=== PATIENT | female | born 1965 | race Caucasian/White ===

== ENCOUNTER 2018-10-27 19:11 | Observation (INO) ==
[2018-10-27] MEDS ORDERED: MoRPHine SULFATE 4 MG/ML 1 ML CARP\\VIAL IV STA (19:39)
[2018-10-27 19:54] LABS: Basophils # (auto) 0.02 K/uL (0-0.2); Basophils % (auto) 0.2 %; Eosinophils # (auto) 0.03 K/uL (0-0.5); Eosinophils % (auto) 0.3 %; Hemoglobin 13.9 g/dL (12.0-16.0); Immature Granulocytes # (auto) 0.02 K/uL (0.00-0.02); Immature Granulocytes % (auto) 0.2 %; Lymphocytes # (auto) 2.23 K/uL (1.2-3.4); Lymphocytes % (auto) 19.8 %; Mean Corpuscular Hgb Conc 34.8 g/dL (32-36); Mean Corpuscular Volume 94.8 fL (80-100); Mean Platelet Volume 10.5 fL (7.4-10.4); Monocytes # (auto) 0.64 K/uL (0.11-0.59); Monocytes % (auto) 5.7 %; Neutrophils # (auto) 8.31 K/uL (1.4-6.5); Neutrophils % (auto) 73.8 %; Platelet Count 314 K/uL (130-400); RDW Coefficient of Variation 12.3 % (11.5-14.5); RDW Standard Deviation 42.3 fL (36.4-46.3); Red Blood Count 4.22 M/uL (4.2-5.4); White Blood Count 11.25 K/uL (4.8-10.8)
[2018-10-27 20:19] LABS: Alanine Aminotransferase 27 U/L (12-78); Albumin Level 4.4 gm/dl (3.4-5.0); Aspartate Aminotransferase 25 U/L (15-37); BUN Creatinine Ratio 21.8 (10-20); Blood Urea Nitrogen 38 mg/dl (7-18); C Reactive Protein 1.25 mg/dl (0-0.29); Calcium 10.6 mg/dl (8.5-10.1); Carbon Dioxide 20 mmol/L (21-32); Chloride 102 mmol/L (98-107); Creatinine Clr Calc Pharmacy 35.3 ml/min; Est GFR (African American) 38.4; Est GFR (Non-African American) 33.1; Glucose 205 mg/dl (70-99); Magnesium 2.3 mg/dl (1.8-2.4); Potassium 5.1 mmol/L (3.5-5.1); Sodium 134 mmol/L (136-145)
[2018-10-27 20:22] LABS: Albumin Globulin Ratio 1.2 (0.9-2); Alkaline Phosphatase 92 U/L (45-117); Bilirubin,Total 0.6 mg/dl (0.2-1); Globulin 3.7 gm/dl (2.5-4.0); Total Protein 8.1 gm/dl (6.4-8.2)
[2018-10-27] MEDS ORDERED: SODIUM CHLORIDE 0.9% 1000ML 1,000 ML IV SCH (20:30)
[2018-10-27] MEDS ORDERED: MoRPHine SULFATE 2 MG/ML CARP IV STA ×2 (20:34→23:56)
[2018-10-27] MEDS ORDERED: OPTIRAY 320 125ml IV PRN (20:57)
--- NOTE | 2018-10-27 21:06 | CT Scan Report ---
CT angio neck with con HISTORY: Pain bilateral neck pain, recent neck adjustment TECHNIQUE: Multiaxial CT angiography of the neck was performed IV contrast: 30 cc All measurem ents were calculated based on NASCET criteria. Maximum intensity projection images were also obtaine d. A dose lowering technique was utilized adhering to the principles of ALARA. COMPARISON STUDY: None. FINDINGS: The aortic arch and proximal great vessels are widely patent. Minimal plaque dimension of the carotid bifurcations. No significant stenotic process of the carotid systems. Small caliber left vertebral vessel on anatomic basis. Vertebral basilar system otherwise is unremark able. No evidence for aneurysm or dissection. His note is made of significant degenerative change of the thoracic spine. Muscular spasm is present. No evidence for compression deformity. IMPRESSION: 1. No significant stenosis or dissection of the carotid or vertebral basilar system. 2. Minimal plaque formation of the carotid bifurcations. 3. Significant degenerative disc change throughout the entire cervical region. 4. Muscle spasm. The above report was generated using voice recognition software. It may contain grammatical, syntax or spelling errors. Electronically signed by: Flakito Frey M.D. 10/27/2018 9:05 PM
--- NOTE | 2018-10-27 22:27 | Magnetic Resonance Report ---
MR cervical spine wo con HISTORY: Pain Neck pain, cannot move neck, recent chiropractor TECHNIQUE: Multiplanar multisequence MRI of the cervical spine was performed without the use of contr ast. COMPARISON STUDY: None. FINDINGS: Considerable degenerative disc change throughout the entire cervical region. Posterior bulg ing discs at virtually all levels. Signal characteristics of the cervical cord are unremarkable. C2-C3: No significant central canal or neural foraminal narrowing. C3-C4: Broad-based bulging disc creating mild impact upon the anterior right cervical cord. C4-C5: . Mild disc herniation. Mild impact right anterior cervical cord. No foramina patent bilateral ly. C5-C6: Broad-based disc herniation creating moderate impact upon the anterior cervical cord. Minimal narrowing of the right neuroforamina at osteophytic bases. C6-C7: Mild broad-based disc herniation. Mild impact anterior cervical cord with mild narrowing neuro foramina bilaterally. C7-T1: No significant central canal or neural foraminal narrowing. IMPRESSION: 1. Considerable degenerative disc change throughout the entire cervical region. 2. Multilevel bulging discs as discussed. 3. Moderate broad-based bulging disc versus mild disc herniation C4-C5. 4. Broad-based disc herniation C5-C6 grade moderate impact upon the anterior cervical cord. 5. Mild broad-based disc herniation C6-C7. The above report was generated using voice recognition software. It may contain grammatical, syntax or spelling errors. Electronically signed by: Flakito Frey M.D. 10/27/2018 10:25 PM
[2018-10-27] MEDS ORDERED: CYCLOBENZAPRINE HCL 10 MG TAB PO STA (22:40)
[2018-10-28] MEDS ORDERED: HYDROmorphone INJ 0.5 MG/0.5 ML SYR IV PRN (00:04)
--- NOTE | 2018-10-28 00:29 | Emergency Department Note ---
History of Present Illness General Chief complaint: Neck Injury/Pain Stated complaint: BACK/NECK/SHOULDER PAIN/PINCHING Time Seen by Provider: 10/27/18 19:17 History of Present Illness Maximum Pain Intensity: 10 This is a 52-year-old female that presents to the emergency department via pr ivate vehicle with complaints of "back/neck/shoulder pain/pinching". The patient states that yesterday all of a sudden she began with tremendous neck and shoulder pain. She notes that there is no recent trauma or injury. She notes that she did have [facility] facilities earlier in the week but she notes they did not cracked the neck violently. She states that she is never had anything quite as severe as this. She denies any chest pain or shortness of breath but notes that she cannot take a deep breath secondary to the amount of pain in the neck region. She denies any recent URI or flulike symptoms. She does note some minimal numbness/tingling down both arms. She notes it hurts to turn the head side to side. She denies any headache or blurred vision. Pain is a 10/10. She notes that she has diabetes. Home Medications Home Medications Medication Instructions Recorded Confirmed Type dextroamphetamine-amphetamine 20 mg PO DAILY PRN 10/27/18 10/27/18 History [Adderall] fluoxetine [Prozac] 20 mg PO DAILY 10/27/18 10/27/18 History insulin aspart U-100 [Novolog 1 pump SUBCUT CONTINOUS 10/27/18 10/27/18 History U-100 Insulin aspart] losartan 50 mg PO DAILY 10/27/18 10/27/18 History lovastatin 40 mg PO DAILY 10/27/18 10/27/18 History Allergies Allergy/AdvReac Type Severity Reaction Status Date / Time CHAPARRO Inhibitors Allergy Intermediate cough Verified 10/27/18 19:35 Penicillins Allergy Intermediate rash Verified 10/27/18 19:35 Past Med/Surg History Medical History DM (diabetes mellitus), type 1 (Chronic) Surgical History History of carpal tunnel surgery History of female sterilization Hx of eye surgery Social History Feels Safe at Home: Yes Smoking Status: Never smoker Review of Systems A total of 10 systems reviewed and were otherwise negative Physical Exam Vital Signs Vital Signs - 24 hr 10/27/18 19:14 10/27/18 22:29 10/27/18 23:46 Temperature 36.8 C Temperature Source Oral Sepsis Recent Fever Within 48 Hours No Sepsis Action Taken by Nursing No Action Required Pulse Rate 97 H Pulse Rate [Finger] 94 H 96 H Respiratory Rate 18 17 16 Respiratory Effort / Characteristics Non-Labored Respiratory Depth Normal Blood Pressure 148/84 H Blood Pressure [Right Arm] 136/79 120/68 Blood Pressure Mean 105 Blood Pressure Mean [Right Arm] 98 85 Pulse Oximetry 100 98 97 Oxygen Delivery Method Room Air Room Air Room Air VITAL SIGNS - Vital signs and nursing notes were reviewed. Stable. Afebrile. GENERAL -52-year-old female appearing her stated age who is in no acute distress but appears uncomfortable, is tearful and is holding the head in a slightly flexed position at the neck with the shoulders raised up as if the muscles in the neck are very tense. Communicates well with provider and answers questions appropriately. SKIN - Without rashes. No meningeal or petechial rash. The skin overlying the neck is unremarkable. HEAD - NC/AT. EYES - PERRL with EOMI bilaterally. Sclera anicteric. EARS - No deformities of external structures noted on gross examination bilaterally. No pain elicited with palpation of the tragus bilaterally. External auditory canals without discharge or otorrhea. Tympanic membranes pearly wilkins without retraction or bulging. No fluid or purulent material visualized behind the TM. Handle of malleus, umbo, cone of light, pars tensa/flaccid all easily visualized. NOSE - Midline and without cyanosis. No epistaxis or purulent drainage noted. Septum midline without deviation or septal hematoma noted. MOUTH/OROPHARYNX - Without perioral cyanosis. Buccal mucosa pink and moist and without leukoplakia. Tongue midline with equal elevation of palate bilaterally. No tonsillar hypertrophy, erythema, or exudates noted. Good dentition noted. NECK -very minimal range of motion of the neck appreciated secondary to patient's level of pain. There are bilateral paraspinous muscular spasms in the cervical spine as well as in the superior trapezius between the shoulder and the neck. These are tender to palpation. No lymphadenopathy noted. No nuchal rigidity. LUNGS - Chest wall symmetric without accessory muscle use, intercostals retractions, or central cyanosis. Normal vesicular breath sounds CTA B/L. No wheezes, rales, or rhonchi appreciated. CARDIAC - RRR with S1/S2. No murmur, rubs, or gallops appreciated. EXTREMITIES - No clubbing or peripheral cyanosis. No pretibial edema present. Within normal limit fur operator strength in the upper extremities as well as bicipital reflex. +5/5 strength noted in UE/LE bilaterally. NEUROLOGIC - Cranial nerves II through XII grossly intact. PSYCH - A&Ox3 and cooperates fully with examiner. Pt is very pleasant and inte racts well with examiner. Course Administered Medications Ioversol (Optiray 320 125ml) 115 ml IV ONCE PRN PRN Reason: Interaction Checking Stop: 10/31/18 20:56 Last Admin: 10/27/18 20:57 Dose: 115 ml Documented by: [id number] Discontinued Medications Cyclobenzaprine HCl (Flexeril) 10 mg PO NOW STA Stop: 10/27/18 22:41 Last Admin: 10/27/18 22:45 Dose: 10 mg Documented by: [id number] Sodium Chloride (Nss 1000ml) 1,000 mls @ 999 mls/hr IV .Q1H1M KANDI Stop: 10/27/18 21:30 Last Infusion: 10/27/18 21:53 Dose: 0 mls/hr Documented by: [id number] Admin: 10/27/18 20:42 Dose: 999 mls/hr Documented by: [id number] Morphine Sulfate (Morphine Sulfate) 4 mg IV NOW STA Stop: 10/27/18 19:40 Last Admin: 10/27/18 19:51 Dose: 4 mg Documented by: [id number] Morphine Sulfate (Morphine Sulfate) 2 mg IV NOW STA Stop: 10/27/18 20:35 Last Admin: 10/27/18 20:42 Dose: 2 mg Documented by: [id number] Morphine Sulfate (Morphine Sulfate) 2 mg IV NOW STA Stop: 10/27/18 23:57 Last Admin: 10/28/18 00:26 Dose: 2 mg Documented by: [id number] Medical Decision Making Laboratory Data Result diagrams: 10/27/18 19:45 10/27/18 19:45 Lab Results 10/27/18 10/27/18 10/27/18 Range/Units 19:45 19:45 19:45 WBC 11.25 H (4.8-10.8) K/uL RBC 4.22 (4.2-5.4) M/uL Hgb 13.9 (12.0-16.0) g/dL Hct 40.0 (37-47) % MCV 94.8 (80-100) fL MCH 32.9 (25-34) pg MCHC 34.8 (32-36) g/dL RDW Std Deviation 42.3 (36.4-46.3) fL RDW Coeff of Emma 12.3 (11.5-14.5) % Plt Count 314 (130-400) K/uL MPV 10.5 H (7.4-10.4) fL Immature Gran % (Auto) 0.2 % Neut % (Auto) 73.8 % Lymph % (Auto) 19.8 % [place] % (Auto) 5.7 % Eos % (Auto) 0.3 % Baso % (Auto) 0.2 % Immature Gran # (Auto) 0.02 (0.00-0.02) K/uL Neut # (Auto) 8.31 H (1.4-6.5) K/uL Lymph # (Auto) 2.23 (1.2-3.4) K/uL [place] # (Auto) 0.64 H (0.11-0.59) K/uL Eos # (Auto) 0.03 (0-0.5) K/uL Baso # (Auto) 0.02 (0-0.2) K/uL ESR 51 H (0-21) mm/hr Sodium 134 L (136-145) mmol/L Potassium 5.1 (3.5-5.1) mmol/L Chloride 102 (98-107) mmol/L Carbon Dioxide 20 L (21-32) mmol/L Anion Gap 12.0 H (3-11) BUN 38 H (7-18) mg/dl Creatinine 1.75 H (0.6-1.2) mg/dl Est Cr Clr Drug Dosing 35.3 ml/min Est GFR ( Amer) 38.4 Est GFR (Non-Af Amer) 33.1 BUN/Creatinine Ratio 21.8 H (10-20) Glucose 205 H (70-99) mg/dl Calcium 10.6 H (8.5-10.1) mg/dl Magnesium 2.3 (1.8-2.4) mg/dl Total Bilirubin 0.6 (0.2-1) mg/dl AST 25 (15-37) U/L ALT 27 (12-78) U/L Alkaline Phosphatase 92 (45-117) U/L Troponin I < 0.015 (0-0.045) ng/ml C-Reactive Protein 1.25 H (0-0.29) mg/dl Total Protein 8.1 (6.4-8.2) gm/dl Albumin 4.4 (3.4-5.0) gm/dl Globulin 3.7 (2.5-4.0) gm/dl Albumin/Globulin Ratio 1.2 (0.9-2) POC Ur Test (NEG) 10/27/18 Range/Units 20:07 WBC (4.8-10.8) K/uL RBC (4.2-5.4) M/uL Hgb (12.0-16.0) g/dL Hct (37-47) % MCV (80-100) fL MCH (25-34) pg MCHC (32-36) g/dL RDW Std Deviation (36.4-46.3) fL RDW Coeff of Emma (11.5-14.5) % Plt Count (130-400) K/uL MPV (7.4-10.4) fL Immature Gran % (Auto) % Neut % (Auto) % Lymph % (Auto) % [place] % (Auto) % Eos % (Auto) % Baso % (Auto) % Immature Gran # (Auto) (0.00-0.02) K/uL Neut # (Auto) (1.4-6.5) K/uL Lymph # (Auto) (1.2-3.4) K/uL [place] # (Auto) (0.11-0.59) K/uL Eos # (Auto) (0-0.5) K/uL Baso # (Auto) (0-0.2) K/uL ESR (0-21) mm/hr Sodium (136-145) mmol/L Potassium (3.5-5.1) mmol/L Chloride (98-107) mmol/L Carbon Dioxide (21-32) mmol/L Anion Gap (3-11) BUN (7-18) mg/dl Creatinine (0.6-1.2) mg/dl Est Cr Clr Drug Dosing ml/min Est GFR ( Amer) Est GFR (Non-Af Amer) BUN/Creatinine Ratio (10-20) Glucose (70-99) mg/dl Calcium (8.5-10.1) mg/dl Magnesium (1.8-2.4) mg/dl Total Bilirubin (0.2-1) mg/dl AST (15-37) U/L ALT (12-78) U/L Alkaline Phosphatase (45-117) U/L Troponin I (0-0.045) ng/ml C-Reactive Protein (0-0.29) mg/dl Total Protein (6.4-8.2) gm/dl Albumin (3.4-5.0) gm/dl Globulin (2.5-4.0) gm/dl Albumin/Globulin Ratio (0.9-2) POC Ur Test NEG (NEG) Imaging Data Radiologist's Impression: CT angio neck with con HISTORY: Pain bilateral neck pain, recent neck adjustment TECHNIQUE: Multiaxial CT angiography of the neck was performed IV contrast: 30 cc All measurements were calculated based on NASCET criteria. Maximum intensity projection images were also obtained. A dose lowering technique was utilized adhering to the principles of ALARA. COMPARISON STUDY: None. FINDINGS: The aortic arch and proximal great vessels are widely patent. Minimal plaque dimension of the carotid bifurcations. No significant stenotic process of the carotid systems. Small caliber left vertebral vessel on anatomic basis. Vertebral basilar system otherwise is unremarkable. No evidence for aneurysm or dissection. His note is made of significant degenerative change of the thoracic spine. Muscular spasm is present. No evidence for compression deformity. IMPRESSION: 1. No significant stenosis or dissection of the carotid or vertebral basilar system. 2. Minimal plaque formation of the carotid bifurcations. 3. Significant degenerative disc change throughout the entire cervical region. 4. Muscle spasm. The above report was generated using voice recognition software. It may contain grammatical, syntax or spelling errors. Electronically signed by: Flakito Frey M.D. 10/27/2018 9:05 PM MR cervical spine wo con HISTORY: Pain Neck pain, cannot move neck, recent chiropractor TECHNIQUE: Multiplanar multisequence MRI of the cervical spine was performed without the use of contrast. COMPARISON STUDY: None. FINDINGS: Considerable degenerative disc change throughout the entire cervical region. Posterior bulging discs at virtually all levels. Signal characteristics of the cervical cord are unremarkable. C2-C3: No significant central canal or neural foraminal narrowing. C3-C4: Broad-based bulging disc creating mild impact upon the anterior right cervical cord. C4-C5: . Mild disc herniation. Mild impact right anterior cervical cord. No foramina patent bilaterally. C5-C6: Broad-based disc herniation creating moderate impact upon the anterior cervical cord. Minimal narrowing of the right neuroforamina at osteophytic bases. C6-C7: Mild broad-based disc herniation. Mild impact anterior cervical cord with mild narrowing neuroforamina bilaterally. C7-T1: No significant central canal or neural foraminal narrowing. IMPRESSION: 1. Considerable degenerative disc change throughout the entire cervical region. 2. Multilevel bulging discs as discussed. 3. Moderate broad-based bulging disc versus mild disc herniation C4-C5. 4. Broad-based disc herniation C5-C6 grade moderate impact upon the anterior cervical cord. 5. Mild broad-based disc herniation C6-C7. The above report was generated using voice recognition software. It may contain grammatical, syntax or spelling errors. Electronically signed by: Flakito Frey M.D. 10/27/2018 10:25 PM MDM Narrative Patient was seen and evaluated as above in room D6. Review was performed of nursing notes and vital signs. After obtaining a thorough history and physical examination the above work up was performed. She presents to us today with what appears to be severe superior trapezius muscle spasms. She is crying she is in so much pain. Her examination to pain ratio appears to be out of proportion. She appears to be a very reasonable individual. I do believe that she is in a great deal of pain. IV access was established. She was given morphine, as I did elect to refrain from Toradol with her underlying history of diabetes as well as refrain from steroids also because of the diabetes. I did elect to obtain a CTA of the neck secondary to her recent chiropractic visit and now with a tremendous amount of neck pain and numbness/tingling down the arms. This was negative for dissection. There is minimal leukocytosis but no anemia. There is evidence of kidney failure with creatinine of 1.75 and BUN of 38. This appears to be similar to previous. Glucose 205. CRP 1.25. UPT negative. Although the patient's creatinine is not ideal benefit versus risk of obtaining a contrasted CTA was discussed and through shared decision making with the patient and attending physician it was felt that this should be obtained. Results as above. There is no dissection. The patient's pain persisted despite pain medication. It was felt that given her presentation, impressive level of pain that an MRI was warranted to further evaluate. Results as above. I believe that the broad-based disc herniation at C5-C6 with moderate impact upon the anterior cervical cord is likely contributing to the patient's presentation. I do not suspect infection. The patient's level of pain again has been impressive throughout her stay despite pain medication and therefore benefit versus risk of inpatient management was discussed. Attempts were made to contact the on-call client application support specialist to discuss management without success. At this time there is no finding to suggest emergent neurovascular process. I do believe at this point it is reasonable to admit the patient for further evaluation and management of the pain as well as pain control. I discussed these findings with hospitalist, Dr. Loaiza. Please refer to further documentation regarding her stay. Case was discussed with the attending physician. In the evaluation and treatment of this patient, the following differential diagnoses were considered: Musculoskeletal Strain, Discitis, Cervical Spine Fracture, Cervical Spine Dislocation, Cervical Spine Subluxation, Cervical Spondylosis, Fibromyalgia, Osteoarthritis, Polymyalgia Rheumatica, Psychogenic Pain Disorder, Tumor of Soft Tissue or Spine, among others. Impression & Plan Cervical radiculopathy, Neck muscle spasm, Intractable pain Discharge Plan Visit Data Chief Complaint: Neck Injury/Pain Stated Complaint: BACK/NECK/SHOULDER PAIN/PINCHING ED Provider: [facility] ED Midlevel Provider: Ti Jensen Discharge Problem: Cervical radiculopathy, Neck muscle spasm, Intractable pain Patient Disposition: Home - Self-Care Condition: Good Forms Stand Alone Forms: My [facility] Gerrard Kivra, Important Visit Information Prescriptions Prescriptions: No Action losartan 50 mg Tablet 50 mg PO DAILY RF: 0 lovastatin 40 mg Tablet 40 mg PO DAILY RF: 0 Novolog U-100 Insulin aspart 100 unit/mL Solution 1 pump SUBCUT CONTINOUS RF: 0 dextroamphetamine-amphetamine [Adderall] 20 mg Tablet 20 mg PO DAILY PRN (Reason: HIGH STRESS TIMES) RF: 0 fluoxetine [Prozac] 20 mg Capsule 20 mg PO DAILY RF: 0 Referrals Referrals: Antonio Cristobal MD [Primary Care Provider] -
[2018-10-28 00:36] LABS: Troponin I < 0.015 ng/ml (0-0.045)
--- NOTE | 2018-10-28 00:58 | XRay Report ---
SINGLE VIEW CHEST CLINICAL HISTORY: Renal failure. FINDINGS: An AP, portable, upright chest radiograph is obtained. No prior studies are available for c omparison at the time of dictation. The examination is degraded by portable technique and patient rot ation. The cardiomediastinal silhouette is unremarkable. The lungs and pleural spaces are clear. No pneumothorax is seen. The bony thorax is grossly intact. IMPRESSION: No active disease in the chest. Electronically signed by: Km Henry M.D. 10/28/2018 12:56 AM
--- NOTE | 2018-10-28 01:12 | History & Physical Report ---
Date of Service October 28, 2018 Assessment & Plan (1) Cervical radiculopathy: Intractable symptoms hypertension, stable DM 1 on insulin pump, reasonable control as of recent outpatient hemoglobin A1c of 7.4 last May 2018 ARF on CRI, possible clinical dehydration OBS GMF Analgesia Orthopedic spine consult RE cervical radiculopathy Baseline UA, monitor creatinine sounds to IV fluids, hold home losartan until creatinine at baseline Pharmacy glycemic consult given patient insulin pump, update hemoglobin A1c DVT prophylaxis. SCDs RE possible pain management procedure following Orthopedics eval Full code History of Present Illness Chief Complaint: Neck pain Primary Care Provider: Antonio Cristobal MD History obtained from patient, family, and records. Medical history significant for hypertension, DM 1 on insulin pump, CRI baseline creatinine 1.3. Patient woke up yesterday morning with pricking posterior neck pain radiating left arm and mid back. No extremity weakness although movement limited due to worsening of pain with motion. Worse with motion. No recent change in sleep position/habits. No fever, no chills, No chest pain, no S OB. No bowel, no bladder incontinence. Poor appetite. 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 Allergies Allergy/AdvReac Type Severity Reaction Status Date / Time CHAPARRO Inhibitors Allergy Intermediate cough Verified 10/27/18 19:35 Penicillins Allergy Intermediate rash Verified 10/27/18 19:35 Home Medications Home Medications Medication Instructions Recorded Confirmed Type dextroamphetamine-amphetamine 20 mg PO DAILY PRN 10/27/18 10/27/18 History [Adderall] fluoxetine [Prozac] 20 mg PO DAILY 10/27/18 10/27/18 History insulin aspart U-100 [Novolog 1 pump SUBCUT CONTINOUS 10/27/18 10/27/18 History U-100 Insulin aspart] losartan 50 mg PO DAILY 10/27/18 10/27/18 History lovastatin 40 mg PO DAILY 10/27/18 10/27/18 History Past Med/Surg History Social History Preferred Language: Welsh Communication Ability: Effective Beliefs That Will Affect Care: None Current Living Situation: Spouse Other Information That Helps Us Care for You: No Feels Safe at Home: Yes Safety Concerns: Feels Safe At This Time Smoking Status: Never smoker Hx Alcohol Use: Yes Hx Substance Use: No Review of Systems As per HPI, all 10 systems reviewed, all other ROS negative Physical Exam Vital Signs (Past 24 Hours): Last Vital Signs Temp 36.8 C 10/27/18 19:14 Pulse 96 H 10/27/18 23:46 Resp 16 10/27/18 23:46 BP 120/68 10/27/18 23:46 Pulse Ox 97 10/27/18 23:46 Physical Exam: GENERAL: uncomfortable, obese, no respiratory distress SKIN: Normal color, warm HEENT: [place] palpebral conjunctivae, no ptosis, dry buccal mucosa NECK : Tenderness left lateral neck, limited R OM CHEST : CTA, no tenderness HEART : RRR, no obvious murmurs ABDOMEN: Some distention, nontender EXTREMITIES : No LE swelling/tenderness, no other conspicuous deformities noted NEUROLOGIC : Coherent, no facial asymmetry, equal MMTs albeit weak grasp Results & Data Laboratory Results Laboratory Results WBC 11.25 K/uL (4.8-10.8) H 10/27/18 19:45 RBC 4.22 M/uL (4.2-5.4) 10/27/18 19:45 Hgb 13.9 g/dL (12.0-16.0) 10/27/18 19:45 Hct 40.0 % (37-47) 10/27/18 19:45 MCV 94.8 fL (80-100) 10/27/18 19:45 MCH 32.9 pg (25-34) 10/27/18 19:45 MCHC 34.8 g/dL (32-36) 10/27/18 19:45 RDW Std Deviation 42.3 fL (36.4-46.3) 10/27/18 19:45 RDW Coeff of Emma 12.3 % (11.5-14.5) 10/27/18 19:45 Plt Count 314 K/uL (130-400) 10/27/18 19:45 MPV 10.5 fL (7.4-10.4) H 10/27/18 19:45 Immature Gran % (Auto) 0.2 % 10/27/18 19:45 Neut % (Auto) 73.8 % 10/27/18 19:45 Lymph % (Auto) 19.8 % 10/27/18 19:45 Hart % (Auto) 5.7 % 10/27/18 19:45 Eos % (Auto) 0.3 % 10/27/18 19:45 Baso % (Auto) 0.2 % 10/27/18 19:45 Immature Gran # (Auto) 0.02 K/uL (0.00-0.02) 10/27/18 19:45 Neut # (Auto) 8.31 K/uL (1.4-6.5) H 10/27/18 19:45 Lymph # (Auto) 2.23 K/uL (1.2-3.4) 10/27/18 19:45 Hart # (Auto) 0.64 K/uL (0.11-0.59) H 10/27/18 19:45 Eos # (Auto) 0.03 K/uL (0-0.5) 10/27/18 19:45 Baso # (Auto) 0.02 K/uL (0-0.2) 10/27/18 19:45 ESR 51 mm/hr (0-21) H 10/27/18 19:45 Sodium 134 mmol/L (136-145) L 10/27/18 19:45 Potassium 5.1 mmol/L (3.5-5.1) 10/27/18 19:45 Chloride 102 mmol/L (98-107) 10/27/18 19:45 Carbon Dioxide 20 mmol/L (21-32) L 10/27/18 19:45 Anion Gap 12.0 (3-11) H 10/27/18 19:45 BUN 38 mg/dl (7-18) H 10/27/18 19:45 Creatinine 1.75 mg/dl (0.6-1.2) H 10/27/18 19:45 Est Cr Clr Drug Dosing 35.3 ml/min 10/27/18 19:45 Est GFR ( Amer) 38.4 10/27/18 19:45 Est GFR (Non-Af Amer) 33.1 10/27/18 19:45 BUN/Creatinine Ratio 21.8 (10-20) H 10/27/18 19:45 Glucose 205 mg/dl (70-99) H 10/27/18 19:45 Calcium 10.6 mg/dl (8.5-10.1) H 10/27/18 19:45 Magnesium 2.3 mg/dl (1.8-2.4) 10/27/18 19:45 Total Bilirubin 0.6 mg/dl (0.2-1) 10/27/18 19:45 AST 25 U/L (15-37) 10/27/18 19:45 ALT 27 U/L (12-78) 10/27/18 19:45 Alkaline Phosphatase 92 U/L (45-117) 10/27/18 19:45 Troponin I < 0.015 ng/ml (0-0.045) 10/27/18 19:45 C-Reactive Protein 1.25 mg/dl (0-0.29) H 10/27/18 19:45 Total Protein 8.1 gm/dl (6.4-8.2) 10/27/18 19:45 Albumin 4.4 gm/dl (3.4-5.0) 10/27/18 19:45 Globulin 3.7 gm/dl (2.5-4.0) 10/27/18 19:45 Albumin/Globulin Ratio 1.2 (0.9-2) 10/27/18 19:45 POC Ur Test NEG (NEG) 10/27/18 20:07 Diagnostic Findings Cervical MRI: 1. Considerable degenerative disc change throughout the entire cervical region. 2. Multilevel bulging discs as discussed. 3. Moderate broad-based bulging disc versus mild disc herniation C4-C5. 4. Broad-based disc herniation C5-C6 grade moderate impact upon the anterior cervical cord. 5. Mild broad-based disc herniation C6-C7.
[2018-10-28] MEDS ORDERED: OXYCODONE/ACETAMINOPHEN 5mg/325mg TAB PO PRN (01:15)
[2018-10-28] MEDS ORDERED: PROCHLORPERAZINE 5 MG in SYRINGE 4 ML IV PRN (01:15)
[2018-10-28] MEDS ORDERED: CYCLOBENZAPRINE HCL 5 MG TAB PO PRN (01:16)
[2018-10-28] MEDS ORDERED: LORazepam 0.25 MG/0.5 ML VIAL IV PRN (01:16)
[2018-10-28] MEDS ORDERED: ACETAMINOPHEN 325 MG TAB PO PRN (01:21)
[2018-10-28] MEDS ORDERED: HYDROmorphone INJ 1 MG/ML SYRINGE IV STA (01:22)
[2018-10-28] MEDS ORDERED: PHARMACY GLYCEMIC MGMT CONSULT PRN (01:39)
[2018-10-28] MEDS ORDERED: SODIUM CHLORIDE 0.9% 1000ML 1,000 ML IV ONE (02:30)
[2018-10-28] MEDS ORDERED: GLUCAGON FOR INJ 1 MG VIAL SQ PRN (03:30)
[2018-10-28] MEDS ORDERED: DEXTROSE 50% 50 ML SYRINGE IV PRN (03:30)
[2018-10-28] MEDS ORDERED: INSULIN ASPART 100 UNITS/ML VIAL SC PRN (03:30)
[2018-10-28] MEDS ORDERED: GLUCOSE 10 TABS/TUBE PO PRN (03:30)
[2018-10-28] MEDS ORDERED: GLUCOSE 40% GEL 15 GM TUBE PO PRN (03:30)
[2018-10-28 06:50] LABS: Estimated Average Glucose 151 mg/dl; Hemoglobin A1C 6.9 % (4.5-5.6)
[2018-10-28 06:52] LABS: Appearance Urine Clear (Clear); Bacteria Urine Automated Negative (Negative); Bilirubin Urine Negative (Negative); Blood Urine Negative (Negative); Cast Urine Automated 0 /lpf (0-5); Color Urine Yellow; Epithelial Cell Urine Auto >30 /lpf (0-5); Glucose Urine UA Negative (Negative); Ketones Urine Trace (Negative); Leukocyte Esterase Urine Negative (Negative); Nitrite Urine Negative (Negative); Protein Urine 1+ (Negative); RBC Urine Automated 0-4 /hpf (0-4); Specific Gravity Urine 1.041 (1.000-1.030); Urobilinogen Urine Negative (Negative)
[2018-10-28 07:06] LABS: Basophils # (auto) 0.01 K/uL (0-0.2); Basophils % (auto) 0.1 %; Eosinophils # (auto) 0.02 K/uL (0-0.5); Eosinophils % (auto) 0.2 %; Hematocrit (blood only) 33.9 % (37-47); Hemoglobin 11.5 g/dL (12.0-16.0); Immature Granulocytes # (auto) 0.02 K/uL (0.00-0.02); Immature Granulocytes % (auto) 0.2 %; Lymphocytes # (auto) 1.83 K/uL (1.2-3.4); Lymphocytes % (auto) 22.3 %; Mean Corpuscular Hgb Conc 33.9 g/dL (32-36); Mean Platelet Volume 10.5 fL (7.4-10.4); Monocytes # (auto) 0.49 K/uL (0.11-0.59); Neutrophils # (auto) 5.85 K/uL (1.4-6.5); Neutrophils % (auto) 71.2 %; Platelet Count 265 K/uL (130-400); RDW Coefficient of Variation 12.6 % (11.5-14.5); RDW Standard Deviation 44.1 fL (36.4-46.3); Red Blood Count 3.53 M/uL (4.2-5.4); White Blood Count 8.22 K/uL (4.8-10.8)
[2018-10-28 07:35] LABS: BUN Creatinine Ratio 20.3 (10-20); Calcium 8.8 mg/dl (8.5-10.1); Est GFR (African American) 48.6; Est GFR (Non-African American) 41.9; Potassium 4.3 mmol/L (3.5-5.1)
[2018-10-28] MEDS: NovoLOG INSULIN PUMP SCH ×2 (09:32→12:13)
[2018-10-28] MEDS: FLUOXETINE HCL 20 MG CAP PO SCH (09:34)
[2018-10-28] MEDS: LOVASTATIN 20 MG TAB PO SCH (09:34)
[2018-10-28] MEDS: LIDOCAINE 5% 1 PATCH TD SCH (09:34)
--- NOTE | 2018-10-28 09:38 | Orthopedic Consultation ---
Date of Consultation October 28, 2018 Assessment & Plan (1) Cervical radiculopathy: I did review with the patient her findings on the MRI. She has 2 level disc disease most impressive at C5-6 with compromise of the canal. There is some moderate neural foraminal disease as well. I discussed the treatment plan which may include a trial of IV steroids and a possible consultation with interventional pain management. If she fails to improve we may need to consider surgical intervention. She understands and agrees with this plan. Present on Admission?: Yes History of Present Illness Reason for Consultation: Neck and arm pain Attending Physician: Alexa Enamorado History of Present Illness This is a 52-year-old female that states she began experiencing significant neck and left arm symptoms beginning . She denies any precipitating trauma fall or event. The symptoms progressed to the point of severe discomfort and subsequently she was taken to the emergency room. She was admitted for pain control. This morning her symptoms are modestly improved though she is still is very uncomfortable. She has marked limitations to cervical range of motion. Describes her pain involving the left interscapular region rating down the left arm involving all of her fingers. She has some component of right upper extremity pain as well. She is right-hand dominant. She denies any loss of bowel or bladder control denies any balance difficulties. Allergies Allergy/AdvReac Type Severity Reaction Status Date / Time CHAPARRO Inhibitors Allergy Intermediate cough Verified 10/27/18 19:35 Penicillins Allergy Intermediate rash Verified 10/27/18 19:35 Home Medications Home Medications Medication Instructions Recorded Confirmed Type dextroamphetamine-amphetamine 20 mg PO DAILY PRN 10/27/18 10/27/18 History [Adderall] fluoxetine [Prozac] 20 mg PO DAILY 10/27/18 10/27/18 History insulin aspart U-100 [Novolog 1 pump SUBCUT CONTINOUS 10/27/18 10/27/18 History U-100 Insulin aspart] losartan 50 mg PO DAILY 10/27/18 10/27/18 History lovastatin 40 mg PO DAILY 10/27/18 10/27/18 History Patient History Social History Preferred Language: Korean Communication Ability: Effective Beliefs That Will Affect Care: None Current Living Situation: Spouse Other Information That Helps Us Care for You: No Feels Safe at Home: Yes Safety Concerns: Feels Safe At This Time Smoking Status: Never smoker Hx Alcohol Use: Yes Hx Substance Use: No Physical Exam Vital Signs (Past 24 Hours): Last Vital Signs Temp 37.0 C 10/28/18 07:03 Pulse 83 10/28/18 07:03 Resp 16 10/28/18 07:03 BP 110/69 10/28/18 07:03 Pulse Ox 93 10/28/18 07:03 Physical Exam: On exam she exhibits a positive Spurling sign to the left. She is marked limitations with cervical rotation flexion extension without reproduction of radicular pain. She exhibits weak grasp bilaterally as well as limitations with biceps triceps testing. This is most likely consistent with breakaway weakness secondary to pain. She has some decreased sensation to light touch and cold on the left compared to the right.
--- NOTE | 2018-10-28 12:22 | Pharmacy Report ---
Glycemic Control Consultation - Date of Service October 28, 2018 - Scope Scope: Glycemic Pharmacist consulted by Dr Oreilly on 10/28/18 for glycemic control and to write orders per [facility] inpatient glycemic control protocol - Objective Weight: 75.6 kg Accuchecks BSG (last 24hrs): 10/27/18 10/28/18 19:45 06:55 Glucose 205 H 100 H Laboratory Data (last 24hrs): 10/27/18 10/28/18 19:45 06:55 Potassium 5.1 4.3 D Carbon Dioxide 20 L 24 Anion Gap 12.0 H 4.0 Creatinine 1.75 H 1.44 H D Est Cr Clr Drug Dosing 35.3 43.0 HbA1c: Hemoglobin A1c 6.9 % (4.5-5.6) H 10/27/18 19:45 - Recent Pertinent Medications Outpatient Anti-diabetic Regimen: * Novolog pump: see settings detailed below * A1c = 6.9 % 10/27/18 - Assessment & Plan Assessment & Plan: ASSESSMENT: * Ms. Machuca is a type 1 diabetic female. She is unknown to the pharmacy glycemic service. Her outpt glycemic management is improving: her A1C in May was 7.4, today it is 6.9%. She is being worked up for cervical radiculopathy. * I did meet with her bedside and obtained her pump settings: * 0000 - 0600 0.5u/hr * 0600 - 1200 0.55u/hr * 1200 - 1800 0.625u/hr * 1800 - 0000 0.475u/hr * Daily basal insulin: ~13 units * CF: 18 with a goal range of 80-120mg/dL * Orthopaedics is starting DXM 8 IV Q8, I d/w the patient the risks/benefits associated with an insulin gtt and the decision was made to d/c her pump at 1200 and initiate an insulin infsn at 1300 today (we will start at her basal rate and further titrations to be delineated per the insulin infsn calculator. PLAN FOR INPATIENT GLYCEMIC CONTROL: * Starting IV insulin infusion per moderate stress protocol * Goal Range 120 - 180 mg/dl * Unsure of her insulin requirements while she is on steroids, she is not comfortable titrating the pump herself. * Please note that the plan above was derived based on current level of insulin resistance and hospital stress. These recommendations are appropriate for inpatient admission only. Plan of care upon discharge will need to be reassessed to avoid potential outpatient hypo/hyperglycemia. Thank you.
[2018-10-28] MEDS: CARBOHYDRATES FOR HYPOGLYCEMIA PO PRN ×2 (12:37→13:01)
[2018-10-28] MEDS: DEXAMETHASONE SOD PHOSPHATE 8 MG in SYRINGE 0 ML IV SCH ×2 (13:53→21:49)
[2018-10-28] MEDS: INSULIN REGULAR 250 UNITS in SODIUM CHLORIDE 0.9% 247.5 ML IV SCH (14:30)
[2018-10-28] MEDS: INSULIN ASPART 100 UNITS/ML 3 ML PEN SC SCH ×3 (14:32→21:42)
[2018-10-28] MEDS ORDERED: MoRPHine SULFATE 2 MG/ML CARP IV PRN (16:15)
--- NOTE | 2018-10-28 16:17 | Hospitalist Progress Note ---
Date of Service October 28, 2018 Assessment & Plan (1) Cervical radiculopathy: Presented with increased neck pain radiating down the left shoulder and left arm limiting range of motion. MRI cervical spine shows level 2 disc disease most impressive at C5-C6 with compromise of canal with small moderate neural foraminal disease. Also recommends trial of IV steroids and consider pain management consult if symptoms not controlled by pain regimen. If she fails, they may consider surgical intervention -Current regimen: IV Dexamethasone 8 mg q 8 hours, Percocet 5 mg q 4 hours PRN pain, hypertension, stable Flexeril 10 mg as needed for spasms. Will discontinue IV dilaudid and change to IV morphine 2 mg PRN DM 1 -On insulin pump -Hemoglobin A1c of 7.4 last May 2018 -ISS, Accuchecks -Pharmacologic consult RO ON CKD Creatinine trending down -Holding Losartan -IV Fluids -Creatinine down to 1.44 DVT prophylaxis. SCDs; Low risk. Encourage mobilization protocol Full code Disposition Medical mx in progress Subjective Patient continues to have pain in neck, radiating to around left shoulder and across upper back. Pain does radiate down to upper left arm. No trauma, fever, chills Physical Exam Vital Signs (Past 24 Hours): Last Vital Signs Temp 37.1 C 10/28/18 15:59 Pulse 79 10/28/18 15:59 Resp 15 10/28/18 15:59 BP 118/73 10/28/18 15:59 Pulse Ox 94 10/28/18 15:59 Constitutional: cooperative and + overweight; not in distress Neck: Significant limitation with cervical rotation, flexion, extension. Respiratory: normal respiratory effort, lungs clear to auscultation Cardiovascular: RRR, no murmur, no edema Neurologic: Powerdecreased weakness bilaterally with the grasp likely secondary to pain Rest of the power- 5/5 all extremities
[2018-10-28] MEDS: INSULIN HUMAN NPH SC SCH (21:58)
[2018-10-29] MEDS: DEXAMETHASONE SOD PHOSPHATE 8 MG in SYRINGE 0 ML IV SCH (05:35)
[2018-10-29 06:55] LABS: BUN Creatinine Ratio 21.7 (10-20); Calcium 9.4 mg/dl (8.5-10.1); Creatinine Clr Calc Pharmacy 56.3 ml/min; Est GFR (African American) 67.3; Est GFR (Non-African American) 58.1; Hematocrit (blood only) 35.7 % (37-47); Hemoglobin 12.4 g/dL (12.0-16.0); Mean Corpuscular Hgb Conc 34.7 g/dL (32-36); Mean Corpuscular Volume 94.9 fL (80-100); Mean Platelet Volume 10.8 fL (7.4-10.4); Platelet Count 290 K/uL (130-400); RDW Coefficient of Variation 12.1 % (11.5-14.5); RDW Standard Deviation 41.6 fL (36.4-46.3); Red Blood Count 3.76 M/uL (4.2-5.4); White Blood Count 7.49 K/uL (4.8-10.8)
[2018-10-29] MEDS: LOVASTATIN 20 MG TAB PO SCH (08:43)
[2018-10-29] MEDS: FLUOXETINE HCL 20 MG CAP PO SCH (08:43)
[2018-10-29] MEDS: LIDOCAINE 5% 1 PATCH TD SCH (08:43)
[2018-10-29] MEDS: INSULIN ASPART 100 UNITS/ML 3 ML PEN SC SCH ×4 (08:44→21:46)
[2018-10-29] MEDS: INSULIN HUMAN NPH SC SCH (08:46)
--- NOTE | 2018-10-29 09:37 | Pharmacy Report ---
Pharmacy Glycemic Short Note 2 - Date of Service October 29, 2018 - Glycemic Short BSG Results (Last 24 hours): 10/28/18 10/28/18 10/28/18 12:28 12:32 12:52 Glucose POC Glucose 60 L* 55 L* 59 L* 10/28/18 10/28/18 10/28/18 13:11 13:57 14:29 Glucose POC Glucose 77 133 H 218 H 10/28/18 10/28/18 10/28/18 15:22 16:24 17:25 Glucose POC Glucose 293 H 278 H 270 H 10/28/18 10/28/18 10/28/18 18:31 18:34 19:32 Glucose POC Glucose 337 H 325 H 391 H* 10/28/18 10/28/18 10/28/18 19:33 20:34 20:35 Glucose POC Glucose 378 H* 362 H* 367 H* 10/28/18 10/28/18 10/28/18 21:35 22:35 23:28 Glucose POC Glucose 350 H 289 H 261 H 10/29/18 10/29/18 10/29/18 00:34 01:26 02:29 Glucose POC Glucose 188 H 169 H 138 H 10/29/18 10/29/18 10/29/18 03:29 04:31 05:28 Glucose POC Glucose 125 H 107 H 105 H 10/29/18 10/29/18 10/29/18 06:05 06:29 06:44 Glucose 82 POC Glucose 89 82 10/29/18 10/29/18 07:00 08:01 Glucose POC Glucose 89 156 H OUTPATIENT ANTIDIABETIC REGIMEN: * NovoLog insulin pump * 0000 - 0600 0.5u/hr * 0600 - 1200 0.55u/hr * 1200 - 1800 0.625u/hr * 1800 - 0000 0.475u/hr * Daily basal insulin: ~13 units * CF: 18 with a goal range of 80-120mg/dL ASSESSMENT: * Pt with excellent outpatient control per recent A1c. Pt is managed on NovoLog insulin pump. * Pt initiated on dexamethasone 8mg IV Q8hrs leading to severe, sustained, hyperglycemia. * Outpatient insulin pump stopped and pt started on IV insulin infusion with SQ insulin coverage. Pump stopped bc Patients can require up to +3x outpatient dosing of insulin while on steroids. Pumps are typically not able to accommodate this dosing. * Will start with 2x outpatient dosing and adjust based on BSG trends and steroid dosing * IV insulin infusion transitioned itself off this morning with 13 units of NPH on board. Will continue just SQ basal bolus insulin for patient comfort/convenience and re-initiated IV insulin infusion if sustained hyperglycemia reoccurs (BSG >180 mg/dl x 2) PLAN FOR INPATIENT GLYCEMIC CONTROL: * Hold outpatient insulin pump diabetes * Basal insulin * NPH 13 units SQ BID * Bolus insulin * NovoLog per scale ACHS or Q6hrs while NPO. Q4hr checks overnight if IV insulin infusion not resumed. * Goal Range: Low 110 mg/dL - High 140 mg/dL * Correction Factor: 30 mg/dL/unit * Nutritional / Prandial insulin per carb ratio of 1 unit per 10 grams CHO consumed PLAN FOR DISCHARGE: * Pt with excellent outpatient control. Pt to resume NovoLog insulin pump per outpatient settings.
[2018-10-29] MEDS ORDERED: INSULIN HUMAN NPH SC SCH ×4 (12:00→22:00)
[2018-10-29] MEDS ORDERED: PHARMACY GLYCEMIC MGMT CONSULT STA (12:33)
[2018-10-29] MEDS ORDERED: methylPREDNISolone 4 MG TAB, 6 DAY TAPER PO SCH (13:45)
--- NOTE | 2018-10-29 13:45 | Hospitalist Progress Note ---
Date of Service October 29, 2018 Assessment & Plan (1) Cervical radiculopathy: Presented with increased neck pain radiating down the left shoulder and left arm limiting range of motion. MRI cervical spine shows level 2 disc disease most impressive at C5-C6 with compromise of canal with small moderate neural foraminal disease. -Ortho recommends trial of IV steroids and consider pain management consult if symptoms not controlled by pain regimen. If she fails, they may consider surgical intervention. -Current regimen: IV Dexamethasone 8 mg q 8 hours, Percocet 5 mg q 4 hours PRN pain, hypertension, stable Flexeril 10 mg as needed for spasms. -Clinically much improved- Not using IV morphine PLAN -Will discontinue IV morphine and continue with lidoderm patch, Oxycodone PRN. -Will discontinue IV Dexamethasone and start on medrol dose pack (blood sugar- 400s) DM 1 Blood sugar is very uncontrolled - in 400s due to IV steroids. -On insulin pump -Hemoglobin A1c of 7.4 last May 2018 -ISS, Accuchecks -Pharmacologic consult for glycemic control RO ON CKD- resolved Creatinine peaked at 1.44, now down to 1.10 -Holding Losartan--> restart as creatinine normalized and BP elevated -IV Fluids DVT prophylaxis. SCDs; Low risk. Encourage mobilization protocol Full code Disposition Changed IV meds to PO. Will see how she does on Po regiment. If better, okay to discharge home tomorrow Subjective Patient is feeling much better today. Neck pain, movement has significantly improved. No trauma, fever, chills Blood sugars are very high running in 400s with IV dexamethasone Physical Exam Vital Signs (Past 24 Hours): Last Vital Signs Temp 36.5 C 10/29/18 08:00 Pulse 71 10/29/18 08:00 Resp 15 10/29/18 08:00 BP 156/81 H 10/29/18 08:00 Pulse Ox 95 10/29/18 08:00 Constitutional: cooperative and + overweight; not in distress Neck: No point tenderness. Restriction in range of motion, much improved since admission. Respiratory: normal respiratory effort, lungs clear to auscultation Cardiovascular: RRR, no murmur, no edema Neurologic: Power5/5 all extremities
[2018-10-29] MEDS ORDERED: LOSARTAN POTASSIUM 50 MG TAB PO SCH ×2 (14:30→21:00)
[2018-10-29] MEDS: methylPREDNISolone 4 MG TAB PO SCH ×2 (14:41→17:58)
[2018-10-29] MEDS ORDERED: Nursing to Pharmacy Communication ONE (14:43)
[2018-10-29] MEDS: DC IV INSULIN INFUSION 1 EA DEVI SCH ×5 (16:16→20:00)
[2018-10-29] MEDS ORDERED: methylPREDNISolone 4 MG TAB PO SCH (21:00)
[2018-10-29 23:37] VITALS: O2SAT 97
[2018-10-30] MEDS ORDERED: INSULIN HUMAN NPH SC ONE
[2018-10-30] MEDS ORDERED: INSULIN ASPART 100 UNITS/ML 3 ML PEN SC ONE (04:00)
[2018-10-30] MEDS: methylPREDNISolone 4 MG TAB PO SCH ×2 (06:28→12:45)
[2018-10-30 08:28] VITALS: BP 138/76; TEMP 97.9
[2018-10-30] MEDS: INSULIN REGULAR 250 UNITS in SODIUM CHLORIDE 0.9% 247.5 ML IV SCH (08:33)
[2018-10-30] MEDS: INSULIN ASPART 100 UNITS/ML 3 ML PEN SC SCH (08:36)
[2018-10-30] MEDS: LIDOCAINE 5% 1 PATCH TD SCH (08:37)
[2018-10-30] MEDS: LOVASTATIN 20 MG TAB PO SCH (08:37)
[2018-10-30] MEDS: FLUOXETINE HCL 20 MG CAP PO SCH (08:37)
[2018-10-30] MEDS ORDERED: INSULIN ASPART 100 UNITS/ML 3 ML PEN SC SCH (13:00)
--- NOTE | 2018-10-30 13:41 | Hospitalist Progress Note ---
Date of Service October 30, 2018 Assessment & Plan (1) Cervical radiculopathy: Presented with increased neck pain radiating down the left shoulder and left arm limiting range of motion. MRI cervical spine shows level 2 disc disease most impressive at C5-C6 with compromise of canal with small moderate neural foraminal disease. -Ortho recommends trial of IV steroids and consider pain management consult if symptoms not controlled by pain regimen. If she fails, they may consider surgical intervention. -Initial regimen: IV Dexamethasone 8 mg q 8 hours, Percocet 5 mg q 4 hours PRN pain, Lidoderm patch, Flexiril 10 mg PRN. Yesterday changed to PO regimen: Medrol Dose pack, Oxycodone PRN. Has not required any PO pain medications today. -Ok to discharge home today DM 1 Blood sugar is very uncontrolled - in 400s due to IV steroids. -On insulin pump as at home. Now sugars are better. IV steroids were discontinued yesterday and started on PO steroids -Hemoglobin A1c of 7.4 last May 2018 -ISS, Accuchecks -Pharmacologic consulted for glycemic control RO ON CKD- Resolved Creatinine peaked at 1.44, now down to 1.10 -Held losartan initially---> Restarted as creatinine stabilized -S/P IV Fluids DVT prophylaxis. SCDs; Low risk. Encourage mobilization protocol Full code Disposition Eager to be discharged home Subjective Patient is feeling much better today. Neck pain, movement has significantly improved. No trauma, fever, chills Not used pain medications since today AM Blood sugars are much better controlled Physical Exam Vital Signs (Past 24 Hours): Last Vital Signs Temp 36.6 C 10/30/18 08:23 Pulse 71 10/30/18 08:23 Resp 16 10/30/18 08:23 BP 138/76 10/30/18 08:23 Pulse Ox 97 10/30/18 08:23 Constitutional: cooperative and + overweight; not in distress Neck: Improvement in neck movement, no point tenderness Respiratory: normal respiratory effort, lungs clear to auscultation Cardiovascular: RRR, no murmur, no edema Neurologic: No deficits
[2018-10-30 14:10] VITALS: PULSE 83
--- NOTE | 2018-10-30 14:13 | Discharge Summary ---
Date of Service October 30, 2018 Admission HPI Per Admitting Provider History obtained from patient, family, and records. Medical history significant for hypertension, DM 1 on insulin pump, CRI baseline creatinine 1.3. Patient woke up yesterday morning with pricking posterior neck pain radiating left arm and mid back. No extremity weakness although movement limited due to worsening of pain with motion. Worse with motion. No recent change in sleep position/habits. No fever, no chills, No chest pain, no S OB. No bowel, no bladder incontinence. Poor appetite. 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 Cervical radiculopathy secondary to cervical disc disease level 2 with foraminal narrowing 2. Uncontrolled DM- Type 1 secondary to steroids 3. RO on CKD SECONDARY DIAGNOSIS ON DISCHARGE 1. Hypertension Discharge Exam Constitutional cooperative and + overweight; not in distress Neck Improved cervical neck range of motion No point tenderness Respiratory normal respiratory effort, lungs clear to auscultation Cardiovascular RRR, no murmur, no edema Discharge Data Allergies Allergy/AdvReac Type Severity Reaction Status Date / Time CHAPARRO Inhibitors Allergy Intermediate cough Verified 10/27/18 19:35 Penicillins Allergy Intermediate rash Verified 10/27/18 19:35 Consultations 10/28/18 00:00 ED Decision to Admit Stat 10/28/18 01:16 Consult Orthopedic Surgery Routine Ordered Studies 10/27/18 19:31 CT angio neck with con Stat 10/27/18 21:31 MR cervical spine wo con Stat Hospital Course (1) Cervical radiculopathy: Presented with increased neck pain radiating down the left shoulder and left arm limiting range of motion. MRI cervical spine shows level 2 disc disease most impressive at C5-C6 with compromise of canal with small moderate neural foraminal disease. -Ortho recommends trial of IV steroids and consider pain management consult if symptoms not controlled by pain regimen. If she fails, they may consider surgical intervention. -Initial regimen: IV Dexamethasone 8 mg q 8 hours, Percocet 5 mg q 4 hours PRN pain, Lidoderm patch, Flexiril 10 mg PRN. Yesterday changed to PO regimen: Medrol Dose pack, Oxycodone PRN. Has not required any PO pain medications today. -Ok to discharge home today on Tylenol PRN , Medrol Dose pack DM 1 Blood sugar is very uncontrolled - in 400s due to IV steroids. -On insulin pump as at home. Now sugars are better. IV steroids were discon tinued yesterday and started on PO steroids -Hemoglobin A1c of 7.4 last May 2018 -ISS, Accuchecks -Pharmacologic consulted for glycemic control RO ON CKD- Resolved Creatinine peaked at 1.44, now down to 1.10 -Held losartan initially---> Restarted as creatinine stabilized -S/P IV Fluids DVT prophylaxis. SCDs; Low risk. Encourage mobilization protocol Full code Disposition Eager to be discharged home Total Time Total Time Spent Total Time Spent (In Minutes): 35 minutes Discharge Plan Discharge Items Patient Disposition: Home - Self-Care Reason For Visit: CERVICALGIA Discharge Diagnosis: CERVICAL RADICULOPATHY Condition: Good Discharge Goals: Decrease discomfort Activity: Resume your previous activity Non-emergency contact: Primary Care Provider Call non-emergency contact if: your symptoms worsen Follow-up/Referrals: Antonio Cristobal MD [Primary Care Provider] - 11/01/18 1:05 pm Diet: Carb Count or DM1, Low Fat and Low Sodium (2gm) Addtl Provider Instructions: You were admitted for cervical neck pain. MRI cervical spine shows level 2 disc disease most impressive at C5-6, with compromise of canal with small moderate neural foraminal disease. MEDICATION CHANGES 1. Medrol dose pack: Start from 10/30/18- Next 4 mg tablet at 1800, 2100 10/31/18-1 tablet four times a day 11/01/18- 1 tablet three times a day 11/02/18- 1 tablet two times a day 11/03/18- 1 tablet one time a day Prescriptions: New methylprednisolone [Medrol] 4 mg tablet 4 mg PO UD Qty: 14 RF: 0 Continued losartan 50 mg Tablet 50 mg PO DAILY RF: 0 lovastatin 40 mg Tablet 40 mg PO DAILY RF: 0 Novolog U-100 Insulin aspart 100 unit/mL Solution 1 pump SUBCUT CONTINOUS RF: 0 dextroamphetamine-amphetamine [Adderall] 20 mg Tablet 20 mg PO DAILY PRN (Reason: HIGH STRESS TIMES) RF: 0 fluoxetine [Prozac] 20 mg Capsule 20 mg PO DAILY RF: 0 Stand-Alone Forms: [facility] Discharge Orders: Discharge Order (Routine); Ordered 10/30/18 Ordered By: Alexa Enamorado Admission Data Admit Date/Time: 10/28/18 01:14 Attending Provider: Alexa Enamorado Admit Provider: Shan Oreilly Primary Care Provider: Antonio Cristobal Other Providers: Shan Oreilly ; Asa Arciniega Service: Surgical Services Other Pending Studies at Discharge: No
[2018-10-30] MEDS ORDERED: methylPREDNISolone 4 MG TAB PO SCH (21:00)
[2018-10-31] MEDS ORDERED: methylPREDNISolone 4 MG TAB PO SCH (07:00)
[2018-11-01] MEDS ORDERED: methylPREDNISolone 4 MG TAB PO SCH (07:00)
[2018-11-02] MEDS ORDERED: methylPREDNISolone 4 MG TAB PO SCH (07:00)
[2018-11-03] MEDS ORDERED: methylPREDNISolone 4 MG TAB PO SCH (07:00)
== END 2018-10-30 15:40 | disposition home or self-care (01) ==
LOC: 3W 19:11 → ED 19:11 → 3W 10-28 01:37

== ENCOUNTER 2024-03-01 19:42 | Observation (INO) ==
[2024-03-01] MEDS: SODIUM CHLORIDE 0.9% 1,000 ML IV STA (20:10)
[2024-03-01] MEDS: MoRPHine SULFATE 4 MG/ML 1 ML CARP\\VIAL IV STA (20:11)
[2024-03-01] MEDS: ONDANSETRON INJ 2 MG/ML 2 ML VIAL IV STA (20:11)
[2024-03-01 20:29] LABS: Basophils # (auto) 0.04 K/uL (0.00-0.20); Basophils % (auto) 0.3 %; Eosinophils # (auto) 0.07 K/uL (0.00-0.50); Eosinophils % (auto) 0.6 %; Hematocrit (blood only) 36.4 % (37.0-47.0); Hemoglobin 12.4 g/dl (12.0-16.0); Immature Granulocytes # (auto) 0.03 K/uL (0.01-0.20); Immature Granulocytes % (auto) 0.3 %; Lymphocytes # (auto) 2.16 K/uL (1.20-3.40); Lymphocytes % (auto) 18.1 %; Mean Corpuscular Hemoglobin 31.8 pg (25.0-34.0); Mean Corpuscular Hgb Conc 34.1 g/dL (32.0-36.0); Mean Corpuscular Volume 93.3 fL (80.0-100.0); Mean Platelet Volume 10.3 fL (9.4-12.4); Monocytes # (auto) 0.72 K/uL (0.11-0.59); Neutrophils % (auto) 74.7 %; Platelet Count 307 K/uL (130-400); RDW Coefficient of Variation 11.7 % (11.5-14.5); RDW Standard Deviation 39.6 fL (36.4-46.3); White Blood Count 11.92 K/ul (4.8-10.8)
[2024-03-01 20:35] LABS: Appearance Urine Cloudy (Clear); Bacteria Urine Automated 1+ (None Seen); Bilirubin Urine Negative (Negative); Blood Urine Negative (Negative); Cast Urine Automated 0-2 /lpf (0-2); Color Urine Yellow; Epithelial Cell Urine Auto 0-2 /hpf (0-2); Glucose Urine UA Negative (Negative); Ketones Urine 1+ (Negative); Leukocyte Esterase Urine 2+ (Negative); Nitrite Urine Negative (Negative); Protein Urine 2+ (Negative); RBC Urine Automated 0-2 /hpf (0-2); Specific Gravity Urine 1.018 (1.000-1.030); Urobilinogen Urine Negative (Negative); WBC Urine Automated 21-50 /hpf (0-5); pH Urine 8.5 (4.5-7.5)
[2024-03-01 20:51] LABS: Alanine Aminotransferase 15 U/L (7-52); Albumin Globulin Ratio 1.8 (0.9-2); Albumin Level 4.4 gm/dl (3.4-5.0); Alkaline Phosphatase 63 U/L (34-104); Anion Gap 11 (3-11); Aspartate Aminotransferase 21 U/L (13-39); BUN Creatinine Ratio 15.7 (10-20); Bilirubin,Total 0.4 mg/dl (0.2-1.0); Blood Urea Nitrogen 24 mg/dl (6-23); Calcium 10.1 mg/dl (8.6-10.3); Carbon Dioxide 23 mmol/L (21-32); Chloride 104 mmol/L (98-107); Est GFR (African American) 43.3 ml/min; Est GFR (Non-African American) 37.4 ml/min; Globulin 2.5 gm/dl (2.5-4.0); Glucose 173 mg/dl (70-99(Fasting)); Lipase 36 U/L (11-82); Potassium 4.2 mmol/L (3.5-5.1); Sodium 138 mmol/L (136-145); Total Protein 6.9 gm/dl (6.0-8.3)
[2024-03-01] MEDS: OPTIRAY 320 100ml IV ONE (21:14)
[2024-03-01] MEDS: HYDROmorphone INJ 0.5 MG/0.5 ML SYR IV STA (22:04)
--- NOTE | 2024-03-01 23:17 | CT Scan Report ---
Exam(s): CT ABDOMEN + PELVIS With Contrast IV Amt: 92 cc opit 320 EXAM: CT Abdomen and Pelvis With Intravenous Contrast CLINICAL HISTORY: Reason for exam: LLQ/lower abd pain. TECHNIQUE: Axial computed tomography images of the abdomen and pelvis with intravenous contrast. CTDI is 23.48 mGy and DLP is 1117.97 mGy-cm. Automated exposure control was utilized for the study. A dose lowering technique was utilized adhering to the principles of ALARA. CONTRAST: Patient received 92 cc opit 320 of IV contrast COMPARISON: No relevant prior studies available. FINDINGS: Lung bases: Unremarkable. No mass. No consolidation. ABDOMEN: Liver: Unremarkable. No mass. Gallbladder and bile ducts: Unremarkable. No calcified stones. No ductal dilation. Pancreas: Unremarkable. No mass. No ductal dilation. Spleen: Calcified splenic granulomata. Adrenals: Unremarkable. No mass. Kidneys and ureters: Unremarkable. No solid mass. No hydronephrosis. Stomach and bowel: Unremarkable. No mucosal thickening. No bowel obstruction. PELVIS: Appendix: Dilated, fluid-filled, inflamed appendix measuring 1.3 cm, consistent with uncomplicated acute appendicitis. Bladder: Unremarkable. No mass. Reproductive: Unremarkable as visualized. ABDOMEN and PELVIS: Intraperitoneal space: Unremarkable. No free air, significant free fluid, or abscess. Bones/joints: Disc degeneration L5-S1. No acute fracture. No dislocation. Soft tissues: Unremarkable. Vasculature: Atherosclerosis without aortic aneurysm. Lymph nodes: Unremarkable. No enlarged lymph nodes. IMPRESSION: Dilated, fluid-filled, inflamed appendix measuring 1.3 cm, consistent with uncomplicated acute appendicitis. No free air or abscess. Communications: Verify Receipt Electronically signed by: Iliana Mcclelland M.D. 03/01/24 23:16 PM
[2024-03-02] MEDS: HYDROmorphone INJ 0.5 MG/0.5 ML SYR IV STA (00:12)
--- NOTE | 2024-03-02 00:12 | Emergency Department Note ---
ED Provider Note History of Present Illness Chief Complaint: Abdominal Pain Stated Complaint: APPENDIX/ABD PAIN, NAUSEA Time Seen by Provider: 03/01/24 19:50 58-year-old female who presents to the emergency department with complaint of lower abdominal pain that is progressively worsening. The patient reports feeling ill for the past week. The patient started to noticed significant pain this afternoon around 3 PM. She reports that the pain is worsened with movement. She initially noticed the pain in the left lower quadrant, but the pain is now throughout the lower abdomen and right lower quadrant region. The patient reports nausea without vomiting. The patient thought that she was constipated, and took a laxative without relief. The patient has not noticed any recent bloody or mucus stools. She denies any prior history of GI disease. The patient has not had a prior colonoscopy. The patient rates her discomfort an 8 out of 10. Home Medications Medication Instructions Recorded Confirmed Type albuterol sulfate 90 mcg/actuation 2 puff inhalation Q4 PRN .COUGH, 03/01/24 03/01/24 History aerosol inhaler WHEEZING aspirin 81 mg tablet,delayed 81 mg PO QPM 03/01/24 03/01/24 History release dextroamphetamine-amphetamine ER 20 mg PO DAILY PRN .. 03/01/24 03/01/24 History 20 mg 24hr capsule,extend release fluoxetine 40 mg capsule 40 mg PO QPM 03/01/24 03/01/24 History insulin aspart U-100 100 unit/mL 0 unit subcut DIRECTED 03/01/24 03/01/24 History subcutaneous solution (Novolog U-100 Insulin aspart) losartan 50 mg tablet 50 mg PO QPM 03/01/24 03/01/24 History lovastatin 40 mg tablet 40 mg PO QPM 03/01/24 03/01/24 History multivitamin-ferrous 1 tab PO DAILY 03/01/24 03/01/24 History fumarate-folic acid 18 mg-400 mcg tablet (Centrum Complete) ondansetron HCl 4 mg tablet 4 mg PO Q8 PRN Nausea 03/01/24 03/01/24 History semaglutide 1 mg/dose (4 mg/3 mL) 1 mg subcut .QFRIDAY 03/01/24 03/01/24 History subcutaneous pen injector (Ozempic) Allergies Allergy/AdvReac Type Severity Reaction Status Date / Time CHAPARRO Inhibitors Allergy Intermediate cough Verified 03/01/24 23:34 Penicillins Allergy Intermediate rash Verified 03/01/24 23:34 Past Med/Surg History Problem List Acute appendicitis (Acute) COVID-19 (Acute) Neck muscle spasm (Acute) Intractable pain (Acute) Alcoholic intoxication (Acute) Encounter for medication refill (Acute) Encounter for medication refill (Acute) Medical History Cervical radiculopathy DM (diabetes mellitus), type 1 Surgical History Hx of eye surgery History of female sterilization History of carpal tunnel surgery Social History Smoking Status: Never smoker Second Hand Exposure: No; Do You Dip or Chew Tobacco: No; Hx Alcohol Use: Yes Hx Substance Use: No Preferred Language: Palauan Communication Ability: Effective Beliefs That Will Affect Care: None Current Living Situation: Spouse Feels Safe at Home: Yes Assistive Devices: None Physical Exam Vital Signs Vital Signs - 24 hr 03/01/24 19:44 Temperature 36.7 C Temperature Source Temporal Artery Scan Pulse Rate 89 Respiratory Rate 18 Respiratory Depth Normal Blood Pressure 130/79 Blood Pressure Mean 96 Pulse Oximetry 100 Oxygen Delivery Method Room Air Sepsis Recent Fever Within 48 Hours No Sepsis New/Unexplained Change in Mental Status No Sepsis Action Taken by Nursing No Action Required CONSTITUTIONAL: Healthy and well nourished. Patient appears in moderately severe discomfort. HEENT: No scleral icterus or conjunctival injection. Mucous membranes are dry. RESPIRATORY: Clear to auscultation bilaterally with no wheezing, crackles, rhonchi or stridor. CARDIOVASCULAR: Regular rate and rhythm with no murmurs, rubs or gallops. GASTROINTESTINAL: Bowel sounds present in all quadrants. Patient has notable lower abdominal tenderness to palpation with guarding. No upper abdominal tenderness to palpation. Positive McBurney's point tenderness. MUSCULOSKELETAL: Full range of motion of all joints without discomfort. INTEGUMENTARY: No rash or other significant dermatologic conditions noted. HEMATOLOGIC: No ecchymosis or petechiae. PSYCHIATRIC: Flat affect. NEUROLOGIC: No focal neurologic deficits noted. Course Course Patient history and physical exam were performed. Nurses notes are reviewed. Vital signs are reviewed. IV access was established, and labs are drawn. The patient was initially administered IV morphine and Zofran. Review of labs shows a mild leukocytosis with neutrophilic shift and no bandemia. CMP shows an elevated creatinine, however the patient does appear to have an elevated baseline when compared to prior labs. Glucose is elevated at 173. Urinalysis shows 2+ leukocyte esterase with 1+ urine bacteria, and negative hematuria or nitrites. Urine culture is pending. After returning from CT, there was a wait until radiologist reports were completed. The patient was administered additional IV Dilaudid for good pain control. CT with IV contrast of the abdomen and pelvis showed an an acute uncomplicated appendicitis. The case was further discussed with Dr. Fernandez, general surgeon on-call, who came to the emergency department for further evaluation. I ordered, and the patient was administered IV Zosyn. The patient did require an additional dose of IV Dilaudid and Zofran for persistent pain and nausea. Please see Dr. Fernandez's dictation for further surgical treatment and final disposition. Administered Medications Discontinued Medications Hydromorphone HCl (Hydromorphone Inj 0.5 Mg/0.5 Ml Syr) 0.5 mg IV NOW STA Stop: 03/01/24 22:01 Last Admin: 03/01/24 22:04 Dose: 0.5 mg Documented By: RADHA Hydromorphone HCl (Hydromorphone Inj 0.5 Mg/0.5 Ml Syr) 0.25 mg IV NOW STA Stop: 03/02/24 00:08 Last Admin: 03/02/24 00:12 Dose: 0.25 mg Documented By: RADHA Sodium Chloride (Nss) 1,000 mls @ 999 mls/hr IV .Q1H1M STA Stop: 03/01/24 21:01 Last Admin: 03/01/24 20:10 Dose: 999 mls/hr Documented By: RADHA Piperacillin Sod/Tazobactam Sod (Zosyn) 4.5 gm in 100 mls @ 200 mls/hr IV NOW ONE Stop: 03/02/24 00:07 Last Admin: 03/02/24 00:20 Dose: 200 mls/hr Documented By: RADHA Ioversol (Optiray 320 100ml) 92 ml IV ONCE ONE Stop: 03/01/24 21:15 Last Admin: 03/01/24 21:14 Dose: 92 ml Documented By: SUSY Morphine Sulfate (Morphine Sulfate 4 Mg/Ml 1 Ml Carp\Vial) 4 mg IV NOW STA Stop: 03/01/24 20:02 Last Admin: 03/01/24 20:11 Dose: 4 mg Documented By: RADHA Ondansetron HCl (Ondansetron Inj 2 Mg/Ml 2 Ml Vial) 4 mg IV NOW STA Stop: 03/01/24 20:02 Last Admin: 03/01/24 20:11 Dose: 4 mg Documented By: RADHA Ondansetron HCl (Ondansetron Inj 2 Mg/Ml 2 Ml Vial) 4 mg IV NOW STA Stop: 03/02/24 00:13 Last Admin: 03/02/24 00:19 Dose: 4 mg Documented By: RADHA Medical Decision Making Medical Records Attestation: I reviewed the patient's medical records. Home Medications was personally reviewed by me Laboratory Data Attestation: I reviewed the patient's lab results. 03/01/24 20:07 03/01/24 20:07 Lab Results 03/01/24 Range/Units 20:07 WBC 11.92 H (4.8-10.8) K/ul RBC 3.90 L (4.20-5.40) M/uL Hgb 12.4 (12.0-16.0) g/dl Hct 36.4 L (37.0-47.0) % MCV 93.3 (80.0-100.0) fL MCH 31.8 (25.0-34.0) pg MCHC 34.1 (32.0-36.0) g/dL RDW Std Deviation 39.6 (36.4-46.3) fL RDW Coeff of Emma 11.7 (11.5-14.5) % Plt Count 307 (130-400) K/uL MPV 10.3 (9.4-12.4) fL Immature Gran % (Auto) 0.3 % Neut % (Auto) 74.7 % Lymph % (Auto) 18.1 % [place] % (Auto) 6.0 % Eos % (Auto) 0.6 % Baso % (Auto) 0.3 % Neut # (Auto) 8.90 H (1.40-6.50) K/uL Lymph # (Auto) 2.16 (1.20-3.40) K/uL [place] # (Auto) 0.72 H (0.11-0.59) K/uL Eos # (Auto) 0.07 (0.00-0.50) K/uL Baso # (Auto) 0.04 (0.00-0.20) K/uL Immature Gran # (Auto) 0.03 (0.01-0.20) K/uL Sodium 138 (136-145) mmol/L Potassium 4.2 (3.5-5.1) mmol/L Chloride 104 (98-107) mmol/L Carbon Dioxide 23 (21-32) mmol/L Anion Gap 11 (3-11) BUN 24 H (6-23) mg/dl Creatinine 1.53 H (0.6-1.2) mg/dl Est Cr Clr Drug Dosing Not Reportable Est GFR ( Amer) 43.3 ml/min Est GFR (Non-Af Amer) 37.4 ml/min BUN/Creatinine Ratio 15.7 (10-20) Glucose 173 H (70-99(Fasting)) mg/dl Calcium 10.1 (8.6-10.3) mg/dl Total Bilirubin 0.4 (0.2-1.0) mg/dl AST 21 (13-39) U/L ALT 15 (7-52) U/L Alkaline Phosphatase 63 (34-104) U/L Total Protein 6.9 (6.0-8.3) gm/dl Albumin 4.4 (3.4-5.0) gm/dl Globulin 2.5 (2.5-4.0) gm/dl Albumin/Globulin Ratio 1.8 (0.9-2) Lipase 36 (11-82) U/L Urine Color Yellow Urine Appearance Cloudy A (Clear) Urine pH 8.5 H (4.5-7.5) Ur Specific [place] 1.018 (1.000-1.030) Urine Protein 2+ H (Negative) Urine Glucose (UA) Negative (Negative) Urine Ketones 1+ H (Negative) Urine Blood Negative (Negative) Urine Nitrite Negative (Negative) Urine Bilirubin Negative (Negative) Urine Urobilinogen Negative (Negative) Ur Leukocyte Esterase 2+ H (Negative) Urine WBC (Auto) 21-50 H (0-5) /hpf Urine RBC (Auto) 0-2 (0-2) /hpf U Hyaline Cast (Auto) 0-2 (0-2) /lpf U Epithel Cells (Auto) 0-2 (0-2) /hpf Urine Bacteria (Auto) 1+ H (None Seen) Imaging Data Attestation: I personally reviewed and interpreted this imaging study as follows: My Impression: My interpretation of his CT with IV contrast of the abdomen and pelvis shows an uncomplicated acute appendicitis without abscess formation or perforation. No diverticulitis or bowel obstruction noted. Radiologist report was also reviewed with concurrence. Radiologist's Impression: Abdomen/Pelvis CT 03/01/24 20:02 CR Exam(s): CT ABDOMEN + PELVIS With Contrast IV Amt: 92 cc opit 320 EXAM: CT Abdomen and Pelvis With Intravenous Contrast CLINICAL HISTORY: Reason for exam: LLQ/lower abd pain. TECHNIQUE: Axial computed tomography images of the abdomen and pelvis with intravenous contrast. CTDI is 23.48 mGy and DLP is 1117.97 mGy-cm. Automated exposure control was utilized for the study. A dose lowering technique was utilized adhering to the principles of ALARA. CONTRAST: Patient received 92 cc opit 320 of IV contrast COMPARISON: No relevant prior studies available. FINDINGS: Lung bases: Unremarkable. No mass. No consolidation. ABDOMEN: Liver: Unremarkable. No mass. Gallbladder and bile ducts: Unremarkable. No calcified stones. No ductal dilation. Pancreas: Unremarkable. No mass. No ductal dilation. Spleen: Calcified splenic granulomata. Adrenals: Unremarkable. No mass. Kidneys and ureters: Unremarkable. No solid mass. No hydronephrosis. Stomach and bowel: Unremarkable. No mucosal thickening. No bowel obstruction. PELVIS: Appendix: Dilated, fluid-filled, inflamed appendix measuring 1.3 cm, consistent with uncomplicated acute appendicitis. Bladder: Unremarkable. No mass. Reproductive: Unremarkable as visualized. ABDOMEN and PELVIS: Intraperitoneal space: Unremarkable. No free air, significant free fluid, or abscess. Bones/joints: Disc degeneration L5-S1. No acute fracture. No dislocation. Soft tissues: Unremarkable. Vasculature: Atherosclerosis without aortic aneurysm. Lymph nodes: Unremarkable. No enlarged lymph nodes. IMPRESSION: Dilated, fluid-filled, inflamed appendix measuring 1.3 cm, consistent with uncomplicated acute appendicitis. No free air or abscess. Communications: Verify Receipt Electronically signed by: Iliana Mcclelland M.D. 03/01/24 23:16 PM MDM Narrative See ED Course section for further details of today's visit. The patient presents for evaluation of lower abdominal pain since this afternoon. The patient did require several rounds of analgesics and antiemetics for symptomatic relief. CT imaging does show evidence for an acute uncomplicated appendicitis. No diverticulitis, bowel obstruction or abdominal free air is noted. Laboratory studies were reviewed, showing a mild leukocytosis. Urinalysis is not convincing for UTI, however urine culture was ordered. Laboratory studies are also not suggestive of pancreatitis, cholecystitis or hepatitis. The patient was examined by Dr. Fernandez, general surgeon on-call, for a laparoscopic appendectomy. Impression Acute appendicitis Discharge Plan Visit Data Chief Complaint: Abdominal Pain Stated Complaint: APPENDIX/ABD PAIN, NAUSEA ED Provider: Charmaine Enamorado ED Midlevel Provider: Jere Holden Discharge Problem: Acute appendicitis Forms Stand Alone Forms: My [facility] Prescriptions Prescriptions: No Action losartan 50 mg tablet 50 mg PO QPM fluoxetine 40 mg capsule 40 mg PO QPM ondansetron HCl 4 mg tablet 4 mg PO Q8 PRN (Reason: Nausea) lovastatin 40 mg tablet 40 mg PO QPM aspirin [Aspir-Low] 81 mg Tablet,Delayed Release (Dr/Ec) 81 mg PO QPM dextroamphetamine-amphetamine 20 mg capsule,extended release 24hr 20 mg PO DAILY PRN (Reason: ..) insulin aspart U-100 [Novolog U-100 Insulin aspart] 100 unit/mL solution 0 unit subcut DIRECTED Rx Instructions: VIA PUMP albuterol sulfate 90 mcg/actuation HFA aerosol inhaler 2 puff INHALATION Q4 PRN (Reason: .COUGH, WHEEZING) Centrum Complete 18-400 mg-mcg Tablet 1 tab PO DAILY Ozempic 1 mg/dose (4 mg/3 mL) pen injector 1 mg SUBCUT .QFRIDAY Referrals Referrals: Antonio Cristobal MD [Primary Care Provider] - Discharge Problem: Acute appendicitis Qualifiers: Acute appendicitis type: with localized peritonitis Appendicitis gangrene presence: unspecified whether gangrene present Appendicitis perforation presence: without perforation Appendicitis abscess presence: without abscess Q ualified Code(s): K35.30 - Acute appendicitis with localized peritonitis, without perforation or gangrene
[2024-03-02] MEDS: ONDANSETRON INJ 2 MG/ML 2 ML VIAL IV STA (00:19)
[2024-03-02] MEDS: PIPERACILLIN/TAZOBACTAM 4.5 GM/100 ML BAG IV ONE (00:20)
--- NOTE | 2024-03-02 00:40 | History & Physical Report ---
Date of Service March 02, 2024 Assessment & Plan (1) Acute appendicitis: Plan 58-year-old woman with acute appendicitis. I discussed the risk benefits of a laparoscopic appendectomy with her. All her questions were answered and she is agreeable to proceed. Consent has been obtained. Will take her to the operating room at the earliest convenience. History of Present Illness Primary Care Provider: Antonio Cristobal MD 58-year-old woman presents with a 1 week history of feeling ill and a 1 day history of severe right-sided abdominal pain associated with nausea and vomiting. This started at 3 PM today. She denies fevers or chills. She denies changes in bowel habits. CT scan demonstrates acute appendicitis. Allergies Allergy/AdvReac Type Severity Reaction Status Date / Time CHAPARRO Inhibitors Allergy Intermediate cough Verified 03/01/24 23:34 Penicillins Allergy Intermediate rash Verified 03/01/24 23:34 Home Medications Medication Instructions Recorded Confirmed Type albuterol sulfate 90 mcg/actuation 2 puff inhalation Q4 PRN .COUGH, 03/01/24 03/01/24 History aerosol inhaler WHEEZING aspirin 81 mg tablet,delayed 81 mg PO QPM 03/01/24 03/01/24 History release dextroamphetamine-amphetamine ER 20 mg PO DAILY PRN .. 03/01/24 03/01/24 History 20 mg 24hr capsule,extend release fluoxetine 40 mg capsule 40 mg PO QPM 03/01/24 03/01/24 History insulin aspart U-100 100 unit/mL 0 unit subcut DIRECTED 03/01/24 03/01/24 History subcutaneous solution (Novolog U-100 Insulin aspart) losartan 50 mg tablet 50 mg PO QPM 03/01/24 03/01/24 History lovastatin 40 mg tablet 40 mg PO QPM 03/01/24 03/01/24 History multivitamin-ferrous 1 tab PO DAILY 03/01/24 03/01/24 History fumarate-folic acid 18 mg-400 mcg tablet (Centrum Complete) ondansetron HCl 4 mg tablet 4 mg PO Q8 PRN Nausea 03/01/24 03/01/24 History semaglutide 1 mg/dose (4 mg/3 mL) 1 mg subcut .QFRIDAY 03/01/24 03/01/24 History subcutaneous pen injector (Ozempic) Past Med/Surg History Problem List Acute appendicitis (Acute) COVID-19 (Acute) Neck muscle spasm (Acute) Intractable pain (Acute) Alcoholic intoxication (Acute) Encounter for medication refill (Acute) Encounter for medication refill (Acute) Medical History Cervical radiculopathy DM (diabetes mellitus), type 1 Surgical History Hx of eye surgery History of female sterilization History of carpal tunnel surgery Social History Smoking Status: Never smoker Second Hand Exposure: No; Do You Dip or Chew Tobacco: No; Hx Alcohol Use: Yes Hx Substance Use: No Preferred Language: Italian Communication Ability: Effective Beliefs That Will Affect Care: None Current Living Situation: Spouse Feels Safe at Home: Yes Assistive Devices: None Review of Systems Review of Systems: All systems reviewed & are unremarkable except as noted in HPI & below Physical Exam Constitutional: WD/WN, vitals as above Eyes: PERRL, conjunctivae normal, anicteric sclerae Neck: trachea midline, no thyromegaly Respiratory: normal respiratory effort; no respiratory distress and no labored breathing Cardiovascular: Rate/Rhythm: regular rate and regular rhythm Gastrointestinal (Abdomen): Inspection/Auscultation: abdomen normal to inspection; abdomen not distended Percussion/Palpation: + abdomen tender and abdomen soft; no guarding and abdomen not rigid Skin: no rashes, warm and dry Psychiatric: A+Ox3, euthymic affect Results & Data Results & Data Vital Signs (Past 12 Hours) Vital Signs Temp Pulse Resp BP Pulse Ox O2 Del Method 03/01/24 19:44 36.7 C 89 18 130/79 100 Room Air Laboratory Results 03/01/24 Range/Units 20:07 WBC 11.92 H (4.8-10.8) K/ul RBC 3.90 L (4.20-5.40) M/uL Hgb 12.4 (12.0-16.0) g/dl Hct 36.4 L (37.0-47.0) % MCV 93.3 (80.0-100.0) fL MCH 31.8 (25.0-34.0) pg MCHC 34.1 (32.0-36.0) g/dL RDW Std Deviation 39.6 (36.4-46.3) fL RDW Coeff of Emma 11.7 (11.5-14.5) % Plt Count 307 (130-400) K/uL MPV 10.3 (9.4-12.4) fL Immature Gran % (Auto) 0.3 % Neut % (Auto) 74.7 % Lymph % (Auto) 18.1 % [place]ball % (Auto) 6.0 % Eos % (Auto) 0.6 % Baso % (Auto) 0.3 % Neut # (Auto) 8.90 H (1.40-6.50) K/uL Lymph # (Auto) 2.16 (1.20-3.40) K/uL Kimball # (Auto) 0.72 H (0.11-0.59) K/uL Eos # (Auto) 0.07 (0.00-0.50) K/uL Baso # (Auto) 0.04 (0.00-0.20) K/uL Immature Gran # (Auto) 0.03 (0.01-0.20) K/uL Sodium 138 (136-145) mmol/L Potassium 4.2 (3.5-5.1) mmol/L Chloride 104 (98-107) mmol/L Carbon Dioxide 23 (21-32) mmol/L Anion Gap 11 (3-11) BUN 24 H (6-23) mg/dl Creatinine 1.53 H (0.6-1.2) mg/dl Est Cr Clr Drug Dosing Not Reportable Est GFR ( Amer) 43.3 ml/min Est GFR (Non-Af Amer) 37.4 ml/min BUN/Creatinine Ratio 15.7 (10-20) Glucose 173 H (70-99(Fasting)) mg/dl Calcium 10.1 (8.6-10.3) mg/dl Total Bilirubin 0.4 (0.2-1.0) mg/dl AST 21 (13-39) U/L ALT 15 (7-52) U/L Alkaline Phosphatase 63 (34-104) U/L Total Protein 6.9 (6.0-8.3) gm/dl Albumin 4.4 (3.4-5.0) gm/dl Globulin 2.5 (2.5-4.0) gm/dl Albumin/Globulin Ratio 1.8 (0.9-2) Lipase 36 (11-82) U/L Urine Color Yellow Urine Appearance Cloudy A (Clear) Urine pH 8.5 H (4.5-7.5) Ur Specific [place] 1.018 (1.000-1.030) Urine Protein 2+ H (Negative) Urine Glucose (UA) Negative (Negative) Urine Ketones 1+ H (Negative) Urine Blood Negative (Negative) Urine Nitrite Negative (Negative) Urine Bilirubin Negative (Negative) Urine Urobilinogen Negative (Negative) Ur Leukocyte Esterase 2+ H (Negative) Urine WBC (Auto) 21-50 H (0-5) /hpf Urine RBC (Auto) 0-2 (0-2) /hpf U Hyaline Cast (Auto) 0-2 (0-2) /lpf U Epithel Cells (Auto) 0-2 (0-2) /hpf Urine Bacteria (Auto) 1+ H (None Seen) Diagnostic Findings ADDENDUM ADDENDUM: 03/01/24 23:21 Verify Receipt Verified receipt with [facility] Hansen in ER for Dr. Enamorado on 03/01 23:21 (-04:00) Electronically signed by: Iliana Mcclelland M.D. Electronically signed by: Iliana Mcclelland M.D. 03/01/24 23:16 PM ADDENDUM END Exam(s): CT ABDOMEN + PELVIS With Contrast IV Amt: 92 cc opit 320 EXAM: CT Abdomen and Pelvis With Intravenous Contrast CLINICAL HISTORY: Reason for exam: LLQ/lower abd pain. TECHNIQUE: Axial computed tomography images of the abdomen and pelvis with intravenous contrast. CTDI is 23.48 mGy and DLP is 1117.97 mGy-cm. Automated exposure control was utilized for the study. A dose lowering technique was utilized adhering to the principles of ALARA. CONTRAST: Patient received 92 cc opit 320 of IV contrast COMPARISON: No relevant prior studies available. FINDINGS: Lung bases: Unremarkable. No mass. No consolidation. ABDOMEN: Liver: Unremarkable. No mass. Gallbladder and bile ducts: Unremarkable. No calcified stones. No ductal dilation. Pancreas: Unremarkable. No mass. No ductal dilation. Spleen: Calcified splenic granulomata. Adrenals: Unremarkable. No mass. Kidneys and ureters: Unremarkable. No solid mass. No hydronephrosis. Stomach and bowel: Unremarkable. No mucosal thickening. No bowel obstruction. PELVIS: Appendix: Dilated, fluid-filled, inflamed appendix measuring 1.3 cm, consistent with uncomplicated acute appendicitis. Bladder: Unremarkable. No mass. Reproductive: Unremarkable as visualized. ABDOMEN and PELVIS: Intraperitoneal space: Unremarkable. No free air, significant free fluid, or abscess. Bones/joints: Disc degeneration L5-S1. No acute fracture. No dislocation. Soft tissues: Unremarkable. Vasculature: Atherosclerosis without aortic aneurysm. Lymph nodes: Unremarkable. No enlarged lymph nodes. IMPRESSION: Dilated, fluid-filled, inflamed appendix measuring 1.3 cm, consistent with uncomplicated acute appendicitis. No free air or abscess. Communications: Verify Receipt Electronically signed by: Iliana Mcclelland M.D. 03/01/24 23:16 PM (1) Acute appendicitis Acute appendicitis type: with localized peritonitis Appendicitis abscess presence: without abscess Appendicitis gangrene presence: unspecified whether gangrene present Appendicitis perforation presence: without perforation Qualified Code(s): K35.30 - Acute appendicitis with localized peritonitis, without perforation or gangrene
[2024-03-02] MEDS ORDERED: LIDOCAINE 2% 2 ML VIAL/AMP(20MG/ML) INFIL ONE (01:18)
[2024-03-02] MEDS ORDERED: PROPOFOL IV EMULSION 10 MG/ML 20 ML VIAL IV ONE (01:18)
[2024-03-02] MEDS ORDERED: ROCURONIUM BROMIDE 10 MG/ML 5 ML VIAL IV ONE (01:18)
[2024-03-02] MEDS ORDERED: MIDAZOLAM HCL 1 MG/ML 2ML VIAL ONE (01:19)
[2024-03-02] MEDS ORDERED: fentaNYL citrate PF 100 MCG/2 ML VIAL ONE (01:19)
[2024-03-02] MEDS ORDERED: PROMETHAZINE HCL 6.25 MG in SODIUM CHLORIDE 0.9% 50 ML IV PRN (01:47)
[2024-03-02] MEDS ORDERED: ePHEDrine sulfate 50 MG/ML AMP IV PRN (01:47)
[2024-03-02] MEDS ORDERED: ONDANSETRON INJ 2 MG/ML 2 ML VIAL IV PRN (01:47)
[2024-03-02] MEDS ORDERED: ATROPINE SULFATE 0.1 MG/ML 10ML SYR IV PRN (01:47)
[2024-03-02] MEDS ORDERED: fentaNYL citrate PF 100 MCG/2 ML VIAL IV PRN (01:47)
--- NOTE | 2024-03-02 01:47 | Anesthesiology Consultation ---
Date of Service March 02, 2024 Assessment & Plan Chart Review Chart Review: Acceptable Risk for Surgery and Patient NOT seen in Pre Admission Testing Consults Requested none ASA [id number] Proposed Anesthesia Anesthesia Type: General History Surgery Operation Date: 03/02/24 01:30 Proposed Procedures p Laparoscopic Appendectomy - Slick Fernandez MD Height/Weight Height: 5 ft Allergies Allergy/AdvReac Type Severity Reaction Status Date / Time CHAPARRO Inhibitors Allergy Intermediate cough Verified 03/01/24 23:34 Penicillins Allergy Intermediate rash Verified 03/01/24 23:34 Medications Home Medications Medication Instructions Recorded Confirmed Last Taken albuterol sulfate 90 mcg/actuation 2 puff inhalation Q4 PRN .COUGH, 03/01/24 03/01/24 Unknown aerosol inhaler WHEEZING aspirin 81 mg tablet,delayed 81 mg PO QPM 03/01/24 03/01/24 Unknown release dextroamphetamine-amphetamine ER 20 mg PO DAILY PRN .. 03/01/24 03/01/24 Unknown 20 mg 24hr capsule,extend release fluoxetine 40 mg capsule 40 mg PO QPM 03/01/24 03/01/24 Unknown insulin aspart U-100 100 unit/mL 0 unit subcut DIRECTED 03/01/24 03/01/24 Unknown subcutaneous solution (Novolog U-100 Insulin aspart) losartan 50 mg tablet 50 mg PO QPM 03/01/24 03/01/24 Unknown lovastatin 40 mg tablet 40 mg PO QPM 03/01/24 03/01/24 Unknown multivitamin-ferrous 1 tab PO DAILY 03/01/24 03/01/24 Unknown fumarate-folic acid 18 mg-400 mcg tablet (Centrum Complete) ondansetron HCl 4 mg tablet 4 mg PO Q8 PRN Nausea 03/01/24 03/01/24 Unknown semaglutide 1 mg/dose (4 mg/3 mL) 1 mg subcut .QFRIDAY 03/01/24 03/01/24 02/24/24 subcutaneous pen injector (Ozempic) Past Medical History Medical History Cervical radiculopathy DM (diabetes mellitus), type 1 Past Surgical History Surgical History Hx of eye surgery History of female sterilization History of carpal tunnel surgery Social History Smoking Status: Never smoker Do You Dip or Chew Tobacco: No Hx Alcohol Use: Yes alcohol intake frequency: holidays/special occasions only Hx Substance Use: No Physical Exam Vital Signs Last Vital Signs Temp 36.7 C 03/01/24 19:44 Pulse 89 03/01/24 19:44 Resp 18 03/01/24 19:44 BP 130/79 03/01/24 19:44 Pulse Ox 100 03/01/24 19:44 O2 Del Method Nasal Cannula 03/02/24 01:18 O2 Flow Rate 3 03/02/24 01:18 Testing Laboratory Results 03/01/24 20:07 03/01/24 20:07 Urine Color Yellow 03/01/24 20:07 Urine Appearance Cloudy (Clear) A 03/01/24 20:07 Urine pH 8.5 (4.5-7.5) H 03/01/24 20:07 Ur Specific [place] 1.018 (1.000-1.030) 03/01/24 20:07 Urine Protein 2+ (Negative) H 03/01/24 20:07 Urine Glucose (UA) Negative (Negative) 03/01/24 20:07 Urine Ketones 1+ (Negative) H 03/01/24 20:07 Urine Nitrite Negative (Negative) 03/01/24 20:07 Ur Leukocyte Esterase 2+ (Negative) H 03/01/24 20:07 Urine WBC (Auto) 21-50 /hpf (0-5) H 03/01/24 20:07 Urine RBC (Auto) 0-2 /hpf (0-2) 03/01/24 20:07 U Hyaline Cast (Auto) 0-2 /lpf (0-2) 03/01/24 20:07 U Epithel Cells (Auto) 0-2 /hpf (0-2) 03/01/24 20:07 Urine Bacteria (Auto) 1+ (None Seen) H 03/01/24 20:07
[2024-03-02] MEDS ORDERED: KETOROLAC 30 MG/ML VIAL ONE (02:31)
[2024-03-02] MEDS ORDERED: ONDANSETRON INJ 2 MG/ML 2 ML VIAL ONE (02:31)
[2024-03-02] MEDS ORDERED: SUGAMMADEX SODIUM 200 MG/2 ML VIAL IV ONE (02:35)
[2024-03-02] MEDS: BUPIVACAINE/EPINEPHRINE 0.5% MPF 1:200,000 30 ML VIAL ONE (02:43)
--- NOTE | 2024-03-02 02:49 | Operative Report ---
Post Operative Report Pre & Post Diagnosis Operation Date: 03/02/24 01:30 Pre-Op Diagnosis: Acute appendicitis Post-Op Diagnosis: Acute appendicitis I identified the patient and participated in the time-out.: Yes Procedure Operation Date: 03/02/24 01:30 Actual Procedures p Laparoscopic Appendectomy(Not Applicable) - Slick Fernandez MD Surgeon Slick Fernandez MD Fermentation Scientist None Estimated Blood Loss 5 Findings Consistent with Post-Op Diagnosis Specimens appendix Drains none Anesthesia Type General Complications no immediate complications Description of Procedure the patient was taken to the operating room, and placed supine on the operating table. A timeout was performed, perioperative antibiotics were administered, SCD boots were placed. After adequate anesthesia and analgesia was obtained, the abdomen was prepped and draped in the normal sterile fashion. A 1 cm incision was made in the supraumbilical region and carried down to the level of the fascia. A trach hook was used to grasp the fascia and elevated and a varies needle was used to enter the abdominal cavity. The abdomen was insufflated to a pressure of 15 mmHg, and a 5 mm trocar was placed in this location. A 5 mm 30 degree laparoscope was placed into the abdominal cavity, and the abdomen was surveyed. The patient was placed in Trendelenburg and slightly to the left. One 5 mm trocar was placed in the right upper quadrant, and one 12 mm trocar was placed in the left lower quadrant under direct visualization. The right colon was identified and traced down to the cecum. The appendix was identified and elevated anteriorly and medially. A window was created at the base of the appendix with a [place] dissector. The Endo PATRICIA stapler was used to transect the mesoappendix. We were then able to elevate the appendix and transect the appendix at its base with the Endo PATRICIA stapler. The appendix was placed in an Endo Catch bag, and removed via the left lower quadrant port site. Attention was turned to hemostasis, which was excellent. The abdomen was copiously irrigated and suctioned free, and again hemostasis was found to be excellent. All trochars removed under direct visualization. The abdomen was de sufflated. The fascia in the 12 mm port site was closed with a 0 Vicryl suture. The skin was closed with a running 4-0 Monocryl subcuticular stitch. Dermabond was applied. The patient tolerated the procedure without complication, and was transferred in stable condition to the PACU. All instrument, needle, and sponge counts were correct at the end of the case. I attest to the content of the Intraoperative Record and any orders documented therein. Any exceptions are noted below.
--- NOTE | 2024-03-02 03:25 | Anesthesiology Progress Note ---
Date of Service March 02, 2024 Anesthesia Post Procedure Vital Signs Vital Signs: Temp Pulse Pulse Resp BP BP Pulse Ox 03/02/24 03:20 36.2 C L 91 H 12 89/46 L 94 03/02/24 03:10 36.1 C L 92 H 10 L 89/54 L 95 03/02/24 03:00 36.1 C L 88 10 L 116/58 L 93 03/02/24 01:18 03/01/24 19:44 36.7 C 89 18 130/79 100 O2 Del Method O2 Flow Rate 03/02/24 03:20 Oxymask 4 03/02/24 03:10 Oxymask 4 03/02/24 03:00 Room Air 03/02/24 01:18 Nasal Cannula 3 03/01/24 19:44 Room Air Transfer of Care Handoff Completed per policy Notes Mental Status: alert / awake / arousable Patient Amnestic to Procedure: Yes Nausea / Vomiting: adequately controlled Pain: adequately controlled Airway Patency, RR, SpO2: stable & adequate BP & HR: stable & adequate Hydration State: stable & adequate Anesthetic Complications: no major complications apparent
[2024-03-02] MEDS: SODIUM CHLORIDE 0.9% 500 ML IV ONE (04:40)
[2024-03-02] MEDS ORDERED: PROMETHAZINE 12.5 MG/50.5 ML BAG IV PRN (04:42)
[2024-03-02] MEDS: SODIUM CHLORIDE 0.9% 1,000 ML IV SCH ×2 (04:46→06:28)
[2024-03-02] MEDS: SODIUM CHLORIDE 0.9% 1,000 ML IV ONE (05:25)
[2024-03-02] MEDS ORDERED: PHARMACY GLYCEMIC MGMT CONSULT PRN (05:31)
[2024-03-02 05:53] LABS: Basophils # (auto) 0.02 K/uL (0.00-0.20); Basophils % (auto) 0.1 %; Hematocrit (blood only) 29.8 % (37.0-47.0); Hemoglobin 9.5 g/dl (12.0-16.0); Immature Granulocytes # (auto) 0.06 K/uL (0.01-0.20); Immature Granulocytes % (auto) 0.4 %; Lymphocytes # (auto) 0.37 K/uL (1.20-3.40); Lymphocytes % (auto) 2.6 %; Mean Corpuscular Hemoglobin 31.1 pg (25.0-34.0); Mean Corpuscular Hgb Conc 31.9 g/dL (32.0-36.0); Mean Corpuscular Volume 97.7 fL (80.0-100.0); Mean Platelet Volume 10.4 fL (9.4-12.4); Monocytes # (auto) 0.58 K/uL (0.11-0.59); Monocytes % (auto) 4.1 %; Neutrophils # (auto) 13.21 K/uL (1.40-6.50); Neutrophils % (auto) 92.8 %; Platelet Count 222 K/uL (130-400); RDW Coefficient of Variation 11.9 % (11.5-14.5); RDW Standard Deviation 42.8 fL (36.4-46.3); Red Blood Count 3.05 M/uL (4.20-5.40); White Blood Count 14.24 K/ul (4.8-10.8)
[2024-03-02] MEDS ORDERED: Patient's HEIGHT &/or WEIGHT Needed SCH (06:00)
[2024-03-02 06:01] LABS: Anion Gap 8 (3-11); BUN Creatinine Ratio 12.6 (10-20); Blood Urea Nitrogen 20 mg/dl (6-23); Carbon Dioxide 22 mmol/L (21-32); Chloride 105 mmol/L (98-107); Est GFR (African American) 41.3 ml/min; Est GFR (Non-African American) 35.7 ml/min; Glucose 397 mg/dl (70-99(Fasting)); Magnesium 1.3 mg/dl (1.7-2.4); Potassium 5.1 mmol/L (3.5-5.1); Sodium 135 mmol/L (136-145)
[2024-03-02] MEDS: INSULIN HUMAN REGULAR PER UNIT 5 UNITS in SYRINGE 4.95 ML IV STA (06:12)
[2024-03-02] MEDS: Patient's HEIGHT &/or WEIGHT Needed STA (06:30)
--- NOTE | 2024-03-02 06:36 | Hospitalist Consultation ---
Date of Consultation March 02, 2024 Assessment & Plan (1) Acute appendicitis: Final Assessment and Recommendations as follows : Postop hypotension Recent appendectomy for acute appendicitis hyperlipidemia, on statin Rx DM 1 on insulin pump, patient currently hyperglycemic after insulin pump discontinued during surgery, well-controlled as of recent hemoglobin A1c 6.2 last December 2023 ARF on CRI secondary to illness Medical telemetry transfer for closer monitoring (Dr. Fernandez agreeable to transfer.) IVF Appropriate to hold antihypertensives for now given hypotension Pharmacy glycemic control consultation, update hemoglobin A1c (Patient and adamantly refusing pharmacy involvement with sugar control due to "bad" experience from past admission as per account. Patient insists on managing her sugars with insulin pump despite being advised that her decision not being ideal given postop state. Patient and were educated about consequences of suboptimal inpatient DM control such as prolonged hospital stay, infection, etc.) DVT prophylaxis. Lovenox as per postop orders Thank you very much for this consultation. Dr. Lantigua will follow patient's progress. Text document was generated using [employer] voice recognition software. It may contain grammatical or spelling errors. Kindly contact undersigned for clarification of any documentation item in question. History of Present Illness Reason for Consultation: Medical management Requesting Physician: Dr. Fernandez Attending Physician: Slick Fernandez MD History of Present Illness PCP : Dr. Cristobal History obtained from patient, family, and records. Medical history significant for hypertension, hyperlipidemia, DM 1 on insulin pump, VAHE, CRI (baseline creatinine 1.3), ADHD, anxiety/mood disorder. Last confinement 2018 for cervical radiculopathy and hypertension. 1 week history of not feeling well. Yesterday, patient noted achy right-sided abdominal pain associated with nausea, vomiting. No fever, no chills, no chest pain, no SOB. Patient consulted ER for evaluation. CT abdomen pelvis at the ER showed Dilated, fluid-filled, inflamed appendix measuring 1.3 cm, consistent with uncomplicated acute appendicitis. No free air or abscess. Patient underwent emergent laparoscopic appendectomy. Low with SBP of 70s noted postop on the floor. Patient denies headache, chest pain, SOB, dizziness, abdominal pain. BSG noted to be 300s. 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 03/01/24 03/01/24 History 20 mg 24hr capsule,extend release fluoxetine 40 mg capsule 40 mg PO QPM 03/01/24 03/01/24 History insulin aspart U-100 100 unit/mL 0 unit subcut DIRECTED 03/01/24 03/01/24 History subcutaneous solution (Novolog U-100 Insulin aspart) losartan 50 mg tablet 50 mg PO QPM 03/01/24 03/01/24 History lovastatin 40 mg tablet 40 mg PO QPM 03/01/24 03/01/24 History multivitamin-ferrous 1 tab PO DAILY 03/01/24 03/01/24 History fumarate-folic acid 18 mg-400 mcg tablet (Centrum Complete) ondansetron HCl 4 mg tablet 4 mg PO Q8 PRN Nausea 03/01/24 03/01/24 History semaglutide 1 mg/dose (4 mg/3 mL) 1 mg subcut .QFRIDAY 03/01/24 03/01/24 History subcutaneous pen injector (Ozempic) oxycodone-acetaminophen 5 mg-325 1 tab PO Q6H PRN pain #10 tabs 03/02/24 Rx mg tablet Patient History Medical History Cervical radiculopathy DM (diabetes mellitus), type 1 Surgical History Hx of eye surgery History of female sterilization History of carpal tunnel surgery Social History Smoking Status: Never smoker Second Hand Exposure: No; Do You Dip or Chew Tobacco: No; Hx Alcohol Use: Yes Alcohol type: wine Hx Substance Use: No Preferred Language: Syriac Communication Ability: Effective 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 Beliefs That Will Affect Care: None Current Living Situation: Spouse Other Information That Helps Us Care for You: No Feels Safe at Home: Yes Safety Concerns: Feels Safe At This Time Assistive Devices: None Review of Systems Review of Systems: As per HPI, all other systems reviewed and negative Physical Exam Physical Exam: GENERAL: comfortable, obese, no respiratory distress SKIN: Pallor, warm HEENT: Pale palpebral conjunctivae, no ptosis, dry buccal mucosa NECK : Supple, no tenderness CHEST : CTA, no tenderness HEART : Tachycardic, no obvious murmurs ABDOMEN: Some distention, minimal RLQ tenderness EXTREMITIES : Minimal LE swelling, without tenderness, no other conspicuous deformities noted NEUROLOGIC : Coherent, no facial asymmetry, no other gross focality Results & Data Results & Data Vital Signs (Past 12 Hours) Vital Signs Temp Pulse Pulse Resp BP BP Pulse Ox 03/02/24 06:29 94/58 L 03/02/24 06:06 101 H 81/47 L 03/02/24 05:44 81/51 L 03/02/24 05:30 77/47 L 03/02/24 05:15 74/41 L 03/02/24 04:35 03/02/24 04:35 36.6 C 91 H 13 80/50 L 95 03/02/24 04:20 36.3 C L 95 H 16 93/51 L 95 03/02/24 04:10 94 H 16 103/63 95 03/02/24 04:00 36.3 C L 95 H 17 115/57 L 97 03/02/24 03:50 36.2 C L 95 H 18 97/52 L 98 03/02/24 03:40 36.2 C L 92 H 16 93/47 L 98 03/02/24 03:30 36.2 C L 93 H 12 87/49 L 96 03/02/24 03:20 36.2 C L 91 H 12 89/46 L 94 03/02/24 03:10 36.1 C L 92 H 10 L 89/54 L 95 03/02/24 03:00 36.1 C L 88 10 L 116/58 L 93 03/02/24 01:18 03/01/24 19:44 36.7 C 89 18 130/79 100 O2 Del Method O2 Flow Rate 03/02/24 06:29 03/02/24 06:06 03/02/24 05:44 03/02/24 05:30 03/02/24 05:15 03/02/24 04:35 Nasal Cannula 2 03/02/24 04:35 Nasal Cannula 03/02/24 04:20 Nasal Cannula 2 03/02/24 04:10 Nasal Cannula 2 03/02/24 04:00 Nasal Cannula 2 03/02/24 03:50 Nasal Cannula 2 03/02/24 03:40 Nasal Cannula 2 03/02/24 03:30 Nasal Cannula 2 03/02/24 03:20 Oxymask 4 03/02/24 03:10 Oxymask 4 03/02/24 03:00 Room Air 03/02/24 01:18 Nasal Cannula 3 03/01/24 19:44 Room Air Laboratory Results Laboratory Results WBC 14.24 K/ul (4.8-10.8) H 03/02/24 05:23 RBC 3.05 M/uL (4.20-5.40) L 03/02/24 05:23 Hgb 9.5 g/dl (12.0-16.0) L D 03/02/24 05:23 Hct 29.8 % (37.0-47.0) L 03/02/24 05:23 MCV 97.7 fL (80.0-100.0) 03/02/24 05:23 MCH 31.1 pg (25.0-34.0) 03/02/24 05:23 MCHC 31.9 g/dL (32.0-36.0) L 03/02/24 05:23 RDW Std Deviation 42.8 fL (36.4-46.3) 03/02/24 05:23 RDW Coeff of Emma 11.9 % (11.5-14.5) 03/02/24 05:23 Plt Count 222 K/uL (130-400) 03/02/24 05:23 MPV 10.4 fL (9.4-12.4) 03/02/24 05:23 Immature Gran % (Auto) 0.4 % 03/02/24 05:23 Neut % (Auto) 92.8 % 03/02/24 05:23 Lymph % (Auto) 2.6 % 03/02/24 05:23 [place] % (Auto) 4.1 % 03/02/24 05:23 Eos % (Auto) 0.0 % 03/02/24 05:23 Baso % (Auto) 0.1 % 03/02/24 05:23 Neut # (Auto) 13.21 K/uL (1.40-6.50) H 03/02/24 05:23 Lymph # (Auto) 0.37 K/uL (1.20-3.40) L 03/02/24 05:23 [place] # (Auto) 0.58 K/uL (0.11-0.59) 03/02/24 05:23 Eos # (Auto) 0.00 K/uL (0.00-0.50) 03/02/24 05:23 Baso # (Auto) 0.02 K/uL (0.00-0.20) 03/02/24 05:23 Immature Gran # (Auto) 0.06 K/uL (0.01-0.20) 03/02/24 05:23 Sodium 135 mmol/L (136-145) L 03/02/24 05:23 Potassium 5.1 mmol/L (3.5-5.1) D 03/02/24 05:23 Chloride 105 mmol/L (98-107) 03/02/24 05:23 Carbon Dioxide 22 mmol/L (21-32) 03/02/24 05:23 Anion Gap 8 (3-11) 03/02/24 05:23 BUN 20 mg/dl (6-23) 03/02/24 05:23 Creatinine 1.59 mg/dl (0.6-1.2) H 03/02/24 05:23 Est Cr Clr Drug Dosing Not Reportable 03/02/24 05:23 Est GFR ( Amer) 41.3 ml/min 03/02/24 05:23 Est GFR (Non-Af Amer) 35.7 ml/min 03/02/24 05:23 BUN/Creatinine Ratio 12.6 (10-20) 03/02/24 05:23 Glucose 397 mg/dl (70-99(Fasting)) H* 03/02/24 05:23 POC Glucose 398 mg/dl (70-99) H* 03/02/24 05:35 Lactate 0.7 mmol/L (0.4-2.0) 03/02/24 05:26 Calcium 8.0 mg/dl (8.6-10.3) L D 03/02/24 05:23 Magnesium 1.3 mg/dl (1.7-2.4) L 03/02/24 05:23 Total Bilirubin 0.4 mg/dl (0.2-1.0) 03/01/24 20:07 AST 21 U/L (13-39) 03/01/24 20:07 ALT 15 U/L (7-52) 03/01/24 20:07 Alkaline Phosphatase 63 U/L (34-104) 03/01/24 20:07 Total Protein 6.9 gm/dl (6.0-8.3) 03/01/24 20:07 Albumin 4.4 gm/dl (3.4-5.0) 03/01/24 20:07 Globulin 2.5 gm/dl (2.5-4.0) 03/01/24 20:07 Albumin/Globulin Ratio 1.8 (0.9-2) 03/01/24 20:07 Lipase 36 U/L (11-82) 03/01/24 20:07 Urine Color Yellow 03/01/24 20:07 Urine Appearance Cloudy (Clear) A 03/01/24 20:07 Urine pH 8.5 (4.5-7.5) H 03/01/24 20:07 Ur Specific [place] 1.018 (1.000-1.030) 03/01/24 20:07 Urine Protein 2+ (Negative) H 03/01/24 20:07 Urine Glucose (UA) Negative (Negative) 03/01/24 20:07 Urine Ketones 1+ (Negative) H 03/01/24 20:07 Urine Blood Negative (Negative) 03/01/24 20:07 Urine Nitrite Negative (Negative) 03/01/24 20:07 Urine Bilirubin Negative (Negative) 03/01/24 20:07 Urine Urobilinogen Negative (Negative) 03/01/24 20:07 Ur Leukocyte Esterase 2+ (Negative) H 03/01/24 20:07 Urine WBC (Auto) 21-50 /hpf (0-5) H 03/01/24 20:07 Urine RBC (Auto) 0-2 /hpf (0-2) 03/01/24 20:07 U Hyaline Cast (Auto) 0-2 /lpf (0-2) 03/01/24 20:07 U Epithel Cells (Auto) 0-2 /hpf (0-2) 03/01/24 20:07 Urine Bacteria (Auto) 1+ (None Seen) H 03/01/24 20:07 Impressions Abdomen/Pelvis CT 03/01/24 20:02 CR Exam(s): CT ABDOMEN + PELVIS With Contrast IV Amt: 92 cc opit 320 EXAM: CT Abdomen and Pelvis With Intravenous Contrast CLINICAL HISTORY: Reason for exam: LLQ/lower abd pain. TECHNIQUE: Axial computed tomography images of the abdomen and pelvis with intravenous contrast. CTDI is 23.48 mGy and DLP is 1117.97 mGy-cm. Automated exposure control was utilized for the study. A dose lowering technique was utilized adhering to the principles of ALARA. CONTRAST: Patient received 92 cc opit 320 of IV contrast COMPARISON: No relevant prior studies available. FINDINGS: Lung bases: Unremarkable. No mass. No consolidation. ABDOMEN: Liver: Unremarkable. No mass. Gallbladder and bile ducts: Unremarkable. No calcified stones. No ductal dilation. Pancreas: Unremarkable. No mass. No ductal dilation. Spleen: Calcified splenic granulomata. Adrenals: Unremarkable. No mass. Kidneys and ureters: Unremarkable. No solid mass. No hydronephrosis. Stomach and bowel: Unremarkable. No mucosal thickening. No bowel obstruction. PELVIS: Appendix: Dilated, fluid-filled, inflamed appendix measuring 1.3 cm, consistent with uncomplicated acute appendicitis. Bladder: Unremarkable. No mass. Reproductive: Unremarkable as visualized. ABDOMEN and PELVIS: Intraperitoneal space: Unremarkable. No free air, significant free fluid, or abscess. Bones/joints: Disc degeneration L5-S1. No acute fracture. No dislocation. Soft tissues: Unremarkable. Vasculature: Atherosclerosis without aortic aneurysm. Lymph nodes: Unremarkable. No enlarged lymph nodes. IMPRESSION: Dilated, fluid-filled, inflamed appendix measuring 1.3 cm, consistent with uncomplicated acute appendicitis. No free air or abscess. Communications: Verify Receipt Electronically signed by: Iliana Mcclelland M.D. 03/01/24 23:16 PM (1) Acute appendicitis Acute appendicitis type: with localized peritonitis Appendicitis abscess presence: without abscess Appendicitis gangrene presence: unspecified whether gangrene present Appendicitis perforation presence: without perforation Qualified Code(s): K35.30 - Acute appendicitis with localized peritonitis, without perforation or gangrene
[2024-03-02 06:43] LABS: Thyroid Stimulating Hormone 2.358 uIu/ml (0.300-4.500)
[2024-03-02] MEDS ORDERED: GLUCAGON FOR INJ 1 MG VIAL SQ PRN (06:44)
[2024-03-02] MEDS ORDERED: DEXTROSE 50% 50 ML SYRINGE IV PRN ×2 (06:44→07:15)
[2024-03-02] MEDS ORDERED: CARBOHYDRATES FOR HYPOGLYCEMIA PO PRN ×2 (06:44→07:15)
[2024-03-02] MEDS ORDERED: GLUCOSE 40% GEL 15 GM TUBE PO PRN ×2 (06:44→07:15)
[2024-03-02] MEDS ORDERED: GLUCOSE 10 TAB/TUBE PO PRN ×2 (06:44→07:15)
[2024-03-02] MEDS ORDERED: INSULIN ASPART PER UNIT CHARGE SQ SCH (06:45)
[2024-03-02 07:05] LABS: Estimated Average Glucose 151 mg/dl; Hemoglobin A1C 6.9 % (4.5-5.6)
[2024-03-02] MEDS ORDERED: GLUCAGON FOR INJ 1 MG VIAL IM PRN (07:15)
[2024-03-02] MEDS ORDERED: INSULIN ASPART 100 UNITS/ML VIAL SC PRN (07:15)
[2024-03-02] MEDS: MAGNESIUM SULFATE / D5W 1 GM/100 ML BAG IV SCH (08:04)
[2024-03-02] MEDS: MULTIVITAMIN TAB PO SCH (08:08)
--- OUTSIDE RECORDS SUMMARY | 2024-03-02 08:46 | External Medical Summary | Summary of Care ---
Author Name Unknown Organization [facility] Address [address] [place] [address] Phone [phone] Care Team Providers Care Therapeutic Recreation Leader Name Role Phone Antonio Cristobal MD Primary Care Provider + Reason for Visit * Reason Onset Date Comments Medication Refill 01/04/2024 Encounter Details Date Type Department Care Team (Late st Contact Info) Description 01/04/2024 Refill Family Practice [facility] [address] [place] [address] Antonio Cristobal MD [address] [place] [address] Diabetes mellitus with background retinopathy (HCC); Dyslipidemia, goal LDL below 100 Allergies Active Allergy Reactions Criticality Noted Date Comments Dominick Inhibitors Cough High 08/25/2009 Penicillins Rash High 08/25/2009 documented as of this encounter (statuses as of 01/04/2024) Medications Medication Sig Dispensed Refills Start Date End Date Status CENTRUM CARB ASSIST PO TABS Take by mouth at bedtime. Active aspirin enteric coated 81 MG TBEC Take 1 Tab by mouth daily. 100 Tab 3 05/27/2017 Active Insulin Infusion Pump (MINIMCCM Benchmark 670G INSULIN PUMP) LEE Use as directed. 11/16/2018 Active OneTouch Delica Lancets 33G Use to check blood sugar up to 6 times a day. DX E10.22 600 Each 1 02/24/2022 Active OneTouch Ultra 2 w/Device Kit Use to test blood sugar up to 6 times a day. DX E10.22 1 Each 02/24/2022 Active Contour Next Test In Vitro Strip (Glucose Blood) Testing 6 times a day Dx 10.9 600 Strip 3 03/23/2022 Active Triamcinolone Acetonide 0.1 % External Cream (Aristocort) Apply topically to affected area 2 times a day. Apply to right wrist 2x per day 45 g 02/21/2023 Active Additional Information Patient not taking.Reported on 04/12/2023 Amphetamine-Dextroam phet ER 20 MG Oral Capsule Extended Release 24 Hour (Adderall XR)Indications:Atten tion deficit hyperactivity disorder (ADHD), unspecified ADHD type One pill by mouth once a day. Do not cut, crush or chew 30 Capsule 05/17/2023 Active Proventil HFA 108 (90 Base) MCG/ACT Inhalation Aerosol SolutionIndications: Flu-like symptoms Inhale 2 Puffs by mouth every 4 hours as needed for Congestion, Cough or Wheezing. 18 g 08/17/2023 Active Benzonatate 100 MG Oral CapsuleIndications:F nikita-like symptoms Take 2 Capsules by mouth 3 times a day as needed for Cough. 30 Capsule 08/17/2023 Active Insulin Aspart 100 UNIT/ML Injection Solution (NovoLOG ReliOn)Indications:D iabetes mellitus with background retinopathy (HCC) INJECT UP TO 50 UNITS ONCE DAILY VIA PUMP DIRECTED 40 mL 1 10/22/2023 Active Lovastatin 40 MG Oral TabletIndications:Di abetes mellitus with background retinopathy (HCC),Dyslipidemia, goal LDL below 100 Take 1 tablet by mouth once daily 90 Tablet 3 01/04/2024 Active Losartan Potassium 50 MG Oral Tablet (Cozaar) TAKE 1 TABLET BY MOUTH IN THE MORNING 90 Tablet 1 01/04/2024 Active FLUoxetine HCl 40 MG Oral Capsule (PROzac)Indications: Major depression, chronic Take 1 capsule by mouth in the morning 90 Capsule 1 01/04/2024 Active Dulaglutide 0.75 MG/0.5ML Subcutaneous Solution Pen-injector (Trulicity)Indicatio ns:Type 1 diabetes mellitus with hemoglobin A1c goal of 7.0%-8.0% (HCC),Class 1 obesity with serious comorbidity and body mass index (BMI) of 32.0 to 32.9 in adult, unspecified obesity type Inject 0.75 mg under the skin once a week. 2 mL 1 01/03/2024 Active documented as of this encounter (statuses as of 01/04/2024) Active Problems Problem Noted Date Diagnosed Date Hyperkalemia 08/31/2022 Stage 3b chronic kidney disease 05/11/2022 Recurrent major depressive disorder 03/23/2022 History of 2019 novel coronavirus disease (COVID -19) 07/15/2021 Overview: 07/07 Type 1 DM with CKD stage 3 and hypertension 11/15 Overview: Per CKD protocol Diabetic nephropathy, type I 11/21/2016 Essential hypertension with goal blood pressure less than 140/90 09/22/2015 Overview: Per HTN Protocol #27. 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 Colon screen-declines scope, cologuard. Will do FOB last 04/07 12/03 has new insulin monitor/pump 07/31-inc prozac to 40 Major depression, chronic 06/08/2013 Graves disease 06/08/2013 Overview: 10/28 TSH 1 Chronic rhinitis 08/25/2009 Sciatica 08/25/2009 Encounter for routine gynecological examination 08/25/2009 Overview: ICD-10 update of inactive term Dyslipidemia, goal LDL below 100 Overview: followed by Dr Barragan Anxiety state Overview: followed by Dr Barragan Type 1 diabetes mellitus wit h hemoglobin A1c goal of 7.0%-8.0% Overview: 2015-worsening proteinuria, referred renal, hasn't seen , NEED FOLLOW UP 11/29 a1c 7.6, scan, Microalb +. Lipids At goal Cr 1.49. 04/30 [facility] a1c 7.0. Micoralb + 119. 07/31 Labs scan-Cr 1.3 GFR 50s Javid Endo On insulin pump 10/28 a1c 7.5, + microalb 35 ICD-10 update of inactive term documented as of this encounter (statuses as of 01/04/2024) Resolved Problems Problem Noted Date Diagnosed Date Resolved Date Major depressive disorder, s bhanu episode, severe without psychotic features 10/06/20202020 Type 1 diabetes mellitus wit h stage 3 chronic kidney disease and hypertension 05/31/2019 11/28/19 Overview: Per CKD protocol CKD (chronic kidney disease) 11/21/2016 10/28/2017 Kidney disease, chronic, sta ge III (GFR 30-59 ml/min) 06/08/2013 06/28/2019 HTN, goal below 140/80 03/06/201210/22 Overview: Per HTN Protocol #27. followed by Dr Barragan Acute bronchitis, complicated 09/07/2010 07/16/2013 Type 1 diabetes mellitus wit h hemoglobin A1c goal of less than 7.0% 09/16/2011 Overview: Diabetes Type I, Controlled- ON PUMP -- Aida Barragan ICD-10 update of inactive term HTN, goal below 130/80 03/09 Overview: followed by Dr Barragan documented as of this encounter (statuses as of 01/04/2024) Immunizations Name Administration Dates Next Due Covid-19 Ad26, Single Dose (Anatoly/J&J) 12/27/2020 Hepatitis B, 20+ yrs 02/25/2014,09/28/2013,08/16 Pneumococcal Polysaccharide PPV23 (Pneumovax) 08/16/2013 Seasonal Influenza, PF, 6 M & above, IM , (FluLaval or Fluzone) 07/02/2022,03/26/2021,03/14/2020,05/31,05/30/2018 Seasonal Influenza, Quadriva lent, No Preserve, IM 03/31/2016,04/22/2015 Seasonal Influenza, Split, I IV3, With Preserve, Inj 05/17/2011,04/20/2010 TDAP (age 10 and older)(Boostrix) 10/06/2020 TDAP, Age 7 and older, IM (Adacel) 04/20/2010 Zoster Vaccine Recombinant (Shingrix) 05/31/2019 ,12/01/2018 documented as of this encounter Social History Tobacco Use Types Packs/Day Years Used Date Smoking Tobacco: Never Smokeless Tobacco: Never Alcohol Use Standard Drinks/Week Comments Yes 0 (1 standard drink = 0.6 oz pur e alcohol) rare social PHQ-2 Answer Date Recorded PHQ Adult Total Score 0 02/23/2022 Utilities Answer Date Recorded Do you have trouble paying y our heating, water, or electric bill? (Adult - for ages 18 years and over) Not on file 01/03/2024 Is your family able to pay t he heat, water, or electric bill? (Household - for ages 0-17 years) Not on file 01/03/2024 Does your family have access to good internet? (Household - for ages 0-17 years) Not on file 01/03/2024 Social Connections Answer Date Recorded How often do you feel lonely or isolated from those around you? (Adult - for ages 18 years and over) Not on file 01/03/2024 Sex and Gender Information Value Date Recorded Sex Assigned at Not on file Gender Identity Not on file Sexual Orientation Not on file Job Start Date Occupation Industry Not on file Not on file Not on file documented as of this encounter Miscellaneous Notes * Telephone Encounter - Roc Jovel RN - 01/04/2024 9:30 AM EDTRefused Prescriptions: Disp Refills Lovastatin 40 MG Oral Tablet 90 Tab*3 Sig: Take 1 tablet by mouth once dailyRefused By: ROC JOVEL for Refusal: Duplicate Request * Telephone Encounter - Jane Martinez OSA - 01/04/2024 9:01 AM EDT Did you pend patient's preferred pharmacy and medication before forwarding?yes Pharmacy: [facility] [address] [address] [facility] Pending Prescriptions: Disp Refills Lovastatin 40 MG Oral Tablet 90 Tab*3 Sig: Take 1 tablet by mouth once daily Last Visit: 04/12/2023 (in office), Visit date not found (telemedicine) Next Visit: 03/27/2024 If no future appointments scheduled, and last appointment is greater than a year ago, please schedule patient for a follow-up appointment Last date the medication was ordered: 01/04/24 Is this request for a controlled substance?No Urine Drug Screen:No results found for this or any previous visit. Patient Phone Numbers Labs: Lab Results Component Value Date/Time CREAT 1.3 (H) 09/27/2023 08:58 AM CREAT 1.5 (H) 01/28/2020 03:14 PM POTASSIUM 5.0 09/27/2023 08:58 AM POTASSIUM 5.2 (H) 01/28/2020 03:14 PM TSH 1.94 06/21/2016 04:14 PM LDLCALC 94 03/23/2022 05:16 PM LDLCALC 78 05/31/2019 12:10 PM LDLDIRECT NOT APPLICABLE 05/31/2019 12:10 PM LDLDIRECT 101 06/21/2016 04:14 PM ALT 13 11/19/2016 10:09 AM HGBA1C 6.2 (H) 01/03/2024 03:16 PM HGBA1C 7.3 (H) 01/28/2020 03:14 PM documented in this encounter Plan of Treatment Upcoming Encounters Date Type Department Care Team (Late st Contact Info) Description 03/27/2024 1:00 PM EDT Office Visit Family [facility] [address] [facility] [place] [address] Berenice Valle CRNP 132 [facility] [place] [address] 03/27/2024 1:30 PM EDT Laboratory Laboratory, [facility] [address] [facility] [place] [phone] [facility] [address] 04/04/2024 9:00 AM EDT Office Visit Pharmacy, [facility] [address] [place] [address] Pharmacist1, [facility] [address] [facility] [place] [address] 04/24/2024 1:00 PM EDT [facility] [address] [facility] [place] [address] 08/21/2024 1:40 PM EST Office Visit Family Practice [facility] [address] [facility] [place] [address] Antonio Cristobal MD 132 [facility] [place] [address] Health Maintenance Due Date Last Done Comments HIV Screening 1981 Hepatitis C Screening 1984 Cologuard 10/31/2011 Colonoscopy 10/31/2011 Sigmoidoscopy 10/31/2011 Pneumococcal Vaccine: Pediatrics (0 to 5 Years) and At-Risk Patients (6 to 64 Years) (2 of 2 - PCV) 08/16/2014 08/16/2013 CKD PHOS USE SMARTSET 25667 10/23/2016 10/24/2015 Colorectal Cancer Screening 12/18/2021 Fecal Occult Blood Test 12/18/2021 12/18/2020, 06/15 Diabetic Foot Exam 04/08/2022 04/08/2021, 1 07/30/2017, 05/27/2017, Additional history exists Depression Monitoring 02/23/2023 02/23/2022 COVID-19 Vaccine ( season) 2023 12/27/2020 CKD HGB USE SMARTSET 24582 06/29/202306/29, 05/31/2019, 10/27/2018, Additional history exists Influenza Vaccine (FLU shot) (Season Ended) 2024 07/02/2022, 03/26/2021, 03/14/2020, Additional history exists GFR 03/29/2024 09/27/2023, 09/16, 09/07/2022, Additional history exists Mammogram 05/10/2024 05/10/2023, 08/2022, 07/31/2019, Additional history exists HbA1c 07/04/2024 01/03/2024, 09/15, 06/21/2023, Additional history exists Diabetic Eye Exam 07/25/2024 07/25/2023, , 02/27/2020, Additional history exists Albumin/Creatinine Ratio 09/26/2024 024, 03/23/2022, 04/08/2021, Additional history exists Pap Smear 04/16/2026 04/16/2023, 05/18, 03/25/2015, Additional history exists Lipid Panel 03/23/2027 03/23/2022, 09/15, 05/31/2019, Additional history exists Cervical Cancer Screening 04/16/2028 HPV/Co-Test 04/16/2028 04/16/2023 DTaP,Tdap,and Td Vaccines (3 - Td or Tdap) 10/06/2030 10/06/2020, 04/20/2010 Hepatitis B Completed 02/25/2014, 09/15, 08/16/2013 Zoster Vaccines Completed 05/31/2019, 12/01/2018 GARDASIL-HPV IMMUNIZATION SERIES Aged Out No longer eligible based on patient's age to complete this topic MENINGOCOCCAL (MENACTRA/MENVEO) Aged Out No longer eligible based on patient's age to complete this topic documented as of this encounter Medical Devices Implanted Type Area Foot Orthopedist Device Identifier Shelf Expiration Date Model / Serial / Lot Lens Li61ao 13.00mm 20.50 - [id number] - [id number] Implanted:Qty: 1 on 04/21/2023 by Mukul Avitia MD at [facility] Right: Eye [employer] 11/15/2027 [id number] / [id number] / [id number] documented as of this encounter Visit Diagnoses Diagnosis Diabetes mellitus with background retinopathy (HCC) Dyslipidemia, goal LDL below 100 Other and unspecified hyperlipidemia documented in this encounter Advance Directives * Full Code (Latest Code Status on File) Date Activated Date Inactivated Comments 04/21/2023 6:44 AM 04/21/2023 12:45 PM This order reflects the patients wishes and were consensually agreed upon. Question Answer Comments Discussion of Advance Directives occurred with: Patient Does the patient have a Living Will? No Does the patient have Health Care Power of Attor brittany? No Care Teams Therapeutic Recreation Leader Relationship Specialty Start Date End Date Antonio Cristobal MD 132 [facility] [place] [address] PCP - General Family Medicine 10/03/14 documented as of this encounter
--- OUTSIDE RECORDS SUMMARY | 2024-03-02 08:46 | External Medical Summary ---
Author Name Unknown Address Unknown Organization K01:LABORATORY [facility] - [facility] [address] [facility] [address] Laboratory Report Ordering Provider Test Date Status MILAN LEIGH 02/25/2024 14:51:45 Final For PreSurgery, Procedure, O B Admit, or Surveillance testing - Nasal Turbinate source preferred.

For Symptomatic testing - Nasopharyngeal source preferred.
null Observation Date Value Abnormality Reference (Units ) Status SARS Coronavirus 2 02/25/2024 14:51:45 Negative N egative Final 2018 Novel Coronavirus not d etected.

This express test was developed and its performance characteristics determined by [employer]. It has not been cleared or approved by the U.S. Food and Drug Administration (FDA). FDA does not require this test to go thru premarket FDA review. This test is used for clinical purposes. It should not be regarded as investigational or for research. This laboratory is certified under the Clinical Laboratory Improvement Amendments (CLIA) as qualified to perform high complexity clinical laboratory testing.

This test is a nucleic acid amplification test (NAAT), a reverse transcriptase polymerase chain reaction (RT-PCR) test, or a Centers for Disease Control-acceptable equivalent. The test is performed in a high complexity Clinical Laboratory Improvement Amendments-(CLIA) certified laboratory. The test is acceptable for SARS-CoV-2 diagnosis, surveillance, and travel within the [place] and to most countries. Please check with local testing authorities about requirements before travel.

The validation of bronchial specimens, tracheal aspirates, and sputum for this assay was developed and performance characteristics determined by [facility] [facility]. The validation of alternate specimen types has not been cleared or approved by the U.S. Food and Drug Administration (FDA). It has been determined that such clearance is not necessary. Performing Location LABORATORY [facility] [place] - [address] [facility] [address]
--- OUTSIDE RECORDS SUMMARY | 2024-03-02 08:46 | External Medical Summary | Summary of Care ---
Author Name Unknown Organization [facility] Address [address] [place] [address] Phone [phone] Care Team Providers Care Regional Facilities Specialist Name Role Phone Antonio Cristobal MD Primary Care Provider + Reason for Visit * Reason Onset Date Comments Medication Refill 01/04/2024 Encounter Details Date Type Department Care Team (Late st Contact Info) Description 01/04/[address] [facility] [address] [place] [address] Antonio Cristobal MD 132 [facility] [place] [id number] Major depression, chronic Allergies Active Allergy Reactions Criticality Noted Date [...] Tab 3 05/27/2017 Active Insulin Infusion Pump (MINIM[employer] Pharm[employer] 670G INSULIN PUMP) LEE Use as directed. [...] (NovoLOG ReliOn)Indications:D iabetes mellitus with background retinopathy ([facility]) INJECT UP TO 50 UNITS ONCE DAILY [...] Active Dulaglutide 0.75 MG/0.5ML Subcutaneous Solution Pen-injector ([facility])Indicatio ns:Type 1 diabetes mellitus with hemoglobin A1c goal of 7.0%-8.0% ([facility]),Class 1 obesity with serious comorbidity and body [...] h hemoglobin A1c goal of 7.0%-8.0% Overview: 2016-worsening proteinuria, referred renal, hasn't seen , NEED FOLLOW UP 11/29 a1c 7.6, scan, Microalb +. Lipids At goal Cr 1.49. 04/30 [facility] a1c 7.0. Micoralb + 119. 07/31 [...] Encounter - Roc Jovel RN - 01/04/2024 9:29 AM EDTRefused Prescriptions: Disp Refills FLUoxetine HCl 40 MG Oral Capsule (PROzac) 90 Cap*1 Sig: Take 1 Capsule by mouth in the morning.Refused By: ROC JOVEL for Refusal: Duplicate Request-- * Telephone Encounter - Jane Martinez OSA - 01/04/2024 9:00 AM EDT Did you pend patient's preferred pharmacy and medication before forwarding?yes [facility] [address] Pending Prescriptions: Disp Refills FLUoxetine HCl 40 MG Oral Capsule (PROzac)90 Cap*1 Sig: Take 1 Capsule by mouth in the morning. Last Visit: 04/12/2023 (in office), Visit date [...] Description 03/27/2024 1:00 PM EDT Office Visit [facility] [address] [facility] [place] [address] Berenice Valle CRNP 132 [facility] [place] [address] 03/27/2024 1:30 PM EDT Laboratory Laboratory, [facility] [address] [facility] [place] [phone] [facility] [address] [facility] [place] [address] 04/04/2024 9:00 AM EDT Office Visit Pharmacy, [facility] [address] [facility] [place] [address] Pharmacist1, [facility] [address] [facility] [place] [address] 04/24/2024 1:00 PM EDT Imaging Radiology [facility] [facility] [address] [facility] [place] [address] 08/21/2024 1:40 PM EST Office Visit Family Practice [facility] [address] [facility] [place] [address] Antonio Cristobal MD 132 [facility] [place] [address] Health Maintenance Due Date Last Done Comments HIV Screening 1981 Hepatitis C Screening 1984 Cologuard 10/31/2011 Colonoscopy 10/31/2011 Sigmoidoscopy 10/31/2011 Pneumococcal Vaccine: Pediatrics (0 to 5 Years) and At-Risk Patients (6 to 64 Years) (2 of 2 - PCV) 08/16/2014 08/16/2013 CKD PHOS USE SMARTSET 94437 10/23/2016 10/24/2015 Colorectal Cancer Screening 12/18/2021 Fecal Occult Blood Test 12/18/2021 12/18/2020, 06/15 Diabetic Foot Exam 04/08/2022 04/08/2021, 1 07/30/2017, 05/27/2017, Additional history exists Depression Monitoring 02/23/2023 02/23/2022 COVID-19 Vaccine ( season) 2023 12/27/2020 CKD HGB USE SMARTSET 44230 06/29/202306/29, 05/31/2019, 10/27/2018, Additional history exists Influenza [...] this encounter Medical Devices Implanted Type Area Patient Resource Specialist Device Identifier Shelf Expiration Date Model / Serial / Lot Lens Li61ao 13.00mm 20.50 - [id number] - [id number] Implanted:Qty: 1 on 04/21/2023 by Mukul Avitia MD at [facility] Right: Eye [employer] 11/15/2027 [id number] / [id number] / [id number] documented as of this encounter Visit Diagnoses Diagnosis Major depression, chronic Major depressive disorder, single episode, unspecified documented in this encounter Advance Directives * [...] Power of Attor brittany? No Care Teams Regional Facilities Specialist Relationship Specialty Start Date End Date Antonio Cristobal MD 132 [facility] [place] [address] PCP - General Family Medicine 10/03/14 documented as of this encounter
--- OUTSIDE RECORDS SUMMARY | 2024-03-02 08:46 | External Medical Summary | Summary of Care ---
Author Name Unknown Organization [facility] Address [address] [place] [address] Phone [phone] Care Team Providers Care Sawmill Manager Name Role Phone Antonio Cristobal MD Primary Care Provider + Encounter Details Date Type Department Care Team (Late st Contact Info) Description 01/09/2024 Orders Only Outcomes Research Department [address] [place], [place] [id number] Clare Jnoes CHRA MyCode Research Other*[id number] Allergies Active Allergy Reactions Criticality Noted Date Comments Dominick Inhibitors Cough High 08/25/2009 Penicillins Rash High 08/25/2009 documented as of this encounter (statuses as of 01/09/2024) Medications Medication Sig Dispensed Refills Start Date End Date Status CENTRUM CARB ASSIST PO TABS Take by mouth at bedtime. Active aspirin enteric coated 81 MG TBEC Take 1 Tab by mouth daily. 100 Tab 3 05/27/2017 Active Insulin Infusion Pump (MINIMED 670G INSULIN PUMP) LEE Use as directed. [...] the morning 90 Capsule 1 01/04/2024 Active Ozempic (0.25 or 0.5 MG/DOSE) 2 MG/3ML Solution Pen-injector (Semaglutide(0.25 or 0.5MG/DOS))Indicatio ns:Type 1 diabetes mellitus with hemoglobin A1c goal of 7.0%-8.0% (HCC),Class 1 obesity due to excess calories with serious comorbidity and body mass index (BMI) of 33.0 to 33.9 in adult Inject 0.25 mg under the skin once a week. For 4 weeks then increase to 0.5mg weekly. 3 mL 11 01/04/2024 Active documented as of this encounter (statuses as of 01/09/2024) Active Problems Problem Noted Date Diagnosed Date [...] +. Lipids At goal Cr 1.49. 04/30 [facility] a1c 7.0. Micoralb + 119. 07/31 Labs scan-Cr 1.3 GFR 50s Javid Endo On insulin pump 10/28 a1c 7.5, + microalb 35 ICD-10 update of inactive term documented as of this encounter (statuses as of 01/09/2024) Resolved Problems Problem Noted Date Diagnosed Date Resolved Date Major depressive disorder, s bhanu episode, severe without psychotic features 10/06/20202020 Type 1 diabetes mellitus wit h stage 3 chronic kidney disease and hypertension 05/31/2019 11/28/19 21 Overview: Per CKD protocol CKD (chronic kidney disease) 11/21/2016 10/28/2017 Kidney disease, chronic, sta ge III (GFR 30-59 ml/min) 06/08/2013 06/28/2019 HTN, goal below 140/80 03/06/201210/22 Overview: Per HTN Protocol #27. followed by Dr Barragan Acute bronchitis, complicated 09/07/2010 07/16/2013 Type 1 diabetes mellitus wit h hemoglobin A1c goal of less than 7.0% 09/16/2011 Overview: Diabetes Type I, Controlled- ON PUMP -- [place] Dr Barragan ICD-10 update of inactive term HTN, goal below 130/80 03/09 Overview: followed by Dr Barragan documented as of this encounter (statuses as of 01/09/2024) Immunizations Name Administration Dates Next Due Covid-19 [...] on file documented as of this encounter Plan of Treatment Upcoming Encounters Date Type Department Care Team (Late st Contact Info) Description 03/27/2024 1:00 PM EDT Office Visit Family Practice [facility] [address] [address] Berenice Valle CRNP [address] [place] [address] 03/27/2024 1:30 PM EDT Laboratory Laboratory, [facility] [address] [phone] Vinicius Morgan Garrett [address] [place] [address] 04/04/2024 9:00 AM EDT [facility] [place] [address] Pharmacist1, [facility] [address] [facility] [place] [address] 04/24/2024 1:00 PM EDT Imaging Radiology [facility] 1st [facility] [address] [facility] [place] [address] 08/21/2024 1:40 PM EST Office Visit Family Practice [facility] [address] [facility] [place] [address] Antonio Cristobal MD [address] [place] [address] Scheduled Orders Name Type Priority Associated Diagnoses Orde r Schedule MYCODE SUBSEQUENT ADULT Lab Routine MyCode Research Other*[id number] Every 6 Months for 2 Occurrences starting 01/09/2024 until 01/28/2025 Health Maintenance Due Date Last Done Comments HIV Screening 1981 Hepatitis C Screening 1984 Cologuard 10/31/2011 Colonoscopy 10/31/2011 Sigmoidoscopy 10/31/2011 Pneumococcal Vaccine: Pediatrics (0 to 5 Years) and At-Risk Patients (6 to 64 Years) (2 of 2 - PCV) 08/16/2014 08/16/2013 CKD PHOS USE SMARTSET 57995 10/23/2016 10/24/2015 Colorectal Cancer Screening 12/18/2021 Fecal Occult Blood Test 12/18/2021 12/18/2020, 06/15 Diabetic Foot Exam 04/08/2022 04/08/2021, 1 07/30/2017, 05/27/2017, Additional history exists Depression Monitoring 02/23/2023 02/23/2022 COVID-19 Vaccine ( season) 2023 12/27/2020 CKD HGB USE SMARTSET 63876 06/29/202306/29, 05/31/2019, 10/27/2018, Additional history exists Influenza [...] this encounter Medical Devices Implanted Type Area Cutting Supervisor Device Identifier Shelf Expiration Date Model / Serial / Lot Lens Li61ao 13.00mm 20.50 - [id number] - [id number] Implanted:Qty: 1 on 04/21/2023 by Mukul Avitia MD at OR [facility] Right: Eye [employer] 11/15/2027 [id number] / [id number] / [id number] documented as of this encounter Visit Diagnoses Diagnosis MyCode Research Other*[id number] documented in this encounter Advance Directives * [...] Power of Attor brittany? No Care Teams Sawmill Manager Relationship Specialty Start Date End Date Antonio Cristobal MD [address] [place] [address] PCP - General Family Medicine 10/03/14 documented as of this encounter
--- OUTSIDE RECORDS SUMMARY | 2024-03-02 08:46 | External Medical Summary | Summary of Care ---
Author Name Unknown Organization [facility] Address [address] [place] [address] Phone [phone] Care Team Providers Care Document Examiner Name Role Phone Antonio Cristobal MD Primary Care Provider + Reason for Visit * Reason Comments Acute Pt c/o "sulphur burp s since Tuesday, a lot of gas coming out both ends", states she's tried antacids, nothing is helping. Encounter Details Date Type Department Care Team (Late st Contact Info) Description 02/25/2024 2:20 PM EDT Office Visit Family Practice [facility] [address] [facility] [place] [address] [address] [place] [address] Suspected COVID-19 virus infection*; Gastroenteritis Allergies Active Allergy Reactions Criticality Noted Date Comments Dominick Inhibitors Cough High 08/25/2009 Penicillins Rash High 08/25/2009 documented as of this encounter (statuses as of 02/25/2024) Medications Medication Sig Dispensed Refills Start Date [...] DX E10.22 600 Each 1 02/24/2022 Active [employer] Ultra 2 w/Device Kit Use to test [...] morning 90 Capsule 1 01/04/2024 Active Ozempic (1 MG/DOSE) 4 MG/3ML Subcutaneous Solution Pen-injector (Semaglutide (1 MG/DOSE))Indications :Class 1 obesity without serious comorbidity with body mass index (BMI) of 32.0 to 32.9 in adult, unspecified obesity type Inject 1 mg under the skin once a week. 3 mL 11 01/25/2024 Active Ondansetron HCl 4 MG Oral Tablet Take 1 Tablet by mouth every 8 hours as needed for Nausea. 15 Tablet 02/25/2024 Active documented as of this encounter (statuses as of 02/25/2024) Active Problems Problem Noted Date Diagnosed Date [...] +. Lipids At goal Cr 1.49. 04/30 [facility] a1c 7.0. Micoralb + 119. 07/31 Labs scan-Cr 1.3 GFR 50s Javid Endo On insulin pump 10/28 a1c 7.5, + microalb 35 ICD-10 update of inactive term documented as of this encounter (statuses as of 02/25/2024) Resolved Problems Problem Noted Date Diagnosed Date [...] as of this encounter (statuses as of 02/25/2024) Immunizations Name Administration Dates Next Due Covid-19 [...] on file documented as of this encounter Last Filed Vital Signs Vital Sign Reading Time Taken Comments Blood Pressure 110/62 02/25/2024 2:28 PM EDT Pulse 76 02/25/2024 2:28 PM EDT Temperature - - Respiratory Rate 16 02/25/2024 2:28 PM EDT Oxygen Saturation - - Inhaled Oxygen Concentration - - Weight 72.1 kg (159 lb) 02/25/2024 2:28 PM EDT Height - - Body Mass Index 30.04 04/21/2023 6:58 AM EDT documented in this encounter Progress Notes * Kerrie Dixon, - 02/25/2024 2:29 PM EDT Subjective: Amanda Machuca is a 58 year old female. Chief Complaint Patient presents with Acute Pt c/o "sulphur burps since Tuesday, a lot of gas coming out both ends", states she's tried antacids, nothing is helping. HPI: Amanda Machuca presents today for evaluation of foul smelling flatus and belching. Started 5 days ago. She also feels nauseous. One episode of vomiting. Some diarrhea. No fevers, chills. Body does ache. She also had a little headache. (+) fatigue. Poor appetite. She is a type 1 diabetic. No heartburn. No change in her diet. She finds that she is filling up quickly. No increase in blood sugars. No recent antibiotic use. 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 aspirin enteric coated 81 MG TBEC Take 1 Tab by mouth daily. 100 Tab 3 Insulin Infusion Pump (APProtect 670G INSULIN PUMP) LEE Use as directed. FullStoryTouch Delica Lancets 33G Use to check blood sugar up to 6 times a day. DX E10.22 600 Each 1 OneTouch Ultra 2 w/Device Kit Use to test blood sugar up to 6 times a day. DX E10.22 1 Each 0 Contour Next Test In Vitro Strip (Glucose Blood) Testing 6 times a day Dx 10.9 600 Strip 3 Triamcinolone Acetonide 0.1 % External Cream (Aristocort) Apply topically to affected area 2 times a day. Apply to right wrist 2x per day (Patient not taking: Reported on 04/12/2023) 45 g 0 Amphetamine-Dextroamphet ER 20 MG Oral Capsule Extended Release 24 Hour (Adderall XR) One pill by mouth once a day. Do not cut, crush or chew 30 Capsule 0 Proventil HFA 108 (90 Base) MCG/ACT Inhalation Aerosol Solution Inhale 2 Puffs by mouth every 4 hours as needed for Congestion, Cough or Wheezing. 18 g 0 Benzonatate 100 MG Oral Capsule Take 2 Capsules by mouth 3 times a day as needed for Cough. 30 Capsule 0 Insulin Aspart 100 UNIT/ML Injection Solution (NovoLOG ReliOn) INJECT UP TO 50 UNITS ONCE DAILY VIAPUMP DIRECTED 40 mL 1 Lovastatin 40 MG Oral Tablet Take 1 tablet by mouth once daily 90 Tablet 3 Losartan Potassium 50 MG Oral Tablet (Cozaar) TAKE 1 TABLET BY MOUTH IN THE MORNING 90 Tablet 1 FLUoxetine HCl 40 MG Oral Capsule (PROzac) Take 1 capsule by mouth in the morning 90 Capsule 1 Ozempic (1 MG/DOSE) 4 MG/3ML Subcutaneous Solution Pen-injector (Semaglutide (1 MG/DOSE)) Inject 1 mg under the skin once a week. 3 mL 11 No current facility-administered medications for this visit. Review of patient's allergies indicates: Allergen Reactions Dominick Inhibitors Cough Penicillins Rash Objective: BP 110/62 | Pulse 76 | Resp 16 | Wt 72.1 kg (159 lb) | LMP 04/17/2015 (Exact Date) | BMI 30.04 kg/m | BSA 1.76 m General: alert, healthy, no distress, well nourished, and well developed Neck: supple, no adenopathy, thyroid normal size, non-tender, without nodularity Heart: regular rate & rhythm and no murmur Lungs: chest symmetric with normal AP diameter, no chest deformities noted, normal respiratory rateand rhythm, lungs clear to auscultation Abdomen: abdomen soft and non-tender Extremities: no joint deformities, effusion, or inflammation, no edema Neuro Exam: alert & oriented x 3 with fluent speech, no focal motor/sensory deficits, gait normal Skin: skin color, texture, turgor are normal, no rashes or significant lesions ASSESSMENT/PLAN: Suspected COVID-19 virus infection (Primary) - I question if her symptoms may be due to COVID. She is agreeable to testing. - SARS-COV-2 (COVID-19), NAAT Gastroenteritis - if COVID test is negative, consider PPI. Zofran given for symptomatic management for now. Other orders - Ondansetron HCl 4 MG Oral Tablet; Take 1 Tablet by mouth every 8 hours as needed for Nausea. Follow Up: Return if symptoms worsen or fail to improve. Kerrie Dixon DO documented in this encounter Plan of Treatment Upcoming Encounters Date Type Department Care Team (Late st Contact Info) Description 03/27/2024 1:00 PM EDT Office Visit [facility] [address] [facility] [place] [address] Berenice Valle CRNP [address] [facility] [place] [address] 03/27/2024 1:30 PM EDT Laboratory Laboratory, [facility] [address] [facility] [place] [id number] [facility] 132 [facility] [place] [address] 04/04/2024 9:00 AM EDT Office Visit Pharmacy, [facility] [place] [address] Pharmacist1, [facility] [address] [place] [address] 04/24/2024 1:00 PM EDT Imaging Radiology [facility] 1st [facility] [address] [place] [address] 08/21/2024 1:40 PM EST Office Visit [facility] [address] [facility] [place] [address] Antonio Cristobal MD [address] [place] [address] Pending Results Name Type Priority Associated Diagnoses Date /Time SARS-COV-2 (COVID-19), NAAT Lab Routine Suspected COVID-19 virus infection 02/25/2024 2:51 PM EDT Health Maintenance Due Date Last Done Comments HIV Screening 1981 Hepatitis C Screening 1984 Cologuard 10/31/2011 Colonoscopy 10/31/2011 Sigmoidoscopy 10/31/2011 Pneumococcal Vaccine: Pediatrics (0 to 5 Years) and At-Risk Patients (6 to 64 Years) (2 of 2 - PCV) 08/16/2014 08/16/2013 CKD PHOS USE SMARTSET 16796 10/23/2016 10/24/2015 Colorectal Cancer Screening 12/18/2021 Fecal Occult Blood Test 12/18/2021 12/18/2020, 06/15 Diabetic Foot Exam 04/08/2022 04/08/2021, 1 07/30/2017, 05/27/2017, Additional history exists Depression Monitoring 02/23/2023 02/23/2022 COVID-19 Vaccine ( season) 2023 12/27/2020 CKD HGB USE SMARTSET 28184 06/29/202306/29, 05/31/2019, 10/27/2018, Additional history exists Influenza Vaccine (FLU shot) (#1) 2024 07/02/2022, 03/26/2021, 03/14/2020, Additional history exists [...] or Tdap) 10/06/2030 10/06/2020, 04/20/2010 Hepatitis B Vaccine Completed 02/25/2014, 09/28/2013, 08/16/2013 Zoster Vaccines Completed 05/31/2019, 12/01/2018 HPV (Gardasil) Vaccine Aged Out No lo nger eligible based on patient's age to complete this topic MENINGOCOCCAL (MENACTRA/MENVEO) Aged Out No longer eligible based on patient's age to complete this topic documented as of this encounter Medical Devices Implanted Type Area [employer] Weapons Sergeant Device Identifier Shelf Expiration Date Model / Serial / Lot Lens Li61ao 13.00mm 20.50 - [id number] - [id number] Implanted:Qty: 1 on 04/21/2023 by Mukul Avitia MD at [facility] Right: Eye [employer] 11/15/2027 [id number] / [id number] / [id number] documented as of this encounter Visit Diagnoses Diagnosis Suspected COVID-19 virus infection- Primary Gastroenteritis Other and unspecified noninfectious gastroenteritis and colitis documented in this encounter Advance Directives * [...] Power of Attor brittany? No Care Teams Document Examiner Relationship Specialty Start Date End Date Antonio Cristobal MD [address] [facility] [place] [address] PCP - General Family Medicine 10/03/14 documented as of this encounter
--- OUTSIDE RECORDS SUMMARY | 2024-03-02 08:47 | External Medical Summary | Summary of Care ---
Author Name Unknown Organization [facility] Address [address] [place] [address] Phone [phone] Care Team Providers Care Detention Attendant Name Role Phone Antonio Cristobal MD Primary Care Provider + Reason for Visit * Reason Comments Outpatient Testing Encounter Details Date Type Department Care Team (Late st Contact Info) Description 09/27/2023 8:50 AM EDT Laboratory Laboratory [facility] [address] [place] [phone] [facility] Lab Scen[address] [place] [address] Hyperkalemia; Type 1 diabetes mellitus with hemoglobin A1c goal of 7.0%-8.0% ([facility]); Type 1 DM with CKD stage 3 and hypertension ([facility]) Allergies Active Allergy Reactions Criticality Noted Date Comments Dominick Inhibitors Cough High 08/25/2009 Penicillins Rash High 08/25/2009 documented as of this encounter (statuses as of 09/27/2023) Medications Medication Sig Dispensed Refills Start Date End Date Status CENTRUM CARB ASSIST PO TABS Take by mouth at bedtime. 0 Active aspirin enteric coated 81 MG TBEC Take 1 Tab by mouth daily. 100 Tab 3 05/27/2017 Active Insulin Infusion Pump (MINIMNWIX 670G INSULIN PUMP) LEE Use as directed. 0 11/16/2018 Active OneTouch Delica Lancets 33G Use to check blood sugar up to 6 times a day. DX E10.22 600 Each 1 02/24/2022 Active OneTouch Ultra 2 w/Device Kit Use to test blood sugar up to 6 times a day. DX E10.22 1 Each 0 02/24/2022 Active Contour Next Test In Vitro Strip (Glucose Blood) Testing 6 times a day Dx 10.9 600 Strip 3 03/23/2022 Active Triamcinolone Acetonide 0.1 % External Cream (Aristocort) Apply topically to affected area 2 times a day. Apply to right wrist 2x per day 45 g 0 02/21/2023 Active Additional Information Patient not taking.Reported on 04/12/2023 Insulin Aspart 100 UNIT/ML Injection Solution (NovoLOG)Indications :Diabetes mellitus with background retinopathy (HCC) Use with pump as directed up to 50 units daily 40 mL 1 05/17/2023 Active Amphetamine-Dextroam phet ER 20 MG Oral Capsule Extended Release 24 Hour (Adderall XR)Indications:Atten tion deficit hyperactivity disorder (ADHD), unspecified ADHD type One pill by mouth once a day. Do not cut, crush or chew 30 Capsule 0 05/17/2023 Active Proventil HFA 108 (90 Base) MCG/ACT Inhalation Aerosol SolutionIndications: Flu-like symptoms Inhale 2 Puffs by mouth every 4 hours as needed for Congestion, Cough or Wheezing. 18 g 0 08/17/2023 Active Benzonatate 100 MG Oral CapsuleIndications:F nikita-like symptoms Take 2 Capsules by mouth 3 times a day as needed for Cough. 30 Capsule 0 08/17/2023 Active Losartan Potassium 50 MG Oral Tablet (Cozaar) TAKE 1 TABLET BY MOUTH IN THE MORNING 90 Tablet 0 09/20/2023 Active Lovastatin 40 MG Oral TabletIndications:Di abetes mellitus with background retinopathy (HCC),Dyslipidemia, goal LDL below 100 Take 1 tablet by mouth once daily 90 Tablet 0 09/20/2023 Active FLUoxetine HCl 40 MG Oral Capsule (PROzac)Indications: Major depression, chronic Take 1 capsule by mouth in the morning 90 Capsule 0 09/20/2023 Active documented as of this encounter (statuses as of 09/27/2023) Active Problems Problem Noted Date Diagnosed Date [...] +. Lipids At goal Cr 1.49. 04/30 [facility] a1c 7.0. Micoralb + 119. 07/31 Labs scan-Cr 1.3 GFR 50s Javid Endo On insulin pump 4/13 a1c 7.5, + microalb 35 ICD-10 update of inactive term documented as of this encounter (statuses as of 09/27/2023) Resolved Problems Problem Noted Date Diagnosed Date [...] Diabetes Type I, Controlled- ON PUMP -- [place] Dr Barragan ICD-10 update of inactive term HTN, goal below 130/80 03/09 Overview: followed by Dr Barragan documented as of this encounter (statuses as of 09/27/2023) Immunizations Name Administration Dates Next Due Covid-19 Ad26, Single Dose (Anatoly/J&J) 12/27/2020 Hepatitis B, 20+ yrs 02/25/2014,09/28/2013,08/16 Pneumococcal Polysaccharide PPV23 (Pneumovax) 08/16/2013 Seasonal Influenza, PF, 6 M & above, IM , (FluLaval or Fluzone) 07/02/2022,03/26/2021,03/14/2020,05/31,05/30/2018 Seasonal Influenza, Quadriva lent, No Preserve, IM 03/31/2016,04/22/2015 Seasonal Influenza, Split, I IV3, With Preserve, Inj 05/17/2011,04/20/2010 TDAP (age 10 and older)(Boostrix) 10/06/2020 TDAP (age 11 and older)(Adacel) 04/20/2010 Zoster Vaccine Recombinant (Shingrix) 05/31/2019 ,12/01/2018 documented as of this encounter Social History Tobacco Use Types Packs/Day Years Used Date Smoking Tobacco: Never Smokeless Tobacco: Never Alcohol Use Standard Drinks/Week Comments Yes 0 (1 standard drink = 0.6 oz pur e alcohol) rare social PHQ-2 Answer Date Recorded PHQ Adult Total Score 0 02/23/2022 Sex and Gender Information Value Date Recorded Sex Assigned at Not on file Gender Identity Not on file Sexual Orientation Not on file Job Start Date Occupation Industry Not on file Not on file Not on file documented as of this encounter Plan of Treatment Upcoming Encounters Date Type Department Care Team (Late st Contact Info) Description 01/03/2024 3:50 PM EDT Office Visit Pharmacy, [facility] [address] [place] [address] Pharmacist1, [facility] [address] [place] [address] 04/24/2024 1:00 PM EDT Imaging Radiology [facility] [address] [facility] [address] [facility] [place] [address] Pending Results Name Type Priority Associated Diagnoses Date /Time BASIC METABOLIC PANEL Lab Routine Hyperkalemia 09/27/2023 8:58 AM EDT ALBUMIN / CREATININE RATIO, URINE Lab Routine Type 1 diabetes mellitus with hemoglobin A1c goal of 7.0%-8.0% (HCC) Type 1 DM with CKD stage 3 and hypertension (HCC) 09/27/2023 8:58 AM EDT Health Maintenance Due Date Last Done Comments HIV Screening 1981 Hepatitis C Screening 1984 Cologuard 10/31/2011 Colonoscopy 10/31/2011 Sigmoidoscopy 10/31/2011 Pneumococcal Vaccine: Pediatrics (0 to 5 Years) and At-Risk Patients (6 to 64 Years) (2 of 2 - PCV) 08/16/2014 08/16/2013 CKD PHOS USE SMARTSET 89067 10/23/2016 10/24/2015 Colorectal Cancer Screening 12/18/2021 Fecal Occult Blood Test 12/18/2021 12/18/2020, 06/15 Diabetic Foot Exam 04/08/2022 04/08/2021, 1 07/30/2017, 05/27/2017, Additional history exists Depression Screening 02/23/2023 02/23/2022 COVID-19 Vaccine ( season) 2023 12/27/2020 Influenza Vaccine (FLU shot) (#1) 2023 07/02/2022, 03/26/2021, 03/14/2020, Additional history exists Albumin/Creatinine Ratio 03/23/2023 022, 04/08/2021, 05/31/2019, Additional history exists GFR 04/14/2023 10/12/2022, /07/2022, 06/29/2022, Additional history exists CKD HGB USE SMARTSET 63078 06/29/202306/29, 05/31/2019, 10/27/2018, Additional history exists HbA1c 03/29/2024 09/27/2023, 12/0 11/2022, 03/18/2023, Additional history exists Mammogram 05/10/2024 05/10/2023, 1008/2022, 07/31/2019, Additional history exists Diabetic Eye Exam 07/25/2024 07/25/2023, , 02/27/2020, Additional history exists Pap Smear 04/16/2026 04/16/2023, [...] this encounter Medical Devices Implanted Type Area Nursing Informatics Clinical Analyst Device Identifier Shelf Expiration Date Model / Serial / Lot Lens Li61ao 13.00mm 20.50 - [id number] - [id number] Implanted:Qty: 1 on 04/21/2023 by Mukul Avitia MD at [facility] Right: Eye [employer] 11/15/2027 [id number] / [id number] / [id number] documented as of this encounter Visit Diagnoses Diagnosis Hyperkalemia Hyperpotassemia Type 1 diabetes mellitus with hemoglobin A1c goal of 7.0%-8.0% (HCC) Type 1 DM with CKD stage 3 and hypertension (HCC) documented in this encounter Advance Directives Latest Code Status on File Code Status Date Activated Date Inactivated Comments Full Code 04/21/2023 6:44 AM 04/21/2023 12:45 PM This order reflects the patients wishes and were consensually agreed upon. Question Answer Comments Discussion of Advance Directives occurred with: Patient Does the patient have a Living Will? No Does the patient have Health Care Power of Feeder Operator? No Care Teams Detention Attendant Relationship Specialty Start Date End Date Antonio Cristobal MD [address] [place] [id number] PCP - General Family Medicine 10/03/14 documented as of this encounter
--- OUTSIDE RECORDS SUMMARY | 2024-03-02 08:47 | External Medical Summary | Summary of Care ---
Author Name Unknown Organization [facility] Address [address] [place] [address] Phone [phone] Care Team Providers Care Framer Name Role Phone Antonio Cristobal MD Primary Care Provider + Reason for Visit * Reason Onset Date Comments Health Maintenance 11/18/2023 Encounter Details Date Type Department Care Team (Late st Contact Info) Description 11/18/2023 Telephone Family Practice [facility] [address] [facility] [place] [address] Antonio Cristobal MD [address] [facility] [place] [phone] Health Maintenance Allergies Active Allergy Reactions Criticality Noted Date Comments Dominick Inhibitors Cough High 08/25/2009 Penicillins Rash High 08/25/2009 documented as of this encounter (statuses as of 11/18/2023) Medications Medication Sig Dispensed Refills Start Date End Date Status CENTRUM CARB ASSIST PO TABS Take by mouth at bedtime. 0 Active aspirin enteric coated 81 MG TBEC Take 1 Tab by mouth daily. 100 Tab 3 05/27/2017 Active Insulin Infusion Pump (MINIMNanoSteel 670G INSULIN PUMP) LEE Use as directed. 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 Lipids At goal Cr 1.49. 04/30 [facility] a1c 7.0. Micoralb + 119. 07/31 Labs scan-Cr 1.3 GFR 50s Javid Endo On insulin pump 10/28 a1c 7.5, + microalb 35 ICD-10 update of inactive term documented as of this encounter (statuses as of 11/18/2023) Resolved Problems Problem Noted Date Diagnosed Date [...] as of this encounter (statuses as of 11/18/2023) Immunizations Name Administration Dates Next Due Covid-19 [...] encounter Miscellaneous Notes * Telephone Encounter - Naz Estes ROBY - 11/18/2023 9:11 AM EDT Care Gaps Comprehensive Care Outreach Last Office/Telemedicine Visit: 04/12/2023 (in office), Visit date not found (telemedicine) Next Office Visit: Visit date not found Hemoglobin AIC Results: Lab Results Component Value Date/Time HEMOGLOBIN A1C - [facility] 7.6 (H) 03/23/2022 05:16 PM HEMOGLOBIN A1C - [facility] 7.5 (H) 10/03/2020 08:56 AM HEMOGLOBIN A1C - [facility] 7.3 (H) 01/28/2020 03:14 PM HEMOGLOBIN A1C - [facility] 7.4 (H) 05/30/2018 02:28 PM HEMOGLOBIN A1C - [facility] 7.2 (H) 09/22/2017 01:54 PM HEMOGLOBIN A1C POCT - [facility] 6.4 (H) 09/27/2023 07:49 AM HEMOGLOBIN A1C POCT - [facility] 6.5 (H) 06/21/2023 07:54 AM HEMOGLOBIN A1C POCT - [facility] 6.7 (H) 03/18/2023 03:03 PM BP Readings from Last 1 Encounters: 08/17/23 110/60 Reviewed Health Maintenance below: Health Maintenance Topic Date Due HIV Screening Never done Hepatitis C Screening Never done Pneumococcal Vaccine: Pediatrics (0 to 5 Years) and At-Risk Patients (6 to 64 Years) (2 of 2 - PCV)08/16/2014 CKD PHOS USE SMARTSET 28788 10/23/2016 Colorectal Cancer Screening 12/18/2021 Diabetic Foot Exam 04/08/2022 COVID-19 Vaccine ( season) 2023 CKD HGB USE SMARTSET 19377 06/29/2023 Influenza Vaccine (FLU shot) (Season Ended) 2024 HbA1c 03/29/2024 GFR 03/29/2024 Mammogram 05/10/2024 Ov scheduled Colon fobt Lab ordered and scheduled same day Mamm already scheduled Care Gap Outreach Action Taken: Spoke to patient documented in this encounter Plan of Treatment Upcoming Encounters Date Type Department Care Team (Late st Contact Info) Description 01/03/2024 3:50 PM EDT Office Visit Pharmacy, [facility] [address] [facility] [place] [address] Pharmacist1, [facility] [address] [facility] [place] [address] 03/27/2024 1:00 PM EDT Office Visit [facility] [address] [facility] [place] [address] Berenice Valle CRNP [address] [facility] [place] [address] 03/27/2024 1:30 PM EDT Laboratory Laboratory, [facility] [address] [facility] [place] [phone] [facility] [address] [facility] [place] [address] 04/24/2024 1:00 PM EDT Imaging Radiology [facility] 1st [facility] [address] [facility] [place] [address] 08/21/2024 1:40 PM EST Office Visit [facility] [address] [facility] [place] [address] Antonio Cristobal MD [address] [facility] [place] [address] Scheduled Orders Name Type Priority Associated Diagnoses Orde r Schedule PHOSPHORUS Lab Routine Chronic kidney disease, unspecified CKD stage Expected: 03/19/2024, Expires: 11/17/2024 CBC Lab Routine Chronic kidney disease, unspecified CKD stage Expected: 03/19/2024, Expires: 11/17/2024 COMPREHENSIVE METABOLIC PANEL Lab Routine Chronic kidney disease, unspecified CKD stage Expected: 03/19/2024, Expires: 11/17/2024 HEMOGLOBIN A1C Lab Routine Diabetes mellitus (HCC) Expected: 03/18/2024, Expires: 11/17/2024 Health Maintenance Due Date Last Done Comments HIV Screening 1981 Hepatitis C Screening 1984 Cologuard 10/31/2011 Colonoscopy 10/31/2011 Sigmoidoscopy 10/31/2011 Pneumococcal Vaccine: Pediatrics (0 to 5 Years) and At-Risk Patients (6 to 64 Years) (2 of 2 - PCV) 08/16/2014 08/16/2013 CKD PHOS USE SMARTSET 31695 10/23/2016 10/24/2015 Colorectal Cancer Screening 12/18/2021 Fecal Occult Blood Test 12/18/2021 12/18/2020, 06/15 Diabetic Foot Exam 04/08/2022 04/08/2021, 1 07/30/2017, 05/27/2017, Additional history exists COVID-19 Vaccine ( season) 2023 12/27/2020 CKD HGB USE SMARTSET 75399 06/29/202306/29, 05/31/2019, 10/27/2018, Additional history exists Influenza Vaccine (FLU shot) (Season Ended) 2024 07/02/2022, 03/26/2021, 03/14/2020, Additional history exists GFR 03/29/2024 09/27/2023, 09/16, 09/07/2022, Additional history exists HbA1c 03/29/2024 09/27/2023, 11/2022, 03/18/2023, Additional history exists Mammogram 05/10/2024 05/10/2023, 08/2022, 07/31/2019, Additional history exists Diabetic Eye Exam [...] this encounter Medical Devices Implanted Type Area Caramel Coloring Operator Device Identifier Shelf Expiration Date Model / Serial / Lot Lens Li61ao 13.00mm 20.50 - [id number] - [id number] Implanted:Qty: 1 on 04/21/2023 by Mukul Avitia MD at [facility] Right: Eye [employer] 11/15/2027 [id number] / [id number] / [id number] documented as of this encounter Visit Diagnoses Diagnosis Diabetes mellitus (HCC)- Primary Type II or unspecified type diabetes mellitus without mention of complication, not stated as uncontrolled Chronic kidney disease, unspecified CKD stage documented in this encounter Advance Directives Latest Code Status on File Code Status Date Activated Date Inactivated Comments Full Code 04/21/2023 6:44 AM 04/21/2023 12:45 PM This order reflects the patients wishes and were consensually agreed upon. Question Answer Comments Discussion of Advance Directives occurred with: Patient Does the patient have a Living Will? No Does the patient have Health Care Power of Mechanism Inspector? No Care Teams Framer Relationship Specialty Start Date End Date Antonio Cristobal MD [address] [place] [address] PCP - General Family Medicine 10/03/14 documented as of this encounter
--- OUTSIDE RECORDS SUMMARY | 2024-03-02 08:47 | External Medical Summary | Summary of Care ---
Author Name Unknown Organization [facility] Address [address] [place] [address] Phone [phone] Care Team Providers Care Reading Efficiency Course Director Name Role Phone Antonio Cristobal MD Primary Care Provider + Reason for Visit * Reason Comments Diabetes Follow-Up Dosage Adjustment In Person (Anticoag Cl inic) Encounter Details Date Type Department Care Team (Late st Contact Info) Description 09/27/2023 8:30 AM EDT Office Visit Pharmacy, [facility] [address] [place] [address] Pharmacist1, [facility] [address] [facility] [place] [address] Type 1 diabetes mellitus with hemoglobin A1c goal of 7.0%-8.0% ([facility])*; Essential hypertension with goal blood pressure less than 140/90 Allergies Active Allergy Reactions Criticality Noted Date [...] Tab 3 05/27/2017 Active Insulin Infusion Pump ([employer] 670G INSULIN PUMP) LEE Use as directed. [...] +. Lipids At goal Cr 1.49. 04/30 [facility] a1c 7.0. Micoralb + 119. [...] Diabetes Type I, Controlled- ON PUMP -- [place] [address] Barragan ICD-10 update of inactive term [...] on file documented as of this encounter Progress Notes * Shorty Vega, [facility] - 09/27/2023 8:35 AM EDT Images from the original note were not included. Medication Therapy Disease Management Clinic - Diabetes Management Progress Note Amanda Machuca, identified by name and date of , is a 57 year old female being seen for diabetes management/education. Patient presents for return diabetic visit. DIABETES: Current diabetic medications: Medtronic 780G Insulin Pump (Serial Number: [id number] , Sensor [id number]) Infusion Set: 7 day [place] set Insulin: Novolog Basal Rate: (irrelevant in automode) 12:00 a.m. - 0.500 units/hr 12 noon - 0.400 units/hr Bolus wizard: on and using ICR: 12:00 a.m - 10 4:00 p.m - 13 ISF: 80 (irrelevant in automode) Active insulin time : 2 hour BG targets 110 Medication Injection Site: Abdomen Lifestyle: Diet: unchanged History of Treatment Barriers: Lifestyle: None Therapy considerations: Type 1 Diabetic Diagnosis Medication: None Glucose Review/SMBG: Readings obtained from patient device Hypoglycemia: Does your blood sugar go below 70 mg/dL? Yes, due to activity or overestimating intake. Hyperglycemia symptoms present: none Recent Labs Units 06/21/23 0754 03/18/23 1503 11/26/22 1517 HEMOGLOBIN A1C POCT - [facility] % 6.5* 6.7* 7.1* Recent Labs Units 10/12/22 1345 09/07/22 1411 06/29/22 0943 ESTIMATED GLOMERULAR FILTRATION RATE - [facility] mL/min 46* 30* 48* CREATININE - [facility] mg/dL 1.4* 1.9* 1.3* Lab Results Component Value Date/Time CREATININE - [facility] 1.4 (H) 10/12/2022 01:45 PM CREATININE - [facility] 1.9 (H) 09/07/2022 02:11 PM CREATININE - [facility] 1.3 (H) 06/29/2022 09:43 AM CREATININE - [facility] 1.5 (H) 01/28/2020 03:14 PM CREATININE - [facility] 1.3 (H) 05/31/2019 12:10 PM CREATININE - [facility] 1.3 (H) 05/30/2018 02:28 PM CREATININE CLEARANCE - [facility] 52 (L) 12/12/1998 02:52 PM CREATININE CLEARANCE - [facility] NOT CORRECTED FOR HEIGHT AND WEIGHT 12/12/1998 02:52 PM CREATININE, 24 HOUR URINE - [facility] 1.201 12/12/1998 02:52 PM CREATININE, RANDOM URINE - [facility] 189 03/23/2022 05:20 PM CREATININE, RANDOM URINE - [facility] 62 04/08/2021 04:04 PM CREATININE, RANDOM URINE - [facility] 71 05/31/2019 12:26 PM CREATININE, RANDOM URINE - [facility] 127 11/19/2016 10:09 AM CREATININE, RANDOM URINE - [facility] 59 06/21/2016 04:19 PM CREATININE-[facility] 1.75 (A) 10/27/2018 12:00 AM CREATININE-OUTSIDE LAB 1.49 (A) 11/17/2014 12:00 AM HYPERTENSION: Patient on ACEi/ARB: yes, Losartan 50mg daily BP Readings from Last 3 Encounters: 08/17/23 110/60 04/21/23 105/83 04/16/23 118/66 Blood pressure at goal: yes HYPERLIPIDEMIA: Patient is taking moderate or high intensity statin: yes, Lovastatin 40mg daily HEALTH MAINTENANCE REVIEW: Health Maintenance Due Topic Date Due HIV Screening Never done Hepatitis C Screening Never done Pneumococcal Vaccine: Pediatrics (0 to 5 Years) and At-Risk Patients (6 to 64 Years) (2 of 2 - PCV)08/16/2014 CKD PHOS USE SMARTSET 41980 10/23/2016 Colorectal Cancer Screening 12/18/2021 Diabetic Foot Exam 04/08/2022 Depression Screening 02/23/2023 Influenza Vaccine (FLU shot) (1) 03/18/2023 COVID-19 Vaccine (2 - 2022- season) 2023 Albumin/Creatinine Ratio 03/23/2023 GFR 04/14/2023 CKD HGB USE SMARTSET 62735 06/29/2023 ASSESSMENT & PLAN: ICD-10-CM 1. Type 1 diabetes mellitus with hemoglobin A1c goal of 7.0%-8.0% (HCC) E10.9 2. Essential hypertension with goal blood pressure less than 140/90 I10 BG Readings - Blood sugars controlled. A1C 6.4 today!! Medications - Reviewed current regimen, patient is adherent to regimen. Diet, Exercise, Lifestyle - No significant lifestyle changes since last visit. Discussed with patient today. Patient is agreeable to wear GL4 Sensor. Patient aware to contact clinic if any hypoglycemia before next visit. MEDICATION CHANGES: no change Diabetic Medications: Medtronic 780G Insulin Pump (Serial Number: [id number] , Sensor [id number]) Infusion Set: 7 day [place] set Insulin: Novolog Basal Rate: (irrelevant in automode) 12:00 a.m. - 0.500 units/hr 12 noon - 0.400 units/hr Bolus wizard: on and using ICR: 12:00 a.m - 10 4:00 p.m - 13 ISF: 80 (irrelevant in automode) Active insulin time : 2 hour BG targets 110 HEALTH MAINTENANCE INTERVENTIONS: Labs: Ordered & Scheduled: BMP/CMP and Urine Microalbumin Immunizations: had flu, needs pneumococcal Foot Exam: needs completed Eye Exam: Up to Date Annual Wellness Visit: N/A FOLLOW UP: Return to clinic in 3 months 01/03/2024 Shorty Linder RPh, DIAE Clinical Pharmacist - Chief Design Drafter Medication Therapy Management Clinic 09/27/2023, 8:35 AM documented in this encounter Plan of Treatment Upcoming Encounters Date Type Department Care Team (Late st Contact Info) Description 01/03/2024 3:50 PM EDT Office Visit Pharmacy, [facility] [address] [place] [address] Pharmacist1, [facility] [address] [place] [address] 04/24/2024 1:00 PM EDT Imaging Radiology [facility] 1st Floor, [place] [address] Health Maintenance Due Date Last Done Comments HIV Screening 1981 Hepatitis C Screening 1984 Cologuard 10/31/2011 Colonoscopy 10/31/2011 Sigmoidoscopy 10/31/2011 Pneumococcal Vaccine: Pediatrics (0 to 5 Years) and At-Risk Patients (6 to 64 Years) (2 of 2 - PCV) 08/16/2014 08/16/2013 CKD PHOS USE SMARTSET 57505 10/23/2016 10/24/2015 Colorectal Cancer Screening 12/18/2021 Fecal Occult Blood Test 12/18/2021 12/18/2020, 06/15 Diabetic Foot Exam 04/08/2022 04/08/2021, 1 07/30/2017, 05/27/2017, Additional history exists Depression Screening 02/23/2023 02/23/2022 COVID-19 Vaccine ( season) 2023 12/27/2020 Influenza Vaccine (FLU shot) (#1) 2023 07/02/2022, 03/26/2021, 03/14/2020, Additional history exists Albumin/Creatinine Ratio 03/23/2023 022, 04/08/2021, 05/31/2019, Additional history exists GFR 04/14/2023 10/12/2022, 02/07/2022, 06/29/2022, Additional history exists CKD HGB USE SMARTSET 89206 06/29/202306/29, 05/31/2019, 10/27/2018, Additional history exists HbA1c 03/29/2024 09/27/2023, 11/2022, [...] this encounter Medical Devices Implanted Type Area Weir Fisher Device Identifier Shelf Expiration Date Model / Serial / Lot Lens Li61ao 13.00mm 20.50 - [id number] - [id number] Implanted:Qty: 1 on 04/21/2023 by Mukul Avitia MD at [facility] Right: Eye [employer]OM[employer] 11/15/2027 [id number] / [id number] / [id number] documented as of this encounter Procedures Procedure Name Priority Date/Time Associated Diagnosis Comments HEMOGLOBIN A1C, POINT OF CARE [place] 09/27/2023 7:49 AM EDT documented in this encounter Results * (ABNORMAL) HEMOGLOBIN A1C, POINT OF CARE (09/27/2023 7:49 AM EDT) Hemoglobin A1c 6.4(H) 4.0 - 5.6 % 09/27/2023 8:45 AM EDT [facility] Blood 09/27/2023 7:49 AM EDT 09/27/2023 8:45 AM EDT [facility] Pharmacist1 LAB POINT OF C ARE TEST DOCKED DEVICE UNSOLICITED RESULTS [facility] [place] [address] documented in this encounter Visit Diagnoses Diagnosis Type 1 diabetes mellitus with hemoglobin A1c goal of 7.0%-8.0% (HCC)- Primary Essential hypertension with goal blood pressure less than 140/90 documented in this encounter Advance Directives Latest Code Status on File Code Status Date Activated Date Inactivated Comments Full Code 04/21/2023 6:44 AM 04/21/2023 12:45 PM This order reflects the patients wishes and were consensually agreed upon. Question Answer Comments Discussion of Advance Directives occurred with: Patient Does the patient have a Living Will? No Does the patient have Health Care Power of Service Porter? No Care Teams Reading Efficiency Course Director Relationship Specialty Start Date End Date Antonio Cristobal MD [address] [place] [address] PCP - General Family Medicine 10/03/14 documented as of this encounter
--- OUTSIDE RECORDS SUMMARY | 2024-03-02 08:47 | External Medical Summary | Summary of Care ---
Author Name Unknown Organization [facility] Address [address] [place] [address] Phone [phone] Care Team Providers Care Technology Advisor Name Role Phone Antonio Cristobal MD Primary Care Provider + Reason for Visit * Reason Comments Diabetes Follow-Up Dosage Adjustment In Person (Anticoag Cl inic) Encounter Details Date Type Department Care Team (Late st Contact Info) Description 01/03/2024 3:50 PM EDT Office Visit Pharmacy, [facility] [address] [facility] [place] [place] [address] Pharmacist1, [facility] [address] [facility] [place] [address] Type 1 diabetes mellitus with hemoglobin A1c goal of 7.0%-8.0% ([facility])*; Essential hypertension with goal blood pressure less than 140/90; Class 1 obesity with serious comorbidity and body mass index (BMI) of 32.0 to 32.9 in adult, unspecified obesity type Allergies Active Allergy Reactions Criticality Noted Date [...] needed for Cough. 30 Capsule 08/17/2023 Active Losartan Potassium 50 MG Oral Tablet (Cozaar) TAKE 1 TABLET BY MOUTH IN THE MORNING 90 Tablet 09/20/2023 Active Lovastatin 40 MG Oral TabletIndications:Di abetes mellitus with background retinopathy (HCC),Dyslipidemia, goal LDL below 100 Take 1 tablet by mouth once daily 90 Tablet 09/20/2023 Active FLUoxetine HCl 40 MG Oral Capsule (PROzac)Indications: Major depression, chronic Take 1 capsule by mouth in the morning 90 Capsule 09/20/2023 Active Insulin Aspart 100 UNIT/ML Injection Solution (NovoLOG ReliOn)Indications:D iabetes mellitus with background retinopathy (HCC) INJECT UP TO 50 UNITS ONCE DAILY VIA PUMP DIRECTED 40 mL 1 10/22/2023 Active Dulaglutide 0.75 MG/0.5ML Subcutaneous Solution Pen-injector [...] +. Lipids At goal Cr 1.49. 04/30 [facility] a1c 7.0. Micoralb + 119. 07/31 [...] of this encounter Progress Notes * Shorty Vega RPh - 01/03/2024 3:55 PM EDT Images from the original note were not included. Medication Therapy Disease Management Clinic - Diabetes Management Progress Note Amanda Machuca, identified by name and date of , is a 58 year old female being seen for diabetes management/education. Patient presents for return diabetic visit. DIABETES: Current diabetic medications: Medtronic 780G Insulin Pump (Serial Number: [id number] , Sensor [id number]) Infusion Set: 7 day [place] set Insulin: Novolog Basal Rate: (irrelevant in [...] go below 70 mg/dL? Yes, due to decreased intake after dosing insulin or miscalculating carbs Hyperglycemia symptoms present: none Goal <8 Recent Labs Units 01/03/24 1516 09/27/23 0749 06/21/23 0754 HEMOGLOBIN A1C POCT - [facility] % 6.2* 6.4* 6.5* Recent Labs Units 09/27/23 0858 10/12/22 1345 09/07/22 1411 ESTIMATED GLOMERULAR FILTRATION RATE - [facility] mL/min 47* 46* 30* CREATININE - [facility] mg/dL 1.3* 1.4* 1.9* Lab Results Component Value Date/Time CREATININE - [facility] 1.3 (H) 09/27/2023 08:58 AM CREATININE - [facility] 1.4 (H) 10/12/2022 01:45 PM CREATININE - [facility] 1.9 (H) 09/07/2022 02:11 PM CREATININE - [facility] 1.5 (H) 01/28/2020 03:14 PM CREATININE - [facility] 1.3 (H) 05/31/2019 12:10 PM CREATININE - [facility] 1.3 (H) 05/30/2018 02:28 PM CREATININE CLEARANCE - [facility] 52 (L) 12/12/1998 02:52 PM CREATININE CLEARANCE - [facility] NOT CORRECTED FOR HEIGHT AND WEIGHT 12/12/1998 02:52 PM CREATININE, 24 HOUR URINE - [facility] 1.201 12/12/1998 02:52 PM CREATININE, RANDOM URINE - [facility] 99 09/27/2023 08:58 AM CREATININE, RANDOM URINE - [facility] 189 03/23/2022 [...] 2 - PCV)08/16/2014 CKD PHOS USE SMARTSET 41308 10/23/2016 Colorectal Cancer Screening 12/18/2021 Diabetic Foot Exam 04/08/2022 Depression Monitoring 02/23/2023 COVID-19 Vaccine ( season) 2023 CKD HGB USE SMARTSET 26595 06/29/2023 ASSESSMENT & PLAN: ICD-10-CM 1. Type 1 diabetes mellitus with hemoglobin A1c goal of 7.0%-8.0% (HCC) E10.9 2. Essential hypertension with goal blood pressure less than 140/90 I10 BG Readings - Blood sugars controlled. A1C 6.2 today Medications - Reviewed current regimen, patient is adherent to regimen. Patient wants to start a GLP-1 for weight loss. Based on her BMI of 33 she would benefit from it. Her insulin doses may need gertrude decreased after starting, if approved by insurance. Diet, Exercise, Lifestyle - No significant lifestyle changes since last visit. Discussed with patient today. Patient is agreeable to wear GL4 sensor. Patient aware to contact clinic if any hypoglycemia before next visit. MEDICATION CHANGES: yes, see below; preferred pharmacy: [facility] START: Trulicity 0.75mg weekly for weight loss if approved by PCP/insurance Diabetic Medications: Medtronic 780G Insulin Pump (Serial Number: [id number] , Sensor [id number]) Infusion Set: 7 day [place] set Insulin: Novolog Basal Rate: (irrelevant in automode) 12:00 a.m. - 0.500 units/hr 12 noon - 0.400 units/hr Bolus wizard: on and using ICR: 12:00 a.m - 10 4:00 p.m - 13 ISF: 80 (irrelevant in automode) Active insulin time : 2 hour BG targets 110 HEALTH MAINTENANCE INTERVENTIONS: Labs: Up to Date Immunizations: needs pneumococcal Foot Exam: needs completed Eye Exam: Up to Date Annual Wellness Visit: N/A FOLLOW UP: Return to clinic in 3 months 04/04/2024 Shorty Linder RPh, TIMOTHY Clinical Pharmacist - Gear Coding Machine Operator Medication Therapy Management Clinic 01/03/2024, 3:55 PM documented in this encounter Plan of Treatment Upcoming Encounters Date Type Department Care Team (Late st Contact Info) Description 03/27/2024 1:00 PM EDT Office Visit Family Practice [facility] [address] [place] [address] Berenice Valle CRNP [address] [place] [address] 03/27/2024 1:30 PM EDT Laboratory Laboratory, [facility] [address] [place] [phone] Vinicius Morgan [address] [place] [address] 04/04/2024 9:00 AM EDT Office Visit Pharmacy, [facility] [place] [address] [place] [address] Pharmacist1, [facility] [address] [facility] [place] [address] 04/24/2024 1:00 PM EDT Imaging Radiology [facility] [address] [place] [address] 08/21/2024 1:40 PM EST Office Visit Family Practice [facility] [address] [place] [address] Antonio Cristobal MD [address] [place] [address] Health Maintenance Due Date Last Done Comments HIV Screening 1981 Hepatitis C Screening 1984 Cologuard 10/31/2011 Colonoscopy 10/31/2011 Sigmoidoscopy 10/31/2011 Pneumococcal Vaccine: Pediatrics (0 to 5 Years) and At-Risk Patients (6 to 64 Years) (2 of 2 - PCV) 08/16/2014 08/16/2013 CKD PHOS USE SMARTSET 36555 10/23/2016 10/24/2015 Colorectal Cancer Screening 12/18/2021 Fecal Occult Blood Test 12/18/2021 12/18/2020, 06/15 Diabetic Foot Exam 04/08/2022 04/08/2021, 1 07/30/2017, 05/27/2017, Additional history exists Depression Monitoring 02/23/2023 02/23/2022 COVID-19 Vaccine ( season) 2023 12/27/2020 CKD HGB USE SMARTSET 55879 06/29/202306/29, 05/31/2019, 10/27/2018, Additional history exists Influenza Vaccine (FLU shot) (Season Ended) 2024 07/02/2022, 03/26/2021, 03/14/2020, Additional history exists GFR 03/29/2024 09/27/2023, 09/16, 09/07/2022, Additional history exists Mammogram 05/10/2024 05/10/2023, 1008/2022, 07/31/2019, Additional history exists HbA1c 07/04/2024 01/03/2024, [...] this encounter Medical Devices Implanted Type Area Radiator Mechanic Device Identifier Shelf Expiration Date Model / Serial / Lot Lens Li61ao 13.00mm 20.50 - [id number] - [id number] Implanted:Qty: 1 on 04/21/2023 by Mukul Avitia MD at [facility] Right: Eye [employer] 11/15/2027 [id number] / [id number] / [id number] documented as of this encounter Procedures Procedure Name Priority Date/Time Associated Diagnosis Comments HEMOGLOBIN A1C, POINT OF CARE Routine 01/03/2024 3:16 PM EDT Type 1 diabetes mellitus with hemoglobin A1c goal of 7.0%-8.0% (HCC) Essential hypertension with goal blood pressure less than 140/90 documented in this encounter Results * (ABNORMAL) HEMOGLOBIN A1C, POINT OF CARE (01/03/2024 3:16 PM EDT) Hemoglobin A1c 6.2(H) 4.0 - 5.6 % 01/03/2024 4:06 PM EDT [facility] 56- Blood 01/03/2024 3:16 PM EDT 01/03/2024 4:06 PM EDT Shorty Niyah V, RPh LAB POINT OF CARE TE ST DOCKED DEVICE UNSOLICITED RESULTS [facility] [address] [facility] [address] documented in this encounter Visit Diagnoses Diagnosis Type 1 diabetes mellitus with hemoglobin A1c goal of 7.0%-8.0% (HCC)- Primary Essential hypertension with goal blood pressure less than 140/90 Class 1 obesity with serious comorbidity and body mass index (BMI) of 32.0 to 32.9 in adult, unspecified obesity type documented in this encounter Advance Directives * [...] Power of Attor brittany? No Care Teams Technology Advisor Relationship Specialty Start Date End Date Antonio Cristobal MD [address] [place] [address] PCP - General Family Medicine 10/03/14 documented as of this encounter
--- OUTSIDE RECORDS SUMMARY | 2024-03-02 08:47 | External Medical Summary ---
Author Name Unknown Address Unknown Organization K09[facility] [place] [address] Laboratory Report Ordering Provider Test Date Status LISA MASSEY V 01/03/2024 15:16:50 Final Observation Date Value Abnormality Reference (Units ) Status HbA1C 01/03/2024 15:16:50 6.2 Above high normal 4. 0-5.6 (%) Final Performing Location [facility] [place] [address]
--- OUTSIDE RECORDS SUMMARY | 2024-03-02 08:47 | External Medical Summary ---
Author Name Unknown Address Unknown Organization K[facility] [address] [place] [address] Laboratory Report Ordering Provider Test Date Status MTCristiana,PHARMACIST1 09/27/2023 07:49:52 Final Observation Date Value Abnormality Reference (Units ) Status HbA1C 09/27/2023 07:49:52 6.4 Above high normal 4. 0-5.6 (%) Final Performing Location [facility] [place] [address]
--- OUTSIDE RECORDS SUMMARY | 2024-03-02 08:47 | External Medical Summary | Summary of Care ---
Author Name Unknown Organization [facility] Address [address] [place] [address] Phone [phone] Care Team Providers Care Tray Checker Name Role Phone Antonio Roberts MD Primary Care Provider + Reason for Visit * Reason Comments eRx-Medication Refill Encounter Details Date Type Department Care Team (Late st Contact Info) Description 01/03/2024 Refill Family Practice [facility] [address] [facility] [place] [address] Radha Shah MD [address] [place] [address] Diabetes mellitus with background retinopathy (HCC); Dyslipidemia, goal LDL below 100; Major depression, chronic Allergies Active Allergy Reactions [...] Tab by mouth daily. 100 Tab 3 7 Active Insulin Infusion Pump (MINIMED 670G INSULIN PUMP) LEE Use as directed. 9 Active OneTouch Delica Lancets 33G Use to check blood sugar up to 6 times a day. DX E10.22 600 Each 1 2 Active OneTouch Ultra 2 w/Device Kit Use to test blood sugar up to 6 times a day. DX E10.22 1 Each 2 Active Contour Next Test In Vitro Strip (Glucose Blood) Testing 6 times a day Dx 10.9 600 Strip 3 2 Active Triamcinolone Acetonide 0.1 % External Cream (Aristocort) Apply topically to affected area 2 times a day. Apply to right wrist 2x per day 45 g 3 Active Additional Information Patient not taking.Reported on 04/12/2023 Amphetamine-Dextro amphet ER 20 MG Oral Capsule Extended Release 24 Hour (Adderall XR)Indications:Att ention deficit hyperactivity disorder (ADHD), unspecified ADHD type One pill by mouth once a day. Do not cut, crush or chew 30 Capsule 3 Active Proventil HFA 108 (90 Base) MCG/ACT Inhalation Aerosol SolutionIndication s:Flu-like symptoms Inhale 2 Puffs by mouth every 4 hours as needed for Congestion, Cough or Wheezing. 18 g 4 Active Benzonatate 100 MG Oral CapsuleIndications :Flu-like symptoms Take 2 Capsules by mouth 3 times a day as needed for Cough. 30 Capsule 4 Active Insulin Aspart 100 UNIT/ML Injection Solution (NovoLOG ReliOn)Indications :Diabetes mellitus with background retinopathy (HCC) INJECT UP TO 50 UNITS ONCE DAILY VIA PUMP DIRECTED 40 mL 1 4 Active Lovastatin 40 MG Oral TabletIndications: Diabetes mellitus with background retinopathy (HCC),Dyslipidemia , goal LDL below 100 Take 1 tablet by mouth once daily 90 Tablet 3 4 Active Losartan Potassium 50 MG Oral Tablet (Cozaar) TAKE 1 TABLET BY MOUTH IN THE MORNING 90 Tablet 1 4 Active FLUoxetine HCl 40 MG Oral Capsule (PROzac)Indication s:Major depression, chronic Take 1 capsule by mouth in the morning 90 Capsule 1 4 Active Dulaglutide 0.75 MG/0.5ML Subcutaneous Solution Pen-injector ([facility])Indicat ions:Type 1 diabetes mellitus with hemoglobin A1c goal of 7.0%-8.0% (HCC),Class 1 obesity with serious comorbidity and body mass index (BMI) of 32.0 to 32.9 in adult, unspecified obesity type Inject 0.75 mg under the skin once a week. 2 mL 1 4 Active Losartan Potassium 50 MG Oral Tablet (Cozaar) TAKE 1 TABLET BY MOUTH IN THE MORNING 90 Tablet 4 01/04/20 24 Discontinued Lovastatin 40 MG Oral TabletIndications: Diabetes mellitus with background retinopathy (HCC),Dyslipidemia , goal LDL below 100 Take 1 tablet by mouth once daily 90 Tablet 4 01/04/20 24 Discontinued FLUoxetine HCl 40 MG Oral Capsule (PROzac)Indication s:Major depression, chronic Take 1 capsule by mouth in the morning 90 Capsule 4 01/04/20 24 Discontinued documented as of this encounter (statuses as [...] Cr 1.49. 04/30 [facility] a1c 7.0. Micoralb + 119. 07/31 Labs [...] encounter Miscellaneous Notes * Telephone Encounter - Antonio Roberts MD - 01/04/2024 8:35 AM EDTSigned Prescriptions: Disp Refills Lovastatin 40 MG Oral Tablet 90 Tab*3 Sig: Take 1 tablet by mouth once daily Authorizing Provider: ANTONIO ROBERTS Losartan Potassium 50 MG Oral Tablet (Coza*90 Tab*1 Sig: TAKE 1 TABLET BY MOUTH IN THE MORNING Authorizing Provider: RADHA SHAH Ordering User: DARRELL AZAR FLUoxetine HCl 40 MG Oral Capsule (PROzac) 90 Cap*1 Sig: Take 1 capsule by mouth in the morning Authorizing Provider: RADHA SHAH Ordering User: DARRELL AZAR * Telephone Encounter - Darrell Azar [facility] - 01/04/2024 8:33 AM EDTPending Prescriptions: Disp Refills Lovastatin 40 MG Oral Tablet 90 Tab*0 Sig: Take 1 tablet by mouth once daily Signed Prescriptions: Disp Refills Losartan Potassium 50 MG Oral Tablet (Coza*90 Tab*1 Sig: TAKE 1 TABLET BY MOUTH IN THE MORNING Authorizing Provider: RADHA SHAH Ordering User: DARRELL AZAR FLUoxetine HC l 40 MG Oral Capsule (PROzac) 90 Cap*1 Sig: Take 1 capsule by mouth in the morning Authorizing Provider: RADHA SHAH Ordering User: DARRELL AZAR * Telephone Encounter - Darrell Azar [facility] - 01/04/2024 8:32 AM EDT Overdue for lipid panel. Lab appointment not scheduled until March. Please advise/approve if appropriate. Did you pend patient's preferred pharmacy and medication before forwarding?yes Pharmacy: [facility] [id number] Pending Prescriptions: Disp Refills Lovastatin 40 MG Oral Tablet 90 Tab*0 Sig: Take 1 tablet by mouth once daily Signed Prescriptions: Disp Refills Losartan Potassium 50 MG Oral Tablet (Coza*90 Tab*1 Sig: TAKE 1 TABLET BY MOUTH IN THE MORNING Authorizing Provider: RADHA SHAH Ordering User: DARRELL AZAR FLUoxetine HCl 40 MG Oral Capsule (PROzac) 90 Cap*1 Sig: Take 1 capsule by mouth in the morning Authorizing Provider: RADHA SHAH Ordering User: DARRELL AZAR Last Visit: 04/12/2023 (in office), Visit date not found (telemedicine) Next Visit: 03/27/2024 If no future appointments scheduled, and last appointment is greater than a year ago, please schedule patient for a follow-up appointment Last date the medication was ordered: 09/20/23 Is this request for a controlled substance?No [...] Description 03/27/2024 1:00 PM EDT Office Visit [facility] [address] [place] [address] Berenice Valle CRNP [address] [place] [address] 03/27/2024 1:30 PM EDT Laboratory Laboratory, [facility] [address] [place] [phone] [facility] [address] [place] [place] [address] 04/04/2024 9:00 AM EDT Office Visit Pharmacy, [facility] [address] [facility] [address] Pharmacist1, [facility] [address] [facility] [address] 04/24/2024 1:00 PM EDT [facility] [address] [place] [address] 08/21/2024 1:40 PM EST Office Visit [facility] [address] [place] [address] Antonio Roberts MD [address] [place] [address] Health Maintenance Due Date Last Done Comments HIV Screening 1981 Hepatitis C Screening 1984 Cologuard 10/31/2011 Colonoscopy 10/31/2011 Sigmoidoscopy 10/31/2011 Pneumococcal Vaccine: Pediatrics (0 to 5 Years) and At-Risk Patients (6 to 64 Years) (2 of 2 - PCV) 08/16/2014 08/16/2013 CKD PHOS USE SMARTSET 44927 10/23/2016 10/24/2015 Colorectal Cancer Screening 12/18/2021 Fecal Occult Blood Test 12/18/2021 12/18/2020, 06/15 Diabetic Foot Exam 04/08/2022 04/08/2021, 1 07/30/2017, 05/27/2017, Additional history exists Depression Monitoring 02/23/2023 02/23/2022 COVID-19 Vaccine ( season) 2023 12/27/2020 CKD HGB USE SMARTSET 07170 06/29/202306/29, 05/31/2019, 10/27/2018, Additional history exists Influenza [...] this encounter Medical Devices Implanted Type Area Hedge Trimmer Device Identifier Shelf Expiration Date Model / Serial / Lot Lens Li61ao 13.00mm 20.50 - [id number] - [id number] Implanted:Qty: 1 on 04/21/2023 by Mukul Avitia MD at OR [facility] Right: Eye [employer] 11/15/2027 [id number] / [id number] / [id number] documented as of this encounter Visit Diagnoses Diagnosis Diabetes mellitus with background retinopathy (HCC) Dyslipidemia, goal LDL below 100 Other and unspecified hyperlipidemia Major depression, chronic Major depressive disorder, single [...] Power of Attor brittany? No Care Teams Tray Checker Relationship Specialty Start Date End Date Antonio Roberts MD [address] [place] [address] PCP - General Family Medicine 10/03/14 documented as of this encounter
--- OUTSIDE RECORDS SUMMARY | 2024-03-02 08:47 | External Medical Summary | Summary of Care ---
Author Name Unknown Organization [facility] Address [address] [place] [address] Phone [phone] Care Team Providers Care Check And Transfer Beader Name Role Phone Antonio Cristobal MD Primary Care Provider + Reason for Visit * Reason Comments eRx-Medication Refill Encounter Details Date Type Department Care Team (Late st Contact Info) Description 09/19/2023 Refill Family Practice [facility] [address] [place] [address] Antonio Cristobal MD 132 [place] [address] Diabetes mellitus with background retinopathy (HCC); Dyslipidemia, goal LDL below 100; Major depression, chronic Allergies Active Allergy Reactions Criticality Noted Date Comments Doimnick Inhibitors Cough High 08/25/2009 Penicillins Rash High 08/25/2009 documented as of this encounter (statuses as of 09/20/2023) Medications Medication Sig Dispensed Refills Start Date End Date Status CENTRUM CARB ASSIST PO TABS Take by mouth at bedtime. 0 Active aspirin enteric coated 81 MG TBEC Take 1 Tab by mouth daily. 100 Tab 3 7 Active Insulin Infusion Pump (MINIMED 670G INSULIN PUMP) LEE Use as directed. 0 9 Active OneTouch Delica Lancets 33G Use to check blood sugar up to 6 times a day. DX E10.22 600 Each 1 2 Active OneTouch Ultra 2 w/Device Kit Use to test blood sugar up to 6 times a day. DX E10.22 1 Each 0 2 Active Contour Next Test In Vitro Strip (Glucose Blood) Testing 6 times a day Dx 10.9 600 Strip 3 2 Active Triamcinolone Acetonide 0.1 % External Cream (Aristocort) Apply topically to affected area 2 times a day. Apply to right wrist 2x per day 45 g 0 3 Active Additional Information Patient not taking.Reported on 04/12/2023 Insulin Aspart 100 UNIT/ML Injection Solution (NovoLOG)Indicatio ns:Diabetes mellitus with background retinopathy (HCC) Use with pump as directed up to 50 units daily 40 mL 1 3 Active Amphetamine-Dextro amphet ER 20 MG Oral Capsule Extended Release 24 Hour (Adderall XR)Indications:Att ention deficit hyperactivity disorder (ADHD), unspecified ADHD type One pill by mouth once a day. Do not cut, crush or chew 30 Capsule 0 3 Active Proventil HFA 108 (90 Base) MCG/ACT Inhalation Aerosol SolutionIndication s:Flu-like symptoms Inhale 2 Puffs by mouth every 4 hours as needed for Congestion, Cough or Wheezing. 18 g 0 4 Active Benzonatate 100 MG Oral CapsuleIndications :Flu-like symptoms Take 2 Capsules by mouth 3 times a day as needed for Cough. 30 Capsule 0 4 Active Losartan Potassium 50 MG Oral Tablet (Cozaar) TAKE 1 TABLET BY MOUTH IN THE MORNING 90 Tablet 0 4 Active Lovastatin 40 MG Oral TabletIndications: Diabetes mellitus with background retinopathy (HCC),Dyslipidemia , goal LDL below 100 Take 1 tablet by mouth once daily 90 Tablet 0 4 Active FLUoxetine HCl 40 MG Oral Capsule (PROzac)Indication s:Major depression, chronic Take 1 capsule by mouth in the morning 90 Capsule 0 4 Active Losartan Potassium 50 MG Oral Tablet (Cozaar) Take 1 Tablet by mouth in the morning. 90 Tablet 1 3 09/20/19 24 Discontinued FLUoxetine HCl 40 MG Oral Capsule (PROzac)Indication s:Major depression, chronic Take 1 Capsule by mouth in the morning. 90 Capsule 1 3 09/20/19 24 Discontinued Lovastatin 40 MG Oral TabletIndications: Diabetes mellitus with background retinopathy (HCC),Dyslipidemia , goal LDL below 100 Take 1 tablet by mouth once daily 90 Tablet 0 3 09/20/19 24 Discontinued documented as of this encounter (statuses as of 09/20/2023) Active Problems Problem Noted Date Diagnosed Date [...] +. Lipids At goal Cr 1.49. 04/30 [facility] a1c 7.0. Micoralb + 119. 07/31 Labs scan-Cr 1.3 GFR 50s Javid Endo On insulin pump 10/28 a1c 7.5, + microalb 35 ICD-10 update of inactive term documented as of this encounter (statuses as of 09/20/2023) Resolved Problems Problem Noted Date Diagnosed Date [...] as of this encounter (statuses as of 09/20/2023) Immunizations Name Administration Dates Next Due Covid-19 [...] encounter Miscellaneous Notes * Telephone Encounter - Radha Shah MD - 09/20/2023 6:21 PM ESTSigned Prescriptions: Disp Refills Losartan Potassium 50 MG Oral Tablet (Coza*90 Tab*0 Sig: TAKE 1 TABLET BY MOUTH IN THE MORNING Authorizing Provider: RADHA SHAH Lovastatin 40 MG Oral Tablet 90 Tab*0 Sig: Take 1 tablet by mouth once daily Authorizing Provider: RADHA SHAH FLUoxetine HCl 40 MG Oral Capsule (PROzac) 90 Cap*0 Sig: Sourav e 1 capsule by mouth in the morning Authorizing Provider: RADHA SHAH * Telephone Encounter - Red Nunez [facility] - 09/20/2023 4:36 PM ESTPending Prescriptions: Disp Refills Losartan Potassium 50 MG Oral Tablet 90 Tab*0 Sig: Take 1 Tablet by mouth in the morning. Lovastatin 40 MG Oral Tablet 90 Tab*0 Sig: Take 1 tablet by mouth once daily FLUoxetine HCl 40 MG Oral Capsule 90 Cap*0 Sig: Take 1 Capsule by mouth in the morning. * Telephone Encounter - Paola Fontaine, pharmacy assistant - 09/20/2023 1:53 PM EST Pending Prescriptions: Disp Refills Losartan Potassium 50 MG Oral Tablet 90 Tab*0 Sig: Take 1 Tablet by mouth in the morning. Lovastatin 40 MG Oral Tablet 90 Tab*0 Sig: Take 1 tablet by mouth once daily FLUoxetine HCl 40 MG Oral Capsule 90 Cap*0 Sig: Take 1 Capsule by mouth in the morning. * Telephone Encounter - Paola Fontaine pharmacy assistant - 09/20/2023 1:52 PM EST Did you pend patient's preferred pharmacy and medication before forwarding?yes Pharmacy: [facility] [address] [place] [address] [address] [place] Pending Prescriptions: Disp Refills Losartan Potassium 50 MG Oral Tablet (Coz*90 Tab*0 Sig: TAKE 1 TABLET BY MOUTH IN THE MORNING Lovastatin 40 MG Oral Tablet 90 Tab*0 Sig: Take 1 tablet by mouth once daily FLUoxetine HCl 40 MG Oral Capsule (PROzac*90 Cap*0 Sig: Take 1 capsule by mouth in the morning Last Visit: 04/12/2023 (in office), Visit date not found (telemedicine) Next Visit: Visit date not found If no future appointments scheduled, and last appointment is greater than a year ago, please schedule patient for a follow-up appointment Last date the medication was ordered: 05/17/23, 01/31/23, 05/17/23 Is this request for a controlled substance?No Urine Drug Screen:No results found for this or any previous visit. Patient Phone Numbers Labs: Lab Results Component Value Date/Time CREAT 1.4 (H) 10/12/2022 01:45 PM CREAT 1.5 (H) 01/28/2020 03:14 PM POTASSIUM 5.3 (H) 10/12/2022 01:45 PM POTASSIUM 5.2 (H) 01/28/2020 03:14 PM TSH 1.94 06/21/2016 04:14 PM LDLCALC 94 03/23/2022 05:16 PM LDLCALC 78 05/31/2019 12:10 PM LDLDIRECT NOT APPLICABLE 05/31/2019 12:10 PM LDLDIRECT 101 06/21/2016 04:14 PM ALT 13 11/19/2016 10:09 AM HGBA1C 6.5 (H) 06/21/2023 07:54 AM HGBA1C 7.3 (H) 01/28/2020 03:14 PM documented in this encounter Plan of Treatment Upcoming Encounters Date Type Department Care Team (Late st Contact Info) Description 09/27/2023 8:30 AM EDT Office Visit Pharmacy, [facility] [place] [address] [place] [address] Pharmacist1, [facility] [address] [facility] [place] [address] 04/24/2024 1:00 PM EDT Imaging Radiology [address] [facility] [address] [place] [address] Health Maintenance Due Date Last Done Comments HIV Screening 1980 Hepatitis C Screening 1984 Cologuard 10/31/2011 Colonoscopy 10/31/2011 Sigmoidoscopy 10/31/2011 Pneumococcal Vaccine: Pediatrics (0 to 5 Years) and At-Risk Patients (6 to 64 Years) (2 of 2 - PCV) 08/16/2014 08/16/2013 CKD PHOS USE SMARTSET 02616 10/23/2016 10/24/2015 Colorectal Cancer Screening 12/18/2021 Fecal Occult Blood Test 12/18/2021 12/18/2020, 06/15 Diabetic Foot Exam 04/08/2022 04/08/2021, 1 07/30/2017, 05/27/2017, Additional history exists Depression Screening 02/23/2023 02/23/2022 COVID-19 Vaccine ( season) 2023 12/27/2020 Influenza Vaccine (FLU shot) (#1) 2023 07/02/2022, 03/26/2021, 03/14/2020, Additional history exists Albumin/Creatinine Ratio 03/23/2023 022, 04/08/2021, 05/31/2019, Additional history exists GFR 04/14/2023 10/12/2022, 02/2 07/2022, 06/29/2022, Additional history exists CKD HGB USE SMARTSET 69606 06/29/202306/29, 05/31/2019, 10/27/2018, Additional history exists HbA1c 12/21/2023 06/21/2023, 09/0 07/2022, 11/26/2022, Additional history exists Mammogram 05/10/2024 05/10/2023, 10/0 08/2022, 07/31/2019, Additional history exists Diabetic Eye [...] this encounter Medical Devices Implanted Type Area Solar Sales Associate Device Identifier Shelf Expiration Date Model / Serial / Lot Lens Li61ao 13.00mm 20.50 - [id number] - [id number] Implanted:Qty: 1 on 04/21/2023 by Mukul Avitia MD at OR [facility] Right: Eye [employer] 11/15/2027 [id number] / [id number] / [id number] documented as of this encounter Visit Diagnoses Diagnosis Diabetes mellitus with background retinopathy (HCC) Dyslipidemia, goal LDL below 100 Other and unspecified hyperlipidemia Major depression, chronic Major depressive disorder, single episode, unspecified documented in this encounter Advance Directives Latest Code Status on File Code Status Date Activated Date Inactivated Comments Full Code 04/21/2023 6:44 AM 04/21/2023 12:45 PM This order reflects the patients wishes and were consensually agreed upon. Question Answer Comments Discussion of Advance Directives occurred with: Patient Does the patient have a Living Will? No Does the patient have Health Care Power of Cinnamon Grinder? No Care Teams Check And Transfer Beader Relationship Specialty Start Date End Date Antonio Cristobal MD [address] [place] [address] PCP - General Family Medicine 10/03/14 documented as of this encounter
--- OUTSIDE RECORDS SUMMARY | 2024-03-02 08:47 | External Medical Summary | Summary of Care ---
Author Name Unknown Organization [facility] Address [address] [place] [address] Phone [phone] Care Team Providers Care Coal Drier Operator Name Role Phone Antonio Roberts MD Primary Care Provider + Reason for Visit * Reason Comments eRx-Medication Refill Encounter Details Date Type Department Care Team (Late st Contact Info) Description 10/21/2023 Refill Family Practice [facility] 132 [facility] [address] [place] [address] Antonio Roberts MD 132 [place] [address] Diabetes mellitus with background retinopathy (HCC) Allergies Active Allergy Reactions Criticality Noted Date Comments Dominick Inhibitors Cough High 08/25/2009 Penicillins Rash High 08/25/2009 documented as of this encounter (statuses as of 10/22/2023) Medications Medication Sig Dispensed Refills Start Date [...] the morning 90 Capsule 0 4 Active Insulin Aspart 100 UNIT/ML Injection Solution (NovoLOG ReliOn)Indications :Diabetes mellitus with background retinopathy (HCC) INJECT UP TO 50 UNITS ONCE DAILY VIA PUMP DIRECTED 40 mL 1 4 Active Insulin Aspart 100 UNIT/ML Injection Solution (NovoLOG)Indicatio ns:Diabetes mellitus with background retinopathy (HCC) Use with pump as directed up to 50 units daily 40 mL 1 3 10/22/19 24 Discontinued documented as of this encounter (statuses as of 10/22/2023) Active Problems Problem Noted Date Diagnosed Date [...] +. Lipids At goal Cr 1.49. 04/30 [facility] a1c 7.0. Micoralb + 119. 1 Labs scan-Cr 1.3 GFR 50s Javid Endo On insulin pump 10/28 a1c 7.5, + microalb 35 ICD-10 update of inactive term documented as of this encounter (statuses as of 10/22/2023) Resolved Problems Problem Noted Date Diagnosed Date [...] as of this encounter (statuses as of 10/22/2023) Immunizations Name Administration Dates Next Due Covid-19 [...] Miscellaneous Notes * Telephone Encounter - Antonio Conklin RPh - 10/22/2023 10:34 AM EDT Signed Prescriptions: Disp Refills Insulin Aspart 100 UNIT/ML Injection Solut*40 mL 1 Sig: INJECT UP TO 50 UNITS ONCE DAILY VIA PUMP DIRECTEDAuthorizing Provider: ANTONIO ROBERTS User: ANTONIO CONKLIN documented in this encounter Plan of Treatment Upcoming Encounters Date Type Department Care Team (Late st Contact Info) Description 01/03/2024 3:50 PM EDT Office Visit Pharmacy, [facility] [place] [address] [place] [address] Pharmacist1, [facility] [address] [facility] [place] [address] 04/24/2024 1:00 PM EDT Imaging Radiology [facility] 132 [facility] [address] [place] [id number] Health Maintenance Due Date Last Done Comments HIV Screening 1980 Hepatitis C Screening 1984 Cologuard 10/31/2011 Colonoscopy 10/31/2011 Sigmoidoscopy 10/31/2011 Pneumococcal Vaccine: Pediatrics (0 to 5 Years) and At-Risk Patients (6 to 64 Years) (2 of 2 - PCV) 08/16/2014 08/16/2013 CKD PHOS USE SMARTSET 02744 10/23/2016 10/24/2015 Colorectal Cancer Screening 12/18/2021 Fecal Occult Blood Test 12/18/2021 12/18/2020, 06/15 Diabetic Foot Exam 04/08/2022 04/08/2021, 1 07/30/2017, 05/27/2017, Additional history exists Depression Screening 02/23/2023 02/23/2022 COVID-19 Vaccine ( season) 2023 12/27/2020 CKD HGB USE SMARTSET 15403 06/29/202306/29, 05/31/2019, 10/27/2018, Additional history exists Influenza Vaccine (FLU shot) (Season Ended) 2024 07/02/2022, 03/26/2021, 03/14/2020, Additional history exists GFR 03/29/2024 09/27/2023, 09/16, 09/07/2022, Additional history exists HbA1c 03/29/2024 09/27/2023, 1211/2022, 03/18/2023, Additional history exists Mammogram 05/10/2024 05/10/2023, [...] this encounter Medical Devices Implanted Type Area Instrument Assembly Supervisor Device Identifier Shelf Expiration Date Model / Serial / Lot Lens Li61ao 13.00mm 20.50 - [id number] - [id number] Implanted:Qty: 1 on 04/21/2023 by Mukul Avitia MD at OR [facility] Right: Eye [employer] 11/15/2027 [id number] / [id number] / [id number] documented as of this encounter Visit Diagnoses Diagnosis Diabetes mellitus with background retinopathy (HCC) documented in this encounter Advance Directives [...] the patient have Health Care Power of Reimbursement Analyst? No Care Teams Coal Drier Operator Relationship Specialty Start Date End Date Antonio Roberts MD 132 [facility] [place] [address] PCP - General Family Medicine 10/03/14 documented as of this encounter
--- OUTSIDE RECORDS SUMMARY | 2024-03-02 08:47 | External Medical Summary ---
Author Name Unknown Address Unknown Organization K09:[facility] [place] [address] Laboratory Report Ordering Provider Test Date Status JEROME HARMON 09/27/2023 08:58:24 Final Observation Date Value Abnormality Reference (Units ) Status BUN 09/27/2023 08:58:24 26 Above high normal 6-20 (mg/dL) Final Creatinine 09/27/2023 08:58:24 1.3 Above high normal 0.5-1.0 (mg/dL) Final Glomerular filtration rate/1.73 sq M.predicted [Volume Rate/Area] in Serum, Plasma or Blood by Creatinine-based formula (CKD-EPI) 09/27/2023 08:58:24 47 Below low normal >=60 (mL/min) Final eGFR is calculated based on the CKD-EPI 2020 equation SODIUM 09/27/2023 08:58:24 140 135-146 (m mol/L) Final Potassium 09/27/2023 08:58:24 5.0 3.5-5.1 (m mol/L) Final Cl 09/27/2023 08:58:24 102 98-107 (mm ol/L) Final CO2 09/27/2023 08:58:24 27 22-32 (mmo l/L) Final Anion gap 09/27/2023 08:58:24 11 7-15 (mmol /L) Final Glucose 09/27/2023 08:58:24 107 70-120 (mg /dL) Final Calcium 09/27/2023 08:58:24 10.0 8.4-10.2 ( mg/dL) Final Performing Location [facility] [address]
[2024-03-02] MEDS: INSULIN, Rapid-Acting PUMP SCH (08:56)
[2024-03-02] MEDS: oxyCODONE/ACETAMINOPHEN 5mg/325mg TAB PO PRN ×2 (09:05→21:06)
--- NOTE | 2024-03-02 10:35 | Surgery Progress Note ---
Date of Service March 02, 2024 Assessment & Plan (1) Acute appendicitis: Plan: lap appy late last night advance diet and activity possible home later today Admission and Anticipated Discharge Date Admission Date: March 02, 2024 Subjective took a little po pain controlled OK OOB once Review of Systems Constitutional: no fever and no chills Respiratory: no cough and no dyspnea Cardiovascular: no chest pain Gastrointestinal: + abdominal pain; no nausea, no vomiting and no change in bowel habits Genitourinary: no dysuria Neurologic: no localized weakness and no generalized weakness Psychiatric: no behavioral changes Physical Exam Constitutional: WD/WN, vitals as above Neck: trachea midline Respiratory: normal respiratory effort, lungs clear to auscultation Cardiovascular: RRR, no murmur, no edema Gastrointestinal (Abdomen): Inspection/Auscultation: abdomen normal to inspection, normal bowel sounds and + abdominal surgical incision; abdomen not distended Percussion/Palpation: + abdomen tender and abdomen soft; no gu arding and abdomen not rigid Musculoskeletal: Head/Neck/Chest: normocephalic and head atraumatic Results & Data Vital Signs (Past 12 Hours) Vital Signs Temp Pulse Pulse Resp BP Pulse Ox O2 Del Method 03/02/24 07:52 101 H 16 103/66 95 Room Air 03/02/24 07:43 102 H 16 105/65 95 Room Air 03/02/24 07:30 37.4 C 100 H 16 107/65 98 Nasal Cannula 03/02/24 07:12 105 H 100/63 03/02/24 07:00 104 H 96/57 L 03/02/24 06:59 99 H 96/58 L 03/02/24 06:49 99 H 88/50 L 03/02/24 06:42 94/55 L 03/02/24 06:41 102 H 89/52 L 03/02/24 06:29 94/58 L 03/02/24 06:06 101 H 81/47 L 03/02/24 05:44 81/51 L 03/02/24 05:30 77/47 L 03/02/24 05:15 74/41 L 03/02/24 04:35 Nasal Cannula 03/02/24 04:35 36.6 C 91 H 13 80/50 L 95 Nasal Cannula 03/02/24 04:20 36.3 C L 95 H 16 93/51 L 95 Nasal Cannula 03/02/24 04:10 94 H 16 103/63 95 Nasal Cannula 03/02/24 04:00 36.3 C L 95 H 17 115/57 L 97 Nasal Cannula 03/02/24 03:50 36.2 C L 95 H 18 97/52 L 98 Nasal Cannula 03/02/24 03:40 36.2 C L 92 H 16 93/47 L 98 Nasal Cannula 03/02/24 03:30 36.2 C L 93 H 12 87/49 L 96 Nasal Cannula 03/02/24 03:20 36.2 C L 91 H 12 89/46 L 94 Oxymask 03/02/24 03:10 36.1 C L 92 H 10 L 89/54 L 95 Oxymask 03/02/24 03:00 36.1 C L 88 10 L 116/58 L 93 Room Air 03/02/24 01:18 Nasal Cannula O2 Flow Rate 03/02/24 07:52 03/02/24 07:43 03/02/24 07:30 2 03/02/24 07:12 03/02/24 07:00 03/02/24 06:59 03/02/24 06:49 03/02/24 06:42 03/02/24 06:41 03/02/24 06:29 03/02/24 06:06 03/02/24 05:44 03/02/24 05:30 03/02/24 05:15 03/02/24 04:35 2 03/02/24 04:35 03/02/24 04:20 2 03/02/24 04:10 2 03/02/24 04:00 2 03/02/24 03:50 2 03/02/24 03:40 2 03/02/24 03:30 2 03/02/24 03:20 4 03/02/24 03:10 4 03/02/24 03:00 03/02/24 01:18 3 (1) Acute appendicitis Acute appendicitis type: with localized peritonitis Appendicitis abscess presence: without abscess Appendicitis gangrene presence: unspecified whether gangrene present Appendicitis perforation presence: without perforation Qualified Code(s): K35.30 - Acute appendicitis with localized peritonitis, without perforation or gangrene
[2024-03-02] MEDS ORDERED: ACETAMINOPHEN 325 MG TAB PO PRN (12:39)
[2024-03-02] MEDS: ENOXAPARIN INJ 40 MG/0.4 ML SYR SQ SCH (13:24)
[2024-03-02] MEDS: KETOROLAC 30 MG/ML VIAL IV PRN (19:36)
[2024-03-02] MEDS: FLUoxetine HCL 20 MG CAP PO SCH (21:05)
[2024-03-02] MEDS: LOVASTATIN 20 MG TAB PO SCH (21:06)
[2024-03-03] MEDS: ONDANSETRON INJ 2 MG/ML 2 ML VIAL IV PRN (00:42)
[2024-03-03] MEDS: MoRPHine SULFATE 2 MG/ML CARP IV PRN (00:42)
[2024-03-03] MEDS: diphenhydrAMINE Capsule 25 MG CAP PO PRN (01:59)
[2024-03-03] MEDS: ALBUT/IPRATROP 3MG/0.5MG NEB 3 ML VIAL NEB STA (04:24)
--- NOTE | 2024-03-03 05:52 | Surgery Progress Note ---
Date of Service March 03, 2024 Assessment & Plan (1) Acute appendicitis: Plan: Status post laparoscopic appendectomy on 03/02/2024 (postop day #1) Patient was initially noted to be hypotensive following surgery which responded to intravenous fluids. She is currently normotensive and is not tachycardic. (IV fluids have since been discontinued) Continue diet as tolerated Continue analgesics Continue antiemetics Check a.m. labs when available Patient is currently on oxygen which was provided secondary to shortness of breath. Checks x-ray earlier this morning showed bilateral basilar atelectasis -Wean oxygen as able Encourage use of incentive spirometry as well as coughing and deep breathing -Will increase mobilization this morning Discharge home today will be dependent on the ability to wean patient off oxygen Admission and Anticipated Discharge Date Admission Date: March 02, 2024 Supervising Physician Co-Signing Physician Notes Discharge later today as long as she does not require any oxygen Encourage her incentive spirometry and ambulation Her labs are improved this morning as is her hypotension Subjective Patient is currently resting comfortably in bed and notes she feels better than she initially did after her surgery. She does note abdominal pain near her surgical incisions. She notes that she tolerated solid food last evening without nausea or vomiting or worsening abdominal pain. She said that she is passing flatus but has not had a bowel movement since surgery. The patient did report an episode of shortness of breath last night. The medical service provided with a breathing treatment and she noted improvement with this modality. Physical Exam Respiratory: Lungs are overall clear to auscultation without rales, rhonchi, or wheezing. Breath sounds are slightly decreased at the bases. There is no use of accessory muscles to aid in respiration. Gastrointestinal (Abdomen): Abdomen is soft and has minimal distention. There is bruising around patient's surgical incisions but they are clean, dry, and intact. Patient has pain with palpation near her surgical incisions. Results & Data Vital Signs (Past 12 Hours) Vital Signs Temp Pulse Resp BP Pulse Ox O2 Del Method O2 Flow Rate 03/03/24 04:27 83 18 93 Nasal Cannula 2 03/03/24 03:57 18 112/68 94 Nasal Cannula 2 03/03/24 01:54 37 C 93 Nasal Cannula 2 03/03/24 01:51 79 16 107/68 83 L Room Air 03/03/24 00:40 96/59 L 08/16/24 23:04 37.1 C 80 18 93/55 L 94 Room Air 03/02/24 19:29 37.3 C 79 18 123/78 96 Room Air PG Care Time/CCT Total # of Minutes Spent Total Time Spent with Patient: Total time spent is greater than 50% in coordination of care (as documented) at patient's floor/unit and/or counseling patient: Coding Level of Care Code 57237 Post Operative Follow-Up Diagnoses Acute appendicitis K35.30 Acute appendicitis type: with localized peritonitis Appendicitis abscess presence: without abscess Appendicitis gangrene presence: unspecified whether gangrene present Appendicitis perforation presence: without perforation (1) Acute appendicitis Acute appendicitis type: with localized peritonitis Appendicitis abscess presence: without abscess Appendicitis gangrene presence: unspecified whether gangrene present Appendicitis perforation presence: without perforation Qualified Code(s): K35.30 - Acute appendicitis with localized peritonitis, without perforation or gangrene
[2024-03-03 06:13] LABS: Basophils # (auto) 0.03 K/uL (0.00-0.20); Basophils % (auto) 0.3 %; Hematocrit (blood only) 28.2 % (37.0-47.0); Immature Granulocytes # (auto) 0.04 K/uL (0.01-0.20); Immature Granulocytes % (auto) 0.4 %; Lymphocytes # (auto) 1.99 K/uL (1.20-3.40); Lymphocytes % (auto) 19.4 %; Mean Corpuscular Hemoglobin 31.4 pg (25.0-34.0); Mean Corpuscular Hgb Conc 31.9 g/dL (32.0-36.0); Mean Corpuscular Volume 98.3 fL (80.0-100.0); Mean Platelet Volume 10.4 fL (9.4-12.4); Monocytes # (auto) 0.53 K/uL (0.11-0.59); Monocytes % (auto) 5.2 %; Neutrophils # (auto) 7.57 K/uL (1.40-6.50); Neutrophils % (auto) 73.7 %; Platelet Count 230 K/uL (130-400); RDW Coefficient of Variation 12.3 % (11.5-14.5); RDW Standard Deviation 44.2 fL (36.4-46.3); Red Blood Count 2.87 M/uL (4.20-5.40); White Blood Count 10.26 K/ul (4.8-10.8)
[2024-03-03 06:26] LABS: BUN Creatinine Ratio 11.5 (10-20); Calcium 7.4 mg/dl (8.6-10.3); Creatinine Clr Calc Pharmacy 30.8 ml/min; Est GFR (African American) 35.1 ml/min; Est GFR (Non-African American) 30.3 ml/min; Magnesium 2.2 mg/dl (1.7-2.4); Potassium 4.5 mmol/L (3.5-5.1)
[2024-03-03 07:17] VITALS: BP 110/70; TEMP 99.5
--- NOTE | 2024-03-03 08:28 | XRay Report ---
SINGLE VIEW CHEST CLINICAL HISTORY: Dyspnea FINDINGS: An AP, portable, upright chest radiograph is compared to study dated 07/08/2021 and correla chuyita with abdominal CT dated 03/01/2024. The examination is degraded by portable technique and patient rotation. The cardiomediastinal silhouette is unremarkable. There is mild bibasilar atelectasis. The lungs and pleural spaces are otherwise clear. No pneumothorax is seen. The bony thorax is grossly in tact. IMPRESSION: No active disease in the chest. ACT 112: Negative or not required by law. Electronically signed by: Km Henry M.D. 03/03/2024 8:27 AM
[2024-03-03 10:13] VITALS: RESP 20; O2SAT 93
--- NOTE | 2024-03-03 10:43 | Hospitalist Progress Note ---
Date of Service March 03, 2024 Assessment & Plan (1) Acute appendicitis: (2) Acute kidney injury: (3) UTI due to Klebsiella species: Plan Acute appendicitis s/p lap appendectomy 03/02- further management including pain, diet, activities, DVT ppx and disposition per primary surgical team. Recommend avoiding NSAIDs given her elevated Cr/CKD. H and H overall stable similar to yesterday. UTI- symptomatic. Urine clx with Klebsiella pansensitive. She did fine with zosyn couple days ago. Started on ceftriaxone today. Will discharge on cefdinir to complete antibiotic course. RO on CKD3- likely related to hemodynamic instability in perioperative period along with use of NSAIDs. Cr trend noted. Baseline Cr around 1.3-1.4, now at 1.53->1.59->1.82. I have discontinued toradol this morning. Recommend adequate hydration and avoiding NSAIDs completely. Will recheck BMP in am if still here, otherwise recommend repeat BMP in the next 3-4 days. Also recommended to hold losartan until BP rebounds and RO resolves. She will continue to measure her BP at home. Postop hypotension- resolved. BP stable now. Losartan on hold as above. DM 1 on insulin pump- well-controlled, recent hemoglobin A1c 6.2 last December 2023. Continue insulin pump Hypoxia- resolved, now on room air. CXR with mild bibasilar atelectasia. Continue diligent use of IS. DVT ppx- per primary team Dispo- per primary team Time spent- approx 35 mins Admission and Anticipated Discharge Date Admission Date: March 02, 2024 Subjective Patient was seen and examined at bedside. Feels better today, still with pain but improved with percocet. States she still has strong smelly urine and concerned about UTI. Urine clx shows Klebsiella. Tolerating diet without issues. No N/V. Passing gas. Voiding without issues. No BM yet. No dizziness. She wants to go home today. Discussed in detail about her creatinine, need to avoid NSAIDs, adequate hydration and OP follow up with PCP with repeat BMP in the next 3-4 days. Also discussed about holding losartan until BP improves and RO resolves. She does have BP machine at home and will continue to check her BP. Review of Systems Review of Systems: All systems reviewed & are unremarkable except as noted in Subjective Physical Exam Physical Exam: General: Lying comfortably in bed, not in distress, on room air HEENT: EOMI, HARVEY, MMM Chest: Clear breath sounds bilaterally, no wheezes or crackles CVS: Regular rate and rhythm, normal heart sounds, no murmur Abdomen: Soft, expected incisional tenderness, not distended, normal bowel sounds. Incision site clean dry intact with some echhymoses Neuro: Awake, alert, oriented, conversing well, non focal Extremities: No cyanosis, clubbing or edema Results & Data Results & Data Vital Signs (Past 12 Hours) Vital Signs Temp Pulse Resp BP Pulse Ox O2 Del Method O2 Flow Rate 03/03/24 10:13 20 93 Room Air 03/03/24 07:30 Nasal Cannula 2 03/03/24 07:16 37.5 C 79 19 110/70 98 Nasal Cannula 3 03/03/24 04:27 83 18 93 Nasal Cannula 2 03/03/24 03:57 18 112/68 94 Nasal Cannula 2 03/03/24 01:54 37 C 93 Nasal Cannula 2 03/03/24 01:51 79 16 107/68 83 L Room Air 03/03/24 00:40 96/59 L 03/02/24 23:04 37.1 C 80 18 93/55 L 94 Room Air Laboratory Results Short CBC 03/03/24 Range/Units 05:20 WBC 10.26 (4.8-10.8) K/ul Hgb 9.0 L (12.0-16.0) g/dl Hct 28.2 L (37.0-47.0) % Plt Count 230 (130-400) K/uL BMP 03/03/24 05:20 Sodium 139 Potassium 4.5 Chloride 113 H Carbon Dioxide 22 BUN 21 Creatinine 1.82 H Glucose 108 H Calcium 7.4 L (1) Acute appendicitis Acute appendicitis type: with localized peritonitis Appendicitis abscess presence: without abscess Appendicitis gangrene presence: unspecified whether gangrene present Appendicitis perforation presence: without perforation Qualified Code(s): K35.30 - Acute appendicitis with localized peritonitis, without perforation or gangrene
[2024-03-03] MEDS: cefTRIAXone SODIUM 2,000 MG/50 ML BAG IV STA (11:44)
[2024-03-03 13:37] VITALS: PULSE 102
[2024-03-04] MEDS ORDERED: CEFDINIR 300 MG CAP PO SCH (09:00)
--- NOTE | 2024-03-05 09:06 | Discharge Summary ---
Date of Service March 05, 2024 Admission HPI Per Admitting Provider 58-year-old woman presents with a 1 week history of feeling ill and a 1 day history of severe right-sided abdominal pain associated with nausea and vomiting. This started at 3 PM today. She denies fevers or chills. She denies changes in bowel habits. CT scan demonstrates acute appendicitis. Principal Diagnosis acute appendicitis Discharge Data Allergies Allergy/AdvReac Type Severity Reaction Status Date / Time CHAPARRO Inhibitors Allergy Intermediate cough Verified 03/01/24 23:34 Penicillins Allergy Intermediate rash Verified 03/01/24 23:34 Consultations 03/02/24 04:42 Consult Hospitalist Routine Procedures Performed Operation Date: 03/02/24 01:30 Actual Procedures p Laparoscopic Appendectomy(Not Applicable) - Slick Fernandez MD Ordered Studies 03/01/24 20:02 CT abd pelvis IV con only Stat Hospital Course (1) Acute appendicitis: Patient taken to operating room for laparoscopic appendectomy by Dr. Slick Fernandez on 03/02/2024. Patient found to have acute appendicitis without perforation or abscess. Patient tolerated procedure without difficulty. Transferred to med/surg floor for postoperative care. Diet advanced as tolerated, activity as tolerated, pain management and antiemetics as needed. She was hypotensive postop with systolic bp in 80's in which IV fluids were administered and Losartan was held. BP responded to IV fluids with systolic in the low 100's. Her hemoglobin was 9.5 from 12 but asymptomatic from hypotensive standpoint. IV fluids were continued as well as IV antibiotics. She was kept for observation overnight due to hypotension. Diet was advanced and tolerated well. Pain was controlled. She developed some hypoxia in which O2 was given via nasal cannula and breathing treatment. CXR showed atelectasis . Incentive spirometry use and hypoxia resolved on POD # 1. Patients blood pressure and hemoglobin remained stable on POD # 1. She was discharged home in stable condition. (2) UTI due to Klebsiella species: given cefdinir to complete antibiotic course (3) Acute kidney injury: RO on CKD3- likely related to hemodynamic instability in perioperative period along with use of NSAIDs. Cr trend noted. Baseline Cr around 1.3-1.4, now at 1.53->1.59->1.82. Toradol was discontinued. repeat BMP in the next 3-4 days. Also recommended to hold losartan until BP rebounds and RO resolves. She will continue to measure her BP at home. Total Time Total Time Spent Total Time Spent (In Minutes): 30 Total Time Includes: Examination of the Patient, Discharge Planning, Medication Reconciliation and Communication With Other Providers Discharge Plan Discharge Items Patient Disposition: Home - Self-Care Reason For Visit: POSTOP APPENDECTOMY Discharge Diagnosis: Acute appendicitis Activity: Per Instructions section Non-emergency contact: Primary Care Provider and Surgeon Call non-emergency contact if: you have any medication questions, your pain is not controlled, your pain is worsening, you have a fever, your temperature is above 101, your wound has increased redness, your wound has increased drainage and your wound pain has increased Follow-up/Referrals: Slick Fernandez MD [Physician] - Antonio Cristobal MD [Primary Care Provider] - Diet: Regular Addtl Attending Provider Instructions: Post-Surgical ~Discharge Instructions Activity Recommendations: - lifting limitation: (20 pounds for 2-3 weeks), - exercise/sex/sports limit: (nonstrenuous for 2 weeks), - driving or machine use limit: (none for 1 week or until pain free and no longer taking narcotic pain medication), - Shower/bathe limit: (may shower beginning tomorrow, no submerging incisions underwater for 2 weeks) Diet: - Resume previous diet SPECIAL CARE INSTRUCTIONS: - May shower in 24 hours. Let water run over area and pat dry. - Leave surgical glue on incisions, this will fall off on its own. Do not pick at it at this can cause infection - Call the surgeon's office with any questions or concerns - - (ex. temperature higher than 101 degrees F, excessive bleeding or pain). MEDICATIONS: - Resume previous medications unless instructed otherwise by your surgeon. - May take extra strength Tylenol as needed for mild to moderate pain -650 mg Tylenol every 6 hours as needed - Percocet 1 every 6 hours, as needed for moderate to severe pain - Recommend daily stool softener (Colace) while taking narcotic pain medication to prevent constipation or straining. drink plenty of water daily. FOLLOW UP VISIT: - If not already scheduled, please call the office to schedule a two week follow-up appointment. Office number Pending Studies at Discharge: Yes (appendix pathology will be reviewed at postop visit) Stand-Alone Forms: [facility], Smoking Cessation Medications and DC Order Prescriptions: New oxycodone-acetaminophen 5-325 mg tablet 1 tab PO Q6H PRN (Reason: pain) Qty: 10 0RF cefdinir 300 mg Capsule 300 mg PO BID 5 Days Qty: 10 0RF Rx Instructions: Start from tomorrow morning 03/04 Continued fluoxetine 40 mg capsule 40 mg PO QPM ondansetron HCl 4 mg tablet 4 mg PO Q8 PRN (Reason: Nausea) lovastatin 40 mg tablet 40 mg PO QPM aspirin 81 mg Tablet,Delayed Release (Dr/Ec) 81 mg PO QPM dextroamphetamine-amphetamine 20 mg capsule,extended release 24hr 20 mg PO DAILY PRN (Reason: ..) insulin aspart U-100 [Novolog U-100 Insulin aspart] 100 unit/mL solution 0 unit subcut DIRECTED Rx Instructions: VIA PUMP albuterol sulfate 90 mcg/actuation HFA aerosol inhaler 2 puff INHALATION Q4 PRN (Reason: .COUGH, WHEEZING) Centrum Complete 18-400 mg-mcg Tablet 1 tab PO DAILY Ozempic 1 mg/dose (4 mg/3 mL) pen injector 1 mg SUBCUT .QFRIDAY Held losartan 50 mg tablet 50 mg PO QPM Hold Instructions: Resume on 03/07/24. Until BP rebounds and RO resolves or cleared by PCP Discharge Orders: Discharge Order (Routine); Ordered 03/03/24 Ordered By: [place]/Other Patient Handouts: Managing Type 1 Diabetes Admission Data Admit Date/Time: 03/02/24 02:54 Attending Provider: Slick Fernandez Admit Provider: Slick Fernandez Primary Care Provider: Antonio Cristobal Other Providers: Shan Oreilly Other Interventions: Discharge Summary Assessment (RN) Last Done: 03/03/24 13:36
== END 2024-03-03 13:49 | disposition home or self-care (01) ==
LOC: ED 19:42 → 3E 03-02 01:18 → OR 03-02 01:18

== ENCOUNTER 2024-03-05 12:35 | Inpatient (IN) ==
--- NOTE | 2024-03-05 13:37 | Emergency Department Note ---
Impression & Plan Acute respiratory failure with hypoxia, Sepsis, Acute renal failure, Non-ST elevation WI (NSTEMI), Right ventricular dysfunction, Type 1 diabetes mellitus ED Provider Note NAME: PASHA CARVER AGE: 58 SEX: F : 1965 ARRIVES VIA: Walk-In INFORMANT: Patient ED PROVIDER(S): Lawson Jimenez MD CHIEF COMPLAINT: nausea, vomiting, low blood pressure PLAN: Disposition: Admit MEDICAL DECISION MAKING: The patient is a pleasant 58-year-old woman with a past medical history of type 1 diabetes, CKD who presents to emergency department via walk-in clinic by her for evaluation of intractable nausea and vomiting and low blood pressure at home after being admitted to this facility for appendectomy last week. Per records the patient then have have transient low oxygen following her procedure but following incentive spirometry her oxygenation improved and was on room air. Her chest x-ray demonstrated atelectasis. However, since being home the patient reports increasing nausea and vomiting where she has had poor oral intake. She denies any chest pain or shortness of breath. She reports she was discharged on cefdinir, antibiotic for treatment of a UTI. She has had 2 doses of this subsequently. She reports her blood sugars have been stable on her insulin pump since her discharge. Patient reports diagnosis of sleep apnea for some time but were CPAP was recommended however she has never obtained this. On evaluation the patient is ill-appearing but no acute distress, afebrile with heart rate in the 130s and blood pressure in the 70s/50s on presentation to triage subsequently improving with IV fluid hydration. O2 saturation low 90s on room air but then did require 2L NC for O2 saturation of 88%. Patient exhibits dry mucous membranes but does have mild lower extremity edema and anasarca in the setting of her surgery. EKG demonstrates normal sinus rhythm with right bundle branch block without overt ST elevation though with T wave inversions inferiorly and anteriorly. Most recent EKG in the electronic record is from 2020 and has significantly changed. Chest x-ray demonstrates interval development of small bilateral pleural effusions and bibasilar densities which are better characterized on subsequent CT imaging. WBC 12K with neutrophilia but no left shift. H/H improved from prior postoperative value. Platelets within normal limits. Chemistry demonstrates acute renal failure with creatinine of 3.3 with BUN 34 worsening from discharge value 1.8. Bicarbonate is 20 with normal anion gap and also DKA not likely. Potassium is 5.2. Electrolytes otherwise unremarkable. AST is mildly elevated at 70, nonspecific LFTs otherwise normal. Reviewed with patient's lipase is not elevated. INR is normal at 1.1. Initial high-sensitivity troponin was elevated at 2400 with delta 2-hour high-sensitivity troponin increased to 3100. Patient was reassessed and was certain that she had not experienced any chest pain today nor did she following her surgery. She does describe having symptoms of indigestion in the week leading up to her presentation to the emergency department and diagnosis with appendicitis. Given the patient's tachycardia, hypotension and low O2 saturation in the setting of recent surgery as well as elevated troponin need to exclude acute PE is indicated despite patient's acute renal failure. This was reviewed with the patient. CTA of the chest and CT of abdomen pelvis were obtained. CT of the chest was negative for PE. Note is made of cardiomegaly with evidence of volume overload/congestive change. There is right greater than left pleural effusions with dependent consolidation. There is small volume upper abdominal ascites. Interval appendectomy is described without loculated fluid collections to suggest abscess. Further description of hypervolemia with periportal edema, body wall edema and small amount ascites is described. Similarly, pericholecystic fluid with periportal and peripancreatic edema is present in the setting of non-elevated lipase and unremarkable LFTs. Mild bladder wall thickening is also described. Subsequent, I did perform a limited bedside cardiac ultrasound which demonstrated RV dysfunction. Procalcitonin was elevated and so blood cultures obtained and empiric treatment with cefepime and Flagyl was initiated. Patient did receive a total of 2 L of normal saline, >30cc/kg of IBW. Additional volume with caution due to component of CHF/hypervolemia. Patient was also ordered for full dose aspirin given the patient's elevated troponin. Case was discussed with Dr. Crespo, [facility] hospitalist, who will evaluate the patient for admission. Case discussed with Dr. Hoff, [facility] cardiology on-call. Appreciate consultation recommendations. Agrees with continued management of sepsis and acute renal failure as well as aspirin and heparin at this time given the patient's elevated troponin, EKG and RV dysfunction. Given the patient has denied and currently denies any chest pain and no clear ST elevation no indication for emergent catheterization at this time. Admitting team updated. Further management per admitting team. Triage Nursing notes reviewed and agree them. Prior/external medical records reviewed Vital Signs: reviewed Differential diagnosis: Sepsis, UTI, pneumonia, metabolic, electrolyte abnormalities, cardiac sources, intracerebral event, toxicologic, neurologic, as well as other pathologies. ER treatment provided: See below. Diagnostics interpreted by me: ECG: Normal sinus rhythm with right bundle branch block, 62 bpm, no overt ST elevation though with T wave inversions inferiorly and anteriorly. QTc 464, QRS 132. Cardiac Monitoring: An order for continuous cardiac monitoring was placed and demonstrated normal sinus rhythm with right bundle branch block, 62 bpm. Laboratory studies: See below Imaging studies: See below Consultation(s): Dr. Hoff, [facility] cardiology on-call Dr. Crespo, [facility] hospitalist. HPI: The patient is a pleasant 58-year-old woman with a past medical history of type 1 diabetes, CKD who presents to emergency department via walk-in clinic by her for evaluation of intractable nausea and vomiting and low blood pressure at home after being admitted to this facility for appendectomy last week. Per records the patient then have have transient low oxygen following her procedure but following incentive spirometry her oxygenation improved and was on room air. Her chest x-ray demonstrated atelectasis. However, since being home the patient reports increasing nausea and vomiting where she has had poor oral intake. She denies any chest pain or shortness of breath. She reports she was discharged on cefdinir, antibiotic for treatment of a UTI. She has had 2 doses of this subsequently. She reports her blood sugars have been stable on her insulin pump since her discharge. Patient reports diagnosis of sleep apnea for some time but were CPAP was recommended however she has never obtained this. ROS: See above HPI for pertinent positives & negatives. A total of 10 systems reviewed and were otherwise negative. VITALS:See Below PHYSICAL EXAMINATION: GENERAL: Awake, alert, ill-appearing, in no distress, BMI 34.2. HENT: Normocephalic, atraumatic. Oropharynx with dry mucous membranes and otherwise unremarkable. EYES: Normal conjunctiva. Sclera non-icteric. NECK: Supple. No nuchal rigidity. FROM. No JVD. RESPIRATORY: Diminished breath sounds of bilateral mid to lower lung martin. CARDIAC: Tachycardic rate, normal rhythm. Extremities warm and well perfused. Pulses equal. ABDOMEN: Soft, non-distended. Mild anasarca. Generalized abdominal discomfort appropriate for postoperative status with postoperative port sites clean dry and intact. MUSCULOSKELETAL: Chest examination reveals no tenderness. The back is symmetrical on inspection without obvious abnormality. There is no CVA tenderness to palpation. No joint edema. LOWER EXTREMITIES: Calves are equal size bilaterally and non-tender. Mild BLE edema. No discoloration. NEURO: Normal sensorium. No sensory or motor deficits noted. SKIN: No rash or jaundice noted. ED COURSE: Critical Care: I have personally spent greater than 75 minutes of critical care time in the direct management of this patient. This includes bedside care, interpretation of diagnostic studies, and testing, discussion with consultants, patient, and family members, and other required patient management activities. This 75 minutes is in excess of all separately billable procedures. Lawson Jimenez MD Past Med/Surg History Problem List Type 1 diabetes mellitus (Acute) Right ventricular dysfunction (Acute) Non-ST elevation WI (NSTEMI) (Acute) Acute respiratory failure with hypoxia (Acute) Acute renal failure (Acute) Sepsis (Acute) UTI due to Klebsiella species Acute kidney injury Acute appendicitis (Acute) COVID-19 (Acute) Neck muscle spasm (Acute) Intractable pain (Acute) Alcoholic intoxication (Acute) Encounter for medication refill (Acute) Encounter for medication refill (Acute) Medical History Cervical radiculopathy DM (diabetes mellitus), type 1 Surgical History Hx of eye surgery History of female sterilization History of carpal tunnel surgery Social History Smoking Status: Never smoker Second Hand Exposure: No; Do You Dip or Chew Tobacco: No; Hx Alcohol Use: Yes Alcohol type: wine Hx Substance Use: No Preferred Language: Chinese Communication Ability: Effective Protective Services Social Worker Required: No Beliefs That Will Affect Care: None Current Living Situation: Spouse Feels Safe at Home: Yes Assistive Devices: None Allergies Allergies Allergy/AdvReac Type Severity Reaction Status Date / Time CHAPARRO Inhibitors Allergy Intermediate cough Verified 03/01/24 23:34 Penicillins Allergy Intermediate rash Verified 03/01/24 23:34 Home Meds Home Medications Medication Instructions Recorded Confirmed albuterol sulfate 90 mcg/actuation 2 puff inhalation Q4 PRN .COUGH, 03/01/24 03/05/24 aerosol inhaler WHEEZING aspirin 81 mg tablet,delayed 81 mg PO QPM 03/01/24 03/05/24 release dextroamphetamine-amphetamine ER 20 mg PO DAILY PRN .. 03/01/24 03/05/24 20 mg 24hr capsule,extend release fluoxetine 40 mg capsule 40 mg PO QPM 03/01/24 03/05/24 insulin aspart U-100 100 unit/mL 0 unit subcut DIRECTED 03/01/24 03/05/24 subcutaneous solution (Novolog U-100 Insulin aspart) losartan 50 mg tablet 50 mg PO QPM 03/01/24 03/05/24 lovastatin 40 mg tablet 40 mg PO QPM 03/01/24 03/05/24 multivitamin-ferrous 1 tab PO DAILY 03/01/24 03/05/24 fumarate-folic acid 18 mg-400 mcg tablet (Centrum Complete) ondansetron HCl 4 mg tablet 4 mg PO Q8 PRN Nausea 03/01/24 03/05/24 semaglutide 1 mg/dose (4 mg/3 mL) 1 mg subcut .QFRIDAY 03/01/24 03/05/24 subcutaneous pen injector (Ozempic) Previous Rx's Medication Instructions Recorded oxycodone-acetaminophen 5 mg-325 1 tab PO Q6H PRN pain #10 tabs 03/02/24 mg tablet cefdinir 300 mg capsule 300 mg PO BID 5 days #10 caps 03/03/24 Results & Data (ED) Vital Signs Vital Signs - 24 hr 03/05/24 12:37 03/05/24 12:56 03/05/24 13:11 Temperature 36.7 C Temperature Source Oral Pulse Rate 145 H 90 Pulse Rate [Apical] Pulse Rate from SpO2 Sensor Pulse Rhythm Regular Pulse Rhythm [Apical] Pulse Strength Normal Pulse Strength [Apical] Respiratory Rate 20 Respiratory Effort / Characteristics Non-Labored Spontaneous Respiratory Depth Normal Respiratory Pattern Blood Pressure 76/59 L Blood Pressure [Right Arm] Blood Pressure Mean 64 Blood Pressure Mean [Right Arm] Blood Pressure Position Sitting Blood Pressure Position [Right Arm] Pulse Oximetry 97 Oxygen Delivery Method Room Air Room Air Oxygen Flow Rate Sepsis Recent Fever Within 48 Hours No Sepsis New/Unexplained Change in Mental Status N/A Sepsis Action Taken by Nursing No Action Required 03/05/24 13:11 03/05/24 13:58 03/05/24 14:25 Temperature Temperature Source Pulse Rate 93 H Pulse Rate [Apical] 89 Pulse Rate from SpO2 Sensor Pulse Rhythm Pulse Rhythm [Apical] Pulse Strength Pulse Strength [Apical] Respiratory Rate 23 18 Respiratory Effort / Characteristics Respiratory Depth Respiratory Pattern Blood Pressure Blood Pressure [Right Arm] 92/61 L Blood Pressure Mean Blood Pressure Mean [Right Arm] 71 Blood Pressure Position Blood Pressure Position [Right Arm] Pulse Oximetry 91 94 Oxygen Delivery Method Room Air Room Air Nasal Cannula Oxygen Flow Rate 2 Sepsis Recent Fever Within 48 Hours Sepsis New/Unexplained Change in Mental Status Sepsis Action Taken by Nursing 03/05/24 14:30 03/05/24 15:23 03/05/24 15:27 Temperature Temperature Source Pulse Rate 90 87 Pulse Rate [Apical] 93 H Pulse Rate from SpO2 Sensor 90 87 Pulse Rhythm Pulse Rhythm [Apical] Regular Pulse Strength Pulse Strength [Apical] Normal Respiratory Rate 22 20 19 Respiratory Effort / Characteristics Non-Labored Respiratory Depth Normal Respiratory Pattern Regular Blood Pressure 79/47 L Blood Pressure [Right Arm] 79/47 L Blood Pressure Mean 57 Blood Pressure Mean [Right Arm] 57 Blood Pressure Position Blood Pressure Position [Right Arm] Lying Pulse Oximetry 89 L 88 L 92 Oxygen Delivery Method Nasal Cannula Room Air Oxygen Flow Rate 2 Sepsis Recent Fever Within 48 Hours Sepsis New/Unexplained Change in Mental Status Sepsis Action Taken by Nursing 03/05/24 15:30 03/05/24 15:30 03/05/24 15:31 Temperature Temperature Source Pulse Rate Pulse Rate [Apical] 85 Pulse Rate from SpO2 Sensor Pulse Rhythm Pulse Rhythm [Apical] Regular Pulse Strength Pulse Strength [Apical] Normal Respiratory Rate 20 Respiratory Effort / Characteristics Non-Labored Respiratory Depth Normal Respiratory Pattern Regular Blood Pressure Blood Pressure [Right Arm] 99/63 L Blood Pressure Mean Blood Pressure Mean [Right Arm] 75 Blood Pressure Position Blood Pressure Position [Right Arm] Sitting Pulse Oximetry 91 87 L 92 Oxygen Delivery Method Nasal Cannula Room Air Nasal Cannula Oxygen Flow Rate 2 2 Sepsis Recent Fever Within 48 Hours Sepsis New/Unexplained Change in Mental Status Sepsis Action Taken by Nursing 03/05/24 15:39 03/05/24 16:03 03/05/24 16:30 Temperature Temperature Source Pulse Rate 85 88 91 H Pulse Rate [Apical] Pulse Rate from SpO2 Sensor 84 88 86 Pulse Rhythm Pulse Rhythm [Apical] Pulse Strength Pulse Strength [Apical] Respiratory Rate 15 17 17 Respiratory Effort / Characteristics Respiratory Depth Respiratory Pattern Blood Pressure 99/63 L 82/70 L 95/63 L Blood Pressure [Right Arm] Blood Pressure Mean 75 74 73 Blood Pressure Mean [Right Arm] Blood Pressure Position Blood Pressure Position [Right Arm] Pulse Oximetry 93 95 68 L Oxygen Delivery Method Oxygen Flow Rate Sepsis Recent Fever Within 48 Hours Sepsis New/Unexplained Change in Mental Status Sepsis Action Taken by Nursing 03/05/24 17:15 03/05/24 17:31 Temperature Temperature Source Pulse Rate 87 Pulse Rate [Apical] Pulse Rate from SpO2 Sensor 87 Pulse Rhythm Pulse Rhythm [Apical] Pulse Strength Pulse Strength [Apical] Respiratory Rate 18 Respiratory Effort / Characteristics Respiratory Depth Respiratory Pattern Blood Pressure 88/69 L Blood Pressure [Right Arm] Blood Pressure Mean 75 Blood Pressure Mean [Right Arm] Blood Pressure Position Blood Pressure Position [Right Arm] Pulse Oximetry 80 L 89 L Oxygen Delivery Method Nasal Cannula Oxymask Oxygen Flow Rate 6 10 Sepsis Recent Fever Within 48 Hours Sepsis New/Unexplained Change in Mental Status Sepsis Action Taken by Nursing Laboratory Data Attestation: I reviewed the patient's lab results. 03/05/24 14:07 03/05/24 14:07 Lab Results 03/05/24 03/05/24 03/05/24 Range/Units 14:07 14:07 16:04 WBC 12.08 H (4.8-10.8) K/ul RBC 3.40 L (4.20-5.40) M/uL Hgb 10.8 L (12.0-16.0) g/dl Hct 32.9 L (37.0-47.0) % MCV 96.8 (80.0-100.0) fL MCH 31.8 (25.0-34.0) pg MCHC 32.8 (32.0-36.0) g/dL RDW Std Deviation 46.3 (36.4-46.3) fL RDW Coeff of Emma 13.0 (11.5-14.5) % Plt Count 322 (130-400) K/uL MPV 11.1 (9.4-12.4) fL Immature Gran % (Auto) 0.6 % Neut % (Auto) 78.0 % Lymph % (Auto) 16.6 % Roberts % (Auto) 4.7 % Eos % (Auto) 0.0 % Baso % (Auto) 0.1 % Neut # (Auto) 9.43 H (1.40-6.50) K/uL Lymph # (Auto) 2.00 (1.20-3.40) K/uL Roberts # (Auto) 0.57 (0.11-0.59) K/uL Eos # (Auto) 0.00 (0.00-0.50) K/uL Baso # (Auto) 0.01 (0.00-0.20) K/uL Immature Gran # (Auto) 0.07 (0.01-0.20) K/uL Absolute Nucleated RBC 0.02 (0.00-0.12) K/uL Nucleated RBC % (auto) 0.2 % APTT Cancelled PTT Ratio Cancelled Sodium 139 (136-145) mmol/L Potassium 5.2 H (3.5-5.1) mmol/L Chloride 109 H (98-107) mmol/L Carbon Dioxide 20 L (21-32) mmol/L Anion Gap 10 (3-11) BUN 34 H (6-23) mg/dl Creatinine 3.38 H (0.6-1.2) mg/dl Est Cr Clr Drug Dosing 17.1 ml/min Est GFR ( Amer) 16.6 ml/min Est GFR (Non-Af Amer) 14.3 ml/min BUN/Creatinine Ratio 10.1 (10-20) Glucose 115 H (70-99(Fasting)) mg/dl Calcium 9.2 (8.6-10.3) mg/dl Phosphorus 4.1 (2.5-4.9) mg/dl Magnesium 2.4 (1.7-2.4) mg/dl Total Bilirubin 0.5 (0.2-1.0) mg/dl AST 70 H (13-39) U/L ALT 42 (7-52) U/L Alkaline Phosphatase 95 (34-104) U/L Troponin I High Sens 2428.3 H* Cancelled 3150.9 H* D (0-14) pg/ml Total Protein 6.4 (6.0-8.3) gm/dl Albumin 3.6 (3.4-5.0) gm/dl Globulin 2.8 (2.5-4.0) gm/dl Albumin/Globulin Ratio 1.3 (0.9-2) Lipase 6 L (11-82) U/L Procalcitonin 2.66 H (0-0.5) ng/ml Administered Medications Heparin Sodium/Dextrose (Heparin Sodium/Dextrose) 25,000 units in 500 mls @ 14 mls/hr IV .Q24H KANDI; Protocol Stop: 03/06/24 04:00 Last Admin: 03/05/24 17:23 Dose: 700 units/hr, 14 mls/hr Documented By: [facility] Co-signed By: Discontinued Medications Aspirin (Aspirin Chew 324 Mg) 324 mg PO NOW STA Stop: 03/05/24 16:50 Last Admin: 03/05/24 17:21 Dose: 324 mg Documented By: [facility] Sodium Chloride (Nss) 1,000 mls @ 999 mls/hr IV .Q1H1M KANDI Stop: 03/05/24 15:45 Last Admin: 03/05/24 14:17 Dose: 999 mls/hr Documented By: Infusion: 03/05/24 14:17 Dose: Infused Documented By: Admin: 03/05/24 13:59 Dose: 999 mls/hr Documented By: AURELIO Famotidine (Pepcid 20mg Iv Push) 20 mg in 5 mls @ 2.5 mls/min IV NOW STA Stop: 03/05/24 14:37 Last Admin: 03/05/24 15:26 Dose: 2.5 mls/min Documented By: [facility] Cefepime HCl (Maxipime) 2,000 mg in 20 mls @ 5 mls/min IV NOW STA; Protocol Stop: 03/05/24 16:10 Last Admin: 03/05/24 17:30 Dose: 5 mls/min Documented By: [facility] Metronidazole (Flagyl) 500 mg in 100 mls @ 100 mls/hr IV NOW STA; Protocol Stop: 03/05/24 17:06 Last Admin: 03/05/24 17:35 Dose: 100 mls/hr Documented By: [facility] Ioversol (Optiray 320 125ml) 119 ml IV ONCE ONE Stop: 03/05/24 15:11 Last Admin: 03/05/24 15:10 Dose: 119 ml Documented By: NATALIO Morphine Sulfate (Morphine Sulfate 4 Mg/Ml 1 Ml Carp\Vial) 4 mg IV NOW STA Stop: 03/05/24 14:37 Last Admin: 03/05/24 15:26 Dose: 4 mg Documented By: [facility] Ondansetron HCl (Ondansetron Inj 2 Mg/Ml 2 Ml Vial) 4 mg IV NOW STA Stop: 03/05/24 14:37 Last Admin: 03/05/24 15:24 Dose: 4 mg Documented By: [facility] Imaging Data Radiologist's Impression: Chest X-Ray 03/05/24 13:36 XR chest 1V portable HISTORY: Chest pain, nonspecific COMPARISON: Chest 03/03/2024. FINDINGS: No pneumothorax. The heart is mildly enlarged. There are low lung volumes. Small bilateral pleural effusions and bibasilar densities have progressed. No evidence for pulmonary edema. No acute fractures. IMPRESSION: Interval development of small bilateral pleural effusions and bibasilar densities. This may represent atelectasis from the pleural effusions or a pneumonia. ACT 112: Negative or not required by law. Electronically signed by: Pierre Talley M.D. 03/05/2024 2:46 PM Abdomen/Pelvis CT 03/05/24 14:[address] WITH IV CONTRAST CT DOSE: HISTORY: hypotension, s/p appendectomy TECHNIQUE: Multiaxial CT images of the abdomen and pelvis were performed following the use of intravenous contrast. A dose lowering technique was utilized adhering to the principles of ALARA. COMPARISON STUDY: Abdomen and pelvis CT 03/01/2024. FINDINGS: The bilateral pleural effusions and bibasilar densities are better appreciated on the same day chest CTA. No pneumoperitoneum. No pneumatosis. No acute fractures identified. The heart is mildly enlarged. There is mild to moderate body wall edema noted. Heterogeneous opacification of the liver which may be due to the timing of contrast. There is associated periportal edema. No hepatic or splenic masses. There are few splenic calcifications, as. The adrenal glands unremarkable. Pancreas enhances normally. Moderate right and moderate left cortical renal atrophy. No hydronephrosis. Small amount of ascites seen within the abdomen primarily surrounding the liver and gallbladder. Edema within the malou hepatis and surrounding the pancreas is likely due to the patient's diffuse edematous state. Calcified plaque within the normal caliber abdominal aorta. No retroperitoneal or pelvic lymphadenopathy. Mild bladder wall thickening which could be due to underdistention. The uterus and ovaries are unremarkable. No bowel wall thickening or obstruction. Prior appendectomy. No loculated fluid collections to suggest an abscess. IMPRESSION: 1. The bilateral pleural effusions and bibasilar densities are better appreciated on the same day chest CTA. 2. Interval appendectomy. No loculated fluid collections to suggest an abscess. 3. Periportal edema, body wall edema, and a small amount of ascites consistent with a diffuse edematous state. 4. Pericholecystic fluid with periportal and peripancreatic edema is also noted. This is likely due to the patient's diffuse edematous state. Recommend correlation with LFTs/pancreatic enzymes for further evaluation. 5. Heterogeneous appearance to the liver which is likely due to the timing of contrast. 6. No bowel wall thickening or obstruction. 7. Mild bladder wall thickening which is likely due to underdistention. Recommend correlation with urinalysis to exclude a cystitis. 8. Additional findings as described above. ACT 112: Negative or not required by law. Electronically signed by: Pierre Talley M.D. 03/05/2024 3:47 PM Chest CTA 03/05/24 14:41 CT ANGIOGRAM OF THE CHEST CLINICAL HISTORY: Dyspnea. Hypotension. COMPARISON STUDY: Chest x-ray dated 03/05/2024. TECHNIQUE: Following the IV administration of 119 cc of Optiray 320, CT angiogram of the chest was performed from the upper abdomen to the thoracic inlet utilizing the pulmonary embolus protocol. Images are reviewed in the axial, sagittal, and coronal planes. 3-D MIPS images are created and assessed. IV contrast was administered without complication. A dose lowering technique was utilized adhering to the principles of ALARA. CT DOSE: 2262.85 mGy.cm FINDINGS: Thyroid: Imaged portions of the thyroid gland are normal in size and attenuation. Thoracic aorta: The thoracic aorta is normal in caliber and demonstrates 4- vessel there is arch anatomy. No dissection is seen. Pulmonary vasculature: The pulmonary trunk is normal in caliber. There are no filling defects identified in main, lobar, or segmental pulmonary branches to suggest pulmonary embolus. Heart: The heart is mildly enlarged noting a small pericardial effusion. The coronary arteries are densely calcified. Lungs and pleural spaces: There are moderate pleural effusions, right larger than left with dependent consolidation. The trachea and central airways are clear. Intralobular septal thickening suggests fluid overload/congestive change. Mediastinum: There is no mediastinal lymphadenopathy. Lisa: Clear. Axillae: There is no axillary lymphadenopathy. Upper abdomen: There is a small volume of perihepatic and perisplenic ascites. Skeletal structures: No lytic or blastic bony lesions are seen. Soft tissues: There is body wall edema. IMPRESSION: 1. There is no evidence of pulmonary embolus in the main, lobar, or segmental pulmonary arteries. 2. Mild cardiomegaly with evidence of fluid overload/congestive change. 3. Right larger than left pleural effusions with dependent consolidation. 4. Advanced coronary artery atherosclerosis. 5. Small volume upper abdominal ascites. 6. Additional findings as above. ACT 112: Negative or not required by law. Electronically signed by: Km Henry M.D. 03/05/2024 3:59 PM Discharge Plan Visit Data Chief Complaint: Hypotension Stated Complaint: LOW BP, HAD SURGERY ON TUESDAY, VOMITING ED Provider: Lawson Jimenez Discharge Problem: Acute respiratory failure with hypoxia, Sepsis, Acute renal failure, Non-ST elevation WI (NSTEMI), Right ventricular dysfunction, Type 1 diabetes mellitus Patient Disposition: Admitted As Inpatient Discharge Instructions Interventions: ED Discharge Assessment Last Done: 03/05/24 19:26 Discharge Problem: Sepsis Qualifiers: Sepsis type: sepsis due to unspecified organism Sepsis acute organ dysfunction status: with acute organ dysfunction Severe sepsis acute organ dysfunction type: acute renal failure Acute renal failure type: unspecified Severe sepsis shock status: with septic shock Qualified Code(s): A41.9 - Sepsis, unspecified organism Acute renal failure Qualifiers: Acute renal failure type: unspecified Qualified Code(s): N17.9 - Acute kidney failure, unspecified Type 1 diabetes mellitus Qualifiers: Diabetes mellitus complication status: with other specified complication Q ualified Code(s): E10.69 - Type 1 diabetes mellitus with other specified complication
[2024-03-05] MEDS: SODIUM CHLORIDE 0.9% 1,000 ML IV SCH (13:59)
[2024-03-05 14:34] LABS: Basophils # (auto) 0.01 K/uL (0.00-0.20); Basophils % (auto) 0.1 %; Hematocrit (blood only) 32.9 % (37.0-47.0); Hemoglobin 10.8 g/dl (12.0-16.0); Immature Granulocytes # (auto) 0.07 K/uL (0.01-0.20); Immature Granulocytes % (auto) 0.6 %; Lymphocytes % (auto) 16.6 %; Mean Corpuscular Hemoglobin 31.8 pg (25.0-34.0); Mean Corpuscular Hgb Conc 32.8 g/dL (32.0-36.0); Mean Corpuscular Volume 96.8 fL (80.0-100.0); Mean Platelet Volume 11.1 fL (9.4-12.4); Monocytes # (auto) 0.57 K/uL (0.11-0.59); Monocytes % (auto) 4.7 %; Neutrophils # (auto) 9.43 K/uL (1.40-6.50); Nucleated RBC # (auto) 0.02 K/uL (0.00-0.12); Nucleated RBC % (auto) 0.2 %; Platelet Count 322 K/uL (130-400); RDW Standard Deviation 46.3 fL (36.4-46.3); White Blood Count 12.08 K/ul (4.8-10.8)
--- NOTE | 2024-03-05 14:48 | XRay Report ---
XR chest 1V portable HISTORY: Chest pain, nonspecific COMPARISON: Chest 03/03/2024. FINDINGS: No pneumothorax. The heart is mildly enlarged. There are low lung volumes. Small bilateral pleural effusions and bibasilar densities have progressed. No evidence for pulmonary edema. No acute fractures. IMPRESSION: Interval development of small bilateral pleural effusions and bibasilar densities. This may represent atelectasis from the pleural effusions or a pneumonia. ACT 112: Negative or not required by law. Electronically signed by: Pierre Talley M.D. 03/05/2024 2:46 PM
[2024-03-05 14:53] LABS: Albumin Globulin Ratio 1.3 (0.9-2); Albumin Level 3.6 gm/dl (3.4-5.0); BUN Creatinine Ratio 10.1 (10-20); Bilirubin,Total 0.5 mg/dl (0.2-1.0); Calcium 9.2 mg/dl (8.6-10.3); Creatinine Clr Calc Pharmacy 17.1 ml/min; Est GFR (African American) 16.6 ml/min; Est GFR (Non-African American) 14.3 ml/min; Globulin 2.8 gm/dl (2.5-4.0); Magnesium 2.4 mg/dl (1.7-2.4); Phosphorus 4.1 mg/dl (2.5-4.9); Potassium 5.2 mmol/L (3.5-5.1); Total Protein 6.4 gm/dl (6.0-8.3)
[2024-03-05] MEDS: OPTIRAY 320 125ml IV ONE (15:10)
[2024-03-05 15:14] LABS: Troponin I High Sensitivity 2428.3 pg/ml (0-14)
[2024-03-05] MEDS: ONDANSETRON INJ 2 MG/ML 2 ML VIAL IV STA (15:24)
[2024-03-05] MEDS: MoRPHine SULFATE 4 MG/ML 1 ML CARP\\VIAL IV STA (15:26)
[2024-03-05] MEDS: FAMOTIDINE 20MG IV PUSH 20 MG/5 ML SYR IV STA (15:26)
--- NOTE | 2024-03-05 15:49 | CT Scan Report ---
ABDOMEN AND PELVIS CT WITH IV CONTRAST CT DOSE: HISTORY: hypotension, s/p appendectomy TECHNIQUE: Multiaxial CT images of the abdomen and pelvis were performed following the use of intrave nous contrast. A dose lowering technique was utilized adhering to the principles of ALARA. COMPARISON STUDY: Abdomen and pelvis CT 03/01/2024. FINDINGS: The bilateral pleural effusions and bibasilar densities are better appreciated on the same day chest CTA. No pneumoperitoneum. No pneumatosis. No acute fractures identified. The heart is mildl y enlarged. There is mild to moderate body wall edema noted. Heterogeneous opacification of the liver which may be due to the timing of contrast. There is associated periportal edema. No hepatic or sple adrienne masses. There are few splenic calcifications, as. The adrenal glands unremarkable. Pancreas enhan umang normally. Moderate right and moderate left cortical renal atrophy. No hydronephrosis. Small amoun t of ascites seen within the abdomen primarily surrounding the liver and gallbladder. Edema within th e malou hepatis and surrounding the pancreas is likely due to the patient's diffuse edematous state. Calcified plaque within the normal caliber abdominal aorta. No retroperitoneal or pelvic lymphadenopa thy. Mild bladder wall thickening which could be due to underdistention. The uterus and ovaries are u nremarkable. No bowel wall thickening or obstruction. Prior appendectomy. No loculated fluid collecti ons to suggest an abscess. IMPRESSION: 1. The bilateral pleural effusions and bibasilar densities are better appreciated on the same day marilyn st CTA. 2. Interval appendectomy. No loculated fluid collections to suggest an abscess. 3. Periportal edema, body wall edema, and a small amount of ascites consistent with a diffuse edemato us state. 4. Pericholecystic fluid with periportal and peripancreatic edema is also noted. This is likely due t o the patient's diffuse edematous state. Recommend correlation with LFTs/pancreatic enzymes for furth er evaluation. 5. Heterogeneous appearance to the liver which is likely due to the timing of contrast. 6. No bowel wall thickening or obstruction. 7. Mild bladder wall thickening which is likely due to underdistention. Recommend correlation with ur inalysis to exclude a cystitis. 8. Additional findings as described above. ACT 112: Negative or not required by law. Electronically signed by: Pierre Talley M.D. 03/05/2024 3:47 PM
--- NOTE | 2024-03-05 16:00 | CT Scan Report ---
CT ANGIOGRAM OF THE CHEST CLINICAL HISTORY: Dyspnea. Hypotension. COMPARISON STUDY: Chest x-ray dated 03/05/2024. TECHNIQUE: Following the IV administration of 119 cc of Optiray 320, CT angiogram of the chest was pe rformed from the upper abdomen to the thoracic inlet utilizing the pulmonary embolus protocol. Images are reviewed in the axial, sagittal, and coronal planes. 3-D MIPS images are created and assessed. I V contrast was administered without complication. A dose lowering technique was utilized adhering to the principles of ALARA. CT DOSE: 2262.85 mGy.cm FINDINGS: Thyroid: Imaged portions of the thyroid gland are normal in size and attenuation. Thoracic aorta: The thoracic aorta is normal in caliber and demonstrates 4-vessel there is arch anato my. No dissection is seen. Pulmonary vasculature: The pulmonary trunk is normal in caliber. There are no filling defects identif ied in main, lobar, or segmental pulmonary branches to suggest pulmonary embolus. Heart: The heart is mildly enlarged noting a small pericardial effusion. The coronary arteries are de nsely calcified. Lungs and pleural spaces: There are moderate pleural effusions, right larger than left with dependent consolidation. The trachea and central airways are clear. Intralobular septal thickening suggests fl uid overload/congestive change. Mediastinum: There is no mediastinal lymphadenopathy. Lisa: Clear. Axillae: There is no axillary lymphadenopathy. Upper abdomen: There is a small volume of perihepatic and perisplenic ascites. Skeletal structures: No lytic or blastic bony lesions are seen. Soft tissues: There is body wall edema. IMPRESSION: 1. There is no evidence of pulmonary embolus in the main, lobar, or segmental pulmonary arteries. 2. Mild cardiomegaly with evidence of fluid overload/congestive change. 3. Right larger than left pleural effusions with dependent consolidation. 4. Advanced coronary artery atherosclerosis. 5. Small volume upper abdominal ascites. 6. Additional findings as above. ACT 112: Negative or not required by law. Electronically signed by: Km Henry M.D. 03/05/2024 3:59 PM
[2024-03-05 16:07] LABS: Appearance Urine Cloudy (Clear); Bacteria Urine Automated None Seen (None Seen); Bilirubin Urine 1+ (Negative); Blood Urine Negative (Negative); Cast Urine Automated >20 /lpf (0-2); Color Urine Dark Yellow; Glucose Urine UA Negative (Negative); Hyaline Casts Urine Present /lpf (None Presnt); Ketones Urine 1+ (Negative); Leukocyte Esterase Urine 1+ (Negative); Nitrite Urine Negative (Negative); Protein Urine 1+ (Negative); RBC Urine Automated 0-2 /hpf (0-2); Specific Gravity Urine 1.029 (1.000-1.030); Urobilinogen Urine Negative (Negative)
--- NOTE | 2024-03-05 16:24 | History & Physical Report ---
Date of Service March 05, 2024 Assessment & Plan (1) Shock: (2) Type 1 diabetes mellitus: (3) Non-ST elevation HI (NSTEMI): (4) Acute respiratory failure with hypoxia: (5) Acute renal failure: (6) Sepsis: Plan Pt is a 58yoF with PMHx significant for hypertension, hyperlipidemia, DM 1 on insulin pump, VAHE, CKD (baseline creatinine 1.3), ADHD, anxiety/mood disorder, recent appendectomy 3 days ago with post-op hypotension presenting with N/V and continued weakness at home since discharge. Medically complex, currently admitted to the ICU. Septic, hypoxic, with an NSTEMI with fluid overload in the setting of acute on chronic kidney disease. Acute hypoxic respiratory Failure Pleural Effusions Increased oxygen requirement at 2L, now up to 10L via oxymask Chest xray noting pleural effusions, possible pneumonia. Procal elevated at 2.66 Chest CTA with no PE. Notes R>L pleural effusions Respiratory panel negative VBG pending Oxygen supplementation as needed, wean as tolerated Likely in setting of pleural effusions, possible pneumonia Pulmonology consulted, appreciate recs -anticipates thoracentesis tomorrow, advised to hold IV heparin at 4AM Continue to monitor, pt admitted to the ICU CHF Anasarca No prior diagnosis of CHF Chest CTA noting " Mild cardiomegaly with evidence of fluid overload/congestive change" Also R>L pleural effusions BNP pending Stat Echo per operations systems specialist, currently pending Cardiology consulted, appreciate recs NSTEMI Trop elevated at 2428 to 3150 EKG, Echo pending as above Trend trop to peak Received aspirin 324mg in the ED, continue with IV Heparin (to be held at 4AM per pulm for thoracentesis tomorrow) Cardiology consulted as above, appreciate recs Acute on Chronic Kidney Disease Cr baseline of 1.3, was elevated at 1.82 3 days ago Cr 3.38 this admission Pt fluid overloaded in setting of CHF/anasarca Received 1L of fluids in the ED, will defer on further fluids at this time Continue to hold home losartan Avoid nephrotoxic agents as able Nephrology consulted for further recs in this setting Severe sepsis/Septic Shock UTI Possible Pneumonia Pt with leukocytosis, tachypnea, hypotension Was being treated for a UTI at home with po cefdinir, urine cx grew pansensitive klebsiella Lactate wnl Procal elevated at 2.66 Chest imaging with possible pneumonia CT abd/pelvis with no abscess or acute infectious abnormality in post op setting UA with noted improvement from prior, repeat urine Cx pending Postop incisions do not appear infected Blood Cx x1 set pending Holding home cefdinir Continue with IV Cefepime and Flagyl empirically Continue to monitor BP, admitted to ICU, might require pressor support History of Appendicitis POD#3, s/p appendectomy on 03/02 with General surgery Post op hypotension that resolved with fluids CT abd/pelvis with no noted complications Consider General Surgery consult for followup while hospitalized DMI On Insulin pump, continue Continue other home meds as ordered. CODE STATUS: Full code DVT prophylaxis: On heparin drip Diet: clears, NPO after midnight Dispo: Admit to the ICU History of Present Illness Chief Complaint: Weakness, N/V Primary Care Provider: Antonio Cristobal MD Pt is a 58yoF with PMHx significant for hypertension, hyperlipidemia, DM 1 on insulin pump, VAHE, CKD (baseline creatinine 1.3), ADHD, anxiety/mood disorder, recent appendectomy 3 days ago with post-op hypotension presenting with N/V and continued weakness at home since discharge. History obtained from pt and partner in the room. States that she was tolerating a diet on discharge but soon developed N/V and generalized weakness upon return home. Per partner, tried encouraging her to sit up and take her medications but it got to the point where she just could not. Took her blood pressure at home and states that it was very low. They state they contacted their surgeon's office who advised going to the ED for further evaluation. Pt denies dyspnea or SOB. Denies chest pain. States she does note dizziness when she tries to get up to use the bathroom. 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 Partner notes coughing fits at home as well. Allergies Allergy/AdvReac Type Severity Reaction Status Date / Time CHAPARRO Inhibitors Allergy Intermediate cough Verified 03/01/24 23:34 Penicillins Allergy Intermediate rash Verified 03/01/24 23:34 Home Medications Medication Instructions Recorded Confirmed Type albuterol sulfate 90 mcg/actuation 2 puff inhalation Q4 PRN .COUGH, 03/01/24 03/05/24 History aerosol inhaler WHEEZING aspirin 81 mg tablet,delayed 81 mg PO QPM 03/01/24 03/05/24 History release dextroamphetamine-amphetamine ER 20 mg PO DAILY PRN .. 03/01/24 03/05/24 History 20 mg 24hr capsule,extend release fluoxetine 40 mg capsule 40 mg PO QPM 03/01/24 03/05/24 History insulin aspart U-100 100 unit/mL 0 unit subcut DIRECTED 03/01/24 03/05/24 History subcutaneous solution (Novolog U-100 Insulin aspart) losartan 50 mg tablet 50 mg PO QPM 03/01/24 03/05/24 History lovastatin 40 mg tablet 40 mg PO QPM 03/01/24 03/05/24 History multivitamin-ferrous 1 tab PO DAILY 03/01/24 03/05/24 History fumarate-folic acid 18 mg-400 mcg tablet (Centrum Complete) ondansetron HCl 4 mg tablet 4 mg PO Q8 PRN Nausea 03/01/24 03/05/24 History semaglutide 1 mg/dose (4 mg/3 mL) 1 mg subcut .QFRIDAY 03/01/24 03/05/24 History subcutaneous pen injector (Ozempic) oxycodone-acetaminophen 5 mg-325 1 tab PO Q6H PRN pain #10 tabs 03/02/24 03/05/24 Rx mg tablet cefdinir 300 mg capsule 300 mg PO BID 5 days #10 caps 03/03/24 03/05/24 Rx Past Med/Surg History Problem List (Updated 03/05/24 @ 20:04 by JONH Leary) Shock Type 1 diabetes mellitus (Acute) Right ventricular dysfunction (Acute) Non-ST elevation HI (NSTEMI) (Acute) Acute respiratory failure with hypoxia (Acute) Acute renal failure (Acute) Sepsis (Acute) UTI due to Klebsiella species Acute kidney injury Acute appendicitis (Acute) COVID-19 (Acute) Neck muscle spasm (Acute) Intractable pain (Acute) Alcoholic intoxication (Acute) Encounter for medication refill (Acute) Encounter for medication refill (Acute) Medical History Cervical radiculopathy DM (diabetes mellitus), type 1 Surgical History Hx of eye surgery History of female sterilization History of carpal tunnel surgery Social History Smoking Status: Never smoker Second Hand Exposure: No; Do You Dip or Chew Tobacco: No; Hx Alcohol Use: Yes Alcohol type: wine Hx Substance Use: No Preferred Language: Persian Communication Ability: Effective Pelts Skinner Required: No Beliefs That Will Affect Care: None Current Living Situation: Spouse Feels Safe at Home: Yes Assistive Devices: None Review of Systems Review of Systems: All systems reviewed & are unremarkable except as noted in Subjective Physical Exam Physical Exam: General: Alert, oriented. No acute distress, NC in nares Skin: No noted rashes or bruises Psych: Appropriate mood and affect HEENT: NC/AT, NC in nares CV: RRR Resp: Breath sounds clear bilaterally, no increased effort of breathing Abdomen: Soft, nontender Extremities: No edema in lower extremities bilaterally. Results & Data Results & Data Vital Signs (Past 12 Hours) Vital Signs Temp Pulse Pulse Resp BP BP Pulse Ox 03/05/24 15:30 85 20 99/63 L 91 03/05/24 15:23 93 H 20 79/47 L 88 L 03/05/24 14:25 94 03/05/24 13:58 93 H 18 91 03/05/24 13:11 89 23 92/61 L 03/05/24 13:11 03/05/24 12:56 90 03/05/24 12:37 36.7 C 145 H 20 76/59 L 97 O2 Del Method O2 Flow Rate 03/05/24 15:30 Nasal Cannula 2 03/05/24 15:23 Room Air 03/05/24 14:25 Nasal Cannula 2 03/05/24 13:58 Room Air 03/05/24 13:11 Room Air 03/05/24 13:11 Room Air 03/05/24 12:56 03/05/24 12:37 Room Air Diagnostic Findings Chest X-Ray 03/05/24 13:36 XR chest 1V portable HISTORY: Chest pain, nonspecific COMPARISON: Chest 03/03/2024. FINDINGS: No pneumothorax. The heart is mildly enlarged. There are low lung volumes. Small bilateral pleural effusions and bibasilar densities have progressed. No evidence for pulmonary edema. No acute fractures. IMPRESSION: Interval development of small bilateral pleural effusions and bibasilar densities. This may represent atelectasis from the pleural effusions or a pneumonia. ACT 112: Negative or not required by law. Electronically signed by: Pierre Talley M.D. 03/05/2024 2:46 PM Abdomen/Pelvis CT 03/05/24 14:[address] WITH IV CONTRAST CT DOSE: HISTORY: hypotension, s/p appendectomy TECHNIQUE: Multiaxial CT images of the abdomen and pelvis were performed following the use of intravenous contrast. A dose lowering technique was utilized adhering to the principles of ALARA. COMPARISON STUDY: Abdomen and pelvis CT 03/01/2024. FINDINGS: The bilateral pleural effusions and bibasilar densities are better appreciated on the same day chest CTA. No pneumoperitoneum. No pneumatosis. No acute fractures identified. The heart is mildly enlarged. There is mild to moderate body wall edema noted. Heterogeneous opacification of the liver which may be due to the timing of contrast. There is associated periportal edema. No hepatic or splenic masses. There are few splenic calcifications, as. The adrenal glands unremarkable. Pancreas enhances normally. Moderate right and moderate left cortical renal atrophy. No hydronephrosis. Small amount of ascites seen within the abdomen primarily surrounding the liver and gallbladder. Edema within the malou hepatis and surrounding the pancreas is likely due to the patient's diffuse edematous state. Calcified plaque within the normal caliber abdominal aorta. No retroperitoneal or pelvic lymphadenopathy. Mild bladder wall thickening which could be due to underdistention. The uterus and ovaries are unremarkable. No bowel wall thickening or obstruction. Prior appendectomy. No loculated fluid collections to suggest an abscess. IMPRESSION: 1. The bilateral pleural effusions and bibasilar densities are better appreciated on the same day chest CTA. 2. Interval appendectomy. No loculated fluid collections to suggest an abscess. 3. Periportal edema, body wall edema, and a small amount of ascites consistent with a diffuse edematous state. 4. Pericholecystic fluid with periportal and peripancreatic edema is also noted. This is likely due to the patient's diffuse edematous state. Recommend correlation with LFTs/pancreatic enzymes for further evaluation. 5. Heterogeneous appearance to the liver which is likely due to the timing of contrast. 6. No bowel wall thickening or obstruction. 7. Mild bladder wall thickening which is likely due to underdistention. Recommend correlation with urinalysis to exclude a cystitis. 8. Additional findings as described above. ACT 112: Negative or not required by law. Electronically signed by: Pierre Talley M.D. 03/05/2024 3:47 PM Chest CTA 03/05/24 14:41 CT ANGIOGRAM OF THE CHEST CLINICAL HISTORY: Dyspnea. Hypotension. COMPARISON STUDY: Chest x-ray dated 03/05/2024. TECHNIQUE: Following the IV administration of 119 cc of Optiray 320, CT angiogram of the chest was performed from the upper abdomen to the thoracic inlet utilizing the pulmonary embolus protocol. Images are reviewed in the axial, sagittal, and coronal planes. 3-D MIPS images are created and assessed. IV contrast was administered without complication. A dose lowering technique was utilized adhering to the principles of ALARA. CT DOSE: 2262.85 mGy.cm FINDINGS: Thyroid: Imaged portions of the thyroid gland are normal in size and attenuation. Thoracic aorta: The thoracic aorta is normal in caliber and demonstrates 4- vessel there is arch anatomy. No dissection is seen. Pulmonary vasculature: The pulmonary trunk is normal in caliber. There are no filling defects identified in main, lobar, or segmental pulmonary branches to suggest pulmonary embolus. Heart: The heart is mildly enlarged noting a small pericardial effusion. The coronary arteries are densely calcified. Lungs and pleural spaces: There are moderate pleural effusions, right larger than left with dependent consolidation. The trachea and central airways are clear. Intralobular septal thickening suggests fluid overload/congestive change. Mediastinum: There is no mediastinal lymphadenopathy. Lisa: Clear. Axillae: There is no axillary lymphadenopathy. Upper abdomen: There is a small volume of perihepatic and perisplenic ascites. Skeletal structures: No lytic or blastic bony lesions are seen. Soft tissues: There is body wall edema. IMPRESSION: 1. There is no evidence of pulmonary embolus in the main, lobar, or segmental pulmonary arteries. 2. Mild cardiomegaly with evidence of fluid overload/congestive change. 3. Right larger than left pleural effusions with dependent consolidation. 4. Advanced coronary artery atherosclerosis. 5. Small volume upper abdominal ascites. 6. Additional findings as above. ACT 112: Negative or not required by law. Electronically signed by: Km Henry M.D. 03/05/2024 3:59 PM (2) Type 1 diabetes mellitus Diabetes mellitus complication status: with other specified complication Qualified Code(s): E10.69 - Type 1 diabetes mellitus with other specified complication (5) Acute renal failure Acute renal failure type: unspecified Qualified Code(s): N17.9 - Acute kidney failure, unspecified (6) Sepsis Acute renal failure type: unspecified Sepsis acute organ dysfunction status: with acute organ dysfunction Sepsis type: sepsis due to unspecified organism Severe sepsis acute organ dysfunction type: acute renal failure Severe sepsis shock status: with septic shock Qualified Code(s): A41.9 - Sepsis, unspecified organism; R65.21 - Severe sepsis with septic shock; N17.9 - Acute kidney failure, unspecified
[2024-03-05 16:29] LABS: Adenovirus PCR Not Detected (NotDetected); Bordetella parapertussis PCR Not Detected (NotDetected); Bordetella pertussis PCR Not Detected (NotDetected); Chlamydia pneumoniae PCR Not Detected (NotDetected); Coronavirus 229E PCR Not Detected (NotDetected); Coronavirus CoV-2 (COVID19)PCR Not Detected (NotDetected); Coronavirus HKU1 PCR Not Detected (NotDetected); Coronavirus NL63 PCR Not Detected (NotDetected); Coronavirus OC43PCR Not Detected (NotDetected); Human Metapneumovirus PCR Not Detected (NotDetected); Influenza A PCR Not Detected (NotDetected); Influenza B PCR Not Detected (NotDetected); Mycoplasma pneumoniae PCR Not Detected (NotDetected); Parainfluenza Virus 1 PCR Not Detected (NotDetected); Parainfluenza Virus 2 PCR Not Detected (NotDetected); Parainfluenza Virus 3 PCR Not Detected (NotDetected); Parainfluenza Virus 4 PCR Not Detected (NotDetected); Respiratory Syncytial VirusPCR Not Detected (NotDetected); Rhinovirus/Enterovirus PCR Not Detected (NotDetected)
[2024-03-05] MEDS ORDERED: Heparin IV Adult Wt-Based Low-Dose *NO* INITIAL Bolus Protocol IV SCH (17:03)
[2024-03-05] MEDS: ASPIRIN CHEW 324 MG PO STA (17:21)
[2024-03-05] MEDS: HEPARIN SODIUM/DEXTROSE 25,000 UNITS/500 ML BAG IV SCH (17:23)
[2024-03-05] MEDS: CEFEPIME 2,000 MG/20 ML VIAL IV STA (17:30)
[2024-03-05] MEDS: metroNIDAZOLE 500 MG/100 ML BAG IV STA (17:35)
[2024-03-05] MEDS ORDERED: ALBUTEROL HFA 8 GM INHALER INH PRN (18:31)
[2024-03-05] MEDS ORDERED: oxyCODONE/ACETAMINOPHEN 5mg/325mg TAB PO PRN (18:31)
[2024-03-05 18:51] LABS: Partial Thromboplastin Ratio 1.1; Partial Thromboplastin Time 29 Seconds (21-31)
[2024-03-05] MEDS ORDERED: GLUCOSE 40% GEL 15 GM TUBE PO PRN (19:39)
[2024-03-05] MEDS ORDERED: GLUCAGON FOR INJ 1 MG VIAL SQ PRN (19:39)
[2024-03-05] MEDS ORDERED: INSULIN ASPART 100 UNITS/ML VIAL SC PRN (19:39)
[2024-03-05] MEDS ORDERED: GLUCOSE 10 TAB/TUBE PO PRN (19:39)
[2024-03-05] MEDS ORDERED: CARBOHYDRATES FOR HYPOGLYCEMIA PO PRN (19:39)
[2024-03-05] MEDS ORDERED: DEXTROSE 50% 50 ML SYRINGE IV PRN (19:39)
[2024-03-05] MEDS ORDERED: POLYETHYLENE (MIRALAX) 17 GM PACK PO PRN (20:21)
--- NOTE | 2024-03-05 20:22 | Critical Care Consultation ---
Date of Consultation March 05, 2024 Assessment & Plan (1) Shock: (2) Non-ST elevation MS (NSTEMI): (3) Acute respiratory failure with hypoxia: (4) Acute renal failure: (5) Sepsis: (6) UTI due to Klebsiella species: Plan Reason Critically Ill: 58 YOF presents to the ICU with shock- multifactorial to include sepsis, cardiogenic, and possibly intravascular volume dehydration- noted to have significantly elevated troponin and ECG changes but without STEMI. To ICU to obtain ECHO for RWMA follow hemodynamics and support as it clinically presents itself. Her BP is improved since arrival to ICU Neuro - NO acute needs CAM ICU: Negative - no acute needs at this time Cardiac - NSTEMI, HTN, Shock unspecified - Patient presents with SIRS criteria with presumed source continuing to be urine, however now with elevated HScTNI and ECG changes (RBB and twave changes- inferior) but without STEMI - SHe is also noted with pulmonary edema and peripheral edema notable in abdomen and liver congestion- consistent with a more right sided failure/volume overload picture - lactate is 1.5 which is re-assuring. As she received 2L crystalloid in EMD will hold on further volume at this time- likely intravascular dry but total body up-- may need some volume and diuretics at some point however will see how she does this evening pending ECHO - Obtain ECHO for any RWMA as well to differentiate type I vs. Type II- Heparin infusion at this time - IF her EF is preserved consider BB if hemodynamics tolerate - Continue heparin infusion until decision is made on labor conciliator need- Cardiology consult requested- Dr. Hoff to read ECHO per admitting hospitalist service- will follow up once complete - Provide small volume challenges for hypotension- as likely with some part of intravascular depletion with nausea and vomiting - Vasopressors/Inotrope for support of MAPS to keep >65 - BNP is 365 - Shock with organ dysfunction - lungs, heart, kidneys - supportive care as above- multifactorial Respiratory - Hypoxic respiratory failure, plueral effusions - Respiratory failure likely from pulmonary edema and pleural effusions - which may be related to her cardiac function - await ECHO - If no cardiac intervention or invasive diagnostics planned - will need heparin infusion held for 4 hours for likely Thoracentesis for RIGHT pleural effusion - Continue support with Oxygen- If worsens diurese as hemodynamics allow and transition to BiPAP - Her HCO3 chronically is in the mid 20s so doubtful obesity hypoventilation syndrome playing role - consider outpatient sleep study with new RBB RV dilation GI - small volume ascites, congestion with periportal/pericholecystic fluid, - LFT - AST elevated to 70 with normal ALT- INR no t performed and is now on heparin infusion- lipase is 6, as well as no epigastric tenderness - likely secondary to edematous state - however will continue cefepime and flagyl RENAL/LYTES - ARF on CKD, - non oliguric- multifactorial as above- await ECHO results for EF and defend maps - provide small volume if hypotension for likely intravascular depletion - she can drink clears if tolerated and would prefer oral route as primary - BP is now adequate on its own without intervention, hopeful this will incr ease perfusion to renals - Renal dose medications avoid further nephrotoxics as able- and if needed minimize exposure time - UTI - See below ENDO - DMI with NovoLog insulin pump - patient may continue pump with ACH/HS checks - clear diet for now - if BG increases with shock- will discontinue pump and place on infusion HEME - No acute needs ID - Sepesis (SIRS plus source) with evidence of end organ dysfunction - As above can't exclude sepsis however multifactorial- PCT elevated, leukocytosis, previous urine culture + with klebsiella - continue cefepime and flagyl - MRSA swab pending LINES/IV ACCESS - PIV Continue use of these lines - may need arterial line for hemodynamic monitoring and blood draws - may need central line if vasopressors/inotropic support required DVT PROPHYLAXIS - SCDs, Heparin infusion DISPO: ICU until hemodynamics proven stable I have personally spent 40 minutes of critical care time in the direct management of this patient. This is a life/limb threatening event. This includes time spent evaluating patient, direct bedside care, chart review, placing orders, interpretation of diagnostic studies, discussion with consultants, patient, and family members, as well as other required patient management activities. This time is exclusive of all separately billable procedures, and teaching time and separate from and in addition to any other critical care service time. Thank you for allowing us to participate in the care of this patient. Please refer to my attending physician's documentation for any further recommendations. History of Present Illness Reason for Consultation: elevated troponins and shock Requesting Physician: Marilin Crespo MD Attending Physician: Marilin Crespo MD History of Present Illness 58 YOF with medical history of: DMI with insulin pump, CKD, HTN. Patient presents to the EMD today for concerns of continued nausea and vomiting. She recently underwent appendectomy for acute appendicitis on 03/02/24 and was discharged on on 03/03/24. She was discharged on Cefdinir for possible UTI. She is accompanied by her and they report that since she has been home anything she eats or drinks causes her to have nausea and vomit. SHe reports no blood in her emesis. She also reports low blood pressures at home. She reported to the EMD tachycardic and hypotensive, as well as hypoxic. She had an ECG done, CXR, routine labs to include HsCTNI, and CTA of the chest. Her CXR was noted for new bilateral pleural effusions RT>LT, EKG was with T wave changes and now with Right Bundle Branch Block, last ECG is from 2020 that is reviewable, her HsCTNI was also elevated in the 2000 range and recheck was noted in the 3000 range. CTA of her chest was negative for PE but was with evidence of pulmonary congestive changes, and CT of abd/pelvis was noted for congestive changes as well with periportal edema and body wall edema. ICU was consulted for hypotension and shock appearance with end organ damage noted of cardiac and kidneys. STAT ECHO was requested as well as cardiology consultation for interpretation of ECHO. SHe was started on Heparin infusion. She remains with elevated PCT and leukocytosis as well and has been placed on Cefepime and Flagyl by admitting service. Patient evaluated in the EMD while awaiting ICU admission. She appears comfortable and denies any dyspnea even with activity, or actual chest pain/back pain or tightness. She reports most of her symptoms are noted around her incisional sites. Patient will be admitted to the ICU for following of hemodynamics, await ECHO to eval for any RWMA, continue heparin infusion and will discuss with cardiology regarding further plans after ECHO. She will also need Thoracentesis for her RIGHT pleural effusion. CODE: FULL Allergies Allergy/AdvReac Type Severity Reaction Status Date / Time CHAPARRO Inhibitors Allergy Intermediate cough Verified 03/01/24 23:34 Penicillins Allergy Intermediate rash Verified 03/01/24 23:34 Home Medications Medication Instructions Recorded Confirmed Type albuterol sulfate 90 mcg/actuation 2 puff inhalation Q4 PRN .COUGH, 03/01/24 03/05/24 History aerosol inhaler WHEEZING aspirin 81 mg tablet,delayed 81 mg PO QPM 03/01/24 03/05/24 History release dextroamphetamine-amphetamine ER 20 mg PO DAILY PRN .. 03/01/24 03/05/24 History 20 mg 24hr capsule,extend release fluoxetine 40 mg capsule 40 mg PO QPM 03/01/24 03/05/24 History insulin aspart U-100 100 unit/mL 0 unit subcut DIRECTED 03/01/24 03/05/24 History subcutaneous solution (Novolog U-100 Insulin aspart) losartan 50 mg tablet 50 mg PO QPM 03/01/24 03/05/24 History lovastatin 40 mg tablet 40 mg PO QPM 03/01/24 03/05/24 History multivitamin-ferrous 1 tab PO DAILY 03/01/24 03/05/24 History fumarate-folic acid 18 mg-400 mcg tablet (Centrum Complete) ondansetron HCl 4 mg tablet 4 mg PO Q8 PRN Nausea 03/01/24 03/05/24 History semaglutide 1 mg/dose (4 mg/3 mL) 1 mg subcut .QFRIDAY 03/01/24 03/05/24 History subcutaneous pen injector (Ozempic) oxycodone-acetaminophen 5 mg-325 1 tab PO Q6H PRN pain #10 tabs 03/02/24 03/05/24 Rx mg tablet cefdinir 300 mg capsule 300 mg PO BID 5 days #10 caps 03/03/24 03/05/24 Rx Patient History Medical History Cervical radiculopathy DM (diabetes mellitus), type 1 Surgical History Hx of eye surgery History of female sterilization History of carpal tunnel surgery Social History Smoking Status: Never smoker Second Hand Exposure: No; Do You Dip or Chew Tobacco: No; Hx Alcohol Use: Yes Alcohol type: wine Hx Substance Use: No Preferred Language: Chinese Communication Ability: Effective 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 Beliefs That Will Affect Care: None Current Living Situation: Spouse Feels Safe at Home: Yes Safety Concerns: Feels Safe At This Time Assistive Devices: None Review of Systems Review of Systems: REVIEW OF SYSTEMS: Constitutional: No fever, sweats or chills Eyes: No diplopia, no worsening or blurred vision ENT: normal hearing, no trouble swallowing Respiratory: No cough, sputum, dyspnea at rest or on exertion Cardiovascular: No chest pain, tightness or palpitations Abdomen: (+) pain, nausea, vomiting, NO diarrhea or constipation Musculoskeletal: No joint pain, calf pain, swelling Neurologic: No weakness, numbness/tingling, or balance problems Psychiatric: No anxiety or depression Skin: No rash or itch Physical Exam Physical Exam: PHYSICAL EXAM: General: awake, alert, no apparent distress Head: Normocephalic, atraumatic ENT: PERRL, EOMI, no pharyngeal exudate, mucous membranes dry Neuro: AAO x 3, speech clear and appropriate, strength intact bilaterally 5/5, sensation intact and equal all extremities and dermatomes, no pronator drift Chest: equal rise and fall of the chest, no accessory muscle use, no heaves or thrills, Clear to auscultation, on room air, Cardiac: Regular rate and rhythm, telemetry reviewed- NSR no ectopy, skin warm dry, cap refill ~3 seconds, peripheral pulses +2 no JVD, no murmur, trace peripheral edema, noted abdominal wall edema GI: NABS x 4 quadrants, soft, tender to palpation around incision sites, no rebound, incisional sites are with dermabond- no drainage and noted bruising around the sites. : Spontaneously voiding, no pain, no CVA tenderness, Psych: Normal mood and affect Skin: no rash or erythema Results & Data Results & Data Vital Signs (Past 12 Hours) Vital Signs Temp Pulse Pulse Resp BP BP Pulse Ox 03/05/24 18:30 83 18 109/74 99 03/05/24 18:01 36.8 C 03/05/24 17:52 86 03/05/24 17:45 86 14 84/65 L 94 03/05/24 17:44 92 03/05/24 17:31 89 L 03/05/24 17:15 87 18 88/69 L 80 L 03/05/24 16:30 91 H 17 95/63 L 68 L 03/05/24 16:03 88 17 82/70 L 95 03/05/24 15:39 85 15 99/63 L 93 03/05/24 15:31 92 03/05/24 15:30 87 L 03/05/24 15:30 85 20 99/63 L 91 03/05/24 15:27 87 19 79/47 L 92 03/05/24 15:23 93 H 20 79/47 L 88 L 03/05/24 14:30 90 22 89 L 03/05/24 14:25 94 03/05/24 13:58 93 H 18 91 03/05/24 13:11 89 23 92/61 L 03/05/24 13:11 03/05/24 12:56 90 03/05/24 12:37 36.7 C 145 H 20 76/59 L 97 O2 Del Method O2 Flow Rate 03/05/24 18:30 Oxymask 10 03/05/24 18:01 03/05/24 17:52 03/05/24 17:45 Oxymask 10 03/05/24 17:44 Oxymask 10 03/05/24 17:31 Oxymask 10 03/05/24 17:15 Nasal Cannula 6 03/05/24 16:30 03/05/24 16:03 03/05/24 15:39 03/05/24 15:31 Nasal Cannula 2 03/05/24 15:30 Room Air 03/05/24 15:30 Nasal Cannula 2 03/05/24 15:27 03/05/24 15:23 Room Air 03/05/24 14:30 Nasal Cannula 2 03/05/24 14:25 Nasal Cannula 2 03/05/24 13:58 Room Air 03/05/24 13:11 Room Air 03/05/24 13:11 Room Air 03/05/24 12:56 03/05/24 12:37 Room Air Laboratory Results Abnormal lab results 03/05/24 03/05/24 03/05/24 Range/Units 14:07 16:04 Unknown WBC 12.08 H (4.8-10.8) K/ul RBC 3.40 L (4.20-5.40) M/uL Hgb 10.8 L (12.0-16.0) g/dl Hct 32.9 L (37.0-47.0) % Neut # (Auto) 9.43 H (1.40-6.50) K/uL Potassium 5.2 H (3.5-5.1) mmol/L Chloride 109 H (98-107) mmol/L Carbon Dioxide 20 L (21-32) mmol/L BUN 34 H (6-23) mg/dl Creatinine 3.38 H (0.6-1.2) mg/dl Glucose 115 H (70-99(Fasting)) mg/dl AST 70 H (13-39) U/L Troponin I High Sens 2428.3 H* 3150.9 H* D (0-14) pg/ml Lipase 6 L (11-82) U/L Procalcitonin 2.66 H (0-0.5) ng/ml Urine Appearance Cloudy A (Clear) Urine Protein 1+ H (Negative) Urine Ketones 1+ H (Negative) Urine Bilirubin 1+ H (Negative) Ur Leukocyte Esterase 1+ H (Negative) Urine WBC (Auto) 11-20 H (0-5) /hpf U Hyaline Cast (Auto) >20 H (0-2) /lpf U Epithel Cells (Auto) 6-10 H (0-2) /hpf Hyaline Casts Present A (None Presnt) /lpf Diagnostic Findings Chest X-Ray 03/05/24 13:36 XR chest 1V portable HISTORY: Chest pain, nonspecific COMPARISON: Chest 03/03/2024. FINDINGS: No pneumothorax. The heart is mildly enlarged. There are low lung volumes. Small bilateral pleural effusions and bibasilar densities have progressed. No evidence for pulmonary edema. No acute fractures. IMPRESSION: Interval development of small bilateral pleural effusions and bibasilar densities. This may represent atelectasis from the pleural effusions or a pneumonia. ACT 112: Negative or not required by law. Electronically signed by: Pierre Talley M.D. 03/05/2024 2:46 PM Abdomen/Pelvis CT 03/05/24 14:[address] WITH IV CONTRAST CT DOSE: HISTORY: hypotension, s/p appendectomy TECHNIQUE: Multiaxial CT images of the abdomen and pelvis were performed following the use of intravenous contrast. A dose lowering technique was utilized adhering to the principles of ALARA. COMPARISON STUDY: Abdomen and pelvis CT 03/01/2024. FINDINGS: The bilateral pleural effusions and bibasilar densities are better appreciated on the same day chest CTA. No pneumoperitoneum. No pneumatosis. No acute fractures identified. The heart is mildly enlarged. There is mild to moderate body wall edema noted. Heterogeneous opacification of the liver which may be due to the timing of contrast. There is associated periportal edema. No hepatic or splenic masses. There are few splenic calcifications, as. The adrenal glands unremarkable. Pancreas enhances normally. Moderate right and moderate left cortical renal atrophy. No hydronephrosis. Small amount of ascites seen within the abdomen primarily surrounding the liver and gallbladder. Edema within the malou hepatis and surrounding the pancreas is likely due to the patient's diffuse edematous state. Calcified plaque within the normal caliber abdominal aorta. No retroperitoneal or pelvic lymphadenopathy. Mild bladder wall thickening which could be due to underdistention. The uterus and ovaries are unremarkable. No bowel wall thickening or obstruction. Prior appendectomy. No loculated fluid collections to suggest an abscess. IMPRESSION: 1. The bilateral pleural effusions and bibasilar densities are better appreciated on the same day chest CTA. 2. Interval appendectomy. No loculated fluid collections to suggest an abscess. 3. Periportal edema, body wall edema, and a small amount of ascites consistent with a diffuse edematous state. 4. Pericholecystic fluid with periportal and peripancreatic edema is also noted. This is likely due to the patient's diffuse edematous state. Recommend correlation with LFTs/pancreatic enzymes for further evaluation. 5. Heterogeneous appearance to the liver which is likely due to the timing of co ntrast. 6. No bowel wall thickening or obstruction. 7. Mild bladder wall thickening which is likely due to underdistention. Recommend correlation with urinalysis to exclude a cystitis. 8. Additional findings as described above. ACT 112: Negative or not required by law. Electronically signed by: Pierre Talley M.D. 03/05/2024 3:47 PM Chest CTA 03/05/24 14:41 CT ANGIOGRAM OF THE CHEST CLINICAL HISTORY: Dyspnea. Hypotension. COMPARISON STUDY: Chest x-ray dated 03/05/2024. TECHNIQUE: Following the IV administration of 119 cc of Optiray 320, CT angio gram of the chest was performed from the upper abdomen to the thoracic inlet utilizing the pulmonary embolus protocol. Images are reviewed in the axial, sagittal, and coronal planes. 3-D MIPS images are created and assessed. IV contrast was administered without complication. A dose lowering technique was utilized adhering to the principles of ALARA. CT DOSE: 2262.85 mGy.cm FINDINGS: Thyroid: Imaged portions of the thyroid gland are normal in size and attenuation. Thoracic aorta: The thoracic aorta is normal in caliber and demonstrates 4- vessel there is arch anatomy. No dissection is seen. Pulmonary vasculature: The pulmonary trunk is normal in caliber. There are no filling defects identified in main, lobar, or segmental pulmonary branches to suggest pulmonary embolus. Heart: The heart is mildly enlarged noting a small pericardial effusion. The coronary arteries are densely calcified. Lungs and pleural spaces: There are moderate pleural effusions, right larger than left with dependent consolidation. The trachea and central airways are clear. Intralobular septal thickening suggests fluid overload/congestive change. Mediastinum: There is no mediastinal lymphadenopathy. Lisa: Clear. Axillae: There is no axillary lymphadenopathy. Upper abdomen: There is a small volume of perihepatic and perisplenic ascites. Skeletal structures: No lytic or blastic bony lesions are seen. Soft tissues: There is body wall edema. IMPRESSION: 1. There is no evidence of pulmonary embolus in the main, lobar, or segmental pulmonary arteries. 2. Mild cardiomegaly with evidence of fluid overload/congestive change. 3. Right larger than left pleural effusions with dependent consolidation. 4. Advanced coronary artery atherosclerosis. 5. Small volume upper abdominal ascites. 6. Additional findings as above. ACT 112: Negative or not required by law. Electronically signed by: Km Henry M.D. 03/05/2024 3:59 PM Medications Administered Home Medications albuterol sulfate 90 mcg/actuation aerosol inhaler 2 puff inhalation Q4 PRN .COUGH, WHEEZING 03/01/24 [History Confirmed 03/05/24] aspirin 81 mg tablet,delayed release 81 mg PO QPM 03/01/24 [History Confirmed 03/05/24] dextroamphetamine-amphetamine ER 20 mg 24hr capsule,extend release 20 mg PO DAILY PRN .. 03/01/24 [History Confirmed 03/05/24] fluoxetine 40 mg capsule 40 mg PO QPM 03/01/24 [History Confirmed 03/05/24] insulin aspart U-100 100 unit/mL subcutaneous solution (Novolog U-100 Insulin aspart) 0 unit subcut DIRECTED 03/01/24 [History Confirmed 03/05/24] losartan 50 mg tablet 50 mg PO QPM 03/01/24 [History Confirmed 03/05/24] lovastatin 40 mg tablet 40 mg PO QPM 03/01/24 [History Confirmed 03/05/24] multivitamin-ferrous fumarate-folic acid 18 mg-400 mcg tablet (Centrum Complete) 1 tab PO DAILY 03/01/24 [History Confirmed 03/05/24] ondansetron HCl 4 mg tablet 4 mg PO Q8 PRN Nausea 03/01/24 [History Confirmed 03/05/24] semaglutide 1 mg/dose (4 mg/3 mL) subcutaneous pen injector (Ozempic) 1 mg subcut .QFRIDAY 03/01/24 [History Confirmed 03/05/24] oxycodone-acetaminophen 5 mg-325 mg tablet 1 tab PO Q6H PRN pain #10 tabs 03/02/24 [Rx Confirmed 03/05/24] cefdinir 300 mg capsule 300 mg PO BID 5 days #10 caps 03/03/24 [Rx Confirmed 03/05/24] Active Medications Albuterol (Albuterol Hfa 8 Gm Inhaler) 2 puffs INH Q4R PRN PRN Reason: .COUGH, WHEEZING Stop: 04/04/24 18:30 Aspirin (Aspirin 81 Mg Ectab) 81 mg PO QPM KANDI Stop: 04/04/24 20:59 Dextrose (Dextrose 50% 50 Ml Syringe) 25 - 50 ml IV UD PRN; Protocol PRN Reason: Hypoglycemia Protocol Stop: 04/04/24 19:38 Fluoxetine HCl (Fluoxetine Hcl 20 Mg Cap) 40 mg PO QPM KANDI Stop: 04/04/24 20:59 Glucagon (Glucagon For Inj 1 Mg Vial) 1 mg SQ UD PRN; Protocol PRN Reason: Hypoglycemia Protocol Stop: 04/04/24 19:38 Glucose (Glucose 40% Gel 15 Gm Tube) 15 - 30 gm PO UD PRN; Protocol PRN Reason: Hypoglycemia Protocol Stop: 04/04/24 19:38 Glucose (Glucose 10 Tab/Tube) 4 - 8 tab PO UD PRN; Protocol PRN Reason: Hypoglycemia Treatment Stop: 04/04/24 19:38 Heparin Sodium/Dextrose (Heparin Sodium/Dextrose) 25,000 units in 500 mls @ 14 mls/hr IV .Q24H KANDI; Protocol Stop: 03/06/24 04:00 Last Titration: 03/05/24 19:55 Dose: 700 units/hr, 14 mls/hr Cefepime HCl 2,000 mg/ Syringe 20 mls @ 5 mls/min IV Q12H [facility]; Protocol Stop: 03/07/24 19:59 Metronidazole (Flagyl) 500 mg in 100 mls @ 100 mls/hr IV Q8H [facility]; Protocol Stop: 03/07/24 19:59 Insulin Aspart (Insulin, Rapid-Acting Pump) 1 each SC ACHS [facility]; Protocol Stop: 04/04/24 20:59 Insulin Aspart (Insulin Aspart 100 Units/Ml Vial) 0 units SC PRN PRN PRN Reason: Insulin (Rapid-Acting) Pump Refill Stop: 04/04/24 19:38 Lovastatin (Lovastatin 20 Mg Tab) 40 mg PO QPM [facility] Stop: 04/04/24 20:59 Miscellaneous (Stop Order) 1 each N/A ONE ONE Stop: 03/06/24 04:01 Miscellaneous (Continuous Glucose Monitor) 0 each N/A ACHS [facility] Stop: 04/04/24 20:59 Miscellaneous (Carbohydrates For Hypoglycemia ) 15 - 30 gm PO UD PRN PRN Reason: Hypoglycemia Protocol Stop: 04/04/24 19:38 Ondansetron HCl (Ondansetron Inj 2 Mg/Ml 2 Ml Vial) 4 mg IV Q6H PRN PRN Reason: Nausea And Vomiting Stop: 04/04/24 19:58 Oxycodone/Acetaminophen (Oxycodone/Acetaminophen 5mg/325mg Tab) 1 tab PO Q6H PRN PRN Reason: pain Stop: 03/19/24 18:30 ECG Additional Comments: Normal sinus rhythm Right bundle branch block Abnormal ECG No previous ECGs available Coding Level of Care Code 62719 CRITICAL CARE 1ST 30-74M Diagnoses Shock R57.9 Non-ST elevation MS (NSTEMI) I21.4 Acute respiratory failure with hypoxia J96.01 Acute renal failure N17.9 Acute renal failure type: unspecified Sepsis A41.9; R65.21; N17.9 Acute renal failure type: unspecified Sepsis acute organ dysfunction status: with acute organ dysfunction Sepsis type: sepsis due to unspecified organism Severe sepsis acute organ dysfunction type: acute renal failure Severe sepsis shock status: with septic shock UTI due to Klebsiella species N39.0; B96.89 (4) Acute renal failure Acute renal failure type: unspecified Qualified Code(s): N17.9 - Acute kidney failure, unspecified (5) Sepsis Acute renal failure type: unspecified Sepsis acute organ dysfunction status: with acute organ dysfunction Sepsis type: sepsis due to unspecified organism Severe sepsis acute organ dysfunction type: acute renal failure Severe sepsis shock status: with septic shock Qualified Code(s): A41.9 - Sepsis, unspecified organism; R65.21 - Severe sepsis with septic shock; N17.9 - Acute kidney failure, unspecified
[2024-03-05] MEDS: metroNIDAZOLE 500 MG/100 ML BAG IV SCH (20:47)
[2024-03-05] MEDS: ASPIRIN 81 MG ECTAB PO SCH (20:47)
[2024-03-05] MEDS: FLUoxetine HCL 20 MG CAP PO SCH (20:48)
[2024-03-05] MEDS: DOCUSATE SODIUM 100 MG CAP PO SCH (20:48)
[2024-03-05] MEDS: LOVASTATIN 20 MG TAB PO SCH (20:48)
[2024-03-05 20:49] LABS: Base Excess VBG -10.2 mEq/L; HCO3 VBG 18 mmol/L; Oxygen Saturation VBG < 60.0 %; PCO2 VBG 45 mmHg (38-50); PO2 VBG 29 mmHg
[2024-03-05] MEDS: INSULIN, Rapid-Acting PUMP SC SCH (20:59)
[2024-03-05] MEDS: Continuous Glucose Monitor SCH (20:59)
[2024-03-05] MEDS: CEFDINIR 300 MG CAP PO SCH (21:00)
[2024-03-05] MEDS: oxyCODONE/ACETAMINOPHEN 5mg/325mg TAB PO PRN (21:33)
[2024-03-06 02:16] LABS: Basophils # (auto) 0.03 K/uL (0.00-0.20); Basophils % (auto) 0.2 %; Eosinophils # (auto) 0.05 K/uL (0.00-0.50); Eosinophils % (auto) 0.4 %; Hematocrit (blood only) 28.2 % (37.0-47.0); Hemoglobin 9.1 g/dl (12.0-16.0); Immature Granulocytes % (auto) 0.8 %; Lymphocytes # (auto) 1.93 K/uL (1.20-3.40); Lymphocytes % (auto) 16.1 %; Mean Corpuscular Hemoglobin 31.6 pg (25.0-34.0); Mean Corpuscular Hgb Conc 32.3 g/dL (32.0-36.0); Mean Corpuscular Volume 97.9 fL (80.0-100.0); Mean Platelet Volume 10.3 fL (9.4-12.4); Monocytes # (auto) 0.91 K/uL (0.11-0.59); Monocytes % (auto) 7.6 %; Neutrophils % (auto) 74.9 %; Nucleated RBC # (auto) 0.04 K/uL (0.00-0.12); Nucleated RBC % (auto) 0.3 %; Platelet Count 293 K/uL (130-400); RDW Coefficient of Variation 13.1 % (11.5-14.5); RDW Standard Deviation 47.3 fL (36.4-46.3); Red Blood Count 2.88 M/uL (4.20-5.40); White Blood Count 12.02 K/ul (4.8-10.8)
[2024-03-06] MEDS: HYDROmorphone INJ 0.5 MG/0.5 ML SYR IV PRN (02:21)
[2024-03-06 02:27] LABS: Albumin Globulin Ratio 1.6 (0.9-2); Albumin Level 3.2 gm/dl (3.4-5.0); BUN Creatinine Ratio 11.2 (10-20); Bilirubin,Total 0.4 mg/dl (0.2-1.0); Creatinine Clr Calc Pharmacy 19.2 ml/min; Est GFR (African American) 18.3 ml/min; Est GFR (Non-African American) 15.8 ml/min; Magnesium 2.3 mg/dl (1.7-2.4); Phosphorus 4.1 mg/dl (2.5-4.9); Potassium 4.7 mmol/L (3.5-5.1); Total Protein 5.2 gm/dl (6.0-8.3)
[2024-03-06 02:35] LABS: Troponin I High Sensitivity 5633.7 pg/ml (0-14)
[2024-03-06] MEDS: CEFEPIME 1,000 MG in SYRINGE 0 ML IV SCH (05:18)
--- NOTE | 2024-03-06 07:32 | Critical Care Progress Note ---
Date of Service March 06, 2024 Assessment & Plan (1) Type 1 diabetes mellitus: (2) Shock: (3) Right ventricular dysfunction: (4) Non-ST elevation CT (NSTEMI): (5) Acute respiratory failure with hypoxia: (6) Acute renal failure: (7) Sepsis: Plan Reason Critically Ill: 58 YOF presents to the ICU with shock- multifactorial to include sepsis, cardiogenic, and possibly intravascular volume dehydration- noted to have significantly elevated troponin and ECG changes but without STEMI. To ICU to obtain ECHO for RWMA follow hemodynamics and support as it clinically presents itself. Her BP is improved since arrival to ICU Neuro - NO acute needs CAM ICU: Negative - no acute needs at this time Cardiac - NSTEMI, HTN, s/p Shock - Patient presents with SIRS criteria with presumed source continuing to be urine, however now with elevated HScTNI and ECG changes (RBBB and twave changes- inferior) but without STEMI -Bilateral pleural effusion and peripheral edema notable in abdomen and liver congestion- consistent with a more right sided failure/volume overload picture - Received 2L crystalloid in ER - BNP is 365 - Shock with organ dysfunction - lungs, heart, kidneys - multifactorial -- Pulmonary hypertension PASP 40 mmHg with enlarged RA and RV Could be chronic, she will ultimately benefit from a right heart cath and possibly left heart cath given the elevated troponins Respiratory -acute hypoxic respiratory failure, pleural effusions - Continue support with Oxygen- If worsens diurese as hemodynamics allow and transition to BiPAP GI - small volume ascites, congestion with periportal/pericholecystic fluid - LFT - AST elevated to 70 with normal ALT- lipase is 6, as well as no epigastric tenderness - likely secondary to edematous state RENAL/LYTES - ARF on CKD, -- NAGMA Likely sec to RO on CKD, lactate within normal limit -- RO on CKD Monitor BUNs/creatinine Avoid nephrotoxic medication - UTI - See below ENDO - DMI with NovoLog insulin pump - patient may continue pump with ACH/HS checks - clear diet for now ICU hyperglycemia protocol HEME - -- Normocytic anemia Monitor H&H ID - Sepsis (SIRS plus source) with evidence of end organ dysfunction - As above can't exclude sepsis however multifactorial- PCT elevated, leukocytosis, previous urine culture + with klebsiella - continue cefepime and flagyl - MRSA swab pending --Prophylaxis VTE: Heparin drip GI: None Lines: Peripheral Diet: Renal Plan: In/out: +1.1 L, urine output 500 mL Patient's bicarb is 18, this could be from RO on CKD. Consideration of bicarb p.o. would be made. I will wait for the nephrology to see the patient and then decide We plan to do thoracentesis on the right side today. Heparin has been hold since 4:30 AM. Case was discussed with cardiology. No plan for any intervention regarding catheterization given elevated creatinine. Continue with empiric antibiotics for 48 hours. Please note the above document was generated using voice recognition software. It may contain grammatical, syntax or spelling errors.Any formal questions or concerns about the content, text or information contained within the body of this dictation should be directly addressed to the provider for clarification. Admission and Anticipated Discharge Date Admission Date: March 05, 2024 Subjective Patient seen and examined at bedside. No acute distress, no adverse events overnight She was saturating 99% on 4 L nasal cannula, I went down to 2 L Denied any headache, no chest pain, no nausea or vomiting Complain of mild abdominal tenderness at the site of the incision. No dysuria, or diarrhea Denies any dizziness or lightheadedness Review of Systems 2 Review of Systems: All systems reviewed & are unremarkable except as noted in Subjective Physical Exam 2 Physical Exam: Constitutional: No acute distress HEENT: EOMI, PERRLA Respiratory system: Decreased air entry bilaterally, no wheeze, no rhonchi, mild crackles bilateral lower lobes CVS: S1-S2 positive, no murmurs or gallops Abdomen: Soft, nontender, nondistended, positive bowel sounds x4 Extremities: +2 pulses bilaterally radialis/ dorsalis pedis, no cyanosis, +1 pitting edema bilateral lower extremity Neuro: Awake alert oriented x3 Psych: Normal mood and affect G/U: No Patterson Skin: no rashes, warm and dry Lymphatic: no cervical or axillary lymphadenopathy Results & Data Results & Data Vital Signs (Past 12 Hours) Vital Signs Temp Pulse Pulse Resp BP BP Pulse Ox 03/06/24 01:30 111/75 03/06/24 01:24 82 13 100 03/06/24 01:03 81 14 99 03/06/24 01:01 118/96 03/06/24 01:01 118/96 03/06/24 01:01 118/96 03/06/24 01:01 118/96 03/06/24 00:42 72 19 99 03/06/24 00:39 83 14 100 03/06/24 00:03 83 16 100 03/06/24 00:00 109/73 03/06/24 00:00 109/73 03/05/24 23:45 83 16 100 03/05/24 23:00 82 15 100 03/05/24 23:00 109/81 03/05/24 23:00 109/81 03/05/24 22:30 120/84 03/05/24 22:12 84 19 97 03/05/24 22:06 87 16 98 03/05/24 22:00 36.6 C 119/85 03/05/24 21:57 84 15 98 03/05/24 21:31 150/89 H 03/05/24 21:31 150/89 H 03/05/24 21:31 150/89 H 03/05/24 21:30 84 21 95 03/05/24 21:01 100/54 L 03/05/24 21:01 100/54 L 03/05/24 21:00 87 18 03/05/24 20:56 113/85 03/05/24 20:56 113/85 03/05/24 20:54 89 18 94 03/05/24 20:03 83 15 100 03/05/24 20:00 122/68 03/05/24 20:00 122/68 03/05/24 20:00 122/68 03/05/24 19:57 73 15 98 03/05/24 19:43 36.4 C 88 18 100/63 98 03/05/24 19:38 113/78 O2 Del Method O2 Flow Rate 03/06/24 01:30 03/06/24 01:24 03/06/24 01:03 03/06/24 01:01 03/06/24 01:01 03/06/24 01:01 03/06/24 01:01 03/06/24 00:42 03/06/24 00:39 03/06/24 00:03 03/06/24 00:00 03/06/24 00:00 03/05/24 23:45 03/05/24 23:00 03/05/24 23:00 03/05/24 23:00 03/05/24 22:30 03/05/24 22:12 03/05/24 22:06 03/05/24 22:00 03/05/24 21:57 03/05/24 21:31 03/05/24 21:31 03/05/24 21:31 03/05/24 21:30 03/05/24 21:01 03/05/24 21:01 03/05/24 21:00 03/05/24 20:56 03/05/24 20:56 03/05/24 20:54 03/05/24 20:03 03/05/24 20:00 03/05/24 20:00 03/05/24 20:00 03/05/24 19:57 03/05/24 19:43 Nasal Cannula 6 03/05/24 19:38 Laboratory Results 03/06/24 01:52 03/06/24 01:52 Coding Level of Care Code 94854 SUB INP/OBS CARE 3/50MIN Diagnoses Type 1 diabetes mellitus E10.69 Diabetes mellitus complication status: with other specified complication Shock R57.9 Right ventricular dysfunction I51.9 Non-ST elevation CT (NSTEMI) I21.4 Acute respiratory failure with hypoxia J96.01 Acute renal failure N17.9 Acute renal failure type: unspecified Sepsis A41.9; R65.21; N17.9 Acute renal failure type: unspecified Sepsis acute organ dysfunction status: with acute organ dysfunction Sepsis type: sepsis due to unspecified organism Severe sepsis acute organ dysfunction type: acute renal failure Severe sepsis shock status: with septic shock (1) Type 1 diabetes mellitus Diabetes mellitus complication status: with other specified complication Qualified Code(s): E10.69 - Type 1 diabetes mellitus with other specified complication (6) Acute renal failure Acute renal failure type: unspecified Qualified Code(s): N17.9 - Acute kidney failure, unspecified (7) Sepsis Acute renal failure type: unspecified Sepsis acute organ dysfunction status: with acute organ dysfunction Sepsis type: sepsis due to unspecified organism S evere sepsis acute organ dysfunction type: acute renal failure Severe sepsis shock status: with septic shock Qualified Code(s): A41.9 - Sepsis, unspecified organism; R65.21 - Severe sepsis with septic shock; N17.9 - Acute kidney failure, unspecified
--- NOTE | 2024-03-06 08:31 | Electrocardiogram Report ---
Test Reason : Blood Pressure : */* mmHG Vent. Rate : 87 BPM Atrial Rate : 87 BPM P-R Int : 126 ms QRS Dur : 128 ms QT Int : 424 ms P-R-T Axes : 46 64 -7 degrees QTcB Int : 510 ms Normal sinus rhythm Right bundle branch block T-wave inversion in Inferior leads , consider ischemia T-wave inversion in Anterior leads , consider ischemia Abnormal ECG When compared with ECG of 05-Mar-2024 16:53, No significant change Confirmed by Eduardo Limon ([id number]) on 03/06/2024 8:31:08 AM Referred By: REFERRED SELF Confirmed By: Eduardo Limon
--- NOTE | 2024-03-06 08:32 | Electrocardiogram Report ---
Test Reason : Blood Pressure : */* mmHG Vent. Rate : 91 BPM Atrial Rate : 91 BPM P-R Int : 132 ms QRS Dur : 124 ms QT Int : 386 ms P-R-T Axes : 50 72 -39 degrees QTcB Int : 474 ms Normal sinus rhythm Right bundle branch block T wave abnormality, consider inferior ischemia T wave abnormality, consider anterior ischemia Abnormal ECG When compared with ECG of 05-Mar-2024 12:45, No significant change Confirmed by Eduardo Limon ([id number]) on 03/06/2024 8:32:20 AM Referred By: REFERRED SELF Confirmed By: Eduardo Limon
--- NOTE | 2024-03-06 08:33 | Electrocardiogram Report ---
Test Reason : Blood Pressure : */* mmHG Vent. Rate : 62 BPM Atrial Rate : 62 BPM P-R Int : 120 ms QRS Dur : 132 ms QT Int : 458 ms P-R-T Axes : 28 58 -39 degrees QTcB Int : 464 ms Normal sinus rhythm Right bundle branch block T wave abnormality, consider inferior ischemia T wave abnormality, consider anterior ischemia Abnormal ECG When compared with ECG of 29-Jul-2020 12:28, No significant change Confirmed by Eduardo Limon ([id number]) on 03/06/2024 8:33:10 AM Referred By: REFERRED SELF Confirmed By: Eduardo Limon
--- NOTE | 2024-03-06 09:01 | Nephrology Consultation ---
Date of Consultation March 06, 2024 Assessment & Plan (1) Acute renal failure: improving nonoliguric stage 2 RO on CKD3 likely from ischemia/prerenal process > however likely w/ underlying ATN (renal function was already worsening prior to hospital d/c) and at risk for further worsening after IV contrast dye for obligate CTA chest -daily bmp -neither IVF nor diuresis indicated currently -continue strict I/O; agree w/ cautiously starting diet; no fluid limit indicated -continue to avoid nephrotoxins -no indication at this time for acute dialysis though cannot rule out need this admission just yet (2) CKD (chronic kidney disease) stage 3, GFR 30-59 ml/min: as above; needs to reest in CKD clinic (3) Shock: stabilized w/ abtx (cefepime, flagyl), supportive care (4) Right ventricular dysfunction: as per cardiology; ? role for VA[facility] untreated History of Present Illness Reason for Consultation: RO on CKD, fluid overload Requesting Physician: Dr Crespo Attending Physician: Artie Lantigua DO History of Present Illness 58 y/o F whom I'm asked to see for RO on CKD w/ fluid overload was admitted yesterday afternoon to the ICU w/ multifactorial shock w/ elements of sepsis, cardiogenic shock, and concern for intravascular volume depletion in the setting of total body overload. She is s/p 03/02 appendectomy for acute appendicitis and was d/c home 03/03 on cefdinir for bailey sensitive K pneumoniae UTI but returned to ER yesterday d/t vomiting with minimal po intake since hospital d/c. Her blood pressures in ER w/ 80/60 w/ presenting creatinine 3.8, up from 1.8 at hospital discharge. Past medical history includes CKD 3 w/ 200 mg albuminuria and baseline creatinine of about 1.4, DM1 dx'd age 8 y/o, HTN since her late 20s dx'd after daughter's , sleep apnea not on CPAP, hx of Graves dz but on no meds currently, ADHD and anxiety/depression. Endorses significant memory deficits in the wake of 2021 covid and has her give much of the history. Hx of intermittent but chronic issues w/ abnormal renal function since her late 20s in the wake of . No FH of CKD/ESRD. Despite her longstanding hx of DM, she denies problems such as gastroparesis or retinopathy. She had some postoperative hypotension after the appendectomy and received aggressive fluid resuscitation reportedly. After her discharge home on 03/03, she was extremely tired and was able to get out of bed briefly on 03/04 but was exhausted after bathing that day. she began having nonbloody emesis 03/04 in PM and was unable to keep any food or drink down. She took her medications on 03/04 including cefdinir but not 03/05. She did not take losartan since she'd been instructed not to resume until 03/07 or as directed. no NSAID use. Her blood pressure and sats were low at home on 03/05 in the AM per her . no dypsnea, no cough or tachycardia, no edema, no uncontrolled pain, no chest pain or palpitations, no dysuria or gross hematuria. In addition to elevated creatinine, CXR on presentation notable for BL pleural effusion; CTA chest showed no PE but some pulmonary vascular congestion. ECG showed new RBBB and her troponins were elevated; she had full dose ASA and was started on a heparin gtt. She had about 1.3 L IVF in the ER and was admitted to the ICU for monitoring treatment of shock, renal failure, concern about cardiac function and possible infection. R thoracentesis is planned; cardiology is following but no urgent cardiac cath planned considering renal function. Her BP stabilized overnight. Her oxygen was weaned from 6-10L down to RA. This am, creatinine is 3.1; she feels tired and weak but no further N/v, no dysuria; has been out of bed to toilet. Blood, urine, and now pleural fluid cultures are pending. Allergies Allergy/AdvReac Type Severity Reaction Status Date / Time CHAPARRO Inhibitors Allergy Intermediate cough Verified 03/01/24 23:34 Penicillins Allergy Intermediate rash Verified 03/01/24 23:34 Home Medications Medication Instructions Recorded Confirmed Type albuterol sulfate 90 mcg/actuation 2 puff inhalation Q4 PRN .COUGH, 03/01/24 03/05/24 History aerosol inhaler WHEEZING aspirin 81 mg tablet,delayed 81 mg PO QPM 03/01/24 03/05/24 History release dextroamphetamine-amphetamine ER 20 mg PO DAILY PRN .. 03/01/24 03/05/24 History 20 mg 24hr capsule,extend release fluoxetine 40 mg capsule 40 mg PO QPM 03/01/24 03/05/24 History insulin aspart U-100 100 unit/mL 0 unit subcut DIRECTED 03/01/24 03/05/24 History subcutaneous solution (Novolog U-100 Insulin aspart) losartan 50 mg tablet 50 mg PO QPM 03/01/24 03/05/24 History lovastatin 40 mg tablet 40 mg PO QPM 03/01/24 03/05/24 History multivitamin-ferrous 1 tab PO DAILY 03/01/24 03/05/24 History fumarate-folic acid 18 mg-400 mcg tablet (Centrum Complete) ondansetron HCl 4 mg tablet 4 mg PO Q8 PRN Nausea 03/01/24 03/05/24 History semaglutide 1 mg/dose (4 mg/3 mL) 1 mg subcut .QFRIDAY 03/01/24 03/05/24 History subcutaneous pen injector (Ozempic) oxycodone-acetaminophen 5 mg-325 1 tab PO Q6H PRN pain #10 tabs 03/02/24 03/05/24 Rx mg tablet cefdinir 300 mg capsule 300 mg PO BID 5 days #10 caps 03/03/24 03/05/24 Rx Patient History Medical History (Updated 03/06/24 @ 13:19 by Dayami Mendez MD, PhD) CKD (chronic kidney disease) stage 3, GFR 30-59 ml/min Cervical radiculopathy DM (diabetes mellitus), type 1 Surgical History Hx of eye surgery History of female sterilization History of carpal tunnel surgery Social History Smoking Status: Never smoker Second Hand Exposure: No; Do You Dip or Chew Tobacco: No; Hx Alcohol Use: Yes Alcohol type: wine Hx Substance Use: No Preferred Language: Greek Communication Ability: Effective Forensic Technician Required: No Beliefs That Will Affect Care: None Current Living Situation: Spouse Feels Safe at Home: Yes Safety Concerns: Feels Safe At This Time Assistive Devices: Other Review of Systems 2 Review of Systems: All systems reviewed & are unremarkable except as noted in HPI & below Physical Exam 2 Constitutional: well developed, well nourished, + obese and cooperative; no acute distress Eyes: EOM intact bilaterally ENMT: Ears: no external ear abnormality Nose: no external nose abnormality Mouth: + dry oral mucous membranes Neck: no nuchal rigidity Respiratory: normal respiratory effort Auscultation: + diminished lung sounds (shin BL bases) Cardiovascular: RRR, no murmur, no edema Gastrointestinal (Abdomen): Inspection/Auscultation: + abdominal wall ecchymosis and + hypoactive bowel sounds (slight); no abdominal edema P ercussion/Palpation: + abdomen tender (near surgical sites w/ moderate palpation) and abdomen soft; no ascites Musculoskeletal: Extremities: strength 5/5 throughout Skin: no rashes, warm and dry Neurologic: garza, fluent speech, no tremor Psychiatric: Orientation: alert and oriented x 3 Results & Data Vital Signs (Past 12 Hours) Vital Signs Temp Pulse Resp BP Pulse Ox 03/06/24 01:30 111/75 03/06/24 01:24 82 13 100 03/06/24 01:03 81 14 99 03/06/24 01:01 118/96 03/06/24 01:01 118/96 03/06/24 01:01 118/96 03/06/24 01:01 118/96 03/06/24 00:42 72 19 99 03/06/24 00:39 83 14 100 03/06/24 00:03 83 16 100 03/06/24 00:00 109/73 03/06/24 00:00 109/73 03/05/24 23:45 83 16 100 03/05/24 23:00 82 15 100 03/05/24 23:00 109/81 03/05/24 23:00 109/81 03/05/24 22:30 120/84 03/05/24 22:12 84 19 97 03/05/24 22:06 87 16 98 03/05/24 22:00 36.6 C 119/85 03/05/24 21:57 84 15 98 03/05/24 21:31 150/89 H 03/05/24 21:31 150/89 H 03/05/24 21:31 150/89 H 03/05/24 21:30 84 21 95 03/05/24 21:01 100/54 L 03/05/24 21:01 100/54 L 03/05/24 21:00 87 18 03/05/24 20:56 113/85 03/05/24 20:56 113/03/05/24 20:54 89 18 94 Laboratory Results 03/06/24 01:52 03/06/24 01:[address] chest/abd/pelvis w/ IV con 1. There is no evidence of pulmonary embolus in the main, lobar, or segmental pulmonary arteries. 2. Mild cardiomegaly with evidence of fluid overload/congestive change. 3. Right larger than left pleural effusions with dependent consolidation. 4. Advanced coronary artery atherosclerosis. 5. Small volume upper abdominal ascites. 1. The bilateral pleural effusions and bibasilar densities are better appreciated on the same day chest CTA. 2. Interval appendectomy. No loculated fluid collections to suggest an abscess. 3. Periportal edema, body wall edema, and a small amount of ascites consistent with a diffuse edematous state. 4. Pericholecystic fluid with periportal and peripancreatic edema is also noted. This is likely due to the patient's diffuse edematous state. Recommend correlation with LFTs/pancreatic enzymes for further evaluation. 5. Heterogeneous appearance to the liver which is likely due to the timing of contrast. 6. No bowel wall thickening or obstruction. 7. Mild bladder wall thickening which is likely due to underdistention. Recommend correlation with urinalysis to exclude a cystitis. 8. Additional findings as described above. TTE EF 56%; severely dilated RV w/ severely reduced RV fnxn and e/o RV pressure/OL; bubble study slows large R>L intratrial shunt (1) Acute renal failure Acute renal failure type: unspecified Qualified Code(s): N17.9 - Acute kidney failure, unspecified
[2024-03-06] MEDS: ACETAMINOPHEN 325 MG TAB PO PRN (09:16)
--- NOTE | 2024-03-06 09:36 | Cardiology Consultation ---
Date of Consultation March 06, 2024 Assessment & Plan (1) Non-ST elevation [place] (NSTEMI): (2) Right ventricular dysfunction: (3) Acute renal failure: (4) Acute respiratory failure with hypoxia: (5) Sepsis: (6) UTI due to Klebsiella species: Plan 58-year-old female present to the hospital with multifactorial shock including sepsis, severe RV dysfunction, intravascular volume depletion in the setting of intractable nausea and vomiting. Elevated high-sensitivity troponin more likely reflective of demand ischemia rather than plaque rupture event. No left ventricular regional wall motion abnormalities with borderline hyperdynamic LV function on echocardiogram. Indirect evidence (septal flattening) of right ventricular pressure and volume overload noted. Chronicity of RV dilation/dysfunction unclear at this time, however, normal RV size and function noted per echocardiogram in 2009. Total body volume overload present with evidence of intravascular volume depletion. Hold diuretic therapy at this time. Monitor I's and O's, daily weight, GFR, and electrolytes. Repeat limited echo with bubble study will be performed for assessment of possible intracardiac shunt. Untreated sleep apnea per review of records. Consider addition of CPAP. Cardiac catheterization deferred at this time due to acute renal insufficiency. Proceed with right-sided thoracentesis to optimize respiratory status today. Cardiac catheterization will be considered as hospital course progresses pending ongoing assessment of renal function and respiratory status. Continue IV heparin, aspirin, and statin therapy. Treatment of sepsis, Klebsiella UTI as per direction of internal med icine/critical care. I spent a total of 75 minutes on the date of service in preparation, delivery, and documentation of the care provided to this patient, excluding any time spent in the performance of separately billed services. History of Present Illness Reason for Consultation: NSTEMI Requesting Physician: Dr. Marilin Crespo Attending Physician: Artie Lantigua DO History of Present Illness 58-year-old female presented to the emergency department with intractable nausea and vomiting, hypotension, and acute renal failure. Patient underwent appendectomy 03/02/2024. Postoperative hypotension, hypoxia, and acute on chronic renal insufficiency noted. She was discharged to home 03/03/2024. Reports significant nausea and vomiting. Denies chest pain or shortness of b reath. Hypotensive upon arrival to the ER with blood pressure 79/47mmHg. treated with 2 L of normal saline with improvement of blood pressure. Serum creatinine 3.38 up from 1.82 03/03/2024. Blood pressure improved with IV hydration in ER. Nausea has resolved with addition of Pepcid and Zofran. Elevated high-sensitivity troponin on admission peaking at 5633. Bedside echo reveals severe right ventricular dilation and RV dysfunction with septal flattening suggesting right ventricular pressure and volume overload. Normal IVC size and collapse suggesting normal right atrial pressure of [address] of the chest negative for PE, however, significant bilateral pleural effusions (right greater than left) visualized. Patient improved clinically overnight. Systolic blood pressure within normal range. Weaning supplemental oxygen. Patient denies chest discomfort or shortness of breath at rest. Reports mild orthopnea when lying supine. Also notes mild discomfort near her surgical abdominal site. Denies a history of coronary disease, congestive heart failure, or rheumatic fever as a child. History significant for type 1 diabetes x 50 years well-controlled with insulin pump as well as CKD stage III. Allergies Allergy/AdvReac Type Severity Reaction Status Date / Time CHAPARRO Inhibitors Allergy Intermediate cough Verified 03/01/24 23:34 Penicillins Allergy Intermediate rash Verified 03/01/24 23:34 Home Medications Medication Instructions Recorded Confirmed Type albuterol sulfate 90 mcg/actuation 2 puff inhalation Q4 PRN .COUGH, 03/01/24 03/05/24 History aerosol inhaler WHEEZING aspirin 81 mg tablet,delayed 81 mg PO QPM 03/01/24 03/05/24 History release dextroamphetamine-amphetamine ER 20 mg PO DAILY PRN .. 03/01/24 03/05/24 History 20 mg 24hr capsule,extend release fluoxetine 40 mg capsule 40 mg PO QPM 03/01/24 03/05/24 History insulin aspart U-100 100 unit/mL 0 unit subcut DIRECTED 03/01/24 03/05/24 History subcutaneous solution (Novolog U-100 Insulin aspart) losartan 50 mg tablet 50 mg PO QPM 03/01/24 03/05/24 History lovastatin 40 mg tablet 40 mg PO QPM 03/01/24 03/05/24 History multivitamin-ferrous 1 tab PO DAILY 03/01/24 03/05/24 History fumarate-folic acid 18 mg-400 mcg tablet (Centrum Complete) ondansetron HCl 4 mg tablet 4 mg PO Q8 PRN Nausea 03/01/24 03/05/24 History semaglutide 1 mg/dose (4 mg/3 mL) 1 mg subcut .QFRIDAY 03/01/24 03/05/24 History subcutaneous pen injector (Ozempic) oxycodone-acetaminophen 5 mg-325 1 tab PO Q6H PRN pain #10 tabs 03/02/24 03/05/24 Rx mg tablet cefdinir 300 mg capsule 300 mg PO BID 5 days #10 caps 03/03/24 03/05/24 Rx Patient History Medical History Cervical radiculopathy DM (diabetes mellitus), type 1 Surgical History Hx of eye surgery History of female sterilization History of carpal tunnel surgery Social History Smoking Status: Never smoker Second Hand Exposure: No; Do You Dip or Chew Tobacco: No; Hx Alcohol Use: Yes Alcohol type: wine Hx Substance Use: No Preferred Language: Luxembourger Communication Ability: Effective Cut Filer Required: No Beliefs That Will Affect Care: None Current Living Situation: Spouse Feels Safe at Home: Yes Safety Concerns: Feels Safe At This Time Assistive Devices: None Review of Systems Review of Systems: All systems reviewed & are unremarkable except as noted in Subjective Physical Exam Constitutional: well nourished; no acute distress Respiratory: no respiratory distress, no labored breathing and no retractions Auscultation: + diminished lung sounds (Bases bilateral); no rales, no rhonchi and no wheezes Cardiovascular: Rate/Rhythm: regular rate and regular rhythm Heart Sounds: normal S1 and normal S2; no murmur Vessels: femoral pulses present and radial pulses present; no JVD and no carotid bruit Extremities: no edema Gastrointestinal (Abdomen): Inspection/Auscultation: normal bowel sounds; abdomen not distended Percussion/Palpation: + abdomen tender and abdomen soft; no guarding Neurologic: CN's II-XI intact bilaterally and moves all extremities; no focal motor deficits Results & Data Vital Signs (Past 12 Hours) Vital Signs Temp Pulse Resp BP Pulse Ox 03/06/24 01:30 111/75 03/06/24 01:24 82 13 100 03/06/24 01:03 81 14 99 03/06/24 01:01 118/96 03/06/24 01:01 118/96 03/06/24 01:01 118/96 03/06/24 01:01 118/96 03/06/24 00:42 72 19 99 03/06/24 00:39 83 14 100 03/06/24 00:03 83 16 100 03/06/24 00:00 109/73 03/06/24 00:00 109/73 03/05/24 23:45 83 16 100 03/05/24 23:00 82 15 100 03/05/24 23:00 109/81 03/05/24 23:00 109/81 03/05/24 22:30 120/84 03/05/24 22:12 84 19 97 03/05/24 22:06 87 16 98 03/05/24 22:00 36.6 C 119/85 03/05/24 21:57 84 15 98 03/05/24 21:31 150/89 H 03/05/24 21:31 150/89 H 03/05/24 21:31 150/89 H Laboratory Results Cardiac Enzymes 03/05/24 03/05/24 03/05/24 Range/Units 14:07 14:07 16:04 AST 70 H (13-39) U/L Troponin I High Sens 2428.3 H* Cancelled 3150.9 H* D (0-14) pg/ml B-Natriuretic Peptide (0-100) pg/ml 03/05/24 03/06/24 03/06/24 Range/Units 20:40 01:52 08:46 AST 59 H (13-39) U/L Troponin I High Sens 4529.3 H* D 5633.7 H* D 4124.7 H* D (0-14) pg/ml B-Natriuretic Peptide 398 H (0-100) pg/ml Coagulation 03/05/24 03/05/24 03/05/24 Range/Units 14:07 18:28 20:40 APTT Cancelled 29 B-Natriuretic Peptide 398 H (0-100) pg/ml CBC 03/05/24 03/06/24 Range/Units 14:07 01:52 WBC 12.08 H 12.02 H (4.8-10.8) K/ul RBC 3.40 L 2.88 L (4.20-5.40) M/uL Hgb 10.8 L 9.1 L (12.0-16.0) g/dl Hct 32.9 L 28.2 L (37.0-47.0) % Plt Count 322 293 (130-400) K/uL Neut # (Auto) 9.43 H 9.00 H (1.40-6.50) K/uL Lymph # (Auto) 2.00 1.93 (1.20-3.40) K/uL [place] # (Auto) 0.57 0.91 H (0.11-0.59) K/uL Eos # (Auto) 0.00 0.05 (0.00-0.50) K/uL Baso # (Auto) 0.01 0.03 (0.00-0.20) K/uL Comprehensive Metabolic Panel 03/05/24 03/06/24 Range/Units 14:07 01:52 Sodium 139 138 (136-145) mmol/L Potassium 5.2 H 4.7 (3.5-5.1) mmol/L Chloride 109 H 112 H (98-107) mmol/L Carbon Dioxide 20 L 18 L (21-32) mmol/L BUN 34 H 35 H (6-23) mg/dl Creatinine 3.38 H 3.12 H (0.6-1.2) mg/dl Glucose 115 H 67 L (70-99(Fasting)) mg/dl Calcium 9.2 8.0 L (8.6-10.3) mg/dl AST 70 H 59 H (13-39) U/L ALT 42 36 (7-52) U/L Alkaline Phosphatase 95 70 (34-104) U/L Total Protein 6.4 5.2 L (6.0-8.3) gm/dl Albumin 3.6 3.2 L (3.4-5.0) gm/dl Intake and Output 03/05/24 03/06/24 03/06/24 22:59 06:59 14:59 Intake Total 1255.467 / 1655.167 100 / 1655.167 Output Total 150 / 500 350 / 500 300 / 300 Balance 1105.467 / 1155.167 -250 / 1155.167 -300 / -300 Intake: IV 1135.467 / 1535.167 100 / 1535.167 Heparin Sodium/Dextrose 25,000 35.467 / 35.467 units In 500 ml @ 700 UNITS/HR 14 mls/hr IV .Q24H [facility] Rx#: [id number] Sodium Chloride 0.9% 1,000 ml @ 1000 / 1299.7 999 mls/hr IV .Q1H1M [facility] Rx#: [id number] metroNIDAZOLE 500 mg In 100 ml 100 / 200 100 / 200 @ 100 mls/hr IV Q8H [facility] Rx#: [id number] Oral 120 / 120 0 / 120 Output: Urine 150 / 500 350 / 500 300 / 300 Other: Weight 84.7 kg Weight Measurement Method Built in [facility] Diagnostic Findings Cardiac Enzymes 03/05/24 03/05/24 03/05/24 Range/Units 14:07 14:07 16:04 AST 70 H (13-39) U/L Troponin I High Sens 2428.3 H* Cancelled 3150.9 H* D (0-14) pg/ml B-Natriuretic Peptide (0-100) pg/ml 03/05/24 03/06/24 03/06/24 Range/Units 20:40 01:52 08:46 AST 59 H (13-39) U/L Troponin I High Sens 4529.3 H* D 5633.7 H* D 4124.7 H* D (0-14) pg/ml B-Natriuretic Peptide 398 H (0-100) pg/ml Coagulation 03/05/24 03/05/24 03/05/24 Range/Units 14:07 18:28 20:40 APTT Cancelled 29 B-Natriuretic Peptide 398 H (0-100) pg/ml CBC 03/05/24 03/06/24 Range/Units 14:07 01:52 WBC 12.08 H 12.02 H (4.8-10.8) K/ul RBC 3.40 L 2.88 L (4.20-5.40) M/uL Hgb 10.8 L 9.1 L (12.0-16.0) g/dl Hct 32.9 L 28.2 L (37.0-47.0) % Plt Count 322 293 (130-400) K/uL Neut # (Auto) 9.43 H 9.00 H (1.40-6.50) K/uL Lymph # (Auto) 2.00 1.93 (1.20-3.40) K/uL [place] # (Auto) 0.57 0.91 H (0.11-0.59) K/uL Eos # (Auto) 0.00 0.05 (0.00-0.50) K/uL Baso # (Auto) 0.01 0.03 (0.00-0.20) K/uL Comprehensive Metabolic Panel 03/05/24 03/06/24 Range/Units 14:07 01:52 Sodium 139 138 (136-145) mmol/L Potassium 5.2 H 4.7 (3.5-5.1) mmol/L Chloride 109 H 112 H (98-107) mmol/L Carbon Dioxide 20 L 18 L (21-32) mmol/L BUN 34 H 35 H (6-23) mg/dl Creatinine 3.38 H 3.12 H (0.6-1.2) mg/dl Glucose 115 H 67 L (70-99(Fasting)) mg/dl Calcium 9.2 8.0 L (8.6-10.3) mg/dl AST 70 H 59 H (13-39) U/L ALT 42 36 (7-52) U/L Alkaline Phosphatase 95 70 (34-104) U/L Total Protein 6.4 5.2 L (6.0-8.3) gm/dl Albumin 3.6 3.2 L (3.4-5.0) gm/dl Intake and Output 03/05/24 03/06/24 03/06/24 22:59 06:59 14:59 Intake Total 1255.467 / 1655.167 100 / 1655.167 Output Total 150 / 500 350 / 500 300 / 300 Balance 1105.467 / 1155.167 -250 / 1155.167 -300 / -300 Intake: IV 1135.467 / 1535.167 100 / 1535.167 Heparin Sodium/Dextrose 25,000 35.467 / 35.467 units In 500 ml @ 700 UNITS/HR 14 mls/hr IV .Q24H [facility] Rx#: [id number] Sodium Chloride 0.9% 1,000 ml @ 1000 / 1299.7 999 mls/hr IV .Q1H1M [facility] Rx#: [id number] metroNIDAZOLE 500 mg In 100 ml 100 / 200 100 / 200 @ 100 mls/hr IV Q8H [facility] Rx#: [id number] Oral 120 / 120 0 / 120 Output: Urine 150 / 500 350 / 500 300 / 300 Other: Weight 84.7 kg Weight Measurement Method Built in [facility] (3) Acute renal failure Acute renal failure type: unspecified Qualified Code(s): N17.9 - Acute kidney failure, unspecified (5) Sepsis Acute renal failure type: unspecified Sepsis acute organ dysfunction status: with acute organ dysfunction Sepsis type: sepsis due to unspecified organism Severe sepsis acute organ dysfunction type: acute renal failure Severe sepsis shock status: with septic shock Qualified Code(s): A41.9 - Sepsis, unspecified organism; R65.21 - Severe sepsis with septic shock; N17.9 - Acute kidney failure, unspecified
--- NOTE | 2024-03-06 10:25 | Hospitalist Progress Note ---
Date of Service March 06, 2024 Assessment & Plan (1) Shock: (2) Type 1 diabetes mellitus: (3) Non-ST elevation OR (NSTEMI): (4) Acute respiratory failure with hypoxia: (5) Acute renal failure: (6) Sepsis: Plan Pt is a 58yoF with PMHx significant for hypertension, hyperlipidemia, DM 1 on insulin pump, VAHE, CKD (baseline creatinine 1.3), ADHD, anxiety/mood disorder, recent appendectomy 3 days ago with post-op hypotension admitted with N/V and continued weakness at home since discharge, septic shock, acute hypoxic respiratory failure, fluid overload with pleural effusions, acute kidney injury and complicated UTI Acute hypoxic respiratory Failure Pleural Effusions Still with oxygen requirement at 6L Chest xray noting pleural effusions, possible pneumonia. Procal elevated at 2.66 Chest CTA with no PE. Notes R>L pleural effusions Respiratory panel negative VBG reviewed Oxygen supplementation as needed, wean as tolerated Likely in setting of pleural effusions, possible pneumonia Pulmonology consulted, appreciate recommendations -possible thoracentesis Continue ICU level of care CHF Anasarca No prior diagnosis of CHF Chest CTA noting " Mild cardiomegaly with evidence of fluid overload/congestive change" Also R>L pleural effusions BNP reviewed 328 Echo completed and reviewed -No left ventricular regional wall motion abnormalities with borderline hyperdynamic LV function on echocardiogram. Indirect evidence (septal flattening) of right ventricular pressure and volume overload noted. Chronicity of RV dilation/dysfunction unclear at this time, however, normal RV size and function noted per echocardiogram in 2009. Cardiology consult noted and appreciated NSTEMI vs demand ischemia Trop elevated at 2428--> 3150-->4529-->peak at 5633 EKG reviewed , no evidence of STEMI Received aspirin 324mg in the ED, continue with IV Heparin (to be held at 4AM per pulm for thoracentesis) Cardiology consulted as above, appreciate recommendations -Elevated high-sensitivity troponin more likely reflective of demand ischemia rather than plaque rupture event Acute on Chronic Kidney Disease Cr baseline of 1.3, was elevated at 1.82 3 days ago Cr 3.38-->3.12 Pt fluid overloaded in setting of CHF/anasarca Received 1L of fluids in the ED, will defer on further fluids at this time Continue to hold home losartan Avoid nephrotoxic agents Nephrology consulted, Case discussed with Dr. Matthews Severe sepsis/Septic Shock UTI Possible Pneumonia Pt with leukocytosis, tachypnea, hypotension WBC 12.08-->12.02 Was being treated for a UTI at home with po cefdinir, urine cx grew pansensitive klebsiella Lactate wnl Procal elevated at 2.66 Chest imaging with possible pneumonia CT abd/pelvis with no abscess or acute infectious abnormality in post op setting UA with noted improvement from prior, repeat urine Cx pending Postop incisions do not appear infected Blood Cx x1 set pending Holding home cefdinir Continue with IV Cefepime and Flagyl empirically Continue to monitor BP History of Appendicitis POD#4, s/p appendectomy on 03/02 with General surgery Post op hypotension that resolved with fluids CT abd/pelvis with no noted complications DMI On Insulin pump, continue Ensure good glucose control Continue other home meds as directed. Trend labs CODE STATUS: Full code DVT prophylaxis: On heparin drip Diet: clears, NPO after midnight Dispo: Continue care in ICU A total of 55 minutes spent in the care and care coordination for this patient Admission and Anticipated Discharge Date Admission Date: March 05, 2024 Subjective Chart, data and 24-hour vital signs reviewed. Patient seen and examined at bedside with nursing. No adverse events overnight reported She remains on O2 via nasal cannula Complain of only mild abdominal tenderness at the site of the incision. BP improved with sepsis level IVF Trop spiked over 5k. No evidence of STEMI on EKG Meds reviewed Current Inpatient Medications Acetaminophen (Acetaminophen 325 Mg Tab) 650 mg PO Q4H PRN PRN Reason: Pain or Fever Stop: 04/05/24 08:55 Last Admin: 03/06/24 09:16 Dose: 650 mg Albuterol (Albuterol Hfa 8 Gm Inhaler) 2 puffs INH Q4R PRN PRN Reason: .COUGH, WHEEZING Stop: 04/04/24 18:30 Aspirin (Aspirin 81 Mg Ectab) 81 mg PO QPM KANDI Stop: 04/04/24 20:59 Last Admin: 03/05/24 20:47 Dose: 81 mg Dextrose (Dextrose 50% 50 Ml Syringe) 25 - 50 ml IV UD PRN; Protocol PRN Reason: Hypoglycemia Protocol Stop: 04/04/24 19:38 Docusate Sodium (Docusate Sodium 100 Mg Cap) 100 mg PO BID KANDI Stop: 04/04/24 20:59 Last Admin: 03/06/24 09:17 Dose: Not Given Fluoxetine HCl (Fluoxetine Hcl 20 Mg Cap) 40 mg PO QPM KANDI Stop: 04/04/24 20:59 Last Admin: 03/05/24 20:48 Dose: 40 mg Glucagon (Glucagon For Inj 1 Mg Vial) 1 mg SQ UD PRN; Protocol PRN Reason: Hypoglycemia Protocol Stop: 04/04/24 19:38 Glucose (Glucose 40% Gel 15 Gm Tube) 15 - 30 gm PO UD PRN; Protocol PRN Reason: Hypoglycemia Protocol Stop: 04/04/24 19:38 Glucose (Glucose 10 Tab/Tube) 4 - 8 tab PO UD PRN; Protocol PRN Reason: Hypoglycemia Treatment Stop: 04/04/24 19:38 Hydromorphone HCl (Hydromorphone Inj 0.5 Mg/0.5 Ml Syr) 0.5 mg IV Q6H PRN PRN Reason: Severe Pain (Scale 7, 8, 9,10) Stop: 03/19/24 20:20 Last Admin: 03/06/24 02:21 Dose: 0.5 mg Cefepime HCl 1,000 mg/ Syringe 10 mls @ 5 mls/min IV Q12H KANDI; Protocol Stop: 03/08/24 04:59 Last Admin: 03/06/24 05:18 Dose: 5 mls/min Metronidazole (Flagyl) 500 mg in 100 mls @ 100 mls/hr IV Q8H KANDI; Protocol Stop: 03/07/24 19:59 Last Infusion: 03/06/24 05:22 Dose: Infused Insulin Aspart (Insulin, Rapid-Acting Pump) 1 each SC ACHS KANDI; Protocol Stop: 04/04/24 20:59 Last Admin: 03/05/24 20:59 Dose: 1 each Insulin Aspart (Insulin Aspart 100 Units/Ml Vial) 0 units SC PRN PRN PRN Reason: Insulin (Rapid-Acting) Pump Refill Stop: 04/04/24 19:38 Lovastatin (Lovastatin 20 Mg Tab) 40 mg PO QPM KANDI Stop: 04/04/24 20:59 Last Admin: 03/05/24 20:48 Dose: 40 mg Miscellaneous (Continuous Glucose Monitor) 0 each N/A ACHS KANDI Stop: 04/04/24 20:59 Last Admin: 03/05/24 20:59 Dose: 1 each Miscellaneous (Carbohydrates For Hypoglycemia ) 15 - 30 gm PO UD PRN PRN Reason: Hypoglycemia Protocol Stop: 04/04/24 19:38 Ondansetron HCl (Ondansetron Inj 2 Mg/Ml 2 Ml Vial) 4 mg IV Q6H PRN PRN Reason: Nausea And Vomiting Stop: 04/04/24 19:58 Oxycodone/Acetaminophen (Oxycodone/Acetaminophen 5mg/325mg Tab) 1 tab PO Q6H PRN PRN Reason: Mild-Mod Pain (Scale 1-6) Stop: 03/19/24 18:30 Last Admin: 03/05/24 21:33 Dose: 1 tab Polyethylene Glycol (Polyethylene (Miralax) 17 Gm Pack) 17 gm PO DAILY PRN PRN Reason: Constipation Stop: 04/04/24 20:20 Review of Systems Review of Systems: Constitutional- no fever; no chills Eyes- no acute visual changes ENT- no sinus drainage; no pharyngitis Pulmonary- no cough, no wheezing, no shortness of breath Cardiac- no chest pain, no palpitations, no orthopnea, + dependent edema GI- no further nausea, no further vomiting, no diarrhea, no melena, no hematochezia. Mild incisional pain form the appe - no dysuria, no hematuria Musculoskeletal- no arthralgias, no myalgias Derm- no rashes, no new skin lesions, no changing skin lesions Hematologic- no unusual bruising, no unusual bleeding Lymphatics- no adenopathy Endocrine- glucose with good control Neuro- no headaches, no focal neurologic symptoms Psych- + anxiety, no depression Physical Exam Physical Exam: General- adult female seen at bedside in the ICU setting Head- atraumatic Eyes- PERRL, EOMI, anicteric ENT- oropharynx clear Neck- supple, no JVD, no adenopathy, no thyromegaly; carotids +2/2, no bruits appreciated Lungs- clear to auscultation and percussion Heart- regular rhythm; no murmur, no gallop, no rub appreciated Abdomen- normal bowel sounds, soft, nontender, no masses or hepatosplenomegaly Extremities- no pretibial edema, no calf tenderness; peripheral pulses intact Neuro- alert, oriented x 3; PERRL, EOMI; no facial palsy; no dysarthria; motor 5/5 bilaterally; no cogwheel rigidity; patellar DTRs +2/2; toes downgoing bila terally; finger to nose intact bilaterally Skin- warm & dry Results & Data Results & Data Vital Signs (Past 12 Hours) Vital Signs Pulse Resp BP Pulse Ox 03/06/24 01:30 111/75 03/06/24 01:24 82 13 100 03/06/24 01:03 81 14 99 03/06/24 01:01 11896 03/06/24 01:01 11803/06/24 01:01 11803/06/24 01:01 11803/06/24 00:42 72 19 99 03/06/24 00:39 83 14 100 03/06/24 00:03 83 16 100 03/06/24 00:00 109/73 03/06/24 00:00 109/73 03/05/24 23:45 83 16 100 03/05/24 23:00 82 15 100 03/05/24 23:00 109/81 03/05/24 23:00 109/81 03/05/24 22:30 120/84 Diagnostic Findings Laboratory Results WBC 12.02 K/ul (4.8-10.8) H 03/06/24 01:52 RBC 2.88 M/uL (4.20-5.40) L 03/06/24 01:52 Hgb 9.1 g/dl (12.0-16.0) L 03/06/24 01:52 Hct 28.2 % (37.0-47.0) L 03/06/24 01:52 MCV 97.9 fL (80.0-100.0) 03/06/24 01:52 MCH 31.6 pg (25.0-34.0) 03/06/24 01:52 MCHC 32.3 g/dL (32.0-36.0) 03/06/24 01:52 RDW Std Deviation 47.3 fL (36.4-46.3) H 03/06/24 01:52 RDW Coeff of Emma 13.1 % (11.5-14.5) 03/06/24 01:52 Plt Count 293 K/uL (130-400) 03/06/24 01:52 MPV 10.3 fL (9.4-12.4) 03/06/24 01:52 Immature Gran % (Auto) 0.8 % 03/06/24 01:52 Neut % (Auto) 74.9 % 03/06/24 01:52 Lymph % (Auto) 16.1 % 03/06/24 01:52 Callahan % (Auto) 7.6 % 03/06/24 01:52 Eos % (Auto) 0.4 % 03/06/24 01:52 Baso % (Auto) 0.2 % 03/06/24 01:52 Neut # (Auto) 9.00 K/uL (1.40-6.50) H 03/06/24 01:52 Lymph # (Auto) 1.93 K/uL (1.20-3.40) 03/06/24 01:52 Callahan # (Auto) 0.91 K/uL (0.11-0.59) H 03/06/24 01:52 Eos # (Auto) 0.05 K/uL (0.00-0.50) 03/06/24 01:52 Baso # (Auto) 0.03 K/uL (0.00-0.20) 03/06/24 01:52 Immature Gran # (Auto) 0.10 K/uL (0.01-0.20) 03/06/24 01:52 Absolute Nucleated RBC 0.04 K/uL (0.00-0.12) 03/06/24 01:52 Nucleated RBC % (auto) 0.3 % 03/06/24 01:52 APTT 29 Seconds (21-31) 03/05/24 18:28 PTT Ratio 1.1 03/05/24 18:28 Heparin Anti-Xa, Unfract 0.30 IU/ml (0.3-0.7) 03/05/24 22:19 VBG pH 7.20 (7.36-7.41) L 03/05/24 20:40 VBG pCO2 45 mmHg (38-50) 03/05/24 20:40 VBG pO2 29 mmHg 03/05/24 20:40 VBG HCO3 18 mmol/L 03/05/24 20:40 VBG O2 Saturation < 60.0 % 03/05/24 20:40 VBG Base Excess -10.2 mEq/L 03/05/24 20:40 Sodium 138 mmol/L (136-145) 03/06/24 01:52 Potassium 4.7 mmol/L (3.5-5.1) 03/06/24 01:52 Chloride 112 mmol/L (98-107) H 03/06/24 01:52 Carbon Dioxide 18 mmol/L (21-32) L 03/06/24 01:52 Anion Gap 8 (3-11) 03/06/24 01:52 BUN 35 mg/dl (6-23) H 03/06/24 01:52 Creatinine 3.12 mg/dl (0.6-1.2) H 03/06/24 01:52 Est Cr Clr Drug Dosing 19.2 ml/min 03/06/24 01:52 Est GFR ( Amer) 18.3 ml/min 03/06/24 01:52 Est GFR (Non-Af Amer) 15.8 ml/min 03/06/24 01:52 BUN/Creatinine Ratio 11.2 (10-20) 03/06/24 01:52 Glucose 67 mg/dl (70-99(Fasting)) L 03/06/24 01:52 POC Glucose 102 mg/dl (70-99) H 03/05/24 20:54 Lactate 1.5 mmol/L (0.4-2.0) 03/05/24 20:40 Calcium 8.0 mg/dl (8.6-10.3) L 03/06/24 01:52 Phosphorus 4.1 mg/dl (2.5-4.9) 03/06/24 01:52 Magnesium 2.3 mg/dl (1.7-2.4) 03/06/24 01:52 Total Bilirubin 0.4 mg/dl (0.2-1.0) 03/06/24 01:52 AST 59 U/L (13-39) H 03/06/24 01:52 ALT 36 U/L (7-52) 03/06/24 01:52 Alkaline Phosphatase 70 U/L (34-104) 03/06/24 01:52 Troponin I High Sens 4124.7 pg/ml (0-14) H* D 03/06/24 08:46 B-Natriuretic Peptide 398 pg/ml (0-100) H 03/05/24 20:40 Total Protein 5.2 gm/dl (6.0-8.3) L 03/06/24 01:52 Albumin 3.2 gm/dl (3.4-5.0) L 03/06/24 01:52 Globulin 2.0 gm/dl (2.5-4.0) L 03/06/24 01:52 Albumin/Globulin Ratio 1.6 (0.9-2) 03/06/24 01:52 Lipase 6 U/L (11-82) L 03/05/24 14:07 Procalcitonin 2.66 ng/ml (0-0.5) H 03/05/24 14:07 Random Cortisol 23.13 mcg/dl 03/05/24 18:28 Urine Color Dark Yellow 03/05/24 Unknown Urine Appearance Cloudy (Clear) A 03/05/24 Unknown Urine pH 5.0 (4.5-7.5) 03/05/24 Unknown Ur Specific [place] 1.029 (1.000-1.030) 03/05/24 Unknown Urine Protein 1+ (Negative) H 03/05/24 Unknown Urine Glucose (UA) Negative (Negative) 03/05/24 Unknown Urine Ketones 1+ (Negative) H 03/05/24 Unknown Urine Blood Negative (Negative) 03/05/24 Unknown Urine Nitrite Negative (Negative) 03/05/24 Unknown Urine Bilirubin 1+ (Negative) H 03/05/24 Unknown Urine Urobilinogen Negative (Negative) 03/05/24 Unknown Ur Leukocyte Esterase 1+ (Negative) H 03/05/24 Unknown Urine WBC (Auto) 11-20 /hpf (0-5) H 03/05/24 Unknown Urine RBC (Auto) 0-2 /hpf (0-2) 03/05/24 Unknown U Hyaline Cast (Auto) >20 /lpf (0-2) H 03/05/24 Unknown U Epithel Cells (Auto) 6-10 /hpf (0-2) H 03/05/24 Unknown Urine Bacteria (Auto) None Seen (None Seen) 03/05/24 Unknown Hyaline Casts Present /lpf (None Presnt) A 03/05/24 Unknown Nasal Screen MRSA (PCR) Negative (Negative) 03/05/24 17:55 Adenovirus (PCR) Not Detected (NotDetected) 03/05/24 Unknown B. pertussis DNA (PCR) Not Detected (NotDetected) 03/05/24 Unknown B.parapertussis DNA PCR Not Detected (NotDetected) 03/05/24 Unknown C. pneumoniae DNA (PCR) Not Detected (NotDetected) 03/05/24 Unknown Coronavirus OC43 (PCR) Not Detected (NotDetected) 03/05/24 Unknown Coronavirus HKU1 (PCR) Not Detected (NotDetected) 03/05/24 Unknown Coronavirus 229E (PCR) Not Detected (NotDetected) 03/05/24 Unknown SARS-CoV-2 (PCR) Not Detected (NotDetected) 03/05/24 Unknown Coronavirus NL63 (PCR) Not Detected (NotDetected) 03/05/24 Unknown Human Metapneumovir PCR Not Detected (NotDetected) 03/05/24 Unknown Influenza Type A (PCR) Not Detected (NotDetected) 03/05/24 Unknown Influenza Type B (PCR) Not Detected (NotDetected) 03/05/24 Unknown M. pneumoniae (PCR) Not Detected (NotDetected) 03/05/24 Unknown Parainfluenza 1 (PCR) Not Detected (NotDetected) 03/05/24 Unknown Parainfluenza 2 (PCR) Not Detected (NotDetected) 03/05/24 Unknown Parainfluenza 3 (PCR) Not Detected (NotDetected) 03/05/24 Unknown Parainfluenza 4 (PCR) Not Detected (NotDetected) 03/05/24 Unknown RSV (PCR) Not Detected (NotDetected) 03/05/24 Unknown Entero/Rhino (PCR) Not Detected (NotDetected) 03/05/24 Unknown Impressions Chest X-Ray 03/05/24 13:36 XR chest 1V portable HISTORY: Chest pain, nonspecific COMPARISON: Chest 03/03/2024. FINDINGS: No pneumothorax. The heart is mildly enlarged. There are low lung volumes. Small bilateral pleural effusions and bibasilar densities have progre ssed. No evidence for pulmonary edema. No acute fractures. IMPRESSION: Interval development of small bilateral pleural effusions and bibasilar densities. This may represent atelectasis from the pleural effusions or a pneumonia. ACT 112: Negative or not required by law. Electronically signed by: Pierre Talley M.D. 03/05/2024 2:46 PM Abdomen/Pelvis CT 03/05/24 14:[address] WITH IV CONTRAST CT DOSE: HISTORY: hypotension, s/p appendectomy TECHNIQUE: Multiaxial CT images of the abdomen and pelvis were performed following the use of intravenous contrast. A dose lowering technique was utilized adhering to the principles of ALARA. COMPARISON STUDY: Abdomen and pelvis CT 03/01/2024. FINDINGS: The bilateral pleural effusions and bibasilar densities are better appreciated on the same day chest CTA. No pneumoperitoneum. No pneumatosis. No acute fractures identified. The heart is mildly enlarged. There is mild to moderate body wall edema noted. Heterogeneous opacification of the liver which may be due to the timing of contrast. There is associated periportal edema. No hepatic or splenic masses. There are few splenic calcifications, as. The adrenal glands unremarkable. Pancreas enhances normally. Moderate right and moderate left cortical renal atrophy. No hydronephrosis. Small amount of ascites seen within the abdomen primarily surrounding the liver and gallbladder. Edema within the malou hepatis and surrounding the pancreas is likely due to the patient's diffuse edematous state. Calcified plaque within the normal caliber abdominal aorta. No retroperitoneal or pelvic lymphadenopathy. Mild bladder wall thickening which could be due to underdistention. The uterus and ovaries are unremarkable. No bowel wall thickening or obstruction. Prior appendectomy. No loculated fluid collections to suggest an abscess. IMPRESSION: 1. The bilateral pleural effusions and bibasilar densities are better appreciated on the same day chest CTA. 2. Interval appendectomy. No loculated fluid collections to suggest an abscess. 3. Periportal edema, body wall edema, and a small amount of ascites consistent with a diffuse edematous state. 4. Pericholecystic fluid with periportal and peripancreatic edema is also noted. This is likely due to the patient's diffuse edematous state. Recommend correlation with LFTs/pancreatic enzymes for further evaluation. 5. Heterogeneous appearance to the liver which is likely due to the timing of contrast. 6. No bowel wall thickening or obstruction. 7. Mild bladder wall thickening which is likely due to underdistention. Recommend correlation with urinalysis to exclude a cystitis. 8. Additional findings as described above. ACT 112: Negative or not required by law. Electronically signed by: Pierre Talley M.D. 03/05/2024 3:47 PM Chest CTA 03/05/24 14:41 CT ANGIOGRAM OF THE CHEST CLINICAL HISTORY: Dyspnea. Hypotension. COMPARISON STUDY: Chest x-ray dated 03/05/2024. TECHNIQUE: Following the IV administration of 119 cc of Optiray 320, CT angiogram of the chest was performed from the upper abdomen to the thoracic inlet utilizing the pulmonary embolus protocol. Images are reviewed in the axial, sagittal, and coronal planes. 3-D MIPS images are created and assessed. IV contrast was administered without complication. A dose lowering technique was utilized adhering to the principles of ALARA. CT DOSE: 2262.85 mGy.cm FINDINGS: Thyroid: Imaged portions of the thyroid gland are normal in size and attenuation. Thoracic aorta: The thoracic aorta is normal in caliber and demonstrates 4- vessel there is arch anatomy. No dissection is seen. Pulmonary vasculature: The pulmonary trunk is normal in caliber. There are no filling defects identified in main, lobar, or segmental pulmonary branches to suggest pulmonary embolus. Heart: The heart is mildly enlarged noting a small pericardial effusion. The coronary arteries are densely calcified. Lungs and pleural spaces: There are moderate pleural effusions, right larger than left with dependent consolidation. The trachea and central airways are clear. Intralobular septal thickening suggests fluid overload/congestive change. Mediastinum: There is no mediastinal lymphadenopathy. Lisa: Clear. Axillae: There is no axillary lymphadenopathy. Upper abdomen: There is a small volume of perihepatic and perisplenic ascites. Skeletal structures: No lytic or blastic bony lesions are seen. Soft tissues: There is body wall edema. IMPRESSION: 1. There is no evidence of pulmonary embolus in the main, lobar, or segmental pulmonary arteries. 2. Mild cardiomegaly with evidence of fluid overload/congestive change. 3. Right larger than left pleural effusions with dependent consolidation. 4. Advanced coronary artery atherosclerosis. 5. Small volume upper abdominal ascites. 6. Additional findings as above. ACT 112: Negative or not required by law. Electronically signed by: Km Henry M.D. 03/05/2024 3:59 PM (2) Type 1 diabetes mellitus Diabetes mellitus complication status: with other specified complication Qualified Code(s): E10.69 - Type 1 diabetes mellitus with other specified complication (5) Acute renal failure Acute renal failure type: unspecified Qualified Code(s): N17.9 - Acute kidney failure, unspecified (6) Sepsis Acute renal failure type: unspecified Sepsis acute organ dysfunction status: with acute organ dysfunction Sepsis type: sepsis due to unspecified organism Severe sepsis acute organ dysfunction type: acute renal failure Severe sepsis shock status: with septic shock Qualified Code(s): A41.9 - Sepsis, unspecified organism; R65.21 - Severe sepsis with septic shock; N17.9 - Acute kidney failure, unspecified
--- NOTE | 2024-03-06 10:39 | Procedure Note ---
Procedure Note Date of Service March 06, 2024 Procedure: Diagnostic therapeutic ultrasound-guided catheter thoracentesis [employer] [place]: Dr. Margot Renee Indication: Right-sided pleural effusion Consent: Signed by patient and verified with timeout prior to procedure Anesthesia: 1% lidocaine without epinephrine local. Procedure: Consent was verified and timeout performed. Appropriate imaging studies were reviewed prior to the procedure. Patient was placed in a seated position and limited thoracic ultrasound was performed of the right chest. See separate imaging. Appropriate site above the diaphragm for thoracentesis was selected. The skin was prepped and draped in normal sterile fashion. Lidocaine was used for local analgesia. Fluid was aspirated via the finder needle. A small skin jimbo was made with the scalpel and the catheter over the needle apparatus was advanced over the rib into the pleural space. Using the syringe one-way valve system, a total of 1000 mL's of serous fluid was removed. The catheter was removed and observed to be intact. A sterile dressing was applied. Post procedure chest x-ray was ordered. Good lung sliding appreciated postprocedure on the right side Fluid was sent for labs, culture and cytology. Complications: None Blood loss: Less than 1 cc [facility] [place] Codes (Charges) Pulmonary/Thoracic Procedure 1: Pulmonary and Thoracic: 79645 Thoracentesis w imaging Coding CPT Codes Pulmonary/Thoracic - Pulmonary and Thoracic: 03145 Thoracentesis w imaging ([id number]) Additional Codes Date of Service ([email or web address])
--- NOTE | 2024-03-06 10:40 | Procedure Note ---
Procedure Note Date of Service March 06, 2024 Bedside Ultrasound: Lung: Right:-Moderate right-sided pleural effusion, atelectasis of the right lower lobe Left:-Small left-sided pleural effusion Heart: No pericardial effusion, good EF, RVOT enlarged Please note the above document was generated using voice recognition software. It may contain grammatical, syntax or spelling errors.Any formal questions or concerns about the content, text or information contained within the body of this dictation should be directly addressed to the provider for clarification. [facility] [place] (Charges) Pulmonary/Thoracic Procedure 1: Pulmonary and Thoracic: 10561 US, Chest, real time with imaging documentation Coding CPT Codes Pulmonary/Thoracic - Pulmonary and Thoracic: 71357 US, Chest, real time with imaging documentation ([id number]) Additional Codes Date of Service ([email or web address])
--- NOTE | 2024-03-06 11:37 | XRay Report ---
XR chest 1V portable CLINICAL HISTORY: S/P Thoracentesis TECHNIQUE: Single frontal radiograph of the chest was obtained. Comparison: Comparison is made to chest radiograph 03/05/2024 FINDINGS: Exam is limited by underpenetration. The cardiomediastinal silhouette is normal. The lungs are clear. No evidence of pleural effusion or pneumothorax. IMPRESSION: Interval decrease in size of right pleural effusion without evidence of pneumothorax in this patient status post thoracentesis. ACT 112: Negative or not required by law. Electronically signed by: Live Medel M.D. 03/06/2024 11:36 AM
[2024-03-06 11:56] LABS: Albumin Level 3.5 gm/dl (3.4-5.0); Bilirubin,Total 0.4 mg/dl (0.2-1.0)
[2024-03-06 12:02] LABS: Total Protein 5.8 gm/dl (6.0-8.3)
[2024-03-06 12:06] LABS: Amylase Pleural Fluid 16 U/L; Glucose Pleural Fluid 86 mg/dl; LDH Pleural Fluid 89 U/L; Total Protein Pleural Fluid < 3.0 gm/dl
[2024-03-06] MEDS ORDERED: HEPARIN SOD (PORCINE) 1000 UNIT/ML 10 ML VIAL IV SCH (12:15)
[2024-03-06 13:39] LABS: Appearance Pleural Fluid Slightly Hazy; Color Pleural Fluid Pale Yellow; Lymphocytes, Fluid 62 %; Mono,Macrophage,Mesothelial 19 %; Neutrophils, Fluid 19 %; RBC Pleural Fluid Auto < 2000 /uL; Source Pleural Fluid Right Lung; WBC Pleural Fluid Auto 436 /uL
[2024-03-06] MEDS: HEPARIN SODIUM/DEXTROSE 25,000 UNITS/500 ML BAG IV SCH (13:40)
--- NOTE | 2024-03-06 14:32 | Electrocardiogram Report ---
Test Reason : Blood Pressure : */* mmHG Vent. Rate : 82 BPM Atrial Rate : 82 BPM P-R Int : 138 ms QRS Dur : 122 ms QT Int : 420 ms P-R-T Axes : 57 63 -8 degrees QTcB Int : 490 ms Normal sinus rhythm Right bundle branch block T-wave inversion in multiple leads Abnormal ECG When compared with ECG of 05-Mar-2024 17:53, No significant change was found Confirmed by Eduardo Limon ([id number]) on 03/06/2024 2:32:20 PM Referred By: REFERRED SELF Confirmed By: Eduardo Limon
--- NOTE | 2024-03-06 14:33 | Electrocardiogram Report ---
Test Reason : Blood Pressure : */* mmHG Vent. Rate : 81 BPM Atrial Rate : 81 BPM P-R Int : 128 ms QRS Dur : 136 ms QT Int : 414 ms P-R-T Axes : 71 68 -21 degrees QTcB Int : 480 ms Normal sinus rhythm Right bundle branch block T-wave inversion in multiple leads Abnormal ECG When compared with ECG of 06-Mar-2024 02:04, No significant change was found Confirmed by Eduardo Limon ([id number]) on 03/06/2024 2:32:55 PM Referred By: REFERRED SELF Confirmed By: Eduardo Limon
[2024-03-06 21:13] LABS: ANTI-Xa, UFH(UnfractionatedHep 0.27 IU/ml (0.3-0.7)
[2024-03-07 04:33] LABS: Hematocrit (blood only) 30.7 % (37.0-47.0); Hemoglobin 10.2 g/dl (12.0-16.0); Mean Corpuscular Hemoglobin 32.1 pg (25.0-34.0); Mean Corpuscular Hgb Conc 33.2 g/dL (32.0-36.0); Mean Corpuscular Volume 96.5 fL (80.0-100.0); Mean Platelet Volume 10.2 fL (9.4-12.4); Nucleated RBC # (auto) 0.13 K/uL (0.00-0.12); Nucleated RBC % (auto) 1.4 %; Platelet Count 305 K/uL (130-400); RDW Standard Deviation 46.3 fL (36.4-46.3); Red Blood Count 3.18 M/uL (4.20-5.40); White Blood Count 9.31 K/ul (4.8-10.8)
[2024-03-07 04:49] LABS: ANTI-Xa, UFH(UnfractionatedHep < 0.10 IU/ml (0.3-0.7)
[2024-03-07 04:54] LABS: BUN Creatinine Ratio 15.1 (10-20); Calcium 8.6 mg/dl (8.6-10.3); Creatinine Clr Calc Pharmacy 29.2 ml/min; Est GFR (African American) 30.4 ml/min; Est GFR (Non-African American) 26.2 ml/min; Magnesium 2.3 mg/dl (1.7-2.4); Phosphorus 2.9 mg/dl (2.5-4.9); Potassium 4.1 mmol/L (3.5-5.1)
[2024-03-07] MEDS: HEPARIN SOD (PORCINE) 1000 UNIT/ML IV ONE (06:04)
--- NOTE | 2024-03-07 07:58 | Critical Care Progress Note ---
Date of Service March 07, 2024 Assessment & Plan (1) Right ventricular dysfunction: (2) Acute respiratory failure with hypoxia: (3) Pulmonary hypertension: (4) Pleural effusion: Plan 58 YOF presents to the ICU with shock- multifactorial to include sepsis, cardiogenic, and possibly intravascular volume dehydration- noted to have significantly elevated troponin and ECG changes but without STEMI. To ICU to obtain ECHO for RWMA follow hemodynamics and support as it clinically presents itself. --Acute hypoxic respiratory failure Multifactorial Bilateral pleural effusion along with HFpEF - Continue support with Oxygen- If worsens diurese as hemodynamics allow and transition to BiPAP -- Pleural effusion Bilateral S/p thoracentesis right-sided 03/06/2024, 1000 mL removed, transudative -- Pulmonary hypertension BNP is 365 PASP 40 mmHg with enlarged RA and RV Could be chronic, she will ultimately benefit from a right heart cath and possibly left heart cath given the elevated troponins Patient does seem to have large right to left shunt which might be the reason for patient's pulmonary hypertension. She is planned to have GENNARO tomorrow --History of VAHE Not tolerable to CPAP Plan: In/out: Positive 288 mL, urine output 1000 mL, +1.5 L since coming to the hospital Patient's creatinine is improving. I do think the [id number] shunt on the echo might be one of the reason for patient's elevated right-sided pressures. They might have improved especially after the thoracentesis Plan for GENNARO tomorrow. CPAP could be considered if the patient gets hypoxic postprocedure Case discussed with cardiology No further recommendation from pulmonary perspective, will sign off Please call directly with any questions Please note the above document was generated using voice recognition software. It may contain grammatical, syntax or spelling errors.Any formal questions or concerns about the content, text or information contained within the body of this dictation should be directly addressed to the provider for clarification. Admission and Anticipated Discharge Date Admission Date: March 05, 2024 Subjective Patient seen and examined at bedside. No acute distress, no AutoSense overnight She was saturating well on room air Shortness of breath is improved, denies any chest pain States that her breathing is improved since thoracentesis Mild abdominal tenderness, no nausea vomiting. Fair appetite Review of Systems 2 Review of Systems: All systems reviewed & are unremarkable except as noted in Subjective Physical Exam 2 Physical Exam: Constitutional: No acute distress HEENT: EOMI, PERRLA Respiratory system: Decreased air entry bilaterally, no wheeze, no rhonchi, positive crackles bilaterally more on the right side CVS: S1-S2 positive, no murmurs or gallops Abdomen: Soft, nontender, nondistended, positive bowel sounds x4 Extremities: +2 pulses bilaterally radialis/ dorsalis pedis, no cyanosis, +1 pitting edema bilateral lower extremity Neuro: Awake alert oriented x3 Psych: Normal mood and affect G/U: No Patterson Skin: no rashes, warm and dry Lymphatic: no cervical or axillary lymphadenopathy Results & Data Results & Data Vital Signs (Past 12 Hours) Vital Signs Pulse Resp BP 03/07/24 00:00 88 17 157/81 H 03/06/24 23:00 81 23 03/06/24 22:12 78 24 03/06/24 21:00 77 25 H 03/06/24 21:00 148/84 H 03/06/24 21:00 148/84 H 03/06/24 21:00 148/84 H 03/06/24 20:30 141/77 H 03/06/24 20:30 141/77 H 03/06/24 20:12 82 18 03/06/24 20:00 81 19 Laboratory Results 03/07/24 03:53 03/07/24 03:53 Coding Level of Care Code 48495 SUB INP/OBS CARE 3/50MIN Diagnoses Right ventricular dysfunction I51.9 Acute respiratory failure with hypoxia J96.01 Pulmonary hypertension I27.20 Pleural effusion J90
--- NOTE | 2024-03-07 08:35 | Hospitalist Progress Note ---
Date of Service March 07, 2024 Assessment & Plan (1) Shock: (2) Type 1 diabetes mellitus: (3) Non-ST elevation [place] (NSTEMI): (4) Acute respiratory failure with hypoxia: (5) Acute renal failure: (6) Sepsis: Plan Pt is a 58yoF with PMHx significant for hypertension, hyperlipidemia, DM 1 on insulin pump, VAHE, CKD (baseline creatinine 1.3), ADHD, anxiety/mood disorder, recent appendectomy 3 days [employer] with post-op hypotension admitted with N/V and continued weakness at home since discharge. Found to be in septic shock, acute hypoxic respiratory failure, fluid overload with pleural effusions, acute kidney injury and complicated UTI on admission. Acute hypoxic respiratory Failure Pleural Effusions Had oxygen requirement as high as 10L on admission, currently on RA Chest xray noting pleural effusions, possible pneumonia. Procal elevated at 2.66 Chest CTA with no PE. Notes R>L pleural effusions Respiratory panel negative VBG reviewed Oxygen supplementation as needed, wean as tolerated Likely in setting of pleural effusions, possible pneumonia Pulmonology consulted, appreciate recommendations -s/p R sided thoracentesis on 03/06 -removal of 1000ml of serous fluid -transudate -pleural fluid pathology noting no tumor, only benign mesothelial cells, inflammatory cells and RBCs Improving CHF Anasarca No prior diagnosis of CHF Chest CTA noting " Mild cardiomegaly with evidence of fluid overload/congestive change" Also R>L pleural effusions BNP reviewed 328 Echo on admission completed and reviewed -No left ventricular regional wall motion abnormalities with borderline h yperdynamic LV function on echocardiogram. -Indirect evidence (septal flattening) of right ventricular pressure and volume overload noted. Cardiology consulted, appreciate recs -TTE repeated (limited) and noted large intracardiac shunt with injection of agitated saline contrast. -Per cardiology, "In the setting of significant RV dilation and dysfunction as well as pulm hypertension this raises concern for atrial septal defect." -Recommending GENNARO for further evaluation -Advised holding diuretic therapy at this time, collaboration with nephrology. -Monitor I's and O's, daily weight, GFR, and electrolytes. -Untreated sleep apnea per pt's med hx -Consider addition of CPAP. CPAP ordered for qhs use GENNARO scheduled for 03/08 Continue to monitor NSTEMI vs demand ischemia Trop elevated at 2428--> 3150-->4529-->peak at 5633 EKG reviewed , no evidence of STEMI Received aspirin 324mg in the ED, continue with aspirin 81mg daily Continue IV Heparin Continue statin Cardiology consulted as above, appreciate recommendations -Elevated high-sensitivity troponin more likely reflective of demand ischemia rather than plaque rupture event -Advised cardiac catheterization deferred at this time due to acute renal insufficiency. -"Cardiac catheterization will be considered as hospital course progresses pending ongoing assessment of renal function and respiratory status." -Continue IV heparin, aspirin, and statin therapy. Continue to monitor on telemetry Acute on Chronic Kidney Disease Cr baseline of 1.3, was elevated at 1.82 3 days ago Cr 3.38-->3.12-->2.05 Pt fluid overloaded in setting of CHF/anasarca Received 2L of fluids in the ED, will defer on further fluids at this time Continue to hold home losartan Avoid nephrotoxic agents Nephrology consulted, appreciate recs. Recommended/Stated the following: -"-daily bmp -neither IVF nor diuresis indicated currently -continue strict I/O; agree w/ cautiously starting diet; no fluid limit indicated -continue to avoid nephrotoxins -no indication at this time for acute dialysis though cannot rule out need this admission just yet" Improving Severe sepsis/Septic Shock Complicated UTI Possible Pneumonia Pt with leukocytosis, tachypnea, hypotension WBC 12.08-->12.02-->9.31 Was being treated for a UTI at home with po cefdinir, urine cx grew pansensitive klebsiella Lactate wnl Procal elevated at 2.66 Chest imaging with possible pneumonia CT abd/pelvis with no abscess or acute infectious abnormality in post op setting UA with noted improvement from prior, repeat urine Cx with no significant growth. Postop incisions do not appear infected Blood Cx x1 set NGTD Holding home cefdinir Continue with IV Cefepime and Flagyl Continue to monitor BP Improving History of Appendicitis POD#5, s/p appendectomy on 03/02 with General surgery Post op hypotension that resolved with fluids, postop hypoxia and RO as above. CT abd/pelvis with no noted complications Stable DMI On Insulin pump, continue Ensure good glucose control Continue other home meds as directed. Trend labs CODE STATUS: Full code DVT prophylaxis: On heparin drip Diet: DMI, HH, dialysis renal, NPO after midnight Dispo: Continue care in PCU (still physically located in the ICU), PT/OT ordered for further recs Admission and Anticipated Discharge Date Admission Date: March 05, 2024 Subjective pt was seen laying in bed in the ICU. states feeling much better from admission. Denied N/V, states she has been able to eat and keep food down. Review of Systems Review of Systems: All systems reviewed & are unremarkable except as noted in Subjective Physical Exam Physical Exam: General: Alert, oriented. No acute distress Skin: No noted rashes or bruises Psych: Appropriate mood and affect HEENT: NC/AT CV: RRR Resp: Breath sounds clear bilaterally, no increased effort of breathing Abdomen: Soft, nontender Results & Data Results & Data Vital Signs (Past 12 Hours) Vital Signs Pulse Resp BP 03/07/24 00:00 88 17 157/81 H 03/06/24 23:00 81 23 03/06/24 22:12 78 24 03/06/24 21:00 77 25 H 03/06/24 21:00 148/84 H 03/06/24 21:00 148/84 H 03/06/24 21:00 148/84 H (2) Type 1 diabetes mellitus Diabetes mellitus complication status: with other specified complication Qualified Code(s): E10.69 - Type 1 diabetes mellitus with other specified compli cation (5) Acute renal failure Acute renal failure type: unspecified Qualified Code(s): N17.9 - Acute kidney failure, unspecified (6) Sepsis Acute renal failure type: unspecified Sepsis acute organ dysfunction status: with acute organ dysfunction Sepsis type: sepsis due to unspecified organism Severe sepsis acute organ dysfunction type: acute renal failure Severe sepsis shock status: with septic shock Qualified Code(s): A41.9 - Sepsis, unspecified organism; R65.21 - Severe sepsis with septic shock; N17.9 - Acute kidney failure, unspecified
--- NOTE | 2024-03-07 09:19 | Nephrology Progress Note ---
Date of Service March 07, 2024 Assessment & Plan (1) Acute renal failure: Plan: further and satisfactorialy improving nonoliguric stage 2 RO on CKD3 likely from ischemia/prerenal process > however likely w/ underlying ATN (renal function was already worsening prior to hospital d/c) and remains at risk for further worsening after IV contrast dye for obligate CTA chest > if she continues to improve by tomorrow we can say that she has avoided contrast induced nephropathy. presented 03/05 w/ creatinine 3.4 (peak). baseline 1.4 w/ 50 mg daily albuminuria >> CKD 3 neither A nor B mild stable NAGMA noted; would not intervene at this time -daily bmp -neither IVF nor diuresis indicated currently > though will d/w cardiology -continue strict I/O; agree w/ cautiously starting diet; no fluid limit indicated -continue to avoid nephrotoxins -no indication at this time for acute dialysis though cannot rule out need this admission just yet (2) Right ventricular dysfunction: Plan: as per cardiology >> for GENNARO tomorrow and RHC under consideration; ? role for VAHE untreated as presume chronic RV dysfunction cause > poor tolerance of post op fluids and subsequent hypoxic respiratory failure (3) CKD (chronic kidney disease) stage 3, GFR 30-59 ml/min: Plan: as above; needs to reest in CKD clinic (4) Shock: Plan: stabilized w/ abtx (cefepime, flagyl), supportive care Admission and Anticipated Discharge Date Admission Date: March 05, 2024 Subjective no interval events clinically; remains on RA; 1.5L + on admission; 1.3 L UOP yesterday; feels further improved > no emesis since arrival; some dyspnea w/ cough; tolerating po though early satiety; no edema, no dysuria Review of Systems 2 Review of Systems: All systems reviewed & are unremarkable except as noted in Subjective Physical Exam 2 Constitutional: well developed (ambulating slowly in room; very tired still), well nourished, + obese and cooperative; no acute distress Eyes: EOM intact bilaterally ENMT: Ears: no external ear abnormality Nose: no external nose abnormality Mouth: + dry oral mucous membranes Neck: no nuchal rigidity Respiratory: normal respiratory effort Auscultation: + diminished lung sounds (shin L base) Cardiovascular: RRR, no murmur, no edema Gastrointestinal (Abdomen): Inspection/Auscultation: + abdominal wall ecchymosis and + hypoactive bowel sounds (slight); no abdominal edema P ercussion/Palpation: + abdomen tender (near surgical sites w/ moderate palpation) and abdomen soft; no ascites Musculoskeletal: Extremities: strength 5/5 throughout Skin: no rashes, warm and dry Psychiatric: Orientation: alert and oriented x 3 Results & Data Vital Signs (Past 12 Hours) Vital Signs Pulse Resp BP 03/07/24 00:00 88 17 157/81 H 03/06/24 23:00 81 23 03/06/24 22:12 78 24 Laboratory Results 03/07/24 03:53 03/07/24 03:53 admission cxs ngtd pleural fluid results reveiwed (1) Acute renal failure Acute renal failure type: unspecified Qualified Code(s): N17.9 - Acute kidney failure, unspecified
[2024-03-07 10:13] LABS: ANTI-Xa, UFH(UnfractionatedHep 0.51 IU/ml (0.3-0.7)
--- NOTE | 2024-03-07 10:29 | Cardiology Progress Note ---
Date of Service March 07, 2024 Assessment & Plan (1) Non-ST elevation [place] (NSTEMI): (2) Right ventricular dysfunction: (3) Acute right-sided heart failure: (4) Acute renal failure: (5) Acute respiratory failure with hypoxia: (6) Sepsis: Plan 58-year-old female present to the hospital with multifactorial shock including sepsis, severe RV dysfunction, intravascular volume depletion in the setting of intractable nausea and vomiting. Elevated high-sensitivity troponin more likely reflective of demand ischemia rather than plaque rupture event. No left ventricular regional wall motion abnormalities with borderline hyperdynamic LV function. Indirect evidence (septal flattening) of right ventricular pressure and volume overload noted. Chronicity of RV dilation/dysfunction unclear at this time, however, normal RV size and function noted per echocardiogram in 2009. Respiratory status significantly improved status post thoracentesis. Limited transthoracic echocardiogram demonstrating large intracardiac shunt with injection of agitated saline contrast. In the setting of significant RV dilation and dysfunction as well as pulm hypertension this raises concern for atrial septal defect. Recommend transesophageal echocardiogram for further evaluation. Risks, benefits, alternatives to procedure reviewed. Patient agreeable to proceed. Tentatively scheduled for 1 PM 03/08/2024. N.p.o. except medications after midnight. Hold diuretic therapy at this time. Will discuss further with nephrology. Monitor I's and O's, daily weight, GFR, and electrolytes. Untreated sleep apnea per review of records. Consider addition of CPAP. Cardiac catheterization deferred at this time due to acute renal insufficiency. Cardiac catheterization will be considered as hospital course progresses pending ongoing assessment of renal function and respiratory status. Continue IV heparin, aspirin, and statin therapy. Treatment of sepsis, Klebsiella UTI as per direction of internal medicine/critical care. I spent a total of 50 minutes on the date of service in preparation, delivery, and documentation of the care provided to this patient, excluding any time spent in the performance of separately billed services. Admission and Anticipated Discharge Date Admission Date: March 05, 2024 Subjective 58-year-old female seen and examined at the bedside. Feeling much better today. Supplemental oxygen discontinued. Serum creatinine trending downward. Denies orthopnea or PND. No chest discomfort or shortness of breath at rest. Bedside limited echocardiogram demonstrating right to left intracardiac shunt with injection of agitated saline contrast. Review of Systems Review of Systems: All systems reviewed & are unremarkable except as noted in Subjective Physical Exam Constitutional: well nourished; no acute distress Respiratory: no respiratory distress, no labored breathing and no retractions Auscultation: + diminished lung sounds (Bases bilateral); no rales, no rhonchi and no wheezes Cardiovascular: Rate/Rhythm: regular rate and regular rhythm Heart Sounds: normal S1 and normal S2; no murmur Vessels: femoral pulses present and radial pulses present; no JVD and no carotid bruit Extremities: no edema Gastrointestinal (Abdomen): Inspection/Auscultation: normal bowel sounds; abdomen not distended Percussion/Palpation: + abdomen tender and abdomen soft; no guarding Neurologic: CN's II-XI intact bilaterally and moves all extremities; no focal motor deficits Results & Data Vital Signs (Past 12 Hours) Vital Signs Pulse Resp BP 03/07/24 00:00 88 17 157/81 H 03/06/24 23:00 81 23 Laboratory Results Cardiac Enzymes 03/06/24 03/06/24 Range/Units 08:46 14:16 Lactate Dehydrogenase 283 H (86-244) U/L Troponin I High Sens 3091.7 H* D (0-14) pg/ml CBC 03/07/24 Range/Units 03:53 WBC 9.31 (4.8-10.8) K/ul RBC 3.18 L (4.20-5.40) M/uL Hgb 10.2 L (12.0-16.0) g/dl Hct 30.7 L (37.0-47.0) % Plt Count 305 (130-400) K/uL Comprehensive Metabolic Panel 03/06/24 03/07/24 Range/Units 08:46 03:53 Sodium 138 (136-145) mmol/L Potassium 4.1 (3.5-5.1) mmol/L Chloride 110 H (98-107) mmol/L Carbon Dioxide 20 L (21-32) mmol/L BUN 31 H (6-23) mg/dl Creatinine 2.05 H D (0.6-1.2) mg/dl Glucose 78 (70-99(Fasting)) mg/dl Calcium 8.6 (8.6-10.3) mg/dl Total Protein 5.8 L (6.0-8.3) gm/dl Albumin 3.5 (3.4-5.0) gm/dl Intake and Output 08/20/24 08/21/24 08/21/24 22:59 06:59 14:59 Intake Total 449.434 / 1662.434 463 / 1662.434 26.35 / 26.35 Output Total 500 / 1300 500 / 1300 Balance -50.566 / 362.434 -37 / 362.434 26.35 / 26.35 Intake: IV 209.434 / 532.434 223 / 532.434 26.35 / 26.35 Heparin Sodium/Dextrose 25,000 109.434 / 232.434 123 / 232.434 26.35 / 26.35 units In 500 ml @ 850 UNITS/HR 17 mls/hr IV .Q24H KANDI Rx#: [id number] metroNIDAZOLE 500 mg In 100 ml 100 / 300 100 / 300 @ 100 mls/hr IV Q8H KANDI Rx#: [id number] Oral 240 / 1130 240 / 1130 Output: Urine 500 / 1300 500 / 1300 Other: Weight 87.7 kg Weight Measurement Method Built in [facility] (4) Acute renal failure Acute renal failure type: unspecified Qualified Code(s): N17.9 - Acute kidney failure, unspecified (6) Sepsis Acute renal failure type: unspecified Sepsis acute organ dysfunction status: with acute organ dysfunction Sepsis type: sepsis due to unspecified organism Severe sepsis acute organ dysfunction type: acute renal failure Severe sepsis shock status: with septic shock Qualified Code(s): A41.9 - Sepsis, unspecified organism; R65.21 - Severe sepsis with septic shock; N17.9 - Acute kidney failure, unspecified
[2024-03-07] MEDS: SODIUM CHLORIDE 0.65% NA SOLN 45 ML (OCEAN) ONE ×2 (11:23→12:56)
[2024-03-07 12:50] LABS: ANTI-Xa, UFH(UnfractionatedHep 0.46 IU/ml (0.3-0.7)
[2024-03-07] MEDS: PANTOprazole 40 MG TAB PO SCH (12:56)
[2024-03-08 06:43] LABS: Basophils # (auto) 0.03 K/uL (0.00-0.20); Basophils % (auto) 0.4 %; Eosinophils # (auto) 0.41 K/uL (0.00-0.50); Eosinophils % (auto) 4.8 %; Hematocrit (blood only) 29.7 % (37.0-47.0); Hemoglobin 9.9 g/dl (12.0-16.0); Immature Granulocytes # (auto) 0.07 K/uL (0.01-0.20); Immature Granulocytes % (auto) 0.8 %; Lymphocytes # (auto) 2.07 K/uL (1.20-3.40); Lymphocytes % (auto) 24.4 %; Mean Corpuscular Hemoglobin 31.6 pg (25.0-34.0); Mean Corpuscular Hgb Conc 33.3 g/dL (32.0-36.0); Mean Corpuscular Volume 94.9 fL (80.0-100.0); Mean Platelet Volume 10.9 fL (9.4-12.4); Monocytes # (auto) 0.53 K/uL (0.11-0.59); Monocytes % (auto) 6.2 %; Neutrophils # (auto) 5.39 K/uL (1.40-6.50); Neutrophils % (auto) 63.4 %; Nucleated RBC % (auto) 1.2 %; Platelet Count 334 K/uL (130-400); RDW Coefficient of Variation 12.6 % (11.5-14.5); RDW Standard Deviation 43.4 fL (36.4-46.3); Red Blood Count 3.13 M/uL (4.20-5.40)
[2024-03-08 06:57] LABS: Albumin Globulin Ratio 1.3 (0.9-2); Albumin Level 3.3 gm/dl (3.4-5.0); BUN Creatinine Ratio 15.1 (10-20); Bilirubin,Total 0.4 mg/dl (0.2-1.0); Calcium 8.4 mg/dl (8.6-10.3); Est GFR (African American) 48.6 ml/min; Globulin 2.5 gm/dl (2.5-4.0); Magnesium 1.9 mg/dl (1.7-2.4); Phosphorus 2.3 mg/dl (2.5-4.9); Potassium 4.1 mmol/L (3.5-5.1); Total Protein 5.8 gm/dl (6.0-8.3)
[2024-03-08 07:05] LABS: ANTI-Xa, UFH(UnfractionatedHep 0.37 IU/ml (0.3-0.7)
--- NOTE | 2024-03-08 11:17 | Anesthesiology Consultation ---
Date of Service March 08, 2024 Assessment & Plan Chart Review Chart Review: Acceptable Risk for Surgery, Patient NOT seen in Pre Admission Testing and entry level staff accountant initiated Consults Requested none Proposed Anesthesia Anesthesia Type: MAC History Surgery Operation Date: 03/08/24 13:00 Proposed Procedures p Transesophageal Echo w/Anesthesia possible R/L luzma Hoff DO Height/Weight Height: 5 ft Weight: 87.9 kg Allergies Allergy/AdvReac Type Severity Reaction Status Date / Time CHAPARRO Inhibitors Allergy Intermediate cough Verified 03/01/24 23:34 Penicillins Allergy Intermediate rash Verified 03/01/24 23:34 Medications Home Medications Medication Instructions Recorded Confirmed Last Taken albuterol sulfate 90 mcg/actuation 2 puff inhalation Q4 PRN .COUGH, 03/01/24 03/05/24 Unknown aerosol inhaler WHEEZING aspirin 81 mg tablet,delayed 81 mg PO QPM 03/01/24 03/05/24 Unknown release dextroamphetamine-amphetamine ER 20 mg PO DAILY PRN .. 03/01/24 03/05/24 Unknown 20 mg 24hr capsule,extend release fluoxetine 40 mg capsule 40 mg PO QPM 03/01/24 03/05/24 Unknown insulin aspart U-100 100 unit/mL 0 unit subcut DIRECTED 03/01/24 03/05/24 Unknown subcutaneous solution (Novolog U-100 Insulin aspart) losartan 50 mg tablet 50 mg PO QPM 03/01/24 03/05/24 Unknown lovastatin 40 mg tablet 40 mg PO QPM 03/01/24 03/05/24 Unknown multivitamin-ferrous 1 tab PO DAILY 03/01/24 03/05/24 Unknown fumarate-folic acid 18 mg-400 mcg tablet (Centrum Complete) ondansetron HCl 4 mg tablet 4 mg PO Q8 PRN Nausea 03/01/24 03/05/24 Unknown semaglutide 1 mg/dose (4 mg/3 mL) 1 mg subcut .QFRIDAY 03/01/24 03/05/24 02/24/24 subcutaneous pen injector (Ozempic) oxycodone-acetaminophen 5 mg-325 1 tab PO Q6H PRN pain #10 tabs 03/02/24 03/05/24 Unknown mg tablet cefdinir 300 mg capsule 300 mg PO BID 5 days #10 caps 03/03/24 03/05/24 Unknown Active Medications Generic Name Dose Route Start Last Admin Trade Name Freq PRN Reason Stop Dose Admin Acetaminophen 650 mg 03/06/24 08:56 03/07/24 13:52 Acetaminophen 325 Mg Tab PO 04/05/24 08:55 650 mg Q4H PRN Administration Pain or Fever Aspirin 81 mg 03/05/24 21:00 03/07/24 21:24 Aspirin 81 Mg Ectab PO 04/04/24 20:59 81 mg QPM KANDI Administration Docusate Sodium 100 mg 03/05/24 21:00 03/08/24 08:39 Docusate Sodium 100 Mg Cap PO 04/04/24 20:59 Not Given BID KANDI Fluoxetine HCl 40 mg 03/05/24 21:00 03/07/24 21:23 Fluoxetine Hcl 20 Mg Cap PO 04/04/24 20:59 40 mg QPM KANDI Administration Hydromorphone HCl 0.5 mg 03/05/24 20:21 03/08/24 04:27 Hydromorphone Inj 0.5 Mg/0.5 Ml Syr IV 03/19/24 20:20 0.5 mg Q6H PRN Administration Severe Pain (Scale 7, 8, 9,10) Metronidazole 500 mg in 100 mls @ 100 mls/hr 03/05/24 20:00 03/08/24 05:22 Flagyl IV 03/12/24 12:59 Infused Q8H KANDI Infusion Protocol Heparin Sodium/Dextrose 25,000 units in 500 mls @ 17 mls/hr 03/06/24 12:30 03/08/24 07:08 Heparin Sodium/Dextrose IV 04/05/24 12:29 850 units/hr .Q24H KANDI 17 mls/hr Titration Protocol 850 UNITS/HR Insulin Aspart 1 each 03/05/24 21:00 03/08/24 09:19 Insulin, Rapid-Acting Pump SC 04/04/24 20:59 Not Given ACHS KANDI Protocol Lovastatin 40 mg 03/05/24 21:00 03/07/24 21:25 Lovastatin 20 Mg Tab PO 04/04/24 20:59 40 mg QPM KANDI Administration Miscellaneous 0 each 03/05/24 21:00 03/08/24 09:19 Continuous Glucose Monitor N/A 04/04/24 20:59 1 each ACHS KANDI Administration Oxycodone/Acetaminophen 1 tab 03/05/24 20:23 03/07/24 21:29 Oxycodone/Acetaminophen 5mg/325mg Tab PO 03/19/24 18:30 1 tab Q6H PRN Administration Mild-Mod Pain (Scale 1-6) Pantoprazole Sodium 40 mg 03/07/24 12:30 03/07/24 12:56 Pantoprazole 40 Mg Tab PO 04/06/24 12:29 40 mg QAM KANDI Administration Past Medical History Medical History CKD (chronic kidney disease) stage 3, GFR 30-59 ml/min Cervical radiculopathy DM (diabetes mellitus), type 1 Past Surgical History Surgical History Hx of eye surgery History of female sterilization History of carpal tunnel surgery Social History Smoking Status: Never smoker Do You Dip or Chew Tobacco: No Hx Alcohol Use: Yes Alcohol type: wine alcohol intake frequency: a few times a week Hx Substance Use: No substance use type: does not use Physical Exam Vital Signs Last Vital Signs Temp 36.6 C 03/08/24 07:35 Pulse 88 03/08/24 07:35 Resp 18 03/08/24 07:35 BP 121/73 03/08/24 07:35 Pulse Ox 94 03/08/24 07:35 O2 Del Method Room Air 03/08/24 07:35 O2 Flow Rate 1 03/06/24 09:00 Testing Laboratory Results 03/08/24 05:19 03/08/24 05:19 APTT 29 Seconds (21-31) 03/05/24 18:28 Urine Color Dark Yellow 03/05/24 Unknown Urine Appearance Cloudy (Clear) A 03/05/24 Unknown Urine pH 5.0 (4.5-7.5) 03/05/24 Unknown Ur Specific [place] 1.029 (1.000-1.030) 03/05/24 Unknown Urine Protein 1+ (Negative) H 03/05/24 Unknown Urine Glucose (UA) Negative (Negative) 03/05/24 Unknown Urine Ketones 1+ (Negative) H 03/05/24 Unknown Urine Nitrite Negative (Negative) 03/05/24 Unknown Ur Leukocyte Esterase 1+ (Negative) H 03/05/24 Unknown Urine WBC (Auto) 11-20 /hpf (0-5) H 03/05/24 Unknown Urine RBC (Auto) 0-2 /hpf (0-2) 03/05/24 Unknown U Hyaline Cast (Auto) >20 /lpf (0-2) H 03/05/24 Unknown U Epithel Cells (Auto) 6-10 /hpf (0-2) H 03/05/24 Unknown Urine Bacteria (Auto) None Seen (None Seen) 03/05/24 Unknown 03/05/24 17:29 Aerobic Blood Culture - Preliminary Blood No growth in Aerobic bottle after 48 hours. Anaerobic Blood Culture - Final 03/06/24 10:25 Gram Stain - Final Pleural Fluid Aerobic and Anaerobic Culture - Preliminary No growth to date. 03/05/24 Unknown Urine Culture - Final Urine,Clean Catch No growth - less than 1,000 colonies/mL. 03/08/24 07:38 POC Glucose 111 H Electrocardiogram Date: 03/06/24 Test Reason : Blood Pressure : */* mmHG Vent. Rate : 81 BPM Atrial Rate : 81 BPM P-R Int : 128 ms QRS Dur : 136 ms QT Int : 414 ms P-R-T Axes : 71 68 -21 degrees QTcB Int : 480 ms Normal sinus rhythm Right bundle branch block T-wave inversion in multiple leads Abnormal ECG When compared with ECG of 06-Mar-2024 02:04, No significant change was found Confirmed by Eduardo Limon ([id number]) on 03/06/2024 2:32:55 PM Chest X-Ray Date: 03/06/24 CLINICAL HISTORY: S/P Thoracentesis TECHNIQUE: Single frontal radiograph of the chest was obtained. Comparison: Comparison is made to chest radiograph 03/05/2024 FINDINGS: Exam is limited by underpenetration. The cardiomediastinal silhouette is normal. The lungs are clear. No evidence of pleural effusion or pneumothorax. IMPRESSION: Interval decrease in size of right pleural effusion without evidence of pneumothorax in this patient status post thoracentesis. Echocardiogram Date: 03/06/24 Other Findings: + RVH (Right ventricle severely dilated. Mod decreased R ventricular function.) Large right to left interatrial shunt.
--- NOTE | 2024-03-08 11:55 | Hospitalist Progress Note ---
Date of Service March 08, 2024 Assessment & Plan (1) Shock: (2) Type 1 diabetes mellitus: (3) Non-ST elevation IN (NSTEMI): (4) Acute respiratory failure with hypoxia: (5) Acute renal failure: (6) Sepsis: Plan Pt is a 58yoF with PMHx significant for hypertension, hyperlipidemia, DM 1 on insulin pump, VAHE, CKD (baseline creatinine 1.3), ADHD, anxiety/mood disorder, recent appendectomy 3 days [employer] with post-op hypotension admitted with N/V and continued weakness at home since discharge. Found to be in septic shock, acute hypoxic respiratory failure, fluid overload with pleural effusions, acute kidney injury and complicated UTI on admission. Acute hypoxic respiratory Failure Pleural Effusions Had oxygen requirement as high as 10L on admission, currently on RA Chest xray noting pleural effusions, possible pneumonia. Procal elevated at 2.66 Chest CTA with no PE. Notes R>L pleural effusions Respiratory panel negative VBG reviewed Oxygen supplementation as needed, wean as tolerated Likely in setting of pleural effusions, possible pneumonia Pulmonology consulted, appreciate recommendations -s/p R sided thoracentesis on 03/06 -removal of 1000ml of serous fluid -transudate -pleural fluid pathology noting no tumor, only benign mesothelial cells, inflammatory cells and RBCs Improving CHF, acute Anasarca No prior diagnosis of CHF Chest CTA noting " Mild cardiomegaly with evidence of fluid overload/congestive change" Also R>L pleural effusions BNP reviewed 328 Echo on admission completed and reviewed -No left ventricular regional wall motion abnormalities with borderline hyperdynamic LV function on echocardiogram. -Indirect evidence (septal flattening) of right ventricular pressure and volume overload noted. Cardiology consulted, appreciate recs -TTE repeated (limited) and noted large intracardiac shunt with injection of agitated saline contrast. -Per cardiology, "In the setting of significant RV dilation and dysfunction as well as pulm hypertension this raises concern for atrial septal defect." -Recommending GENNARO for further evaluation -Advised holding diuretic therapy at this time, collaboration with nephrology. -Monitor I's and O's, daily weight, GFR, and electrolytes. -Untreated sleep apnea per pt's med hx -Consider addition of CPAP. CPAP ordered for qhs use GENNARO completed on 03/08, appreciate further cardiology recs Continue to monitor NSTEMI vs demand ischemia Trop elevated at 2428--> 3150-->4529-->peak at 5633 EKG reviewed , no evidence of STEMI Received aspirin 324mg in the ED, continue with aspirin 81mg daily Continue IV Heparin Continue statin Cardiology consulted as above, appreciate recommendations -Elevated high-sensitivity troponin more likely reflective of demand ischemia rather than plaque rupture event -Advised cardiac catheterization deferred at this time due to acute renal insufficiency. -"Cardiac catheterization will be considered as hospital course progresses pending ongoing assessment of renal function and respiratory status." -Continue IV heparin, aspirin, and statin therapy. Continue to monitor on telemetry Acute on Chronic Kidney Disease Cr baseline of 1.3, was elevated at 1.82 3 days ago Cr 3.38-->3.12-->2.05-->1.39 Pt fluid overloaded in setting of CHF/anasarca Received 2L of fluids in the ED, will defer on further fluids at this time Continue to hold home losartan Avoid nephrotoxic agents Nephrology consulted, appreciate recs. Recommended/Stated the following: -"-daily bmp -neither IVF nor diuresis indicated currently -continue strict I/O; agree w/ cautiously starting diet; no fluid limit indicated -continue to avoid nephrotoxins -no indication at this time for acute dialysis though cannot rule out need this admission just yet" Improving Severe sepsis/Septic Shock Complicated UTI Possible Pneumonia Pt with leukocytosis, tachypnea, hypotension WBC 12.08-->12.02-->9.31 Was being treated for a UTI at home with po cefdinir, urine cx grew pansensitive klebsiella Lactate wnl Procal elevated at 2.66 Chest imaging with possible pneumonia CT abd/pelvis with no abscess or acute infectious abnormality in post op setting UA with noted improvement from prior, repeat urine Cx with no significant growth. Postop incisions do not appear infected Blood Cx x1 set NGTD Holding home cefdinir Continue with IV Cefepime and Flagyl Continue to monitor BP Improving History of Appendicitis POD#6, s/p appendectomy on 03/02 with General surgery Post op hypotension that resolved with fluids, postop hypoxia and RO as above. CT abd/pelvis with no noted complications Stable DMI On Insulin pump, continue Ensure good glucose control Continue other home meds as directed. Trend labs CODE STATUS: Full code DVT prophylaxis: On heparin drip Diet: DMI, HH, dialysis renal, NPO after midnight Dispo: Continue care in PCU PT/OT ordered for further recs Admission and Anticipated Discharge Date Admission Date: March 05, 2024 Subjective pt seen in the AM before her GENNARO States she continues to get better, able to move now without significant pain, Denies chest pain or SOB Review of Systems Review of Systems: All systems reviewed & are unremarkable except as noted in Subjective Physical Exam Physical Exam: General: Alert, oriented. No acute distress Skin: No noted rashes or bruises Psych: Appropriate mood and affect HEENT: NC/AT CV: RRR Resp: Breath sounds clear bilaterally, no increased effort of breathing Abdomen: Soft, nontender Results & Data Results & Data Vital Signs (Past 12 Hours) Vital Signs Temp Pulse Resp BP BP Pulse Ox O2 Del Method 03/08/24 07:35 36.6 C 88 18 121/73 94 Room Air 03/08/24 03:34 36.6 C 84 17 125/74 94 Room Air 03/08/24 00:00 Room Air (2) Type 1 diabetes mellitus Diabetes mellitus complication status: with other specified complication Qualified Code(s): E10.69 - Type 1 diabetes mellitus with other specified complication (5) Acute renal failure Acute renal failure type: unspecified Qualified Code(s): N17.9 - Acute kidney failure, unspecified (6) Sepsis Acute renal failure type: unspecified Sepsis acute organ dysfunction status: with acute organ dysfunction Sepsis type: sepsis due to unspecified organism Severe sepsis acute organ dysfunction type: acute renal failure Severe sepsis shock status: with septic shock Qualified Code(s): A41.9 - Sepsis, unspecified organism; R65.21 - Severe sepsis with septic shock; N17.9 - Acute kidney failure, unspecified
[2024-03-08] MEDS: BENZOCAINE/TETRACAIN/BUTAM 50 APPLN/5 GM CAN EXT ONE (14:27)
--- NOTE | 2024-03-08 15:02 | Anesthesiology Progress Note ---
Date of Service March 08, 2024 Anesthesia Post Procedure Vital Signs Vital Signs: Temp Pulse Pulse Pulse Resp BP BP 03/08/24 14:51 79 16 152/94 H 03/08/24 14:03 78 18 174/100 H 03/08/24 12:47 03/08/24 11:44 99.0 F 78 16 153/83 H 03/08/24 08:00 62 03/08/24 07:35 97.9 F 88 18 121/73 03/08/24 03:34 97.9 F 84 17 125/74 03/08/24 00:00 03/07/24 22:09 98.1 F 80 17 153/78 H 03/07/24 20:00 03/07/24 19:30 98.4 F 80 21 138/80 Pulse Ox O2 Del Method O2 Flow Rate 03/08/24 14:51 100 Oxymask 4 03/08/24 14:03 98 Room Air 03/08/24 12:47 Room Air 03/08/24 11:44 99 Room Air 03/08/24 08:00 03/08/24 07:35 94 Room Air 03/08/24 03:34 94 Room Air 03/08/24 00:00 Room Air 03/07/24 22:09 97 Room Air 03/07/24 20:00 Room Air 03/07/24 19:30 96 Room Air Transfer of Care Handoff Completed per policy Notes Mental Status: alert / awake / arousable and participated in evaluation Patient Amnestic to Procedure: Yes Nausea / Vomiting: adequately controlled Pain: adequately controlled Airway Patency, RR, SpO2: stable & adequate BP & HR: stable & adequate Hydration State: stable & adequate Anesthetic Complications: no major complications apparent and Pt Satisfied with anesthetic care
[2024-03-08] MEDS: LIDOCAINE 2% 2 ML VIAL/AMP(20MG/ML) INFIL ONE (15:49)
[2024-03-08] MEDS: PROPOFOL IV EMULSION 10 MG/ML 20 ML VIAL IV ONE ×2 (15:49→15:59)
[2024-03-08] MEDS: KETAMINE HCL 10MG/ML SYR ONE (15:49)
[2024-03-08] MEDS: POT PHOSPHATE MONOBASIC W/ SOD TAB PO SCH (16:07)
[2024-03-08] MEDS: CEFEPIME 2,000 MG in SYRINGE 0 ML IV SCH (17:43)
--- NOTE | 2024-03-08 18:19 | Cardiology Progress Note ---
Date of Service March 08, 2024 Assessment & Plan (1) Non-ST elevation MA (NSTEMI): (2) Right ventricular dysfunction: (3) Acute right-sided heart failure: (4) Acute renal failure: (5) Acute respiratory failure with hypoxia: (6) Sepsis: Plan Transesophageal echocardiogram performed today demonstrating preserved LV systolic function, moderate right ventricular enlargement with mildly reduced right ventricular function. There was no evidence of intracardiac shunt with in jection of agitated saline contrast. I suspect patient's transient RV dysfunction with acute decompensated heart failure secondary to untreated sleep apnea in the setting of volume overload. With improving renal function, plan right and left heart catheterization tomorrow for further assessment of NSTEMI and pulmonary hypertension. Risk versus benefit discussed with both patient and her . They are agreeable to proceed. N.p.o. except medications after midnight. Outpatient sleep medicine referral. I spent a total of 40 minutes on the date of service in preparation, delivery, and documentation of the care provided to this patient, excluding any time spent in the performance of separately billed services. Admission and Anticipated Discharge Date Admission Date: March 05, 2024 Subjective 58-year-old female seen and examined at the bedside. Feeling better today. Denies chest pain or shortness of breath. Blood pressure trending upward. Serum creatinine trending downward. Offers no new concerns/complaints. Review of Systems Review of Systems: All systems reviewed & are unremarkable except as noted in Subjective Physical Exam Constitutional: well nourished; no acute distress Respiratory: no respiratory distress, no labored breathing and no retractions Auscultation: + diminished lung sounds (Bases bilateral); no rales, no rhonchi and no wheezes Cardiovascular: Rate/Rhythm: regular rate and regular rhythm Heart Sounds: normal S1 and normal S2; no murmur Vessels: femoral pulses present and radial pulses present; no JVD and no carotid bruit Extremities: no edema Gastrointestinal (Abdomen): Inspection/Auscultation: normal bowel sounds; ab domen not distended Percussion/Palpation: + abdomen tender and abdomen soft; no guarding Neurologic: CN's II-XI intact bilaterally and moves all extremities; no focal motor deficits Results & Data Vital Signs (Past 12 Hours) Vital Signs Temp Pulse Pulse Pulse Resp BP Pulse Ox 03/08/24 16:00 74 03/08/24 15:06 79 16 171/89 H 100 03/08/24 14:51 79 16 152/94 H 100 03/08/24 14:03 78 18 174/100 H 98 03/08/24 12:47 03/08/24 11:44 37.2 C 78 16 153/83 H 99 03/08/24 08:00 62 03/08/24 07:35 36.6 C 88 18 121/73 94 O2 Del Method O2 Flow Rate 03/08/24 16:00 03/08/24 15:06 Oxymask 4 03/08/24 14:51 Oxymask 4 03/08/24 14:03 Room Air 03/08/24 12:47 Room Air 03/08/24 11:44 Room Air 03/08/24 08:00 03/08/24 07:35 Room Air (4) Acute renal failure Acute renal failure type: unspecified Qualified Code(s): N17.9 - Acute kidney failure, unspecified (6) Sepsis Acute renal failure type: unspecified Sepsis acute organ dysfunction status: with acute organ dysfunction Sepsis type: sepsis due to unspecified organism Severe sepsis acute organ dysfunction type: acute renal failure Severe sepsis shock status: with septic shock Qualified Code(s): A41.9 - Sepsis, unspecified organism; R65.21 - Severe sepsis with septic shock; N17.9 - Acute kidney failure, unspecified
[2024-03-09 08:10] LABS: Basophils # (auto) 0.03 K/uL (0.00-0.20); Basophils % (auto) 0.4 %; Eosinophils # (auto) 0.48 K/uL (0.00-0.50); Eosinophils % (auto) 5.7 %; Hematocrit (blood only) 27.6 % (37.0-47.0); Hemoglobin 9.1 g/dl (12.0-16.0); Immature Granulocytes # (auto) 0.07 K/uL (0.01-0.20); Immature Granulocytes % (auto) 0.8 %; Lymphocytes # (auto) 1.55 K/uL (1.20-3.40); Lymphocytes % (auto) 18.5 %; Mean Corpuscular Hemoglobin 31.6 pg (25.0-34.0); Mean Corpuscular Volume 95.8 fL (80.0-100.0); Mean Platelet Volume 10.1 fL (9.4-12.4); Monocytes # (auto) 0.84 K/uL (0.11-0.59); Neutrophils # (auto) 5.41 K/uL (1.40-6.50); Neutrophils % (auto) 64.6 %; Nucleated RBC # (auto) 0.04 K/uL (0.00-0.12); Nucleated RBC % (auto) 0.5 %; Platelet Count 333 K/uL (130-400); RDW Coefficient of Variation 12.5 % (11.5-14.5); RDW Standard Deviation 43.2 fL (36.4-46.3); Red Blood Count 2.88 M/uL (4.20-5.40); White Blood Count 8.38 K/ul (4.8-10.8)
[2024-03-09 08:30] LABS: Bilirubin,Total 0.4 mg/dl (0.2-1.0); Magnesium 1.6 mg/dl (1.7-2.4); Potassium 3.5 mmol/L (3.5-5.1)
[2024-03-09 08:37] LABS: Albumin Globulin Ratio 1.3 (0.9-2); BUN Creatinine Ratio 11.5 (10-20); Creatinine Clr Calc Pharmacy 54.1 ml/min; Est GFR (African American) 62.5 ml/min; Est GFR (Non-African American) 53.9 ml/min; Globulin 2.3 gm/dl (2.5-4.0); Phosphorus 3.6 mg/dl (2.5-4.9); Total Protein 5.3 gm/dl (6.0-8.3)
[2024-03-09 08:40] LABS: Basophils # (auto) 0.04 K/uL (0.00-0.20); Basophils % (auto) 0.5 %; Eosinophils # (auto) 0.46 K/uL (0.00-0.50); Eosinophils % (auto) 5.7 %; Hemoglobin 9.2 g/dl (12.0-16.0); Immature Granulocytes # (auto) 0.07 K/uL (0.01-0.20); Immature Granulocytes % (auto) 0.9 %; Lymphocytes # (auto) 1.39 K/uL (1.20-3.40); Lymphocytes % (auto) 17.2 %; Mean Corpuscular Hemoglobin 31.5 pg (25.0-34.0); Mean Corpuscular Hgb Conc 32.9 g/dL (32.0-36.0); Mean Corpuscular Volume 95.9 fL (80.0-100.0); Mean Platelet Volume 9.6 fL (9.4-12.4); Monocytes # (auto) 0.81 K/uL (0.11-0.59); Neutrophils # (auto) 5.31 K/uL (1.40-6.50); Neutrophils % (auto) 65.7 %; Nucleated RBC # (auto) 0.03 K/uL (0.00-0.12); Nucleated RBC % (auto) 0.4 %; Platelet Count 322 K/uL (130-400); RDW Coefficient of Variation 12.5 % (11.5-14.5); RDW Standard Deviation 43.7 fL (36.4-46.3); Red Blood Count 2.92 M/uL (4.20-5.40); White Blood Count 8.08 K/ul (4.8-10.8)
--- NOTE | 2024-03-09 09:47 | Pre Anesthesia Assessment ---
Date of Service March 09, 2024 Pre Sedation Assessment Vital Signs Temp Pulse Pulse Pulse Resp BP BP 03/09/24 04:07 36.9 C 63 17 150/77 H 03/09/24 00:00 03/08/24 22:13 37.1 C 75 19 130/76 03/08/24 19:50 36.9 C 68 20 164/88 H 03/08/24 16:00 74 03/08/24 15:06 79 16 171/89 H 03/08/24 14:51 79 16 152/94 H 03/08/24 14:03 78 18 174/100 H 03/08/24 12:47 03/08/24 11:44 37.2 C 78 16 153/83 H Pulse Ox O2 Del Method O2 Flow Rate 03/09/24 04:07 96 Room Air 03/09/24 00:00 Room Air 03/08/24 22:13 93 Room Air 03/08/24 19:50 99 Room Air 03/08/24 16:00 03/08/24 15:06 100 Oxymask 4 03/08/24 14:51 100 Oxymask 4 03/08/24 14:03 98 Room Air 03/08/24 12:47 Room Air 03/08/24 11:44 99 Room Air Cardiovascular + regular rate and + regular rhythm + S1 normal, + S2 normal and + murmur (1/6 mid systolic murmur heard at LSB) + femoral pulses present and + radial pulses present; no JVD no edema Respiratory + respiratory effort normal; no respiratory distress no crackles, no rales, no rhonchi and no wheezes Pre-Sedation Airway Assessment Smoking Status: Never smoker Thyromental Distance: > or= 3.5 Finger Breadths Mallampati Class: III ASA: ASA3 NPO Status Date of Last Intake of Fluids: 03/08/24 Date of Last Intake of Solid Food: 03/08/24 Procedure Planning Contraindications for Sedation: none Current Medications Reviewed: Yes Notes The planned sedation has been discussed with the patient. Informed Consent was obtained. I have identified the patient, determined the appropriateness of sedation and have assessed the patient immediately prior to the procedure. All medicine(s) and interventions are by my order.
[2024-03-09] MEDS: MIDAZOLAM HCL 1 MG/ML 2ML VIAL ONE ×3 (10:20→12:35)
--- NOTE | 2024-03-09 10:25 | Nephrology Progress Note ---
Date of Service March 09, 2024 Assessment & Plan (1) Acute renal failure: Plan: resolved nonoliguric stage 2 RO on CKD3 likely from ischemia/prerenal process; no e/o contrast induced nephropathy from admission studies though for IV con today for [facility]. presented 03/05 w/ creatinine 3.4 (peak). baseline 1.4 w/ 50 mg daily albuminuria >> CKD 3 neither A nor B mild stable NAGMA noted; would not intervene at this time -daily bmp >>now for emergent transfer to [facility] for RP bleed >> high risk for recurrent RO in this setting particularly after IV con exposure with [facility] and now w/ hypotension (SBP 90) starting pressors Do not believe neph f/u in [facility] indicated from the getgo though high risk for recurrent RO; will arrange for appropriate f/u as OP pending clinical course. (2) Non-ST elevation NV (NSTEMI): Plan: 03/06 > s/p LAD stent x 2 today on dual AP therapy (3) Right ventricular dysfunction: Plan: as per cardiology >> GENNARO reassuring > w/ only mildly reduced RV function and no R>L shunt; f/u R/[facility] results and cardiology recs; ? 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 and while there developed 10/10 abd pain > CT scan notable for RP bleed; seen in ICU immediately after return from CT scan; plan is for [facility] transfer; pt participation in ROS limited, bedside Review of Systems 2 Review of Systems: Other (limited by pt abd pain; no sob.) Physical Exam 2 Constitutional: well developed (lying flat on RA), well nourished, + obese and + lethargic; no acute distress Eyes: EOM intact bilaterally ENMT: Ears: no external ear abnormality Nose: no external nose abnormality Mouth: + dry oral mucous membranes Neck: no nuchal rigidity Respiratory: normal respiratory effort Auscultation: + diminished lung sounds (anterior exam) Cardiovascular: RRR, no murmur, no edema Gastrointestinal (Abdomen): Inspection/Auscultation: + abdominal wall ecchymosis and + hypoactive bowel sounds; no abdominal edema P ercussion/Palpation: + abdomen tender; no ascites Musculoskeletal: Extremities: strength 5/5 throughout Skin: no rashes, warm and dry Results & Data Vital Signs (Past 12 Hours) Vital Signs Temp Pulse Resp BP BP Pulse Ox O2 Del Method 03/09/24 09:30 77 16 183/91 H 97 Room Air 03/09/24 04:07 36.9 C 63 17 150/77 H 96 Room Air 03/09/24 00:00 Room Air Laboratory Results 03/09/24 08:19 03/09/24 07:43 (1) Acute renal failure Acute renal failure type: unspecified Qualified Code(s): N17.9 - Acute kidney failure, unspecified
[2024-03-09 10:50] LABS: iSTAT Arterial Blood Gas HCO3 22 meg/L (19-24); iSTAT Arterial Blood Gas pCO2 40 mmHg (35-46); iSTAT Arterial Blood Gas pH 7.34 (7.35-7.45); iSTAT Arterial Blood Gas pO2 < 32 mmHg (80-95); iSTAT Carbon Dioxide 23 mmol/L (24-31); iSTAT Hematocrit 25 % (37-47); iSTAT Hemoglobin 8.5 g/dl (12.0-16.0); iSTAT Potassium 3.4 mmol/L (3.3-5.0); iSTAT Sodium 142 mmol/L (135-144)
[2024-03-09] MEDS: LIDOCAINE 1% LOCAL 20 ML VIAL ONE (11:09)
--- NOTE | 2024-03-09 11:19 | Post Anesthesia Assessment ---
Date of Service March 09, 2024 Post Sedation Assessment Vital Signs Temp Pulse Pulse Resp BP BP BP 03/09/24 16:59 37 C 90 18 99/68 L 03/09/24 16:17 36.7 C 85 18 118/83 03/09/24 16:09 36.6 C 89 18 124/70 03/09/24 16:00 84 03/09/24 15:33 84 15 03/09/24 15:31 102/69 03/09/24 15:17 37 C 85 16 85/46 L 03/09/24 14:48 37 C 86 93/53 L 03/09/24 14:45 85 12 03/09/24 14:33 84 12 03/09/24 14:33 37 C 85 12 97/50 L 03/09/24 14:31 97/50 L 03/09/24 14:21 81 03/09/24 14:17 37.1 C 82 16 113/50 L 03/09/24 14:15 80 18 03/09/24 14:15 113/50 L 03/09/24 14:01 37.1 C 82 12 121/69 03/09/24 14:00 82 12 03/09/24 14:00 121/69 03/09/24 14:00 121/69 03/09/24 14:00 121/69 03/09/24 13:57 82 03/09/24 13:42 80 14 03/09/24 13:39 80 9 L 03/09/24 13:30 93/48 L 03/09/24 13:30 93/48 L 03/09/24 13:24 81 24 03/09/24 13:18 81 22 03/09/24 13:15 90/58 L 03/09/24 13:10 78 03/09/24 13:06 78 13 03/09/24 13:00 100/52 L 03/09/24 12:54 81 13 03/09/24 12:45 112/61 03/09/24 12:36 86 27 H 03/09/24 12:30 88 30 H 03/09/24 09:30 77 16 183/91 H 03/09/24 08:00 75 03/09/24 04:07 36.9 C 63 17 150/77 H 03/09/24 00:00 03/08/24 22:13 37.1 C 75 19 130/76 03/08/24 19:50 36.9 C 68 20 164/88 H Pulse Ox O2 Del Method 03/09/24 16:59 100 03/09/24 16:17 98 03/09/24 16:09 100 03/09/24 16:00 03/09/24 15:33 97 03/09/24 15:31 03/09/24 15:17 99 03/09/24 14:48 96 03/09/24 14:45 98 03/09/24 14:33 96 03/09/24 14:33 97 03/09/24 14:31 03/09/24 14:21 97 Room Air 03/09/24 14:17 96 03/09/24 14:15 96 03/09/24 14:15 03/09/24 14:01 95 03/09/24 14:00 96 03/09/24 14:00 03/09/24 14:00 03/09/24 14:00 03/09/24 13:57 94 03/09/24 13:42 98 03/09/24 13:39 96 03/09/24 13:30 03/09/24 13:30 03/09/24 13:24 92 Room Air 03/09/24 13:18 03/09/24 13:15 93 Room Air 03/09/24 13:10 03/09/24 13:06 03/09/24 13:00 03/09/24 12:54 03/09/24 12:45 03/09/24 12:36 03/09/24 12:30 03/09/24 09:30 97 Room Air 03/09/24 08:00 03/09/24 04:07 96 Room Air 03/09/24 00:00 Room Air 03/08/24 22:13 93 Room Air 03/08/24 19:50 99 Room Air Recovery Score Activity: Moves 4 extremities Respiration: Deep Breath/Cough Circulation: +/-20% PreAnes Value Consciousness: Fully Awake Oxygen Saturation: > 92% On Room Air Post Anesthesia Score: 10 Discharge Sedation Level of Care: Phase I Post Sedation Plan On clinical assessment, the patient appears to have tolerated the sedation without complications. Patient is recovering as anticipated. Patient will continue to be monitored by nursing and may be discharged when sedation discharge criteria are met per below protocol. Upon Completions of procedure up to 15 minutes continue every 5 minute vital signs and the P.A.R. score; then discharge to a Phase I or Fast Track to Phase II per the following guidelines: * Discharge Patient to appropriate Phase II area if PAR is 8 or greater or return to pre- procedure baseline. The post - procedure orders will be as directed. * If PAR score is less than 8 or not return to pre-procedure baseline then patient will follow Phase I monitoring till PAR is reached for Phase II. The Phase I may be done in procedure room or may call to secure a Phase I area. * If naloxone or flumazenil are used for reversal, hold in Phase I for continued monitoring from when last reversal dose was given for a minimum of 60 minutes or longer pending the nurse and/or physician discretion of patient condition before discharge to Phase II. Please call the Sedation Physician to re-evaluate and complete post-note for discharge to Phase II area. Do NOT discharge from procedure sedation or Phase 1 until post- sedation evaluation note is complete by procedure /sedation MD Sedation Discharge Instructions to be given to the patient at discharge to home.
--- NOTE | 2024-03-09 11:32 | Cardiac Catheterization ---
Cardiac Cath Procedure Full Procedure Date March 09, 2024 Pre-Procedure Diagnosis Pre-Procedure Diagnosis: Non STEMI AUC Score AUC Score: 8 Post-Procedure Diagnosis Post-Procedure Diagnosis: Severe CAD and Normal Intracardiac Pressures Procedure(s) Performed Procedure(s) Performed: Coronary Angiography, Left Heart Cath and Right Heart Cath Banking Specialist Sukhwinder Hoff DO [employer] Instructor(s) Silvia RT Estimated Blood Loss Estimated Blood Loss: 7cc Medication(s) Medication(s): Fentanyl, Lidocaine 1% and Versed Summary of Findings 90% mid LAD 40% distal LAD PA O2 sat: 56% FA O2 sat: 96% Qp/Qs 1.0 Hemodynamics Rest Ao:: 115/59/82 Final Ao: 127/60/84 LV: 124/0/1 RA: 2mmHg RV: 25/6/7 PA: 24//13 PW: 3mmHg Recommendations Recommendations: PCI without planned CABG (Interventional cardiology, Dr. Mehta, consulted for PCI of LAD) Specimens Specimens: None Radiation Exposure (mGy) 871 Contrast (mls) 50 Fluids (cc crystalloids) Fluids (cc crystalloids): 60 Nss Drains Drains: N/A Anesthesia Moderate sedation. Start 1009. End 1053. Sedation monitor: Natalie MCDANIEL Procedural Complication(s) None (No apparent complications at the conclusion of the diagnostic portion of the procedure.) Disposition Patient remained in Floor Cashier for PCI of the LAD. I attest to the content of the Intraoperative Record and any orders documented therein. Any exceptions are noted below. ACC Data: Floor Cashier Cardiac Status Clinical evaluation leading to the procedure 58-year-old female presents with non-STEMI and acute heart failure. CAD Presenation: Non STEMI Heart Failure: NYHA Class: CCS II Cardiogenic Shock within 24 Hours: No Cardiac Arrest within 24 Hours: No Imaging Studies Past 6 Months: No Stress Studies Past 6 Months: No STEMI OR Non-STEMI Symptom Onset Date: 03/06/24 Thrombolytics: No Coronary Anatomy Dominant: Right Left Main (% Stenosis): Normal LAD (% Stenosis): Proximal (30%), Mid (90%) and Distal (40%) D1 (% Stenosis): Proximal (30% small vessel) D2 (% Stenosis): Mid (diffuse luminal irregularities, small vessel) Circumflex (% Stenosis): Normal OM1 (% Stenosis): Normal RCA (% Stenosis): Mid (20% diffuse) R PDA (% Stenosis): Normal R PL1 (% Stenosis): Normal (small vessel) R PL2 (% Stenosis): Normal (small vessel) Diagnostic Physicians Name: Sukhwinder Hoff DO Closure Device Percutaneous Entry Location: Femoral (Femoral arterial and venous sheath in place at conclusion of diagnostic study.) Recommendations: PCI without planned CABG (Interventional cardiology, Dr. Mehta, consulted for PCI of LAD) Intraprocedure Events Significant Disection: No Perforation: No
[2024-03-09 11:41] LABS: iSTAT Arterial Blood Gas HCO3 20 meg/L (19-24); iSTAT Arterial Blood Gas pCO2 36 mmHg (35-46); iSTAT Arterial Blood Gas pH 7.36 (7.35-7.45); iSTAT Arterial Blood Gas pO2 85 mmHg (80-95); iSTAT Carbon Dioxide 21 mmol/L (24-31); iSTAT Hematocrit 23 % (37-47); iSTAT Hemoglobin 7.8 g/dl (12.0-16.0); iSTAT Potassium 3.3 mmol/L (3.3-5.0); iSTAT Sodium 143 mmol/L (135-144)
[2024-03-09] MEDS: fentaNYL citrate PF 100 MCG/2 ML VIAL ONE (11:48)
[2024-03-09] MEDS: HEPARIN (PORCINE) 1000 UNIT/ML 10 ML (CATH LAB USE ONLY) ONE (11:55)
[2024-03-09] MEDS: IODIXANOL (VISIPAQUE) 320 MG/ML 100ML IV ONE (11:56)
[2024-03-09 12:08] LABS: iSTAT Arterial Blood Gas HCO3 19 meg/L (19-24); iSTAT Arterial Blood Gas pCO2 35 mmHg (35-46); iSTAT Arterial Blood Gas pH 7.35 (7.35-7.45); iSTAT Arterial Blood Gas pO2 82 mmHg (80-95); iSTAT Carbon Dioxide 20 mmol/L (24-31); iSTAT Hematocrit 21 % (37-47); iSTAT Hemoglobin 7.1 g/dl (12.0-16.0); iSTAT Potassium 3.3 mmol/L (3.3-5.0); iSTAT Sodium 143 mmol/L (135-144)
[2024-03-09] MEDS: MoRPHine SULFATE 2 MG/ML CARP ONE (12:30)
[2024-03-09] MEDS: PHENYLEPHRINE 100MCG/ML 5ML SYR ONE (12:33)
[2024-03-09] MEDS: PHENYLEPHRINE HCL 25 MG/250 ML NSS IV ONE (12:33)
[2024-03-09] MEDS: TICAGRELOR 90 MG TAB ONE (12:34)
--- NOTE | 2024-03-09 12:38 | CT Scan Report ---
CT SCAN OF THE ABDOMEN AND PELVIS WITHOUT IV CONTRAST CLINICAL HISTORY: Generalized abdominal pain. Reported history of recent surgery. COMPARISON STUDY: Abdominal CT dated 03/05/2024. TECHNIQUE: CT scan of the abdomen and pelvis is performed from the lung bases to the proximal femora. Images are reviewed in the axial, sagittal, and coronal planes. IV contrast was not administered for this examination as per the referring clinician. Note that the examination is significantly suboptim al without oral or IV contrast. A dose lowering technique was utilized adhering to the principles of ALARA. CT DOSE: 1366.67 mGy.cm FINDINGS: Lung bases: The heart is normal in size and without pericardial effusion. The coronary arteries are d ensely calcified. There are small to moderate pleural effusions with dependent consolidation. A small hiatal hernia is noted. Liver: The unenhanced liver is normal in size, contour, and attenuation. There is no intrahepatic eusebio iary ductal dilatation. Gallbladder: Unremarkable. Spleen: Normal in size and attenuation. There are calcified splenic granulomas. Pancreas: The unenhanced pancreas is mildly atrophic and grossly unremarkable. Adrenal glands: Unremarkable. Kidneys: There is slight asymmetrical cortical atrophy of the left kidney as compared to the right. R etained cortical contrast is seen in both kidneys suggesting acute renal injury there is juyp-it-hovj rate right hydroureteronephrosis. The right ureter is dilated to the level of a hematoma in the pelvi s. No hydronephrosis is seen on the left. There is residual excreted contrast within the renal collec ting systems, right greater than left which degrades assessment for renal calculi. There is no eviden ce of contour deforming renal mass lesion. Abdominal vasculature: The abdominal aorta is normal in course and caliber noting advanced atheroscle rotic calcification. A right femoral approach central venous catheter is in place. Bowel: There is no bowel obstruction. The appendix is surgically absent. Peritoneum: There is a large complex/hyperdense fluid collection in the right pelvis seen on axial im age #276. This measures approximately 9 x 10 x 8 cm. This is new from 03/05/2024 and given the density likely represents a hematoma. This causes mass effect on the adjacent bladder. No intraperitoneal fr ee air is seen. There is a small volume of perihepatic and perisplenic ascites. Some of this is mildl y complex and may represent blood products There is also a small volume of pelvic ascites. There is a fat-containing umbilical hernia. Lymphadenopathy: None. Pelvic viscera: The the bladder is mildly distended and contains excreted IV contrast. This is deviat ed to the left secondary to a presumed pelvic hematoma. The uterus and adnexa are normal as visualize d. Skeletal structures: There is mild lumbar sacral spondylosis. No lytic or blastic lesions are seen. Soft tissues: The right rectus musculature appears asymmetrically thickened as compared to the left. This likely represents intramuscular hemorrhage, and there is intrapelvic extra peritoneal hemorrhage in the pelvis. There is body wall edema. IMPRESSION: 1. There is evidence of intramuscular hemorrhage within the right rectus abdominis, with intrapelvic extraperitoneal blood products seen in the pelvis. 2. There is an approximately 10 cm complex/hyperdense fluid collection in the right pelvis as detaile d above. This is new from 03/05/2024 and this is also consistent with hematoma. It is unclear if this is intra or extraperitoneal. 3. The right pelvic hematoma causes mass effect on the bladder and the distal right ureter, resulting in mild to moderate right hydroureteronephrosis. 4. There is a small volume of abdominopelvic ascites. Some of this appears hyperdense and also likely represents blood products. 5. Retained cortical contrast is seen within both kidneys, right greater than left. This can be seen with acute renal injury. 6. Small to moderate pleural effusions with dependent consolidation. This is similar to previous. 7. Additional findings as detailed above. ACT 112: Negative or not required by law. Electronically signed by: Km Henry M.D. 03/09/2024 12:37 PM
--- NOTE | 2024-03-09 12:39 | Critical Care Progress Note ---
Date of Service March 09, 2024 Assessment & Plan (1) CAD (coronary artery disease): (2) Pleural effusion: (3) Pulmonary hypertension: (4) Shock: (5) Type 1 diabetes mellitus: Plan Reason Critically Ill: 58 YOF presents to the ICU with shock- multifactorial to include sepsis, cardiogenic, and possibly intravascular volume dehydration- noted to have significantly elevated troponin and ECG changes but without STEMI. To ICU to obtain ECHO for RWMA follow hemodynamics and support as it clinically presents itself. Her BP is improved since arrival to ICU Neuro - NO acute needs CAM ICU: Negative - no acute needs at this time Cardiac - NSTEMI, HTN -- Coronary artery disease S/p 2 stents in the LAD on 03/09/2024 With dual antiplatelet therapy --Shock On phenylephrine Could be secondary to procedure and sedation Continue with vasopressor support to keep MAP greater than 65 -- Pulmonary hypertension PASP 40 mmHg with enlarged RA and RV Could be chronic, she will ultimately benefit from a right heart cath and possibly left heart cath given the elevated troponins Respiratory -- Pleural effusion Bilateral S/p thoracentesis right-sided 03/06/2024, 1000 mL removed, transudative --History of VAHE Not tolerable to CPAP GI - -- Severe abdominal pain Suprapubic epigastric as well as bilateral flanks more on the right side New from before, no rebound Follow-up CT abdomen pelvis Pain management RENAL/LYTES - -- CKD Monitor BUNs/creatinine Avoid nephrotoxic medication - UTI - See below ENDO - DMI with NovoLog insulin pump - patient may continue pump with ACH/HS checks - clear diet for now ICU hyperglycemia protocol HEME - -- Acute blood loss anemia Monitor H&H Will give 2 units of PRBC stat ID - -- No clear source of infection right now - MRSA swab pending --Prophylaxis VTE: Heparin drip GI: None Lines: Peripheral Diet: Renal Plan: Pain management with morphine. Patient has severe abdominal pain/acute abdomen. Based on the CT abdomen pelvis we will decide what will be the next day. Given the drop in hemoglobin, possibility of retroperitoneal bleed is high I have personally spent 64 minutes of critical care time in the direct management of this patient. This is a life/limb threatening event. This includes time spent evaluating patient, direct bedside care, chart review, placing orders, interpretation of diagnostic studies, discussion with consultants, patient, and family members, as well as other required patient management activities. This time is exclusive of all separately billable procedures, and teaching time and separate from and in addition to any other critical care service time. Please note the above document was generated using voice recognition software. It may contain grammatical, syntax or spelling errors. Admission and Anticipated Discharge Date Admission Date: March 05, 2024 Subjective 58-year-old female known to critical care service that she was admitted to the hospital with RO and pleural effusion She was successfully downgraded after thoracentesis. Patient went for cardiac catheterization today, during which she complained of severe abdominal pain. CT abdomen pelvis was done which showed 10 cm retroperitoneal/intraperitoneal bleed with right sided mild to moderate hydronephrosis She was sent to the ICU for further management At the time of examination patient was on 0.1 off nor epi. She was in severe abdominal pain and discomfort. Denies any nausea or vomiting Her SBP was in 110s. Heart rate in the 80s. Denies any nausea vomiting No shortness of breath Review of Systems Review of Systems: All systems reviewed & are unremarkable except as noted in Subjective Physical Exam Physical Exam: Constitutional: Grimacing secondary to pain HEENT: EOMI, PERRLA Respiratory system: Decreased air entry bilaterally, no wheeze, no rhonchi, positive crackles bilaterally more on the right side CVS: S1-S2 positive, no murmurs or gallops Abdomen: Soft, severe epigastric, suprapubic, right flank tenderness, no rebound, decreased bowel sounds Extremities: +2 pulses bilaterally radialis/ dorsalis pedis, no cyanosis, +1 pitting edema bilateral lower extremity Neuro: Awake alert oriented x3 Psych: Anxious mood and affect G/U: No [place] Skin: no rashes, warm and dry Lymphatic: no cervical or axillary lymphadenopathy Results & Data Results & Data Vital Signs (Past 12 Hours) Vital Signs Temp Pulse Pulse Resp BP BP Pulse Ox 03/09/24 09:30 77 16 183/91 H 97 03/09/24 08:00 75 03/09/24 04:07 36.9 C 63 17 150/77 H 96 O2 Del Method 03/09/24 09:30 Room Air 03/09/24 08:00 03/09/24 04:07 Room Air Coding Level of Care Code 69565 CRITICAL CARE 1ST 30-74M Diagnoses CAD (coronary artery disease) I25.10 Pleural effusion J90 Pulmonary hypertension I27.20 Shock R57.9 Type 1 diabetes mellitus E10.69 Diabetes mellitus complication status: with other specified complication (5) Type 1 diabetes mellitus Diabetes mellitus complication status: with other specified complication Qualified Code(s): E10.69 - Type 1 diabetes mellitus with other specified complication
[2024-03-09] MEDS ORDERED: SODIUM CHLORIDE 0.9% 250 ML IV PRN ×2 (12:50→12:54)
[2024-03-09] MEDS: HYDROmorphone INJ 0.5 MG/0.5 ML SYR IV PRN (12:58)
[2024-03-09] MEDS: MoRPHine SULFATE 2 MG/ML CARP IV STA (13:02)
[2024-03-09] MEDS ORDERED: PHARMACY GLYCEMIC MGMT CONSULT PRN ×2 (13:13→19:35)
[2024-03-09] MEDS: OPTIRAY 350 ONE (14:12)
[2024-03-09] MEDS: niCARdipine HCL INJ 2.5 MG/ML 10 ML AMP ONE (14:12)
[2024-03-09] MEDS: NITROGLYCERIN/D5W 100MCG/ML 20ML SYR ONE (14:12)
[2024-03-09] MEDS: TICAGRELOR 90 MG TAB PO SCH (14:13)
--- NOTE | 2024-03-09 14:21 | Communication Note ---
Date of Service: March 09, 2024 Critical care addendum: Patient CT abdomen pelvis does show complex right-sided hematoma approximately 10 cm in size It has pressure effect on the right ureter leading to right-sided hydronephrosis. I called the transfer center and was able to get in touch with Dr. Cifuentes, ICU doctor who stated that he would be okay to accept the patient if IR is planning to do a procedure I then discussed the case with IR regarding the same and they stated that usually for intraperitoneal/retroperitoneal hematoma drainage is not Indicated especially that it can get rid of the tamponade physiology and cause more bleeding. There was no active extravasation on the CT chest with no embolization. I questioned regarding the hydronephrosis and they recommended to get urology involved and see if they are able to place a stent. Urology will be consulted. I spoke with patient's and informed him regarding the above discussion. They understand 2 units of PRBC will be given to the patient. I will change phenylephrine to Levophed. Continue with right femoral sheath as it would be used as central line access I have personally spent additional 45 minutes of critical care time in the direct management of this patient. This is a life/limb threatening event. This includes time spent evaluating patient, direct bedside care, chart review, placing orders, interpretation of diagnostic studies, discussion with consultants, patient, and family members, as well as other required patient management activities. This time is exclusive of all separately billable procedures, and teaching time and separate from and in addition to any other critical care service time. Please note the above document was generated using voice recognition software. It may contain grammatical, syntax or spelling errors. Coding Level of Care Code 76980 CRITICAL CARE EA ADD 30M
--- NOTE | 2024-03-09 14:38 | Urology Consultation ---
Date of Consultation March 09, 2024 Assessment & Plan (1) Hydronephrosis: (2) Hematoma: Plan 58-year-old critically ill female admitted to the ICU with shock- multifactorial to include sepsis, cardiogenic, and possibly intravascular volume dehydration. Patient went for cardiac catheterization today to better assess NSTEMI and is s/p LAD stent x 2 today. She complained of severe abdominal pain and a CT abdomen pelvis was done which showed 10 cm retroperitoneal/intraperitoneal bleed with right sided mild to moderate hydronephrosis. - Patient afebrile, in ICU on vasopressor support. - LabsWBC 8.08, hemoglobin 9.2, creatinine 1.13 - Currently receiving PRBC transfusion. - Urine culture 03/01 grew Klebsiella, repeat culture 03/05 negative. On cefepime. - We reviewed her CT findings, specifically the mild to moderate right-sided hydronephrosis secondary to the pelvic hematoma. - Discussed with patient/ ureteral stent placement. Risks/benefits discussed. They are agreeable. - Keep NPO. - Will continue to monitor closely and will determine timeframe for stent placement once patient is stable for procedure/anesthesia. - Urology to follow. Plan of care reviewed with Dr. Burch, on-call urologist. See attending note for further details and plan of care. Attending note: Patient independently assessed, examined, interviewed, and evaluated. Agree with note as above. Patient's vitals and labs were all reviewed. Pertinent values in the HPI and plan section. Imaging was reviewed interpreted by myself. Agree with read. Vitals were reviewed. Discussed findings extensively with patient and family. Reviewed with nurse practitioner as well as consulting physicians/team. Patient's complicated medical and surgical history was reviewed and summarized above. Patient's surgical, medical, social, and family history were all reviewed with pertinent values as above. Discussed patient's current diagnosis as well as concerns and issues. Reviewed different options moving forward. Discussed potential risks and benefits as well as possible options and concerns. Reviewed potential surgical options and interventions. Discussed potential issues and concerns related to intervention. Risk and benefits were discussed extensively with patient and any available family. Discussed potential risks related to anesthesia. Discussed risks of bleeding infection and injury. Patient with large pelvic hematoma. Had undergone a heart cath this morning. Had to undergo blood transfusion. Was on pressors for period of time due to hypotension. Has resolved with volume and blood transfusion. Imaging during acute bleed had shown significant displacement of the bladder with significant right-sided hydronephrosis and obstruction likely due to external compression from the large pelvic hematoma. Extensively reviewed with patient. Patient's imaging from the was also reviewed and evaluated. Patient's vitals have stabilized most recent blood pressure 132/69. Pulse 78. Temp was 37. Oxygen saturation 99% on room air. Patient's most recent labs were also reviewed please see above. Hemoglobin had dropped to 7 after heart catheterization. Has undergone 2 units of packed red blood cells. Patient is imaging have been reviewed interpreted by myself. Extensive conversation with patient and family. Still having considerable abdominal pain. Degree of pain from obstruction versus from compression from the hematoma is difficult to determine however with patient's recent RO concern related to the obstructive issues going on on the right ureter from external compression did discuss moving forward with evaluation. Discussed risk and benefits of procedure. Would plan to be done under sedation. Will plan for bilateral retrograde pyelograms and assessment possible bilateral stent placement. Risks and benefits discussed at length for procedure. These include bleeding, infection, injury to surrounding tissues or organs, and risks associated with anesthesia. Patient states understanding and agrees to proceed. Will sign consent and proceed. Plan for cystoscopy with bilateral retrograde pyelogram and possible stent. Reviewed extensively with patient and . All questions were answered. Patient was independently evaluated and assessed. Risk benefits were extensively reviewed. Patient's imaging was reviewed interpreted by myself all labs and vitals were reviewed with pertinent values in the HPI and plan section. Patient complicated medical and surgical history including the events leading up to the acute episode were extensively reviewed and summarized above. History of Present Illness Attending Physician: Marilin Crespo MD History of Present Illness 58 year old female with PMHx significant for hypertension, hyperlipidemia, DM 1 on insulin pump, VAHE, CKD (baseline creatinine 1.3), ADHD, anxiety/mood disorder, recent appendectomy 3 days with post-op hypotension admitted with N/V and continued weakness at home since discharge. Found to be in septic shock, acute hypoxic respiratory failure, fluid overload with pleural effusions, acute kidney injury and complicated UTI on admission. Patient went for cardiac catheterization today to better assess NSTEMI during which she complained of severe abdominal pain. CT abdomen pelvis was done which showed 10 cm retroperitoneal/intraperitoneal bleed with right sided mild to moderate hydronephrosis. She is now admitted to the ICU for further management. Urology is consulted for hydronephrosis. CT abdomen pelvis 03/09/24- 1. There is evidence of intramuscular hemorrhage within the right rectus abdominis, with intrapelvic extraperitoneal blood products seen in the pelvis. 2. There is an approximately 10 cm complex/hyperdense fluid collection in the right pelvis as detailed above. This is new from 03/05/2024 and this is also consistent with hematoma. It is unclear if this is intra or extraperitoneal. 3. The right pelvic hematoma causes mass effect on the bladder and the distal right ureter, resulting in mild to moderate right hydroureteronephrosis. 4. There is a small volume of abdominopelvic ascites. Some of this appears hyperdense and also likely represents blood products. 5. Retained cortical contrast is seen within both kidneys, right greater than left. This can be seen with acute renal injury. 6. Small to moderate pleural effusions with dependent consolidation. This is similar to previous. Patient seen at bedside in the ICU. Awake, resting in bed on arrival. at bedside. Receiving PRBC transfusion. On vasopressor support. Patterson draining clear yellow urine. She is having severe abdominal/flank pain. Has been NPO. Allergies Allergy/AdvReac Type Severity Reaction Status Date / Time CHAPARRO Inhibitors Allergy Intermediate cough Verified 03/01/24 23:34 Penicillins Allergy Intermediate rash Verified 03/01/24 23:34 Home Medications Medication Instructions Recorded Confirmed Type albuterol sulfate 90 mcg/actuation 2 puff inhalation Q4 PRN .COUGH, 03/01/24 03/05/24 History aerosol inhaler WHEEZING aspirin 81 mg tablet,delayed 81 mg PO QPM 03/01/24 03/05/24 History release dextroamphetamine-amphetamine ER 20 mg PO DAILY PRN .. 03/01/24 03/05/24 History 20 mg 24hr capsule,extend release fluoxetine 40 mg capsule 40 mg PO QPM 03/01/24 03/05/24 History insulin aspart U-100 100 unit/mL 0 unit subcut DIRECTED 03/01/24 03/05/24 History subcutaneous solution (Novolog U-100 Insulin aspart) losartan 50 mg tablet 50 mg PO QPM 03/01/24 03/05/24 History lovastatin 40 mg tablet 40 mg PO QPM 03/01/24 03/05/24 History multivitamin-ferrous 1 tab PO DAILY 03/01/24 03/05/24 History fumarate-folic acid 18 mg-400 mcg tablet (Centrum Complete) ondansetron HCl 4 mg tablet 4 mg PO Q8 PRN Nausea 03/01/24 03/05/24 History semaglutide 1 mg/dose (4 mg/3 mL) 1 mg subcut .QFRIDAY 03/01/24 03/05/24 History subcutaneous pen injector (Ozempic) oxycodone-acetaminophen 5 mg-325 1 tab PO Q6H PRN pain #10 tabs 03/02/24 03/05/24 Rx mg tablet cefdinir 300 mg capsule 300 mg PO BID 5 days #10 caps 03/03/24 03/05/24 Rx Patient History Medical History CKD (chronic kidney disease) stage 3, GFR 30-59 ml/min Cervical radiculopathy DM (diabetes mellitus), type 1 Surgical History Hx of eye surgery History of female sterilization History of carpal tunnel surgery Social History Smoking Status: Never smoker Second Hand Exposure: No; Do You Dip or Chew Tobacco: No; Hx Alcohol Use: Yes Alcohol type: wine Hx Substance Use: No Preferred Language: Slovenian Communication Ability: Effective Test Fixture Designer Required: No Beliefs That Will Affect Care: None Current Living Situation: Spouse Feels Safe at Home: Yes Assistive Devices: Other Review of Systems Review of Systems: All systems reviewed & are unremarkable except as noted in HPI & below Physical Exam Constitutional: Patient appears extremely uncomfortable and grimacing with pain Neck: normal visual inspection Respiratory: no respiratory distress Musculoskeletal: Head/Neck/Chest: normocephalic Neurologic: awake Psychiatric: Orientation: alert Genitourinary: Patterson intact Results & Data Vital Signs (Past 12 Hours) Vital Signs Temp Pulse Pulse Resp BP BP BP 03/09/24 14:17 37.1 C 82 16 113/50 L 03/09/24 14:01 37.1 C 82 12 121/69 03/09/24 13:15 90/58 L 03/09/24 13:10 78 03/09/24 13:06 78 13 03/09/24 13:00 100/52 L 03/09/24 12:54 81 13 03/09/24 12:45 112/61 03/09/24 12:36 86 27 H 03/09/24 12:30 88 30 H 03/09/24 09:30 77 16 183/91 H 03/09/24 08:00 75 03/09/24 04:07 36.9 C 63 17 150/77 H Pulse Ox O2 Del Method 03/09/24 14:17 96 03/09/24 14:01 95 03/09/24 13:15 93 Room Air 03/09/24 13:10 03/09/24 13:06 03/09/24 13:00 03/09/24 12:54 03/09/24 12:45 03/09/24 12:36 03/09/24 12:30 03/09/24 09:30 97 Room Air 03/09/24 08:00 03/09/24 04:07 96 Room Air PG Care Time/CCT Total # of Minutes Spent Total Time Spent with Patient: Total time spent is greater than 50% in coordination of care (as documented) at patient's floor/unit and/or counseling patient: Coding Level of Care Code 12810 IN/OBS CONSULT LVL 4,60M Diagnoses Hydronephrosis N13.30 Hematoma T14.8XXA
[2024-03-09] MEDS ORDERED: STAT IV Infusion **Titration per Protocol STA (14:42)
--- NOTE | 2024-03-09 14:54 | Cardiac Catheterization ---
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 Hoff note for diagnostic results) Diagnostic Physicians Name: Rafael Mehta MD, PhD Closure Device Recommendations: PCI without planned CABG Lesion Segment Name: LAD Culprit Artery: Yes Stenosis Prior to Rx (%): Up to 90% Chronic Total Occlusion: No Pre-Procedure AIDEE Flow: 1 Previously Treated Lesion: No Lesion Complexity: Non-High/Non-C Lesion Length (mm): 12 Thrombus Present: No Bifurcation Lesion: No Guidewire Across Lesion: Yes Intraprocedure Events Significant Disection: No Perforation: No Cardiac Cath Procedure Full Procedure Date March 09, 2024 Pre-Procedure Diagnosis Pre-Procedure Diagnosis: Non STEMI AUC Score AUC Score: 07 Post-Procedure Diagnosis Post-Procedure Diagnosis: Successful PCI Procedure(s) Performed Procedure(s) Performed: Drug Eluting Stent and Femoral Artery Angiography Ribbon Blocker Rafael Mehta MD, PhD Mobile Equipment Mechanic(s) Silvia RT Estimated Blood Loss Estimated Blood Loss: 10 cc Medication(s) Medication(s): Fentanyl, Heparin, Lidocaine 1%, Erik-Synephrine and Versed Summary of Findings Brief description: Patient had just completed diagnostic coronary angiography and right heart cath performed by Dr. Hoff via the right femoral artery and right femoral venous approach. I reviewed the coronary angiography with Dr. Hoff. Decision was made to attempt PCI of the LAD. Patient initially requested to urinate as she felt the need. She was placed on the bedpan. However she was unable to urinate. Beginning blood pressure was 147/70 mmHg. She received IV sedation and blood pressure was 116/65 mmHg. A 5 Slovak femoral artery sheath was exchanged over a long J-tip wire for a 6 Slovak femoral artery sheath. An EBU 3.5 guide catheter was advanced and used to engage the left main c oronary. Patient was provided 6000 units IV heparin in anticipation of PCI. BMW reversal guidewire was advanced under fluoroscopic guidance and positioned distally in the LAD. The lesion was predilated using a 2.0 x 12 mm trek balloon up to 12 jeniffer. Patient's blood pressure was checked and noted to be 73/41 mmHg. After checking the hemodynamic monitoring equipment decision was made to provide the patient with normal saline IV fluid bolus. Patient denied any chest pain but continued to complain of the need to urinate. Her blood pressure dropped further and she developed nausea requiring Zofran IV. She was given Erik-Synephrine 100 mcg IV twice with good response in her blood pressure. We removed the guidewire and the guide catheter in anticipation that she may not tolerate further interv ention. Fortunately, her blood pressure improved and after we checked for bleeding at the right femoral artery access site with limited femoral artery angiography she was placed on Erik-Synephrine drip. Her blood pressure improved and her nausea abated although she still had the need for urination. The EBU 3.5 guide catheter was reinserted and used to engage the left main coronary. BMW reversal guidewire was then advanced and again positioned distally in the LAD. A guide liner extension catheter was then advanced over the guidewire. The lesion was again predilated using a 2.0 x 15 mm trek balloon up to 12 jeniffer followed by a second inflation to 14 jeniffer. The balloon catheter was removed. An Henderson 2.0 x 15 mm drug-eluting stent was then advanced and positioned to cover the entire distal portion of the lesion. It was deployed at 12 jeniffer. Stent balloon was then removed. A 2.0 x 12 mm on drug-eluting stent was then advanced and positioned across the more proximal portion of the lesion with its distal edge overlapped with the proximal portion of the initial stent. This was then deployed at 13 jeniffer. Stent balloon was removed and angiography was performed. The guidewire was removed and final angiographic evaluation was performed. The patient's blood pressure was 94/46 mmHg. She continued to complain of pain in her right groin and pressure in her bladder. The femoral arterial sheath was exchanged over a wire for a 6 Slovak Angio-Seal closure device. This was deployed in the recommended fashion. We obtained immediate hemostasis and the patient remained adequately stable. She was provided Brilinta 180 mg p.o. After she was moved to the bed she also complained of lower back pain. Decision was made to order stat CT scan to evaluate for retroperitoneal hemorrhage. The patient had no chest pain throughout. She was subsequently transported to the CT scanner. This ended the case. PCI of LAD: Initial 90% stenosis is reduced to 0% stenosis post PCI. There is a significant stepdown at the distal edge with the final diameter there being 2.0 mm. AIDEE-3 flow post PCI No evidence of dissection or perforation post PCI Limited right iliofemoral angiography: 1. No angiographic evidence of acute bleeding. 2. Diffuse mild atherosclerosis 3. Sheath access just distal to the hypogastric artery 4. No significant IVP contrast noted in the urinary bladder Summary: 1. Successful ad hoc PCI for non-ST elevation IL and severe LAD disease as described in diagnostic cath report. Utilizing 2 overlapped drug-eluting stents to cover the mid and early distal LAD. 2. Stat CT scan of the abdomen and pelvis to evaluate for retroperitoneal bleed, hematoma, etc. 3. Patient will remain on dual antiplatelet therapy using aspirin 81 mg daily and Brilinta 90 mg p.o. twice daily. Minimum 6 months therapy. Patient will also be initiated on guideline directed medical therapy for secondary prevention of coronary artery disease per primary emergency department coordinator. 4. Await results of CT scan for further recommendations. Hemodynamics Rest Ao:: 115/59 mmHg Final Ao: 94/46 mmHg LV: Not performed Recommendations Recommendations: PCI without planned CABG Specimens Specimens: None Radiation Exposure (mGy) 2631 mGy, fluoroscopy time 16.5 minutes (total) Contrast (mls) Total 130 mL Drains Drains: N/A Anesthesia 2 mg Versed, 50 mcg fentanyl IV. Start time 1054, end time 1152 Procedural Complication(s) Hypotension suspicion for bleeding Disposition ICU (After completion of CT scan) I attest to the content of the Intraoperative Record and any orders documented therein. Any exceptions are noted below. [facility] Card Cath Procedure Codes Moderate Sedation Procedure 1: Sedation/Anesthesia: 81116 Mod Sedation by a different physician ;Init15 Min Child Age 5&Up (Initial 15 minutes, start time 1054) Procedure 2: Sedation/Anesthesia: 40551 Mod Sedation by a different physician;Ea Additional 15 Minutes (Additional 43 minutes, and 1152) Stenting Procedure 1: Cardiovascular Stent Procedures: 84793 Perc transcatheter placement of intracoronary stent(s), with ang (LAD) Vascular Charges Angiography/Venography Procedure 1: Angiography/Venography charges: [id number] Angiography, extremity, unilateral, radiological S&I PG Care Time/CCT Total # of Minutes Spent Total Time Spent with Patient: Total time spent is greater than 50% in coordination of care (as documented) at patient's floor/unit and/or counseling patient:
[2024-03-09] MEDS: NOREPINEPHRINE/D5W 4 MG/250 ML PLCT IV SCH (14:58)
[2024-03-09] MEDS: MAGNESIUM SULFATE / D5W 1 GM/100 ML BAG IV SCH ×2 (14:58→16:08)
--- NOTE | 2024-03-09 15:12 | Hospitalist Progress Note ---
Date of Service March 09, 2024 Assessment & Plan (1) Shock: (2) Type 1 diabetes mellitus: (3) Non-ST elevation [place] (NSTEMI): (4) Acute respiratory failure with hypoxia: (5) Acute renal failure: (6) Sepsis: Plan Pt is a 58yoF with PMHx significant for hypertension, hyperlipidemia, DM 1 on insulin pump, VAHE, CKD (baseline creatinine 1.3), ADHD, anxiety/mood disorder, recent appendectomy 3 days [employer] with post-op hypotension admitted with N/V and continued weakness at home since discharge. Found to be in septic shock, acute hypoxic respiratory failure, fluid overload with pleural effusions, acute kidney injury and complicated UTI on admission. Retroperitoneal Bleed Hematoma Mild to moderate right hydroureteronephrosis Hematoma and retroperitoneal bleed noted on CT abd/pelvis on 03/09 Pt's hgb dropped to 7.1 s/p transfusion 2U pRBCs Urology consult for possible stent placement in setting of hydro Continue aspirin and Brilinta in setting of cardiac stent placement on 03/09 Continue to monitor H/H If pt's status worsening, consider CTA abd/pelvis and transfer to tertiary care -attempts made for transfer on 03/09 to [facility] and [facility], advised conservative management at this time. Continue to monitor in ICU Hypotension Likely in setting of bleeding above Requiring pressor support in the ICU Transfuse and wean pressors as tolerated Continue to monitor Acute hypoxic respiratory Failure Pleural Effusions Had oxygen requirement as high as 10L on admission, currently on RA Chest xray noting pleural effusions, possible pneumonia. Procal elevated at 2.66 Chest CTA with no PE. Notes R>L pleural effusions Respiratory panel negative VBG reviewed Oxygen supplementation as needed, wean as tolerated Likely in setting of pleural effusions, possible pneumonia Pulmonology consulted, appreciate recommendations -s/p R sided thoracentesis on 03/06 -removal of 1000ml of serous fluid -transudate -pleural fluid pathology noting no tumor, only benign mesothelial cells, inflammatory cells and RBCs Improving CHF, acute Anasarca No prior diagnosis of CHF Chest CTA noting " Mild cardiomegaly with evidence of fluid overload/congestive change" Also R>L pleural effusions BNP reviewed 328 Echo on admission completed and reviewed -No left ventricular regional wall motion abnormalities with borderline hyperdynamic LV function on echocardiogram. -Indirect evidence (septal flattening) of right ventricular pressure and volume overload noted. Cardiology consulted, appreciate recs -TTE repeated (limited) and noted large intracardiac shunt with injection of agitated saline contrast. -Per cardiology, "In the setting of significant RV dilation and dysfunction as well as pulm hypertension this raises concern for atrial septal defect." -Recommending GENNARO for further evaluation -Advised holding diuretic therapy at this time, collaboration with nephrology. -Monitor I's and O's, daily weight, GFR, and electrolytes. -Untreated sleep apnea per pt's med hx -Consider addition of CPAP. CPAP ordered for qhs use GENNARO completed on 03/08, appreciate further cardiology recs -"Transesophageal echocardiogram performed today demonstrating preserved LV systolic function, moderate right ventricular enlargement with mildly reduced right ventricular function. There was no evidence of intracardiac shunt with injection of agitated saline contrast. I suspect patient's transient RV dysfunction with acute decompensated heart failure secondary to untreated sleep apnea in the setting of volume overload. With improving renal function, plan right and left heart catheterization... for further assessment of NSTEMI and pulmonary hypertension. Outpatient sleep medicine referral." s/p cardiac cath on 03/09, with placement of 2 stents in LAD -continue with aspirin and Brillinta Continue to monitor NSTEMI vs demand ischemia Trop elevated at 2428--> 3150-->4529-->peak at 5633 EKG reviewed , no evidence of STEMI Received aspirin 324mg in the ED, continue with aspirin 81mg daily Continue IV Heparin Continue statin Cardiology consulted as above, appreciate recommendations -Elevated high-sensitivity troponin more likely reflective of demand ischemia rather than plaque rupture event -Advised cardiac catheterization deferred at this time due to acute renal insufficiency. -"Cardiac catheterization will be considered as hospital course progresses pending ongoing assessment of renal function and respiratory status." -Continue IV heparin, aspirin, and statin therapy. s/p cardiac cath on 03/09, with placement of 2 stents in LAD -continue with aspirin and Brillinta Continue to monitor on telemetry Acute on Chronic Kidney Disease Cr baseline of 1.3, was elevated at 1.82 3 days ago Cr 3.38-->3.12-->2.05-->1.39 Pt fluid overloaded in setting of CHF/anasarca Received 2L of fluids in the ED, will defer on further fluids at this time Continue to hold home losartan Avoid nephrotoxic agents Nephrology consulted, appreciate recs. Recommended/Stated the following: -"-daily bmp -neither IVF nor diuresis indicated currently -continue strict I/O; agree w/ cautiously starting diet; no fluid limit indicated -continue to avoid nephrotoxins -no indication at this time for acute dialysis though cannot rule out need this admission just yet" Improving Severe sepsis/Septic Shock Complicated UTI Possible Pneumonia Pt with leukocytosis, tachypnea, hypotension WBC 12.08-->12.02-->9.31 Was being treated for a UTI at home with po cefdinir, urine cx grew pansensitive klebsiella Lactate wnl Procal elevated at 2.66 Chest imaging with possible pneumonia CT abd/pelvis with no abscess or acute infectious abnormality in post op setting UA with noted improvement from prior, repeat urine Cx with no significant growth. Postop incisions do not appear infected Blood Cx x1 set NGTD Holding home cefdinir Continue with IV Cefepime and Flagyl Continue to monitor BP Improving History of Appendicitis POD#6, s/p appendectomy on 03/02 with General surgery Post op hypotension that resolved with fluids, postop hypoxia and RO as above. CT abd/pelvis with no noted complications Stable DMI On Insulin pump, continue Ensure good glucose control Continue other home meds as directed. Trend labs CODE STATUS: Full code DVT prophylaxis: On heparin drip Diet: DMI, HH, dialysis renal, NPO after midnight Dispo: Continue care in PCU PT/OT ordered for further recs Admission and Anticipated Discharge Date Admission Date: March 05, 2024 Subjective pt was seen multiple times during the day. Seen after cardiac cath. in lots of pain in right groin and abdomen. CT abd noting retroperitoneal bleed/ Contacted both [facility] and [facility] for potential transfers- both advised further monitoring and conservative management. Review of Systems Review of Systems: All systems reviewed & are unremarkable except as noted in Subjective Physical Exam Physical Exam: General: Alert, oriented. Psych: Appropriate mood and affect Neuro: writhing in pain HEENT: NC/AT CV: RRR Resp: Breath sounds clear bilaterally, no increased effort of breathing Abdomen:tender Extremities: edema in lower extremities bilaterally. Results & Data Results & Data Vital Signs (Past 12 Hours) Vital Signs Temp Pulse Pulse Resp BP BP BP 03/09/24 14:33 37 C 85 12 97/50 L 03/09/24 14:21 81 03/09/24 14:17 37.1 C 82 16 113/50 L 03/09/24 14:15 80 18 03/09/24 14:15 113/50 L 03/09/24 14:01 37.1 C 82 12 121/69 03/09/24 14:00 82 12 03/09/24 14:00 121/69 03/09/24 14:00 121/69 03/09/24 14:00 121/69 03/09/24 13:57 82 03/09/24 13:42 80 14 03/09/24 13:39 80 9 L 03/09/24 13:30 93/48 L 03/09/24 13:30 93/48 L 03/09/24 13:24 81 24 03/09/24 13:18 81 22 03/09/24 13:15 90/58 L 03/09/24 13:10 78 03/09/24 13:06 78 13 03/09/24 13:00 100/52 L 03/09/24 12:54 81 13 03/09/24 12:45 112/61 03/09/24 12:36 86 27 H 03/09/24 12:30 88 30 H 03/09/24 09:30 77 16 183/91 H 03/09/24 08:00 75 03/09/24 04:07 36.9 C 63 17 150/77 H Pulse Ox O2 Del Method 03/09/24 14:33 97 03/09/24 14:21 97 Room Air 03/09/24 14:17 96 03/09/24 14:15 96 03/09/24 14:15 03/09/24 14:01 95 03/09/24 14:00 96 03/09/24 14:00 03/09/24 14:00 03/09/24 14:00 03/09/24 13:57 94 03/09/24 13:42 98 03/09/24 13:39 96 03/09/24 13:30 03/09/24 13:30 03/09/24 13:24 92 Room Air 03/09/24 13:18 03/09/24 13:15 93 Room Air 03/09/24 13:10 03/09/24 13:06 03/09/24 13:00 03/09/24 12:54 03/09/24 12:45 03/09/24 12:36 03/09/24 12:30 03/09/24 09:30 97 Room Air 03/09/24 08:00 03/09/24 04:07 96 Room Air Diagnostic Findings Chest X-Ray 03/05/24 13:36 XR chest 1V portable HISTORY: Chest pain, nonspecific COMPARISON: Chest 03/03/2024. FINDINGS: No pneumothorax. The heart is mildly enlarged. There are low lung volumes. Small bilateral pleural effusions and bibasilar densities have progressed. No evidence for pulmonary edema. No acute fractures. IMPRESSION: Interval development of small bilateral pleural effusions and bibasilar densities. This may represent atelectasis from the pleural effusions or a pneumonia. ACT 112: Negative or not required by law. Electronically signed by: Pierre Talley M.D. 03/05/2024 2:46 PM Abdomen/Pelvis CT 03/05/24 14:[address] WITH IV CONTRAST CT DOSE: HISTORY: hypotension, s/p appendectomy TECHNIQUE: Multiaxial CT images of the abdomen and pelvis were performed following the use of intravenous contrast. A dose lowering technique was utilized adhering to the principles of ALARA. COMPARISON STUDY: Abdomen and pelvis CT 03/01/2024. FINDINGS: The bilateral pleural effusions and bibasilar densities are better appreciated on the same day chest CTA. No pneumoperitoneum. No pneumatosis. No acute fractures identified. The heart is mildly enlarged. There is mild to moderate body wall edema noted. Heterogeneous opacification of the liver which may be due to the timing of contrast. There is associated periportal edema. No hepatic or splenic masses. There are few splenic calcifications, as. The adrenal glands unremarkable. Pancreas enhances normally. Moderate right and moderate left cortical renal atrophy. No hydronephrosis. Small amount of ascites seen within the abdomen primarily surrounding the liver and gallbladder. Edema within the malou hepatis and surrounding the pancreas is likely due to the patient's diffuse edematous state. Calcified plaque within the normal caliber abdominal aorta. No retroperitoneal or pelvic lymphadenopathy. Mild bladder wall thickening which could be due to underdistention. The uterus and ovaries are unremarkable. No bowel wall thickening or obstruction. Prior appendectomy. No loculated fluid collections to suggest an abscess. IMPRESSION: 1. The bilateral pleural effusions and bibasilar densities are better appreciated on the same day chest CTA. 2. Interval appendectomy. No loculated fluid collections to suggest an abscess. 3. Periportal edema, body wall edema, and a small amount of ascites consistent with a diffuse edematous state. 4. Pericholecystic fluid with periportal and peripancreatic edema is also noted. This is likely due to the patient's diffuse edematous state. Recommend correlation with LFTs/pancreatic enzymes for further evaluation. 5. Heterogeneous appearance to the liver which is likely due to the timing of contrast. 6. No bowel wall thickening or obstruction. 7. Mild bladder wall thickening which is likely due to underdistention. Recommend correlation with urinalysis to exclude a cystitis. 8. Additional findings as described above. ACT 112: Negative or not required by law. Electronically signed by: Pierre Talley M.D. 03/05/2024 3:47 PM Chest CTA 03/05/24 14:41 CT ANGIOGRAM OF THE CHEST CLINICAL HISTORY: Dyspnea. Hypotension. COMPARISON STUDY: Chest x-ray dated 03/05/2024. TECHNIQUE: Following the IV administration of 119 cc of Optiray 320, CT angiogram of the chest was performed from the upper abdomen to the thoracic inlet utilizing the pulmonary embolus protocol. Images are reviewed in the axial, sagittal, and coronal planes. 3-D MIPS images are created and assessed. IV contrast was administered without complication. A dose lowering technique was utilized adhering to the principles of ALARA. CT DOSE: 2262.85 mGy.cm FINDINGS: Thyroid: Imaged portions of the thyroid gland are normal in size and attenuation. Thoracic aorta: The thoracic aorta is normal in caliber and demonstrates 4- vessel there is arch anatomy. No dissection is seen. Pulmonary vasculature: The pulmonary trunk is normal in caliber. There are no filling defects identified in main, lobar, or segmental pulmonary branches to suggest pulmonary embolus. Heart: The heart is mildly enlarged noting a small pericardial effusion. The coronary arteries are densely calcified. Lungs and pleural spaces: There are moderate pleural effusions, right larger than left with dependent consolidation. The trachea and central airways are clear. Intralobular septal thickening suggests fluid overload/congestive change. Mediastinum: There is no mediastinal lymphadenopathy. Lisa: Clear. Axillae: There is no axillary lymphadenopathy. Upper abdomen: There is a small volume of perihepatic and perisplenic ascites. Skeletal structures: No lytic or blastic bony lesions are seen. Soft tissues: There is body wall edema. IMPRESSION: 1. There is no evidence of pulmonary embolus in the main, lobar, or segmental pulmonary arteries. 2. Mild cardiomegaly with evidence of fluid overload/congestive change. 3. Right larger than left pleural effusions with dependent consolidation. 4. Advanced coronary artery atherosclerosis. 5. Small volume upper abdominal ascites. 6. Additional findings as above. ACT 112: Negative or not required by law. Electronically signed by: Km Henry M.D. 03/05/2024 3:59 PM Chest X-Ray 03/06/24 10:53 XR chest 1V portable CLINICAL HISTORY: S/P Thoracentesis TECHNIQUE: Single frontal radiograph of the chest was obtained. Comparison: Comparison is made to chest radiograph 03/05/2024 FINDINGS: Exam is limited by underpenetration. The cardiomediastinal silhouette is normal. The lungs are clear. No evidence of pleural effusion or pneumothorax. IMPRESSION: Interval decrease in size of right pleural effusion without evidence of pneumothorax in this patient status post thoracentesis. ACT 112: Negative or not required by law. Electronically signed by: Live Medel M.D. 03/06/2024 11:36 AM Abdomen/Pelvis CT 03/09/24 11:53 CT SCAN OF THE ABDOMEN AND PELVIS WITHOUT IV CONTRAST CLINICAL HISTORY: Generalized abdominal pain. Reported history of recent surgery. COMPARISON STUDY: Abdominal CT dated 03/05/2024. TECHNIQUE: CT scan of the abdomen and pelvis is performed from the lung bases to the proximal femora. Images are reviewed in the axial, sagittal, and coronal planes. IV contrast was not administered for this examination as per the referring clinician. Note that the examination is significantly suboptimal without oral or IV contrast. A dose lowering technique was utilized adhering to the principles of ALARA. CT DOSE: 1366.67 mGy.cm FINDINGS: Lung bases: The heart is normal in size and without pericardial effusion. The coronary arteries are densely calcified. There are small to moderate pleural effusions with dependent consolidation. A small hiatal hernia is noted. Liver: The unenhanced liver is normal in size, contour, and attenuation. There is no intrahepatic biliary ductal dilatation. Gallbladder: Unremarkable. Spleen: Normal in size and attenuation. There are calcified splenic granulomas. Pancreas: The unenhanced pancreas is mildly atrophic and grossly unremarkable. Adrenal glands: Unremarkable. Kidneys: There is slight asymmetrical cortical atrophy of the left kidney as compared to the right. Retained cortical contrast is seen in both kidneys suggesting acute renal injury there is [id number] right hydroureteronephrosis. The right ureter is dilated to the level of a hematoma in the pelvis. No hydronephrosis is seen on the left. There is residual excreted contrast within the renal collecting systems, right greater than left which degrades assessment for renal calculi. There is no evidence of contour deforming renal mass lesion. Abdominal vasculature: The abdominal aorta is normal in course and caliber noting advanced atherosclerotic calcification. A right femoral approach central venous catheter is in place. Bowel: There is no bowel obstruction. The appendix is surgically absent. Peritoneum: There is a large complex/hyperdense fluid collection in the right pelvis seen on axial image #276. This measures approximately 9 x 10 x 8 cm. This is new from 03/05/2024 and given the density likely represents a hematoma. This causes mass effect on the adjacent bladder. No intraperitoneal free air is seen. There is a small volume of perihepatic and perisplenic ascites. Some of this is mildly complex and may represent blood products There is also a small volume of pelvic ascites. There is a fat-containing umbilical hernia. Lymphadenopathy: None. Pelvic viscera: The the bladder is mildly distended and contains excreted IV contrast. This is deviated to the left secondary to a presumed pelvic hematoma. The uterus and adnexa are normal as visualized. Skeletal structures: There is mild lumbar sacral spondylosis. No lytic or blastic lesions are seen. Soft tissues: The right rectus musculature appears asymmetrically thickened as compared to the left. This likely represents intramuscular hemorrhage, and there is intrapelvic extra peritoneal hemorrhage in the pelvis. There is body wall edema. IMPRESSION: 1. There is evidence of intramuscular hemorrhage within the right rectus abdominis, with intrapelvic extraperitoneal blood products seen in the pelvis. 2. There is an approximately 10 cm complex/hyperdense fluid collection in the right pelvis as detailed above. This is new from 03/05/2024 and this is also consistent with hematoma. It is unclear if this is intra or extraperitoneal. 3. The right pelvic hematoma causes mass effect on the bladder and the distal right ureter, resulting in mild to moderate right hydroureteronephrosis. 4. There is a small volume of abdominopelvic ascites. Some of this appears hyperdense and also likely represents blood products. 5. Retained cortical contrast is seen within both kidneys, right greater than left. This can be seen with acute renal injury. 6. Small to moderate pleural effusions with dependent consolidation. This is similar to previous. 7. Additional findings as detailed above. ACT 112: Negative or not required by law. Electronically signed by: Km Henry M.D. 03/09/2024 12:37 PM (2) Type 1 diabetes mellitus Diabetes mellitus complication status: with other specified complication Qualified Code(s): E10.69 - Type 1 diabetes mellitus with other specified complication (5) Acute renal failure Acute renal failure type: unspecified Qualified Code(s): N17.9 - Acute kidney failure, unspecified (6) Sepsis Acute renal failure type: unspecified Sepsis acute organ dysfunction status: with acute organ dysfunction Sepsis type: sepsis due to unspecified organism Severe sepsis acute organ dysfunction type: acute renal failure Severe sepsis shock status: with septic shock Qualified Code(s): A41.9 - Sepsis, unspecified organism; R65.21 - Severe sepsis with septic shock; N17.9 - Acute kidney failure, unspecified
--- NOTE | 2024-03-09 16:11 | Post Anesthesia Assessment ---
Date of Service March 09, 2024 Post Sedation Assessment Vital Signs Temp Pulse Pulse Resp BP BP BP 03/09/24 15:33 84 15 03/09/24 15:31 102/69 03/09/24 15:17 37 C 85 16 85/46 L 03/09/24 14:48 37 C 86 93/53 L 03/09/24 14:45 85 12 03/09/24 14:33 84 12 03/09/24 14:33 37 C 85 12 97/50 L 03/09/24 14:31 97/50 L 03/09/24 14:21 81 03/09/24 14:17 37.1 C 82 16 113/50 L 03/09/24 14:15 80 18 03/09/24 14:15 113/50 L 03/09/24 14:01 37.1 C 82 12 121/69 03/09/24 14:00 82 12 03/09/24 14:00 121/69 03/09/24 14:00 121/69 03/09/24 14:00 121/69 03/09/24 13:57 82 03/09/24 13:42 80 14 03/09/24 13:39 80 9 L 03/09/24 13:30 93/48 L 03/09/24 13:30 93/48 L 03/09/24 13:24 81 24 03/09/24 13:18 81 22 03/09/24 13:15 90/58 L 03/09/24 13:10 78 03/09/24 13:06 78 13 03/09/24 13:00 100/52 L 03/09/24 12:54 81 13 03/09/24 12:45 112/61 03/09/24 12:36 86 27 H 03/09/24 12:30 88 30 H 03/09/24 09:30 77 16 183/91 H 03/09/24 08:00 75 03/09/24 04:07 36.9 C 63 17 150/77 H 03/09/24 00:00 03/08/24 22:13 37.1 C 75 19 130/76 03/08/24 19:50 36.9 C 68 20 164/88 H Pulse Ox O2 Del Method 03/09/24 15:33 97 03/09/24 15:31 03/09/24 15:17 99 03/09/24 14:48 96 03/09/24 14:45 98 03/09/24 14:33 96 03/09/24 14:33 97 03/09/24 14:31 03/09/24 14:21 97 Room Air 03/09/24 14:17 96 03/09/24 14:15 96 03/09/24 14:15 03/09/24 14:01 95 03/09/24 14:00 96 03/09/24 14:00 03/09/24 14:00 03/09/24 14:00 03/09/24 13:57 94 03/09/24 13:42 98 03/09/24 13:39 96 03/09/24 13:30 03/09/24 13:30 03/09/24 13:24 92 Room Air 03/09/24 13:18 03/09/24 13:15 93 Room Air 03/09/24 13:10 03/09/24 13:06 03/09/24 13:00 03/09/24 12:54 03/09/24 12:45 03/09/24 12:36 03/09/24 12:30 03/09/24 09:30 97 Room Air 03/09/24 08:00 03/09/24 04:07 96 Room Air 03/09/24 00:00 Room Air 03/08/24 22:13 93 Room Air 03/08/24 19:50 99 Room Air Recovery Score Activity: Moves 4 extremities Respiration: Deep Breath/Cough Circulation: +/-20% PreAnes Value Consciousness: Arouseable (by name) Oxygen Saturation: > 92% On Room Air Post Anesthesia Score: 10 Discharge Sedation Level of Care: Fast Track Phase II Post Sedation Plan On clinical assessment, the patient appears to have tolerated the sedation without complications. Patient is recovering as anticipated. Patient will continue to be monitored by nursing and may be discharged when sedation discharge criteria are met per below protocol. Upon Completions of procedure up to 15 minutes continue every 5 minute vital signs and the P.A.R. score; then discharge to a Phase I or Fast Track to Phase II per the following guidelines: * Discharge Patient to appropriate Phase II area if PAR is 8 or greater or return to pre- procedure baseline. The post - procedure orders will be as directed. * If PAR score is less than 8 or not return to pre-procedure baseline then patient will follow Phase I monitoring till PAR is reached for Phase II. The Phase I may be done in procedure room or may call to secure a Phase I area. * If naloxone or flumazenil are used for reversal, hold in Phase I for continued monitoring from when last reversal dose was given for a minimum of 60 minutes or longer pending the nurse and/or physician discretion of patient condition before discharge to Phase II. Please call the Sedation Physician to re-evaluate and complete post-note for discharge to Phase II area. Do NOT discharge from procedure sedation or Phase 1 until post- sedation evaluation note is complete by procedure /sedation MD Sedation Discharge Instructions to be given to the patient at discharge to home. [facility] [place] Procedure Codes (Charges) Indication for Procedure Indication for procedure: NSTEMI Severe CAD Sedation/Anesthesia Procedure 1: Sedation/Anesthesia: 16468 Mod Sedation by a different physician ;Init15 Min Child Age 5&Up (Initial 15 minutes, start time 1054) Total Sedation Time (minutes): 58 Procedure 2: Sedation/Anesthesia: 27503 Mod Sedation by a different physician;Ea Additional 15 Minutes (Additional 43 minutes, end time 1152) Total Sedation Time (minutes): 58
[2024-03-09] MEDS ORDERED: GLUCAGON FOR INJ 1 MG VIAL SQ PRN (19:35)
[2024-03-09] MEDS ORDERED: DEXTROSE 50% 50 ML SYRINGE IV PRN (19:35)
[2024-03-09] MEDS ORDERED: GLUCOSE 40% GEL 15 GM TUBE PO PRN (19:35)
[2024-03-09] MEDS ORDERED: CARBOHYDRATES FOR HYPOGLYCEMIA PO PRN (19:35)
[2024-03-09] MEDS ORDERED: GLUCOSE 10 TAB/TUBE PO PRN (19:35)
--- NOTE | 2024-03-09 19:38 | Anesthesiology Consultation ---
Date of Service March 09, 2024 Assessment & Plan Chart Review Chart Review: Acceptable Risk for Surgery and Patient NOT seen in Pre Admission Testing Consults Requested none ASA ASA3E Proposed Anesthesia Anesthesia Type: MAC Risk / Benefits Reviewed With: PT / POA / Parent / Guardian, Accepts Plan and Informed Consent Obtained Additional Comments: 58 y/o F with hx of T1DM, HTN, HLD who presented 03/05 for appendectomy c/b hypotension, RO, NSTEMI now s/p stent to LAD (03/09), fluid overload and pulmonary edema, and pelvic bleed presenting for procedure as above. She is HDS on RA at this time. Was requring pressor support earlier today but weaned off after 2 pRBC. Plan MAC. ASA 3E History Surgery Operation Date: 03/08/24 13:00 Proposed Procedures p Transesophageal Echo w/Anesthesia possible R/L cath - Sukhwinder Hoff DO Operation Date: 03/09/24 09:30 Proposed Procedures p Cardiac Cath Procedure - Sukhwinder Hoff DO Operation Date: 03/09/24 19:30 Proposed Procedures p Cystoscopy, Bilateral Ureteral Stent Insertion - Slick Burch, Height/Weight Height: 5 ft Weight: 87.7 kg Allergies Allergy/AdvReac Type Severity Reaction Status Date / Time CHAPARRO Inhibitors Allergy Intermediate cough Verified 03/01/24 23:34 Penicillins Allergy Intermediate rash Verified 03/01/24 23:34 Medications Home Medications Medication Instructions Recorded Confirmed Last Taken albuterol sulfate 90 mcg/actuation 2 puff inhalation Q4 PRN .COUGH, 03/01/24 03/05/24 Unknown aerosol inhaler WHEEZING aspirin 81 mg tablet,delayed 81 mg PO QPM 03/01/24 03/05/24 Unknown release dextroamphetamine-amphetamine ER 20 mg PO DAILY PRN .. 03/01/24 03/05/24 Unknown 20 mg 24hr capsule,extend release fluoxetine 40 mg capsule 40 mg PO QPM 03/01/24 03/05/24 Unknown insulin aspart U-100 100 unit/mL 0 unit subcut DIRECTED 03/01/24 03/05/24 Unknown subcutaneous solution (Novolog U-100 Insulin aspart) losartan 50 mg tablet 50 mg PO QPM 03/01/24 03/05/24 Unknown lovastatin 40 mg tablet 40 mg PO QPM 03/01/24 03/05/24 Unknown multivitamin-ferrous 1 tab PO DAILY 03/01/24 03/05/24 Unknown fumarate-folic acid 18 mg-400 mcg tablet (Centrum Complete) ondansetron HCl 4 mg tablet 4 mg PO Q8 PRN Nausea 03/01/24 03/05/24 Unknown semaglutide 1 mg/dose (4 mg/3 mL) 1 mg subcut .QFRIDAY 03/01/24 03/05/24 02/24/24 subcutaneous pen injector (Ozempic) oxycodone-acetaminophen 5 mg-325 1 tab PO Q6H PRN pain #10 tabs 03/02/24 03/05/24 Unknown mg tablet cefdinir 300 mg capsule 300 mg PO BID 5 days #10 caps 03/03/24 03/05/24 Unknown Active Medications Generic Name Dose Route Start Last Admin Trade Name Freq PRN Reason Stop Dose Admin Acetaminophen 650 mg 03/06/24 08:56 03/07/24 13:52 Acetaminophen 325 Mg Tab PO 04/05/24 08:55 650 mg Q4H PRN Administration Pain or Fever Aspirin 81 mg 03/05/24 21:00 03/08/24 20:15 Aspirin 81 Mg Ectab PO 04/04/24 20:59 81 mg QPM KANDI Administration Docusate Sodium 100 mg 03/05/24 21:00 03/09/24 14:13 Docusate Sodium 100 Mg Cap PO 04/04/24 20:59 Not Given BID KANDI Fluoxetine HCl 40 mg 03/05/24 21:00 03/08/24 20:14 Fluoxetine Hcl 20 Mg Cap PO 04/04/24 20:59 40 mg QPM KANDI Administration Hydromorphone HCl 0.5 mg 03/05/24 20:21 03/09/24 17:10 Hydromorphone Inj 0.5 Mg/0.5 Ml Syr IV 03/19/24 20:20 0.5 mg Q6H PRN Administration Severe Pain (Scale 7, 8, 9,10) Hydromorphone HCl 0.5 mg 03/09/24 12:47 03/09/24 14:59 Hydromorphone Inj 0.5 Mg/0.5 Ml Syr IV 03/23/24 12:46 0.5 mg Q2HWA PRN Administration Pain Metronidazole 500 mg in 100 mls @ 100 mls/hr 03/05/24 20:00 03/09/24 17:12 Flagyl IV 03/12/24 15:59 Infused Q8H KANDI Infusion Protocol Cefepime HCl 2,000 mg/ Syringe 20 mls @ 5 mls/min 03/08/24 16:00 03/09/24 17:11 IV 03/12/24 16:03 5 mls/min Q12H KANDI Administration Protocol Norepinephrine Bitartrate 4 mg in 250 mls @ 0 mls/hr 03/09/24 14:45 03/09/24 19:00 Levophed/D5w IV 04/08/24 14:44 0 mcg/kg/min .Q0M KANDI 0 mls/hr Titration Protocol 0 MCG/KG/MIN Lovastatin 40 mg 03/05/24 21:00 03/08/24 20:14 Lovastatin 20 Mg Tab PO 04/04/24 20:59 40 mg QPM KANDI Administration Miscellaneous 0 each 03/05/24 21:00 03/09/24 17:12 Continuous Glucose Monitor N/A 04/04/24 20:59 Not Given ACHS KANDI Oxycodone/Acetaminophen 1 tab 03/05/24 20:23 03/08/24 20:14 Oxycodone/Acetaminophen 5mg/325mg Tab PO 03/19/24 18:30 1 tab Q6H PRN Administration Mild-Mod Pain (Scale 1-6) Pantoprazole Sodium 40 mg 03/07/24 12:30 03/09/24 14:12 Pantoprazole 40 Mg Tab PO 04/06/24 12:29 Not Given QAM KANDI Potassium Phosphate 2 tab 03/08/24 13:00 03/09/24 17:12 Pot Phosphate Monobasic W/ Sod Tab PO 04/07/24 12:59 Not Given QID KANDI Ticagrelor 90 mg 03/09/24 00:00 03/09/24 17:45 Ticagrelor 90 Mg Tab PO 04/08/24 00:00 Not Given BID KANDI NPO Date Last Intake of Fluids: 03/07/24 Time Last Intake of Fluids: 17:00 Date Last Intake of Solids: 03/07/24 Time Last Intake of Solids: 17:00 Past Medical History Medical History CKD (chronic kidney disease) stage 3, GFR 30-59 ml/min Cervical radiculopathy DM (diabetes mellitus), type 1 Exercise / Class Metabolic Activity II 4-5 Yardwork/Stairs/Walk up hill Past Surgical History Surgical History Hx of eye surgery History of female sterilization History of carpal tunnel surgery Past Anesthesia History No Hx of Anesthesia Complications and No Family Hx of Anesthesia Complications History of PONV No Hx of PONV and No Hx of Motion Sickness Social History Smoking Status: Never smoker Do You Dip or Chew Tobacco: No Hx Alcohol Use: Yes Alcohol type: wine alcohol intake frequency: a few times a week Hx Substance Use: No substance use type: does not use Review of Systems ROS Unobtainable: All systems reviewed & are unremarkable except as noted in HPI & below Physical Exam Vital Signs Last Vital Signs Temp 37 C 03/09/24 19:24 Pulse 77 03/09/24 19:24 Resp 20 03/09/24 19:24 BP 132/69 03/09/24 18:04 Pulse Ox 99 03/09/24 19:24 O2 Del Method Room Air 03/09/24 19:24 O2 Flow Rate 4 03/08/24 15:06 ENMT Mouth: no TMJ abnormality Thyromental Distance: > or= 3.5 Finger Breadths Mallampati Class: II Neck normal visual inspection and trachea midline; neck extension not limited Respiratory normal respiratory effort Auscultation: lungs clear to auscultation bilaterally Cardiovascular Rate/Rhythm: regular rate and regular rhythm Heart Sounds: no murmur Musculoskeletal Spine: normal cervical ROM Extremities: full ROM of extremities Neurologic moves all extremities Psychiatric Orientation: alert and oriented x 3 Testing Laboratory Results APTT 29 Seconds (21-31) 03/05/24 18:28 Urine Color Dark Yellow 03/05/24 Unknown Urine Appearance Cloudy (Clear) A 03/05/24 Unknown Urine pH 5.0 (4.5-7.5) 03/05/24 Unknown Ur Specific [place] 1.029 (1.000-1.030) 03/05/24 Unknown Urine Protein 1+ (Negative) H 03/05/24 Unknown Urine Glucose (UA) Negative (Negative) 03/05/24 Unknown Urine Ketones 1+ (Negative) H 03/05/24 Unknown Urine Nitrite Negative (Negative) 03/05/24 Unknown Ur Leukocyte Esterase 1+ (Negative) H 03/05/24 Unknown Urine WBC (Auto) 11-20 /hpf (0-5) H 03/05/24 Unknown Urine RBC (Auto) 0-2 /hpf (0-2) 03/05/24 Unknown U Hyaline Cast (Auto) >20 /lpf (0-2) H 03/05/24 Unknown U Epithel Cells (Auto) 6-10 /hpf (0-2) H 03/05/24 Unknown Urine Bacteria (Auto) None Seen (None Seen) 03/05/24 Unknown Blood Type O Positive 03/09/24 12:56 Antibody Screen NEGATIVE 03/09/24 12:56 03/05/24 17:29 Aerobic Blood Culture - Preliminary Blood No growth in Aerobic bottle after 48 hours. Anaerobic Blood Culture - Final 03/06/24 10:25 Gram Stain - Final Pleural Fluid Aerobic and Anaerobic Culture - Preliminary No growth to date. 03/05/24 Unknown Urine Culture - Final Urine,Clean Catch No growth - less than 1,000 colonies/mL. 03/09/24 03/09/24 17:41 12:42 POC Glucose 206 H 166 H Electrocardiogram Date: 03/06/24 Normal sinus rhythm Right bundle branch block T-wave inversion in multiple leads Abnormal ECG When compared with ECG of 06-Mar-2024 02:04, No significant change was found Confirmed by Eduardo Limon ([id number]) on 03/06/2024 2:32:55 PM Echocardiogram Date: 03/08/24 EF: 60-65 LV Function: normal Cardiac Catheterization Date: 03/09/24 Location: 2 stents to LAD
[2024-03-09] MEDS ORDERED: fentaNYL citrate PF 100 MCG/2 ML VIAL IV PRN (19:49)
[2024-03-09] MEDS ORDERED: ATROPINE SULFATE 0.1 MG/ML 10ML SYR IV PRN (19:49)
[2024-03-09] MEDS ORDERED: ONDANSETRON INJ 2 MG/ML 2 ML VIAL IV PRN (19:49)
[2024-03-09] MEDS ORDERED: ePHEDrine sulfate 50 MG/ML AMP IV PRN (19:49)
[2024-03-09] MEDS ORDERED: ONDANSETRON INJ 2 MG/ML 2 ML VIAL ONE (19:56)
[2024-03-09] MEDS ORDERED: MIDAZOLAM HCL 1 MG/ML 2ML VIAL ONE (19:56)
[2024-03-09] MEDS ORDERED: PROPOFOL IV EMULSION 10 MG/ML 20 ML VIAL IV ONE (19:56)
[2024-03-09] MEDS ORDERED: KETAMINE HCL 10MG/ML SYR ONE (19:56)
[2024-03-09] MEDS ORDERED: LIDOCAINE 2% 2 ML VIAL/AMP(20MG/ML) INFIL ONE (19:56)
[2024-03-09 19:58] LABS: Hematocrit (blood only) 29.7 % (37.0-47.0)
[2024-03-09 20:11] LABS: Albumin Globulin Ratio 1.5 (0.9-2); Albumin Level 3.1 gm/dl (3.4-5.0); Bilirubin,Total 0.5 mg/dl (0.2-1.0); Calcium 7.8 mg/dl (8.6-10.3); Creatinine Clr Calc Pharmacy 42.2 ml/min; Est GFR (African American) 46.2 ml/min; Est GFR (Non-African American) 39.9 ml/min; Globulin 2.1 gm/dl (2.5-4.0); Potassium 4.4 mmol/L (3.5-5.1); Total Protein 5.2 gm/dl (6.0-8.3)
[2024-03-09] MEDS: INSULIN ASPART PER UNIT CHARGE SC SCH ×2 (20:17→23:55)
[2024-03-09] MEDS ORDERED: fentaNYL citrate PF 100 MCG/2 ML VIAL ONE (20:22)
[2024-03-09] MEDS: DIATRIZOATE MEGLUMINE 30% 100ML VIAL INSTIL ONE (20:47)
[2024-03-09] MEDS ORDERED: PHENYLEPHRINE 100MCG/ML 10ML SYR IV ONE (20:49)
--- NOTE | 2024-03-09 21:26 | Operative Report ---
PG Post Operative Report Pre & Post Diagnosis Operation Date: 03/09/24 19:30 Pre-Op Diagnosis: Hydronephrosis Post-Op Diagnosis: Hydronephrosis I identified the patient and participated in the time-out.: Yes Procedure Operation Date: 03/09/24 19:30 Actual Procedures p Cystoscopy, Retrograde Pyelogram, Bilateral Ureteral Stent Insertion, and catheter insertion over wire. (Bilateral) - Slick Burch DO Surgeon Slick Burch, II, DO [employer] None Estimated Blood Loss 1 Findings Consistent with Post-Op Diagnosis Severe lateral compression of bladder with severe external compression of the right lateral wall and right anterior bladder. Shift of the bladder to the left with significant distension of the posterior wall. Multiple fissure along the right anterior bladder possibly due to external compression on the mucous. Stents placed in good position. Moderate obstruction of bladder neck secondary to large pelvic hematoma. Specimens None Drains 6 Fr x 24 cm stents bilateral 18 Fr saxman tip Anesthesia Type MAC Complications none Disposition Disposition: Recovery Room Indications Patient with large pelvic hematoma causing severe obstruction with likely external compression of the right ureter. Recent significant RO with ABLA today secondary to hematoma formation. Risks and benefits discussed at length. Description of Procedure Patient was consented and brought back to the operating room. Patient was placed under anesthesia in the supine position and moved to the left leg in stirrups in the lithotomy position. Due to the right leg having recent cardiac catheter and currently with sheath in place the right leg remained in the straight position with nursing assisting to keep the leg straight and on the bed for the entire procedure. Patient was prepped and draped in the regular sterile fashion. A time out was completed. A 30degree Cystoscope was placed into the bladder and the entire bladder was examined. Severe external compression with shifting of the bladder. Ecchymosis along the right lateral wall and right anterior bladder with significant mass effect. The bladder neck appeared obstructed secondary to the compression. Along the anterior bladder there were areas of fissure along the mucosa likely secondary to distension/pressure from the hematoma in the pelvis. The UO's were identified. The right UO appeared to have been shifted again likely secondary to the large external hematoma. The UO on the right was cannulated with a catheter. A retrograde pyelogram was completed. Hydroureter was noted starting approx at the mid ureter. Likely external compression of the right distal ureter. The renal pelvis had mild hydronephrosis. A wire was then placed and the catheter fully removed. The stent had to be positioned distally to sit within the bladder lumen. Attention was then taken to the left. The UO was cannulized with a dual lumen catheter and a retrograde pyelogram was completed. Mild hydronephrosis was noted. No obvious significant obstruction howevere due to the shift in the bladder and the hydronephrosis it was decided to place a stent on the left as well. The wire was placed and the catheter removed. With the wire in place, a 6 Fr Double J stent was placed. It was confirmed with fluoroscopy. With the stents in place, the bladder was emptied. The scope was used to assess positioning. Due to the hematoma it appeared urine may have issues draining secondary to obstruction at the bladder neck. A wire was placed in the bladder lumen. The scope was removed. A 18 Fr rader was then placed over the wire. It was confirmed in the bladder. Mild hematuria was noted. The patient was cleaned, aroused from anesthesia, and transferred to the pacu in stable condition having tolerated the procedure well with no complications. I was present and participated in all aspects of the procedure. The patient will be monitored in the ICU. Will likely require tight monitoring of H&H and may need further transfusion if issues. Will likely need repeat imaging at somepoint if remains stable. If unstable will need urgent imaging. Likely will need significant pain management. Catheter and stents can remain as needed to maintain urine drainage until stabilized. I attest to the content of the Intraoperative Record and any orders documented therein. Any exceptions are noted below.
[2024-03-09] MEDS: LANTUS PER UNIT CHARGE SQ ONE (21:34)
--- NOTE | 2024-03-09 22:34 | CT Scan Report ---
Exam(s): CT ABDOMEN + PELVIS Without Contrast EXAM: CT Abdomen and Pelvis Without Intravenous Contrast CLINICAL HISTORY: Reason for exam: intra-abdomianl hematoma eval, r/o expansion. TECHNIQUE: Axial computed tomography images of the abdomen and pelvis without intravenous contrast. CTDI is 28 mGy and DLP is 1429 mGy-cm. Automated exposure control was utilized for the study. A dose lowering technique was utilized adhering to the principles of ALARA. COMPARISON: CT of the abdomen and pelvis earlier FINDINGS: Lung bases: Bibasilar atelectasis with small effusions, right greater than left. ABDOMEN: Liver: Unremarkable. Gallbladder and bile ducts: Unremarkable. No calcified stones. No ductal dilation. Pancreas: Unremarkable. No ductal dilation. Spleen: Unremarkable. No splenomegaly. Adrenals: Unremarkable. No mass. Kidneys and ureters: Right double-J ureteral stent is stable. No obstructing stones. No hydronephrosis. Stomach and bowel: Unremarkable. No obstruction. No mucosal thickening. PELVIS: Appendix: No findings to suggest acute appendicitis. Bladder: The bladder is decompressed with a Patterson catheter. No stones. Reproductive: Unremarkable as visualized. ABDOMEN and PELVIS: Intraperitoneal space: Again seen is a complex hyperdense fluid collection in the right pelvis measuring approximately 9.7 x 13.7 cm, this is increased in size since prior exam with moderate pelvic mesenteric stranding. Trace abdominal fluid. No free air. Bones/joints: No acute fracture. No dislocation. Soft tissues: Reidentification of intramuscular hemorrhage within the right rectus abdominis muscle, relatively stable in size. Vasculature: Use atherosclerotic disease. No abdominal aortic aneurysm. Lymph nodes: Unremarkable. No enlarged lymph nodes. IMPRESSION: 1. Reidentification of intramuscular hemorrhage within the right rectus abdominis muscle, relatively stable in size. 2. Again seen is a complex hyperdense fluid collection in the right pelvis measuring approximately 9.7 x 13.7 cm, this is increased in size since prior exam with moderate pelvic mesenteric stranding. 3. Stable other findings as described above Electronically signed by: Genevieve Fontaine MD 03/09/24 22:33 PM
--- NOTE | 2024-03-09 22:58 | CT Scan Report ---
Exam(s): CT CHEST Without Contrast EXAM: CT Chest Without Intravenous Contrast CLINICAL HISTORY: Reason for exam: hypoxia. TECHNIQUE: Axial computed tomography images of the chest without intravenous contrast. CTDI is 24 mGy and DLP is 732 mGy-cm. Automated exposure control was utilized for the study. A dose lowering technique was utilized adhering to the principles of ALARA. COMPARISON: No relevant prior studies available. FINDINGS: Lungs: Perihilar and bibasilar atelectasis with moderate sized pleural effusions, right greater than left. No mass. Pleural space: See above. Heart: Unremarkable. No cardiomegaly. No significant pericardial effusion. No significant coronary artery calcifications. Bones/joints: Unremarkable. No acute fracture. No dislocation. Soft tissues: Unremarkable. Vasculature: Mild atherosclerotic disease of the coronary arteries. No thoracic aortic aneurysm. Lymph nodes: Unremarkable. No enlarged lymph nodes. IMPRESSION: Perihilar and bibasilar atelectasis with moderate sized pleural effusions, right greater than left. Electronically signed by: Genevieve Fontaine MD 03/09/24 22:57 PM
--- NOTE | 2024-03-09 23:58 | Anesthesiology Progress Note ---
Date of Service March 09, 2024 Anesthesia Post Procedure Vital Signs Vital Signs: Temp Pulse Pulse Pulse Resp BP BP 03/09/24 23:22 80 14 03/09/24 22:15 80 13 03/09/24 22:12 80 15 03/09/24 22:12 130/76 03/09/24 22:12 130/76 03/09/24 21:40 131/85 03/09/24 21:40 131/85 03/09/24 21:33 79 17 03/09/24 21:31 120/100 03/09/24 21:31 120/100 03/09/24 21:31 120/100 03/09/24 21:31 120/100 03/09/24 21:30 77 11 L 03/09/24 21:21 81 16 03/09/24 21:20 109/71 03/09/24 21:20 109/71 03/09/24 21:20 109/71 03/09/24 21:20 36.4 C L 82 18 03/09/24 21:10 139/84 03/09/24 21:10 36.5 C 75 18 03/09/24 21:03 03/09/24 21:00 93/72 L 03/09/24 20:58 107/76 03/09/24 20:58 36.4 C L 80 18 03/09/24 20:15 125/89 03/09/24 20:15 125/89 03/09/24 20:15 75 18 03/09/24 20:00 130/72 03/09/24 19:45 131/71 03/09/24 19:45 131/71 03/09/24 19:42 78 19 03/09/24 19:30 77 12 03/09/24 19:30 119/71 03/09/24 19:30 119/71 03/09/24 19:30 119/71 03/09/24 19:27 117/67 03/09/24 19:24 37 C 77 20 03/09/24 19:09 78 16 03/09/24 18:12 78 16 03/09/24 18:04 37 C 79 14 132/69 03/09/24 18:00 78 12 03/09/24 17:54 79 15 03/09/24 17:42 80 14 03/09/24 17:30 82 13 03/09/24 17:30 129/87 03/09/24 17:30 129/87 03/09/24 17:21 82 18 03/09/24 17:20 36.7 C 83 20 141/80 H 03/09/24 16:59 37 C 90 18 99/68 L 03/09/24 16:17 36.7 C 85 18 118/83 03/09/24 16:09 36.6 C 89 18 124/70 03/09/24 16:00 84 03/09/24 15:33 84 15 03/09/24 15:31 102/69 03/09/24 15:17 37 C 85 16 85/46 L 03/09/24 14:48 37 C 86 93/53 L 03/09/24 14:45 85 12 03/09/24 14:33 84 12 03/09/24 14:33 37 C 85 12 97/50 L 03/09/24 14:31 97/50 L 03/09/24 14:21 81 03/09/24 14:17 37.1 C 82 16 113/50 L 03/09/24 14:15 80 18 03/09/24 14:15 113/50 L 03/09/24 14:01 37.1 C 82 12 121/69 03/09/24 14:00 82 12 03/09/24 14:00 121/69 03/09/24 14:00 121/69 03/09/24 14:00 121/69 03/09/24 13:57 82 03/09/24 13:42 80 14 03/09/24 13:39 80 9 L 03/09/24 13:30 93/48 L 03/09/24 13:30 93/48 L 03/09/24 13:24 81 24 03/09/24 13:18 81 22 03/09/24 13:15 90/58 L 03/09/24 13:10 78 03/09/24 13:06 78 13 03/09/24 13:00 100/52 L 03/09/24 12:54 81 13 03/09/24 12:45 112/61 03/09/24 12:36 86 27 H 03/09/24 12:30 88 30 H 03/09/24 09:30 77 16 183/91 H 03/09/24 08:00 75 08/23/24 04:07 36.9 C 63 17 03/09/24 00:00 BP Pulse Ox O2 Del Method O2 Flow Rate 03/09/24 23:22 98 03/09/24 22:15 100 03/09/24 22:12 100 03/09/24 22:12 03/09/24 22:12 03/09/24 21:40 03/09/24 21:40 03/09/24 21:33 99 03/09/24 21:31 03/09/24 21:31 03/09/24 21:31 03/09/24 21:31 03/09/24 21:30 100 03/09/24 21:21 100 03/09/24 21:20 03/09/24 21:20 03/09/24 21:20 03/09/24 21:20 100 Oxymask 2 03/09/24 21:10 03/09/24 21:10 139/84 100 Oxymask 2 03/09/24 21:03 100 03/09/24 21:00 03/09/24 20:58 03/09/24 20:58 107/76 100 Oxymask 8 03/09/24 20:15 03/09/24 20:15 03/09/24 20:15 98 03/09/24 20:00 03/09/24 19:45 03/09/24 19:45 03/09/24 19:42 99 03/09/24 19:30 97 03/09/24 19:30 03/09/24 19:30 03/09/24 19:30 03/09/24 19:27 03/09/24 19:24 99 Room Air 03/09/24 19:09 99 03/09/24 18:12 99 03/09/24 18:04 100 03/09/24 18:00 97 03/09/24 17:54 99 03/09/24 17:42 99 03/09/24 17:30 99 03/09/24 17:30 03/09/24 17:30 03/09/24 17:21 99 Room Air 03/09/24 17:20 99 03/09/24 16:59 100 03/09/24 16:17 98 03/09/24 16:09 100 03/09/24 16:00 03/09/24 15:33 97 03/09/24 15:31 03/09/24 15:17 99 03/09/24 14:48 96 03/09/24 14:45 98 03/09/24 14:33 96 03/09/24 14:33 97 03/09/24 14:31 03/09/24 14:21 97 Room Air 03/09/24 14:17 96 03/09/24 14:15 96 03/09/24 14:15 03/09/24 14:01 95 03/09/24 14:00 96 03/09/24 14:00 03/09/24 14:00 03/09/24 14:00 03/09/24 13:57 94 03/09/24 13:42 98 03/09/24 13:39 96 03/09/24 13:30 03/09/24 13:30 03/09/24 13:24 92 Room Air 03/09/24 13:18 03/09/24 13:15 93 Room Air 03/09/24 13:10 03/09/24 13:06 03/09/24 13:00 03/09/24 12:54 03/09/24 12:45 03/09/24 12:36 03/09/24 12:30 03/09/24 09:30 97 Room Air 03/09/24 08:00 03/09/24 04:07 150/77 H 96 Room Air 03/09/24 00:00 Room Air Pain Intensity Bilateral Lower Abdomen: Pain Intensity: 9 Transfer of Care Handoff Completed per policy Notes Mental Status: alert / awake / arousable Patient Amnestic to Procedure: Yes Nausea / Vomiting: adequately controlled Pain: adequately controlled Airway Patency, RR, SpO2: stable & adequate BP & HR: stable & adequate Hydration State: stable & adequate Anesthetic Complications: no major complications apparent and Pt Satisfied with anesthetic care
[2024-03-10 04:51] LABS: Basophils # (auto) 0.03 K/uL (0.00-0.20); Basophils % (auto) 0.2 %; Eosinophils # (auto) 0.01 K/uL (0.00-0.50); Eosinophils % (auto) 0.1 %; Hemoglobin 9.1 g/dl (12.0-16.0); Immature Granulocytes % (auto) 2.1 %; Lymphocytes # (auto) 0.74 K/uL (1.20-3.40); Lymphocytes % (auto) 5.3 %; Mean Corpuscular Hemoglobin 30.8 pg (25.0-34.0); Mean Corpuscular Hgb Conc 33.7 g/dL (32.0-36.0); Mean Corpuscular Volume 91.5 fL (80.0-100.0); Mean Platelet Volume 9.8 fL (9.4-12.4); Monocytes # (auto) 0.79 K/uL (0.11-0.59); Monocytes % (auto) 5.6 %; Neutrophils # (auto) 12.16 K/uL (1.40-6.50); Neutrophils % (auto) 86.7 %; Nucleated RBC % (auto) 0.7 %; Platelet Count 258 K/uL (130-400); RDW Standard Deviation 45.8 fL (36.4-46.3); Red Blood Count 2.95 M/uL (4.20-5.40); White Blood Count 14.03 K/ul (4.8-10.8)
[2024-03-10 05:20] LABS: Albumin Globulin Ratio 1.4 (0.9-2); Albumin Level 3.1 gm/dl (3.4-5.0); BUN Creatinine Ratio 12.3 (10-20); Bilirubin,Total 0.5 mg/dl (0.2-1.0); Calcium 8.1 mg/dl (8.6-10.3); Creatinine Clr Calc Pharmacy 34.1 ml/min; Est GFR (African American) 35.8 ml/min; Est GFR (Non-African American) 30.9 ml/min; Globulin 2.2 gm/dl (2.5-4.0); Magnesium 2.2 mg/dl (1.7-2.4); Phosphorus 5.4 mg/dl (2.5-4.9); Potassium 4.3 mmol/L (3.5-5.1); Total Protein 5.3 gm/dl (6.0-8.3)
[2024-03-10 05:37] LABS: Ferritin 281.5 ng/ml (8-388)
[2024-03-10 05:42] LABS: Folate (Folic Acid),Ser orPlas > 22.30 ng/ml (>5.38)
[2024-03-10 05:43] LABS: Vitamin B12 > 1500 pg/ml (180-914)
[2024-03-10] MEDS: PLASMA-LYTE A 1,000 ML IV SCH (06:37)
--- NOTE | 2024-03-10 08:13 | Nephrology Progress Note ---
Date of Service March 10, 2024 Assessment & Plan (1) Acute renal failure: Plan: recurrent and worsening nonoliguric stage 1 RO on CKD3 in the setting of critical illness > NSTEMI, LAD stent x 2, pressor dependent hypotension, enlarging R pelvic bleed, emergent stent placement. RO likely from ischemia related to hypotension; no e/o contrast induced nephropathy from admission studies though LHC may have a role in recurrence. presented 03/05 w/ creatinine 3.4 (peak). baseline 1.4 w/ 50 mg daily albuminuria >> CKD 3 neither A nor B. 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 mild stable NAGMA from previously now an AGMA w/ normal lactate, not explained by RO > ? starvation > check UA -twice daily bmp at least >> 1300 BMP holding steady from AM. -continue strict I/O -continue plasmalyte at 125 ML hourly; low threshold to lower rate to 80 mL hourly if any worsening 02 needs; pls continue isotonic fluids at at least 80 mL hourly for at least 10 hrs after scan -for now stable but may rapidly become tenuous respiratory status / cpap now and preexisting BL pleural effusions on brilinta so no likely thoracentesis role for now (though defer to pulm) >> 1.8L positive past 32 hrs >>try to avoid diuretics until at least 12-24 hrs after IV dye w/ CT scan if feasible -she did not at least at last admission (?d/t emerging NSTEMI?) tolerate aggressive fluid resuscitation for hypotension -no indication for dialysis currently but worry she may worsen quickly/ cannot r/o need to discuss this admission > for now though continue supportive care and efforts to lower risk of ARNAV Care coordinated w/ [facility] Edu[facility] Conde. (2) Acute blood loss anemia: Plan: post procedure intraabdominal hemorrhage/ hematoma; hgb slowly down trending; s/p 2 units pRBC. f/u repeat CT scan; tertiary centers aware; no vascular service in house currently; transfuse prn; q4hhgb; on obligate dual antiplatelet tx. (3) Non-ST elevation [place] (NSTEMI): Plan: 03/06 > s/p LAD stent x 2 03/09 on dual AP therapy (4) Right ventricular dysfunction: Plan: plm HTN w/ PASP 40, enlarged R chambers; s/p RHC 03/09. as per cardiology /pulm. ? role for VAHE untreated as transiently worsened RV dysfunction cause early in the admission> poor tolerance of post op fluids and subsequent hypoxic respiratory failure Admission and Anticipated Discharge Date Admission Date: March 05, 2024 Subjective multiple events overnight > emergent R ureteral stent, enlarging R pelvic 10 > 14 cm complex hematoma. s/p 2 units pRBC; on norepi transiently late afternoon yesterday and sbp 80-90s from about 1770-1799 after having been high (SBP earlier 150-170s); had been on NS at 80 mL hourly ON; now on plasmalyte at 80 mL hourly > 125 ML hourly. on CPAP > 02NC. tertiary care transfer reviewed in depth x 2 but for now deferred. repeat CT w/ IV con planned. UOP up from 25 mL hourly overnight to 40 mL hourly 0600-noon today. severe pain and challenges controlling it d/t drops in ETC02; worse w/ deep inspiration. R abd pain. no sob. no chest pain. daughter bedside Review of Systems 2 Review of Systems: All systems reviewed & are unremarkable except as noted in Subjective Physical Exam 2 Constitutional: well developed (sitting in bed on 02NC), well nourished, + obese and cooperative; no acute distress Eyes: EOM intact bilaterally ENMT: Ears: no external ear abnormality Nose: no external nose abnormality Mouth: + dry oral mucous membranes Neck: no nuchal rigidity Respiratory: normal respiratory effort Auscultation: lungs clear to auscultation bilaterally and + diminished lung sounds (BL posterior bases 1/[address] ) Cardiovascular: RRR, no murmur, no edema Gastrointestinal (Abdomen): Inspection/Auscultation: + abdominal wall ecchymosis and + hypoactive bowel sounds; no abdominal edema P ercussion/Palpation: + abdomen tender (RLQ, epigastric) and abdomen soft; no ascites +peritoneal signs Musculoskeletal: Extremities: strength 5/5 throughout Skin: no rashes, warm and dry Neurologic: garza, fluent speech, no tremor Psychiatric: Orientation: alert and oriented x 3 Results & Data Vital Signs (Past 12 Hours) Vital Signs Temp Pulse Pulse Resp BP BP Pulse Ox 03/10/24 07:00 137/78 03/10/24 07:00 81 14 94 03/10/24 06:00 83 21 118/70 96 03/10/24 05:00 81 15 129/66 95 03/10/24 04:30 127/73 03/10/24 04:00 37.4 C 83 19 117/83 98 03/10/24 04:00 79 19 96 03/10/24 04:00 117/83 03/10/24 04:00 117/83 03/10/24 03:30 85 12 97 03/10/24 03:30 132/77 03/10/24 03:30 132/77 03/10/24 03:30 132/77 03/10/24 03:30 132/77 03/10/24 03:08 74 19 99 03/10/24 03:00 134/73 03/10/24 02:30 116/77 03/10/24 02:00 121/76 03/10/24 02:00 121/76 03/10/24 02:00 121/76 03/10/24 02:00 121/76 03/10/24 01:45 81 24 96 03/10/24 01:30 81 17 96 03/10/24 01:30 133/74 03/10/24 01:30 133/74 03/10/24 01:00 80 20 130/73 96 03/10/24 00:30 114/77 03/10/24 00:00 80 03/10/24 00:00 37.3 C 03/10/24 00:00 79 12 111/71 97 03/09/24 23:45 81 14 122/79 98 03/09/24 23:30 78 14 143/85 H 97 03/09/24 23:22 80 14 98 03/09/24 23:15 78 130/88 03/09/24 23:00 80 14 139/96 100 03/09/24 22:50 138/79 03/09/24 22:40 130/76 03/09/24 22:30 77 136/85 100 03/09/24 22:15 80 13 100 03/09/24 22:12 80 15 100 03/09/24 22:12 130/76 03/09/24 22:12 130/76 03/09/24 21:40 131/85 03/09/24 21:40 131/85 03/09/24 21:33 79 17 99 03/09/24 21:31 120/100 03/09/24 21:31 120/100 03/09/24 21:31 120/100 03/09/24 21:31 120/100 03/09/24 21:30 77 11 L 100 03/09/24 21:21 81 16 100 03/09/24 21:20 109/71 03/09/24 21:20 109/71 03/09/24 21:20 109/71 03/09/24 21:20 36.4 C L 82 18 100 03/09/24 21:15 78 16 120/100 100 03/09/24 21:10 139/84 03/09/24 21:10 36.5 C 75 18 139/84 100 03/09/24 21:03 100 03/09/24 21:00 80 16 93/72 L 100 03/09/24 21:00 93/72 L 03/09/24 20:58 80 16 107/76 100 03/09/24 20:58 107/76 03/09/24 20:58 36.4 C L 80 18 107/76 100 03/09/24 20:15 75 18 125/89 98 03/09/24 20:15 125/89 03/09/24 20:15 125/89 03/09/24 20:15 75 18 98 O2 Del Method O2 Flow Rate 03/10/24 07:00 03/10/24 07:00 03/10/24 06:00 Room Air 03/10/24 05:00 CPAP 03/10/24 04:30 03/10/24 04:00 CPAP 03/10/24 04:00 03/10/24 04:00 03/10/24 04:00 03/10/24 03:30 03/10/24 03:30 03/10/24 03:30 03/10/24 03:30 03/10/24 03:30 03/10/24 03:08 03/10/24 03:00 03/10/24 02:30 03/10/24 02:00 03/10/24 02:00 03/10/24 02:00 03/10/24 02:00 03/10/24 01:45 03/10/24 01:30 03/10/24 01:30 03/10/24 01:30 03/10/24 01:00 CPAP 03/10/24 00:30 03/10/24 00:00 03/10/24 00:00 03/10/24 00:00 CPAP 03/09/24 23:45 CPAP 03/09/24 23:30 CPAP 03/09/24 23:22 03/09/24 23:15 03/09/24 23:00 Oxymask 2 03/09/24 22:50 03/09/24 22:40 03/09/24 22:30 Oxymask 2 03/09/24 22:15 03/09/24 22:12 03/09/24 22:12 03/09/24 22:12 03/09/24 21:40 03/09/24 21:40 03/09/24 21:33 03/09/24 21:31 03/09/24 21:31 03/09/24 21:31 03/09/24 21:31 03/09/24 21:30 03/09/24 21:21 03/09/24 21:20 03/09/24 21:20 03/09/24 21:20 03/09/24 21:20 Oxymask 2 03/09/24 21:15 Oxymask 4 03/09/24 21:10 03/09/24 21:10 Oxymask 2 03/09/24 21:03 03/09/24 21:00 Oxymask 8 03/09/24 21:00 03/09/24 20:58 Oxymask 8 03/09/24 20:58 03/09/24 20:58 Oxymask 8 03/09/24 20:15 Room Air 03/09/24 20:15 03/09/24 20:15 03/09/24 20:15 Laboratory Results 03/10/24 04:37 03/10/24 04:[address] non con Perihilar and bibasilar atelectasis with moderate sized pleural effusions, right greater than left. CT a/p non con Liver: Unremarkable. Gallbladder and bile ducts: Unremarkable. No calcified stones. No ductal dilation. Pancreas: Unremarkable. No ductal dilation. Spleen: Unremarkable. No splenomegaly. Adrenals: Unremarkable. No mass. Kidneys and ureters: Right double-J ureteral stent is stable. No obstructing stones. No hydronephrosis. Stomach and bowel: Unremarkable. No obstruction. No mucosal thickening. PELVIS: Appendix: No findings to suggest acute appendicitis. Bladder: The bladder is decompressed with a Patterson catheter. No stones. Reproductive: Unremarkable as visualized. ABDOMEN and PELVIS: Intraperitoneal space: Again seen is a complex hyperdense fluid collection in the right pelvis measuring approximately 9.7 x 13.7 cm, this is increased in size since prior exam with moderate pelvic mesenteric stranding. Trace abdominal fluid. No free air. Bones/joints: No acute fracture. No dislocation. Soft tissues: Reidentification of intramuscular hemorrhage within the right rectus abdominis muscle, relatively stable in size. Vasculature: Use atherosclerotic disease. No abdominal aortic aneurysm. Lymph nodes: Unremarkable. No enlarged lymph nodes. IMPRESSION: 1. Reidentification of intramuscular hemorrhage within the right rectus abdominis muscle, relatively stable in size. 2. Again seen is a complex hyperdense fluid collection in the right pelvis measuring approximately 9.7 x 13.7 cm, this is increased in size since prior exam with moderate pelvic mesenteric stranding. 3. Stable other findings as described above (1) Acute renal failure Acute renal failure type: unspecified Qualified Code(s): N17.9 - Acute kidney failure, unspecified
[2024-03-10 08:59] LABS: Basophils # (auto) 0.03 K/uL (0.00-0.20); Basophils % (auto) 0.2 %; Eosinophils # (auto) 0.01 K/uL (0.00-0.50); Eosinophils % (auto) 0.1 %; Hematocrit (blood only) 24.3 % (37.0-47.0); Hemoglobin 8.4 g/dl (12.0-16.0); Immature Granulocytes # (auto) 0.26 K/uL (0.01-0.20); Immature Granulocytes % (auto) 1.7 %; Lymphocytes # (auto) 0.95 K/uL (1.20-3.40); Lymphocytes % (auto) 6.3 %; Mean Corpuscular Hemoglobin 31.6 pg (25.0-34.0); Mean Corpuscular Hgb Conc 34.6 g/dL (32.0-36.0); Mean Corpuscular Volume 91.4 fL (80.0-100.0); Mean Platelet Volume 10.1 fL (9.4-12.4); Monocytes # (auto) 1.16 K/uL (0.11-0.59); Monocytes % (auto) 7.6 %; Neutrophils # (auto) 12.79 K/uL (1.40-6.50); Neutrophils % (auto) 84.1 %; Nucleated RBC # (auto) 0.12 K/uL (0.00-0.12); Nucleated RBC % (auto) 0.8 %; Platelet Count 261 K/uL (130-400); RDW Coefficient of Variation 14.3 % (11.5-14.5); RDW Standard Deviation 46.2 fL (36.4-46.3); Red Blood Count 2.66 M/uL (4.20-5.40)
--- NOTE | 2024-03-10 09:06 | Cardiology Progress Note ---
Date of Service March 10, 2024 Assessment & Plan (1) Hematoma: (2) Acute blood loss anemia: (3) Hydronephrosis: (4) Non-ST elevation [place] (NSTEMI): (5) Status post insertion of drug-eluting stent into left anterior descending (LAD) artery: (6) Right ventricular dysfunction: (7) Acute renal failure: Plan 58-year-old female status post right and left heart catheterization with drug- eluting stent implantation to the mid left anterior descending artery 03/09/2024. Postprocedure patient suffered acute blood loss anemia, with CT evidence of intra muscular right rectus abdominis muscle and complex hyperdense fluid collection in the right pelvis. Hemoglobin stable overnight status post transfusion of 2 units packed red blood cells. Repeat H&H pending. Status post bilateral ureteral stent implantation due to hydronephrosis. Continue supportive care/observation in ICU. Monitor serial H&H. Repeat imaging with any change in clinical status or continued drop in hemoglobin. Transfuse to maintain serum hemoglobin greater than 8.0 given recent NSTEMI and stent implantation. Continue dual antiplatelet therapy secondary to drug- eluting stent implantation 03/09/2024. Discussed with critical care team. I spent a total of 50 minutes on the date of service in preparation, delivery, and documentation of the care provided to this patient, excluding any time spent in the performance of separately billed services. Admission and Anticipated Discharge Date Admission Date: March 05, 2024 Subjective 58-year-old female seen and examined at the bedside. Hemoglobin remained stable overnight. Norepinephrine discontinued last evening. Serum creatinine trending upward this morning. Continues to note significant lower abdominal discomfort. Denies chest pain or shortness of breath. Sinus rhythm on telemetry. Review of Systems Review of Systems: All systems reviewed & are unremarkable except as noted in Subjective Physical Exam Constitutional: well nourished; no acute distress ENMT: Mallampati Class: III Respiratory: normal respiratory effort; no respiratory distress, no labored breathing and no retractions Auscultation: + diminished lung sounds (Bases bilateral); no crackles, no rales, no rhonchi and no wheezes Cardiovascular: Rate/Rhythm: regular rate and regular rhythm Heart Sounds: normal S1, normal S2 and + murmur (1/6 mid systolic murmur heard at LSB) Vessels: femoral pulses present and radial pulses present; no JVD and no carotid bruit Extremities: + edema (Mild bilateral pedal ankle edema) Gastrointestinal (Abdomen): Inspection/Auscultation: + abdomen distended and normal bowel sounds Percussion/Palpation: + abdomen tender; no guarding and abdomen not rigid Neurologic: CN's II-XI intact bilaterally and moves all extremities; no focal motor deficits Results & Data Vital Signs (Past 12 Hours) Vital Signs Temp Pulse Pulse Resp BP BP Pulse Ox 03/10/24 08:23 03/10/24 08:09 83 14 95 03/10/24 08:00 79 14 95 03/10/24 08:00 133/75 03/10/24 08:00 81 03/10/24 08:00 36.8 C 03/10/24 07:00 137/78 03/10/24 07:00 81 14 94 03/10/24 06:00 83 21 118/70 96 03/10/24 05:00 81 15 129/66 95 03/10/24 04:30 127/73 03/10/24 04:00 37.4 C 83 19 117/83 98 03/10/24 04:00 79 19 96 03/10/24 04:00 117/83 03/10/24 04:00 117/83 03/10/24 03:30 85 12 97 03/10/24 03:30 132/77 03/10/24 03:30 132/77 03/10/24 03:30 132/77 03/10/24 03:30 132/77 03/10/24 03:08 74 19 99 03/10/24 03:00 134/73 03/10/24 02:30 116/77 03/10/24 02:00 121/76 03/10/24 02:00 121/76 03/10/24 02:00 121/76 03/10/24 02:00 121/76 03/10/24 01:45 81 24 96 03/10/24 01:30 81 17 96 03/10/24 01:30 133/74 03/10/24 01:30 133/74 03/10/24 01:00 80 20 130/73 96 03/10/24 00:30 114/77 03/10/24 00:00 80 03/10/24 00:00 37.3 C 03/10/24 00:00 79 12 111/71 97 03/09/24 23:45 81 14 122/79 98 03/09/24 23:30 78 14 143/85 H 97 03/09/24 23:22 80 14 98 03/09/24 23:15 78 130/88 03/09/24 23:00 80 14 139/96 100 03/09/24 22:50 138/79 03/09/24 22:40 130/76 03/09/24 22:30 77 136/85 100 03/09/24 22:15 80 13 100 03/09/24 22:12 80 15 100 03/09/24 22:12 130/76 03/09/24 22:12 130/76 03/09/24 21:40 131/85 03/09/24 21:40 131/85 03/09/24 21:33 79 17 99 03/09/24 21:31 120/100 03/09/24 21:31 120/100 03/09/24 21:31 120/100 03/09/24 21:31 120/100 03/09/24 21:30 77 11 L 100 03/09/24 21:21 81 16 100 03/09/24 21:20 109/71 03/09/24 21:20 109/71 03/09/24 21:20 109/71 03/09/24 21:20 36.4 C L 82 18 100 03/09/24 21:15 78 16 120/100 100 03/09/24 21:10 139/84 03/09/24 21:10 36.5 C 75 18 139/84 100 O2 Del Method O2 Flow Rate FiO2 03/10/24 08:23 CPAP 03/10/24 08:09 CPAP 0 03/10/24 08:00 21 03/10/24 08:00 03/10/24 08:00 03/10/24 08:00 03/10/24 07:00 03/10/24 07:00 03/10/24 06:00 Room Air 03/10/24 05:00 CPAP 03/10/24 04:30 03/10/24 04:00 CPAP 03/10/24 04:00 03/10/24 04:00 03/10/24 04:00 03/10/24 03:30 03/10/24 03:30 03/10/24 03:30 03/10/24 03:30 03/10/24 03:30 03/10/24 03:08 03/10/24 03:00 03/10/24 02:30 03/10/24 02:00 03/10/24 02:00 03/10/24 02:00 03/10/24 02:00 03/10/24 01:45 03/10/24 01:30 03/10/24 01:30 03/10/24 01:30 03/10/24 01:00 CPAP 03/10/24 00:30 03/10/24 00:00 03/10/24 00:00 03/10/24 00:00 CPAP 03/09/24 23:45 CPAP 03/09/24 23:30 CPAP 03/09/24 23:22 03/09/24 23:15 03/09/24 23:00 Oxymask 2 03/09/24 22:50 03/09/24 22:40 03/09/24 22:30 Oxymask 2 03/09/24 22:15 03/09/24 22:12 03/09/24 22:12 03/09/24 22:12 03/09/24 21:40 03/09/24 21:40 03/09/24 21:33 03/09/24 21:31 03/09/24 21:31 03/09/24 21:31 03/09/24 21:31 03/09/24 21:30 03/09/24 21:21 03/09/24 21:20 03/09/24 21:20 03/09/24 21:20 03/09/24 21:20 Oxymask 2 03/09/24 21:15 Oxymask 4 03/09/24 21:10 03/09/24 21:10 Oxymask 2 Laboratory Results Cardiac Enzymes 03/09/24 03/10/24 Range/Units 19:11 04:37 AST 44 H 65 H (13-39) U/L CBC 03/09/24 03/10/24 03/10/24 Range/Units 19:11 04:37 08:36 WBC 14.03 H 15.20 H (4.8-10.8) K/ul RBC 2.95 L 2.66 L (4.20-5.40) M/uL Hgb 10.0 L 9.1 L 8.4 L (12.0-16.0) g/dl Hct 29.7 L 27.0 L 24.3 L (37.0-47.0) % Plt Count 258 261 (130-400) K/uL Neut # (Auto) 12.16 H 12.79 H (1.40-6.50) K/uL Lymph # (Auto) 0.74 L 0.95 L (1.20-3.40) K/uL [place] # (Auto) 0.79 H 1.16 H (0.11-0.59) K/uL Eos # (Auto) 0.01 0.01 (0.00-0.50) K/uL Baso # (Auto) 0.03 0.03 (0.00-0.20) K/uL Comprehensive Metabolic Panel 03/09/24 03/10/24 Range/Units 19:11 04:37 Sodium 139 140 (136-145) mmol/L Potassium 4.4 D 4.3 (3.5-5.1) mmol/L Chloride 109 H 110 H (98-107) mmol/L Carbon Dioxide 16 L 17 L (21-32) mmol/L BUN 17 22 (6-23) mg/dl Creatinine 1.45 H D 1.79 H D (0.6-1.2) mg/dl Glucose 206 H (70-99(Fasting)) mg/dl Calcium 7.8 L 8.1 L (8.6-10.3) mg/dl AST 44 H 65 H (13-39) U/L ALT 30 32 (7-52) U/L Alkaline Phosphatase 57 57 (34-104) U/L Total Protein 5.2 L 5.3 L (6.0-8.3) gm/dl Albumin 3.1 L 3.1 L (3.4-5.0) gm/dl Intake and Output 03/09/24 03/10/24 03/10/24 22:59 06:59 14:59 Intake Total 982.982 / 1082.982 100 / 1082.982 0 / 0 Output Total 200 / 655 255 / 655 50 / 50 Balance 782.982 / 427.982 -155 / 427.982 -50 / -50 Intake: IV 362.982 / 462.982 100 / 462.982 Magnesium Sulfate / D5w 1 gm In 200 / 200 100 ml @ 50 mls/hr IV Q2H KANDI Rx#:[id number] Norepinephrine/D5w 4 mg In 250 62.982 / 62.982 ml @ 0 MCG/KG/MIN IV .Q0M KANDI Rx#:[id number] metroNIDAZOLE 500 mg In 100 ml 100 / 200 100 / 200 @ 100 mls/hr IV Q8H KANDI Rx#: [id number] Oral 0 / 0 0 / 0 Intake (Blood Product) Amt 620 / 620 Packed Cells, Leukoreduced 310 / 310 Unit [id number] Packed Cells, Leukoreduced 310 / 310 Unit [id number] Output: Urine Amount (Catheter) 200 / 655 255 / 655 50 / 50 Patterson/Indwelling 200 / 655 255 / 655 50 / 50 # Bowel Movements 0 / 0 Other: Other Intake Source NPO Weight 87.7 kg 81.3 kg Weight Measurement Method Built in [facility] (7) Acute renal failure Acute renal failure type: unspecified Qualified Code(s): N17.9 - Acute kidney failure, unspecified
[2024-03-10] MEDS ORDERED: NALOXONE HCL 0.4 MG/1 ML VIAL/CARP IV PRN (09:35)
[2024-03-10 10:12] LABS: Fibrinogen 316 mg/dl (184-400); INR 1.1 (0.9-1.1); Prothrombin Time 11.9 Seconds (9.0-12.0)
--- NOTE | 2024-03-10 10:14 | Critical Care Progress Note ---
Date of Service March 10, 2024 Assessment & Plan (1) CAD (coronary artery disease): (2) Pleural effusion: (3) Pulmonary hypertension: (4) Shock: (5) Type 1 diabetes mellitus: (6) Acute blood loss anemia: (7) Intra abdominal hemorrhage: Plan Reason Critically Ill: 58 YOF presents to the ICU with shock- multifactorial to include sepsis, cardiogenic, and possibly intravascular volume dehydration- noted to have significantly elevated troponin and ECG changes but without STEMI. To ICU to obtain ECHO for RWMA follow hemodynamics and support as it clinically presents itself. Her BP is improved since arrival to ICU Neuro - Patient with severe pain and mild encephalopathy due to pain and opiates. Will start the patient on a basal dose of Dilaudid and as needed boluses with a lockout. Discussed with pharmacy. Pain is from abdominal hematoma and ureteral stents. Cardiac - NSTEMI, HTN -- Coronary artery disease S/p 2 stents in the LAD on 03/09/2024 With dual antiplatelet therapy. Discussed with cardiology. --Shock Resolved at this time. -- Pulmonary hypertension Right heart cath without evidence of pulmonary hypertension. Respiratory -- Pleural effusion Bilateral S/p thoracentesis right-sided 03/06/2024, 1000 mL removed, transudative. Benign cells on pathology. --History of VAHE Currently remains on CPAP. GI - -- Severe abdominal pain Patient with large intra-abdominal hematoma. Will discussed with nephrology regarding obtaining a CT abdomen pelvis with contrast to evaluate for active extravasation. RENAL/LYTES - -- CKD Monitor BUNs/creatinine Avoid nephrotoxic medication. Monitor urine output. - UTI - See below ENDO - DMI with NovoLog insulin pump ICU hyperglycemia protocol HEME - -- Acute blood loss anemia Secondary to massive intra-abdominal hematoma. Will discuss with nephrology about CTA of the abdomen pelvis as noted above. If active bleeding is seen, will need transfer to tertiary center. Currently requiring dual antiplatelet therapy due to 2 drug-eluting stents placed in the LAD this admission. Check DIC labs including INR, fibrinogen and PTT. Trend hemoglobin every 4 hours. ID - -- UA was positive. No culture sent. Will send urine culture and Pro-Mitchel. If negative, will discontinue antibiotics. - MRSA swab negative --Prophylaxis VTE: SCDs. GI: Protonix Lines: Peripheral. Need to establish large-bore IVs. Diet: N.p.o. Discussed on multiple disciplinary rounds. 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 updated at bedside. CRITICAL CARE TIME I have personally spent 48 minutes of critical care time in the direct management of this patient. This is a life/limb threatening event. This includes time spent evaluating patient, direct bedside care, chart review, placing orders, interpretation of diagnostic studies, discussion with consultants, patient, and family members, as well as other required patient management act ivities. This time is exclusive of all separately billable procedures, and teaching time and separate from and in addition to any other critical care service time. Admission and Anticipated Discharge Date Admission Date: March 05, 2024 Subjective Patient seen and examined. She is alert, but complaining of significant abdominal pain. Remains moderately encephalopathic. Review of Systems Review of Systems: Unobtainable due to cognitive status Physical Exam Physical Exam: Constitutional: Grimacing secondary to pain HEENT: EOMI, PERRLA Respiratory system: Decreased air entry bilaterally, no wheeze, no rhonchi, positive crackles bilaterally more on the right side CVS: S1-S2 positive, no murmurs or gallops Abdomen: Soft, severe epigastric, suprapubic, right flank tenderness, no rebound, decreased bowel sounds Extremities: +2 pulses bilaterally radialis/ dorsalis pedis, no cyanosis, +1 pitting edema bilateral lower extremity Neuro: Awake alert oriented x3 Psych: Anxious mood and affect G/U: No Patterson Skin: no rashes, warm and dry Lymphatic: no cervical or axillary lymphadenopathy Results & Data Results & Data Vital Signs (Past 12 Hours) Vital Signs Temp Pulse Resp BP Pulse Ox O2 Del Method O2 Flow Rate 03/10/24 08:23 CPAP 03/10/24 08:09 83 14 95 CPAP 03/10/24 08:00 79 14 95 03/10/24 08:00 133/75 03/10/24 08:00 81 03/10/24 08:00 36.8 C 03/10/24 07:00 137/78 03/10/24 07:00 81 14 94 03/10/24 06:00 83 21 118/70 96 Room Air 03/10/24 05:00 81 15 129/66 95 CPAP 03/10/24 04:30 127/73 03/10/24 04:00 37.4 C 83 19 117/83 98 CPAP 03/10/24 04:00 79 19 96 03/10/24 04:00 117/83 03/10/24 04:00 117/83 03/10/24 03:30 85 12 97 03/10/24 03:30 132/77 03/10/24 03:30 132/77 03/10/24 03:30 132/77 03/10/24 03:30 132/77 03/10/24 03:08 74 19 99 03/10/24 03:00 134/73 03/10/24 02:30 116/77 03/10/24 02:00 121/76 03/10/24 02:00 121/76 03/10/24 02:00 121/76 03/10/24 02:00 121/76 03/10/24 01:45 81 24 96 03/10/24 01:30 81 17 96 03/10/24 01:30 133/74 03/10/24 01:30 133/74 03/10/24 01:00 80 20 130/73 96 CPAP 03/10/24 00:30 114/77 03/10/24 00:00 80 03/10/24 00:00 37.3 C 03/10/24 00:00 79 12 111/71 97 CPAP 03/09/24 23:45 81 14 122/79 98 CPAP 03/09/24 23:30 78 14 143/85 H 97 CPAP 03/09/24 23:22 80 14 98 03/09/24 23:15 78 130/88 03/09/24 23:00 80 14 139/96 100 Oxymask 2 03/09/24 22:50 138/79 03/09/24 22:40 130/76 03/09/24 22:30 77 136/85 100 Oxymask 2 03/09/24 22:15 80 13 100 03/09/24 22:12 80 15 100 03/09/24 22:12 130/76 03/09/24 22:12 130/76 FiO2 03/10/24 08:23 03/10/24 08:09 0 03/10/24 08:00 21 03/10/24 08:00 03/10/24 08:00 03/10/24 08:00 03/10/24 07:00 03/10/24 07:00 03/10/24 06:00 03/10/24 05:00 03/10/24 04:30 03/10/24 04:00 03/10/24 04:00 03/10/24 04:00 03/10/24 04:00 03/10/24 03:30 03/10/24 03:30 03/10/24 03:30 03/10/24 03:30 03/10/24 03:30 03/10/24 03:08 03/10/24 03:00 03/10/24 02:30 03/10/24 02:00 03/10/24 02:00 03/10/24 02:00 03/10/24 02:00 03/10/24 01:45 03/10/24 01:30 03/10/24 01:30 03/10/24 01:30 03/10/24 01:00 03/10/24 00:30 03/10/24 00:00 03/10/24 00:00 03/10/24 00:00 03/09/24 23:45 03/09/24 23:30 03/09/24 23:22 03/09/24 23:15 03/09/24 23:00 03/09/24 22:50 03/09/24 22:40 03/09/24 22:30 03/09/24 22:15 03/09/24 22:12 03/09/24 22:12 03/09/24 22:12 Coding Level of Care Code 12834 CRITICAL CARE 1ST 30-74M Diagnoses CAD (coronary artery disease) I25.10 Pleural effusion J90 Pulmonary hypertension I27.20 Shock R57.9 Type 1 diabetes mellitus E10.69 Diabetes mellitus complication status: with other specified complication Acute blood loss anemia D62 Intra abdominal hemorrhage R58 (5) Type 1 diabetes mellitus Diabetes mellitus complication status: with other specified complication Qualified Code(s): E10.69 - Type 1 diabetes mellitus with other specified complication
[2024-03-10 10:35] LABS: Partial Thromboplastin Time 27 Seconds (21-31)
[2024-03-10] MEDS: HYDROmorphone PCA 30 MG/30 ML IV PRN (10:36)
[2024-03-10] MEDS: PANTOprazole 40 MG in SYRINGE 0 ML IV SCH (10:48)
[2024-03-10] MEDS: SODIUM CHLORIDE 0.9% 1,000 ML IV SCH (10:48)
--- NOTE | 2024-03-10 10:48 | Fluoroscopy Report ---
INTRAOPERATIVE RADIOGRAPHS CLINICAL HISTORY: Bilateral ureteral stent placement. Fluoro time: 66 seconds Ka,r: 17.59 mGy FINDINGS: 4 spot fluoroscopic views of the abdomen are correlated with abdominal CT dated 03/09/2024. A bladder catheter is in place. The provided images show bilateral ureteral stents in appropriate pos ition. Contrast within the renal collecting systems shows right-sided hydronephrosis. IMPRESSION: Intraoperative images from bilateral ureteral stent placement. Electronically signed by: Km Henry M.D. 03/10/2024 10:47 AM
--- NOTE | 2024-03-10 11:14 | Urology Progress Note ---
Date of Service March 10, 2024 Assessment & Plan (1) Hydronephrosis: (2) Hematoma: (3) Acute blood loss anemia: (4) Shock: (5) Non-ST elevation UT (NSTEMI): (6) Intractable pain: (7) Status post insertion of drug-eluting stent into left anterior descending (LAD) artery: Plan 58-year-old critically ill female admitted to the ICU with shock- multifactorial to include sepsis, cardiogenic, and possibly intravascular volume dehydration. Patient s/p Appenedctomy with significant post op issues with readmission. Underwent cardiac catheterization yesterday for NSTEMI and is s/p LAD stent x 2. Became hypotensive with severe abdominal pain and a CT abdomen pelvis was done which showed 10 cm pelvic hematoma vs rectus sheath hematoma with significant shift to the left of bladder and right sided hydronephrosis. Underwent transfusion due to ABLA. Initially required pressors. Improved with volume and transfusion. Stabilized last evening and underwent bilateral stent placement and catheter placement due to obstruction from mass effect from large hematoma. POD1 s/p cystoscopy bilateral stent and catheter placement Cr increased likely multifactorial. Hemoglobin decrease also likely multifactorial with dilution from volume overload. No severe drop. Had discussed with patient family and the critical care team monitoring and management. Will likely benefit from [employer]ED [employer] with on demand medication to manage pain. With location of hematoma will likely have significant pain issues with movements and position change. Would likely benefit from control as opposed to management with PRN IV. Vitals stable this AM. Had resp issues overnight. Following closely with cards, nephro, critical care, and hospitalist. Monitor urine output. Can maintain catheter and stents as needed until improving. Did have significant degree of obstruction from mass effect on both the right ureter and bladder neck. Left ureter also appeared to have drainage issues likely also due to mass effect. Will monitor moving forward. Continue supportive care and monitoring. Continue with serial lab monitoring. Continue strict I&O monitoring. Patient still requiring critical management. Labs, vitals, and imaging were all reviewed and interpreted by myself. See above or in medical records for full report. Will monitor. Admission and Anticipated Discharge Date Admission Date: March 05, 2024 Subjective Postop from bilateral stent placement and catheter placement for obstruction issues secondary to obstruction from large pelvic hematoma. Patient has been tolerating stents. Significant pain in pelvis from hematoma. Has had some issues over night with resp. Likely volume and mobility. Had increase in Cr as well. Nephrology assessed. Has not had severe pain in the back and flank. Pain has largely localized in pelvis mainly on right likely due to hematoma. Has tolerated catheter. No new nausea or vomiting. Had tolerated anesthesia without major problems Review of Systems Review of Systems: All systems reviewed & are unremarkable except as noted in HPI & below Physical Exam Physical Exam: General: Alert in no acute distress. In critical care unit undergoing critical monitoring for significant events. HEENT: Normocephalic Atraumatic. Inspection normal. Cranial Nerves 2-12 Grossly intact. Normal inspection of face. Normal inspection of neck. Psychologic: Normal affect. Tired Respiratory: Nonlabored. No use of accessory muscles. No tachypnea or dyspnea. Cardiovascular: No tachycardia Skin: [place] and Dry. No rashes or visible lesions. Extremities/Lymphatics: Mod edema Abdomen: Soft upper abd, significant distension and tenderness along lower abd and suprapubic. Guarding on palpation of lower abd/pelvic region : Catheter in place with approx 80cc in bag since last measured. Light pink in color Results & Data Vital Signs (Past 12 Hours) Vital Signs Temp Pulse Resp BP Pulse Ox O2 Del Method FiO2 03/10/24 09:45 81 17 93 03/10/24 09:36 81 12 91 03/10/24 09:30 125/65 03/10/24 09:30 125/65 03/10/24 09:24 82 22 94 03/10/24 09:18 82 15 89 L 03/10/24 09:06 81 15 94 Room Air 03/10/24 09:00 140/65 03/10/24 08:23 CPAP 03/10/24 08:09 83 14 95 CPAP 0 03/10/24 08:00 79 14 95 21 03/10/24 08:00 133/75 03/10/24 08:00 81 03/10/24 08:00 36.8 C 03/10/24 07:00 137/78 03/10/24 07:00 81 14 94 03/10/24 06:00 83 21 118/70 96 Room Air 03/10/24 05:00 81 15 129/66 95 CPAP 03/10/24 04:30 127/73 03/10/24 04:00 37.4 C 83 19 117/83 98 CPAP 03/10/24 04:00 79 19 96 03/10/24 04:00 117/83 03/10/24 04:00 117/83 03/10/24 03:30 85 12 97 03/10/24 03:30 132/77 03/10/24 03:30 132/77 03/10/24 03:30 132/77 03/10/24 03:30 132/77 03/10/24 03:08 74 19 99 03/10/24 03:00 134/73 03/10/24 02:30 116/77 03/10/24 02:00 121/76 03/10/24 02:00 121/76 03/10/24 02:00 121/76 03/10/24 02:00 121/76 03/10/24 01:45 81 24 96 03/10/24 01:30 81 17 96 03/10/24 01:30 133/74 03/10/24 01:30 133/74 03/10/24 01:00 80 20 130/73 96 CPAP 03/10/24 00:30 114/77 03/10/24 00:00 80 03/10/24 00:00 37.3 C 03/10/24 00:00 79 12 111/71 97 CPAP 03/09/24 23:45 81 14 122/79 98 CPAP 03/09/24 23:30 78 14 143/85 H 97 CPAP 03/09/24 23:22 80 14 98 03/09/24 23:15 78 130/88 PG Care Time/CCT Total # of Minutes Spent Total Time Spent with Patient: Total time spent is greater than 50% in coordination of care (as documented) at patient's floor/unit and/or counseling patient: Coding Level of Care Code 42254 SUB INP/OBS CARE 3/50MIN Diagnoses Hydronephrosis N13.30 Hematoma T14.8XXA Acute blood loss anemia D62 Shock R57.9 Non-ST elevation UT (NSTEMI) I21.4 Intractable pain R52 Status post insertion of drug-eluting stent into left anterior descending (LAD) artery Z95.5
--- NOTE | 2024-03-10 12:00 | Hospitalist Progress Note ---
Date of Service March 10, 2024 Assessment & Plan (1) Shock: (2) Type 1 diabetes mellitus: (3) Non-ST elevation CA (NSTEMI): (4) Acute respiratory failure with hypoxia: (5) Acute renal failure: (6) Sepsis: Plan Pt is a 58yoF with PMHx significant for hypertension, hyperlipidemia, DM 1 on insulin pump, VAHE, CKD (baseline creatinine 1.3), ADHD, anxiety/mood disorder, recent appendectomy 3 days [employer] with post-op hypotension admitted with N/V and continued weakness at home since discharge. Found to be in septic shock, acute hypoxic respiratory failure, fluid overload with pleural effusions, acute kidney injury and complicated UTI on admission. Retroperitoneal Bleed Hematoma Acute Blood Loss anemia Mild to moderate right hydroureteronephrosis Hematoma and retroperitoneal bleed noted on CT abd/pelvis on 03/09 Pt's hgb dropped to 7.1 s/p transfusion 2U pRBCs, per Cardiology transfuse to keep hgb >8 in setting of recent NSTEMI s/p stent placement Urology consulted for possible stent placement in setting of hydro -s/p bilateral stent placement and catheter placement for obstruction issues secondary to obstruction from large pelvic hematoma Continue aspirin and Brilinta in setting of cardiac stent placement on 03/09 Continue to monitor H/H If pt's status worsening, consider CTA abd/pelvis and transfer to tertiary care -attempts made for transfer on 03/09 to [facility] [place], advised conservative management at this time. Continue to monitor in ICU Hypotension Likely in setting of bleeding/acute blood loss anemia above Requiring pressor support in the ICU Transfuse and wean pressors as tolerated, currently off pressors Improved Acute hypoxic respiratory Failure Pleural Effusions Had oxygen requirement as high as 10L on admission, currently on RA Chest xray noting pleural effusions, possible pneumonia. Procal elevated at 2.66 Chest CTA with no PE. Notes R>L pleural effusions Respiratory panel negative VBG reviewed Oxygen supplementation as needed, wean as tolerated Likely in setting of pleural effusions, possible pneumonia Pulmonology consulted, appreciate recommendations -s/p R sided thoracentesis on 03/06 -removal of 1000ml of serous fluid -transudate -pleural fluid pathology noting no tumor, only benign mesothelial cells, inflammatory cells and RBCs 03/10- overnight respiratory issues requiring oxymask and CPAP overnight, CT chest noting "moderate sized pleural effusions, right greater than left.". Appreciate further pulmonology recs CHF, acute Anasarca No prior diagnosis of CHF Chest CTA noting " Mild cardiomegaly with evidence of fluid overload/congestive change" Also R>L pleural effusions BNP reviewed 328 Echo on admission completed and reviewed -No left ventricular regional wall motion abnormalities with borderline hyperdynamic LV function on echocardiogram. -Indirect evidence (septal flattening) of right ventricular pressure and volume overload noted. Cardiology consulted, appreciate recs -TTE repeated (limited) and noted large intracardiac shunt with injection of agitated saline contrast. -Per cardiology, "In the setting of significant RV dilation and dysfunction as well as pulm hypertension this raises concern for atrial septal defect." -Recommending GENNARO for further evaluation -Advised holding diuretic therapy at this time, collaboration with nephrology. -Monitor I's and O's, daily weight, GFR, and electrolytes. -Untreated sleep apnea per pt's med hx -Consider addition of CPAP. CPAP ordered for qhs use GENNARO completed on 03/08, appreciate further cardiology recs -"Transesophageal echocardiogram performed today demonstrating preserved LV systolic function, moderate right ventricular enlargement with mildly reduced right ventricular function. There was no evidence of intracardiac shunt with injection of agitated saline contrast. I suspect patient's transient RV dysfun ction with acute decompensated heart failure secondary to untreated sleep apnea in the setting of volume overload. With improving renal function, plan right and left heart catheterization... for further assessment of NSTEMI and pulmonary hypertension. Outpatient sleep medicine referral." s/p cardiac cath on 03/09, with placement of 2 stents in LAD -continue with aspirin and Brillinta Continue to monitor NSTEMI Trop elevated at 2428--> 3150-->4529-->peak at 5633 EKG reviewed , no evidence of STEMI Received aspirin 324mg in the ED, continue with aspirin 81mg daily Continue IV Heparin Continue statin Cardiology consulted as above, appreciate recommendations -Elevated high-sensitivity troponin more likely reflective of demand ischemia rather than plaque rupture event -Advised cardiac catheterization deferred at this time due to acute renal insufficiency. -"Cardiac catheterization will be considered as hospital course progresses pending ongoing assessment of renal function and respiratory status." -Continue IV heparin, aspirin, and statin therapy. s/p cardiac cath on 03/09, with placement of 2 stents in LAD -continue with aspirin and Brillinta Continue to monitor on telemetry Acute on Chronic Kidney Disease Cr baseline of 1.3, was elevated at 1.82 3 days ago Cr 3.38-->3.12-->2.05-->1.39 Pt fluid overloaded in setting of CHF/anasarca Received 2L of fluids in the ED, will defer on further fluids at this time Continue to hold home losartan Avoid nephrotoxic agents Nephrology consulted, appreciate recs. Recommended/Stated the following: -"-daily bmp -neither IVF nor diuresis indicated currently -continue strict I/O; agree w/ cautiously starting diet; no fluid limit indicated -continue to avoid nephrotoxins -no indication at this time for acute dialysis though cannot rule out need this admission just yet" 03/10- worsening kidney status once more Severe sepsis/Septic Shock Complicated UTI Possible Pneumonia Pt with leukocytosis, tachypnea, hypotension WBC 12.08-->12.02-->9.31 Was being treated for a UTI at home with po cefdinir, urine cx grew pansensitive klebsiella Lactate wnl Procal elevated at 2.66 Chest imaging with possible pneumonia CT abd/pelvis with no abscess or acute infectious abnormality in post op setting UA with noted improvement from prior, repeat urine Cx with no significant growth. Postop incisions do not appear infected Blood Cx x1 set NGTD Holding home cefdinir Continue with IV Cefepime and Flagyl Continue to monitor BP Improving History of Appendicitis POD#6, s/p appendectomy on 03/02 with General surgery Post op hypotension that resolved with fluids, postop hypoxia and RO as above. CT abd/pelvis with no noted complications Stable DMI On Insulin pump, continue Ensure good glucose control Continue other home meds as directed. Trend labs CODE STATUS: Full code DVT prophylaxis: SCDs Diet: currently NPO Dispo: currently in ICU Admission and Anticipated Discharge Date Admission Date: March 05, 2024 Subjective Pt was seen in the ICU with and daughter at bedside. States pain still there. Had just requested pain meds. Respiratory issues overnight. Review of Systems Review of Systems: All systems reviewed & are unremarkable except as noted in Subjective Physical Exam Physical Exam: General: Alert, oriented. Psych: Appropriate mood and affect Neuro: writhing in pain HEENT: NC/AT CV: RRR Resp: Breath sounds clear bilaterally, no increased effort of breathing Abdomen:tender diffusely even with light touch Extremities: edema in lower extremities bilaterally. Results & Data Results & Data Vital Signs (Past 12 Hours) Vital Signs Temp Pulse Resp BP Pulse Ox O2 Del Method FiO2 03/10/24 11:03 77 16 94 03/10/24 11:01 120/64 03/10/24 09:45 81 17 93 03/10/24 09:36 81 12 91 03/10/24 09:30 125/65 03/10/24 09:30 125/65 03/10/24 09:24 82 22 94 03/10/24 09:18 82 15 89 L 03/10/24 09:06 81 15 94 Room Air 03/10/24 09:00 140/65 03/10/24 08:23 CPAP 03/10/24 08:09 83 14 95 CPAP 0 03/10/24 08:00 79 14 95 21 03/10/24 08:00 133/75 03/10/24 08:00 81 03/10/24 08:00 36.8 C 03/10/24 07:00 137/78 03/10/24 07:00 81 14 94 03/10/24 06:00 83 21 118/70 96 Room Air 03/10/24 05:00 81 15 129/66 95 CPAP 03/10/24 04:30 127/73 03/10/24 04:00 37.4 C 83 19 117/83 98 CPAP 03/10/24 04:00 79 19 96 03/10/24 04:00 117/83 03/10/24 04:00 117/83 03/10/24 03:30 85 12 97 03/10/24 03:30 132/77 03/10/24 03:30 132/77 03/10/24 03:30 132/77 03/10/24 03:30 132/77 03/10/24 03:08 74 19 99 03/10/24 03:00 134/73 03/10/24 02:30 116/77 03/10/24 02:00 121/76 03/10/24 02:00 121/76 03/10/24 02:00 121/76 03/10/24 02:00 121/76 03/10/24 01:45 81 24 96 03/10/24 01:30 81 17 96 08/24/24 01:30 133/74 03/10/24 01:30 133/74 03/10/24 01:00 80 20 130/73 96 CPAP 03/10/24 00:30 114/77 (2) Type 1 diabetes mellitus Diabetes mellitus complication status: with other specified complication Qualified Code(s): E10.69 - Type 1 diabetes mellitus with other specified complication (5) Acute renal failure Acute renal failure type: unspecified Qualified Code(s): N17.9 - Acute kidney failure, unspecified (6) Sepsis Acute renal failure type: unspecified Sepsis acute organ dysfunction status: with acute organ dysfunction Sepsis type: sepsis due to unspecified organism Severe sepsis acute organ dysfunction type: acute renal failure Severe sepsis shock status: with septic shock Qualified Code(s): A41.9 - Sepsis, unspecified organism; R65.21 - Severe sepsis with septic shock; N17.9 - Acute kidney failure, unspecified
[2024-03-10 13:19] LABS: Base Excess VBG -5.2 mEq/L; HCO3 VBG 20 mmol/L; Oxygen Saturation VBG 61.1 %; PCO2 VBG 37 mmHg (38-50); PO2 VBG 35 mmHg; pH VBG 7.34 (7.36-7.41)
--- NOTE | 2024-03-10 13:30 | Surgery Consultation ---
Date of Consultation March 10, 2024 Assessment & Plan (1) Type 1 diabetes mellitus: (2) Non-ST elevation IL (NSTEMI): (3) Acute respiratory failure with hypoxia: (4) Acute renal failure: (5) Sepsis: (6) Shock: (7) Pleural effusion: (8) Acute blood loss anemia: (9) Intra abdominal hemorrhage: Medical conditions are being managed by the medical team There is no indication for surgical interventions Recommend continuing to trend H/H. Currently on Q4, recommend continuing until H/H shows more stability Continue to hold anticoagulation until H/H is stable. 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 as long as patient hemodynamics tolerate If H/H consistently trend down requiring repeat blood transfusions, the patient will need transfer to a tertiary care center with vascular IR capability for consideration of embolization outbound call center representative general surgery will follow up in the am History of Present Illness Reason for Consultation: Retroperitoneal hematoma Attending Physician: Marilin Crespo MD History of Present Illness Amanda is a 58F with a PMHx of hypertension, hyperlipidemia, DM 1 on insulin pump, VAHE, CKD (baseline creatinine 1.3), ADHD, anxiety/mood disorder, recent appendectomy by Dr. Fernandez of [facility] on 03/02/24 with post-op hypotension was discharged on 03/03/24 and presented to the ED on 03/05/24 with N/V and continued weakness at home since discharge. She was re-admitted with hypoxic respiratory failure requiring 10L supplemental O2, acute on chronic kidney injury, UTI and shock. During admission she was found to have an NSTEMI after which she was started on a Heparin drip and underwent femoral artery angiography for cardiac catheterization on 03/09/24 during which PCI with placement of a drug eluting stent was placed in the LAD. Patient reportedly received 2 stents. She develope d abdominal pain that initiated ordering a CT A/P by her primary medical team last night identifying a large complex/hyperdense 10cm fluid collection in the right pelvis. She was started on pressors at one point to maintain HD while awaiting blood transfusion. She was transfused 2U PRBCs yesterday and pressors have been weaned off. She now suffers from fluid overload, pleural effusions also noted on CT. Her most recent H/H was 8.1/24.3 late morning from Hgb 8.4 earlier this am, from 10.8 at admission on 03/05/24. She also developed leukocytosis yesterday to 14,000 increased to 15,000 today with persistently (+) UA. Coagulation studies performed this am are WNL. The pelvic hematoma noted on CT was large enough that the bladder was mildly distended and deviated to the left secondary to the presumed pelvic hematoma. Dr. Burch with urology was consulted and performed cystoscopy, retrograde pyelogram, b/l ureteral stent insertion and catheter insertion over wire. Dr. Burch also recommended a POLISHING WHEEL REPAIRER to help improve pain control which is touchy considering her sensitive respiratory status. Of note, she is now saturating in the mid 90's on RAReshma Patel remains in the ICU afebrile, HD stable and the weekend it architecture consultant general surgery team has been consulted for further recommendations. Upon seeing Amanda this am, she is more comfortable and not writhing in pain as previously reported, stating the POLISHING WHEEL REPAIRER has been helpful. In fact, she states she has little to no pain when she is sitting more in the upright position and not moving around as she is in the bed during my interview. Right now she denies SOB but admits it is painful in her abdomen when she takes a deep breath in. She is HD stable without any other major complaints at this time. Allergies Allergy/AdvReac Type Severity Reaction Status Date / Time CHAPARRO Inhibitors Allergy Intermediate cough Verified 03/01/24 23:34 Penicillins Allergy Intermediate rash Verified 03/01/24 23:34 Home Medications Medication Instructions Recorded Confirmed Type albuterol sulfate 90 mcg/actuation 2 puff inhalation Q4 PRN .COUGH, 03/01/24 03/05/24 History aerosol inhaler WHEEZING aspirin 81 mg tablet,delayed 81 mg PO QPM 03/01/24 03/05/24 History release dextroamphetamine-amphetamine ER 20 mg PO DAILY PRN .. 03/01/24 03/05/24 History 20 mg 24hr capsule,extend release fluoxetine 40 mg capsule 40 mg PO QPM 03/01/24 03/05/24 History insulin aspart U-100 100 unit/mL 0 unit subcut DIRECTED 03/01/24 03/05/24 History subcutaneous solution (Novolog U-100 Insulin aspart) losartan 50 mg tablet 50 mg PO QPM 03/01/24 03/05/24 History lovastatin 40 mg tablet 40 mg PO QPM 03/01/24 03/05/24 History multivitamin-ferrous 1 tab PO DAILY 03/01/24 03/05/24 History fumarate-folic acid 18 mg-400 mcg tablet (Centrum Complete) ondansetron HCl 4 mg tablet 4 mg PO Q8 PRN Nausea 03/01/24 03/05/24 History semaglutide 1 mg/dose (4 mg/3 mL) 1 mg subcut .QFRIDAY 03/01/24 03/05/24 History subcutaneous pen injector (Ozempic) oxycodone-acetaminophen 5 mg-325 1 tab PO Q6H PRN pain #10 tabs 03/02/24 03/05/24 Rx mg tablet cefdinir 300 mg capsule 300 mg PO BID 5 days #10 caps 03/03/24 03/05/24 Rx Patient History Medical History (Updated 03/10/24 @ 10:12 by Kofi Desai MD) Interstitial lung disease CKD (chronic kidney disease) stage 3, GFR 30-59 ml/min Cervical radiculopathy DM (diabetes mellitus), type 1 Surgical History Hx of eye surgery History of female sterilization History of carpal tunnel surgery Social History Smoking Status: Never smoker Second Hand Exposure: No; Do You Dip or Chew Tobacco: No; Hx Alcohol Use: Yes Alcohol type: wine Hx Substance Use: No Preferred Language: Zambian Communication Ability: Effective Weld Technician Required: No Beliefs That Will Affect Care: None Current Living Situation: Spouse Feels Safe at Home: Yes Assistive Devices: Other Review of Systems Constitutional: no fever, no chills, no sweats and no body aches Respiratory: + dyspnea and + pain on inspiration; no sputum production Cardiovascular: no chest pain, no palpitations, no lightheadedness and no syncope Gastrointestinal: + abdominal pain (feels less painful in the upright position); no belching, no nausea and no vomiting Physical Exam Constitutional: + ill appearing and + obese; not in dist ress and not diaphoretic Respiratory: no respiratory distress, no labored breathing, does not use accessory muscles and no cough Cardiovascular: Rate/Rhythm: regular rate; not tachycardic Extremities: + edema Gastrointestinal (Abdomen): Inspection/Auscultation: abdomen not distended and no abdominal wall ecchymosis Percussion/Palpation: + abdomen tender (significantly tender greatest in the lower quadrants) and + guarding (voluntary ); abdomen not rigid Laparoscopic incisions are sealed without evidence for infection or hematoma formation at the surgical sites Skin: tissue edema noted at the right groin Results & Data Vital Signs (Past 12 Hours) Vital Signs Temp Pulse Resp BP Pulse Ox O2 Del Method FiO2 03/10/24 13:00 114/67 03/10/24 13:00 84 18 98 03/10/24 12:00 80 16 94 03/10/24 12:00 121/55 L 03/10/24 11:03 77 16 94 03/10/24 11:01 120/64 03/10/24 09:45 81 17 93 03/10/24 09:36 81 12 91 03/10/24 09:30 125/65 03/10/24 09:30 125/65 03/10/24 09:24 82 22 94 03/10/24 09:18 82 15 89 L 03/10/24 09:06 81 15 94 Room Air 03/10/24 09:00 140/65 03/10/24 08:23 CPAP 03/10/24 08:09 83 14 95 CPAP 0 03/10/24 08:00 79 14 95 21 03/10/24 08:00 133/75 03/10/24 08:00 81 03/10/24 08:00 36.8 C 03/10/24 07:00 137/78 03/10/24 07:00 81 14 94 03/10/24 06:00 83 21 118/70 96 Room Air 03/10/24 05:00 81 15 129/66 95 CPAP 03/10/24 04:30 127/73 03/10/24 04:00 37.4 C 83 19 117/83 98 CPAP 03/10/24 04:00 79 19 96 03/10/24 04:00 117/83 03/10/24 04:00 117/83 03/10/24 03:30 85 12 97 03/10/24 03:30 132/77 03/10/24 03:30 132/77 03/10/24 03:30 132/77 03/10/24 03:30 132/77 03/10/24 03:08 74 19 99 03/10/24 03:00 134/73 03/10/24 02:30 116/77 03/10/24 02:00 121/76 03/10/24 02:00 121/76 03/10/24 02:00 121/76 03/10/24 02:00 121/76 03/10/24 01:45 81 24 96 03/10/24 01:30 81 17 96 03/10/24 01:30 133/74 03/10/24 01:30 133/74 PG Care Time/CCT Total # of Minutes Spent Total Time Spent with Patient: Total time spent is greater than 50% in coordination of care (as documented) at patient's floor/unit and/or counseling patient: [place] [address] IN/OBS CONSULT LVL 4,60M Patient Type New History Comprehensive Exam Detailed Medical Decision Making High Complexity Diagnoses Type 1 diabetes mellitus E10.69 Diabetes mellitus complication status: with other specified complication Non-ST elevation IL (NSTEMI) I21.4 Acute respiratory failure with hypoxia J96.01 Acute renal failure N17.9 Acute renal failure type: unspecified Sepsis A41.9; R65.21; N17.9 Acute renal failure type: unspecified Sepsis acute organ dysfunction status: with acute organ dysfunction Sepsis type: sepsis due to unspecified organism Severe sepsis acute organ dysfunction type: acute renal failure Severe sepsis shock status: with septic shock Shock R57.9 Pleural effusion J90 Acute blood loss anemia D62 Intra abdominal hemorrhage R58 (1) Type 1 diabetes mellitus Diabetes mellitus complication status: with other specified complication Qualified Code(s): E10.69 - Type 1 diabetes mellitus with other specified complication (4) Acute renal failure Acute renal failure type: unspecified Qualified Code(s): N17.9 - Acute kidney failure, unspecified (5) Sepsis Acute renal failure type: unspecified Sepsis acute organ dysfunction status: with acute organ dysfunction Sepsis type: sepsis due to unspecified organism Severe sepsis acute organ dysfunction type: acute renal failure Severe sepsis shock status: with septic shock Qualified Code(s): A41.9 - Sepsis, unspecified organism; R65.21 - Severe sepsis with septic shock; N17.9 - Acute kidney failure, unspecified
[2024-03-10 13:46] LABS: BUN Creatinine Ratio 12.4 (10-20); Calcium 7.4 mg/dl (8.6-10.3); Creatinine Clr Calc Pharmacy 33.1 ml/min; Est GFR (African American) 36.3 ml/min; Est GFR (Non-African American) 31.3 ml/min; Magnesium 2.3 mg/dl (1.7-2.4); Potassium 4.2 mmol/L (3.5-5.1)
--- NOTE | 2024-03-10 13:59 | Pharmacy Report ---
Pharmacy Glycemic Short Note 2 - Date of Service March 10, 2024 - Glycemic Short BSG Results (Last 24 hours): 03/09/24 03/09/24 03/09/24 17:41 19:11 20:11 Glucose POC Glucose 206 H 209 H Fasting Glucose 235 H 03/09/24 03/09/24 03/10/24 21:23 23:36 03:53 Glucose POC Glucose 208 H 202 H 198 H Fasting Glucose 03/10/24 03/10/24 03/10/24 04:37 07:51 12:04 Glucose 206 H POC Glucose 195 H 148 H Fasting Glucose 03/10/24 13:08 Glucose 152 H POC Glucose Fasting Glucose OUTPATIENT ANTIDIABETIC REGIMEN: * Novolog insulin Pump * HbA1c = 6.9% on 03/02/24 ASSESSMENT: * 58 y/o F admitted for shock, bilateral pleural effusions, peripheral edema. She has history of Type 1 diabetes, chronic kidney disease and interstitial lung disease. She also has an intra-abdominal hematoma and RO. Currently NPO. She was recently admitted for appendicitis and underwent surgery for this. * Patient's diabetes is managed with Novolog insulin pump at home. This is currently off due to high blood sugars last night. * Pharmacy consulted for glycemic management. Patient was given basal insulin based on stress of 1 last night. She is not on any steroids and NPO. BSGs trending downwards. Therefore, will continue with basal insulin stress of 1 dose again for tonight. * Novolog parameters ordered yesterday between and stress of 1 and 2 parameters and q4h checks. She received total of 3 units of bolus insulin yesterday. Goal range and correction factor tightened this morning. Pre-lunch BSG trended down to 148 mg/dl today. PLAN FOR INPATIENT GLYCEMIC CONTROL: * Basal insulin * Lantus 8 units SQ HS * Bolus insulin * NovoLog per scale q4h while NPO * Goal Range: Low 120 mg/dL - High 160 mg/dL * Correction Factor: 35 mg/dL/unit * Nutritional / Prandial insulin per carb ratio of 1 unit per 15 grams CHO consumed
[2024-03-10 15:26] LABS: Appearance Urine Cloudy (Clear); Bacteria Urine Automated None Seen (None Seen); Bilirubin Urine Negative (Negative); Blood Urine 3+ (Negative); Cast Urine Automated 0-2 /lpf (0-2); Color Urine Orange; Epithelial Cell Urine Auto 0-2 /hpf (0-2); Glucose Urine UA Trace (Negative); Ketones Urine 1+ (Negative); Leukocyte Esterase Urine 2+ (Negative); Nitrite Urine Negative (Negative); Protein Urine 3+ (Negative); RBC Urine Automated >20 /hpf (0-2); Specific Gravity Urine 1.031 (1.000-1.030); Urobilinogen Urine Negative (Negative); WBC Urine Automated >50 /hpf (0-5); pH Urine 5.5 (4.5-7.5)
[2024-03-10] MEDS: HYDROmorphone INJ 0.5 MG/0.5 ML SYR IV STA (18:48)
[2024-03-10] MEDS: LANTUS PER UNIT CHARGE SQ SCH (20:54)
[2024-03-10] MEDS: ONDANSETRON INJ 2 MG/ML 2 ML VIAL IV PRN (21:13)
[2024-03-11 01:45] LABS: Hematocrit (blood only) 22.7 % (37.0-47.0); Hemoglobin 7.5 g/dl (12.0-16.0)
[2024-03-11 07:14] LABS: Basophils # (auto) 0.02 K/uL (0.00-0.20); Basophils % (auto) 0.2 %; Eosinophils # (auto) 0.32 K/uL (0.00-0.50); Eosinophils % (auto) 2.5 %; Hematocrit (blood only) 22.2 % (37.0-47.0); Hemoglobin 7.6 g/dl (12.0-16.0); Immature Granulocytes % (auto) 1.5 %; Lymphocytes # (auto) 1.36 K/uL (1.20-3.40); Lymphocytes % (auto) 10.4 %; Mean Corpuscular Hemoglobin 31.5 pg (25.0-34.0); Mean Corpuscular Hgb Conc 34.2 g/dL (32.0-36.0); Mean Corpuscular Volume 92.1 fL (80.0-100.0); Monocytes # (auto) 1.22 K/uL (0.11-0.59); Monocytes % (auto) 9.4 %; Neutrophils # (auto) 9.91 K/uL (1.40-6.50); Nucleated RBC # (auto) 0.08 K/uL (0.00-0.12); Nucleated RBC % (auto) 0.6 %; Platelet Count 224 K/uL (130-400); RDW Coefficient of Variation 14.7 % (11.5-14.5); RDW Standard Deviation 45.8 fL (36.4-46.3); Red Blood Count 2.41 M/uL (4.20-5.40); White Blood Count 13.03 K/ul (4.8-10.8)
[2024-03-11 07:42] LABS: Calcium 7.9 mg/dl (8.6-10.3); Magnesium 2.2 mg/dl (1.7-2.4); Potassium 4.1 mmol/L (3.5-5.1)
[2024-03-11 07:48] LABS: BUN Creatinine Ratio 14.2 (10-20); Est GFR (African American) 40.4 ml/min; Est GFR (Non-African American) 34.9 ml/min; Phosphorus 3.4 mg/dl (2.5-4.9)
[2024-03-11 08:23] LABS: Acanthocytes 1+; Basophilic Stippling 1+; Macrocytosis Present; Polychromasia 1+
[2024-03-11] MEDS: HYDROmorphone INJ 0.5 MG/0.5 ML SYR IV STA (09:38)
--- NOTE | 2024-03-11 11:12 | Surgery Progress Note ---
Date of Service March 11, 2024 Assessment & Plan (1) Non-ST elevation GA (NSTEMI): (2) Acute blood loss anemia: (3) Intra abdominal hemorrhage: Plan: She has remained HD stable o/n on Brilinta and ASA for drug eluting stents. H/H relatively stable, afebrile and leukocytosis resolving. She has been downgraded from the ICU, awaiting a bed on the floor. There is no indication for surgical interventions Recommend continuing to trend H/H. 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 OOB and in the chair this am. She states her pain is becoming less. She denies N/V, is passing flatus. Physical Exam Constitutional: not in distress and not diaphoretic Respiratory: normal respiratory effort; no respiratory distress, no labored breathing and does not use accessory muscles on NC Results & Data Vital Signs (Past 12 Hours) Vital Signs Temp Pulse Resp BP Pulse Ox O2 Del Method O2 Flow Rate 03/11/24 10:03 78 15 121/64 91 03/11/24 09:00 71 21 132/66 96 03/11/24 08:00 78 13 119/63 93 03/11/24 08:00 Nasal Cannula 2 03/11/24 08:00 36.8 C 03/11/24 07:00 77 13 121/66 95 Nasal Cannula 2 03/11/24 06:00 81 20 120/61 97 Room Air 03/11/24 05:00 78 12 118/65 95 CPAP 03/11/24 04:00 116/69 03/11/24 04:00 37.2 C 79 17 116/69 95 CPAP 03/11/24 03:10 81 18 97 03/11/24 03:00 78 14 113/64 96 CPAP 03/11/24 03:00 77 14 113/64 93 CPAP 08/25/24 02:00 78 14 108/61 91 CPAP 03/11/24 01:00 79 18 119/66 94 CPAP 03/11/24 00:00 37.1 C 03/11/24 00:00 80 15 128/65 90 CPAP 03/11/24 00:00 79 FiO2 03/11/24 10:03 03/11/24 09:00 03/11/24 08:00 03/11/24 08:00 03/11/24 08:00 03/11/24 07:00 03/11/24 06:00 03/11/24 05:00 03/11/24 04:00 03/11/24 04:00 03/11/24 03:10 21 03/11/24 03:00 03/11/24 03:00 03/11/24 02:00 03/11/24 01:00 03/11/24 00:00 03/11/24 00:00 03/11/24 00:00 Results Complete Blood Count Results: RBC 2.41 M/uL (4.20-5.40) L 03/11/24 WBC 13.03 K/ul (4.8-10.8) H 03/11/24 Hgb 7.6 g/dl (12.0-16.0) L 03/11/24 Hct 22.2 % (37.0-47.0) L 03/11/24 Plt Count 224 K/uL (130-400) 03/11/24 PG Care Time/CCT Total # of Minutes Spent Total Time Spent with Patient: Total time spent is greater than 50% in coordination of care (as documented) at patient's floor/unit and/or counseling patient: Coding Level of Care Code 10418 SUB INP/OBS CARE 2/35MIN Diagnoses Non-ST elevation GA (NSTEMI) I21.4 Acute blood loss anemia D62 Intra abdominal hemorrhage R58
--- NOTE | 2024-03-11 11:55 | Urology Progress Note ---
Date of Service March 11, 2024 Assessment & Plan (1) Hydronephrosis: (2) Hematoma: (3) Acute blood loss anemia: (4) Shock: (5) Non-ST elevation MD (NSTEMI): (6) Intractable pain: (7) Status post insertion of drug-eluting stent into left anterior descending (LAD) artery: Plan 58-year-old female admitted to the ICU s/p Appenedctomy with significant post op issues with readmission. Underwent cardiac catheterization for NSTEMI and is s/p LAD stent x 2. Became hypotensive with severe abdominal pain and a CT abdomen pelvis was done which showed 10 cm pelvic hematoma vs rectus sheath hematoma with significant shift to the left of bladder and right sided hydronephrosis. Underwent transfusion due to ABLA. Initially required pressors. Improved with volume and transfusion. Stabilized and underwent bilateral stent placement and catheter placement due to obstruction from mass effect from large hematoma. POD2 s/p cystoscopy bilateral stent and catheter placement Cr increase monitored, likely multifactorial. Hemoglobin decrease also likely multifactorial with dilution from volume overload. Labwork monitoring. General Surgery was consulted. Had discussed with patient family and the critical care team monitoring and management. Utilizing [employer] with on demand medication to manage pain. With location of hematoma will likely have significant pain issues with movements and position change. Vitals stable. Following closely with cards, nephro, critical care, and hospitalist. Monitor urine output. Can maintain catheter and stents as needed until improving. Did have significant degree of obstruction from mass effect on both the right ureter and bladder neck. Left ureter also appeared to have drainage issues likely also due to mass effect. Will monitor moving forward. Continue supportive care and monitoring. Continue with serial lab monitoring. Continue strict I&O monitoring. Patient still requiring critical management. Labs, vitals, and imaging were all reviewed and interpreted by myself. See above or in medical records for full report. Will monitor. Admission and Anticipated Discharge Date Admission Date: March 05, 2024 Subjective Postop day 2 from bilateral stent placement and catheter placement for obstruction issues secondary to obstruction from large pelvic hematoma. Patient has been tolerating stents. Significant pain in pelvis from hematoma. Pain with mobility. Up in chair this am. Have been monitoring Cr. Nephrology following. Has not had severe pain in the back and flank. Pain has largely localized in pelvis mainly on right likely due to hematoma. Has tolerated catheter. No new nausea or vomiting. Had tolerated anesthesia without major problems Review of Systems Review of Systems: All systems reviewed & are unremarkable except as noted in HPI & below Physical Exam Physical Exam: General: Alert in no acute distress. In critical care unit undergoing critical monitoring for significant events. HEENT: Normocephalic Atraumatic. Inspection normal. Cranial Nerves 2-12 Grossly intact. Normal inspection of face. Normal inspection of neck. Psychologic: Normal affect. Tired Respiratory: Nonlabored. No use of accessory muscles. No tachypnea or dyspnea. Cardiovascular: No tachycardia Skin: Artesian and Dry. No rashes or visible lesions. Extremities/Lymphatics: Mod edema Abdomen: Soft upper abd, significant distension and tenderness along lower abd and suprapubic. Guarding on palpation of lower abd/pelvic region : Catheter Light pink in color Results & Data Vital Signs (Past 12 Hours) Vital Signs Temp Pulse Resp BP Pulse Ox O2 Del Method O2 Flow Rate 03/11/24 10:03 78 15 121/64 91 03/11/24 09:00 71 21 132/66 96 03/11/24 08:00 78 13 119/63 93 03/11/24 08:00 Nasal Cannula 2 03/11/24 08:00 36.8 C 03/11/24 07:00 77 13 121/66 95 Nasal Cannula 2 03/11/24 06:00 81 20 120/61 97 Room Air 03/11/24 05:00 78 12 118/65 95 CPAP 03/11/24 04:00 116/69 03/11/24 04:00 37.2 C 79 17 116/69 95 CPAP 03/11/24 03:10 81 18 97 03/11/24 03:00 78 14 113/64 96 CPAP 03/11/24 03:00 77 14 113/64 93 CPAP 03/11/24 02:00 78 14 108/61 91 CPAP 03/11/24 01:00 79 18 119/66 94 CPAP 03/11/24 00:00 37.1 C 03/11/24 00:00 80 15 128/65 90 CPAP 03/11/24 00:00 79 FiO2 03/11/24 10:03 03/11/24 09:00 03/11/24 08:00 03/11/24 08:00 03/11/24 08:00 03/11/24 07:00 03/11/24 06:00 03/11/24 05:00 03/11/24 04:00 03/11/24 04:00 03/11/24 03:10 21 03/11/24 03:00 03/11/24 03:00 03/11/24 02:00 03/11/24 01:00 03/11/24 00:00 03/11/24 00:00 03/11/24 00:00 PG Care Time/CCT Total # of Minutes Spent Total Time Spent with Patient: Total time spent is greater than 50% in coordination of care (as documented) at patient's floor/unit and/or counseling patient: Coding Level of Care Code 28693 SUB INP/OBS CARE 3/50MIN Diagnoses Hydronephrosis N13.30 Hematoma T14.8XXA Acute blood loss anemia D62 Shock R57.9 Non-ST elevation MD (NSTEMI) I21.4 Intractable pain R52 Status post insertion of drug-eluting stent into left anterior descending (LAD) artery Z95.5
[2024-03-11] MEDS ORDERED: Nursing to Pharmacy Communication SCH (12:30)
[2024-03-11] MEDS: INSULIN ASPART PER UNIT CHARGE SC SCH ×2 (12:42→17:22)
--- NOTE | 2024-03-11 13:08 | Hospitalist Progress Note ---
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 Found to be in septic shock, acute hypoxic respiratory failure, fluid overload with pleural effusions, acute kidney injury and complicated UTI on admission. Retroperitoneal Bleed Hematoma Acute Blood Loss anemia Mild to moderate right hydroureteronephrosis Hematoma and retroperitoneal bleed noted on CT abd/pelvis on 03/09 Pt's hgb dropped to 7.1 from 9.2 hours earlier s/p transfusion 2U pRBCs, per Cardiology transfuse to keep hgb >8 in setting of recent NSTEMI s/p stent placement Urology consulted for possible stent placement in setting of hydro -s/p bilateral stent placement and catheter placement for obstruction issues secondary to obstruction from large pelvic hematoma on 03/09 Continue aspirin and Brilinta in setting of cardiac stent placement on 03/09 Continue to monitor H/H q4h If pt's status worsening, consider CTA abd/pelvis and transfer to tertiary care -attempts [place] for [place] on 03/09 [place] [facility] [place] advised conservative management at this time. General surgery consulted, appreciate recs Continue to monitor in ICU HypotensionResolved Likely in setting of bleeding/acute blood loss anemia above Required pressor support in the ICU Transfused blood and weaned pressors as tolerated currently off pressors Hypotension currently resolved Acute hypoxic respiratory Failure Pleural Effusions Had oxygen requirement as high as 10L on admission, currently on RA Chest xray noting pleural effusions, possible pneumonia. Procal elevated at 2.66 Chest CTA with no PE. Notes R>L pleural effusions Respiratory panel negative VBG reviewed Oxygen supplementation as needed, wean as tolerated Likely in setting of pleural effusions, possible pneumonia Pulmonology consulted, appreciate recommendations -s/p R sided thoracentesis on 03/06 -removal of 1000ml of serous fluid -transudate -pleural fluid pathology noting no tumor, only benign mesothelial cells, inflammatory cells and RBCs 03/10- overnight respiratory issues requiring oxymask and CPAP overnight, CT chest noting "moderate sized pleural effusions, right greater than left.". Appreciate further pulmonology recs 03/11- stable, on RA CHF, acute Anasarca No prior diagnosis of CHF Chest CTA noting " Mild cardiomegaly with evidence of fluid overload/congestive change" Also R>L pleural effusions BNP reviewed 328 Echo on admission completed and reviewed -No left ventricular regional wall motion abnormalities with borderline hy perdynamic LV function on echocardiogram. -Indirect evidence (septal flattening) of right ventricular pressure and volume overload noted. Cardiology consulted, appreciate recs -TTE repeated (limited) and noted large intracardiac shunt with injection of agitated saline contrast. -Per cardiology, "In the setting of significant RV dilation and dysfunction as well as pulm hypertension this raises concern for atrial septal defect." -Recommending GENNARO for further evaluation -Advised holding diuretic therapy at this time, collaboration with nephrology. -Monitor I's and O's, daily weight, GFR, and electrolytes. -Untreated sleep apnea per pt's med hx -Consider addition of CPAP. CPAP ordered for qhs use GENNARO completed on 03/08, appreciate further cardiology recs -"Transesophageal echocardiogram performed today demonstrating preserved LV systolic function, moderate right ventricular enlargement with mildly reduced right ventricular function. There was no evidence of intracardiac shunt with injection of agitated saline contrast. I suspect patient's transient RV dysfunction with acute decompensated heart failure secondary to untreated sleep apnea in the setting of volume overload. With improving renal function, plan right and left heart catheterization... for further assessment of NSTEMI and pulmonary hypertension. Outpatient sleep medicine referral." s/p cardiac cath on 03/09, with placement of 2 stents in LAD -continue with aspirin and Brillinta Continue to monitor NSTEMI Trop elevated at 2428--> 3150-->4529-->peak at 5633 EKG reviewed , no evidence of STEMI Received aspirin 324mg in the ED, continue with aspirin 81mg daily Continue IV Heparin Continue statin Cardiology consulted as above, appreciate recommendations -Elevated high-sensitivity troponin more likely reflective of demand ischemia rather than plaque rupture event -Advised cardiac catheterization deferred at this time due to acute renal insufficiency. -"Cardiac catheterization will be considered as hospital course progresses pending ongoing assessment of renal function and respiratory status." -Continue IV heparin, aspirin, and statin therapy. s/p cardiac cath on 03/09, with placement of 2 stents in LAD -continue with aspirin and Brillinta Continue to monitor on telemetry Acute on Chronic Kidney Disease Cr baseline of 1.3, was elevated at 1.82 3 days ago Cr 3.38-->3.12-->2.05-->1.39 Pt fluid overloaded in setting of CHF/anasarca Received 2L of fluids in the ED, will defer on further fluids at this time Continue to hold home losartan Avoid nephrotoxic agents Nephrology consulted, appreciate recs. Recommended/Stated the following: -"-daily bmp -neither IVF nor diuresis indicated currently -continue strict I/O; agree w/ cautiously starting diet; no fluid limit indicated -continue to avoid nephrotoxins -no indication at this time for acute dialysis though cannot rule out need this admission just yet" 03/10- worsening kidney status once more, nephrology following 03/11-improving, appreciate nephrology recs Severe sepsis/Septic Shock Complicated UTI Possible Pneumonia Pt with leukocytosis, tachypnea, hypotension WBC 12.08 and downtrending Was being treated for a UTI at home with po cefdinir, urine cx grew pansensitive klebsiella Lactate wnl Procal elevated at 2.66 Chest imaging with possible pneumonia CT abd/pelvis with no abscess or acute infectious abnormality in post op setting UA with noted improvement from prior, repeat urine Cx with no significant growth. Postop incisions do not appear infected Blood Cx x1 set NGTD Holding home cefdinir Continue with IV Cefepime and Flagyl (day 01/24) Continue to monitor BP Improving History of Appendicitis s/p appendectomy on 03/02 with General surgery Post op hypotension that resolved with fluids, postop hypoxia and RO as above. CT abd/pelvis with no noted complications Stable DMI On Insulin pump, continue Ensure good glucose control Continue other home meds as directed. Trend labs CODE STATUS: Full code DVT prophylaxis: SCDs Diet: advancing diet as tolerated Dispo: downgraded to PCU Admission and Anticipated Discharge Date Admission Date: March 05, 2024 Subjective pt was seen while still down in the ICU. Was sitting in a chair at bedside. States pain is better controlled with APPLICATION DEVELOPMENT LIAISON pump. Asking about starting clears, some nausea Daughter at bedside Review of Systems Review of Systems: All systems reviewed & are unremarkable except as noted in Subjective Physical Exam Physical Exam: General: Alert, oriented. Psych: Appropriate mood and affect HEENT: NC/AT CV: RRR Resp: Breath sounds clear bilaterally, no increased effort of breathing Abdomen:tender diffusely Extremities: edema in lower extremities bilaterally. Results & Data Results & Data Vital Signs (Past 12 Hours) Vital Signs Temp Pulse Resp BP Pulse Ox O2 Del Method O2 Flow Rate 03/11/24 12:38 36.7 C 03/11/24 12:38 78 12 120/61 96 Room Air 03/11/24 10:03 78 15 121/64 91 03/11/24 09:00 71 21 132/66 96 03/11/24 08:00 78 03/11/24 08:00 78 13 119/63 93 03/11/24 08:00 Nasal Cannula 2 03/11/24 08:00 36.8 C 03/11/24 07:00 77 13 121/66 95 Nasal Cannula 2 03/11/24 06:00 81 20 120/61 97 Room Air 03/11/24 05:00 78 12 118/65 95 CPAP 03/11/24 04:00 116/69 03/11/24 04:00 37.2 C 79 17 116/69 95 CPAP 03/11/24 03:10 81 18 97 03/11/24 03:00 78 14 113/64 96 CPAP 03/11/24 03:00 77 14 113/64 93 CPAP 03/11/24 02:00 78 14 108/61 91 CPAP FiO2 03/11/24 12:38 03/11/24 12:38 03/11/24 10:03 03/11/24 09:00 03/11/24 08:00 03/11/24 08:00 03/11/24 08:00 03/11/24 08:00 03/11/24 07:00 03/11/24 06:00 03/11/24 05:00 03/11/24 04:00 03/11/24 04:00 03/11/24 03:10 21 03/11/24 03:00 03/11/24 03:00 03/11/24 02:00 (2) Type 1 diabetes mellitus Diabetes mellitus complication status: with other specified complication Qualified Code(s): E10.69 - Type 1 diabetes mellitus with other specified complication (5) Acute renal failure Acute renal failure type: unspecified Qualified Code(s): N17.9 - Acute kidney failure, unspecified (6) Sepsis Acute renal failure type: unspecified Sepsis acute organ dysfunction status: with acute organ dysfunction Sepsis type: sepsis due to unspecified organism Severe sepsis acute organ dysfunction type: acute renal failure Severe sepsis shock status: with septic shock Qualified Code(s): A41.9 - Sepsis, unspecified organism; R65.21 - Severe sepsis with septic shock; N17.9 - Acute kidney failure, unspecified
[2024-03-11 13:44] LABS: Albumin Level 2.9 gm/dl (3.4-5.0); Bilirubin Direct 0.1 mg/dl (0-0.2); Bilirubin,Total 0.5 mg/dl (0.2-1.0); Total Protein 4.9 gm/dl (6.0-8.3)
[2024-03-11] MEDS: ACETAMINOPHEN 1,000 MG/100 ML VIAL IV SCH (13:53)
--- NOTE | 2024-03-11 13:57 | Cardiology Progress Note ---
Date of Service March 11, 2024 Assessment & Plan (1) Hematoma: (2) Acute blood loss anemia: (3) Hydronephrosis: (4) Non-ST elevation [place] (NSTEMI): (5) Status post insertion of drug-eluting stent into left anterior descending (LAD) artery: (6) Right ventricular dysfunction: (7) Acute renal failure: Plan 58-year-old female status post right and left heart catheterization with drug- eluting stent implantation to the mid left anterior descending artery 03/09/2024. Postprocedure patient suffered acute blood loss anemia, with CT evidence of intramuscular right rectus abdominis muscle and complex hyperdense fluid collection in the right pelvis. Hemoglobin stable overnight. Abdominal discomfort improving today with aid of ROUTE DELIVERY SERVICE DRIVER pump. Recommend discontinuation of IV fluid due to third spacing/edema on exam. Consider addition of low-dose diuretic therapy 03/12/2024 pending review of a.m. labs. Continue dual antiplatelet therapy uninterrupted with recent drug-eluting stent implantation to the left anterior descending artery 03/09/2024. Continue supportive care/observation in ICU. Monitor serial H&H. Repeat imaging with any change in clinical status or continued drop in hemoglobin. Discussed with critical care team and nephrology. I spent a total of 50 minutes on the date of service in preparation, delivery, and documentation of the care provided to this patient, excluding any time spent in the performance of separately billed services. Admission and Anticipated Discharge Date Admission Date: March 05, 2024 Subjective 58-year-old female seen examined at the bedside. Feeling better today. Abdominal discomfort improved with Dilaudid ROUTE DELIVERY SERVICE DRIVER pump. Seated in bedside chair. Hemoglobin has stabilized. Creatinine trending down to 1.62. Edema noted. Review of Systems Review of Systems: All systems reviewed & are unremarkable except as noted in Subjective Physical Exam Constitutional: well nourished; no acute distress Respiratory: normal respiratory effort; no respiratory distress, no labored breathing and no retractions Auscultation: + diminished lung sounds (Bases bilateral); no crackles, no rales, no rhonchi and no wheezes Cardiovascular: Rate/Rhythm: regular rate and regular rhythm Heart Sounds: normal S1, normal S2 and + murmur (1/6 mid systolic murmur heard at LSB) Vessels: femoral pulses present and radial pulses present; no JVD and no carotid bruit Extremities: + edema (1+ upper and lower extremity edema.) Gastrointestinal (Abdomen): Inspection/Auscultation: + abdomen distended and normal bowel sounds Percussion/Palpation: + abdomen tender and abdomen soft; no guarding and abdomen not rigid Neurologic: CN's II-XI intact bilaterally and moves all extremities; no focal motor deficits Results & Data Vital Signs (Past 12 Hours) Vital Signs Temp Pulse Resp BP Pulse Ox O2 Del Method O2 Flow Rate 03/11/24 12:38 36.7 C 03/11/24 12:38 78 12 120/61 96 Room Air 03/11/24 10:03 78 15 121/64 91 03/11/24 09:00 71 21 132/66 96 03/11/24 08:00 78 03/11/24 08:00 78 13 119/63 93 03/11/24 08:00 Nasal Cannula 2 03/11/24 08:00 36.8 C 03/11/24 07:00 77 13 121/66 95 Nasal Cannula 2 03/11/24 06:00 81 20 120/61 97 Room Air 03/11/24 05:00 78 12 118/65 95 CPAP 03/11/24 04:00 116/69 03/11/24 04:00 37.2 C 79 17 116/69 95 CPAP 03/11/24 03:10 81 18 97 03/11/24 03:00 78 14 113/64 96 CPAP 03/11/24 03:00 77 14 113/64 93 CPAP 03/11/24 02:00 78 14 108/61 91 CPAP FiO2 03/11/24 12:38 03/11/24 12:38 03/11/24 10:03 03/11/24 09:00 03/11/24 08:00 03/11/24 08:00 03/11/24 08:00 03/11/24 08:00 03/11/24 07:00 03/11/24 06:00 03/11/24 05:00 03/11/24 04:00 03/11/24 04:00 03/11/24 03:10 21 03/11/24 03:00 03/11/24 03:00 03/11/24 02:00 Laboratory Results Cardiac Enzymes 03/11/24 Range/Units 13:04 AST 40 H (13-39) U/L CBC 03/10/24 03/10/24 03/11/24 Range/Units 16:25 19:50 00:22 WBC (4.8-10.8) K/ul RBC (4.20-5.40) M/uL Hgb 7.9 L 7.8 L 6.9 L* (12.0-16.0) g/dl Hct (37.0-47.0) % Plt Count (130-400) K/uL Neut # (Auto) (1.40-6.50) K/uL Lymph # (Auto) (1.20-3.40) K/uL [place] # (Auto) (0.11-0.59) K/uL Eos # (Auto) (0.00-0.50) K/uL Baso # (Auto) (0.00-0.20) K/uL 03/11/24 03/11/24 03/11/24 Range/Units 01:33 06:53 12:19 WBC 13.03 H (4.8-10.8) K/ul RBC 2.41 L (4.20-5.40) M/uL Hgb 7.5 L 7.6 L 7.7 L (12.0-16.0) g/dl Hct 22.7 L 22.2 L (37.0-47.0) % Plt Count 224 (130-400) K/uL Neut # (Auto) 9.91 H (1.40-6.50) K/uL Lymph # (Auto) 1.36 (1.20-3.40) K/uL [place] # (Auto) 1.22 H (0.11-0.59) K/uL Eos # (Auto) 0.32 (0.00-0.50) K/uL Baso # (Auto) 0.02 (0.00-0.20) K/uL Comprehensive Metabolic Panel 03/11/24 03/11/24 Range/Units 06:53 13:04 Sodium 142 (136-145) mmol/L Potassium 4.1 (3.5-5.1) mmol/L Chloride 113 H (98-107) mmol/L Carbon Dioxide 22 (21-32) mmol/L BUN 23 (6-23) mg/dl Creatinine 1.62 H (0.6-1.2) mg/dl Glucose 103 H (70-99(Fasting)) mg/dl Calcium 7.9 L (8.6-10.3) mg/dl Direct Bilirubin 0.1 (0-0.2) mg/dl AST 40 H (13-39) U/L ALT 27 (7-52) U/L Alkaline Phosphatase 51 (34-104) U/L Total Protein 4.9 L (6.0-8.3) gm/dl Albumin 2.9 L (3.4-5.0) gm/dl Intake and Output 03/10/24 03/11/24 03/11/24 22:59 06:59 14:59 Intake Total 100 / 5163.238 5730 / 8406.558 1975 / 1100 Output Total 415 / 1025 410 / 1025 125 / 125 Balance -315 / 941.667 690 / 941.667 975 / 975 Intake: IV 100 / 2410.327 8981 / 0299.641 7177 / 1100 Norepinephrine/D5w 4 mg In 250 0 / 0 ml @ 0 MCG/KG/MIN IV .Q0M KANDI Rx#:[id number] Plasma-Lyte A 1,000 ml @ 125 1000 / 3831.400 9573 / 1000 mls/hr IV .Q8H KANDI Rx#:[id number] metroNIDAZOLE 500 mg In 100 ml 100 / 300 100 / 300 100 / 100 @ 100 mls/hr IV Q8H KANDI Rx#: [id number] Oral 0 / 0 Output: Urine Amount (Catheter) 415 / 1025 410 / 1025 125 / 125 Patterson/Indwelling 415 / 1025 410 / 1025 125 / 125 # Bowel Movements 0 / 0 Other: Other Intake Source Sips Weight 84.6 kg Weight Measurement Method Built in [facility] (7) Acute renal failure Acute renal failure type: unspecified Qualified Code(s): N17.9 - Acute kidney failure, unspecified
[2024-03-11] MEDS: LIDOCAINE 5% 1 PATCH TD SCH (14:12)
--- NOTE | 2024-03-11 17:59 | Nephrology Progress Note ---
Date of Service March 11, 2024 Assessment & Plan (1) Acute renal failure: Plan: recurrent and worsening nonoliguric stage 1 RO on CKD3 in the setting of critical illness > NSTEMI, LAD stent x 2, pressor dependent hypotension, enlarging R pelvic bleed, emergent stent placement. RO likely from ischemia related to hypotension; no e/o contrast induced nephropathy from admission studies though LHC may have a role in recurrence. presented 03/05 w/ creatinine 3.4 (peak). baseline 1.4 w/ 50 mg daily albuminuria >> CKD 3 neither A nor B. 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 mild stable NAGMA from previously now an AGMA w/ normal lactate, not explained by RO > ? starvation > check UA -could probably go back to daily bmp instead of more frequent -continue strict I/O -agree w/ stopping IV fluid >> restart if she needs to have IV contrast study which has for now been tabled >>try to avoid diuretics until at least 12-24 hrs after IV dye w/ CT scan if feasible -she did not at least at last admission (?d/t emerging NSTEMI?) tolerate aggressive fluid resuscitation for hypotension -no indication for dialysis currently but worry she may worsen quickly/ cannot r/o need to discuss this admission > for now though continue supportive care and efforts to lower risk of ARNAV Care coordinated w/ Luis Eduardo Conde. (2) Acute blood loss anemia: Plan: post procedure intraabdominal hemorrhage/ hematoma; hgb slowly down trending; s/p 2 units pRBC. f/u repeat CT scan; tertiary centers aware; no vascular service in house currently; transfuse prn; q4hhgb; on obligate dual antiplatelet tx. (3) Non-ST elevation [place] (NSTEMI): Plan: 03/06 > s/p LAD stent x 2 03/09 on dual AP therapy (4) Right ventricular dysfunction: Plan: plm HTN w/ PASP 40, enlarged R chambers; s/p RHC 03/09. as per cardiology /pulm. ? role for VAHE untreated as transiently worsened RV dysfunction cause early in the admission> poor tolerance of post op fluids and subsequent hypoxic respiratory failure Admission and Anticipated Discharge Date Admission Date: March 05, 2024 Subjective seen on midafternoon rounds. up in chair w/ daughter at bedside; had 2 units pRBC ON. surgery aware of pt / following. taking small amounts of clears and passing gas. no sob Review of Systems 2 Review of Systems: All systems reviewed & are unremarkable except as noted in Subjective Physical Exam 2 Constitutional: well developed (sitting in recliner on 02NC), well nourished, + obese, cooperative and + lethargic; no acute distress Eyes: EOM intact bilaterally ENMT: Ears: no external ear abnormality Nose: no external nose abnormality Mouth: + dry oral mucous membranes Neck: no nuchal rigidity Respiratory: normal respiratory effort Auscultation: lungs clear to auscultation bilaterally and + diminished lung sounds Cardiovascular: Rate/Rhythm: regular rate and regular rhythm Extremities: + edema (trace-1+, shiny) Gastrointestinal (Abdomen): Inspection/Auscultation: + abdominal wall ecchymosis and + hypoactive bowel sounds; no abdominal edema P ercussion/Palpation: + abdomen tender and abdomen soft; no ascites Musculoskeletal: Extremities: strength 5/5 throughout Skin: no rashes, warm and dry Psychiatric: Orientation: alert and oriented x 3 Results & Data Vital Signs (Past 12 Hours) Vital Signs Temp Pulse Resp BP Pulse Ox O2 Del Method O2 Flow Rate 03/11/24 16:40 37.2 C 03/11/24 16:39 76 13 134/75 97 Room Air 03/11/24 16:00 78 03/11/24 12:38 36.7 C 03/11/24 12:38 78 12 120/61 96 Room Air 03/11/24 10:03 78 15 121/64 91 03/11/24 09:00 71 21 132/66 96 03/11/24 08:00 78 03/11/24 08:00 78 13 119/63 93 03/11/24 08:00 Nasal Cannula 2 03/11/24 08:00 36.8 C 03/11/24 07:00 77 13 121/66 95 Nasal Cannula 2 03/11/24 06:00 81 20 120/61 97 Room Air Laboratory Results 03/11/24 12:19 03/11/24 06:53 (1) Acute renal failure Acute renal failure type: unspecified Qualified Code(s): N17.9 - Acute kidney failure, unspecified
[2024-03-11 21:36] LABS: Hemoglobin 8.5 g/dl (12.0-16.0)
[2024-03-12 04:56] LABS: Basophils # (auto) 0.03 K/uL (0.00-0.20); Basophils % (auto) 0.3 %; Eosinophils # (auto) 0.45 K/uL (0.00-0.50); Eosinophils % (auto) 3.8 %; Hematocrit (blood only) 22.2 % (37.0-47.0); Hemoglobin 7.5 g/dl (12.0-16.0); Immature Granulocytes # (auto) 0.19 K/uL (0.01-0.20); Immature Granulocytes % (auto) 1.6 %; Lymphocytes # (auto) 1.16 K/uL (1.20-3.40); Lymphocytes % (auto) 9.7 %; Mean Corpuscular Hemoglobin 31.6 pg (25.0-34.0); Mean Corpuscular Hgb Conc 33.8 g/dL (32.0-36.0); Mean Corpuscular Volume 93.7 fL (80.0-100.0); Monocytes # (auto) 0.98 K/uL (0.11-0.59); Monocytes % (auto) 8.2 %; Neutrophils # (auto) 9.11 K/uL (1.40-6.50); Neutrophils % (auto) 76.4 %; Nucleated RBC # (auto) 0.05 K/uL (0.00-0.12); Nucleated RBC % (auto) 0.4 %; Platelet Count 257 K/uL (130-400); RDW Standard Deviation 46.2 fL (36.4-46.3); Red Blood Count 2.37 M/uL (4.20-5.40); White Blood Count 11.92 K/ul (4.8-10.8)
[2024-03-12 05:21] LABS: Polychromasia 1+
[2024-03-12 05:23] LABS: BUN Creatinine Ratio 14.3 (10-20); Calcium 7.8 mg/dl (8.6-10.3); Creatinine Clr Calc Pharmacy 40.8 ml/min; Est GFR (African American) 45.5 ml/min; Est GFR (Non-African American) 39.2 ml/min; Magnesium 2.1 mg/dl (1.7-2.4); Potassium 3.7 mmol/L (3.5-5.1)
[2024-03-12 08:35] LABS: Hematocrit (blood only) 24.8 % (37.0-47.0); Hemoglobin 8.2 g/dl (12.0-16.0)
--- NOTE | 2024-03-12 09:17 | Urology Progress Note ---
Date of Service March 12, 2024 Assessment & Plan (1) Hydronephrosis: (2) Hematoma: Plan 58-year-old female admitted to the ICU s/p Appendectomy with significant post op issues with readmission. Underwent cardiac catheterization for NSTEMI and is s/p LAD stent x 2. Became hypotensive with severe abdominal pain and a CT abdomen pelvis was done which showed 10 cm pelvic hematoma vs rectus sheath hematoma with significant shift to the left of bladder and right sided hydronep hrosis. Underwent transfusion due to ABLA. Initially required pressors. Improved with volume and transfusion. Stabilized and underwent bilateral stent placement and catheter placement due to obstruction from mass effect from large hematoma. POD#3 s/p cystoscopy bilateral stent and catheter placement Afebrile with stable vitals. Remains in ICU. Labs today show a wbc 11.92, hemoglobin 8.2, creatinine 1.47 (1.62 yesterday). Patterson intact and draining pink urine. Will plan to maintain ureteral stents and Patterson catheter for now until improving. Continue supportive care and monitoring. Continue to trend labs. Urology will follow along. Admission and Anticipated Discharge Date Admission Date: March 05, 2024 Subjective Pt seen at bedside in the ICU Awake, sitting up in chair on arrival No acute distress at bedside Tolerating stents Has pain with mobility, managing with CARROT BUNCHER pump Patterson draining pink urine No fevers Reports loose stools Review of Systems Constitutional: as per Subjective / HPI Genitourinary: as per Subjective / HPI Physical Exam Constitutional: no acute distress Respiratory: no respiratory distress and no labored breathing Neurologic: awake Psychiatric: Orientation: alert, oriented x 3 and cooperative Genitourinary: Patterson intact w/pink urine draining Results & Data Vital Signs (Past 12 Hours) Vital Signs Temp Pulse Resp BP Pulse Ox O2 Del Method FiO2 03/12/24 08:00 74 16 99 03/12/24 08:00 135/72 03/12/24 08:00 37.1 C 03/12/24 07:09 72 11 L 97 03/12/24 07:00 129/60 03/12/24 06:00 77 14 137/73 99 Room Air 03/12/24 05:00 74 16 122/66 96 Room Air 03/12/24 04:34 73 12 97 21 03/12/24 04:00 73 15 134/68 97 Room Air 03/12/24 03:00 73 18 134/71 98 CPAP 03/12/24 01:00 78 19 118/69 96 CPAP 03/12/24 00:15 79 20 98 21 03/12/24 00:00 83 20 133/64 99 Room Air 03/12/24 00:00 77 03/11/24 23:00 78 16 140/62 97 Room Air 03/11/24 22:00 79 18 124/58 L 100 Room Air PG Care Time/CCT Total # of Minutes Spent Total Time Spent with Patient: Total time spent is greater than 50% in coordination of care (as documented) at patient's floor/unit and/or counseling patient: Coding Level of Care Code 14303 SUB INP/OBS CARE 2/35MIN Diagnoses Hydronephrosis N13.30 Hematoma T14.8XXA
--- NOTE | 2024-03-12 10:25 | Pharmacy Report ---
Pharmacy Glycemic Short Note 2 - Date of Service March 12, 2024 - Glycemic Short BSG Results (Last 24 hours): 03/11/24 03/11/24 03/11/24 12:34 16:22 20:17 Glucose POC Glucose 147 H 194 H 158 H 03/12/24 03/12/24 04:27 07:29 Glucose 168 H POC Glucose 155 H OUTPATIENT ANTIDIABETIC REGIMEN: * Novolog Insulin Pump * Basal rate of 0.2 units/hr * HbA1c = 6.9% on 03/02/24 ASSESSMENT: 03/12: * Amanda received 10 units of insulin yesterday, 8 of which were basal. BSGs were: [id number] mg/dL. * Fasting was 155 mg/dL this AM. Patient ordered a clear liquid diet. She has not been having much PO intake thus far. Therefore, I am hesitant to resume patient's home insulin pump today. If PO intake improves tomorrow, may resume home pump. * BSGs have trended up throughout the day over the weekend. Therefore, will tighten correction factor slightly today. 03/10: * 58 y/o F admitted for shock, bilateral pleural effusions, peripheral edema. She has history of Type 1 diabetes, chronic kidney disease and interstitial lung disease. She also has an intra-abdominal hematoma and RO. Currently NPO. She was recently admitted for appendicitis and underwent surgery for this. * Patient's diabetes is managed with Novolog insulin pump at home. This is currently off due to high blood sugars last night. * Pharmacy consulted for glycemic management. Patient was given basal insulin based on stress of 1 last night. She is not on any steroids and NPO. BSGs trending downwards. Therefore, will continue with basal insulin stress of 1 dose again for tonight. * Novolog parameters ordered yesterday between and stress of 1 and 2 parameters and q4h checks. She received total of 3 units of bolus insulin yesterday. Goal range and correction factor tightened this morning. Pre-lunch BSG trended down to 148 mg/dl today. PLAN FOR INPATIENT GLYCEMIC CONTROL: * Basal insulin * Lantus 8 units SC HS * Bolus insulin * NovoLog per scale q4h while NPO * Goal Range: Low 120 mg/dL - High 160 mg/dL * Correction Factor: 30 mg/dL/unit * Nutritional / Prandial insulin per carb ratio of 1 unit per 15 grams CHO consumed
--- NOTE | 2024-03-12 10:44 | Cardiology Progress Note ---
Date of Service March 12, 2024 Assessment & Plan (1) Hematoma: (2) Acute blood loss anemia: (3) Hydronephrosis: (4) Non-ST elevation [place] (NSTEMI): (5) Status post insertion of drug-eluting stent into left anterior descending (LAD) artery: (6) Right ventricular dysfunction: (7) Acute renal failure: Plan 58-year-old female with history of DM-1 diagnosed at age 8, status post right and left heart catheterization with two drug-eluting stents placed in the mid left anterior descending artery 03/09/2024. Postprocedure patient suffered acute blood loss anemia, with CT evidence of intramuscular right rectus abdominis muscle and complex hyperdense fluid collection in the right pelvis. Hemoglobin stable overnight. Abdominal discomfort improving today with aid of INSULATION NOZZLEMAN pump. Patient on clear diet, s/p recent appendectomy, with noted watery diarrhea. * Continue ASA, Brilinta * Not on beta mitchell due to concerns of recent low BP and relatively low heart rates in the 60s 70s at baseline * Not on CHAPARRO inhibitor/ARB due to relatively low blood pressure during stay, is on losartan as an outpatient * Will cautiously start IV furosemide, 20 mg IV x 1 now, potassium chloride 20 mill colons p.o. x 1. Patient was receiving potassium phosphate. * Update fasting lipid panel. Continue prior to hospital treatment with lovastatin for now. * Holding pharmacologic DVT prophylaxis due to acute blood loss anemia. Admission and Anticipated Discharge Date Admission Date: March 05, 2024 Subjective Patient seen in cardiology follow-up. Sitting in the bedside chair during my assessment. She was able to use the bedside commode with assistance earlier today. Telemetry reveals sinus rhythm. Review of Systems Review of Systems: All systems reviewed & are unremarkable except as noted in HPI & below Physical Exam Constitutional: well nourished; no acute distress Respiratory: normal respiratory effort; no respiratory distress, no labored breathing and no retractions Auscultation: + diminished lung sounds (Bases bilateral); no crackles, no rales, no rhonchi and no wheezes Cardiovascular: Rate/Rhythm: regular rate and regular rhythm Heart Sounds: normal S1, normal S2 and + murmur (1/6 mid systolic murmur heard at LSB) Vessels: femoral pulses present and radial pulses present; no JVD and no carotid bruit Extremities: + edema (1+ upper and lower extremity edema.) Gastrointestinal (Abdomen): Inspection/Auscultation: + abdomen distended and normal bowel sounds Percussion/Palpation: + abdomen tender and abdomen soft; no guarding and abdomen not rigid Neurologic: CN's II-XI intact bilaterally and moves all extremities; no focal motor deficits Genitourinary: Patterson catheter in place draining blood-tinged urine. Results & Data Vital Signs (Past 12 Hours) Vital Signs Temp Pulse Resp BP Pulse Ox O2 Del Method FiO2 03/12/24 08:00 74 16 99 03/12/24 08:00 135/72 03/12/24 08:00 37.1 C 03/12/24 07:09 72 11 L 97 03/12/24 07:00 129/60 03/12/24 06:00 77 14 137/73 99 Room Air 03/12/24 05:00 74 16 122/66 96 Room Air 03/12/24 04:34 73 12 97 21 03/12/24 04:00 73 15 134/68 97 Room Air 03/12/24 03:00 73 18 134/71 98 CPAP 03/12/24 01:00 78 19 118/69 96 CPAP 03/12/24 00:15 79 20 98 21 03/12/24 00:00 83 20 133/64 99 Room Air 03/12/24 00:00 77 03/11/24 23:00 78 16 140/62 97 Room Air Laboratory Results Cardiac Enzymes 03/11/24 Range/Units 13:04 AST 40 H (13-39) U/L CBC 03/11/24 03/11/24 03/12/24 Range/Units 12:19 21:15 04:27 WBC 11.92 H (4.8-10.8) K/ul RBC 2.37 L (4.20-5.40) M/uL Hgb 7.7 L 8.5 L 7.5 L (12.0-16.0) g/dl Hct 25.0 L 22.2 L (37.0-47.0) % Plt Count 257 (130-400) K/uL Neut # (Auto) 9.11 H (1.40-6.50) K/uL Lymph # (Auto) 1.16 L (1.20-3.40) K/uL Mcdowell # (Auto) 0.98 H (0.11-0.59) K/uL Eos # (Auto) 0.45 (0.00-0.50) K/uL Baso # (Auto) 0.03 (0.00-0.20) K/uL 03/12/24 Range/Units 08:22 WBC (4.8-10.8) K/ul RBC (4.20-5.40) M/uL Hgb 8.2 L (12.0-16.0) g/dl Hct 24.8 L (37.0-47.0) % Plt Count (130-400) K/uL Neut # (Auto) (1.40-6.50) K/uL Lymph # (Auto) (1.20-3.40) K/uL Mcdowell # (Auto) (0.11-0.59) K/uL Eos # (Auto) (0.00-0.50) K/uL Baso # (Auto) (0.00-0.20) K/uL Comprehensive Metabolic Panel 03/11/24 03/12/24 Range/Units 13:04 04:27 Sodium 141 (136-145) mmol/L Potassium 3.7 (3.5-5.1) mmol/L Chloride 109 H (98-107) mmol/L Carbon Dioxide 22 (21-32) mmol/L BUN 21 (6-23) mg/dl Creatinine 1.47 H (0.6-1.2) mg/dl Glucose 168 H (70-99(Fasting)) mg/dl Calcium 7.8 L (8.6-10.3) mg/dl Direct Bilirubin 0.1 (0-0.2) mg/dl AST 40 H (13-39) U/L ALT 27 (7-52) U/L Alkaline Phosphatase 51 (34-104) U/L Total Protein 4.9 L (6.0-8.3) gm/dl Albumin 2.9 L (3.4-5.0) gm/dl Intake and Output 03/11/24 03/12/24 03/12/24 22:59 06:59 14:59 Intake Total 300 / 1800 200 / 1800 100 / 100 Output Total 625 / 1250 500 / 1250 Balance -325 / 550 -300 / 550 100 / 100 Intake: IV 100 / 1600 200 / 1600 100 / 100 Acetaminophen 1,000 mg In 100 100 / 300 100 / 300 ml @ 400 mls/hr IV Q8H [facility] Rx#: [id number] metroNIDAZOLE 500 mg In 100 ml 100 / 300 100 / 100 @ 100 mls/hr IV Q8H [facility] Rx#: [id number] Oral 200 / 200 Output: Urine Amount (Catheter) 625 / 1250 500 / 1250 Patterson/Indwelling 625 / 1250 500 / 1250 Other: Weight 87.4 kg 87.4 kg Weight Measurement Method Built in [facility] Patient Weight 03/13/24 06:59 Weight 87.4 kg (7) Acute renal failure Acute renal failure type: unspecified Qualified Code(s): N17.9 - Acute kidney failure, unspecified
[2024-03-12] MEDS: FUROSEMIDE INJ 20 MG/2 ML VIAL IV ONE (10:55)
[2024-03-12] MEDS: POTASSIUM CHLORIDE CRTAB 20 MEQ TABCR PO STA (10:56)
--- NOTE | 2024-03-12 11:26 | Surgery Progress Note ---
Date of Service March 12, 2024 Assessment & Plan (1) Non-ST elevation [place] (NSTEMI): (2) Acute blood loss anemia: (3) Intra abdominal hemorrhage: Plan: She has remained HD stable o/n on Brilinta and ASA for drug eluting stents. H/H relatively stable, afebrile and leukocytosis resolving. She has been downgraded from the ICU, awaiting a bed on the floor. There is no indication for surgical interventions Recommend continuing to trend H/H. Currently stable Continue limited activity until H/H has proved stable and [employer] as long as patient hemodynamics tolerate Patient may advance diet as tolerated If H/H consistently trend down requiring repeat blood transfusions, the patient will need transfer to a tertiary care center with vascular IR capability for consideration of embolization will continue to follow Admission and Anticipated Discharge Date Admission Date: March 05, 2024 Subjective doing well; resting comfortably in bed Physical Exam Constitutional: not in distress and not diaphoretic Gastrointestinal (Abdomen): Inspection/Auscultation: abdomen not distended and no abdominal wall ecchymosis Percussion/Palpation: + abdomen tender (mild in the lower quadrants); abdomen not rigid Results & Data Vital Signs (Past 12 Hours) Vital Signs Temp Pulse Resp BP Pulse Ox O2 Del Method FiO2 03/12/24 08:00 74 16 99 03/12/24 08:00 135/72 03/12/24 08:00 37.1 C 03/12/24 07:09 72 11 L 97 03/12/24 07:00 129/60 03/12/24 06:00 77 14 137/73 99 Room Air 03/12/24 05:00 74 16 122/66 96 Room Air 03/12/24 04:34 73 12 97 21 03/12/24 04:00 73 15 134/68 97 Room Air 03/12/24 03:00 73 18 134/71 98 CPAP 03/12/24 01:00 78 19 118/69 96 CPAP 03/12/24 00:15 79 20 98 21 03/12/24 00:00 83 20 133/64 99 Room Air 03/12/24 00:00 77
[2024-03-12 12:32] LABS: Hematocrit (blood only) 25.6 % (37.0-47.0); Hemoglobin 8.7 g/dl (12.0-16.0)
--- NOTE | 2024-03-12 16:20 | Hospitalist Progress Note ---
Date of Service March 12, 2024 Assessment & Plan (1) Shock: (2) Type 1 diabetes mellitus: (3) Non-ST elevation [place] (NSTEMI): (4) Acute respiratory failure with hypoxia: (5) Acute renal failure: (6) Sepsis: Plan Pt is a 58yoF with PMHx significant for hypertension, hyperlipidemia, DM 1 on insulin pump, VAHE, CKD (baseline creatinine 1.3), ADHD, anxiety/mood disorder, recent appendectomy 3 days [employer] with post-op hypotension admitted with N/V and continued weakness at home since discharge. Found to be in septic shock, acute hypoxic respiratory failure, fluid overload with pleural effusions, acute kidney injury and complicated UTI on admission. Retroperitoneal Bleed Hematoma Acute Blood Loss anemia Mild to moderate right hydroureteronephrosis Hematoma and retroperitoneal bleed noted on CT abd/pelvis on 03/09 Pt's hgb dropped to 7.1 from 9.2 hours earlier s/p transfusion 2U pRBCs, per Cardiology transfuse to keep hgb >8 in setting of recent NSTEMI s/p stent placement Urology consulted for possible stent placement in setting of hydro -s/p bilateral stent placement and catheter placement for obstruction issues secondary to obstruction from large pelvic hematoma on 03/09 Continue aspirin and Brilinta in setting of cardiac stent placement on 03/09 Continue to monitor H/H q4h If pt's status worsening, consider CTA abd/pelvis and transfer to tertiary care -attempts made for transfer on 03/09 to [facility], advised conservative management at this time. General surgery consulted, appreciate recs Continue to monitor in ICU HypotensionResolved Likely in setting of bleeding/acute blood loss anemia above Required pressor support in the ICU Transfused blood and weaned pressors as tolerated currently off pressors Hypotension currently resolved Acute hypoxic respiratory Failure Pleural Effusions Had oxygen requirement as high as 10L on admission, currently on RA Chest xray noting pleural effusions, possible pneumonia. Procal elevated at 2.66 Chest CTA with no PE. Notes R>L pleural effusions Respiratory panel negative VBG reviewed Oxygen supplementation as needed, wean as tolerated Likely in setting of pleural effusions, possible pneumonia Pulmonology consulted, appreciate recommendations -s/p R sided thoracentesis on 03/06 -removal of 1000ml of serous fluid -transudate -pleural fluid pathology noting no tumor, only benign mesothelial cells, inflammatory cells and RBCs 03/10- overnight respiratory issues requiring oxymask and CPAP overnight, CT chest noting "moderate sized pleural effusions, right greater than left.". Appreciate further pulmonology recs 03/11- stable, on RA 03/12- CT chest noting recurrent pleural effusions. Pulm consulted for further recs CHF, acute Anasarca No prior diagnosis of CHF Chest CTA noting " Mild cardiomegaly with evidence of fluid overload/congestive change" Also R>L pleural effusions BNP reviewed 328 Echo on admission completed and reviewed -No left ventricular regional wall motion abnormalities with borderline hyperdynamic LV function on echocardiogram. -Indirect evidence (septal flattening) of right ventricular pressure and volume overload noted. Cardiology consulted, appreciate recs -TTE repeated (limited) and noted large intracardiac shunt with injection of agitated saline contrast. -Per cardiology, "In the setting of significant RV dilation and dysfunction as well as pulm hypertension this raises concern for atrial septal defect." -Recommending GENNARO for further evaluation -Advised holding diuretic therapy at this time, collaboration with nephrology. -Monitor I's and O's, daily weight, GFR, and electrolytes. -Untreated sleep apnea per pt's med hx -Consider addition of CPAP. CPAP ordered for qhs use GENNARO completed on 03/08, appreciate further cardiology recs -"Transesophageal echocardiogram performed today demonstrating preserved LV systolic function, moderate right ventricular enlargement with mildly reduced right ventricular function. There was no evidence of intracardiac shunt with injection of agitated saline contrast. I suspect patient's transient RV dysfunction with acute decompensated heart failure secondary to untreated sleep apnea in the setting of volume overload. With improving renal function, plan right and left heart catheterization... for further assessment of NSTEMI and pulmonary hypertension. Outpatient sleep medicine referral." s/p cardiac cath on 03/09, with placement of 2 stents in LAD -continue with aspirin and Brillinta Continue to monitor 03/12- Per cardiology, one dose IV Lasix 20mg NSTEMI Trop elevated at 2428--> 3150-->4529-->peak at 5633 EKG reviewed , no evidence of STEMI Received aspirin 324mg in the ED, continue with aspirin 81mg daily Continue IV Heparin Continue statin Cardiology consulted as above, appreciate recommendations -Elevated high-sensitivity troponin more likely reflective of demand ischemia rather than plaque rupture event -Advised cardiac catheterization deferred at this time due to acute renal insufficiency. -"Cardiac catheterization will be considered as hospital course progresses pending ongoing assessment of renal function and respiratory status." -Continue IV heparin, aspirin, and statin therapy. s/p cardiac cath on 03/09, with placement of 2 stents in LAD -continue with aspirin and Brillinta Continue to monitor on telemetry Acute on Chronic Kidney Disease Cr baseline of 1.3, was elevated at 1.82 3 days ago Cr 3.38-->3.12-->2.05-->1.39 Pt fluid overloaded in setting of CHF/anasarca Received 2L of fluids in the ED, will defer on further fluids at this time Continue to hold home losartan Avoid nephrotoxic agents Nephrology consulted, appreciate recs. Recommended/Stated the following: -"-daily bmp -neither IVF nor diuresis indicated currently -continue strict I/O; agree w/ cautiously starting diet; no fluid limit indicated -continue to avoid nephrotoxins -no indication at this time for acute dialysis though cannot rule out need this admission just yet" 03/10- worsening kidney status once more, nephrology following 03/11-improving, appreciate nephrology recs 03/12- improving Severe sepsis/Septic Shock Complicated UTI Possible Pneumonia Pt with leukocytosis, tachypnea, hypotension WBC 12.08 and downtrending Was being treated for a UTI at home with po cefdinir, urine cx grew pansensitive klebsiella Lactate wnl Procal elevated at 2.66 Chest imaging with possible pneumonia CT abd/pelvis with no abscess or acute infectious abnormality in post op setting UA with noted improvement from prior, repeat urine Cx with no significant growth. Postop incisions do not appear infected Blood Cx x1 set NGTD Holding home cefdinir Continue with IV Cefepime and Flagyl (day 01/24) Continue to monitor BP Improving History of Appendicitis s/p appendectomy on 03/02 with General surgery Post op hypotension that resolved with fluids, postop hypoxia and RO as above. CT abd/pelvis with no noted complications Stable DMI On Insulin pump, continue Ensure good glucose control Continue other home meds as directed. Trend labs CODE STATUS: Full code DVT prophylaxis: SCDs Diet: advancing diet as tolerated Dispo: downgraded to PCU Admission and Anticipated Discharge Date Admission Date: March 05, 2024 Subjective Pt was seen in the AM with at bedside. They note improvement in her pain and appearance. States she is feeling better. Concerned about her breathing Review of Systems Review of Systems: All systems reviewed & are unremarkable except as noted in Subjective Physical Exam Physical Exam: General: Alert, oriented. Psych: Appropriate mood and affect HEENT: NC/AT CV: RRR Resp: Breath sounds clear bilaterally, no increased effort of breathing Abdomen:tender diffusely Extremities: edema in lower extremities bilaterally. Results & Data Results & Data Vital Signs (Past 12 Hours) Vital Signs Temp Pulse Pulse Pulse Resp BP BP 03/12/24 15:09 36.8 C 72 16 133/70 03/12/24 11:34 37.2 C 77 14 137/75 03/12/24 08:00 74 16 03/12/24 08:00 135/72 03/12/24 08:00 37.1 C 03/12/24 07:09 72 11 L 03/12/24 07:00 129/60 03/12/24 06:00 77 14 137/73 03/12/24 05:00 74 16 122/66 03/12/24 04:34 73 12 Pulse Ox O2 Del Method FiO2 03/12/24 15:09 100 Room Air 03/12/24 11:34 100 Room Air 03/12/24 08:00 99 03/12/24 08:00 03/12/24 08:00 03/12/24 07:09 97 03/12/24 07:00 03/12/24 06:00 99 Room Air 03/12/24 05:00 96 Room Air 03/12/24 04:34 97 21 (2) Type 1 diabetes mellitus Diabetes mellitus complication status: with other specified complication Qualified Code(s): E10.69 - Type 1 diabetes mellitus with other specified complication (5) Acute renal failure Acute renal failure type: unspecified Qualified Code(s): N17.9 - Acute kidney failure, unspecified (6) Sepsis Acute renal failure type: unspecified Sepsis acute organ dysfunction status: with acute organ dysfunction Sepsis type: sepsis due to unspecified organism Severe sepsis acute organ dysfunction type: acute renal failure Severe sepsis shock status: with septic shock Qualified Code(s): A41.9 - Sepsis, unspecified organism; R65.21 - Severe sepsis with septic shock; N17.9 - Acute kidney failure, unspecified
[2024-03-12] MEDS: LANTUS PER UNIT CHARGE SQ SCH (17:04)
--- NOTE | 2024-03-12 17:23 | Pulmonology Progress Note ---
Date of Service March 12, 2024 Assessment & Plan (1) Bilateral pleural effusion: Plan: Patient is 6 L positive since hospital admission. Agree with diuresis by cardiology. Patient's oxygen saturations are in the mid to high 90s on room air. Patient currently has an end-tidal cannula due to ongoing YARN WASHER infusion. Patient has not been on oxygen for at least the past 24 hours. She does not have any evidence of "respiratory failure". (2) Status post insertion of drug-eluting stent into left anterior descending (LAD) artery: Plan: Cardiac issues are being managed by cardiology at present. Hemodynamics are stable. (3) Intra abdominal hemorrhage: Plan: Hemoglobin has remained stable. Appreciate general surgery input. Advance diet as tolerated. (4) Abdominal pain: Plan: Patient's abdominal pain due to extensive intra-abdominal hemorrhage which will resolve with time. Will discontinue Dilaudid YARN WASHER and start the patient on Dilaudid 0.25 mg every 6 hours as needed. End-tidal CO2 monitoring can be discontinued at this time. Admission and Anticipated Discharge Date Admission Date: March 05, 2024 Subjective I was asked by the hospitalist service to evaluate the patient for "respiratory failure". The patient has been on room air all day with saturations in the mid to high 90s. Patient denies any shortness of breath, cough or chest discomfort. She has been receiving IV diuresis by the cardiology service due to pleural effusions noted on CT chest from the . The patient denies any history of pulmonary disease. The patient currently has an end-tidal nasal cannula in place due to ongoing Dilaudid YARN WASHER. She reports 2 out of 10 abdominal pain at rest. Review of Systems Review of Systems: All systems reviewed & are unremarkable except as noted in HPI & below Physical Exam Physical Exam: Constitutional: Patient appears to be of their stated age. Patient is in no apparent distress. Patient is well-developed. Eyes: Pupils are equal round and reactive to light. Conjunctivae are normal. Anicteric sclera. Ears nose, mouth and throat: Mallampati class 2. Normal posterior oropharynx. Uvula is midline. Neck: Trachea is midline. Visual inspection is normal. Respiratory: Clear to auscultation bilaterally. No use of accessory muscles. No significant clubbing noted. Cardiovascular: Regular rate and rhythm. No murmurs. No edema. Gastrointestinal: Mildly tender to palpation. Normal active bowel sounds. Musculoskeletal: No cyanosis. Patient is able to move all extremities. Strength is 5 out of 5 in the upper and lower extremities. Skin: No rashes, warm dry and intact. Neurologic: No obvious focal neurological deficits seen. Psychiatric: Alert and oriented x3 with a euthymic affect. Results & Data Results & Data Vital Signs (Past 12 Hours) Vital Signs Temp Pulse Pulse Pulse Resp BP BP 03/12/24 15:09 36.8 C 72 16 133/70 03/12/24 11:34 37.2 C 77 14 137/75 03/12/24 08:00 74 16 03/12/24 08:00 135/72 03/12/24 08:00 37.1 C 03/12/24 07:09 72 11 L 03/12/24 07:00 129/60 03/12/24 06:00 77 14 137/73 Pulse Ox O2 Del Method 03/12/24 15:09 100 Room Air 03/12/24 11:34 100 Room Air 03/12/24 08:00 99 03/12/24 08:00 03/12/24 08:00 03/12/24 07:09 97 03/12/24 07:00 03/12/24 06:00 99 Room Air PG Care Time/CCT Total # of Minutes Spent Total Time Spent with Patient: Total time spent is greater than 50% in coordination of care (as documented) at patient's floor/unit and/or counseling patient: Coding Level of Care Code 32331 SUB INP/OBS CARE 2/35MIN Diagnoses Bilateral pleural effusion J90 Status post insertion of drug-eluting stent into left anterior descending (LAD) artery Z95.5 Intra abdominal hemorrhage R58 Abdominal pain R10.9
[2024-03-12] MEDS: HYDROmorphone INJ 0.5 MG/0.5 ML SYR IV PRN (19:07)
--- NOTE | 2024-03-13 07:02 | XRay Report ---
XR chest 1V portable CLINICAL HISTORY: follow up pleural effusions COMPARISON STUDY: Chest radiograph March 06, 2024. Chest CT March 09, 2024. FINDINGS: Small to moderate bilateral pleural effusions persist. Associated bibasilar opacities favor atelectasis. There is no pneumothorax. There is no evidence for pulmonary edema. Cardiomediastinal s ilhouette is stable. IMPRESSION: Persistent [id number] bilateral pleural effusions. ACT 112: Negative or not required by law. Electronically signed by: Josh Rodriguez M.D. 03/13/2024 7:00 AM
[2024-03-13 07:46] LABS: Basophils # (auto) 0.03 K/uL (0.00-0.20); Basophils % (auto) 0.2 %; Eosinophils # (auto) 0.34 K/uL (0.00-0.50); Eosinophils % (auto) 2.8 %; Hematocrit (blood only) 24.2 % (37.0-47.0); Hemoglobin 8.4 g/dl (12.0-16.0); Immature Granulocytes # (auto) 0.14 K/uL (0.01-0.20); Immature Granulocytes % (auto) 1.2 %; Lymphocytes # (auto) 0.91 K/uL (1.20-3.40); Lymphocytes % (auto) 7.5 %; Mean Corpuscular Hemoglobin 31.6 pg (25.0-34.0); Mean Corpuscular Hgb Conc 34.7 g/dL (32.0-36.0); Mean Platelet Volume 10.2 fL (9.4-12.4); Monocytes # (auto) 0.76 K/uL (0.11-0.59); Monocytes % (auto) 6.3 %; Neutrophils # (auto) 9.89 K/uL (1.40-6.50); Nucleated RBC # (auto) 0.06 K/uL (0.00-0.12); Nucleated RBC % (auto) 0.5 %; Platelet Count 309 K/uL (130-400); RDW Standard Deviation 43.6 fL (36.4-46.3); Red Blood Count 2.66 M/uL (4.20-5.40); White Blood Count 12.07 K/ul (4.8-10.8)
[2024-03-13 07:54] LABS: BUN Creatinine Ratio 15.4 (10-20); Calcium 8.3 mg/dl (8.6-10.3); Chol HDL Ratio 2.1 (0-5); Creatinine Clr Calc Pharmacy 52.1 ml/min; Est GFR (African American) 59.9 ml/min; Est GFR (Non-African American) 51.7 ml/min; Magnesium 1.8 mg/dl (1.7-2.4); Phosphorus 2.9 mg/dl (2.5-4.9); Potassium 3.3 mmol/L (3.5-5.1)
--- NOTE | 2024-03-13 08:49 | Pharmacy Report ---
Pharmacy Glycemic Short Note 2 - Date of Service March 13, 2024 - Glycemic Short BSG Results (Last 24 hours): 03/12/24 03/12/24 03/12/24 10:59 16:15 20:34 Glucose POC Glucose 166 H 171 H 171 H 03/13/24 03/13/24 07:09 07:24 Glucose 108 H POC Glucose 125 H OUTPATIENT ANTIDIABETIC REGIMEN: * Novolog Insulin Pump * Basal rate of 0.2 units/hr * HbA1c = 6.9% on 03/02/24 ASSESSMENT: 03/13: * BSG's ranged 155-171 mg/dL yesterday. Will lower goal range to provide slightly more correctional insulin * Stressors stable. Clear liq diet ordered this AM. Patient requested advancement in diet and now renal diet ordered for lunch. * Patient likely ready for transition back to pump. D/w RN (Palak) - patient has all supplies needed and is able/willing to transition back * Messaged Dr. Crespo and awaiting OK to transition back to home pump at dinner today (last dose of Lantus was dinner yesterday) - passed on to pharmacist (Nazia) for response / intervention 03/12: * Amanda received 10 units of insulin yesterday, 8 of which were basal. BSGs were: [phone] mg/dL. * Fasting was 155 mg/dL this AM. Patient ordered a clear liquid diet. She has not been having much PO intake thus far. Therefore, I am hesitant to resume patient's home insulin pump today. If PO intake improves tomorrow, may resume home pump. * BSGs have trended up throughout the day over the weekend. Therefore, will tighten correction factor slightly today. 03/10: * 58 y/o F admitted for shock, bilateral pleural effusions, peripheral edema. She has history of Type 1 diabetes, chronic kidney disease and interstitial lung disease. She also has an intra-abdominal hematoma and RO. Currently NPO. She was recently admitted for appendicitis and underwent surgery for this. * Patient's diabetes is managed with Novolog insulin pump at home. This is currently off due to high blood sugars last night. * Pharmacy consulted for glycemic management. Patient was given basal insulin based on stress of 1 last night. She is not on any steroids and NPO. BSGs trending downwards. Therefore, will continue with basal insulin stress of 1 dose again for tonight. * Novolog parameters ordered yesterday between and stress of 1 and 2 parameters and q4h checks. She received total of 3 units of bolus insulin yesterday. Goal range and correction factor tightened this morning. Pre-lunch BSG trended down to 148 mg/dl today. PLAN FOR INPATIENT GLYCEMIC CONTROL: * Basal insulin * Lantus 8 units SC QDD * Bolus insulin * NovoLog per scale q4h while NPO * Goal Range: Low 110 mg/dL - High 140 mg/dL * Correction Factor: 30 mg/dL/unit * Nutritional / Prandial insulin per carb ratio of 1 unit per 15 grams CHO consumed
[2024-03-13] MEDS: POTASSIUM CHLORIDE CRTAB 20 MEQ TABCR PO STA ×2 (09:04)
--- NOTE | 2024-03-13 09:18 | Pulmonology Progress Note ---
Date of Service March 13, 2024 Assessment & Plan (1) Bilateral pleural effusion: Plan: Patient is 6 L positive since hospital admission. Agree with diuresis by cardiology. Patient's oxygen saturations are in the mid to high 90s on room air. She does not have any evidence of "respiratory failure". Chest x-ray today demonstrates resolving pleural effusions and atelectasis. Patient encouraged to use incentive spirometer to help resolve her atelectasis. (2) Status post insertion of drug-eluting stent into left anterior descending (LAD) artery: Plan: Cardiac issues are being managed by cardiology at present. Hemodynamics are stable. (3) Intra abdominal hemorrhage: Plan: Hemoglobin has remained stable. Appreciate general surgery input. Advance diet as tolerated. (4) Abdominal pain: Plan: Patient's abdominal pain due to extensive intra-abdominal hemorrhage which will resolve with time. She is doing well up with Dilaudid DIE CAST ENGINEER at this time. Plan Pulmonary to sign off at this time. Thank you for the consult. Please call questions. Admission and Anticipated Discharge Date Admission Date: March 05, 2024 Subjective Patient continues to do quite well. Sitting up in a chair. On room air. Denies any significant shortness of breath or cough. Review of Systems Review of Systems: All systems reviewed & are unremarkable except as noted in HPI & below Physical Exam Physical Exam: Constitutional: Patient appears to be of their stated age. Patient is in no apparent distress. Patient is well-developed. Eyes: Pupils are equal round and reactive to light. Conjunctivae are normal. Anicteric sclera. Ears nose, mouth and throat: Mallampati class 2. Normal posterior oropharynx. Uvula is midline. Neck: Trachea is midline. Visual inspection is normal. Respiratory: Clear to auscultation bilaterally. No use of accessory muscles. No significant clubbing noted. Cardiovascular: Regular rate and rhythm. No murmurs. No edema. Gastrointestinal: Mildly tender to palpation. Normal active bowel sounds. Musculoskeletal: No cyanosis. Patient is able to move all extremities. Strength is 5 out of 5 in the upper and lower extremities. Skin: No rashes, warm dry and intact. Neurologic: No obvious focal neurological deficits seen. Psychiatric: Alert and oriented x3 with a euthymic affect. Results & Data Results & Data Vital Signs (Past 12 Hours) Vital Signs Temp Pulse Pulse Resp BP BP Pulse Ox 03/13/24 03:46 71 14 100 08/27/24 03:43 36.9 C 72 15 147/84 H 100 03/12/24 23:59 73 03/12/24 22:38 37.1 C 72 14 154/92 H 99 03/12/24 22:36 73 17 100 O2 Del Method FiO2 03/13/24 03:46 21 03/13/24 03:43 CPAP 03/12/24 23:59 03/12/24 22:38 CPAP 03/12/24 22:36 21 PG Care Time/CCT Total # of Minutes Spent Total Time Spent with Patient: Total time spent is greater than 50% in coordination of care (as documented) at patient's floor/unit and/or counseling patient: Coding Level of Care Code 24727 SUB INP/OBS CARE 2/35MIN Diagnoses Bilateral pleural effusion J90 Status post insertion of drug-eluting stent into left anterior descending (LAD) artery Z95.5 Intra abdominal hemorrhage R58 Abdominal pain R10.9
--- NOTE | 2024-03-13 09:48 | Cardiology Progress Note ---
Date of Service March 13, 2024 Assessment & Plan (1) Hematoma: (2) Acute blood loss anemia: (3) Hydronephrosis: (4) Non-ST elevation UT (NSTEMI): (5) Status post insertion of drug-eluting stent into left anterior descending (LAD) artery: (6) Right ventricular dysfunction: (7) Acute renal failure: Plan 58-year-old female with history of DM-1 diagnosed at age 8, status post right and left heart catheterization with two drug-eluting stents placed in the mid left anterior descending artery 03/09/2024. Postprocedure patient suffered acute blood loss anemia, with CT evidence of intramuscular right rectus abdominis muscle and complex hyperdense fluid collection in the right pelvis. Hemoglobin stable overnight. 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 Patient on clear diet, s/p recent appendectomy, with noted watery diarrhea. * Continue ASA, Brilinta * Not on beta mitchell due to concerns of recent low BP and relatively low heart rates in the 60s 70s at baseline * Not on CHAPARRO inhibitor/ARB due to relatively low blood pressure during stay, is on losartan as an outpatient * Continue IV furosemide, 20 mg IV x 1 now * Potassium supplementation ordered * LDL cholesterol 38 mg /dl. * Continue lovastatin * Holding pharmacologic DVT prophylaxis due to acute blood loss anemia. * Case reviewed with Dr Desai of critical care medicine for the purpose of coordination of care. Admission and Anticipated Discharge Date Admission Date: March 05, 2024 Subjective Patient seen in cardiology follow up. Notes ongoing diarrhea. Notes abdominal pain with movement , but controlled. Denies CP or shortness of breath. Sitting in bedside chair . SR in the 70s noted on telemetry. Review of Systems Review of Systems: All systems reviewed & are unremarkable except as noted in HPI & below Physical Exam Constitutional: well nourished; no acute distress Respiratory: normal respiratory effort; no respiratory distress, no labored breathing and no retractions Auscultation: + diminished lung sounds (Bases bilateral); no crackles, no rales, no rhonchi and no wheezes Cardiovascular: Rate/Rhythm: regular rate and regular rhythm Heart Sounds: normal S1, normal S2 and + murmur (1/6 mid systolic murmur heard at LSB) Vessels: femoral pulses present and radial pulses present; no JVD and no carotid bruit Extremities: + edema (1+ upper and lower extremity edema.) Gastrointestinal (Abdomen): Inspection/Auscultation: + abdomen distended and normal bowel sounds Percussion/Palpation: + abdomen tender and abdomen soft; no guarding and abdomen not rigid Neurologic: CN's II-XI intact bilaterally and moves all extremities; no focal motor deficits Results & Data Vital Signs (Past 12 Hours) Vital Signs Temp Pulse Pulse Resp BP BP Pulse Ox 03/13/24 03:46 71 14 100 03/13/24 03:43 36.9 C 72 15 147/84 H 100 03/12/24 23:59 73 03/12/24 22:38 37.1 C 72 14 154/92 H 99 03/12/24 22:36 73 17 100 O2 Del Method FiO2 03/13/24 03:46 21 03/13/24 03:43 CPAP 03/12/24 23:59 03/12/24 22:38 CPAP 03/12/24 22:36 21 Laboratory Results Lipids 03/13/24 Range/Units 07:09 Triglycerides 100 (0-150) mg/dl Cholesterol 112 (0-200) mg/dl HDL Cholesterol 54 mg/dl Cholesterol/HDL Ratio 2.1 (0-5) CBC 03/12/24 03/13/24 Range/Units 12:00 07:09 WBC 12.07 H (4.8-10.8) K/ul RBC 2.66 L (4.20-5.40) M/uL Hgb 8.7 L 8.4 L (12.0-16.0) g/dl Hct 25.6 L 24.2 L (37.0-47.0) % Plt Count 309 (130-400) K/uL Neut # (Auto) 9.89 H (1.40-6.50) K/uL Lymph # (Auto) 0.91 L (1.20-3.40) K/uL [place] # (Auto) 0.76 H (0.11-0.59) K/uL Eos # (Auto) 0.34 (0.00-0.50) K/uL Baso # (Auto) 0.03 (0.00-0.20) K/uL Comprehensive Metabolic Panel 03/13/24 Range/Units 07:09 Sodium 141 (136-145) mmol/L Potassium 3.3 L (3.5-5.1) mmol/L Chloride 106 (98-107) mmol/L Carbon Dioxide 21 (21-32) mmol/L BUN 18 (6-23) mg/dl Creatinine 1.17 D (0.6-1.2) mg/dl Glucose 108 H (70-99(Fasting)) mg/dl Calcium 8.3 L (8.6-10.3) mg/dl Intake and Output 03/12/24 03/13/24 03/13/24 22:59 06:59 14:59 Intake Total 1283.5 / 1983.5 100 / 100 Output Total 1250 / 3075 475 / 3075 Balance 33.5 / -1091.5 -475 / -1091.5 100 / 100 Intake: IV 1033.5 / 1233.5 100 / 100 Acetaminophen 1,000 mg In 100 100 / 200 100 / 100 ml @ 400 mls/hr IV Q8H KANDI Rx#: [id number] Sodium Chloride 0.9% 1,000 ml @ 833.5 / 833.5 15 mls/hr IV .Q24H KANDI Rx#: [id number] metroNIDAZOLE 500 mg In 100 ml 100 / 200 @ 100 mls/hr IV Q8H KANDI Rx#: [id number] Oral 250 / 750 Output: Urine Amount (Catheter) 1250 / 3075 475 / 3075 Patterson/Indwelling 1250 / 3075 475 / 3075 (7) Acute renal failure Acute renal failure type: unspecified Qualified Code(s): N17.9 - Acute kidney failure, unspecified
[2024-03-13] MEDS: FUROSEMIDE INJ 20 MG/2 ML VIAL IV ONE (10:58)
[2024-03-13] MEDS ORDERED: INSULIN ASPART 100 UNITS/ML VIAL SC PRN (12:26)
--- NOTE | 2024-03-13 12:58 | Urology Progress Note ---
Date of Service March 13, 2024 Assessment & Plan (1) Hydronephrosis: (2) Hematoma: Plan 58-year-old female admitted to the ICU s/p Appendectomy with significant post op issues with readmission. Underwent cardiac catheterization for NSTEMI and is s/p LAD stent x 2. Became hypotensive with severe abdominal pain and a CT abdomen pelvis was done which showed 10 cm pelvic hematoma vs rectus sheath hematoma with significant shift to the left of bladder and right sided hydronep hrosis. Underwent transfusion due to ABLA. Initially required pressors. Improved with volume and transfusion. Stabilized and underwent bilateral stent placement and catheter placement due to obstruction from mass effect from large hematoma. POD#4 s/p cystoscopy bilateral stent and catheter placement Afebrile with stable vitals. Remains in ICU. Labs today show a wbc 12.07, hemoglobin 8.4, creatinine 1.17. Patterson intact and draining pink urine. Will plan to maintain ureteral stents and Patterson catheter for now until improving. She did have significant degree of obstruction from mass effect on both the right ureter and bladder neck. Left ureter also appeared to have drainage issues likely also due to mass effect. She may need reimaged at some point to reassess. Continue supportive care and monitoring. Urology will follow. Admission and Anticipated Discharge Date Admission Date: March 05, 2024 Subjective Pt seen at bedside in the ICU Awake, sitting up in chair on arrival No acute distress at bedside Feeling better overall Tolerating stents Patterson draining pink urine No fevers Review of Systems Constitutional: as per Subjective / HPI Genitourinary: as per Subjective / HPI Physical Exam Constitutional: no acute distress Respiratory: no respiratory distress and no labored breathing Neurologic: awake Psychiatric: Orientation: alert, oriented x 3 and cooperative Genitourinary: Patterson intact Results & Data Vital Signs (Past 12 Hours) Vital Signs Temp Pulse Pulse Resp BP BP Pulse Ox 03/13/24 11:19 37.3 C 03/13/24 11:00 82 20 138/86 100 03/13/24 03:46 71 14 100 03/13/24 03:43 36.9 C 72 15 147/84 H 100 O2 Del Method FiO2 03/13/24 11:19 03/13/24 11:00 Room Air 03/13/24 03:46 21 03/13/24 03:43 CPAP PG Care Time/CCT Total # of Minutes Spent Total Time Spent with Patient: Total time spent is greater than 50% in coordination of care (as documented) at patient's floor/unit and/or counseling patient: Coding Level of Care Code 48426 SUB INP/OBS CARE 2MIN Diagnoses Hydronephrosis N13.30 Hematoma T14.8XXA
--- NOTE | 2024-03-13 13:45 | Pharmacy Report ---
Pharmacy Glycemic Sign Off Nt - Date of Service March 13, 2024 - Assessment & Plan ASSESSMENT: * Pharmacy was consulted by Dr Renee on 03/09 for glycemic control and to write orders per [facility] inpatient glycemic control protocol. * Major changes made by pharmacy to antidiabetic regimen include: * Changing patient to subcutaneous basal/bolus dosing at start of inpatient stay * Restarting patient on Novolog pump in preparation for discharge * Patient has been receiving/requiring 10-11 units of insulin per day for adequate glycemic control * BSGs ranging 103-194 mg/dl * Regimen has only required minor adjustments over the past 48hrs to achieve this level of control * Do not anticipate further changes in patient status that would quickly deteriorate glycemic control (i.e. patient to be NPO for upcoming procedure, steroids tapering, starting tube feedings, etc). * Please see recommendations for outpatient antidiabetic regimen below. PLAN FOR INPATIENT GLYCEMIC CONTROL: No changes needed to current regimen. * Restart Novolog insulin pump at home settings. Pharmacy does not follow patients using insulin pumps. * Pharmacy is signing off of glycemic consult and will no longer be making adjustments to inpatient regimen. Please feel free to re-consult if needed. Thank you.
--- NOTE | 2024-03-13 13:51 | Hospitalist Progress Note ---
Date of Service March 13, 2024 Assessment & Plan (1) Shock: (2) Type 1 diabetes mellitus: (3) Non-ST elevation SC (NSTEMI): (4) Acute respiratory failure with hypoxia: (5) Acute renal failure: (6) Sepsis: Plan Pt is a 58yoF with PMHx significant for hypertension, hyperlipidemia, DM 1 on insulin pump, VAHE, CKD (baseline creatinine 1.3), ADHD, anxiety/mood disorder, recent appendectomy 3 days [facility] with post-op hypotension admitted with N/V and continued weakness at home since discharge. Found to be in septic shock, acute hypoxic respiratory failure, fluid overload with pleural effusions, acute kidney injury and complicated UTI on admission. Retroperitoneal Bleed Hematoma Acute Blood Loss anemia Mild to moderate right hydroureteronephrosis Hematoma and retroperitoneal bleed noted on CT abd/pelvis on 03/09 Pt's hgb dropped to 7.1 from 9.2 hours earlier s/p transfusion 2U pRBCs, per Cardiology transfuse to keep hgb >8 in setting of recent NSTEMI s/p stent placement Urology consulted for possible stent placement in setting of hydro -s/p bilateral stent placement and catheter placement for obstruction issues secondary to obstruction from large pelvic hematoma on 03/09 Continue aspirin and Brilinta in setting of cardiac stent placement on 03/09 Continue to monitor H/H q4h If pt's status worsening, consider CTA abd/pelvis and transfer to tertiary care -attempts made for transfer on 03/09 to [place] and [facility] [place], advised conservative management at this time. General surgery consulted, appreciate recs 03/13-H/H has remained stable, pain improving, pt off dilaudid pump. HypotensionResolved Likely in setting of bleeding/acute blood loss anemia above Required pressor support in the ICU Transfused blood and weaned pressors as tolerated currently off pressors Hypotension currently resolved Acute hypoxic respiratory Failure Pleural Effusions Had oxygen requirement as high as 10L on admission, currently on RA Chest xray noting pleural effusions, possible pneumonia. Procal elevated at 2.66 Chest CTA with no PE. Notes R>L pleural effusions Respiratory panel negative VBG reviewed Oxygen supplementation as needed, wean as tolerated Likely in setting of pleural effusions, possible pneumonia Pulmonology consulted, appreciate recommendations -s/p R sided thoracentesis on 03/06 -removal of 1000ml of serous fluid -transudate -pleural fluid pathology noting no tumor, only benign mesothelial cells, inflammatory cells and RBCs 03/10- overnight respiratory issues requiring oxymask and CPAP overnight, CT chest noting "moderate sized pleural effusions, right greater than left.". Appreciate further pulmonology recs 03/11- stable, on RA 03/12- CT chest noting recurrent pleural effusions. Pulm consulted for further recs 03/13- stable CHF, acute Anasarca No prior diagnosis of CHF Chest CTA noting " Mild cardiomegaly with evidence of fluid overload/congestive change" Also R>L pleural effusions BNP reviewed 328 Echo on admission completed and reviewed -No left ventricular regional wall motion abnormalities with borderline hyperdynamic LV function on echocardiogram. -Indirect evidence (septal flattening) of right ventricular pressure and volume overload noted. Cardiology consulted, appreciate recs -TTE repeated (limited) and noted large intracardiac shunt with injection of agitated saline contrast. -Per cardiology, "In the setting of significant RV dilation and dysfunction as well as pulm hypertension this raises concern for atrial septal defect." -Recommending GENNARO for further evaluation -Advised holding diuretic therapy at this time, collaboration with nephrology. -Monitor I's and O's, daily weight, GFR, and electrolytes. -Untreated sleep apnea per pt's med hx -Consider addition of CPAP. CPAP ordered for qhs use GENNARO completed on 03/08, appreciate further cardiology recs -"Transesophageal echocardiogram performed today demonstrating preserved LV systolic function, moderate right ventricular enlargement with mildly reduced right ventricular function. There was no evidence of intracardiac shunt with injection of agitated saline contrast. I suspect patient's transient RV dysfunction with acute decompensated heart failure secondary to untreated sleep apnea in the setting of volume overload. With improving renal function, plan right and left heart catheterization... for further assessment of NSTEMI and pulmonary hypertension. Outpatient sleep medicine referral." s/p cardiac cath on 03/09, with placement of 2 stents in LAD -continue with aspirin and Brillinta Continue to monitor 03/12- Per cardiology, one dose IV Lasix 20mg, Cr improving daily. Continue to monitor Is and Os 03/13- Cardiology gave another dose of IV Lasix 20mg, Cr wnl today. Continue to monitor Is and Os NSTEMI Trop elevated at 2428--> 3150-->4529-->peak at 5633 EKG reviewed , no evidence of STEMI Received aspirin 324mg in the ED, continue with aspirin 81mg daily Continue IV Heparin Continue statin Cardiology consulted as above, appreciate recommendations -Elevated high-sensitivity troponin more likely reflective of demand ischemia rather than plaque rupture event -Advised cardiac catheterization deferred at this time due to acute renal insufficiency. -"Cardiac catheterization will be considered as hospital course progresses pending ongoing assessment of renal function and respiratory status." -Continue IV heparin, aspirin, and statin therapy. s/p cardiac cath on 03/09, with placement of 2 stents in LAD -continue with aspirin and Brillinta Continue to monitor on telemetry Acute on Chronic Kidney Disease Cr baseline of 1.3, was elevated at 1.82 3 days ago Cr 3.38-->3.12-->2.05-->1.39 Pt fluid overloaded in setting of CHF/anasarca Received 2L of fluids in the ED, will defer on further fluids at this time Continue to hold home losartan Avoid nephrotoxic agents Nephrology consulted, appreciate recs. Recommended/Stated the following: -"-daily bmp -neither IVF nor diuresis indicated currently -continue strict I/O; agree w/ cautiously starting diet; no fluid limit indicated -continue to avoid nephrotoxins -no indication at this time for acute dialysis though cannot rule out need this admission just yet" 03/10- worsening kidney status once more, nephrology following 03/11-improving, appreciate nephrology recs 03/12- improving 03/13- Cr wnl today Severe sepsis/Septic Shock Complicated UTI Possible Pneumonia Pt with leukocytosis, tachypnea, hypotension WBC 12.08 and downtrending Was being treated for a UTI at home with po cefdinir, urine cx grew pansensitive klebsiella Lactate wnl Procal elevated at 2.66 Chest imaging with possible pneumonia CT abd/pelvis with no abscess or acute infectious abnormality in post op setting UA with noted improvement from prior, repeat urine Cx with no significant growth. Postop incisions do not appear infected Blood Cx x1 set NGTD Holding home cefdinir Continue with IV Cefepime and Flagyl (day 9/10). ID consulted for further recs given global picture. Continue to monitor BP Improving History of Appendicitis s/p appendectomy on 03/02 with General surgery Post op hypotension that resolved with fluids, postop hypoxia and RO as above. CT abd/pelvis with no noted complications Stable DMI On Insulin pump at home Glycemic consult was placed and pt has been off her home pump CODE STATUS: Full code DVT prophylaxis: SCDs Diet: advancing diet as tolerated Dispo: downgraded from ICU to PCU Admission and Anticipated Discharge Date Admission Date: March 05, 2024 Subjective pt was seen with at bedside. Sitting up in chair at bedside. Off dilaudid pump, states that pain is improved. Asking for diet to be advanced. Review of Systems Review of Systems: All systems reviewed & are unremarkable except as noted in Subjective Physical Exam Physical Exam: General: Alert, oriented. Psych: Appropriate mood and affect HEENT: NC/AT CV: RRR Resp: Breath sounds clear bilaterally, no increased effort of breathing Abdomen:tender diffusely Extremities: edema in lower extremities bilaterally. Results & Data Results & Data Vital Signs (Past 12 Hours) Vital Signs Temp Pulse Pulse Resp BP BP Pulse Ox 03/13/24 11:19 37.3 C 03/13/24 11:00 82 20 138/86 100 03/13/24 03:46 71 14 100 03/13/24 03:43 36.9 C 72 15 147/84 H 100 O2 Del Method FiO2 03/13/24 11:19 03/13/24 11:00 Room Air 03/13/24 03:46 21 03/13/24 03:43 CPAP (2) Type 1 diabetes mellitus Diabetes mellitus complication status: with other specified complication Qualified Code(s): E10.69 - Type 1 diabetes mellitus with other specified complication (5) Acute renal failure Acute renal failure type: unspecified Qualified Code(s): N17.9 - Acute kidney failure, unspecified (6) Sepsis Acute renal failure type: unspecified Sepsis acute organ dysfunction status: with acute organ dysfunction Sepsis type: sepsis due to unspecified organism Severe sepsis acute organ dysfunction type: acute renal failure Severe sepsis shock status: with septic shock Qualified Code(s): A41.9 - Sepsis, unspecified organism; R65.21 - Severe sepsis with septic shock; N17.9 - Acute kidney failure, unspecified
[2024-03-13] MEDS ORDERED: PHARMACY GLYCEMIC MGMT CONSULT PRN (14:42)
[2024-03-13] MEDS ORDERED: INSULIN, Rapid-Acting PUMP SC SCH (16:30)
[2024-03-13] MEDS: metroNIDAZOLE 500 MG/100 ML BAG IV SCH (16:54)
[2024-03-13] MEDS: CEFEPIME 2,000 MG in SYRINGE 0 ML IV SCH (17:31)
[2024-03-13] MEDS: POTASSIUM CHLORIDE CRTAB 20 MEQ TABCR PO SCH (20:00)
[2024-03-14 05:21] LABS: Basophils # (auto) 0.03 K/uL (0.00-0.20); Basophils % (auto) 0.2 %; Eosinophils # (auto) 0.21 K/uL (0.00-0.50); Eosinophils % (auto) 1.7 %; Hematocrit (blood only) 22.2 % (37.0-47.0); Hemoglobin 7.6 g/dl (12.0-16.0); Immature Granulocytes # (auto) 0.17 K/uL (0.01-0.20); Immature Granulocytes % (auto) 1.4 %; Lymphocytes # (auto) 1.23 K/uL (1.20-3.40); Lymphocytes % (auto) 10.1 %; Mean Corpuscular Hemoglobin 31.8 pg (25.0-34.0); Mean Corpuscular Hgb Conc 34.2 g/dL (32.0-36.0); Mean Corpuscular Volume 92.9 fL (80.0-100.0); Mean Platelet Volume 10.2 fL (9.4-12.4); Monocytes # (auto) 1.05 K/uL (0.11-0.59); Monocytes % (auto) 8.6 %; Neutrophils # (auto) 9.48 K/uL (1.40-6.50); Nucleated RBC # (auto) 0.04 K/uL (0.00-0.12); Nucleated RBC % (auto) 0.3 %; Platelet Count 300 K/uL (130-400); RDW Coefficient of Variation 15.9 % (11.5-14.5); RDW Standard Deviation 45.1 fL (36.4-46.3); Red Blood Count 2.39 M/uL (4.20-5.40); White Blood Count 12.17 K/ul (4.8-10.8)
[2024-03-14 05:45] LABS: Albumin Level 2.7 gm/dl (3.4-5.0); Bilirubin,Total 0.8 mg/dl (0.2-1.0); Calcium 7.7 mg/dl (8.6-10.3); Magnesium 1.6 mg/dl (1.7-2.4); Potassium 3.7 mmol/L (3.5-5.1)
[2024-03-14 05:51] LABS: Albumin Globulin Ratio 1.3 (0.9-2); BUN Creatinine Ratio 11.4 (10-20); Creatinine Clr Calc Pharmacy 46.2 ml/min; Est GFR (African American) 51.8 ml/min; Est GFR (Non-African American) 44.7 ml/min; Globulin 2.1 gm/dl (2.5-4.0); Phosphorus 3.2 mg/dl (2.5-4.9); Total Protein 4.8 gm/dl (6.0-8.3)
[2024-03-14 06:10] LABS: Polychromasia 1+
--- NOTE | 2024-03-14 07:20 | Hospitalist Progress Note ---
Date of Service March 14, 2024 Assessment & Plan (1) Shock: (2) Type 1 diabetes mellitus: (3) Non-ST elevation OR (NSTEMI): (4) Acute respiratory failure with hypoxia: (5) Acute renal failure: (6) Sepsis: Plan Ms. Machuca is a 58yoF with PMHx significant for hypertension, hyperlipidemia, DM 1 on insulin pump, VAHE, CKD (baseline creatinine 1.3), ADHD, anxiety/mood disorder, recent appendectomy on 03/02 with post-op hypotension admitted with N/V and continued weakness at home since discharge. Found to be in septic shock, acute hypoxic respiratory failure, fluid overload with pleural effusions, acute kidney injury and complicated UTI on admission. #Leukocytosis patient clinically improving, likely iso hematoma/retroperitoneal bleed afebrile Will likely d/c abx contingent on ID recommendations Follow up c diff as discussed below #Diarrhea possible multifactorial, aggressive bowel regimen scheduled days prior, on multiple PO replacements, as well as IV abx C Diff ordered Hold bowel regimen #Acute heart failure with preserved EF #Anasarca Chest CTA noting " Mild cardiomegaly with evidence of fluid overload/congestive change" Also R>L pleural effusions, BNP reviewed 328 Echo on admission completed and reviewed: -No left ventricular regional wall motion abnormalities with borderline hyperdynamic LV function on echocardiogram. -Indirect evidence (septal flattening) of right ventricular pressure and volume overload noted. Cardiology consulted, appreciate recs -TTE repeated (limited) and noted large intracardiac shunt with injection of agitated saline contrast. -Recommending GENNARO for further evaluation, performed on 03/08 "RV dysfunction with acute decompensated heart failure secondary to untreated sleep apnea in the setting of volume overload." Sleep study referral as op -Monitor I's and O's, daily weight, GFR, and electrolytes. Continue with IV lasix 20mg IV daily per Cardiology Replace lytes K>4, mag >2 phos>3 #Acute on Chronic Kidney Disease #Obstructive Uropathy 2/2 pelvic hematoma s/p cystoscopy bilateral stent placement #Mild to moderate right hydroureteronephrosis Urology consulted -s/p bilateral stent placement and catheter placement for obstruction issues secondary to obstruction from large pelvic hematoma on 03/09 Cr baseline of 1.3, was elevated at 1.82 3 days ago Cr 3.38-->3.12-->2.05-->1.39 Pt fluid overloaded in setting of acute HFpEF Received 2L of fluids in the ED, will defer on further fluids at this time Continue to hold home losartan Avoid nephrotoxic agents Nephrology consulted, appreciate recs. Recommended/Stated the following: -daily bmp -continue strict I/O; agree w/ cautiously starting diet; no fluid limit indicated Cr at baseline 1.32 today, monitor closely iso diuresis Urology recommends void trial at any time prior to dispo, with plans to replace if void trial fails #Acute Retroperitoneal Bleed s/p C on 03/09 #Pelvic Hematoma #Acute Blood Loss anemia Hematoma and retroperitoneal bleed noted on CT abd/pelvis on 03/09 Pt's hgb dropped to 7.1 from 9.2 hours earlier s/p transfusion 2U pRBCs, per Cardiology transfuse to keep hgb >8 in setting of recent NSTEMI s/p stent placement Continue aspirin and Brilinta in setting of cardiac stent placement on 03/09 If pt's status worsening, consider CTA abd/pelvis and transfer to tertiary care -attempts made for transfer on 03/09 to [facility], advised conservative management at this time. -Remains stable and clinically improving General surgery consulted, appreciate recs -Conservative management, no surgical intervention at this time -Continue IS -PT/OT ordered Trend hgb daily Plan for repeat imaging in 4-6 weeks, or sooner if patient decompensates #NSTEMI #Severe coronary artery disease s/p CHI to LAD s/p cardiac cath on 03/09, with placement of 2 stents in LAD -continue with aspirin and Brillinta -continue statin #Acute hypoxic respiratory Failure, multifactorial *resolved #Bilateral Pleural Effusions, s/p thoracentesis Had oxygen requirement as high as 10L on admission, currently on RA Chest xray noting pleural effusions, 2/2 acute HFpEF Chest CTA with no PE. Notes R>L pleural effusions Respiratory panel negative VBG reviewed Oxygen supplementation as needed, wean as tolerated Likely in setting of pleural effusions, possible pneumonia Pulmonology consulted, appreciate recommendations -s/p R sided thoracentesis on 03/06, transudative, 1000ml removed Recurrent pleural effusions, undergoing IV diuresis at this time IS #Severe sepsis/Septic Shock *resolved #Complicated UTI Pt with leukocytosis, tachypnea, hypotension WBC 12.08 and downtrending Was being treated for a UTI at home with po cefdinir, urine cx grew pansensitive klebsiella Lactate wnl Procal elevated at 2.66 Chest imaging with possible pneumonia CT abd/pelvis with no abscess or acute infectious abnormality in post op setting UA with noted improvement from prior, repeat urine Cx with no significant growth. Postop incisions do not appear infected Blood Cx x1 set NGTD Holding home cefdinir Continue with IV Cefepime and Flagyl (day 04/26). ID consulted ny prior hospitalist for further recs given global picture, will appreciate recommendations Continue to monitor BP Improving #History of Appendicitis s/p appendectomy on 03/02 with General surgery Post op hypotension that resolved with fluids, postop hypoxia and RO as above. Stable #DMI On Insulin pump at home Glycemic consult was placed and pt has been off her home pump Resume insulin pump as tolerated #HypotensionResolved Likely in setting of bleeding/acute blood loss anemia above Required pressor support in the ICU Transfused blood and weaned pressors as tolerated CODE STATUS: Full code DVT prophylaxis: SCDs Diet: advancing diet as tolerated Dispo: PCU at this time Admission and Anticipated Discharge Date Admission Date: March 05, 2024 Subjective Remains afebrile Reports feeling much better in comparison to days prior Reports loose stool--however, less cramping and pain, as well as lesser frequency than days prior Physical Exam Constitutional: WD/WN, vitals as above Respiratory: normal respiratory effort, lungs clear to auscultation Cardiovascular: RRR, 2+ edema BLE Gastrointestinal (Abdomen): mild lower quadrant tenderness to deep palpation, but reports much improved from days prior Neurologic: PERRL, EOMI, accommodation nl, no face palsy, no dysarthria Results & Data Results & Data Vital Signs (Past 12 Hours) Vital Signs Temp Pulse Resp BP Pulse Ox O2 Del Method 03/14/24 05:00 37 C 83 20 118/57 L 95 Room Air 03/14/24 03:32 81 14 97 03/14/24 03:09 79 14 129/67 97 BiPAP 03/14/24 00:51 37 C 79 18 129/78 98 CPAP 03/14/24 00:00 80 03/13/24 22:26 84 16 100 03/13/24 22:14 37.1 C 82 18 133/87 Room Air 03/13/24 19:30 36.7 C Laboratory Results Short CBC 03/13/24 03/14/24 Range/Units 07:09 04:57 WBC 12.07 H 12.17 H (4.8-10.8) K/ul Hgb 8.4 L 7.6 L (12.0-16.0) g/dl Hct 24.2 L 22.2 L (37.0-47.0) % Plt Count 309 300 (130-400) K/uL BMP 03/13/24 03/14/24 07:09 04:57 Sodium 141 140 Potassium 3.3 L 3.7 Chloride 106 107 Carbon Dioxide 21 21 BUN 18 15 Creatinine 1.17 D 1.32 H Glucose 108 H 153 H Calcium 8.3 L 7.7 L Liver Function 03/14/24 Range/Units 04:57 Total Bilirubin 0.8 (0.2-1.0) mg/dl AST 21 (13-39) U/L ALT 18 (7-52) U/L Alkaline Phosphatase 52 (34-104) U/L Albumin 2.7 L (3.4-5.0) gm/dl Medications Administered Home Medications Medication Instructions Recorded Confirmed Last Taken albuterol sulfate 90 mcg/actuation 2 puff inhalation Q4 PRN .COUGH, 03/01/24 03/05/24 Unknown aerosol inhaler WHEEZING aspirin 81 mg tablet,delayed 81 mg PO QPM 03/01/24 03/05/24 Unknown release dextroamphetamine-amphetamine ER 20 mg PO DAILY PRN .. 03/01/24 03/05/24 Unknown 20 mg 24hr capsule,extend release fluoxetine 40 mg capsule 40 mg PO QPM 03/01/24 03/05/24 Unknown insulin aspart U-100 100 unit/mL 0 unit subcut DIRECTED 03/01/24 03/05/24 Unknown subcutaneous solution (Novolog U-100 Insulin aspart) losartan 50 mg tablet 50 mg PO QPM 03/01/24 03/05/24 Unknown lovastatin 40 mg tablet 40 mg PO QPM 03/01/24 03/05/24 Unknown multivitamin-ferrous 1 tab PO DAILY 03/01/24 03/05/24 Unknown fumarate-folic acid 18 mg-400 mcg tablet (Centrum Complete) ondansetron HCl 4 mg tablet 4 mg PO Q8 PRN Nausea 03/01/24 03/05/24 Unknown semaglutide 1 mg/dose (4 mg/3 mL) 1 mg subcut .QFRIDAY 03/01/24 03/05/24 02/24/24 subcutaneous pen injector (Ozempic) oxycodone-acetaminophen 5 mg-325 1 tab PO Q6H PRN pain #10 tabs 03/02/24 03/05/24 Unknown mg tablet cefdinir 300 mg capsule 300 mg PO BID 5 days #10 caps 03/03/24 03/05/24 Unknown Active Medications Generic Name Dose Route Start Last Admin Trade Name Freq PRN Reason Stop Dose Admin Acetaminophen 650 mg 03/06/24 08:56 03/07/24 13:52 Acetaminophen 325 Mg Tab PO 04/05/24 08:55 650 mg Q4H PRN Administration Pain or Fever Aspirin 81 mg 03/05/24 21:00 03/13/24 20:01 Aspirin 81 Mg Ectab PO 04/04/24 20:59 81 mg QPM KANDI Administration Docusate Sodium 100 mg 03/05/24 21:00 03/14/24 08:02 Docusate Sodium 100 Mg Cap PO 04/04/24 20:59 Not Given BID KANDI Fluoxetine HCl 40 mg 03/05/24 21:00 03/13/24 20:00 Fluoxetine Hcl 20 Mg Cap PO 04/04/24 20:59 40 mg QPM KANDI Administration Hydromorphone HCl 0.25 mg 03/12/24 17:18 03/12/24 19:07 Hydromorphone Inj 0.5 Mg/0.5 Ml Syr IV 03/26/24 17:17 0.25 mg Q6H PRN Administration Pain Acetaminophen 1,000 mg in 100 mls @ 400 mls/hr 03/11/24 13:30 03/14/24 06:32 Ofirmev IV 03/14/24 13:29 Infused Q8H KANDI Infusion Metronidazole 500 mg in 100 mls @ 100 mls/hr 03/13/24 16:30 03/14/24 09:27 Flagyl IV 03/16/24 16:29 Infused Q8H KADNI Infusion Protocol Cefepime HCl 2,000 mg/ Syringe 20 mls @ 5 mls/min 03/13/24 16:30 03/14/24 04:09 IV 03/16/24 04:33 5 mls/min Q12H KANDI Administration Protocol Insulin Aspart 0 units 03/11/24 16:30 03/14/24 08:14 Insulin Aspart Per Unit Charge SC 04/12/24 16:29 3 units ACHS KANDI Administration Insulin Glargine 8 units 03/12/24 16:30 03/13/24 17:02 Lantus Per Unit Charge SQ 04/09/24 20:59 8 units QDD KANDI Administration Lidocaine 1 patch 03/11/24 14:00 03/14/24 08:02 Lidocaine 5% 1 Patch TD 04/10/24 13:59 1 patch QAM KANDI Administration Lovastatin 40 mg 03/05/24 21:00 03/13/24 20:01 Lovastatin 20 Mg Tab PO 04/04/24 20:59 40 mg QPM KANDI Administration Miscellaneous 1 each 03/11/24 21:00 03/13/24 21:45 Remove Lidoderm Patch N/A 04/10/24 20:59 1 each DAILY@2100 KANDI Administration Ondansetron HCl 4 mg 03/05/24 19:59 03/10/24 21:13 Ondansetron Inj 2 Mg/Ml 2 Ml Vial IV 04/04/24 19:58 4 mg Q6H PRN Administration Nausea And Vomiting Oxycodone/Acetaminophen 1 tab 03/05/24 20:23 03/08/24 20:14 Oxycodone/Acetaminophen 5mg/325mg Tab PO 03/19/24 18:30 1 tab Q6H PRN Administration Mild-Mod Pain (Scale 1-6) Pantoprazole Sodium 40 mg 03/07/24 12:30 03/14/24 08:03 Pantoprazole 40 Mg Tab PO 04/06/24 12:29 40 mg QAM KANDI Administration Potassium Chloride 20 meq 03/13/24 21:00 03/14/24 08:03 Potassium Chloride Crtab 20 Meq Tabcr PO 04/12/24 20:59 20 meq BID KANDI Administration Potassium Phosphate 2 tab 03/08/24 13:00 03/14/24 08:01 Pot Phosphate Monobasic W/ Sod Tab PO 04/07/24 12:59 2 tab QID KANDI Administration Ticagrelor 90 mg 03/09/24 00:00 03/14/24 08:03 Ticagrelor 90 Mg Tab PO 09/22/24 00:00 90 mg BID KANDI Administration (2) Type 1 diabetes mellitus Diabetes mellitus complication status: with other specified complication Qualified Code(s): E10.69 - Type 1 diabetes mellitus with other specified complication (5) Acute renal failure Acute renal failure type: unspecified Qualified Code(s): N17.9 - Acute kidney failure, unspecified (6) Sepsis Acute renal failure type: unspecified Sepsis acute organ dysfunction status: with acute organ dysfunction Sepsis type: sepsis due to unspecified organism Severe sepsis acute organ dysfunction type: acute renal failure Severe sepsis shock status: with septic shock Qualified Code(s): A41.9 - Sepsis, unspecified organism; R65.21 - Severe sepsis with septic shock; N17.9 - Acute kidney failure, unspecified
[2024-03-14] MEDS: MAGNESIUM SULFATE / D5W 1 GM/100 ML BAG IV SCH (07:56)
[2024-03-14] MEDS: FUROSEMIDE INJ 20 MG/2 ML VIAL IV ONE ×2 (10:06)
--- NOTE | 2024-03-14 10:12 | Cardiology Progress Note ---
Date of Service March 14, 2024 Assessment & Plan (1) Hematoma: (2) Acute blood loss anemia: (3) Hydronephrosis: (4) Non-ST elevation ID (NSTEMI): (5) Status post insertion of drug-eluting stent into left anterior descending (LAD) artery: (6) Right ventricular dysfunction: (7) Acute renal failure: Plan 58-year-old female with history of DM-1 diagnosed at age 8, status post right and left heart catheterization with two drug-eluting stents placed in the mid left anterior descending artery 03/09/2024. Postprocedure patient suffered acute blood loss anemia, with CT evidence of intramuscular right rectus abdominis muscle and complex hyperdense fluid collection in the right pelvis. Hemoglobin stable overnight. [employer] pump discontinued 03/12/24, and pain is controlled. Patient on clear diet, s/p recent appendectomy, with noted watery diarrhea. * Continue ASA, Brilinta * Not on beta mitchell due to concerns of recent low BP and relatively low heart rates in the 60s 70s at baseline * Not on CHAPARRO inhibitor/ARB due to relatively low blood pressure during stay, is on losartan as an outpatient * Candidacy for BB and ACEI / ARB to be reassessed daily -hold off for now * Continue IV furosemide, 20 mg IV x 1 now (dose 3 on 03/14/24) * Potassium supplementation ordered * LDL cholesterol 38 mg /dl. * Continue lovastatin * Holding pharmacologic DVT prophylaxis due to acute blood loss anemia. * Will coordinate timing of removing Patterson with the rest of the care team. Admission and Anticipated Discharge Date Admission Date: March 05, 2024 Subjective Patient seen in follow up. , Artie, at the bedside. She is sitting in bedside chair. Continues to feel improved overall this am. Let abdominal pain. Still has LE edema, but improved. Patterson catheter remains in place draining blood tinged urine. Physical Exam Constitutional: well nourished; no acute distress Respiratory: normal respiratory effort; no respiratory distress, no labored breathing and no retractions Auscultation: + diminished lung sounds (Bases bilateral); no crackles, no rales, no rhonchi and no wheezes Cardiovascular: Rate/Rhythm: regular rate and regular rhythm Heart Sounds: normal S1, normal S2 and + murmur (1/6 mid systolic murmur heard at LSB) Vessels: femoral pulses present and radial pulses present; no JVD and no carotid bruit Extremities: + edema (1+ lower extremity edema, L leg slightly > R leg ) Gastrointestinal (Abdomen): Inspection/Auscultation: + abdomen distended and normal bowel sounds Percussion/Palpation: + abdomen tender and abdomen soft; no guarding and abdomen not rigid Neurologic: CN's II-XI intact bilaterally and moves all extremities; no focal motor deficits Results & Data Vital Signs (Past 12 Hours) Vital Signs Temp Pulse Resp BP Pulse Ox O2 Del Method 03/14/24 08:00 80 03/14/24 07:03 79 13 93 03/14/24 07:00 137/74 03/14/24 05:00 37 C 83 20 118/57 L 95 Room Air 03/14/24 03:32 81 14 97 03/14/24 03:09 79 14 129/67 97 BiPAP 03/14/24 00:51 37 C 79 18 129/78 98 CPAP 03/14/24 00:00 80 03/13/24 22:26 84 16 100 03/13/24 22:14 37.1 C 82 18 133/87 Room Air Laboratory Results Cardiac Enzymes 03/14/24 Range/Units 04:57 AST 21 (13-39) U/L CBC 03/14/24 Range/Units 04:57 WBC 12.17 H (4.8-10.8) K/ul RBC 2.39 L (4.20-5.40) M/uL Hgb 7.6 L (12.0-16.0) g/dl Hct 22.2 L (37.0-47.0) % Plt Count 300 (130-400) K/uL Neut # (Auto) 9.48 H (1.40-6.50) K/uL Lymph # (Auto) 1.23 (1.20-3.40) K/uL Brule # (Auto) 1.05 H (0.11-0.59) K/uL Eos # (Auto) 0.21 (0.00-0.50) K/uL Baso # (Auto) 0.03 (0.00-0.20) K/uL Comprehensive Metabolic Panel 03/14/24 Range/Units 04:57 Sodium 140 (136-145) mmol/L Potassium 3.7 (3.5-5.1) mmol/L Chloride 107 (98-107) mmol/L Carbon Dioxide 21 (21-32) mmol/L BUN 15 (6-23) mg/dl Creatinine 1.32 H (0.6-1.2) mg/dl Glucose 153 H (70-99(Fasting)) mg/dl Calcium 7.7 L (8.6-10.3) mg/dl AST 21 (13-39) U/L ALT 18 (7-52) U/L Alkaline Phosphatase 52 (34-104) U/L Total Protein 4.8 L (6.0-8.3) gm/dl Albumin 2.7 L (3.4-5.0) gm/dl Intake and Output 03/13/24 03/14/24 03/14/24 22:59 06:59 14:59 Intake Total 200 / 600 200 / 600 200 / 200 Output Total 535 / 1412 427 / 1412 Balance -335 / -812 -227 / -812 200 / 200 Intake: IV 200 / 600 200 / 600 200 / 200 Acetaminophen 1,000 mg In 100 100 / 400 100 / 400 ml @ 400 mls/hr IV Q8H [facility] Rx#: [id number] Magnesium Sulfate / D5w 1 gm In 100 / 100 100 ml @ 50 mls/hr IV Q2H KANDI Rx#:[id number] metroNIDAZOLE 500 mg In 100 ml 100 / 200 100 / 200 100 / 100 @ 100 mls/hr IV Q8H KANDI Rx#: [id number] Output: Urine/Stool Mix 2 / 2 Urine Amount (Catheter) 535 / 1410 425 / 1410 Patterson/Indwelling 535 / 1410 425 / 1410 Other: Weight 83 kg Weight Measurement Method Built in [facility] (7) Acute renal failure Acute renal failure type: unspecified Qualified Code(s): N17.9 - Acute kidney failure, unspecified
--- NOTE | 2024-03-14 11:38 | Surgery Progress Note ---
Date of Service March 14, 2024 Assessment & Plan (1) Non-ST elevation ND (NSTEMI): (2) Acute blood loss anemia: (3) Intra abdominal hemorrhage: Plan: She has remained HD stable on Brilinta and ASA for drug eluting stents. H/H relatively stable, afebrile and leukocytosis stable at 12k. She has been downgraded from the ICU, awaiting a bed on the floor. There is no indication for surgical interventions Recommend continuing to trend H/H. Currently stable Patient may advance diet as tolerated PT/OT SCDs Incentive spirometry Discussed with Dr. Fernandez who agrees with above. Admission and Anticipated Discharge Date Admission Date: March 05, 2024 Subjective feeling much better today minimal low abdominal pain, some discomfort with catheter tolerating food, no n,v bowels are still loose but improving no chest pain or shortness of breath no fevers or sweats worked with OT and PT, strength feels improving Physical Exam Constitutional: WD/WN, vitals as above cooperative and comfortable; no acute distress and not ill appearing Respiratory: normal respiratory effort, lungs clear to auscultation Cardiovascular: RRR, no murmur, no edema Gastrointestinal (Abdomen): Inspection/Auscultation: abdomen normal to inspection and + abdominal surgical incision (c/d/i with dermabond); abdomen not distended Percussion/Palpation: abdomen soft; abdomen nontender, no guarding, abdomen not rigid and abdomen not firm Skin: no rashes, warm and dry Psychiatric: A+Ox3, euthymic affect Results & Data Vital Signs (Past 12 Hours) Vital Signs Temp Pulse Resp BP Pulse Ox O2 Del Method 03/14/24 09:59 131/75 03/14/24 09:45 92 H 25 H 100 03/14/24 09:09 87 17 100 03/14/24 09:00 134/78 03/14/24 08:57 87 21 100 03/14/24 08:00 80 03/14/24 07:03 79 13 93 03/14/24 07:00 137/74 03/14/24 05:00 37 C 83 20 118/57 L 95 Room Air 03/14/24 03:32 81 14 97 03/14/24 03:09 79 14 129/67 97 BiPAP 03/14/24 00:51 37 C 79 18 129/78 98 CPAP 03/14/24 00:00 80 Laboratory Results 03/14/24 03/14/24 03/14/24 Range/Units Unknown 11:08 07:19 WBC (4.8-10.8) K/ul RBC (4.20-5.40) M/uL Hgb (12.0-16.0) g/dl Hct (37.0-47.0) % MCV (80.0-100.0) fL MCH (25.0-34.0) pg MCHC (32.0-36.0) g/dL RDW Std Deviation (36.4-46.3) fL RDW Coeff of Emma (11.5-14.5) % Plt Count (130-400) K/uL MPV (9.4-12.4) fL Immature Gran % (Auto) % Neut % (Auto) % Lymph % (Auto) % Baca % (Auto) % Eos % (Auto) % Baso % (Auto) % Neut # (Auto) (1.40-6.50) K/uL Lymph # (Auto) (1.20-3.40) K/uL Baca # (Auto) (0.11-0.59) K/uL Eos # (Auto) (0.00-0.50) K/uL Baso # (Auto) (0.00-0.20) K/uL Immature Gran # (Auto) (0.01-0.20) K/uL Absolute Nucleated RBC (0.00-0.12) K/uL Nucleated RBC % (auto) % Polychromasia Sodium (136-145) mmol/L Potassium (3.5-5.1) mmol/L Chloride (98-107) mmol/L Carbon Dioxide (21-32) mmol/L Anion Gap (3-11) BUN (6-23) mg/dl Creatinine (0.6-1.2) mg/dl Est Cr Clr Drug Dosing ml/min Est GFR ( Amer) ml/min Est GFR (Non-Af Amer) ml/min BUN/Creatinine Ratio (10-20) Glucose (70-99(Fasting)) mg/dl POC Glucose 282 H 178 H (70-99) mg/dl Calcium (8.6-10.3) mg/dl Phosphorus (2.5-4.9) mg/dl Magnesium (1.7-2.4) mg/dl Total Bilirubin (0.2-1.0) mg/dl AST (13-39) U/L ALT (7-52) U/L Alkaline Phosphatase (34-104) U/L Total Protein (6.0-8.3) gm/dl Albumin (3.4-5.0) gm/dl Globulin (2.5-4.0) gm/dl Albumin/Globulin Ratio (0.9-2) Stl C. diff Tox B Gene Pending 03/14/24 03/13/24 03/13/24 Range/Units 04:57 20:34 16:16 WBC 12.17 H (4.8-10.8) K/ul RBC 2.39 L (4.20-5.40) M/uL Hgb 7.6 L (12.0-16.0) g/dl Hct 22.2 L (37.0-47.0) % MCV 92.9 (80.0-100.0) fL MCH 31.8 (25.0-34.0) pg MCHC 34.2 (32.0-36.0) g/dL RDW Std Deviation 45.1 (36.4-46.3) fL RDW Coeff of Emma 15.9 H (11.5-14.5) % Plt Count 300 (130-400) K/uL MPV 10.2 (9.4-12.4) fL Immature Gran % (Auto) 1.4 % Neut % (Auto) 78.0 % Lymph % (Auto) 10.1 % Baca % (Auto) 8.6 % Eos % (Auto) 1.7 % Baso % (Auto) 0.2 % Neut # (Auto) 9.48 H (1.40-6.50) K/uL Lymph # (Auto) 1.23 (1.20-3.40) K/uL Baca # (Auto) 1.05 H (0.11-0.59) K/uL Eos # (Auto) 0.21 (0.00-0.50) K/uL Baso # (Auto) 0.03 (0.00-0.20) K/uL Immature Gran # (Auto) 0.17 (0.01-0.20) K/uL Absolute Nucleated RBC 0.04 (0.00-0.12) K/uL Nucleated RBC % (auto) 0.3 % Polychromasia 1+ Sodium 140 (136-145) mmol/L Potassium 3.7 (3.5-5.1) mmol/L Chloride 107 (98-107) mmol/L Carbon Dioxide 21 (21-32) mmol/L Anion Gap 12 H (3-11) BUN 15 (6-23) mg/dl Creatinine 1.32 H (0.6-1.2) mg/dl Est Cr Clr Drug Dosing 46.2 ml/min Est GFR ( Amer) 51.8 ml/min Est GFR (Non-Af Amer) 44.7 ml/min BUN/Creatinine Ratio 11.4 (10-20) Glucose 153 H (70-99(Fasting)) mg/dl POC Glucose 195 H 161 H (70-99) mg/dl Calcium 7.7 L (8.6-10.3) mg/dl Phosphorus 3.2 (2.5-4.9) mg/dl Magnesium 1.6 L (1.7-2.4) mg/dl Total Bilirubin 0.8 (0.2-1.0) mg/dl AST 21 (13-39) U/L ALT 18 (7-52) U/L Alkaline Phosphatase 52 (34-104) U/L Total Protein 4.8 L (6.0-8.3) gm/dl Albumin 2.7 L (3.4-5.0) gm/dl Globulin 2.1 L (2.5-4.0) gm/dl Albumin/Globulin Ratio 1.3 (0.9-2) Stl C. diff Tox B Gene
--- NOTE | 2024-03-14 12:15 | Urology Progress Note ---
Date of Service March 14, 2024 Assessment & Plan (1) Hydronephrosis: (2) Hematoma: Plan 58-year-old female admitted to the ICU s/p Appendectomy with significant post op issues with readmission. Underwent cardiac catheterization for NSTEMI and is s/p LAD stent x 2. Became hypotensive with severe abdominal pain and a CT abdomen pelvis was done which showed 10 cm pelvic hematoma vs rectus sheath hematoma with significant shift to the left of bladder and right sided hydronep hrosis. Underwent transfusion due to ABLA. Initially required pressors. Improved with volume and transfusion. Stabilized and underwent bilateral stent placement and catheter placement due to obstruction from mass effect from large hematoma. POD#5 s/p cystoscopy bilateral stent and catheter placement Afebrile with stable vitals. Remains in ICU. Labs today reviewedcreatinine 1.32, WBC 12.17, hemoglobin 7.6. Patterson intact and draining clear urine in tubing. Maintain bilateral ureteral stents. Okay to remove Patterson catheter for voiding trial. Recommend replace catheter if she is unable to void. Continue supportive care, trend labs, and monitoring. Will arrange outpatient f/u with our service to discuss stent removal after she has had repeat imaging. will sign off, please contact our service with any additional questions or concerns. Admission and Anticipated Discharge Date Admission Date: March 05, 2024 Subjective Patient seen and examined at bedside She is awake and sitting up eating lunch present via phone call Feeling better overall Tolerating stents Patterson with clear urine No fevers Review of Systems Constitutional: as per Subjective / HPI Genitourinary: as per Subjective / HPI Physical Exam Constitutional: no acute distress Respiratory: normal respiratory effort; no respiratory distress and no labored breathing Gastrointestinal (Abdomen): Inspection/Auscultation: abdomen normal to inspection Musculoskeletal: Head/Neck/Chest: normocephalic Neurologic: moves all extremities and awake Psychiatric: Orientation: alert and oriented x 3 Results & Data Vital Signs (Past 12 Hours) Vital Signs Temp Pulse Resp BP Pulse Ox O2 Del Method 03/14/24 09:59 131/75 03/14/24 09:45 92 H 25 H 100 03/14/24 09:09 87 17 100 03/14/24 09:00 134/78 03/14/24 08:57 87 21 100 03/14/24 08:00 80 03/14/24 07:03 79 13 93 03/14/24 07:00 137/74 03/14/24 05:00 37 C 83 20 118/57 L 95 Room Air 03/14/24 03:32 81 14 97 03/14/24 03:09 79 14 129/67 97 BiPAP 03/14/24 00:51 37 C 79 18 129/78 98 CPAP PG Care Time/CCT Total # of Minutes Spent Total Time Spent with Patient: Total time spent is greater than 50% in coordination of care (as documented) at patient's floor/unit and/or counseling patient: Coding Level of Care Code 86172 SUB INP/OBS CARE 08/11MIN Diagnoses Hydronephrosis N13.30 Hematoma T14.8XXA
--- NOTE | 2024-03-14 15:00 | Pharmacy Report ---
Pharmacy Glycemic Short Note 2 - Date of Service March 14, 2024 - Glycemic Short BSG Results (Last 24 hours): 03/13/24 03/13/24 03/14/24 16:16 20:34 04:57 Glucose 153 H POC Glucose 161 H 195 H 03/14/24 03/14/24 07:19 11:08 Glucose POC Glucose 178 H 282 H OUTPATIENT ANTIDIABETIC REGIMEN: * Novolog Insulin Pump * Basal rate of 0.2 units/hr * HbA1c = 6.9% on 03/02/24 ASSESSMENT: 03/14: * Stressors stable * Patient was to be transitioned to pump yesterday, but then patient changed her mind. Talked w RN (Palak) again today - patient may not yet be ready/willing to transition. Will re-evaluate again tomorrow * CHO ratio tightened slightly today 2nd trend in post-prandial elevations 03/13: * BSG's ranged 155-171 mg/dL yesterday. Will lower goal range to provide slightly more correctional insulin * Stressors stable. Clear liq diet ordered this AM. Patient requested advancement in diet and now renal diet ordered for lunch. * Patient likely ready for transition back to pump. D/w RN (Palak) - patient has all supplies needed and is able/willing to transition back * Messaged Dr. Crespo and awaiting OK to transition back to home pump at dinner today (last dose of Lantus was dinner yesterday) - passed on to pharmacist (Nazia) for response / intervention 03/12: * Amanda received 10 units of insulin yesterday, 8 of which were basal. BSGs were: [phone] mg/dL. * Fasting was 155 mg/dL this AM. Patient ordered a clear liquid diet. She has not been having much PO intake thus far. Therefore, I am hesitant to resume patient's home insulin pump today. If PO intake improves tomorrow, may resume home pump. * BSGs have trended up throughout the day over the weekend. Therefore, will tighten correction factor slightly today. 03/10: * 58 y/o F admitted for shock, bilateral pleural effusions, peripheral edema. She has history of Type 1 diabetes, chronic kidney disease and interstitial lung disease. She also has an intra-abdominal hematoma and RO. Currently NPO. She was recently admitted for appendicitis and underwent surgery for this. * Patient's diabetes is managed with Novolog insulin pump at home. This is currently off due to high blood sugars last night. * Pharmacy consulted for glycemic management. Patient was given basal insulin based on stress of 1 last night. She is not on any steroids and NPO. BSGs trending downwards. Therefore, will continue with basal insulin stress of 1 dose again for tonight. * Novolog parameters ordered yesterday between and stress of 1 and 2 parameters and q4h checks. She received total of 3 units of bolus insulin yesterday. Goal range and correction factor tightened this morning. Pre-lunch BSG trended down to 148 mg/dl today. PLAN FOR INPATIENT GLYCEMIC CONTROL: * Basal insulin * Lantus 8 units SC QDD * Bolus insulin * NovoLog per scale q4h while NPO * Goal Range: Low 110 mg/dL - High 140 mg/dL * Correction Factor: 30 mg/dL/unit * Nutritional / Prandial insulin per carb ratio of 1 unit per 13 grams CHO consumed
--- NOTE | 2024-03-14 15:03 | Infectious Disease Consult ---
Date of Service March 14, 2024 Telehealth Information I performed this visit using a real-time telehealth connection between my location and the patients location ([facility]). After connecting through interactive tele-video, patient was identified by name and date of and/or wristband check.Patient (or authorized healthcare promotional representative) was informed that this was a telemedicine visit and it was being conducted confidentially over secure lines. My office door was closed and no o ne else was present in the room with me.Patient (or authorized healthcare promotional representative) provided consent to proceed with the visit, expressed an understanding of privacy and security of the telemedicine visit, and gave permission to have a hospital promotional representative in the room in order to assist with the visit and to conduct portions of the visit, as needed. I informed the patient (or authorized healthcare promotional representative) that I reviewed their record and presented the opportunity for them to ask any questions regarding the visit today. The patient agreed to participate. Assessment & Plan (1) Shock: Plan: The patient almost certainly never had sepsis. She had shock in the setting of fluid overload, right sided heart failure and NSTEMI with RO. Her CT imaging showed no pneumonia and drainage of her pleural effusion showed transudative findings. She did not have a UTI either. Prior to admission her UA was benign and she had no symptoms. She was given cefdinir as an outpatient and follow-up cultures and urine studies have also not shown any new or persistent infection. Her pelvic hematoma complicates her course and may be driving some of her WBC at this time. C diff negative for now, but a concern if she remains on prolonged abx. Plan Please stop both cefepime and metronidazole for now. No further ID work-up recommended for now. Recommend removal of the rader cath to help prevent future infections. ID will sign off for now. Please call with any questions or should her clinical course change. History of Present Illness History of Present Illness Mrs. Machuca is a 58yo female with a h/o DM and CKD. She initially presented to [facility] on 03/02/24 with a week-long h/o abdominal pain and malaise. CT imaging showed appendicitis and she underwent lap appy. She was then discharged home the next day with cefdinir for possible UTI, though she had no symptoms at the time. She then returned on 03/05/24 with shock, SOB and pain. She was diagnosed with sepsis and NSTEMI. She had fluid overload and RO. She required ICU placement with pressor and oxygen support. Her troponins peaked at 5633. She was placed empirically on cefepime and HSU because of her prior UTI diagnosis and concerns she could have pneumonia. She has no prior h/o pneumonia and is not a smoker. Her course was also complicated by need for draining a pleural effusion (transudative) and development of a pelvic hematoma leading to hydronephrosis and need for ureteral stent placement. She has slowly improved and has now been downgraded from ICU status to floor status. She is seen today, sitting up in a chair in her room and her is at the bedside, helping provide some of the history. She describes today as her "best day yet." No SOB or cough. Feels like she can take a deep breath without pain. She has some intermittent pelvic cramps. No N/V. She has had two loose bowel movements today, but no nausea. She had a hamburger for lunch today. No dysuria, but she still has a rader cath in place. No fevers. No rash. Allergies Allergy/AdvReac Type Severity Reaction Status Date / Time CHAPARRO Inhibitors Allergy Intermediate cough Verified 03/01/24 23:34 Penicillins Allergy Intermediate rash Verified 03/01/24 23:34 Home Medications Medication Instructions Recorded Confirmed Type albuterol sulfate 90 mcg/actuation 2 puff inhalation Q4 PRN .COUGH, 03/01/24 03/05/24 History aerosol inhaler WHEEZING aspirin 81 mg tablet,delayed 81 mg PO QPM 03/01/24 03/05/24 History release dextroamphetamine-amphetamine ER 20 mg PO DAILY PRN .. 03/01/24 03/05/24 History 20 mg 24hr capsule,extend release fluoxetine 40 mg capsule 40 mg PO QPM 03/01/24 03/05/24 History insulin aspart U-100 100 unit/mL 0 unit subcut DIRECTED 03/01/24 03/05/24 History subcutaneous solution (Novolog U-100 Insulin aspart) losartan 50 mg tablet 50 mg PO QPM 03/01/24 03/05/24 History lovastatin 40 mg tablet 40 mg PO QPM 03/01/24 03/05/24 History multivitamin-ferrous 1 tab PO DAILY 03/01/24 03/05/24 History fumarate-folic acid 18 mg-400 mcg tablet (Centrum Complete) ondansetron HCl 4 mg tablet 4 mg PO Q8 PRN Nausea 03/01/24 03/05/24 History semaglutide 1 mg/dose (4 mg/3 mL) 1 mg subcut .QFRIDAY 03/01/24 03/05/24 History subcutaneous pen injector (Ozempic) oxycodone-acetaminophen 5 mg-325 1 tab PO Q6H PRN pain #10 tabs 03/02/24 03/05/24 Rx mg tablet cefdinir 300 mg capsule 300 mg PO BID 5 days #10 caps 03/03/24 03/05/24 Rx Patient History Medical History Interstitial lung disease CKD (chronic kidney disease) stage 3, GFR 30-59 ml/min Cervical radiculopathy DM (diabetes mellitus), type 1 Surgical History Hx of eye surgery History of female sterilization History of carpal tunnel surgery Social History Smoking Status: Never smoker Second Hand Exposure: No; Do You Dip or Chew Tobacco: No; Hx Alcohol Use: Yes Alcohol type: wine Hx Substance Use: No Preferred Language: Ukrainian Communication Ability: Effective Survey Research Manager Required: No Beliefs That Will Affect Care: None Current Living Situation: Spouse Feels Safe at Home: Yes Assistive Devices: Other Review of Systems Gen- No fevers, feels generally weak HEENT- No FREEMAN, sore throat Resp- No SOB or chest pain today. No cough. CV- No chest pain. Still has a lot of swelling in her legs "havent been this swollen since giving 28 years ago." GI- No N/V, persisteent diarrhea. Appettite good. - Rader cath in place Skin- no rash MSK- No joint pain or swelling Neuro- no focal deficit Physical Exam Gen - NAD, sitting up in chair HEENT- NC AT, OP clear Neck- Normal ROM Resp- Normal respiratory rate on room air - Rader cath in place Skin- No rash Ext- 2+ edema Neuro- Alert, oriented Results & Data Vital Signs (Past 12 Hours) Vital Signs Temp Pulse Resp BP Pulse Ox Pulse Ox O2 Del Method 03/14/24 13:23 98 03/14/24 09:59 131/75 03/14/24 09:45 92 H 25 H 100 03/14/24 09:09 87 17 100 03/14/24 09:00 134/78 03/14/24 08:57 87 21 100 03/14/24 08:00 80 03/14/24 07:03 79 13 93 03/14/24 07:00 137/74 03/14/24 05:00 37 C 83 20 118/57 L 95 Room Air 03/14/24 03:32 81 14 97 03/14/24 03:09 79 14 129/67 97 BiPAP O2 Flow Rate 03/14/24 13:23 0 03/14/24 09:59 03/14/24 09:45 03/14/24 09:09 03/14/24 09:00 03/14/24 08:57 03/14/24 08:00 03/14/24 07:03 03/14/24 07:00 03/14/24 05:00 03/14/24 03:32 03/14/24 03:09 Laboratory Results WBC 12.08 --> peaking at 15.2 --> 12.17 today (76-78% polys) Hgb 7.6 Platelets 300 Creatinine 3.38 -> 1.32 (baseline) ALT 18, AST 21 Total bili 0.8 Procal 2.66 -> 0.74 UA with 11-20 WBC, 0-2 RBC, casts Pleural fluid: 436 WBC (19% polys), Protein <3.0, LDH [address] chest from 03/09 reviewed: atelectasis and pleural effusions Blood and urine cultures unremarkable CT abdomen-- Pelvic hematoma
[2024-03-14] MEDS: oxyCODONE/ACETAMINOPHEN 5mg/325mg TAB PO STA (22:34)
[2024-03-14] MEDS: oxyCODONE/ACETAMINOPHEN 5mg/325mg TAB PO ONE (22:35)
[2024-03-15 05:24] LABS: Hematocrit (blood only) 23.5 % (37.0-47.0); Mean Corpuscular Hemoglobin 32.4 pg (25.0-34.0); Mean Corpuscular Volume 95.1 fL (80.0-100.0); Mean Platelet Volume 10.1 fL (9.4-12.4); Nucleated RBC # (auto) 0.03 K/uL (0.00-0.12); Nucleated RBC % (auto) 0.2 %; Platelet Count 348 K/uL (130-400); RDW Coefficient of Variation 16.4 % (11.5-14.5); RDW Standard Deviation 46.9 fL (36.4-46.3); Red Blood Count 2.47 M/uL (4.20-5.40); White Blood Count 12.78 K/ul (4.8-10.8)
[2024-03-15 05:37] LABS: Albumin Globulin Ratio 1.3 (0.9-2); BUN Creatinine Ratio 11.5 (10-20); Bilirubin,Total 0.8 mg/dl (0.2-1.0); Calcium 7.9 mg/dl (8.6-10.3); Creatinine Clr Calc Pharmacy 45.6 ml/min; Est GFR (African American) 52.7 ml/min; Est GFR (Non-African American) 45.5 ml/min; Globulin 2.4 gm/dl (2.5-4.0); Potassium 3.5 mmol/L (3.5-5.1); Total Protein 5.4 gm/dl (6.0-8.3)
--- NOTE | 2024-03-15 07:04 | Hospitalist Progress Note ---
Date of Service March 15, 2024 Assessment & Plan (1) Shock: (2) Type 1 diabetes mellitus: (3) Non-ST elevation [place] (NSTEMI): (4) Acute respiratory failure with hypoxia: (5) Acute renal failure: (6) Sepsis: Plan Ms. Machuca is a 58yoF with PMHx significant for hypertension, hyperlipidemia, DM 1 on insulin pump, VAHE, CKD (baseline creatinine 1.3), ADHD, anxiety/mood disorder, recent appendectomy on 03/02 with post-op hypotension admitted with N/V and continued weakness at home since discharge. Found to be in septic shock, acute hypoxic respiratory failure, fluid overload with pleural effusions, acute kidney injury and complicated UTI on admission. Patient with NSTEMI for which she underwent LHC on 03/09. She experienced back pain and CT imaging revealed pelvic hematoma/retroperitoneal bleed. Surgery consulted and patient monitored in ICU. Hematoma resulted in obstructive uropathy prompting bilateral stent placement in ureters. Patient with volume overload and undergoing IV diuersis. Patient clinically improving day by day and ambulating in room with roller walker. Dispo likely in 2-3 days. #Leukocytosis *resolving patient clinically improving, likely iso hematoma/retroperitoneal bleed afebrile discontinued abx as of 03/15 #Diarrhea possible multifactorial, aggressive bowel regimen scheduled days prior, on multiple PO replacements, as well as IV abx C Diff negative Hold bowel regimen #Acute heart failure with preserved EF #Anasarca Chest CTA noting " Mild cardiomegaly with evidence of fluid overload/congestive change" Also R>L pleural effusions, BNP reviewed 328 Echo on admission completed and reviewed: -No left ventricular regional wall motion abnormalities with borderline hyperdynamic LV function on echocardiogram. -Indirect evidence (septal flattening) of right ventricular pressure and volume overload noted. Cardiology consulted, appreciate recs -TTE repeated (limited) and noted large intracardiac shunt with injection of agitated saline contrast. -Recommending GENNARO for further evaluation, performed on 03/08 "RV dysfunction with acute decompensated heart failure secondary to untreated sleep apnea in the setting of volume overload." Sleep study referral as op -Monitor I's and O's, daily weight, GFR, and electrolytes. Continue with IV lasix 20mg IV daily per Cardiology Replace lytes K>4, mag >2 phos>3 #Acute on Chronic Kidney Disease #Obstructive Uropathy 2/2 pelvic hematoma s/p cystoscopy bilateral stent placement #Mild to moderate right hydroureteronephrosis Urology consulted -s/p bilateral stent placement and catheter placement for obstruction issues secondary to obstruction from large pelvic hematoma on 03/09 Cr baseline of 1.3, was elevated at 1.82 3 days ago Cr 3.38-->3.12-->2.05-->1.39 Pt fluid overloaded in setting of acute HFpEF Received 2L of fluids in the ED, will defer on further fluids at this time Continue to hold home losartan Avoid nephrotoxic agents Nephrology consulted, appreciate recs. Recommended/Stated the following: -daily bmp -continue strict I/O; agree w/ cautiously starting diet; no fluid limit indicated Cr at baseline 1.32 today, monitor closely iso diuresis Urology recommends void trial at any time prior to dispo, with plans to replace if void trial fails #Acute Retroperitoneal Bleed s/p LHC on 03/09 #Pelvic Hematoma #Acute Blood Loss anemia Hematoma and retroperitoneal bleed noted on CT abd/pelvis on 03/09 Pt's hgb dropped to 7.1 from 9.2 hours earlier s/p transfusion 2U pRBCs, per Cardiology transfuse to keep hgb >8 in setting of recent NSTEMI s/p stent placement Continue aspirin and Brilinta in setting of cardiac stent placement on 03/09 If pt's status worsening, consider CTA abd/pelvis and transfer to tertiary care -attempts made for [place] on 03/09 [place] [facility] [place] advised conservative management at this time. -Remains stable and clinically improving General surgery consulted, appreciate recs -Conservative management, no surgical intervention at this time -Continue IS -PT/OT: likely HH Trend hgb daily Plan for repeat imaging in 4-6 weeks, or sooner if patient decompensates #NSTEMI #Severe coronary artery disease s/p CHI to LAD s/p cardiac cath on 03/09, with placement of 2 stents in LAD -continue with aspirin and Brillinta -continue statin #Acute hypoxic respiratory Failure, multifactorial *resolved #Bilateral Pleural Effusions, s/p thoracentesis Had oxygen requirement as high as 10L on admission, currently on RA Chest xray noting pleural effusions, 2/2 acute HFpEF Chest CTA with no PE. Notes R>L pleural effusions Respiratory panel negative VBG reviewed Oxygen supplementation as needed, wean as tolerated Likely in setting of pleural effusions, possible pneumonia Pulmonology consulted, appreciate recommendations -s/p R sided thoracentesis on 03/06, transudative, 1000ml removed Recurrent pleural effusions, undergoing IV diuresis at this time IS #Severe sepsis/Septic Shock *resolved #Complicated UTI *resolved Pt with leukocytosis, tachypnea, hypotension WBC 12.08 and downtrending Was being treated for a UTI at home with po cefdinir, urine cx grew pansensitive klebsiella Lactate wnl Procal elevated at 2.66 Chest imaging with possible pneumonia CT abd/pelvis with no abscess or acute infectious abnormality in post op setting UA with noted improvement from prior, repeat urine Cx with no significant growth. Postop incisions do not appear infected Blood Cx x1 set NGTD discontinued abx #History of Appendicitis s/p appendectomy on 03/02 with General surgery Post op hypotension that resolved with fluids, postop hypoxia and RO as above. Stable #DMI On Insulin pump at home Glycemic consult was placed and pt has been off her home pump Resume insulin pump as tolerated #HypotensionResolved Likely in setting of bleeding/acute blood loss anemia above Required pressor support in the ICU Transfused blood and weaned pressors as tolerated CODE STATUS: Full code DVT prophylaxis: SCDs Diet: advancing diet as tolerated Dispo: no cardiac arrhythmias, stable overall transferred to med surg Admission and Anticipated Discharge Date Admission Date: March 05, 2024 Subjective No acute events overnight Reports feeling well over all, denies any abdominal pain or other concerns States that she is urinating well without rader, denies any dizziness/chest pain Still some hematuria but no clots Physical Exam Constitutional: WD/WN, vitals as above Respiratory: normal respiratory effort, lungs clear to auscultation Chest (Breasts): Additional Comments: rrr 2+ BLE edema Neurologic: PERRL, EOMI, accommodation nl, no face palsy, no dysarthria Results & Data Results & Data Vital Signs (Past 12 Hours) Vital Signs Temp Pulse Resp BP Pulse Ox O2 Del Method 03/15/24 04:00 37 C 75 14 118/71 98 CPAP 03/15/24 03:00 81 16 98 03/15/24 00:00 77 03/14/24 23:25 82 20 98 03/14/24 22:10 37.2 C 80 14 127/75 98 Room Air 03/14/24 20:00 CPAP Laboratory Results Short CBC 03/15/24 Range/Units 04:42 WBC 12.78 H (4.8-10.8) K/ul Hgb 8.0 L (12.0-16.0) g/dl Hct 23.5 L (37.0-47.0) % Plt Count 348 (130-400) K/uL BMP 03/15/24 04:42 Sodium 140 Potassium 3.5 Chloride 105 Carbon Dioxide 28 BUN 15 Creatinine 1.30 H Glucose 89 Calcium 7.9 L Liver Function 03/15/24 Range/Units 04:42 Total Bilirubin 0.8 (0.2-1.0) mg/dl AST 21 (13-39) U/L ALT 18 (7-52) U/L Alkaline Phosphatase 58 (34-104) U/L Albumin 3.0 L (3.4-5.0) gm/dl Medications Administered Home Medications Medication Instructions Recorded Confirmed Last Taken albuterol sulfate 90 mcg/actuation 2 puff inhalation Q4 PRN .COUGH, 03/01/24 03/05/24 Unknown aerosol inhaler WHEEZING aspirin 81 mg tablet,delayed 81 mg PO QPM 03/01/24 03/05/24 Unknown release dextroamphetamine-amphetamine ER 20 mg PO DAILY PRN .. 03/01/24 03/05/24 Unknown 20 mg 24hr capsule,extend release fluoxetine 40 mg capsule 40 mg PO QPM 03/01/24 03/05/24 Unknown insulin aspart U-100 100 unit/mL 0 unit subcut DIRECTED 03/01/24 03/05/24 Unknown subcutaneous solution (Novolog U-100 Insulin aspart) losartan 50 mg tablet 50 mg PO QPM 03/01/24 03/05/24 Unknown lovastatin 40 mg tablet 40 mg PO QPM 03/01/24 03/05/24 Unknown multivitamin-ferrous 1 tab PO DAILY 03/01/24 03/05/24 Unknown fumarate-folic acid 18 mg-400 mcg tablet (Centrum Complete) ondansetron HCl 4 mg tablet 4 mg PO Q8 PRN Nausea 03/01/24 03/05/24 Unknown semaglutide 1 mg/dose (4 mg/3 mL) 1 mg subcut .QFRIDAY 03/01/24 03/05/24 02/24/24 subcutaneous pen injector (Ozempic) oxycodone-acetaminophen 5 mg-325 1 tab PO Q6H PRN pain #10 tabs 03/02/24 03/05/24 Unknown mg tablet cefdinir 300 mg capsule 300 mg PO BID 5 days #10 caps 03/03/24 03/05/24 Unknown Active Medications Generic Name Dose Route Start Last Admin Trade Name Freq PRN Reason Stop Dose Admin Acetaminophen 650 mg 03/06/24 08:56 03/14/24 20:23 Acetaminophen 325 Mg Tab PO 04/05/24 08:55 650 mg Q4H PRN Administration Pain or Fever Aspirin 81 mg 03/05/24 21:00 03/14/24 20:57 Aspirin 81 Mg Ectab PO 04/04/24 20:59 81 mg QPM KANDI Administration Docusate Sodium 100 mg 03/05/24 21:00 03/14/24 20:56 Docusate Sodium 100 Mg Cap PO 04/04/24 20:59 Not Given BID KANDI Fluoxetine HCl 40 mg 03/05/24 21:00 03/14/24 20:57 Fluoxetine Hcl 20 Mg Cap PO 04/04/24 20:59 40 mg QPM KANDI Administration Hydromorphone HCl 0.25 mg 03/12/24 17:18 03/12/24 19:07 Hydromorphone Inj 0.5 Mg/0.5 Ml Syr IV 03/26/24 17:17 0.25 mg Q6H PRN Administration Pain Insulin Aspart 0 units 03/11/24 16:30 03/14/24 20:54 Insulin Aspart Per Unit Charge SC 04/12/24 16:29 3 units ACHS KANDI Administration Insulin Glargine 8 units 03/12/24 16:30 03/14/24 17:42 Lantus Per Unit Charge SQ 04/09/24 20:59 8 units QDD KANDI Administration Lidocaine 1 patch 03/11/24 14:00 03/14/24 08:02 Lidocaine 5% 1 Patch TD 04/10/24 13:59 1 patch QAM KANDI Administration Lovastatin 40 mg 03/05/24 21:00 03/14/24 20:55 Lovastatin 20 Mg Tab PO 04/04/24 20:59 40 mg QPM KANDI Administration Miscellaneous 1 each 03/11/24 21:00 03/14/24 20:58 Remove Lidoderm Patch N/A 04/10/24 20:59 1 each DAILY@2100 KANDI Administration Ondansetron HCl 4 mg 03/05/24 19:59 03/10/24 21:13 Ondansetron Inj 2 Mg/Ml 2 Ml Vial IV 04/04/24 19:58 4 mg Q6H PRN Administration Nausea And Vomiting Oxycodone/Acetaminophen 1 tab 03/05/24 20:23 03/08/24 20:14 Oxycodone/Acetaminophen 5mg/325mg Tab PO 03/19/24 18:30 1 tab Q6H PRN Administration Mild-Mod Pain (Scale 1-6) Pantoprazole Sodium 40 mg 03/07/24 12:30 03/14/24 08:03 Pantoprazole 40 Mg Tab PO 04/06/24 12:29 40 mg QAM KANDI Administration Potassium Chloride 20 meq 03/13/24 21:00 03/14/24 20:57 Potassium Chloride Crtab 20 Meq Tabcr PO 04/12/24 20:59 20 meq BID KANDI Administration Ticagrelor 90 mg 03/09/24 00:00 03/14/24 20:56 Ticagrelor 90 Mg Tab PO 04/08/24 00:00 90 mg BID KANDI Administration (2) Type 1 diabetes mellitus Diabetes mellitus complication status: with other specified complication Qualified Code(s): E10.69 - Type 1 diabetes mellitus with other specified complication (5) Acute renal failure Acute renal failure type: unspecified Qualified Code(s): N17.9 - Acute kidney failure, unspecified (6) Sepsis Acute renal failure type: unspecified Sepsis acute organ dysfunction status: with acute organ dysfunction Sepsis type: sepsis due to unspecified organism Severe sepsis acute organ dysfunction type: acute renal failure Severe sepsis shock status: with septic shock Qualified Code(s): A41.9 - Sepsis, unspecified organism; R65.21 - Severe sepsis with septic shock; N17.9 - Acute kidney failur e, unspecified
--- NOTE | 2024-03-15 10:58 | Cardiology Progress Note ---
Date of Service March 15, 2024 Assessment & Plan (1) Hematoma: (2) Acute blood loss anemia: (3) Hydronephrosis: (4) Non-ST elevation [place] (NSTEMI): (5) Status post insertion of drug-eluting stent into left anterior descending (LAD) artery: (6) Right ventricular dysfunction: (7) Acute renal failure: Plan 58-year-old female with history of DM-1 diagnosed at age 8, status post right and left heart catheterization with two drug-eluting stents placed in the mid left anterior descending artery 03/09/2024. Postprocedure patient suffered acute blood loss anemia, with CT evidence of intramuscular right rectus abdominis muscle and complex hyperdense fluid collection in the right pelvis. Hemoglobin stable overnight. [employer]ISTANT pump discontinued 03/12/24, and pain is controlled. Patient on clear diet, s/p recent appendectomy, with noted watery diarrhea. * Continue ASA, Brilinta * Not on beta mitchell due to concerns of recent low BP and relatively low heart rates in the 60s 70s at baseline * Not on CHAPARRO inhibitor/ARB due to relatively low blood pressure during stay, is on losartan as an outpatient * Candidacy for BB and ACEI / ARB to be reassessed daily -hold off for now * Continue IV furosemide, 20 mg IV x 1 now (dose 4 on 03/15/24) * Potassium supplementation ordered * LDL cholesterol 38 mg /dl. * Continue lovastatin * Holding pharmacologic DVT prophylaxis due to acute blood loss anemia. * Increase activity as tolerated. Admission and Anticipated Discharge Date Admission Date: March 05, 2024 Subjective Patient seen in cardiology follow-up. Notes her stool was more formed today. Abdominal discomfort improved. Patterson catheter removed. Pain well-controlled. Telemetry reveals sinus rhythm in the 80s. Physical Exam Constitutional: well nourished; no acute distress Respiratory: normal respiratory effort; no respiratory distress, no labored breathing and no retractions Auscultation: + diminished lung sounds (Bases bilateral); no crackles, no rales, no rhonchi and no wheezes Cardiovascular: Rate/Rhythm: regular rate and regular rhythm Heart Sounds: normal S1, normal S2 and + murmur (1/6 mid systolic murmur heard at LSB) Vessels: femoral pulses present and radial pulses present; no JVD and no carotid bruit Extremities: + edema (1+ lower extremity edema, L leg slightly > R leg ) Gastrointestinal (Abdomen): Inspection/Auscultation: + abdomen distended and normal bowel sounds Percussion/Palpation: + abdomen tender and abdomen soft; no guarding and abdomen not rigid Neurologic: CN's II-XI intact bilaterally and moves all extremities; no focal motor deficits Results & Data Vital Signs (Past 12 Hours) Vital Signs Temp Pulse Resp BP Pulse Ox O2 Del Method 03/15/24 04:00 37 C 75 14 118/71 98 CPAP 03/15/24 03:00 81 16 98 03/15/24 00:00 77 03/14/24 23:25 82 20 98 (7) Acute renal failure Acute renal failure type: unspecified Qualified Code(s): N17.9 - Acute kidney failure, unspecified
[2024-03-15] MEDS: FUROSEMIDE INJ 20 MG/2 ML VIAL IV ONE (12:11)
[2024-03-15] MEDS: ACETAMINOPHEN 1,000 MG/100 ML VIAL IV STA (20:59)
--- NOTE | 2024-03-15 21:21 | Electrocardiogram Report ---
Test Reason : Blood Pressure : */* mmHG Vent. Rate : 82 BPM Atrial Rate : 82 BPM P-R Int : 136 ms QRS Dur : 120 ms QT Int : 406 ms P-R-T Axes : 11 65 20 degrees QTcB Int : 474 ms Normal sinus rhythm Low voltage QRS Right bundle branch block T wave abnormality, consider anterior ischemia Abnormal ECG When compared with ECG of 06-Mar-2024 09:03, No significant change Confirmed by Michael Downey ([id number]) on 03/15/2024 9:21:35 PM Referred By: REFERRED SELF Confirmed By: Michael Downey
--- NOTE | 2024-03-16 10:06 | Pharmacy Report ---
Pharmacy Glycemic Short Note 2 - Date of Service March 16, 2024 - Glycemic Short BSG Results (Last 24 hours): 03/15/24 03/15/24 03/15/24 11:30 16:40 20:58 POC Glucose 176 H 213 H 187 H 03/16/24 07:40 POC Glucose 271 H OUTPATIENT ANTIDIABETIC REGIMEN: * Novolog Insulin Pump * Basal rate of 0.2 units/hr * HbA1c = 6.9% on 03/02/24 ASSESSMENT: 03/16: * Amanda received 22 units of insulin yesterday (8 were basal) * Discussed glycemic mangagement with Dr. Sommer this morning, plan to transition back to pump to assist with discharge planning. If discharging before dinner today, patient will need to restart pump at 1630 once at home. * Fasting BSG this AM elevated, has been stable on current Lantus dose, will plan to trend and adjust if continued on SQ regimen. * No changes to Novolog at this time, no glycemic stressors noted. 03/14: * Stressors stable * Patient was to be transitioned to pump yesterday, but then patient changed her mind. Talked w RN (Palak) again today - patient may not yet be ready/willing to transition. Will re-evaluate again tomorrow * CHO ratio tightened slightly today 2nd trend in post-prandial elevations 03/13: * BSG's ranged 155-171 mg/dL yesterday. Will lower goal range to provide slightly more correctional insulin * Stressors stable. Clear liq diet ordered this AM. Patient requested advancement in diet and now renal diet ordered for lunch. * Patient likely ready for transition back to pump. D/w RN (Palak) - patient has all supplies needed and is able/willing to transition back * Messaged Dr. Crespo and awaiting OK to transition back to home pump at dinner today (last dose of Lantus was dinner yesterday) - passed on to pharmacist (Nazia) for response / intervention 03/12: * Amanda received 10 units of insulin yesterday, 8 of which were basal. BSGs were: [phone] mg/dL. * Fasting was 155 mg/dL this AM. Patient ordered a clear liquid diet. She has not been having much PO intake thus far. Therefore, I am hesitant to resume patient's home insulin pump today. If PO intake improves tomorrow, may resume home pump. * BSGs have trended up throughout the day over the weekend. Therefore, will tighten correction factor slightly today. 03/10: * 58 y/o F admitted for shock, bilateral pleural effusions, peripheral edema. She has history of Type 1 diabetes, chronic kidney disease and interstitial lung disease. She also has an intra-abdominal hematoma and RO. Currently NPO. She was recently admitted for appendicitis and underwent surgery for this. * Patient's diabetes is managed with Novolog insulin pump at home. This is currently off due to high blood sugars last night. * Pharmacy consulted for glycemic management. Patient was given basal insulin based on stress of 1 last night. She is not on any steroids and NPO. BSGs trending downwards. Therefore, will continue with basal insulin stress of 1 dose again for tonight. * Novolog parameters ordered yesterday between and stress of 1 and 2 parameters and q4h checks. She received total of 3 units of bolus insulin yesterday. Goal range and correction factor tightened this morning. Pre-lunch BSG trended down to 148 mg/dl today. PLAN FOR INPATIENT GLYCEMIC CONTROL: * Basal insulin * Lantus 8 units SC QDD * Bolus insulin * NovoLog per scale q4h while NPO * Goal Range: Low 110 mg/dL - High 140 mg/dL * Correction Factor: 30 mg/dL/unit * Nutritional / Prandial insulin per carb ratio of 1 unit per 13 grams CHO consumed
[2024-03-16 10:37] LABS: Hematocrit (blood only) 24.6 % (37.0-47.0); Hemoglobin 8.3 g/dl (12.0-16.0); Mean Corpuscular Hemoglobin 32.4 pg (25.0-34.0); Mean Corpuscular Hgb Conc 33.7 g/dL (32.0-36.0); Mean Corpuscular Volume 96.1 fL (80.0-100.0); Mean Platelet Volume 10.3 fL (9.4-12.4); Platelet Count 423 K/uL (130-400); RDW Standard Deviation 51.9 fL (36.4-46.3); Red Blood Count 2.56 M/uL (4.20-5.40); White Blood Count 11.03 K/ul (4.8-10.8)
[2024-03-16 11:04] LABS: BUN Creatinine Ratio 11.6 (10-20); Calcium 8.1 mg/dl (8.6-10.3); Creatinine Clr Calc Pharmacy 45.3 ml/min; Est GFR (African American) 53.2 ml/min; Est GFR (Non-African American) 45.9 ml/min; Magnesium 1.8 mg/dl (1.7-2.4); Phosphorus 1.8 mg/dl (2.5-4.9); Potassium 4.2 mmol/L (3.5-5.1)
[2024-03-16] MEDS: FUROSEMIDE INJ 20 MG/2 ML VIAL IV ONE (14:06)
--- NOTE | 2024-03-16 15:18 | Cardiology Progress Note ---
Date of Service March 16, 2024 Assessment & Plan (1) Hematoma: (2) Acute blood loss anemia: (3) Hydronephrosis: (4) Non-ST elevation [place] (NSTEMI): (5) Status post insertion of drug-eluting stent into left anterior descending (LAD) artery: (6) Right ventricular dysfunction: (7) Acute renal failure: Plan 58-year-old female with history of DM-1 diagnosed at age 8, status post right and left heart catheterization with two drug-eluting stents placed in the mid left anterior descending artery 03/09/2024. Postprocedure patient suffered acute blood loss anemia, with CT evidence of intramuscular right rectus abdominis muscle and complex hyperdense fluid collection in the right pelvis. Hemoglobin stable overnight. [employer]ED[employer]ING [employer]ER pump discontinued 03/12/24, and pain is controlled. Patient on clear diet, s/p recent appendectomy, with noted watery diarrhea. * Continue ASA, Brilinta * Not on beta mitchell due to concerns of recent low BP and relatively low heart rates in the 60s 70s at baseline * Not on CHAPARRO inhibitor/ARB due to relatively low blood pressure during stay, is on losartan as an outpatient * Candidacy for BB and ACEI / ARB to be reassessed daily -hold off for now * Continue IV furosemide, 20 mg IV x 1 now (dose 5 on 03/15/24) * Change to oral furosemide 20 mg PO daily. * LDL cholesterol 38 mg /dl. * Continue lovastatin * Holding pharmacologic DVT prophylaxis due to acute blood loss anemia. * Increase activity as tolerated. Admission and Anticipated Discharge Date Admission Date: March 05, 2024 Subjective Patient transferred out of the intensive care unit and is seen in room 308. She is accompanied by her . Feeling well. No complaints. Still with lower extremity edema. Upper extremity edema resolved. Abdominal pain continues to improve. Patient is now off telemetry so there is no telemetry to review. Physical Exam Constitutional: well nourished; no acute distress Respiratory: normal respiratory effort; no respiratory distress, no labored breathing and no retractions Auscultation: + diminished lung sounds (Bases bilateral); no crackles, no rales, no rhonchi and no wheezes Cardiovascular: Rate/Rhythm: regular rate and regular rhythm Heart Sounds: normal S1, normal S2 and + murmur (1/6 mid systolic murmur heard at LSB) Vessels: femoral pulses present and radial pulses present; no JVD and no carotid bruit Extremities: + edema (1-2+ lower extremity edema, L leg slightly > R leg ) Gastrointestinal (Abdomen): Inspection/Auscultation: + abdomen distended and normal bowel sounds Percussion/Palpation: + abdomen tender and abdomen soft; no guarding and abdomen not rigid Neurologic: CN's II-XI intact bilaterally and moves all extremities; no focal motor deficits Results & Data Vital Signs (Past 12 Hours) Vital Signs Temp Pulse Resp BP Pulse Ox O2 Del Method 03/16/24 08:07 36.8 C 87 16 133/80 100 Room Air (7) Acute renal failure Acute renal failure type: unspecified Qualified Code(s): N17.9 - Acute kidney failure, unspecified
[2024-03-16] MEDS ORDERED: SODIUM PHOSPHATE 3 MMOL/1 ML INFUSION IV STA (15:35)
--- NOTE | 2024-03-16 15:35 | Hospitalist Progress Note ---
Date of Service March 16, 2024 Assessment & Plan (1) Shock: (2) Type 1 diabetes mellitus: (3) Non-ST elevation [place] (NSTEMI): (4) Acute respiratory failure with hypoxia: (5) Acute renal failure: (6) Sepsis: Plan Ms. Machuca is a 58yoF with PMHx significant for hypertension, hyperlipidemia, DM 1 on insulin pump, VAHE, CKD (baseline creatinine 1.3), ADHD, anxiety/mood disorder, recent appendectomy on 03/02 with post-op hypotension admitted with N/V and continued weakness at home since discharge. Found to be in septic shock, acute hypoxic respiratory failure, fluid overload with pleural effusions, acute kidney injury and complicated UTI on admission. Patient with NSTEMI for which she underwent LHC on 03/09. She experienced back pain and CT imaging revealed pelvic hematoma/retroperitoneal bleed. Surgery consulted and patient monitored in ICU. Hematoma resulted in obstructive uropathy prompting bilateral stent placement in ureters. Patient with volume overload and undergoing IV diuersis. Course complicated further by COVID exposure 2/2 roomate in room switch. COVID negative. Plan to dispo tomorrow #Leukocytosis *resolving patient clinically improving, likely iso hematoma/retroperitoneal bleed afebrile discontinued abx as of 03/15 #Diarrhea possible multifactorial, aggressive bowel regimen scheduled days prior, on multiple PO replacements, as well as IV abx C Diff negative improving #Acute heart failure with preserved EF #Anasarca Chest CTA noting " Mild cardiomegaly with evidence of fluid overload/congestive change" Also R>L pleural effusions, BNP reviewed 328 Echo on admission completed and reviewed: -No left ventricular regional wall motion abnormalities with borderline hyperdynamic LV function on echocardiogram. -Indirect evidence (septal flattening) of right ventricular pressure and volume overload noted. Cardiology consulted, appreciate recs -TTE repeated (limited) and noted large intracardiac shunt with injection of agitated saline contrast. -Recommending GENNARO for further evaluation, performed on 03/08 "RV dysfunction with acute decompensated heart failure secondary to untreated sleep apnea in the setting of volume overload." Sleep study referral as op -Monitor I's and O's, daily weight, GFR, and electrolytes. Continue with IV lasix 20mg IV daily per Cardiology Plan to transition to PO lasix daily Replace lytes K>4, mag >2 phos>3 #Acute on Chronic Kidney Disease #Obstructive Uropathy 2/2 pelvic hematoma s/p cystoscopy bilateral stent placement #Mild to moderate right hydroureteronephrosis Urology consulted -s/p bilateral stent placement and catheter placement for obstruction issues secondary to obstruction from large pelvic hematoma on 03/09 Cr baseline of 1.3, was elevated at 1.82 3 days ago Cr 3.38-->3.12-->2.05-->1.39 Pt fluid overloaded in setting of acute HFpEF Received 2L of fluids in the ED, will defer on further fluids at this time Continue to hold home losartan Avoid nephrotoxic agents Nephrology consulted, appreciate recs. Recommended/Stated the following: -daily bmp -continue strict I/O; agree w/ cautiously starting diet; no fluid limit indicated #Acute Retroperitoneal Bleed s/p LHC on 03/09 #Pelvic Hematoma #Acute Blood Loss anemia Hematoma and retroperitoneal bleed noted on CT abd/pelvis on 03/09 Pt's hgb dropped to 7.1 from 9.2 hours earlier s/p transfusion 2U pRBCs, per Cardiology transfuse to keep hgb >8 in setting of recent NSTEMI s/p stent placement Continue aspirin and Brilinta in setting of cardiac stent placement on 03/09 If pt's status worsening, consider CTA abd/pelvis and transfer to tertiary care -attempts made for transfer on 03/09 to [facility], advised conservative management at this time. -Remains stable and clinically improving General surgery consulted, appreciate recs -Conservative management, no surgical intervention at this time -Continue IS Trend hgb daily Plan for repeat imaging in 4-6 weeks, or sooner if patient decompensates #NSTEMI #Severe coronary artery disease s/p CHI to LAD s/p cardiac cath on 03/09, with placement of 2 stents in LAD -continue with aspirin and Brillinta -continue statin #Acute hypoxic respiratory Failure, multifactorial *resolved #Bilateral Pleural Effusions, s/p thoracentesis Had oxygen requirement as high as 10L on admission, currently on RA Chest xray noting pleural effusions, 2/2 acute HFpEF Chest CTA with no PE. Notes R>L pleural effusions Respiratory panel negative VBG reviewed Oxygen supplementation as needed, wean as tolerated Likely in setting of pleural effusions, possible pneumonia Pulmonology consulted, appreciate recommendations -s/p R sided thoracentesis on 03/06, transudative, 1000ml removed Recurrent pleural effusions, undergoing IV diuresis at this time IS #Severe sepsis/Septic Shock *resolved #Complicated UTI *resolved Pt with leukocytosis, tachypnea, hypotension WBC 12.08 and downtrending Was being treated for a UTI at home with po cefdinir, urine cx grew pansensitive klebsiella Lactate wnl Procal elevated at 2.66 Chest imaging with possible pneumonia CT abd/pelvis with no abscess or acute infectious abnormality in post op setting UA with noted improvement from prior, repeat urine Cx with no significant growth. Postop incisions do not appear infected Blood Cx x1 set NGTD discontinued abx #History of Appendicitis s/p appendectomy on 03/02 with General surgery Post op hypotension that resolved with fluids, postop hypoxia and RO as above. Stable #DMI On Insulin pump at home Glycemic consult was placed and pt has been off her home pump Resume insulin pump this evening #HypotensionResolved Likely in setting of bleeding/acute blood loss anemia above Required pressor support in the ICU Transfused blood and weaned pressors as tolerated CODE STATUS: Full code DVT prophylaxis: SCDs Diet: advancing diet as tolerated Dispo: no cardiac arrhythmias, stable overall transferred to med surg Admission and Anticipated Discharge Date Admission Date: March 05, 2024 Subjective Patient and upset over COVID exposure, however, patient declines any symptoms at this time Patient denies any new concerns Physical Exam Constitutional: WD/WN, vitals as above Respiratory: normal respiratory effort, lungs clear to auscultation Cardiovascular: RRR, improve BLE edema Results & Data Results & Data Vital Signs (Past 12 Hours) Vital Signs Temp Pulse Resp BP Pulse Ox O2 Del Method 03/16/24 08:07 36.8 C 87 16 133/80 100 Room Air Laboratory Results Short CBC 03/16/24 Range/Units 10:19 WBC 11.03 H (4.8-10.8) K/ul Hgb 8.3 L (12.0-16.0) g/dl Hct 24.6 L (37.0-47.0) % Plt Count 423 H (130-400) K/uL BMP 03/16/24 10:19 Sodium 137 Potassium 4.2 Chloride 102 Carbon Dioxide 28 BUN 15 Creatinine 1.29 H Glucose 355 H* Calcium 8.1 L Medications Administered Home Medications Medication Instructions Recorded Confirmed Last Taken albuterol sulfate 90 mcg/actuation 2 puff inhalation Q4 PRN .COUGH, 03/01/24 03/05/24 Unknown aerosol inhaler WHEEZING aspirin 81 mg tablet,delayed 81 mg PO QPM 03/01/24 03/05/24 Unknown release dextroamphetamine-amphetamine ER 20 mg PO DAILY PRN .. 03/01/24 03/05/24 Unknown 20 mg 24hr capsule,extend release fluoxetine 40 mg capsule 40 mg PO QPM 03/01/24 03/05/24 Unknown insulin aspart U-100 100 unit/mL 0 unit subcut DIRECTED 03/01/24 03/05/24 Unknown subcutaneous solution (Novolog U-100 Insulin aspart) losartan 50 mg tablet 50 mg PO QPM 03/01/24 03/05/24 Unknown lovastatin 40 mg tablet 40 mg PO QPM 03/01/24 03/05/24 Unknown multivitamin-ferrous 1 tab PO DAILY 03/01/24 03/05/24 Unknown fumarate-folic acid 18 mg-400 mcg tablet (Centrum Complete) ondansetron HCl 4 mg tablet 4 mg PO Q8 PRN Nausea 03/01/24 03/05/24 Unknown semaglutide 1 mg/dose (4 mg/3 mL) 1 mg subcut .QFRIDAY 03/01/24 03/05/24 02/24/24 subcutaneous pen injector (Ozempic) oxycodone-acetaminophen 5 mg-325 1 tab PO Q6H PRN pain #10 tabs 03/02/24 03/05/24 Unknown mg tablet cefdinir 300 mg capsule 300 mg PO BID 5 days #10 caps 03/03/24 03/05/24 Unknown Active Medications Generic Name Dose Route Start Last Admin Trade Name Freq PRN Reason Stop Dose Admin Acetaminophen 650 mg 03/06/24 08:56 03/16/24 13:16 Acetaminophen 325 Mg Tab PO 04/05/24 08:55 650 mg Q4H PRN Administration Pain or Fever Aspirin 81 mg 03/05/24 21:00 03/15/24 20:29 Aspirin 81 Mg Ectab PO 04/04/24 20:59 81 mg QPM KANDI Administration Docusate Sodium 100 mg 03/05/24 21:00 03/16/24 08:33 Docusate Sodium 100 Mg Cap PO 04/04/24 20:59 Not Given BID KANDI Fluoxetine HCl 40 mg 03/05/24 21:00 03/15/24 20:30 Fluoxetine Hcl 20 Mg Cap PO 04/04/24 20:59 40 mg QPM KANDI Administration Hydromorphone HCl 0.25 mg 03/12/24 17:18 03/16/24 08:30 Hydromorphone Inj 0.5 Mg/0.5 Ml Syr IV 03/26/24 17:17 0.25 mg Q6H PRN Administration Pain Insulin Aspart 0 units 03/11/24 16:30 03/16/24 13:06 Insulin Aspart Per Unit Charge SC 03/16/24 16:29 10 units ACHS KANDI Administration Lidocaine 1 patch 03/11/24 14:00 03/16/24 08:33 Lidocaine 5% 1 Patch TD 04/10/24 13:59 1 patch QAM KANDI Administration Lovastatin 40 mg 03/05/24 21:00 03/15/24 20:30 Lovastatin 20 Mg Tab PO 04/04/24 20:59 40 mg QPM KANDI Administration Miscellaneous 1 each 03/11/24 21:00 03/15/24 20:31 Remove Lidoderm Patch N/A 04/10/24 20:59 1 each DAILY@2100 KANDI Administration Ondansetron HCl 4 mg 03/05/24 19:59 03/10/24 21:13 Ondansetron Inj 2 Mg/Ml 2 Ml Vial IV 04/04/24 19:58 4 mg Q6H PRN Administration Nausea And Vomiting Oxycodone/Acetaminophen 1 tab 03/05/24 20:23 03/08/24 20:14 Oxycodone/Acetaminophen 5mg/325mg Tab PO 03/19/24 18:30 1 tab Q6H PRN Administration Mild-Mod Pain (Scale 1-6) Pantoprazole Sodium 40 mg 03/07/24 12:30 03/16/24 08:33 Pantoprazole 40 Mg Tab PO 04/06/24 12:29 40 mg QAM KANDI Administration Potassium Chloride 20 meq 03/13/24 21:00 03/16/24 08:32 Potassium Chloride Crtab 20 Meq Tabcr PO 04/12/24 20:59 20 meq BID KANDI Administration Ticagrelor 90 mg 03/09/24 00:00 03/16/24 08:32 Ticagrelor 90 Mg Tab PO 04/08/24 00:00 90 mg BID KANDI Administration (2) Type 1 diabetes mellitus Diabetes mellitus complication status: with other specified complication Qualified Code(s): E10.69 - Type 1 diabetes mellitus with other specified complication (5) Acute renal failure Acute renal failure type: unspecified Qualified Code(s): N17.9 - Acute kidney failure, unspecified (6) Sepsis Acute renal failure type: unspecified Sepsis acute organ dysfunction status: with acute organ dysfunction Sepsis type: sepsis due to unspecified organism Severe sepsis acute organ dysfunction type: acute renal failure Severe sepsis shock status: with septic shock Qualified Code(s): A41.9 - Sepsis, unspecified organism; R65.21 - Severe sepsis with septic shock; N17.9 - Acute kidney failure, unspecified
[2024-03-16] MEDS: SODIUM PHOSPHATE 30 MMOL in SODIUM CHLORIDE 0.9% 500 ML IV SCH (16:10)
[2024-03-16] MEDS: traMADol HCL 50 MG TABLET PO PRN (16:18)
[2024-03-16] MEDS ORDERED: INSULIN ASPART 100 UNITS/ML VIAL SC PRN (16:30)
[2024-03-16] MEDS: INSULIN, Rapid-Acting PUMP SC SCH (17:42)
[2024-03-16 23:48] VITALS: TEMP 98.1
[2024-03-17 06:18] LABS: Hematocrit (blood only) 25.4 % (37.0-47.0); Hemoglobin 8.3 g/dl (12.0-16.0); Mean Corpuscular Hemoglobin 31.9 pg (25.0-34.0); Mean Corpuscular Hgb Conc 32.7 g/dL (32.0-36.0); Mean Corpuscular Volume 97.7 fL (80.0-100.0); Mean Platelet Volume 10.1 fL (9.4-12.4); Platelet Count 438 K/uL (130-400); RDW Coefficient of Variation 17.2 % (11.5-14.5); RDW Standard Deviation 60.2 fL (36.4-46.3); White Blood Count 10.38 K/ul (4.8-10.8)
[2024-03-17 07:53] VITALS: RESP 16; O2SAT 100
[2024-03-17] MEDS: FUROSEMIDE 20 MG TAB PO SCH (08:15)
--- NOTE | 2024-03-17 10:25 | Discharge Summary ---
Discharge Summary Date of Service March 17, 2024 Principal Dx & Hospital Course #1 = Principal Diagnosis (1) Shock: (2) Type 1 diabetes mellitus: (3) Non-ST elevation [place] (NSTEMI): (4) Acute respiratory failure with hypoxia: (5) Acute renal failure: (6) Sepsis: Plan Ms. Machuca is a 58yoF with PMHx significant for hypertension, hyperlipidemia, DM 1 on insulin pump, VAHE, CKD (baseline creatinine 1.3), ADHD, anxiety/mood diso rder, recent appendectomy on 03/02 with post-op hypotension admitted with N/V and continued weakness at home since discharge. Found to be in septic shock, acute hypoxic respiratory failure, fluid overload with pleural effusions, acute kidney injury and complicated UTI on admission. Patient with NSTEMI for which she underwent LHC on 03/09. She experienced back pain and CT imaging revealed pelvic hematoma/retroperitoneal bleed. Surgery consulted and patient monitored in ICU. Hematoma resulted in obstructive uropathy prompting bilateral stent placement in ureters. Patient with volume overload and undergoing IV diuersis. Course complicated further by COVID exposure 2/2 roomate in room switch. COVID negative On day of discharge, patient denied any acute concerns, was eating well and amb ulating without assistance. #Leukocytosis *resolved patient clinically improving, likely iso hematoma/retroperitoneal bleed afebrile discontinued abx as of 03/15 #Diarrhea possible multifactorial, aggressive bowel regimen scheduled days prior, on multiple PO replacements, as well as IV abx C Diff negative resolved #Acute heart failure with preserved EF #Anasarca Chest CTA noting " Mild cardiomegaly with evidence of fluid overload/congestive change" Also R>L pleural effusions, BNP reviewed 328 Echo on admission completed and reviewed: -No left ventricular regional wall motion abnormalities with borderline hyperdynamic LV function on echocardiogram. -Indirect evidence (septal flattening) of right ventricular pressure and volume overload noted. Cardiology consulted, appreciate recs -TTE repeated (limited) and noted large intracardiac shunt with injection of agitated saline contrast. -Recommending GENNARO for further evaluation, performed on 03/08 "RV dysfunction with acute decompensated heart failure secondary to untreated sleep apnea in the setting of volume overload." Sleep study referral as op -Monitor I's and O's, daily weight, GFR, and electrolytes. Required 5 days of IV diuersis Transitioned to PO lasix 20mg daily with 20meq potassium on dc Labs in 1 week #Acute on Chronic Kidney Disease #Obstructive Uropathy 2/2 pelvic hematoma s/p cystoscopy bilateral stent placement #Mild to moderate right hydroureteronephrosis Urology consulted -s/p bilateral stent placement and catheter placement for obstruction issues secondary to obstruction from large pelvic hematoma on 03/09 Cr baseline of 1.3, was elevated at 1.82 3 days ago Cr 3.38-->3.12-->2.05-->1.39 Pt fluid overloaded in setting of acute HFpEF Received 2L of fluids in the ED, will defer on further fluids at this time Continue to hold home losartan Avoid nephrotoxic agents Nephrology consulted, appreciate recs. Recommended/Stated the following: -daily bmp -continue strict I/O; agree w/ cautiously starting diet; no fluid limit ind icated #Acute Retroperitoneal Bleed s/p LHC on 03/09 #Pelvic Hematoma #Acute Blood Loss anemia Hematoma and retroperitoneal bleed noted on CT abd/pelvis on 03/09 Pt's hgb dropped to 7.1 from 9.2 hours earlier s/p transfusion 2U pRBCs, per Cardiology transfuse to keep hgb >8 in setting of recent NSTEMI s/p stent placement Continue aspirin and Brilinta in setting of cardiac stent placement on 03/09 If pt's status worsening, consider CTA abd/pelvis and transfer to tertiary care -attempts made for transfer on 03/09 to [place] and [facility], advised conservative management at this time. -Remains stable and clinically improving General surgery consulted, appreciate recs -Conservative management, no surgical intervention at this time -Continue IS Trend hgb daily Plan for repeat imaging in 4-6 weeks, or sooner if patient decompensates #NSTEMI #Severe coronary artery disease s/p CHI to LAD s/p cardiac cath on 03/09, with placement of 2 stents in LAD -continue with aspirin and Brillinta -continue statin #Acute hypoxic respiratory Failure, multifactorial *resolved #Bilateral Pleural Effusions, s/p thoracentesis Had oxygen requirement as high as 10L on admission, currently on RA Chest xray noting pleural effusions, 2/2 acute HFpEF Chest CTA with no PE. Notes R>L pleural effusions Respiratory panel negative VBG reviewed Oxygen supplementation as needed, wean as tolerated Likely in setting of pleural effusions, possible pneumonia Pulmonology consulted, appreciate recommendations -s/p R sided thoracentesis on 03/06, transudative, 1000ml removed Recurrent pleural effusions, undergoing IV diuresis at this time IS #Severe sepsis/Septic Shock *resolved #Complicated UTI *resolved Pt with leukocytosis, tachypnea, hypotension WBC 12.08 and downtrending Was being treated for a UTI at home with po cefdinir, urine cx grew pansensitive klebsiella Lactate wnl Procal elevated at 2.66 Chest imaging with possible pneumonia CT abd/pelvis with no abscess or acute infectious abnormality in post op setting UA with noted improvement from prior, repeat urine Cx with no significant growth. Postop incisions do not appear infected Blood Cx x1 set NGTD discontinued abx #History of Appendicitis s/p appendectomy on 03/02 with General surgery Post op hypotension that resolved with fluids, postop hypoxia and RO as above. Stable #DMI On Insulin pump at home Glycemic consult was placed and pt has been off her home pump Resume insulin pump this evening #HypotensionResolved Likely in setting of bleeding/acute blood loss anemia above Required pressor support in the ICU Transfused blood and weaned pressors as tolerated Notes For Next Care Provider Labs in 1 week to check BMP Will required CT AB/P to assess pelvic hematoma resolution between 04/05-04/16 Medication Changes From Visit PO lasix 20mg daily 20meq potassium ASA 81mg daily Brilinta 90mg bid Stop Losartan Admission HPI Per Admitting Provider Pt is a 58yoF with PMHx significant for hypertension, hyperlipidemia, DM 1 on insulin pump, VAHE, CKD (baseline creatinine 1.3), ADHD, anxiety/mood disorder, recent appendectomy 3 days ago with post-op hypotension presenting with N/V and continued weakness at home since discharge. History obtained from pt and partner in the room. States that she was tolerating a diet on discharge but soon developed N/V and generalized weakness upon return home. Per partner, tried encouraging her to sit up and take her medications but it got to the point where she just could not. Took her blood pressure at home and states that it was very low. They state they contacted their surgeon's office who advised going to the ED for further evaluation. Pt denies dyspnea or SOB. Denies chest pain. States she does note dizziness when she tries to get up to use the bathroom. Abdomen gas tender postop with lots of nausea and vomiting. Partner notes coughing fits at home as well. Admission Exam Per Admitting Provider General: Alert, oriented. No acute distress, NC in nares Skin: No noted rashes or bruises Psych: Appropriate mood and affect HEENT: NC/AT, NC in nares CV: RRR Resp: Breath sounds clear bilaterally, no increased effort of breathing Abdomen: Soft, nontender Extremities: No edema in lower extremities bilaterally. Discharge Exam Constitutional WD/WN, vitals as above Respiratory normal respiratory effort, lungs clear to auscultation Cardiovascular RRR, bilateral lower extremity edema 1+ Neurologic PERRL, EOMI, accommodation nl, no face palsy, no dysarthria Updated Medication List Medication Instructions Recorded Confirmed Type albuterol sulfate 90 mcg/actuation 2 puff inhalation Q4 PRN .COUGH, 03/01/24 03/05/24 History aerosol inhaler WHEEZING aspirin 81 mg tablet,delayed 81 mg PO QPM 03/01/24 03/05/24 History release dextroamphetamine-amphetamine ER 20 mg PO DAILY PRN .. 03/01/24 03/05/24 History 20 mg 24hr capsule,extend release fluoxetine 40 mg capsule 40 mg PO QPM 03/01/24 03/05/24 History insulin aspart U-100 100 unit/mL 0 unit subcut DIRECTED 03/01/24 03/05/24 History subcutaneous solution (Novolog U-100 Insulin aspart) lovastatin 40 mg tablet 40 mg PO QPM 03/01/24 03/05/24 History multivitamin-ferrous 1 tab PO DAILY 03/01/24 03/05/24 History fumarate-folic acid 18 mg-400 mcg tablet (Centrum Complete) ondansetron HCl 4 mg tablet 4 mg PO Q8 PRN Nausea 03/01/24 03/05/24 History semaglutide 1 mg/dose (4 mg/3 mL) 1 mg subcut .QFRIDAY 03/01/24 03/05/24 History subcutaneous pen injector (Ozempic) oxycodone-acetaminophen 5 mg-325 1 tab PO Q6H PRN pain #10 tabs 03/02/24 03/05/24 Rx mg tablet furosemide 20 mg tablet 20 mg PO QAM #30 tabs 03/17/24 Rx pantoprazole 40 mg tablet,delayed 40 mg PO QAM #30 tabs 03/17/24 Rx release potassium chloride 20 mEq 20 meq PO QAM #30 tabs 03/17/24 Rx tablet,extended release(part/cryst) ticagrelor 90 mg tablet (Brilinta) 90 mg PO BID #60 tabs 03/17/24 Rx Hospital Stay Data Consultations 03/05/24 16:21 Consult Nephrology Routine 03/05/24 16:23 Consult Pulmonology Routine 03/05/24 16:44 Consult Cardiology Routine 03/05/24 16:49 ED Decision to Admit Stat 03/05/24 17:41 Consult Picking Crew Supervisor Routine 03/07/24 09:40 Consult Anesthesiology Routine 03/10/24 09:28 Consult General Surgery Routine 03/12/24 16:30 Consult Pulmonology Routine 03/13/24 16:23 Consult Infectious Diseases Routine Procedures Performed Operation Date: 03/09/24 19:30 Actual Procedures p Cystoscopy, Retrograde Pyelogram, Bilateral Ureteral Stent Insertion(Bilateral) - Slick Burch, Diagnostic Imagining Performed 03/05/24 14:41 CT abd pelvis IV con only Stat CT angio chest PE protocol Stat 03/06/24 09:55 US point of care ultrasound Urgent 03/09/24 FL retrograde includes kub Routine 03/09/24 07:15 CL Cath Imgs for PACS use only Routine 03/09/24 11:53 CT Abdomen and Pelvis [CT abd pelvis wo con] Stat 03/09/24 21:11 CT Abd and Pelvis [CT abd pelvis wo con] Stat 03/09/24 22:00 CT chest diagnostic wo con Stat Pending Results Patient Have Any Pending Studies at Discharge: No Discharge Instructions Given to Patient (Per Discharging Provider) You were admitted for management for post-operative hypotension and thought to be in septic shock. You were found to have acute heart failure and a heart blockage. You underwent left heart catheterization in which a stent was placed. This was complicated by a bleed in the pelvis. After close monitoring, your blood levels remained stable. You were managed further with IV diuretic to help the fluid balance and swelling in your legs. You kidney function continued to improve as well. You do not require further antibiotics. For your heart, you will need to continue the following: -Aspirin 81 mg daily -Brilinta 90mg two times a day These are necessary for your stent You were started on the following for swelling/fluid management: -Lasix 20mg daily -Potassium 20meq daily You will need to follow up in 1 week for a BMP (lab draw) to monitor your kidneys and potassium levels. Please discontinue losartan 50mg. Please follow up with Cardiology as directed Please follow up with Urology as directed You will need a repeat CT scan in 3-4 weeks, the order is to be placed by your PCP. Total Time Total Time Spent Total Time Spent (In Minutes): 45
[2024-03-17 10:49] VITALS: BP 133/80; PULSE 72
== END 2024-03-17 12:13 | disposition home health service (06) | DRG 853 ==
LOC: ED 12:35 → SUATTDRO 17:41 → 1E 17:41 → 2S 03-07 17:23 → 1E 03-09 12:19 → 3N 03-15 14:32 → 3E 03-15 19:05
DX: I13.0 Hypertensive heart and chronic kidney disease with heart failure and stage 1 through stage 4 chronic kidney disease, or unspecified chronic kidney disease; K66.1 Hemoperitoneum; K68.3 Retroperitoneal hematoma; I25.10 Atherosclerotic heart disease of native coronary artery without angina pectoris; Y92.230 Patient room in hospital as the place of occurrence of the external cause; Y84.0 Cardiac catheterization as the cause of abnormal reaction of the patient, or of later complication, without mention of misadventure at the time of the procedure; Z20.822 Contact with and (suspected) exposure to COVID-19; N13.30 Unspecified hydronephrosis; Z79.899 Other long term (current) drug therapy; A41.9 Sepsis, unspecified organism; R57.0 Cardiogenic shock; R18.8 Other ascites; I95.81 Postprocedural hypotension; B96.1 Klebsiella pneumoniae [K. pneumoniae] as the cause of diseases classified elsewhere; J96.01 Acute respiratory failure with hypoxia; K35.30 Acute appendicitis with localized peritonitis, without perforation or gangrene; Z79.82 Long term (current) use of aspirin; N18.30 Chronic kidney disease, stage 3 unspecified; J90 Pleural effusion, not elsewhere classified; I50.31 Acute diastolic (congestive) heart failure; N13.8 Other obstructive and reflux uropathy; D62 Acute posthemorrhagic anemia; R65.21 Severe sepsis with septic shock; I50.811 Acute right heart failure; J98.11 Atelectasis; Z79.4 Long term (current) use of insulin; Z88.0 Allergy status to penicillin; I21.4 Non-ST elevation (NSTEMI) myocardial infarction; N17.0 Acute kidney failure with tubular necrosis; Z79.85 Long-term (current) use of injectable non-insulin antidiabetic drugs; Z96.41 Presence of insulin pump (external) (internal); F90.9 Attention-deficit hyperactivity disorder, unspecified type; I97.610 Postprocedural hemorrhage of a circulatory system organ or structure following a cardiac catheterization; N39.0 Urinary tract infection, site not specified; Z98.890 Other specified postprocedural states

== ENCOUNTER 2024-03-30 15:37 | Inpatient (IN) ==
[2024-03-30 16:30] LABS: Basophils # (auto) 0.06 K/uL (0.00-0.20); Basophils % (auto) 0.7 %; Eosinophils # (auto) 0.45 K/uL (0.00-0.50); Hematocrit (blood only) 28.7 % (37.0-47.0); Hemoglobin 9.7 g/dl (12.0-16.0); Immature Granulocytes # (auto) 0.05 K/uL (0.01-0.20); Immature Granulocytes % (auto) 0.6 %; Lymphocytes % (auto) 15.7 %; Mean Corpuscular Hgb Conc 33.8 g/dL (32.0-36.0); Mean Corpuscular Volume 97.6 fL (80.0-100.0); Mean Platelet Volume 10.3 fL (9.4-12.4); Monocytes # (auto) 0.81 K/uL (0.11-0.59); Monocytes % (auto) 9.1 %; Neutrophils # (auto) 6.17 K/uL (1.40-6.50); Neutrophils % (auto) 68.9 %; Platelet Count 487 K/uL (130-400); RDW Coefficient of Variation 15.9 % (11.5-14.5); RDW Standard Deviation 56.7 fL (36.4-46.3); Red Blood Count 2.94 M/uL (4.20-5.40); White Blood Count 8.94 K/ul (4.8-10.8)
--- NOTE | 2024-03-30 16:43 | XRay Report ---
XR chest 1V portable CLINICAL HISTORY: Chest pain, nonspecific TECHNIQUE: Single frontal radiograph of the chest was obtained. Comparison: Comparison is made to chest radiograph 03/13/2024 FINDINGS: No lines and tubes are seen. The cardiomediastinal silhouette is normal. The lungs are clear. No evid ence of pleural effusion or pneumothorax. IMPRESSION: No acute chest disease. ACT 112: Negative or not required by law. Electronically signed by: Live Medel M.D. 03/30/2024 4:42 PM
--- NOTE | 2024-03-30 16:45 | Emergency Department Note ---
Impression & Plan Hypotension, ARF (acute renal failure), Fever, Anemia, UTI (urinary tract infection) ED Provider Note NAME: PASHA CARVER AGE: 58 SEX: F : 1965 ARRIVES VIA: Walk-In INFORMANT: [Patient] ED PROVIDER(S): [Km Holly MD] CHIEF COMPLAINT: Hypotension HISTORY OF PRESENT ILLNESS: The patient is a 58-year-old female who presents to the ER with fatigue, low- grade fever and hypotension. The patient recent was in our hospital for sepsis, MD, retroperitoneal hematoma and actually required bilateral ureteral stenting while in the hospital. She was discharged 2 weeks ago. She was doing well up until this morning. The patient did notice that when she stands to do anything, she has palpitations. That was new today as well. The patient denies any respiratory complaints. No shortness of breath or cough. She has occasionally noticed some blood in her urine but that has really been since the stents were placed. She states that she has been having ongoing flank pain and bilateral lower groin pain since the stents were placed. PMHx/PSHx/Social Hx: See Below PHYSICAL EXAM: GENERAL: Patient is in no acute distress. HEENT: No acute trauma, normocephalic atraumatic, mucous membranes moist, no nasal congestion. NECK: No stridor, no adenopathy, no meningismus, trachea is midline. LUNGS: Clear to auscultation bilaterally, no wheeze, no rhonchi, breath sounds equal. HEART: Subtle systolic murmur heard best at the right sternal border, regular rate and rhythm. ABDOMEN: Soft, nontender, no peritonitis. EXTREMITIES: No cyanosis, full range of motion of all the joints without pain or difficulty. NEUROLOGIC: Oriented x 3, no acute motor or sensory deficits, no focal weakness. SKIN: No jaundice, no diaphoresis. DIFFERENTIAL DIAGNOSIS: Pneumonia bronchitis, viral illness, UTI, sepsis or bacteremia, abscess, among others. EMERGENCY DEPARTMENT PROCEDURES: MEDICAL DECISION MAKING: There is no leukocytosis. The patient is anemic however, this has been baseline as of late. Platelet count slightly elevated. No coagulopathy. There was some mild acute renal failure with a creatinine of 1.65. No electrolyte abnormality in need of emergent correction. Lactic acid level was not elevated making severe sepsis less likely. No worrisome liver enzyme elevation. ECG showed a sinus rhythm, no ischemia. Cardiac enzyme testing x 1 is not consistent with acute cardiac injury. There was no concerning liver enzyme elevation. Urinalysis does suggest infection. COVID, influenza and RSV test were negative. Chest film did not show pneumonia or CHF. Abdominal and pelvis CT showed the ureteral stents to be in position. The findings of hematoma have improved. The patient presents with a fever and hypotension. She was recently in the hospital for sepsis. The patient was aggressively managed. She received 1 L of IV saline. She received IV cefepime as antibiotic coverage. She was given IV Tylenol. The patient is blood pressure has improved with the care mentioned above. Given her recent history, given her findings today, hospitalization is indicated I did speak with the patient, I spoke with case management, the on-call hospitalist was consulted. Prior/Outside records/notes reviewed: Discharge summary note from 03/17/2024 describing her presentation, hospital care and plan at discharge. ECG per my interpretation: Indication was hypotension. The ECG shows a normal sinus rhythm with a rate of 92. Patient has inverted T waves across the anterior leads. There is no ST elevation, no PVCs. The QTc is 445. Compared an ECG from 14 March 2024, criteria for a right bundle-branch block is not currently present. Continuous Cardiac Monitoring per my interpretation: An order was placed for continuous cardiac monitoring. The monitor shows a rate of 87 with normal sinus rhythm. Imaging/x-ray results per my interpretation: Chest x-ray does not show CHF, pneumonia or pneumothorax. Chronic Medical/Social conditions affecting care: Recent hospitalization for sepsis. Care/Management discussed with: Case management, the on-call hospitalist. Level of care consideration(s): After review of the information above and other included data: --I believe the patient requires escalation of care to admission Critical Care Note: I have personally spent 42 minutes of critical care time in the direct management of this patient. This includes bedside care, interpretation of diagnostic studies, and testing, discussion with consultants, patient, and family members, and other required patient management activities. This 42 minutes is in excess of all separately billable procedures. DISPOSITION: Admitted Past Med/Surg History Problem List (Updated 03/31/24 @ 12:34 by Km Holly MD) UTI (urinary tract infection) (Acute) Anemia (Acute) Fever (Acute) ARF (acute renal failure) (Acute) Hypotension (Acute) Pelvic hematoma, female Hypotension S/P ureteral stent placement Abdominal pain Bilateral pleural effusion Intra abdominal hemorrhage Acute blood loss anemia Status post insertion of drug-eluting stent into left anterior descending (LAD) artery Hematoma Hydronephrosis CAD (coronary artery disease) Hypertension Acute right-sided heart failure Pleural effusion Pulmonary hypertension Shock Type 1 diabetes mellitus (Acute) Right ventricular dysfunction (Acute) Non-ST elevation MD (NSTEMI) (Acute) Acute respiratory failure with hypoxia (Acute) Acute renal failure (Acute) Sepsis (Acute) UTI due to Klebsiella species Acute kidney injury Acute appendicitis (Acute) COVID-19 (Acute) Neck muscle spasm (Acute) Intractable pain (Acute) Alcoholic intoxication (Acute) Encounter for medication refill (Acute) Encounter for medication refill (Acute) Medical History Interstitial lung disease CKD (chronic kidney disease) stage 3, GFR 30-59 ml/min Cervical radiculopathy DM (diabetes mellitus), type 1 Surgical History Hx of eye surgery History of female sterilization History of carpal tunnel surgery Social History Smoking Status: Never smoker Second Hand Exposure: No; Do You Dip or Chew Tobacco: No; Hx Alcohol Use: Yes Alcohol type: wine Hx Substance Use: No Preferred Language: Kyrgyz Communication Ability: Effective Marketing Recruiter Required: No Beliefs That Will Affect Care: None Current Living Situation: Spouse Other Information That Helps Us Care for You: No Feels Safe at Home: Yes Safety Concerns: Feels Safe At This Time Assistive Devices: None Allergies Allergies Allergy/AdvReac Type Severity Reaction Status Date / Time CHAPARRO Inhibitors Allergy Intermediate cough Verified 03/01/24 23:34 Penicillins Allergy Intermediate rash Verified 03/01/24 23:34 Home Meds Home Medications Medication Instructions Recorded Confirmed albuterol sulfate 90 mcg/actuation 2 puff inhalation Q4 PRN .COUGH, 03/01/24 03/30/24 aerosol inhaler WHEEZING aspirin 81 mg tablet,delayed 81 mg PO QPM 03/01/24 03/30/24 release dextroamphetamine-amphetamine ER 20 mg PO DAILY .. 08/15/24 09/13/24 20 mg 24hr capsule,extend release fluoxetine 40 mg capsule 40 mg PO QPM 03/01/24 03/30/24 insulin aspart U-100 100 unit/mL 0 unit subcut DIRECTED 03/01/24 03/30/24 subcutaneous solution (Novolog U-100 Insulin aspart) lovastatin 40 mg tablet 40 mg PO QPM 03/01/24 03/30/24 multivitamin-ferrous 1 tab PO DAILY 03/01/24 03/30/24 fumarate-folic acid 18 mg-400 mcg tablet (Centrum Complete) ondansetron HCl 4 mg tablet 4 mg PO Q8 PRN Nausea 03/01/24 03/30/24 semaglutide 1 mg/dose (4 mg/3 mL) 1 mg subcut .QFRIDAY 03/01/24 03/30/24 subcutaneous pen injector (Ozempic) Previous Rx's Medication Instructions Recorded oxycodone-acetaminophen 5 mg-325 1 tab PO Q6H PRN pain #10 tabs 03/02/24 mg tablet furosemide 20 mg tablet 20 mg PO QAM #30 tabs 03/17/24 pantoprazole 40 mg tablet,delayed 40 mg PO QAM #30 tabs 03/17/24 release potassium chloride 20 mEq 20 meq PO QAM #30 tabs 03/17/24 tablet,extended release(part/cryst) ticagrelor 90 mg tablet (Brilinta) 90 mg PO BID #60 tabs 03/17/24 tramadol 50 mg tablet 50 mg PO Q4H PRN pain #30 tabs 03/17/24 Results & Data (ED) Vital Signs Vital Signs - 24 hr 03/30/24 15:42 03/30/24 15:47 03/30/24 16:41 Temperature 37.7 C H Temperature Source Oral Pulse Rate 95 H 87 Pulse Rate [Left] Pulse Rate from SpO2 Sensor Pulse Rhythm [Left] Pulse Strength [Left] Respiratory Rate 18 Respiratory Effort / Characteristics Non-Labored Spontaneous Respiratory Depth Normal Respiratory Pattern Regular Blood Pressure 89/55 L Blood Pressure [Left Arm] Blood Pressure Mean 66 Blood Pressure Mean [Left Arm] Blood Pressure Position Sitting Pulse Oximetry 100 Oxygen Delivery Method Room Air Room Air Sepsis Recent Fever Within 48 Hours Yes Sepsis New/Unexplained Change in Mental Status No Sepsis Action Taken by Nursing No Action Required 03/30/24 17:06 03/30/24 19:00 03/30/24 20:39 Temperature Temperature Source Pulse Rate 84 84 Pulse Rate [Left] 79 Pulse Rate from SpO2 Sensor 84 Pulse Rhythm [Left] Regular Pulse Strength [Left] Normal Respiratory Rate 12 20 Respiratory Effort / Characteristics Non-Labored Spontaneous Respiratory Depth Normal Respiratory Pattern Blood Pressure 133/84 Blood Pressure [Left Arm] 137/77 Blood Pressure Mean 100 Blood Pressure Mean [Left Arm] 97 Blood Pressure Position Pulse Oximetry 99 99 Oxygen Delivery Method Room Air Room Air Sepsis Recent Fever Within 48 Hours Sepsis New/Unexplained Change in Mental Status Sepsis Action Taken by [facility] Medications Current Medication List: was personally reviewed by pa Laboratory Data Attestation: I reviewed the patient's lab results. 03/31/24 05:42 03/31/24 05:42 Lab Results 03/30/24 03/30/24 03/30/24 Range/Units 16:00 16:15 17:19 WBC 8.94 (4.8-10.8) K/ul RBC 2.94 L (4.20-5.40) M/uL Hgb 9.7 L (12.0-16.0) g/dl Hct 28.7 L (37.0-47.0) % MCV 97.6 (80.0-100.0) fL MCH 33.0 (25.0-34.0) pg MCHC 33.8 (32.0-36.0) g/dL RDW Std Deviation 56.7 H (36.4-46.3) fL RDW Coeff of Emma 15.9 H (11.5-14.5) % Plt Count 487 H (130-400) K/uL MPV 10.3 (9.4-12.4) fL Immature Gran % (Auto) 0.6 % Neut % (Auto) 68.9 % Lymph % (Auto) 15.7 % Braxton % (Auto) 9.1 % Eos % (Auto) 5.0 % Baso % (Auto) 0.7 % Neut # (Auto) 6.17 (1.40-6.50) K/uL Lymph # (Auto) 1.40 (1.20-3.40) K/uL Braxton # (Auto) 0.81 H (0.11-0.59) K/uL Eos # (Auto) 0.45 (0.00-0.50) K/uL Baso # (Auto) 0.06 (0.00-0.20) K/uL Immature Gran # (Auto) 0.05 (0.01-0.20) K/uL PT 10.5 (9.0-12.0) Seconds INR 1.0 (0.9-1.1) APTT 26 (21-31) Seconds PTT Ratio 1.0 Sodium 136 (136-145) mmol/L Potassium 4.2 (3.5-5.1) mmol/L Chloride 101 (98-107) mmol/L Carbon Dioxide 25 (21-32) mmol/L Anion Gap 10 (3-11) BUN 26 H (6-23) mg/dl Creatinine 1.65 H (0.6-1.2) mg/dl Est Cr Clr Drug Dosing Not Reportable Est GFR ( Amer) 39.5 ml/min Est GFR (Non-Af Amer) 34.1 ml/min BUN/Creatinine Ratio 15.8 (10-20) Glucose 242 H (70-99(Fasting)) mg/dl Lactate 1.9 (0.4-2.0) mmol/L Calcium 9.4 (8.6-10.3) mg/dl Magnesium 1.8 (1.7-2.4) mg/dl Total Bilirubin 0.7 (0.2-1.0) mg/dl AST 17 (13-39) U/L ALT 9 (7-52) U/L Alkaline Phosphatase 77 (34-104) U/L Troponin I High Sens 11.6 (0-14) pg/ml Total Protein 7.1 (6.0-8.3) gm/dl Albumin 3.7 (3.4-5.0) gm/dl Globulin 3.4 (2.5-4.0) gm/dl Albumin/Globulin Ratio 1.1 (0.9-2) Procalcitonin 0.24 (0-0.5) ng/ml Urine Color Red Urine Appearance Turbid A (Clear) Urine pH 7.5 (4.5-7.5) Ur Specific [place] 1.018 (1.000-1.030) Urine Protein 2+ H (Negative) Urine Glucose (UA) Trace H (Negative) Urine Ketones Negative (Negative) Urine Blood 3+ H (Negative) Urine Nitrite Negative (Negative) Urine Bilirubin Negative (Negative) Urine Urobilinogen Positive H (Negative) Ur Leukocyte Esterase 3+ H (Negative) Urine WBC (Auto) >50 H (0-5) /hpf Urine RBC (Auto) >20 H (0-2) /hpf U Hyaline Cast (Auto) 0-2 (0-2) /lpf U Epithel Cells (Auto) 0-2 (0-2) /hpf Urine Bacteria (Auto) 1+ H (None Seen) SARS-CoV-2 (PCR) NEGATIVE (Negative) Influenza Type A (PCR) Negative (Neg) Influenza Type B (PCR) Negative (Neg) RSV (RT-PCR) Negative (Neg) Administered Medications Amphetamine/Dextroamphetamine (Dextroamphetamine/Amphetamine Er 20 Mg Cap) 20 mg PO DAILY KANDI Stop: 04/14/24 08:59 Last Admin: 03/31/24 08:39 Dose: Not Given Documented By: PIERRE Heparin Sodium (Porcine) (Heparin Sod 5,000 Unit/0.5 Ml Vial) 5,000 units SQ Q12 KANDI Stop: 04/29/24 22:42 Last Admin: 03/31/24 08:21 Dose: 5,000 units Documented By: Admin: 03/30/24 23:16 Dose: 5,000 units Documented By: ENIO Cefepime HCl 2,000 mg/ Syringe 20 mls @ 5 mls/min IV Q12H KANDI; Protocol Stop: 04/10/24 05:59 Last Admin: 03/31/24 05:49 Dose: 5 mls/min Documented By: ENIO Insulin Aspart (Insulin, Rapid-Acting Pump) 1 each N/A ACHS [facility]; Protocol Stop: 04/30/24 07:29 Last Admin: 03/31/24 12:19 Dose: 1 each Documented By: PIERRE Co-signed By: Admin: 03/31/24 08:12 Dose: 1 each Documented By: PIERRE Co-signed By: Miscellaneous (Continuous Glucose Monitor) 0 each N/A ACHS [facility] Stop: 04/30/24 07:29 Last Admin: 03/31/24 12:19 Dose: 1 each Documented By: Admin: 03/31/24 08:12 Dose: 1 each Documented By: PIERRE Multivitamins/Minerals (Cerovite Adv Formula Tab) 1 tab PO DAILY KANDI Stop: 04/30/24 08:59 Last Admin: 03/31/24 08:12 Dose: 1 tab Documented By: PIERRE Pantoprazole Sodium (Pantoprazole 40 Mg Tab) 40 mg PO QAM KANDI Stop: 04/30/24 08:59 Last Admin: 03/31/24 08:12 Dose: 40 mg Documented By: PIERRE Ticagrelor (Ticagrelor 90 Mg Tab) 90 mg PO BID KANDI Stop: 04/30/24 08:59 Last Admin: 03/31/24 08:13 Dose: 90 mg Documented By: PIERRE Discontinued Medications Aspirin (Aspirin 81 Mg Ectab) 81 mg PO NOW STA Stop: 03/30/24 20:46 Last Admin: 03/30/24 21:45 Dose: 81 mg Documented By: ANGELA Fluoxetine HCl (Fluoxetine Hcl 20 Mg Cap) 40 mg PO NOW ONE Stop: 03/30/24 20:46 Last Admin: 03/30/24 21:47 Dose: 40 mg Documented By: ANGELA Sodium Chloride (Nss) 1,000 mls @ 999 mls/hr IV .Q1H1M ONE Stop: 03/30/24 17:14 Last Infusion: 03/30/24 20:01 Dose: Infused Documented By: Admin: 03/30/24 17:37 Dose: 999 mls/hr Documented By: CEF Cefepime HCl (Maxipime) 2,000 mg in 20 mls @ 5 mls/min IV NOW STA; Protocol Stop: 03/30/24 16:18 Last Admin: 03/30/24 17:25 Dose: 5 mls/min Documented By: CEF Acetaminophen (Ofirmev) 1,000 mg in 100 mls @ 400 mls/hr IV NOW STA Stop: 03/30/24 16:29 Last Infusion: 03/30/24 18:41 Dose: Infused Documented By: Admin: 03/30/24 17:37 Dose: 400 mls/hr Documented By: CEF Sodium Chloride (Nss) 1,000 mls @ 80 mls/hr IV .[id number] [facility] Stop: 04/29/24 22:42 Last Infusion: 03/31/24 10:24 Dose: Infused Documented By: Infusion: 03/31/24 08:43 Dose: 80 mls/hr Documented By: Admin: 03/31/24 05:50 Dose: 125 mls/hr Documented By: Infusion: 03/31/24 05:50 Dose: Infused Documented By: Admin: 03/30/24 23:17 Dose: 125 mls/hr Documented By: ENIO Lovastatin (Lovastatin 20 Mg Tab) 40 mg PO NOW STA Stop: 03/30/24 20:46 Last Admin: 03/30/24 21:45 Dose: 40 mg Documented By: ANGELA Ticagrelor (Ticagrelor 90 Mg Tab) 90 mg PO NOW STA Stop: 03/30/24 20:46 Last Admin: 03/30/24 21:44 Dose: 90 mg Documented By: ANGELA Discharge Plan Visit Data Chief Complaint: Hypotension Stated Complaint: LOW BP AND ELEVATED TEMP, REF BY DOC ED Provider: Km Holly Discharge Problem: Hypotension, ARF (acute renal failure), Fever, Anemia, UTI (urinary tract infection) Patient Disposition: Admitted As Inpatient Condition: Serious Discharge Instructions Interventions: ED Discharge Assessment Last Done: 03/31/24 03:47 Discharge Problem: Hypotension Qualifiers: Hypotension type: unspecified hypotension type Qualified Code(s): I95.9 - Hypotension, unspecified ARF (acute renal failure) Qualifiers: Acute renal failure type: unspecified Qualified Code(s): N17.9 - Acute kidney failure, unspecified Fever Qualifiers: Fever type: unspecified Qualified Code(s): R50.9 - Fever, unspecified Anemia Qualifiers: Anemia type: unspecified type Qualified Code(s): D64.9 - Anemia, unspecified UTI (urinary tract infection) Qualifiers: Urinary tract infection type: acute cystitis Hematuria presence: with hematuria Qualified Code(s): N30.01 - Acute cystitis with hematuria
[2024-03-30 16:47] LABS: Alanine Aminotransferase 9 U/L (7-52); Albumin Globulin Ratio 1.1 (0.9-2); Albumin Level 3.7 gm/dl (3.4-5.0); Alkaline Phosphatase 77 U/L (34-104); Anion Gap 10 (3-11); Aspartate Aminotransferase 17 U/L (13-39); BUN Creatinine Ratio 15.8 (10-20); Bilirubin,Total 0.7 mg/dl (0.2-1.0); Blood Urea Nitrogen 26 mg/dl (6-23); Calcium 9.4 mg/dl (8.6-10.3); Carbon Dioxide 25 mmol/L (21-32); Chloride 101 mmol/L (98-107); Est GFR (African American) 39.5 ml/min; Est GFR (Non-African American) 34.1 ml/min; Globulin 3.4 gm/dl (2.5-4.0); Glucose 242 mg/dl (70-99(Fasting)); Magnesium 1.8 mg/dl (1.7-2.4); Potassium 4.2 mmol/L (3.5-5.1); Sodium 136 mmol/L (136-145); Total Protein 7.1 gm/dl (6.0-8.3)
[2024-03-30 16:54] LABS: Troponin I High Sensitivity 11.6 pg/ml (0-14)
[2024-03-30 16:59] LABS: Partial Thromboplastin Time 26 Seconds (21-31); Prothrombin Time 10.5 Seconds (9.0-12.0)
[2024-03-30 17:17] LABS: Influenza A virus by PCR Negative (Neg); Influenza B virus by PCR Negative (Neg); RSV by PCR Negative (Neg); SARS CoV2 RNA(COVID-19) Ceph NEGATIVE (Negative)
[2024-03-30] MEDS: CEFEPIME 2,000 MG/20 ML VIAL IV STA (17:25)
[2024-03-30] MEDS: SODIUM CHLORIDE 0.9% 1,000 ML IV ONE (17:37)
[2024-03-30] MEDS: ACETAMINOPHEN 1,000 MG/100 ML VIAL IV STA (17:37)
[2024-03-30 17:48] LABS: Appearance Urine Turbid (Clear); Bacteria Urine Automated 1+ (None Seen); Bilirubin Urine Negative (Negative); Blood Urine 3+ (Negative); Color Urine Red; Epithelial Cell Urine Auto 0-2 /hpf (0-2); Glucose Urine UA Trace (Negative); Ketones Urine Negative (Negative); Leukocyte Esterase Urine 3+ (Negative); Nitrite Urine Negative (Negative); Protein Urine 2+ (Negative); RBC Urine Automated >20 /hpf (0-2); Specific Gravity Urine 1.018 (1.000-1.030); Urobilinogen Urine Positive (Negative); WBC Urine Automated >50 /hpf (0-5); pH Urine 7.5 (4.5-7.5)
[2024-03-30 17:49] LABS: Cast Urine Automated 0-2 /lpf (0-2)
--- NOTE | 2024-03-30 18:42 | CT Scan Report ---
ABDOMEN AND PELVIS CT WITHOUT CONTRAST CT DOSE: 886.55 mGy.cm HISTORY: Acute bilateral flank pain with fever bilat stents, fever, recent appy TECHNIQUE: Multiaxial CT images of the abdomen and pelvis were performed without contrast. A dose lo wering technique was utilized adhering to the principles of ALARA. COMPARISON STUDY: 03/09/2024 FINDINGS: Coronary artery calcifications. Mild cardiomegaly with decreased attenuation of the cardiac blood pool suggestive of anemia. Trace pericardial effusion. Mild left vascular atelectasis versus s carring. There is improved aeration of the lung bases with resolution of the pleural effusions. Calcified granulomata in the spleen. Unremarkable pancreas with mild haziness again noted adjacent to the uncinate process and pancreatic head. Unremarkable adrenal glands, gallbladder and liver. Bilateral ureteral stents appear to be in satisfactory positioning. There is mild bilateral caliectas is with slight dilation of the ureters. No hydronephrosis, renal or ureteral calculi identified. Deco mpressed urinary bladder with wall thickening and perivesicular stranding. There is decreased amount of hemorrhage within the pelvis. There is improved asymmetry of the rectus sheath. Hyperdense collect ion within the right paracentral and right lateral pelvis abutting and displacing the adjacent urinar y bladder and loops of bowel redemonstrated now measuring approximately 11.6 x 7.4 x 8.1 cm, most rec ently measuring 14.0 x 9.3 x 9.4 cm when measured in similar fashion. Improvement/near resolution of the previously seen ascites. Mild nonspecific distal esophageal wall thickening. No new or progressive lymphadenopathy. No bowel o bstruction or bowel wall thickening. Postoperative changes within the abdominal right lower quadrant. No acute fracture. IMPRESSION: 1. The previously noted hemorrhage within the right rectus abdominis demonstrates near-complete resol ution. 2. Decreased amount of hemorrhage within the right hemipelvis compared to the 03/09/2024 exam. There i s persistent mass effect and displacement upon the adjacent urinary bladder which is decompressed. 3. Bilateral ureteral stents in place. No hydronephrosis or perinephric inflammation. 4. Improved aeration of the lung bases with resolved pleural effusions. 5. No bowel obstruction or bowel wall thickening. ACT 112: Negative or not required by law. The above report was generated using voice recognition software. It may contain grammatical, syntax o r spelling errors. Electronically signed by: Tono Sosa M.D. 03/30/2024 6:39 PM
--- NOTE | 2024-03-30 21:03 | History & Physical Report ---
Date of Service March 30, 2024 Assessment & Plan (1) Hypotension: Plan: 58-year-old female with past medical history significant for type 1 diabetes on insulin pump, diabetic nephropathy, CKD stage III, hyperlipidemia, Graves' disease, history of hyperkalemia, history of sleep apnea but not using CPAP, history of non-ST elevated DC, history of right-sided heart failure, hypertension, obesity, anxiety, depression, history of COVID, who recently had prolonged hospital course comes because of hypotension and fever at home. Patient on 03/02 had appendectomy with postop hypotension which improved with fluids. And she also found to have UTI and given cefdinir to complete antibiotic course and was discharged on 03/05 to follow up as outpatient, patient came back on 03/05 because of weakness and found to be in severe sepsis/septic shock with UTI and possible pneumonia and RO with creatinine of 3.3 and non-ST elevated DC and CHF with pleural effusions and anasarca. She was monitored in the ICU. On 03/09 she had cardiac cath and status post 2 stents to LAD started on aspirin and Brilinta. Her hemoglobin dropped to 7.1 received 2 units of PRBCs. And imaging studies on 03/09 showed acute retroperitoneal bleed and was managed conservatively with a plan to repeat imaging in 4 to 6 weeks and she also developed obstructive uropathy secondary to pelvic hematoma s/p cystoscopy and bilateral stent placements. Patient had IV diuresis for volume overload. Patient did okay and was discharged home on 03/17/24. Today morning patient developed fever and and her systolic blood pressure was in 80s. In the afternoon blood pressure improved but still has having fever and feeling weak and came to the ER. Was having shortness of breath on exertion. Denies any chest pain. No headaches. No sore throat or cough. Appetite is okay. She still has hematuria. Normal bowel movements.Has lower abdominal pains. In the ER her systolic blood pressure in 80s but improved with the fluids. Patient currently resting comfortably and hemodynamically stable and not sick appearing. Hypotension UTI Lactic acid 1.9 Blood pressure improved with the fluids Recent urine cultures grew Klebsiella Placed on IV cefepime On IV fluids Will follow the cultures Close monitor as patient had complicated recent hospital course Will monitor hemodynamics. Telemetry Last admission patient's had bilateral ureteral stents for mass effect from hematoma. CT scan showing bilateral ureteral stents in place No hydronephrosis or perinephric inflammation seen on the CAT scan Will consider urology consult for recurrent UTI. RO on CKD stage III Presented with creatinine of 1.6 AM labs creatinine 1.3 around baseline Anemia Recent acute blood loss anemia Hemoglobin 9.7. Around baseline Will follow labs Recent non-ST elevated DC Severe coronary artery disease Status post 2 drug-eluting stents to LAD On aspirin, Brilinta and statin Recent retroperitoneal bleed Today CAT scan showing near complete resolution of the hemorrhage within right rectus abdominis. And decrease amount of hemorrhage within the right hemipelvis compared to 03/09/2024. Persistent mass effect and displacement upon the adjacent urinary bladder which is decompressed. Chronic congestive heart failure with preserved ejection fraction Right-sided heart failure Holding Lasix and potassium supplement Getting fluids Monitor for volume overload Diabetes type 1 On insulin pump Will monitor GERD Protonix Anxiety and depression On fluoxetine and Adderall Hyperlipidemia On statin DVT prophylaxis Heparin subcu. Monitor for any bleeding Disposition Telemetry Full code History of Present Illness Chief Complaint: UTI and hypotension Primary Care Provider: Antonio Cristobal MD 58-year-old female with past medical history significant for type 1 diabetes on insulin pump, diabetic nephropathy, CKD stage III, hyperlipidemia, Graves' disease, history of hyperkalemia, history of sleep apnea but not using CPAP, history of non-ST elevated DC, history of right-sided heart failure, hypertension, obesity, anxiety, depression, history of COVID, who recently had prolonged hospital course comes because of hypotension and fever at home. Patient on 03/02 had appendectomy with postop hypotension which improved with fluids. And she also found to have UTI and given cefdinir to complete antibiotic course and was discharged on 03/05 to follow up as outpatient, patient came back on 03/05 because of weakness and found to be in severe sepsis/septic shock with UTI and possible pneumonia and RO with creatinine of 3.3 and non-ST elevated DC and CHF with pleural effusions and anasarca. She was monitored in the ICU. On 03/09 she had cardiac cath and status post 2 stents to LAD started on aspirin and Brilinta. Her hemoglobin dropped to 7.1 received 2 units of PRBCs. And imaging studies on 03/09 showed acute retroperitoneal bleed and was managed conservatively with a plan to repeat imaging in 4 to 6 weeks and she also developed obstructive uropathy secondary to pelvic hematoma s/p cystoscopy and bilateral stent placements. Patient had IV diuresis for volume overload. Patient did okay and was discharged home on 03/17/24. Today morning patient developed fever and and her systolic blood pressure was in 80s. In the a fternoon blood pressure improved but still has having fever and feeling weak and came to the ER. Was having shortness of breath on exertion. Denies any chest pain. No headaches. No sore throat or cough. Appetite is okay. She still has hematuria. Normal bowel movements.Has lower abdominal pains. In the ER her systolic blood pressure in 80s but improved with the fluids. Patient currently resting comfortably and hemodynamically stable and not sick appearing. Past medical history as mentioned above Past surgical history. Cardiac cath. . Bilateral cystoscopy. Injection of lumbosacral spine. Laparoscopic appendectomy. Ligation ordered. Cataracts. Social history. . No smoking. Alcohol rarely. No drug use. Family history. Brother had type 1 diabetes. Father had lung disorder. Allergies Allergy/AdvReac Type Severity Reaction Status Date / Time CHAPARRO Inhibitors Allergy Intermediate cough Verified 03/01/24 23:34 Penicillins Allergy Intermediate rash Verified 03/01/24 23:34 Home Medications Medication Instructions Recorded Confirmed Type albuterol sulfate 90 mcg/actuation 2 puff inhalation Q4 PRN .COUGH, 03/01/24 03/30/24 History aerosol inhaler WHEEZING aspirin 81 mg tablet,delayed 81 mg PO QPM 03/01/24 03/30/24 History release dextroamphetamine-amphetamine ER 20 mg PO DAILY PRN .. 03/01/24 03/30/24 History 20 mg 24hr capsule,extend release fluoxetine 40 mg capsule 40 mg PO QPM 03/01/24 03/30/24 History insulin aspart U-100 100 unit/mL 0 unit subcut DIRECTED 03/01/24 03/30/24 History subcutaneous solution (Novolog U-100 Insulin aspart) lovastatin 40 mg tablet 40 mg PO QPM 03/01/24 03/30/24 History multivitamin-ferrous 1 tab PO DAILY 03/01/24 03/30/24 History fumarate-folic acid 18 mg-400 mcg tablet (Centrum Complete) ondansetron HCl 4 mg tablet 4 mg PO Q8 PRN Nausea 03/01/24 03/30/24 History semaglutide 1 mg/dose (4 mg/3 mL) 1 mg subcut .QFRIDAY 03/01/24 03/30/24 History subcutaneous pen injector (Ozempic) oxycodone-acetaminophen 5 mg-325 1 tab PO Q6H PRN pain #10 tabs 03/02/24 03/30/24 Rx mg tablet furosemide 20 mg tablet 20 mg PO QAM #30 tabs 03/17/24 03/30/24 Rx pantoprazole 40 mg tablet,delayed 40 mg PO QAM #30 tabs 03/17/24 03/30/24 Rx release potassium chloride 20 mEq 20 meq PO QAM #30 tabs 03/17/24 03/30/24 Rx tablet,extended release(part/cryst) ticagrelor 90 mg tablet (Brilinta) 90 mg PO BID #60 tabs 03/17/24 03/30/24 Rx tramadol 50 mg tablet 50 mg PO Q4H PRN pain #30 tabs 03/17/24 03/30/24 Rx Past Med/Surg History Problem List (Updated 03/31/24 @ 07:06 by Rashi Zamora MD) Hypotension S/P ureteral stent placement Abdominal pain Bilateral pleural effusion Intra abdominal hemorrhage Acute blood loss anemia Status post insertion of drug-eluting stent into left anterior descending (LAD) artery Hematoma Hydronephrosis CAD (coronary artery disease) Hypertension Acute right-sided heart failure Pleural effusion Pulmonary hypertension Shock Type 1 diabetes mellitus (Acute) Right ventricular dysfunction (Acute) Non-ST elevation DC (NSTEMI) (Acute) Acute respiratory failure with hypoxia (Acute) Acute renal failure (Acute) Sepsis (Acute) UTI due to Klebsiella species Acute kidney injury Acute appendicitis (Acute) COVID-19 (Acute) Neck muscle spasm (Acute) Intractable pain (Acute) Alcoholic intoxication (Acute) Encounter for medication refill (Acute) Encounter for medication refill (Acute) Medical History Interstitial lung disease CKD (chronic kidney disease) stage 3, GFR 30-59 ml/min Cervical radiculopathy DM (diabetes mellitus), type 1 Surgical History Hx of eye surgery History of female sterilization History of carpal tunnel surgery Social History Smoking Status: Never smoker Second Hand Exposure: No; Do You Dip or Chew Tobacco: No; Hx Alcohol Use: Yes Alcohol type: wine Hx Substance Use: No Preferred Language: [place] Communication Ability: Effective Lamp Assembler Required: No Beliefs That Will Affect Care: None Current Living Situation: Spouse Other Information That Helps Us Care for You: No Feels Safe at Home: Yes Safety Concerns: Feels Safe At This Time Assistive Devices: None Review of Systems Review of Systems: All systems reviewed & are unremarkable except as noted in HPI & below Physical Exam Physical Exam: General-Not in distress Head- atraumatic Eyes- PERRL. ENT- oropharynx clear Neck- supple, no JVD. Lungs- clear to auscultation no wheezing or crackles Heart- regular rhythm; no murmur, no gallop. Abdomen- normal bowel sounds, soft, mid discomfort, no distension Extremities- moving extremities, no erythema seen Neuro- alert, oriented PERRL, no facial palsy; no dysarthria; moves extremities Results & Data Results & Data Vital Signs (Past 12 Hours) Vital Signs Temp Pulse Pulse Resp BP BP Pulse Ox 03/30/24 19:00 79 20 137/77 99 03/30/24 17:06 84 12 133/84 99 03/30/24 16:41 87 03/30/24 15:47 03/30/24 15:42 37.7 C H 95 H 18 89/55 L 100 O2 Del Method 03/30/24 19:00 Room Air 03/30/24 17:06 Room Air 03/30/24 16:41 03/30/24 15:47 Room Air 03/30/24 15:42 Room Air Diagnostic Findings Laboratory Results WBC 7.26 K/ul (4.8-10.8) 03/31/24 05:42 RBC 2.83 M/uL (4.20-5.40) L 03/31/24 05:42 Hgb 9.1 g/dl (12.0-16.0) L 03/31/24 05:42 Hct 27.9 % (37.0-47.0) L 03/31/24 05:42 MCV 98.6 fL (80.0-100.0) 03/31/24 05:42 MCH 32.2 pg (25.0-34.0) 03/31/24 05:42 MCHC 32.6 g/dL (32.0-36.0) 03/31/24 05:42 RDW Std Deviation 56.5 fL (36.4-46.3) H 03/31/24 05:42 RDW Coeff of Emma 15.7 % (11.5-14.5) H 03/31/24 05:42 Plt Count 407 K/uL (130-400) H 03/31/24 05:42 MPV 10.1 fL (9.4-12.4) 03/31/24 05:42 Immature Gran % (Auto) 0.8 % 03/31/24 05:42 Neut % (Auto) 62.0 % 03/31/24 05:42 Lymph % (Auto) 15.8 % 03/31/24 05:42 [place] % (Auto) 10.7 % 03/31/24 05:42 Eos % (Auto) 9.9 % 03/31/24 05:42 Baso % (Auto) 0.8 % 03/31/24 05:42 Neut # (Auto) 4.49 K/uL (1.40-6.50) 03/31/24 05:42 Lymph # (Auto) 1.15 K/uL (1.20-3.40) L 03/31/24 05:42 [place] # (Auto) 0.78 K/uL (0.11-0.59) H 03/31/24 05:42 Eos # (Auto) 0.72 K/uL (0.00-0.50) H 03/31/24 05:42 Baso # (Auto) 0.06 K/uL (0.00-0.20) 03/31/24 05:42 Immature Gran # (Auto) 0.06 K/uL (0.01-0.20) 03/31/24 05:42 PT 10.5 Seconds (9.0-12.0) 03/30/24 16:00 INR 1.0 (0.9-1.1) 03/30/24 16:00 APTT 26 Seconds (21-31) 03/30/24 16:00 PTT Ratio 1.0 03/30/24 16:00 Sodium 140 mmol/L (136-145) 03/31/24 05:42 Potassium 4.3 mmol/L (3.5-5.1) 03/31/24 05:42 Chloride 109 mmol/L (98-107) H 03/31/24 05:42 Carbon Dioxide 24 mmol/L (21-32) 03/31/24 05:42 Anion Gap 7 (3-11) 03/31/24 05:42 BUN 22 mg/dl (6-23) 03/31/24 05:42 Creatinine 1.32 mg/dl (0.6-1.2) H D 03/31/24 05:42 Est Cr Clr Drug Dosing 41.6 ml/min 03/31/24 05:42 Est GFR ( Amer) 51.8 ml/min 03/31/24 05:42 Est GFR (Non-Af Amer) 44.7 ml/min 03/31/24 05:42 BUN/Creatinine Ratio 16.7 (10-20) 03/31/24 05:42 Glucose 177 mg/dl (70-99(Fasting)) H 03/31/24 05:42 Lactate 1.9 mmol/L (0.4-2.0) 03/30/24 16:00 Calcium 8.7 mg/dl (8.6-10.3) 03/31/24 05:42 Magnesium 1.8 mg/dl (1.7-2.4) 03/31/24 05:42 Total Bilirubin 0.7 mg/dl (0.2-1.0) 03/30/24 16:00 AST 17 U/L (13-39) 03/30/24 16:00 ALT 9 U/L (7-52) 03/30/24 16:00 Alkaline Phosphatase 77 U/L (34-104) 03/30/24 16:00 Troponin I High Sens 11.6 pg/ml (0-14) 03/30/24 16:00 Total Protein 7.1 gm/dl (6.0-8.3) 03/30/24 16:00 Albumin 3.7 gm/dl (3.4-5.0) 03/30/24 16:00 Globulin 3.4 gm/dl (2.5-4.0) 03/30/24 16:00 Albumin/Globulin Ratio 1.1 (0.9-2) 03/30/24 16:00 Procalcitonin 0.24 ng/ml (0-0.5) 03/30/24 16:00 Urine Color Red 03/30/24 17:19 Urine Appearance Turbid (Clear) A 03/30/24 17:19 Urine pH 7.5 (4.5-7.5) 03/30/24 17:19 Ur Specific [place] 1.018 (1.000-1.030) 03/30/24 17:19 Urine Protein 2+ (Negative) H 03/30/24 17:19 Urine Glucose (UA) Trace (Negative) H 03/30/24 17:19 Urine Ketones Negative (Negative) 03/30/24 17:19 Urine Blood 3+ (Negative) H 03/30/24 17:19 Urine Nitrite Negative (Negative) 03/30/24 17:19 Urine Bilirubin Negative (Negative) 03/30/24 17:19 Urine Urobilinogen Positive (Negative) H 03/30/24 17:19 Ur Leukocyte Esterase 3+ (Negative) H 03/30/24 17:19 Urine WBC (Auto) >50 /hpf (0-5) H 03/30/24 17:19 Urine RBC (Auto) >20 /hpf (0-2) H 03/30/24 17:19 U Hyaline Cast (Auto) 0-2 /lpf (0-2) 03/30/24 17:19 U Epithel Cells (Auto) 0-2 /hpf (0-2) 03/30/24 17:19 Urine Bacteria (Auto) 1+ (None Seen) H 03/30/24 17:19 SARS-CoV-2 (PCR) NEGATIVE (Negative) 03/30/24 16:15 Influenza Type A (PCR) Negative (Neg) 03/30/24 16:15 Influenza Type B (PCR) Negative (Neg) 03/30/24 16:15 RSV (RT-PCR) Negative (Neg) 03/30/24 16:15 Impressions Chest X-Ray 03/30/24 15:47 XR chest 1V portable CLINICAL HISTORY: Chest pain, nonspecific TECHNIQUE: Single frontal radiograph of the chest was obtained. Comparison: Comparison is made to chest radiograph 03/13/2024 FINDINGS: No lines and tubes are seen. The cardiomediastinal silhouette is normal. The lungs are clear. No evidence of pleural effusion or pneumothorax. IMPRESSION: No acute chest disease. ACT 112: Negative or not required by law. Electronically signed by: Live Medel M.D. 03/30/2024 4:42 PM Abdomen/Pelvis CT 03/30/24 16:[address] WITHOUT CONTRAST CT DOSE: 886.55 mGy.cm HISTORY: Acute bilateral flank pain with fever bilat stents, fever, recent appy TECHNIQUE: Multiaxial CT images of the abdomen and pelvis were performed without contrast. A dose lowering technique was utilized adhering to the principles of ALARA. COMPARISON STUDY: 03/09/2024 FINDINGS: Coronary artery calcifications. Mild cardiomegaly with decreased attenuation of the cardiac blood pool suggestive of anemia. Trace pericardial effusion. Mild left vascular atelectasis versus scarring. There is improved aeration of the lung bases with resolution of the pleural effusions. Calcified granulomata in the spleen. Unremarkable pancreas with mild haziness again noted adjacent to the uncinate process and pancreatic head. Unremarkable adrenal glands, gallbladder and liver. Bilateral ureteral stents appear to be in satisfactory positioning. There is mil d bilateral caliectasis with slight dilation of the ureters. No hydronephrosis, renal or ureteral calculi identified. Decompressed urinary bladder with wall thickening and perivesicular stranding. There is decreased amount of hemorrhage within the pelvis. There is improved asymmetry of the rectus sheath. Hyperdense collection within the right paracentral and right lateral pelvis abutting and displacing the adjacent urinary bladder and loops of bowel redemonstrated now measuring approximately 11.6 x 7.4 x 8.1 cm, most recently measuring 14.0 x 9.3 x 9.4 cm when measured in similar fashion. Improvement/near resolution of the previously seen ascites. Mild nonspecific distal esophageal wall thickening. No new or progressive lymphadenopathy. No bowel obstruction or bowel wall thickening. Postoperative changes within the abdominal right lower quadrant. No acute fracture. IMPRESSION: 1. The previously noted hemorrhage within the right rectus abdominis demonstrates near-complete resolution. 2. Decreased amount of hemorrhage within the right hemipelvis compared to the 03/09/2024 exam. There is persistent mass effect and displacement upon the adjacent urinary bladder which is decompressed. 3. Bilateral ureteral stents in place. No hydronephrosis or perinephric inflammation. 4. Improved aeration of the lung bases with resolved pleural effusions. 5. No bowel obstruction or bowel wall thickening. ACT 112: Negative or not required by law. The above report was generated using voice recognition software. It may contain grammatical, syntax or spelling errors. Electronically signed by: Tono Sosa M.D. 03/30/2024 6:39 PM ECG Additional Comments: ECG. Normal sinus rhythm with rate of 92. Nonspecific T abnormalities. QTc 445 Code Status & VTE Plan VTE Prophylaxis Plan VTE Prophylaxis will be ordered: Yes
--- OUTSIDE RECORDS SUMMARY | 2024-03-30 21:19 | External Medical Summary | Summary of Care ---
Author Name Unknown Organization [facility] Address [address] [place] [address] Phone [phone] Care Team Providers Care Employee Relations Manager Name Role Phone Antonio Cristobal MD Primary Care Provider + Reason for Visit * Reason Comments Physical-Exam Just had hosp follow up last week with Susu. This was technically her year return, scheduled in November. Encounter Details Date Type Department Care Team (Late st Contact Info) Description 03/27/2024 1:00 PM EDT Office Visit Family Practice [facility] [address] [place] [address] Berenice Valle CRNP [address] [facility] [place] [id number] Essential hypertension with goal blood pressure less than 140/90*; Type 1 diabetes mellitus with hemoglobin A1c goal of 7.0%-8.0% ([facility]); Severe obesity with body mass index (BMI) of 35.0 to 39.9 with serious comorbidity ([facility]); Stage 3b chronic kidney disease ([facility]); RO (acute kidney injury) ([facility]) Allergies Active Allergy Reactions Criticality Noted Date Comments Dominick Inhibitors Cough High 08/25/2009 Penicillins Rash High 08/25/2009 documented as of this encounter (statuses as of 03/27/2024) Medications Medication Sig Dispensed Refills Start Date End Date Status CENTRUM CARB ASSIST PO TABS Take by mouth at bedtime. Active aspirin enteric coated 81 MG TBEC Take 1 Tab by mouth daily. 100 Tab 3 05/27/2017 Active Additional Information Patient taking differently:81 mg OralDAILY(1900), Reported on 03/21/2024 Insulin Infusion Pump (MINIMSpectraLinear 670G INSULIN PUMP) LEE Use as directed. 11/16/2018 Active CloudVolumesTouch Delica Lancets 33G Use to check blood sugar up to 6 times a day. DX E10.22 600 Each 1 02/24/2022 Active CloudVolumesTouch Ultra 2 w/Device Kit Use to test blood sugar up to 6 times a day. DX E10.22 1 Each 02/24/2022 Active Contour Next Test In Vitro Strip (Glucose Blood) Testing 6 times a day Dx 10.9 600 Strip 3 03/23/2022 Active Amphetamine-Dextroam phet ER 20 MG Oral Capsule Extended Release 24 Hour (Adderall XR)Indications:Atten tion deficit hyperactivity disorder (ADHD), unspecified ADHD type One pill by mouth once a day. 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 3 mL 11 01/25/2024 Active Additional Information Patient not taking.Reported on 03/21/2024 Ondansetron HCl 4 MG Oral Tablet Take 1 Tablet by mouth every 8 hours as needed for Nausea. 15 Tablet 02/25/2024 Active Additional Information Patient not taking.Reported on 03/23/2024 Pantoprazole Sodium 40 MG Oral Tablet Delayed Release (Protonix) Take 1 Tablet by mouth in the morning. 03/17/2024 Active Brilinta 90 MG Oral Tablet Take 1 Tablet by mouth in the morning and 1 Tablet before bedtime. 03/17/2024 Active traMADol HCl 50 MG Oral Tablet (Ultram) Take 1 Tablet by mouth every 4 hours as needed for Pain, Moderate. Active documented as of this encounter (statuses as of 03/27/2024) Active Problems Problem Noted Date Diagnosed Date Severe obesity with body mas s index (BMI) of 35.0 to 39.9 with serious comorbidity 03/27/2024 Coronary artery disease invo lving sw[place] coronary artery of sw[place]ish heart without angina pectoris 03/21/2024 RO (acute kidney injury) 03/21/2024 Retroperitoneal hematoma 03/21/2024 Obstruction of both ureters 03/21/2024 Acute right-sided heart failure 03/21/2024 Non-STEMI (non-ST elevated myocardial infarction ) 03/09/2024 Hyperkalemia 08/31/2022 Stage 3b chronic kidney disease [...] term ADHD (attention deficit hyperactivity disorder) 08/16/2013 Well adult exam 08/10/2013 Overview: [facility]. Colon screen-declines scope, cologuard. Will do FOB last 04/0703/08/24 GENNARO @[facility]--no atrial septal defect seen & none noted at cath as well.. Normal EF mod dilated RV & RA. No Pulm HTN 03/06/24 [facility] TTE--large R to L interatrial shunt. 03/05/24. EF 65-70. Severe dilated RV & RV fxn severe reduced. Mod dilated RA. E P 40mm 12/03 has new insulin monitor/pump 07/31-inc prozac [...] +. Lipids At goal Cr 1.49. 04/30 [facility] a1c 7.0. Micoralb + 119. 07/31 Labs scan-Cr 1.3 GFR 50s Javid Endo On insulin pump 10/28 a1c 7.5, + microalb 35 ICD-10 update of inactive term S/P laparoscopic appendectomy documented as of this encounter (statuses as of 03/27/2024) Resolved Problems Problem Noted Date Diagnosed Date Resolved Date Congenital heart disease wit h intracardiac shunting 03/08/2024 03/21/2024 Overview: 03/10 [facility] TTE--large R to L interatrial shunt. Major depressive disorder, s bhanu episode, severe [...] as of this encounter (statuses as of 03/27/2024) Immunizations Name Administration Dates Next Due Covid-19 Ad26, Single Dose (Anatoly/J&J) 12/27/2020 Hepatitis B, 20+ yrs 02/25/2014,09/28/2013,08/16 Pneumococcal Polysaccharide PPV23 (Pneumovax) 08/16/2013 Seasonal Influenza, PF, 6 M & above, IM , (FluLaval or Fluzone) 07/02/2022,03/26/2021,03/14/2020,05/31,05/30/2018 Seasonal Influenza, Quadriva lent, No Preserve, IM 03/31/2016,04/22/2015 Seasonal Influenza, Trivalen t, (IIV3), with Preserv, (Fluzone) 05/17/2011,04/20/2010 TDAP (age 10 and older)(Boostrix) 10/06/2020 [...] Sign Reading Time Taken Comments Blood Pressure 102/60 03/27/2024 1:13 PM EDT Pulse 93 03/27/2024 1:13 PM EDT Temperature - - Respiratory Rate - - Oxygen Saturation - - Inhaled Oxygen Concentration - - Weight 70.1 kg (154 lb 7 oz) 03/27/2024 1:13 PM EDT Height 154.9 cm (5' 1") 03/27/2024 1:13 PM EDT Body Mass Index 29.18 03/27/2024 1:13 PM EDT documented in this encounter Progress Notes * Berenice Valle CRNP - 03/27/2024 1:07 PM EDT Follow up Family Medicine Visit CC: 1 YEAR FOLLOW UP History of Present Illness: Amanda Machuca is a 58 year old female presenting for follow up. Obstruction in both ureters- Scheduled for urology. Ro- CREATININE at 1.44. GFR 40s Nstemi Keep cardiology followup On asa, brillinta Dm- mtm manages. 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 1 daughter Debra.. step son 32.. /BTL Other Topics Concern Not on file Social History Narrative Daughter at U Social Determinants of Health Financial Resource Strain: Not on file Food Insecurity: Not on file Transportation Needs: Not on file Social Connections: Unknown (01/03/2024) Social Connections How often do you feel lonely or isolated from those around you? (Adult - for ages 18 years and over): Not on file Housing Stability: Not on file PMH: Past Medical History: Diagnosis Date ADHD (attention deficit hyperactivity disorder) 08/16/2013 Anxiety state [address] Barragan Diabetic nephropathy, type I ([facility]) 11/21/2016 DM type 1, goal A1C 7-[address] Barragan Dyslipidemia, goal LDL below [address] Barragan Graves disease 06/08/2013 H/O pelvic hematoma 02/2024 History of 2019 novel coronavirus disease (COVID-19) 07/15/202107/07 HTN, goal below 130/[address] Barragan Kidney disease, chronic, stage III (GFR 30-59 ml/min) ([facility]) 06/08/2013 Major depression, chronic 06/08/2013 Non-STEMI (non-ST elevated myocardial infarction) ([facility]) 03/09/2024 S/P laparoscopic appendectomy Type 1 diabetes mellitus with stage 3 chronic kidney disease and hypertension ([facility]) 05/31/2019 Past Surgical History: Procedure Laterality Date CARDIAC CATH SCANNED RESULT 03/09/2024 Dr Mehta [facility]. PCI--LAD up to 90%. [facility] placed x2 in LAD. CARDIAC CATH SCANNED RESULT 03/09/2024 Dr Hoff Diagnositic cath--90%LAD--2 stents DELIVERY 07/18/1995 Delivery Only x 1 CYSTOSCOPY Bilateral 03/09/2024 Dr Slick [email or web address]. pyelogram + b/l ureteral stent and catheter insertion due to compression due to large pelvic hematoma. INJECT DX/THER SUBSTANCE INTERLAMINAR LUMBAR/SACRAL W IMAGE GUIDE 11/15/2022 INJECTION SPINE LUMBAR OR SACRAL performed by James Tavarez, DO at OR [facility] LAPAROSCOPY;APPENDECTOMY 03/02/2024 Dr Slick Fernandez @[facility] LIGATE/CUT OVIDUCT(S), 07/18/1995 LUMBAR / SACRAL EPIDURAL, SINGLE LEVEL 06/07/2022 INJECTION TRANSFORAMINAL EPIDURAL LUMBAR OR SACRAL performed by James Tavarez DO at OR [facility] OTHER 07/18/1994 laser surgery "leaking blood vessel" REMOVE CATARACT, INSERT LENS PROSTH 07/18/1995 Cataract Removal w/ IOL REMOVE CATARACT, INSERT LENS PROSTH Right 04/21/2023 RIGHT EXTRACAPSULAR CATARACT REMOVAL WITH INTRAOCULAR LENS performed by Mukul Avitia MD at OR [facility] Current Outpatient Medications Medication Sig Dispense Refill Brilinta 90 MG Oral Tablet Take 1 Tablet by mouth in the morning and 1 Tablet before bedtime. Pantoprazole Sodium 40 MG Oral Tablet Delayed Release (Protonix) Take 1 Tablet by mouth in the morning. traMADol HCl 50 MG Oral Tablet (Ultram) Take 1 Tablet by mouth every 4 hours as needed for Pain, Moderate. Ondansetron HCl 4 MG Oral Tablet Take 1 Tablet by mouth every 8 hours as needed for Nausea. (Patient not taking: Reported on 03/23/2024) 15 Tablet 0 Ozempic (1 MG/DOSE) 4 MG/3ML Subcutaneous Solution Pen-injector (Semaglutide (1 MG/DOSE)) Inject 1 mg under the skin once a week. (Patient not taking: Reported on 03/21/2024) 3 mL 11 FLUoxetine HCl 40 MG Oral Capsule (PROzac) Take 1 capsule by mouth in the morning (Patient taking differently: Take 1 Capsule by mouth every evening.) 90 Capsule 1 Insulin Aspart 100 UNIT/ML Injection Solution (NovoLOG ReliOn) INJECT UP TO 50 UNITS ONCE DAILY VIAPUMP DIRECTED 40 mL 1 Amphetamine-Dextroamphet ER 20 MG Oral Capsule Extended Release 24 Hour (Adderall XR) One pill by mouth once a day. Do not cut, crush or chew (Patient not taking: Reported on 03/23/2024) 30 Capsule 0 Contour Next Test In Vitro Strip (Glucose Blood) Testing 6 times a day Dx 10.9 600 Strip 3 OneTouch Delica Lancets 33G Use to check blood sugar up to 6 times a day. DX E10.22 600 Each 1 OneTouch Ultra 2 w/Device Kit Use to test blood sugar up to 6 times a day. DX E10.22 1 Each 0 Insulin Infusion Pump (MINIMSpectraLinear 670G INSULIN PUMP) LEE Use as directed. aspirin enteric coated 81 MG TBEC Take 1 Tab by mouth daily. (Patient taking differently: Take 1 Tablet by mouth every evening.) 100 Tab 3 CENTRUM CARB ASSIST PO TABS Take by mouth at bedtime. No current facility-administered medications for this visit. Review of patient's allergies indicates: Allergen Reactions Dominick Inhibitors Cough Penicillins Rash Most Recent Immunizations Administered Date(s) Administered Covid-19 Ad26, Single Dose (Anatoly/J&J) 12/27/2020 Depo-Provera 08/30/2016 Hepatitis B, 20+ yrs 02/25/2014 Pneumococcal Polysaccharide PPV23 (Pneumovax) 08/16/2013 Seasonal Influenza, PF, 6 M & above, IM , (FluLaval or Fluzone) 07/02/2022 Seasonal Influenza, Quadrivalent, No Preserve, IM 03/31/2016 Seasonal Influenza, Trivalent, (IIV3), with Preserv, (Fluzone) 05/17/2011 TDAP (age 10 and older)(Boostrix) 10/06/2020 TDAP, Age 7 and older, IM (Adacel) 04/20/2010 Zoster Vaccine Recombinant (Shingrix) 05/31/2019 Review of Systems: Review of Systems Constitutional: Positive for fatigue. Negative for chills, diaphoresis and fever. Respiratory: Negative for shortness of breath. Cardiovascular: Negative for chest pain. Gastrointestinal: Negative for blood in stool, nausea and vomiting. Genitourinary: Positive for hematuria. Neurological: Negative for dizziness and syncope. Psychiatric/Behavioral: Negative for sleep disturbance. Physical Exam: [facility] 04/17/2015 (Exact Date) Physical Exam Constitutional: Comments: Ambulates with cane HENT: Head: Normocephalic. Eyes: Pupils: Pupils are equal, round, and reactive to light. Cardiovascular: Rate and Rhythm: Normal rate and regular rhythm. Pulmonary: Effort: Pulmonary effort is normal. Breath sounds: Normal breath sounds. Abdominal: General: Bowel sounds are normal. Palpations: Abdomen is soft. Tenderness: There is no abdominal tenderness. Musculoskeletal: General: Normal range of motion. Cervical back: Normal range of motion. Neurological: General: No focal deficit present. Mental Status: She is alert and oriented to person, place, and time. Psychiatric: Mood and Affect: Mood normal. Behavior: Behavior normal. Thought Content: Thought content normal. Judgment: Judgment normal. Assessment and Plan: 1. Type 1 diabetes mellitus with hemoglobin A1c goal of 7.0%-8.0% (HCC) Stable on recent labs A1C at 5.9 2. Severe obesity with body mass index (BMI) of 35.0 to 39.9 with serious comorbidity (HCC) 3. Stage 3b chronic kidney disease (HCC) Recent RO Creat at 1.4 GFR at 40s Holding on additional CT scans with dye for now per nehphrology RECOMMENDATION 4. Essential hypertension with goal blood pressure less than 140/90 stable 5. RO (acute kidney injury) (HCC) improved I have advised the patient to call our office incase of any worsening or new symptoms. I spent a total of 40-54 minutes (exact time 40 mins) on the date of service in preparation, delivery, and documentation of the care provided to Amanda Machuca excluding any time spent in the performance of separately billed services. Margret, ELBERT, JONH [facility] Medicine documented in this encounter Plan of Treatment Upcoming Encounters Date Type Department Care Team (Late st Contact Info) Description 04/02/2024 1:00 PM EDT Office Visit Pharmacy, [facility] [address] [place] [address] Pharmacist1, [facility] [address] [facility] [place] [address] 04/24/2024 1:00 PM EDT Imaging Radiology [facility] [address] [facility] [address] [place] [address] 05/07/2024 11:00 AM EDT Office Visit Cardiology, [facility] [address] [place] [address] Sukhwinder Hoff, DO [address] [place] [address] 07/02/2024 3:20 PM EST Office Visit Nephrology, [facility] [address] [place] [address] Carlyn Yadav MD [address] [facility] [place] [address] 08/21/2024 1:40 PM EST Office Visit [facility] [address] [place] [address] Antonio Cristobal MD [address] [facility] [address] 08/31/2024 2:30 PM EST Office Visit Urology Arcelia Shipman [address] [facility] [address] [place] [address] Teo Fernandez MD [address] [place] [address] 10/03/2024 2:20 PM EDT Office Visit [facility] [place] [address] Berenice Valle CRNP [address] [facility] [place] [address] Health Maintenance Due Date Last Done Comments HIV Screening 1981 Hepatitis C Screening 1984 Cologuard 10/31/2011 Colonoscopy 10/31/2011 Sigmoidoscopy 10/31/2011 Pneumococcal Vaccine: Pediatrics (0 to 5 Years) and At-Risk Patients (6 to 64 Years) (2 of 2 - PCV) 08/16/2014 08/16/2013 Colorectal Cancer Screening 12/18/2021 Fecal Occult Blood Test 12/18/2021 12/18/2020, 06/15 Diabetic Foot Exam 04/08/2022 04/08/2021, 1 07/30/2017, 05/27/2017, Additional history exists Depression Monitoring 02/23/2023 02/23/2022 COVID-19 Vaccine (2 - season) 2024 12/27/2020 Influenza Vaccine (FLU shot) (#1) 2024 07/02/2022, 03/26/2021, 03/14/2020, Additional history exists Mammogram 05/10/2024 05/10/2023, 08/2022, 07/31/2019, Additional history exists Diabetic Eye Exam 07/25/2024 07/25/2023, , 02/27/2020, Additional history exists GFR 09/23/2024 03/26/2024, 09/2023, 03/16/2024, Additional history exists HbA1c 09/23/2024 03/26/2024, 12/16, 09/27/2023, Additional history exists Albumin/Creatinine Ratio 09/26/2024 024, 03/23/2022, 04/08/2021, Additional history exists CKD HGB USE SMARTSET 65770 03/26/202503/26, 06/29/2022, 05/31/2019, Additional history exists CKD PHOS USE SMARTSET 65663 03/26/202503/2024, 03/16/2024, 03/15/2024, Additional history exists Pap Smear 04/16/2026 04/16/2023, 05/18, 03/25/2015, Additional history exists Cervical Cancer Screening 04/16/2028 HPV/Co-Test 04/16/2028 04/16/2023 DTap/Tdap Vaccines (3 - Td or Tdap) 10/06/2030 10/06/2020, 04/20/2010 Hepatitis B Vaccine Completed 02/25/2014, 09/28/2013, 08/16/2013 Zoster Vaccines Completed 05/31/2019, 12/01/2018 HPV (Gardasil) Vaccine Aged Out No lo nger eligible based on patient's age to complete this topic MENINGOCOCCAL (MENACTRA/MENVEO) Aged Out No longer eligible based on patient's age to complete this topic documented as of this encounter Medical Devices Implanted Type Area Regional Director Of Admissions Device Identifier Shelf Expiration Date Model / Serial / Lot Lens [id number] 13.00mm 20.50 - [id number] - [id number] Implanted:Qty: 1 on 04/21/2023 by Mukul Avitia MD at [facility] Right: Eye [employer] 11/15/2027 [id number] / [id number] / [id number] documented as of this encounter Visit Diagnoses Diagnosis Essential hypertension with goal blood pressure less than 140/90- Primary Type 1 diabetes mellitus with hemoglobin A1c goal of 7.0%-8.0% (HCC) Severe obesity with body mass index (BMI) of 35.0 to 39.9 with serious comorbidity (HCC) Stage 3b chronic kidney disease (HCC) RO (acute kidney injury) (HCC) Acute kidney failure, unspecified documented in this encounter Advance Directives [...] Power of Attor brittany? No Care Teams Employee Relations Manager Relationship Specialty Start Date End Date Antonio Cristobal MD [address] [facility] [place] [address] PCP - General Family Medicine 10/03/14 documented as of this encounter
--- OUTSIDE RECORDS SUMMARY | 2024-03-30 21:20 | External Medical Summary | Summary of Care ---
Author Name Unknown Organization [facility] Address [address] [place] [address] Phone [phone] Care Team Providers Care Home Care Rn Name Role Phone Antonio Cristobal MD Primary Care Provider + Encounter Details Date Type Department Care Team (Late st Contact Info) Description 03/27/2024 Orders Only Family Practice [facility] [place] [address] Antonio Cristobal MD 132 [facility] [place] [address] Allergies Active Allergy Reactions Criticality Noted Date [...] OralDAILY(1900), Reported on 03/21/2024 Insulin Infusion Pump (MINIMVerdezyne 670G INSULIN PUMP) LEE Use as directed. [...] crush or chew 30 Capsule 05/17/2023 Active Additional Information Patient not taking.Reported on 03/23/2024 Insulin Aspart 100 UNIT/ML Injection Solution (NovoLOG [...] Active Problems Problem Noted Date Diagnosed Date Coronary artery disease invo lving three affiliated coronary artery of three affiliated heart without angina pectoris 03/21/2024 RO (acute [...] cologuard. Will do FOB last 04/0703/08/24 GENNARO @[facility]--no atrial septal defect seen & none noted at cath as well.. Normal EF mod dilated RV & RA. No Pulm HTN 03/06/24 [facility] TTE--large R to L interatrial shunt. 03/05/24. [...] +. Lipids At goal Cr 1.49. 04/30 [facility] a1c 7.0. Micoralb + 119. 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 Major [...] 1:00 PM EDT Office Visit Family Practice [facility] [address] [place] [address] Berenice Valle CRNP 132 [facility] [place] [address] 03/27/2024 1:30 PM EDT Laboratory Laboratory, [facility] 132 [facility] [place] [phone] [facility] 132 [facility] [place] [address] 03/29/2024 4:30 PM EDT Imaging Radiology [address] 132 [facility] [place] [address] 04/02/2024 1:00 PM EDT Office Visit Pharmacy, [facility] [address] [place] [address] Pharmacist1, [facility] [address] [facility] [place] [address] 04/24/2024 1:00 PM EDT Imaging Radiology [address] 132 [facility] [place] [address] 05/07/2024 11:00 AM EDT Office Visit Cardiology, [facility] [address] [place] [address] Sukhwinder Hoff DO 132 [facility] [place] [address] 07/02/2024 3:20 PM EST Office Visit Nephrology, [facility] [address] [place] [address] Carlyn Yadav MD 400 [facility] [place] [phone] 08/21/2024 1:40 PM EST Office Visit Family Practice [facility] [address] [place] [address] Antonio Cristobal MD [address] [place] [address] 08/31/2024 2:30 PM EST Office Visit Urology Arcelia Shipman [address] [place] [address] Teo Fernandez MD [address] [place] [address] Health Maintenance Due Date Last Done Comments [...] Additional history exists Depression Monitoring 02/23/2023 02/23/2022 CKD HGB USE SMARTSET 94372 06/29/202303/26, 06/29/2022, 05/31/2019, Additional history exists COVID-19 Vaccine ( season) 2024 12/27/2020 Influenza Vaccine (FLU shot) (#1) 2024 07/02/2022, 03/26/2021, 03/14/2020, Additional history exists Mammogram 05/10/2024 05/10/2023, 08/2022, 07/31/2019, Additional history exists HbA1c 07/04/2024 03/26/2024, 12/16, 09/27/2023, Additional history exists Diabetic Eye Exam 07/25/2024 07/25/2023, , 02/27/2020, Additional history exists GFR 09/17/2024 03/26/2024, 09/2023, 03/16/2024, Additional history exists Albumin/Creatinine Ratio 09/26/2024 024, 03/23/2022, 04/08/2021, Additional history exists CKD PHOS USE SMARTSET 16565 03/16/202503/2024, 03/16/2024, 03/15/2024, Additional history exists Pap Smear [...] this encounter Medical Devices Implanted Type Area Hat Cutter Device Identifier Shelf Expiration Date Model / Serial / Lot Lens Li61ao 13.00mm 20.50 - [id number] - [id number] Implanted:Qty: 1 on 04/21/2023 by Mukul Avitia MD at OR [facility] Right: Eye [employer] 11/15/2027 [id number] / [id number] / [id number] documented as of this encounter Procedures Procedure Name Priority Date/Time Associated Diagnosis Comments CHEMISTRY-OUTSIDE Routine 03/26/2024 documented in this encounter Results * (ABNORMAL) CHEMISTRY-OUTSIDE (03/26/2024) Not all results display below - see scan for full detail OUTSIDE LAB (SEE SCANNED REPORT) Comment:[facility] -CMP,PHOS,HGBA1 C,EAG,CBC CREATININE-OUTSID E LAB 1.44(A) 0.6 - 1.2 MG/DL OUTSIDE LAB (SEE SCANNED REPORT) EGFR-OUTSIDE LAB 40.2(A) 60 ML/MIN OUT SIDE LAB (SEE SCANNED REPORT) POTASSIUM-OUTSIDE LAB 4.5 3.5 - 5.1 MMOL OUTSIDE LAB (SEE SCANNED REPORT) GLUCOSE-OUTSIDE LAB 133(A) 70 - 99 MG/DL OUTSIDE LAB (SEE SCANNED REPORT) HOURS FASTING OUTSID E LAB (SEE SCANNED REPORT) TRIGLYCERIDES-OUT SIDE LAB OUTSIDE LAB (SEE SCANNED REPORT) CHOLESTEROL-OUTSI DE LAB OUTSIDE LAB (SEE SCANNED REPORT) HDL-OUTSIDE LAB OUTS KATHY LAB (SEE SCANNED REPORT) CHOL/HDL RATIO-OUTSIDE LAB OUTSIDE LA B (SEE SCANNED REPORT) LDL (CALCULATED)-OUTS KATHY LAB OUTSIDE LAB (SEE SCANNED REPORT) LDL (DIRECT MEASURE)-OUTSIDE LAB OUTSIDE LAB (SEE SCANNED REPORT) HEMOGLOBIN, O6D-JGTFFCK LAB 5.9(A) 4.5 - 5.6 % OUTSIDE LAB (SEE SCANNED REPORT) PHOSPHORUS-OUTSID E LAB 3.9 2.5 - 4.9 MG/DL OUTSIDE LAB (SEE SCANNED REPORT) PTH-OUTSIDE LAB OUTS KATHY LAB (SEE SCANNED REPORT) MICROALBUMIN RATIO-OUTSIDE LAB OUTSIDE LA B (SEE SCANNED REPORT) PROTEIN, UA-OUTSIDE LAB OUTSIDE LAB (SEE SCANNED REPORT) HGB 10.0(A) 12 - 16 G/DL OUTSIDE LAB (SEE SCANNED REPORT) 03/26/2024 Antonio Cristobal MD LABORATORY OUTSIDE LAB (SEE SCANNED REPORT) documented in this encounter Advance Directives * [...] Power of Attor brittany? No Care Teams Home Care Rn Relationship Specialty Start Date End Date Antonio Cristobal MD [address] [place] [address] PCP - General Family Medicine 10/03/14 documented as of this encounter
[2024-03-30] MEDS: TICAGRELOR 90 MG TAB PO STA (21:44)
[2024-03-30] MEDS: LOVASTATIN 20 MG TAB PO STA (21:45)
[2024-03-30] MEDS: ASPIRIN 81 MG ECTAB PO STA (21:45)
[2024-03-30] MEDS: FLUoxetine HCL 20 MG CAP PO ONE (21:47)
[2024-03-30] MEDS ORDERED: CARBOHYDRATES FOR HYPOGLYCEMIA PO PRN ×2 (22:43)
[2024-03-30] MEDS ORDERED: DEXTROSE 50% 50 ML SYRINGE IV PRN ×2 (22:43)
[2024-03-30] MEDS ORDERED: GLUCOSE 10 TAB/TUBE PO PRN ×2 (22:43)
[2024-03-30] MEDS ORDERED: GLUCOSE 40% GEL 15 GM TUBE PO PRN ×2 (22:43)
[2024-03-30] MEDS ORDERED: ALBUTEROL HFA 8 GM INHALER INH PRN (22:43)
[2024-03-30] MEDS ORDERED: INSULIN ASPART PER UNIT CHARGE SQ SCH (22:43)
[2024-03-30] MEDS ORDERED: GLUCAGON FOR INJ 1 MG VIAL SQ PRN ×2 (22:43)
[2024-03-30] MEDS ORDERED: NITROGLYCERIN SL 0.4 MG/TAB TAB SL PRN (22:43)
[2024-03-30] MEDS ORDERED: INSULIN ASPART 100 UNITS/ML VIAL SC PRN (23:15)
[2024-03-30] MEDS: HEPARIN SOD 5,000 UNIT/0.5 ML VIAL SQ SCH (23:16)
[2024-03-30] MEDS: SODIUM CHLORIDE 0.9% 1,000 ML IV SCH (23:17)
[2024-03-31] MEDS: CEFEPIME 2,000 MG in SYRINGE 0 ML IV SCH (05:49)
[2024-03-31 06:15] LABS: Basophils # (auto) 0.06 K/uL (0.00-0.20); Basophils % (auto) 0.8 %; Eosinophils # (auto) 0.72 K/uL (0.00-0.50); Eosinophils % (auto) 9.9 %; Hematocrit (blood only) 27.9 % (37.0-47.0); Hemoglobin 9.1 g/dl (12.0-16.0); Immature Granulocytes # (auto) 0.06 K/uL (0.01-0.20); Immature Granulocytes % (auto) 0.8 %; Lymphocytes # (auto) 1.15 K/uL (1.20-3.40); Lymphocytes % (auto) 15.8 %; Mean Corpuscular Hemoglobin 32.2 pg (25.0-34.0); Mean Corpuscular Hgb Conc 32.6 g/dL (32.0-36.0); Mean Corpuscular Volume 98.6 fL (80.0-100.0); Mean Platelet Volume 10.1 fL (9.4-12.4); Monocytes # (auto) 0.78 K/uL (0.11-0.59); Monocytes % (auto) 10.7 %; Neutrophils # (auto) 4.49 K/uL (1.40-6.50); Platelet Count 407 K/uL (130-400); RDW Coefficient of Variation 15.7 % (11.5-14.5); RDW Standard Deviation 56.5 fL (36.4-46.3); Red Blood Count 2.83 M/uL (4.20-5.40); White Blood Count 7.26 K/ul (4.8-10.8)
[2024-03-31 06:32] LABS: BUN Creatinine Ratio 16.7 (10-20); Creatinine Clr Calc Pharmacy 41.6 ml/min; Est GFR (African American) 51.8 ml/min; Est GFR (Non-African American) 44.7 ml/min; Potassium 4.3 mmol/L (3.5-5.1)
[2024-03-31 06:33] LABS: Calcium 8.7 mg/dl (8.6-10.3); Magnesium 1.8 mg/dl (1.7-2.4)
[2024-03-31] MEDS: CEROVITE ADV FORMULA TAB PO SCH (08:12)
[2024-03-31] MEDS: PANTOprazole 40 MG TAB PO SCH (08:12)
[2024-03-31] MEDS: INSULIN, Rapid-Acting PUMP SCH (08:12)
[2024-03-31] MEDS: Continuous Glucose Monitor SCH (08:12)
[2024-03-31] MEDS: TICAGRELOR 90 MG TAB PO SCH (08:13)
[2024-03-31] MEDS: DEXTROAMPHETAMINE/AMPHETAMINE ER 20 MG CAP PO SCH (08:39)
[2024-03-31] MEDS ORDERED: POTASSIUM CHLORIDE CRTAB 20 MEQ TABCR PO SCH (09:00)
--- NOTE | 2024-03-31 09:52 | Hospitalist Progress Note ---
Date of Service March 31, 2024 Assessment & Plan (1) Hypotension: Plan: Ms. Machuca is a 58yoF with PMHx significant for hypertension, hyperlipidemia, DM 1 on insulin pump, VAHE, CKD (baseline creatinine 1.3), ADHD, anxiety/mood disorder, recent appendectomy on 03/02 with post-op hypotension, and recent prolonged admission for NSTEMI c/b retroperitoneal hematoma with compressive mass on bladder now s/p bilateral ureteral stents who is admitted due hypotens ion. Patient states that she was febrile to 102 F and hypotensive to 80s. Patient remained afebrile after that episode, but noted to be hypotensive in ED. Patient is s/p IVF and appears well. Notably ambulating the halls with her . CT AP revealed near resolution of hemorrhage within the right rectus abdominis and some mild improvement of hematoma in pelvis but still with some mass effect. The stents are inplace in bilateral ureters without signs of stranding/inflammation. Urology consulted: question of inflammatory cystitis v bacterial. #Hypotension #Fever remains afebrile since admission abnormal ua: inflammatory v bacterial cystitis Continue cefepime empirically Monitor fever curve, no other localizing signs of infection follow blood and urine culture #Abnormal UA #Suprapubic pain #Obstructive Uropathy 2/2 pelvic hematoma s/p cystoscopy bilateral stent placement #Microscopic hematuria -s/p bilateral stent placement and catheter placement for obstruction issues secondary to obstruction from large pelvic hematoma on 03/09 UA active however, no bacteria; seemingly inflammatory Urology consulted: -Continue empiric coverage for 48 hours until culture results -Will continue to follow and reevaluate #RO on Chronic Kidney Disease III likely prerenal iso hypotension, resolved with IV Renal function stable with resolution of hydronephrosis on imaging CTM #Chronic normocytic anemia #recent Retroperitoneal Bleed s/p LHC on 03/09 #Ongoing Pelvic Hematoma Recent acute blood loss anemia Hgb stable since d/c last month CTM cbc #Recent NSTEMI #Severe coronary artery disease s/p CHI to LAD s/p cardiac cath on 03/09, with placement of 2 stents in LAD -continue with aspirin and Brillinta -continue statin #Chronic heart failure with preserved ejection fraction #Right-sided heart failure Holding Lasix and potassium supplement Stop fluids, appears euvolemic Resolution of plueral effusions on imaging #Diabetes type 1 On insulin pump Will monitor #GERD Protonix #Anxiety and depression On fluoxetine and Adderall #Hyperlipidemia On statin DVT prophylaxis Heparin subcu. Monitor for any bleeding Disposition Telemetry Full code Admission and Anticipated Discharge Date Admission Date: March 30, 2024 Subjective NAEO denies any further episodes of palpitations or other acute concerns ambulating mcallister with and feeling fairly strong Reports over fever to 102 and hypotension Lasix discontinue on Tuesday this last week Reports good bowel movements, and appetite Denies urinary pain, but notes suprapubic discomfort Physical Exam Constitutional: WD/WN, vitals as above Respiratory: normal respiratory effort, lungs clear to auscultation Cardiovascular: RRR, no murmur, no edema Gastrointestinal (Abdomen): normal bowel sounds, soft, nontender, no hepatosplenomegaly Musculoskeletal: no cyanosis or clubbing, extremities motor strength 5/5 Results & Data Results & Data Vital Signs (Past 12 Hours) Vital Signs Temp Pulse Pulse Resp BP Pulse Ox O2 Del Method 03/31/24 08:09 37.0 C 74 20 126/74 98 Room Air 03/31/24 04:03 36.8 C 90 17 106/68 98 Room Air 03/31/24 01:06 89 03/30/24 23:43 Room Air 03/30/24 23:02 36.9 C 92 H 18 111/76 98 Room Air 03/30/24 22:43 36.9 C 92 H 18 111/76 98 Room Air Laboratory Results Short CBC 03/30/24 03/31/24 Range/Units 16:00 05:42 WBC 8.94 7.26 (4.8-10.8) K/ul Hgb 9.7 L 9.1 L (12.0-16.0) g/dl Hct 28.7 L 27.9 L (37.0-47.0) % Plt Count 487 H 407 H (130-400) K/uL BMP 03/30/24 03/31/24 16:00 05:42 Sodium 136 140 Potassium 4.2 4.3 Chloride 101 109 H Carbon Dioxide 25 24 BUN 26 H 22 Creatinine 1.65 H 1.32 H D Glucose 242 H 177 H Calcium 9.4 8.7 Liver Function 03/30/24 Range/Units 16:00 Total Bilirubin 0.7 (0.2-1.0) mg/dl AST 17 (13-39) U/L ALT 9 (7-52) U/L Alkaline Phosphatase 77 (34-104) U/L Albumin 3.7 (3.4-5.0) gm/dl Urine 03/30/24 Range/Units 17:19 Urine Color Red Urine Appearance Turbid A (Clear) Urine pH 7.5 (4.5-7.5) Ur Specific [place] 1.018 (1.000-1.030) Urine Protein 2+ H (Negative) Urine Glucose (UA) Trace H (Negative) Medications Administered Home Medications Medication Instructions Recorded Confirmed Last Taken albuterol sulfate 90 mcg/actuation 2 puff inhalation Q4 PRN .COUGH, 03/01/24 03/30/24 Unknown aerosol inhaler WHEEZING aspirin 81 mg tablet,delayed 81 mg PO QPM 03/01/24 03/30/24 Unknown release dextroamphetamine-amphetamine ER 20 mg PO DAILY .. 03/01/24 03/30/24 Unknown 20 mg 24hr capsule,extend release fluoxetine 40 mg capsule 40 mg PO QPM 03/01/24 03/30/24 Unknown insulin aspart U-100 100 unit/mL 0 unit subcut DIRECTED 03/01/24 03/30/24 Unknown subcutaneous solution (Novolog U-100 Insulin aspart) lovastatin 40 mg tablet 40 mg PO QPM 03/01/24 03/30/24 Unknown multivitamin-ferrous 1 tab PO DAILY 03/01/24 03/30/24 Unknown fumarate-folic acid 18 mg-400 mcg tablet (Centrum Complete) ondansetron HCl 4 mg tablet 4 mg PO Q8 PRN Nausea 03/01/24 03/30/24 Unknown semaglutide 1 mg/dose (4 mg/3 mL) 1 mg subcut .QFRIDAY 03/01/24 03/30/24 02/24/24 subcutaneous pen injector (Ozempic) oxycodone-acetaminophen 5 mg-325 1 tab PO Q6H PRN pain #10 tabs 03/02/24 03/30/24 Unknown mg tablet furosemide 20 mg tablet 20 mg PO QAM #30 tabs 03/17/24 03/30/24 Unknown pantoprazole 40 mg tablet,delayed 40 mg PO QAM #30 tabs 03/17/24 03/30/24 Unknown release potassium chloride 20 mEq 20 meq PO QAM #30 tabs 03/17/24 03/30/24 Unknown tablet,extended release(part/cryst) ticagrelor 90 mg tablet (Brilinta) 90 mg PO BID #60 tabs 03/17/24 03/30/24 Unknown tramadol 50 mg tablet 50 mg PO Q4H PRN pain #30 tabs 03/17/24 03/30/24 Unknown Active Medications Generic Name Dose Route Start Last Admin Trade Name Freq PRN Reason Stop Dose Admin Amphetamine/Dextroamphetamine 20 mg 03/31/24 09:00 03/31/24 08:39 Dextroamphetamine/Amphetamine Er 20 Mg Cap PO 04/14/24 08:59 Not Given DAILY KANDI Heparin Sodium (Porcine) 5,000 units 03/30/24 22:43 03/31/24 08:21 Heparin Sod 5,000 Unit/0.5 Ml Vial SQ 04/29/24 22:42 5,000 units Q12 KANDI Administration Cefepime HCl 2,000 mg/ Syringe 20 mls @ 5 mls/min 03/31/24 06:00 03/31/24 05:49 IV 04/10/24 05:59 5 mls/min Q12H KANDI Administration Protocol Insulin Aspart 1 each 03/31/24 07:30 03/31/24 12:19 Insulin, Rapid-Acting Pump N/A 04/30/24 07:29 1 each [facility] KANDI Administration Protocol Miscellaneous 0 each 03/31/24 07:30 03/31/24 12:19 Continuous Glucose Monitor N/A 04/30/24 07:29 1 each [facility] KANDI Administration Multivitamins/Minerals 1 tab 03/31/24 09:00 03/31/24 08:12 Cerovite Adv Formula Tab PO 04/30/24 08:59 1 tab DAILY KANDI Administration Pantoprazole Sodium 40 mg 03/31/24 09:00 03/31/24 08:12 Pantoprazole 40 Mg Tab PO 04/30/24 08:59 40 mg QAM KANDI Administration Ticagrelor 90 mg 03/31/24 09:00 03/31/24 08:13 Ticagrelor 90 Mg Tab PO 04/30/24 08:59 90 mg BID KANDI Administration
--- NOTE | 2024-03-31 12:28 | Urology Consultation ---
Date of Consultation March 31, 2024 Assessment & Plan (1) Pelvic hematoma, female: (2) Hypotension: (3) Hydronephrosis: (4) Hematoma: (5) Status post insertion of drug-eluting stent into left anterior descending (LAD) artery: (6) Non-ST elevation [place] (NSTEMI): (7) Acute kidney injury: (8) Intractable pain: (9) S/P ureteral stent placement: Plan Well-known patient with history of severe pelvic hematoma with expanding hematoma causing compression of the bladder likely a rectus sheath hematoma after lap appendectomy with anticoagulation afterwards due to non-STEMI and cardiac catheterization. Patient had been in the ICU and had undergone intensive care for a number of days with continued healing over the last few weeks. Patient had presented with worsening hypotension fevers ill feelings pelvic pain and concern. Patient had concern for possible developing infection. Patient had urgent/emergent stent placement at the time of the pelvic hematoma formation due to severe compression and displacement of the bladder causing compression and obstruction of the right ureter and due to the severity obstruction of the left ureter. Patient independently assessed, examined, interviewed, and evaluated. Agree with note as above. Patient's vitals and labs were all reviewed. Hemoglobin was 9.1. Creatinine 1.32. White count 7.26. Creatinine does appear to be improving over time. Patient's vitals were all reviewed as well blood pressure 112/74 pulse 88 respirations 18 temperature 36.7 oxygen saturation 97% on room air. Patient's imaging was reviewed interpreted by myself had CT scan yesterday. Pelvic hematoma does appear to be decreased in size. No signs of air or concern for developing infected hematoma or abscess. Still has persistent severe displacement of the bladder on imaging. Right ureter appears to have still considerable compression. Left ureter does appear to be somewhat improved with the decreasing size of the hematoma. Still has a large persistent hematoma in the pelvis. Pertinent values in the HPI and plan section. Imaging was reviewed interpreted by myself. Agree with read. Vitals were reviewed. Discussed findings extensively with patient and family. Reviewed with nurse practitioner as well as consulting physicians/team. Patient's complicated medical and surgical history was reviewed and summarized above. Patient's surgical, medical, social, and family history were all reviewed with pertinent values as above. Discussed patient's current diagnosis as well as concerns and issues. Reviewed different options moving forward. Discussed potential risks and benefits as well as possible options and concerns. Discussed concerns with the pelvic hematoma. At this point does not appear to be infected and no signs of abscess formation gas or other concerns for developing pelvic abscess. Still has considerable mechanical/compressive issues with the bladder and especially the right ureter. May take an extended period of time for the pelvic hematoma to decrease significantly to allow good drainage. May be causing considerable issues with bladder function may also be contributing to episodes of cystitis. Unsure if patient is having significant episodes of bacterial infections versus more inflammatory cystitis from the large hematoma the significant impression and displacement of the bladder and the placement of the stents. Reviewed different options moving forward including further management the stents possible placement of nephrostomy tubes or other alternatives. Discussed possible removal of stents as well. Reviewed potential surgical options and interventions. Discussed potential issues and concerns related to intervention. Risk and benefits were discussed extensively with patient and any available family. Discussed potential risks related to anesthesia. Discussed risks of bleeding infection and injury. Patient is on broad-spectrum antibiotics. Would likely continue this until cultures are finally available. Will likely be 48 hours to have full cultures and sensitivity. May be de-escalated once cultures and sensitivities are available. Patient likely dealing with significant size cystitis may be due to inflammatory issues as opposed to infectious cystitis. Also a majority of pelvic pain and discomfort are likely from the pelvic hematoma especially causing the stents and bladder to be displaced. May be contributing to some of the issues as well. Patient will likely have intermittent blood in the urine. Did review options for follow-up and possible management of the stents. Stents can remain in place for up to 3 months without typically major issues with good function. Creatinine appears to be improving. The left stent may be getting to the point that it may be able to be attempted to remove. Could consider removing it in the office versus setting patient up for a outpatient procedure to remove the left stent and to assess the right side to see if the right side would be removable or if it would need to be exchanged. Would likely allow further time for the patient to recover. Will also likely need to wait continued reduction and ongoing resolution of the pelvic hematoma as it does appear to be causing still considerable displacement of the bladder. Patient complicated medical and surgical history was reviewed and summarized above all imaging was reviewed interpreted by myself all lab work and vitals were reviewed and placed as above. Extensive conversation with patient about risk and benefits as well as the potential for more urgent or emergent procedure if patient develops pelvic abscess or if obstruction develops again. Patient complicated recent hospitalization with intensive care management and history was all reviewed and reviewed and discussed with the patient. Will plan to monitor moving forward. Will plan to reevaluate into next week with plans able to be finalized as the patient's clinical picture and recent episode continue to calm down. History of Present Illness Attending Physician: Damaris Sommer MD History of Present Illness New consultation on well-known patient with large pelvic hematoma who required urgent/emergent stent placement for obstruction of the right ureter and developing obstruction on the left from the large pelvic hematoma. Patient presented with hypotension ill feelings low-grade fevers and concern for UTI/Pyelo, discomfort, and ill feelings. Patient has had some minor episodes of sudden onset of pain into flank going down and radiating into groin and back in waves comes and goes. Likely related to the stents. Also has persistent pain in the pelvis likely due to the persistent hematoma in the pelvis causing considerable compression and pressure on the bladder and pelvic organs. Discomfort has been persistent and very rarely can be severe. Discussed and reviewed patient's family history for any history of issues, infections, and disease. Also, discussed patient's medical/surgery history especially related to any history of urinary issues. Patient was admitted and is undergoing observation with broad spectrum IV antibiotics. Stents were reevaluated with CT imaging done yesterday. Stents do appear to be in good position. The hematoma does appear to have decreased in size but is still causing considerable compression of the bladder with significant displacement of the right ureter. Allergies Allergy/AdvReac Type Severity Reaction Status Date / Time CHAPARRO Inhibitors Allergy Intermediate cough Verified 03/01/24 23:34 Penicillins Allergy Intermediate rash Verified 03/01/24 23:34 Home Medications Medication Instructions Recorded Confirmed Type albuterol sulfate 90 mcg/actuation 2 puff inhalation Q4 PRN .COUGH, 03/01/24 03/30/24 History aerosol inhaler WHEEZING aspirin 81 mg tablet,delayed 81 mg PO QPM 03/01/24 03/30/24 History release dextroamphetamine-amphetamine ER 20 mg PO DAILY .. 03/01/24 03/30/24 History 20 mg 24hr capsule,extend release fluoxetine 40 mg capsule 40 mg PO QPM 03/01/24 03/30/24 History insulin aspart U-100 100 unit/mL 0 unit subcut DIRECTED 03/01/24 03/30/24 History subcutaneous solution (Novolog U-100 Insulin aspart) lovastatin 40 mg tablet 40 mg PO QPM 03/01/24 03/30/24 History multivitamin-ferrous 1 tab PO DAILY 03/01/24 03/30/24 History fumarate-folic acid 18 mg-400 mcg tablet (Centrum Complete) ondansetron HCl 4 mg tablet 4 mg PO Q8 PRN Nausea 03/01/24 03/30/24 History semaglutide 1 mg/dose (4 mg/3 mL) 1 mg subcut .QFRIDAY 03/01/24 03/30/24 History subcutaneous pen injector (Ozempic) oxycodone-acetaminophen 5 mg-325 1 tab PO Q6H PRN pain #10 tabs 03/02/24 03/30/24 Rx mg tablet furosemide 20 mg tablet 20 mg PO QAM #30 tabs 03/17/24 03/30/24 Rx pantoprazole 40 mg tablet,delayed 40 mg PO QAM #30 tabs 03/17/24 03/30/24 Rx release potassium chloride 20 mEq 20 meq PO QAM #30 tabs 03/17/24 03/30/24 Rx tablet,extended release(part/cryst) ticagrelor 90 mg tablet (Brilinta) 90 mg PO BID #60 tabs 03/17/24 03/30/24 Rx tramadol 50 mg tablet 50 mg PO Q4H PRN pain #30 tabs 03/17/24 03/30/24 Rx Patient History Medical History Interstitial lung disease CKD (chronic kidney disease) stage 3, GFR 30-59 ml/min Cervical radiculopathy DM (diabetes mellitus), type 1 Surgical History Hx of eye surgery History of female sterilization History of carpal tunnel surgery Social History Smoking Status: Never smoker Second Hand Exposure: No; Do You Dip or Chew Tobacco: No; Hx Alcohol Use: Yes Alcohol type: wine Hx Substance Use: No Preferred Language: Korean Communication Ability: Effective Bridge Contractor Required: No Beliefs That Will Affect Care: None Current Living Situation: Spouse Other Information That Helps Us Care for You: No Feels Safe at Home: Yes Safety Concerns: Feels Safe At This Time Assistive Devices: None Review of Systems Review of Systems: All systems reviewed & are unremarkable except as noted in HPI & below Physical Exam Physical Exam: General: Alert and oriented x 3 in no acute distress. Patient is well nourished and well kept. HEENT: Normocephalic Atraumatic. Inspection normal. Cranial Nerves 2-12 Grossly intact. Nares are clear. Neck is supple. Normal inspection of face. Normal inspection of neck. Neurologic: No deficits on inspection. Baseline for motor function and sensory. Psychologic: Normal affect. Respiratory: Nonlabored. No use of accessory muscles. No tachypnea or dyspnea. Cardiovascular: No tachycardia Skin: [place] and Dry. No rashes or visible lesions. Extremities: Moving without issues. No motor deficits on inspection Lymphatics: No edema Abdomen: Soft Non-distended. No rebound or guarding. Significant pelvic tenderness. Results & Data Vital Signs (Past 12 Hours) Vital Signs Temp Pulse Pulse Resp BP Pulse Ox O2 Del Method 03/31/24 11:38 36.7 C 88 18 112/74 97 Room Air 03/31/24 08:09 37.0 C 74 20 126/74 98 Room Air 03/31/24 04:03 36.8 C 90 17 106/68 98 Room Air 03/31/24 01:06 89 PG Care Time/CCT Total # of Minutes Spent Total Time Spent with Patient: Total time spent is greater than 50% in coordination of care (as documented) at patient's floor/unit and/or counseling patient: Coding Level of Care Code 49218 IN/OBS CONSULT LVL 5,80M Diagnoses Pelvic hematoma, female N94.89 Hypotension I95.9 Hydronephrosis N13.30 Hematoma T14.8XXA Status post insertion of drug-eluting stent into left anterior descending (LAD) artery Z95.5 Non-ST elevation [place] (NSTEMI) I21.4 Acute kidney injury N17.9 Intractable pain R52 S/P ureteral stent placement Z96.0
[2024-03-31] MEDS: oxyCODONE/ACETAMINOPHEN 5mg/325mg TAB PO PRN (17:56)
[2024-03-31] MEDS: LOVASTATIN 20 MG TAB PO SCH (20:52)
[2024-03-31] MEDS: FLUoxetine HCL 20 MG CAP PO SCH (20:53)
[2024-03-31] MEDS: ASPIRIN 81 MG ECTAB PO SCH (20:53)
[2024-03-31] MEDS: ACETAMINOPHEN 325 MG TAB PO PRN (20:59)
[2024-03-31] MEDS: bisacodyL 5 MG TABEC PO ONE (21:22)
[2024-04-01 07:02] LABS: Hematocrit (blood only) 26.2 % (37.0-47.0); Hemoglobin 8.8 g/dl (12.0-16.0); Mean Corpuscular Hemoglobin 33.1 pg (25.0-34.0); Mean Corpuscular Hgb Conc 33.6 g/dL (32.0-36.0); Mean Corpuscular Volume 98.5 fL (80.0-100.0); Mean Platelet Volume 10.1 fL (9.4-12.4); Platelet Count 410 K/uL (130-400); RDW Coefficient of Variation 15.6 % (11.5-14.5); RDW Standard Deviation 56.5 fL (36.4-46.3); Red Blood Count 2.66 M/uL (4.20-5.40); White Blood Count 7.12 K/ul (4.8-10.8)
[2024-04-01 07:29] LABS: Albumin Globulin Ratio 1.1 (0.9-2); Albumin Level 3.2 gm/dl (3.4-5.0); BUN Creatinine Ratio 13.8 (10-20); Bilirubin,Total 0.5 mg/dl (0.2-1.0); Calcium 9.2 mg/dl (8.6-10.3); Creatinine Clr Calc Pharmacy 44.4 ml/min; Est GFR (African American) 56.4 ml/min; Est GFR (Non-African American) 48.7 ml/min; Globulin 2.9 gm/dl (2.5-4.0); Magnesium 1.8 mg/dl (1.7-2.4); Phosphorus 4.2 mg/dl (2.5-4.9); Potassium 4.4 mmol/L (3.5-5.1); Total Protein 6.1 gm/dl (6.0-8.3)
[2024-04-01] MEDS: bisacodyL 5 MG TABEC PO PRN (08:54)
[2024-04-01 09:07] LABS: Appearance Urine Turbid (Clear); Bacteria Urine Automated None Seen (None Seen); Bilirubin Urine Negative (Negative); Blood Urine 3+ (Negative); Cast Urine Automated 0-2 /lpf (0-2); Color Urine Red; Epithelial Cell Urine Auto 0-2 /hpf (0-2); Glucose Urine UA Negative (Negative); Ketones Urine Negative (Negative); Leukocyte Esterase Urine 3+ (Negative); Nitrite Urine Negative (Negative); Protein Urine 2+ (Negative); RBC Urine Automated >20 /hpf (0-2); Specific Gravity Urine 1.015 (1.000-1.030); Urobilinogen Urine Negative (Negative); WBC Urine Automated >50 /hpf (0-5); pH Urine 6.5 (4.5-7.5)
--- NOTE | 2024-04-01 13:05 | Electrocardiogram Report ---
Test Reason : Blood Pressure : */* mmHG Vent. Rate : 92 BPM Atrial Rate : 92 BPM P-R Int : 120 ms QRS Dur : 76 ms QT Int : 360 ms P-R-T Axes : 41 52 53 degrees QTcB Int : 445 ms Normal sinus rhythm Low voltage QRS Nonspecific T wave abnormality Abnormal ECG When compared with ECG of 14-Mar-2024 06:20, No significant change Confirmed by Dwain Phelps ([id number]) on 04/01/2024 1:04:40 PM Referred By: Confirmed By: Dwain Phelps
--- NOTE | 2024-04-01 14:35 | Hospitalist Progress Note ---
Date of Service April 01, 2024 Assessment & Plan (1) Hypotension: Plan: Ms. Machuca is a 58yoF with PMHx significant for hypertension, hyperlipidemia, DM 1 on insulin pump, VAHE, CKD (baseline creatinine 1.3), ADHD, anxiety/mood disorder, recent appendectomy on 03/02 with post-op hypotension, and recent prolonged admission for NSTEMI c/b retroperitoneal hematoma with compressive mass on bladder now s/p bilateral ureteral stents who is admitted due hypotens ion. Patient states that she was febrile to 102 F and hypotensive to 80s. Patient remained afebrile after that episode, but noted to be hypotensive in ED. Patient is s/p IVF and appears well. Notably ambulating the halls with her . CT AP revealed near resolution of hemorrhage within the right rectus abdominis and some mild improvement of hematoma in pelvis but still with some mass effect. The stents are inplace in bilateral ureters without signs of stranding/inflammation. Urology consulted: question of inflammatory cystitis v bacterial. UA from admission with multiple arian, therefore repeat collected. Patient otherwise afebrile and seems to be doing well over all on IV cefepime. Discussed likely dispo tomorrow with plans to deescalate abx based upon prior sensitives given presence of stents. UA is very active on repeat, similar to prior on admission #Hypotension #Fever remains afebrile since admission abnormal ua: inflammatory v bacterial cystitis Continue cefepime empirically Monitor fever curve, no other localizing signs of infection blood cx NGTD follow repeat urine culture #Abnormal UA #Suprapubic pain #Obstructive Uropathy 2/2 pelvic hematoma s/p cystoscopy bilateral stent placement #Microscopic hematuria -s/p bilateral stent placement and catheter placement for obstruction issues secondary to obstruction from large pelvic hematoma on 03/09 UA active however, no bacteria; seemingly inflammatory Urology consulted: -Continue empiric coverage for 48 hours until culture results -Will continue to follow and reevaluate Repeat UA consistent #RO on Chronic Kidney Disease III resolved likely prerenal iso hypotension, resolved with IV Renal function stable with resolution of hydronephrosis on imaging CTM #Chronic normocytic anemia #recent Retroperitoneal Bleed s/p LHC on 03/09 #Ongoing Pelvic Hematoma Recent acute blood loss anemia Hgb stable since d/c last month CTM cbc #Recent NSTEMI #Severe coronary artery disease s/p CHI to LAD s/p cardiac cath on 03/09, with placement of 2 stents in LAD -continue with aspirin and Brillinta -continue statin #Chronic heart failure with preserved ejection fraction #Right-sided heart failure Holding Lasix and potassium supplement Stop fluids, appears euvolemic Resolution of pleural effusions on imaging #Diabetes type 1 On insulin pump Will monitor #GERD Protonix #Anxiety and depression On fluoxetine and Adderall #Hyperlipidemia On statin DVT prophylaxis Heparin subcu. Monitor for any bleeding Disposition Telemetry Full code Admission and Anticipated Discharge Date Admission Date: March 30, 2024 Subjective CR Reports feeling well over all Denies further episodes of palpitations or fevers, reports she feels strong and otherwise near ready for discharge Physical Exam Constitutional: WD/WN, vitals as above Respiratory: normal respiratory effort, lungs clear to auscultation Cardiovascular: RRR, no murmur, no edema Gastrointestinal (Abdomen): normal bowel sounds, soft, nontender, no hepatosplenomegaly Musculoskeletal: no cyanosis or clubbing, extremities motor strength 5/5 Results & Data Results & Data Vital Signs (Past 12 Hours) Vital Signs Temp Pulse Pulse Resp BP BP Pulse Ox 04/01/24 11:51 36.7 C 100 H 18 105/66 97 04/01/24 08:04 36.7 C 85 20 106/68 98 04/01/24 08:00 76 04/01/24 03:44 36.9 C 82 16 113/69 98 O2 Del Method 04/01/24 11:51 Room Air 04/01/24 08:04 Room Air 04/01/24 08:00 04/01/24 03:44 Room Air Laboratory Results Short CBC 04/01/24 Range/Units 06:38 WBC 7.12 (4.8-10.8) K/ul Hgb 8.8 L (12.0-16.0) g/dl Hct 26.2 L (37.0-47.0) % Plt Count 410 H (130-400) K/uL BMP 04/01/24 06:38 Sodium 140 Potassium 4.4 Chloride 108 H Carbon Dioxide 27 BUN 17 Creatinine 1.23 H Glucose 122 H Calcium 9.2 Liver Function 04/01/24 Range/Units 06:38 Total Bilirubin 0.5 (0.2-1.0) mg/dl AST 16 (13-39) U/L ALT 9 (7-52) U/L Alkaline Phosphatase 61 (34-104) U/L Albumin 3.2 L (3.4-5.0) gm/dl Urine 04/01/24 Range/Units 08:20 Urine Color Red Urine Appearance Turbid A (Clear) Urine pH 6.5 (4.5-7.5) Ur Specific [place] 1.015 (1.000-1.030) Urine Protein 2+ H (Negative) Urine Glucose (UA) Negative (Negative) Medications Administered Home Medications Medication Instructions Recorded Confirmed Last Taken albuterol sulfate 90 mcg/actuation 2 puff inhalation Q4 PRN .COUGH, 03/01/24 03/30/24 Unknown aerosol inhaler WHEEZING aspirin 81 mg tablet,delayed 81 mg PO QPM 03/01/24 03/30/24 Unknown release dextroamphetamine-amphetamine ER 20 mg PO DAILY .. 03/01/24 03/30/24 Unknown 20 mg 24hr capsule,extend release fluoxetine 40 mg capsule 40 mg PO QPM 03/01/24 03/30/24 Unknown insulin aspart U-100 100 unit/mL 0 unit subcut DIRECTED 03/01/24 03/30/24 Unknown subcutaneous solution (Novolog U-100 Insulin aspart) lovastatin 40 mg tablet 40 mg PO QPM 03/01/24 03/30/24 Unknown multivitamin-ferrous 1 tab PO DAILY 03/01/24 03/30/24 Unknown fumarate-folic acid 18 mg-400 mcg tablet (Centrum Complete) ondansetron HCl 4 mg tablet 4 mg PO Q8 PRN Nausea 03/01/24 03/30/24 Unknown semaglutide 1 mg/dose (4 mg/3 mL) 1 mg subcut .QFRIDAY 03/01/24 03/30/24 02/24/24 subcutaneous pen injector (Ozempic) oxycodone-acetaminophen 5 mg-325 1 tab PO Q6H PRN pain #10 tabs 03/02/24 03/30/24 Unknown mg tablet furosemide 20 mg tablet 20 mg PO QAM #30 tabs 03/17/24 03/30/24 Unknown pantoprazole 40 mg tablet,delayed 40 mg PO QAM #30 tabs 03/17/24 03/30/24 Unkno wn release potassium chloride 20 mEq 20 meq PO QAM #30 tabs 03/17/24 03/30/24 Unknown tablet,extended release(part/cryst) ticagrelor 90 mg tablet (Brilinta) 90 mg PO BID #60 tabs 03/17/24 03/30/24 Unknown tramadol 50 mg tablet 50 mg PO Q4H PRN pain #30 tabs 03/17/24 03/30/24 Unknown Active Medications Generic Name Dose Route Start Last Admin Trade Name Freq PRN Reason Stop Dose Admin Acetaminophen 650 mg 03/30/24 22:43 03/31/24 20:59 Acetaminophen 325 Mg Tab PO 04/29/24 22:42 650 mg Q4H PRN Administration Pain or Fever Amphetamine/Dextroamphetamine 20 mg 03/31/24 09:00 04/01/24 08:48 Dextroamphetamine/Amphetamine Er 20 Mg Cap PO 04/14/24 08:59 Not Given DAILY KANDI Aspirin 81 mg 03/31/24 21:00 03/31/24 20:53 Aspirin 81 Mg Ectab PO 04/30/24 20:59 81 mg QPM KANDI Administration Bisacodyl 5 mg 03/31/24 21:14 04/01/24 08:54 Bisacodyl 5 Mg Tabec PO 04/30/24 21:13 5 mg DAILY PRN Administration Constipation Fluoxetine HCl 40 mg 03/31/24 21:00 03/31/24 20:53 Fluoxetine Hcl 20 Mg Cap PO 04/30/24 20:59 40 mg QPM KANDI Administration Heparin Sodium (Porcine) 5,000 units 03/30/24 22:43 04/01/24 08:48 Heparin Sod 5,000 Unit/0.5 Ml Vial SQ 04/29/24 22:42 Not Given Q12 KANDI Cefepime HCl 2,000 mg/ Syringe 20 mls @ 5 mls/min 03/31/24 06:00 04/01/24 06:23 IV 04/10/24 05:59 5 mls/min Q12H KANDI Administration Protocol Insulin Aspart 1 each 03/31/24 07:30 04/01/24 13:25 Insulin, Rapid-Acting Pump N/A 04/30/24 07:29 1 each ACHS KANDI Administration Protocol Lovastatin 40 mg 03/31/24 21:00 03/31/24 20:52 Lovastatin 20 Mg Tab PO 04/30/24 20:59 40 mg QPM KANDI Administration Miscellaneous 0 each 03/31/24 07:30 04/01/24 13:25 Continuous Glucose Monitor N/A 04/30/24 07:29 1 each ACHS KANDI Administration Multivitamins/Minerals 1 tab 03/31/24 09:00 04/01/24 08:55 Cerovite Adv Formula Tab PO 04/30/24 08:59 1 tab DAILY KANDI Administration Oxycodone/Acetaminophen 1 tab 03/30/24 22:43 04/01/24 00:08 Oxycodone/Acetaminophen 5mg/325mg Tab PO 04/13/24 22:42 1 tab Q6H PRN Administration pain Pantoprazole Sodium 40 mg 03/31/24 09:00 04/01/24 08:55 Pantoprazole 40 Mg Tab PO 04/30/24 08:59 40 mg QAM KANDI Administration Ticagrelor 90 mg 03/31/24 09:00 04/01/24 09:12 Ticagrelor 90 Mg Tab PO 04/30/24 08:59 90 mg BID KANDI Administration
[2024-04-01] MEDS: DICLOFENAC SOD 1% GEL 100 GM TUBE EXT SCH (18:44)
[2024-04-02 07:30] VITALS: RESP 18
[2024-04-02 10:59] VITALS: PULSE 81; TEMP 98.6; O2SAT 99
[2024-04-02 11:36] VITALS: BP 113/69
[2024-04-02] MEDS: CIPROFLOXACIN 500 MG TAB PO STA (11:52)
--- NOTE | 2024-04-02 12:11 | Discharge Summary ---
Discharge Summary Date of Service April 02, 2024 Principal Dx & Hospital Course #1 = Principal Diagnosis (1) Hypotension: Ms. Machuca is a 58yoF with PMHx significant for hypertension, hyperlipidemia, DM 1 on insulin pump, VAHE, CKD (baseline creatinine 1.3), ADHD, anxiety/mood disorder, recent appendectomy on 03/02 with post-op hypotension, and recent prolonged admission for NSTEMI c/b retroperitoneal hematoma with compressive mass on bladder now s/p bilateral ureteral stents who is admitted due hypotension. Patient states that she was febrile to 102 F and hypotensive to 80s. Patient remained afebrile after that episode, but noted to be hypotensive in ED. Patient is s/p IVF and appears well. Notably ambulating the halls with her . CT AP revealed near resolution of hemorrhage within the right rectus abdominis and some mild improvement of hematoma in pelvis but still with some mass effect. The stents are inplace in bilateral ureters without signs of stranding/inflammation. Urology consulted: question of inflammatory cystitis v bacterial. UA from admission with multiple arian, therefore repeat collected. Patient otherwise afebrile and seems to be doing well over all on IV cefepime. No further fevers or hypotension. Plan to deescalate abx to ciprofloxacin, as there is no clear source for the fever on admission and patient with recent complicated history. Follow up established with Urology for stent removal/eval. On day of discharge, patient doing well and eating well without acute concerns. #Hypotension #Fever remains afebrile since admission abnormal ua: inflammatory v bacterial cystitis Continue cefepime empirically Monitor fever curve, no other localizing signs of infection blood cx NGTD UA just as active as prior; given stents, fever/hypotension and complex history, will continue short course of ciprofloxacin BID x 5 days #Abnormal UA #Suprapubic pain #Obstructive Uropathy 2/2 pelvic hematoma s/p cystoscopy bilateral stent placement #Microscopic hematuria -s/p bilateral stent placement and catheter placement for obstruction issues secondary to obstruction from large pelvic hematoma on 03/09 UA active however, no bacteria; seemingly inflammatory Urology consulted: -UA with multiple organisms, will continue to treat ua course with ciprofloxacin #RO on Chronic Kidney Disease III resolved likely prerenal iso hypotension, resolved with IV Renal function stable with resolution of hydronephrosis on imaging CTM #Chronic normocytic anemia #recent Retroperitoneal Bleed s/p LHC on 03/09 #Ongoing Pelvic Hematoma Recent acute blood loss anemia Hgb stable since d/c last month CTM cbc #Recent NSTEMI #Severe coronary artery disease s/p CHI to LAD s/p cardiac cath on 03/09, with placement of 2 stents in LAD -continue with aspirin and Brillinta -continue statin #Chronic heart failure with preserved ejection fraction #Right-sided heart failure Holding Lasix and potassium supplement Stop fluids, appears euvolemic Resolution of pleural effusions on imaging #Diabetes type 1 On insulin pump Will monitor #GERD Protonix #Anxiety and depression On fluoxetine and Adderall #Hyperlipidemia On statin Notes For Next Care Provider Medication Changes From Visit Ciproflaoxcin 500mg bid x5 days Admission HPI Per Admitting Provider 58-year-old female with past medical history significant for type 1 diabetes on insulin pump, diabetic nephropathy, CKD stage III, hyperlipidemia, Graves' disease, history of hyperkalemia, history of sleep apnea but not using CPAP, history of non-ST elevated CA, history of right-sided heart failure, hypertension, obesity, anxiety, depression, history of COVID, who recently had prolonged hospital course comes because of hypotension and fever at home. Patient on 03/02 had appendectomy with postop hypotension which improved with fluids. And she also found to have UTI and given cefdinir to complete antibiotic course and was discharged on 03/05 to follow up as outpatient, patient came back on 03/05 because of weakness and found to be in severe sepsis/septic shock with UTI and possible pneumonia and RO with creatinine of 3.3 and non-ST elevated CA and CHF with pleural effusions and anasarca. She was monitored in the ICU. On 03/09 she had cardiac cath and status post 2 stents to LAD started on aspirin and Brilinta. Her hemoglobin dropped to 7.1 received 2 units of PRBCs. And imaging studies on 03/09 showed acute retroperitoneal bleed and was managed conservatively with a plan to repeat imaging in 4 to 6 weeks and she also developed obstructive uropathy secondary to pelvic hematoma s/p cystoscopy and bilateral stent placements. Patient had IV diuresis for volume overload. Patient did okay and was discharged home on 03/17/24. Today morning patient developed fever and and her systolic blood pressure was in 80s. In the aft ernoon blood pressure improved but still has having fever and feeling weak and came to the ER. Was having shortness of breath on exertion. Denies any chest pain. No headaches. No sore throat or cough. Appetite is okay. She still has hematuria. Normal bowel movements.Has lower abdominal pains. In the ER her systolic blood pressure in 80s but improved with the fluids. Patient currently resting comfortably and hemodynamically stable and not sick appearing. Past medical history as mentioned above Past surgical history. Cardiac cath. . Bilateral cystoscopy. Injection of lumbosacral spine. Laparoscopic appendectomy. Ligation ordered. Cataracts. Social history. . No smoking. Alcohol rarely. No drug use. Family history. Brother had type 1 diabetes. Father had lung disorder. Admission Exam Per Admitting Provider Constitutional: WD/WN, vitals as above Respiratory: normal respiratory effort, lungs clear to auscultation Cardiovascular: RRR, no murmur, no edema Gastrointestinal (Abdomen): normal bowel sounds, soft, nontender, no hepatosplenomegaly Musculoskeletal: no cyanosis or clubbing, extremities motor strength 5/5 Discharge Exam Constitutional WD/WN, vitals as above Respiratory normal respiratory effort, lungs clear to auscultation Cardiovascular RRR, no murmur, no edema Gastrointestinal (Abdomen) normal bowel sounds, soft, nontender, no hepatosplenomegaly Updated Medication List Medication Instructions Recorded Confirmed Type albuterol sulfate 90 mcg/actuation 2 puff inhalation Q4 PRN .COUGH, 03/01/24 03/30/24 History aerosol inhaler WHEEZING aspirin 81 mg tablet,delayed 81 mg PO QPM 03/01/24 03/30/24 History release dextroamphetamine-amphetamine ER 20 mg PO DAILY .. 03/01/24 03/30/24 History 20 mg 24hr capsule,extend release fluoxetine 40 mg capsule 40 mg PO QPM 03/01/24 03/30/24 History insulin aspart U-100 100 unit/mL 0 unit subcut DIRECTED 03/01/24 03/30/24 History subcutaneous solution (Novolog U-100 Insulin aspart) lovastatin 40 mg tablet 40 mg PO QPM 03/01/24 03/30/24 History multivitamin-ferrous 1 tab PO DAILY 03/01/24 03/30/24 History fumarate-folic acid 18 mg-400 mcg tablet (Centrum Complete) ondansetron HCl 4 mg tablet 4 mg PO Q8 PRN Nausea 03/01/24 03/30/24 History semaglutide 1 mg/dose (4 mg/3 mL) 1 mg subcut .QFRIDAY 03/01/24 03/30/24 History subcutaneous pen injector (Ozempic) furosemide 20 mg tablet 20 mg PO QAM #30 tabs 03/17/24 03/30/24 Rx pantoprazole 40 mg tablet,delayed 40 mg PO QAM #30 tabs 03/17/24 03/30/24 Rx release potassium chloride 20 mEq 20 meq PO QAM #30 tabs 03/17/24 03/30/24 Rx tablet,extended release(part/cryst) ticagrelor 90 mg tablet (Brilinta) 90 mg PO BID #60 tabs 03/17/24 03/30/24 Rx tramadol 50 mg tablet 50 mg PO Q4H PRN pain #30 tabs 03/17/24 03/30/24 Rx ciprofloxacin HCl 500 mg tablet 500 mg PO BID #9 tabs 04/02/24 Rx oxycodone-acetaminophen 5 mg-325 1 tab PO Q6H PRN pain #10 tabs 04/02/24 Rx mg tablet Hospital Stay Data Consultations 03/30/24 19:31 ED Decision to Admit Stat 03/31/24 09:50 Consult Urology Routine Diagnostic Imagining Performed 03/30/24 16:45 CT abd pelvis wo con Stat Pending Results Patient Have Any Pending Studies at Discharge: No Discharge Instructions Given to Patient (Per Discharging Provider) You were admitted for concern of hypotension and fevers. There was concern about our urine, however, no organism was isolated. Urology evaluated you and felt this could be inflammatory versus bacterial cystitis. We will complete a course of oral antibiotics. You received the first dose in the hospital. You will take your next this evening. Total Time Total Time Spent Total Time Spent (In Minutes): 45
== END 2024-04-02 12:16 | disposition home or self-care (01) | DRG 760 ==
LOC: ED 15:37 → 2S 20:45

== ENCOUNTER 2025-03-29 18:35 | Inpatient (IN) ==
[2025-03-29 19:42] LABS: Hematocrit (blood only) 39.0 % (37.0-47.0); Hemoglobin 13.6 g/dl (12.0-16.0); Immature Granulocytes # (auto) 0.01 K/uL (0.01-0.20); Immature Granulocytes % (auto) 0.1 %; Mean Corpuscular Hemoglobin 32.5 pg (25.0-34.0); Mean Corpuscular Volume 93.1 fL (80.0-100.0); Platelet Count 260 K/uL (130-400); RDW Standard Deviation 43.8 fL (36.4-46.3); Red Blood Count 4.19 M/uL (4.20-5.40); White Blood Count 6.81 K/ul (4.8-10.8)
--- NOTE | 2025-03-29 19:42 | XRay Report ---
Clinical History: Trauma Technique: A frontal view of the chest was obtained Comparison is made to the prior examination dated 03/30/2024 Findings: There are no confluent pulmonary infiltrates. The heart size is within normal limits. No pleural effusion or pneumothorax is seen. There is no definite pulmonary nodule. No fracture is noted. No foreign body is seen Impression: No active disease Electronically signed by Brad Dutta 03-29-2025 7:42 PM
--- NOTE | 2025-03-29 19:43 | XRay Report ---
Clinical History: Trauma One view of the pelvis is submitted for review. Findings: No fracture or dislocation is seen. No significant arthritic changes are noted. No other osseous abnormality is identified. There is a device projecting over the right iliac crest Impression: No definite pelvic fracture Electronically signed by Brad Dutta 03-29-2025 7:43 PM
--- NOTE | 2025-03-29 20:01 | CT Scan Report ---
Clinical History: Injury. Technique: Axial computed tomography images were obtained of the brain from the vertex to the skull base without intravenous contrast. Findings: There is no sign of intracranial hemorrhage. There is normal wilkins-white matter differentiation with no sign of acute or old infarction. No midline shift or other form of herniation is identified. There is no hydrocephalus. No obvious mass lesion is seen on this noncontrast examination. The visualized portions of the orbits and paranasal sinuses appear unremarkable. The mastoid air cells appear clear Impression: Unremarkable noncontrast CT of the brain Electronically signed by Brad Dutta 03-29-2025 8:01 PM
[2025-03-29] MEDS: SODIUM CHLORIDE 0.9% 1,000 ML IV ONE (20:03)
[2025-03-29 20:06] LABS: Alanine Aminotransferase 48 U/L (7-52); Albumin Globulin Ratio 1.4 (0.9-2); Alkaline Phosphatase 85 U/L (34-104); Anion Gap 9 (3-11); Bilirubin,Total 0.5 mg/dl (0.2-1.0); Blood Urea Nitrogen 25 mg/dl (6-23); Calcium 9.8 mg/dl (8.6-10.3); Carbon Dioxide 25 mmol/L (21-32); Chloride 103 mmol/L (98-107); Creatine Kinase 800 U/L (26-192); Creatinine Clr Calc Pharmacy 21.8 ml/min; Globulin 3.1 gm/dl (2.5-4.0); Glucose 215 mg/dl (70-99(Fasting)); Lipase 42 U/L (11-82); Sodium 137 mmol/L (136-145); Total Protein 7.3 gm/dl (6.0-8.3)
--- NOTE | 2025-03-29 20:06 | CT Scan Report ---
Clinical history: Injury Technique: Axial computed tomography images were obtained of the cervical spine without intravenous contrast. Sagittal and coronal reconstructions were obtained Comparison is made to the MRI of the cervical spine dated 10/27/2018 Findings: No fracture is identified. No listhesis is seen. No focal osseous lesion is evident. There is atlantoaxial osteoarthritis At C2-3, there is a disc bulge without spinal stenosis. There is mild left neural foramen narrowing At C3-4, there is spinal stenosis due to a disc bulge and a central disc protrusion. There is left neural foramen narrowing that may affect the left C4 nerve root At C4-5, there is spinal stenosis due to a disc bulge and a broad-based central disc protrusion. The neural foramen are patent At C5-6, there is spinal stenosis due to a disc bulge and a right paracentral disc protrusion. The neural foramen are patent At C6-7, there is spinal stenosis due to a disc bulge and a left paracentral disc protrusion. There is left neural foramen narrowing that may affect the left C7 nerve root At C7-T1, there is a disc bulge without spinal stenosis. The neural foramen are patent There are apparent small thyroid nodules. No foreign body is seen Impression: 1. No definite cervical spine fracture 2. Spinal stenosis from C3-4 through C6-7 3. Left C3-4 and C6-7 neural foramen narrowing that may affect the exiting nerve roots 4. Indeterminate thyroid nodules. A follow-up thyroid ultrasound could be obtained ACT 112: Positive. There are findings on this exam that require communication between the performing entity and the patient following Patient Test Result Information Act ([place] ACT 112) guidelines. Electronically signed by Brad Dutta 03-29-2025 8:06 PM
--- NOTE | 2025-03-29 20:09 | CT Scan Report ---
Clinical History: Trauma Technique: Axial computed tomography images were obtained of the abdomen and pelvis without intravenous contrast. Comparison is made to the prior CT dated 07/19/2024 Findings: The liver is overall of normal size, attenuation, and contour with no sign of cirrhosis or significant fatty infiltration. No definite liver mass lesion is seen on this noncontrast study. The gallbladder appears unremarkable. No bile duct dilatation is noted. The spleen is of normal size. No focal splenic lesion is evident. The pancreas appears normal with no sign of acute or chronic pancreatitis and no mass lesion noted. The pancreatic duct is of normal caliber. The adrenal glands appear unremarkable. No renal or proximal ureteral calculi are seen. There is no hydronephrosis or perinephric stranding. No definite renal mass lesion is identified. The right ureteral stent seen before has been removed The aorta is of normal caliber. No abdominal adenopathy is seen. The stomach appears normal. There is no sign of small bowel obstruction. The colon appears unremarkable. The appendix has been removed. No free intraperitoneal fluid or air is identified. There has been interval decrease in size of a thick-walled fluid collection right anterior to the urinary bladder. This measures 3.2 x 2.2 cm, previously 5.7 x 4.9 cm. There is mild adjacent soft tissue stranding No distal ureteral or bladder calculi are seen. No obvious bladder mass lesion is evident. The iliac arteries are of normal caliber. No pelvic adenopathy is noted. The lung bases appear clear. There is coronary atherosclerosis No fracture is identified. No focal osseous lesion is seen Impression: 1. No definite sign of abdominal organ injury after trauma 2. Interval decrease in size of a complex fluid collection adjacent to the urinary bladder, which may represent a resolving hematoma. No acute hemorrhage is seen Electronically signed by Brad Dutta 03-29-2025 8:09 PM
[2025-03-29 20:12] LABS: INR 0.9 (0.9-1.1); Partial Thromboplastin Time 28 Seconds (21-31); Prothrombin Time 10.2 Seconds (9.0-12.0)
--- NOTE | 2025-03-29 20:17 | Emergency Department Note ---
History of Present Illness General Chief complaint: Trauma Stated complaint: LOW BP, FALL Time Seen by Provider: 03/29/25 19:11 History of Present Illness Provider complaint: Syncope Maximum Pain Intensity: 5 51-year-old female on Brilinta presents emergency department for syncope. Patient states she passed out at 5 PM. Patient states she is not sure how long she was on the ground for what happened. Patient states she woke up on the ground. states he found her and set her blood pressure was very low. Patient reporting headache and neck pain. Home Medications Medication Instructions Recorded Confirmed Type albuterol sulfate 90 mcg/actuation 2 puff inhalation Q4 PRN prn 03/01/24 01/09/25 History aerosol inhaler aspirin 81 mg tablet,delayed 81 mg PO QPM 03/01/24 01/09/25 History release dextroamphetamine-amphetamine ER 20 mg PO DAILY PRN prn 03/01/24 01/09/25 History 20 mg 24hr capsule,extend release fluoxetine 40 mg capsule 40 mg PO QPM 03/01/24 01/09/25 History insulin aspart U-100 100 unit/mL 0 unit subcut DIRECTED 03/01/24 01/09/25 History subcutaneous solution (Novolog U-100 Insulin aspart) lovastatin 40 mg tablet 40 mg PO QPM 03/01/24 01/09/25 History multivitamin-ferrous 1 tab PO QPM 03/01/24 01/09/25 History fumarate-folic acid 18 mg-400 mcg tablet (Centrum Complete) ticagrelor 90 mg tablet (Brilinta) 90 mg PO BID #60 tabs 03/17/24 01/09/25 Rx estradiol 0.01% (0.1 mg/gram) 1 appful vaginal DAILY #42.5 grams 12/25/24 01/09/25 Rx vaginal cream losartan 25 mg tablet 12.5 mg PO DAILY 12/25/24 01/09/25 History rosuvastatin 40 mg tablet 40 mg PO DAILY 12/25/24 01/09/25 History semaglutide 1 mg/dose (4 mg/3 mL) mg subcut 12/25/24 01/09/25 History subcutaneous pen injector (Ozempic) Allergies Allergy/AdvReac Type Severity Reaction Status Date / Time CHAPARRO Inhibitors Allergy Intermediate cough Verified 01/09/25 12:57 Penicillins Allergy Intermediate rash Verified 01/09/25 12:57 Past Med/Surg History Problem List (Updated 03/29/25 @ 20:28 by Klaus Nair MD) RO (acute kidney injury) (Acute) Syncope (Acute) Stage 3b chronic kidney disease Vitamin D deficiency Atrophic vaginitis (Acute) Urinary symptom or sign Urinary obstruction (Chronic) Anemia (Acute) Fever (Acute) Hypotension (Acute) Pelvic hematoma, female (Chronic) Hypotension Abdominal pain Bilateral pleural effusion Intra abdominal hemorrhage Acute blood loss anemia Status post insertion of drug-eluting stent into left anterior descending (LAD) artery Hematoma Hydronephrosis CAD (coronary artery disease) Hypertension Acute right-sided heart failure Pleural effusion Pulmonary hypertension Shock Type 1 diabetes mellitus (Acute) Non-ST elevation AL (NSTEMI) (Acute) Acute renal failure (Acute) Sepsis (Acute) UTI due to Klebsiella species Acute kidney injury COVID-19 (Acute) Intractable pain (Acute) Neck muscle spasm (Acute) Encounter for medication refill (Acute) Encounter for medication refill (Acute) Alcoholic intoxication (Acute) Medical History UTI (urinary tract infection) ARF (acute renal failure) Right ventricular dysfunction 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 hospitalization, after appendectomy Pelvic hematoma, female History of sepsis (02/2024) History of pleural effusion 02/2024 Depression Anxiety Hypercholesteremia Sleep apnea no device History of non-ST elevation myocardial infarction (NSTEMI) (02/2024) stents 02/[address] Hoff, next appointment 05/07/2024 Interstitial lung disease patient denies CKD (chronic kidney disease) stage 3, GFR 30-59 ml/min Cervical radiculopathy DM (diabetes mellitus), type 1 insulin pump Surgical History S/P ureteral stent placement S/P ureteral stent placement History of appendectomy History of cataract surgery bilateral History of cardiac catheterization 02/2024 per records-status post right and left heart catheterization with two drug-eluting stents placed in the mid left anterior descending artery History of female sterilization History of carpal tunnel surgery bilateral Social History Smoking Status: Never smoker Second Hand Exposure: No; Do You Dip or Chew Tobacco: No; Hx Alcohol Use: Yes Alcohol type: wine Hx Substance Use: No Preferred Language: Lao Communication Ability: Effective Marketing Assistant Required: No Beliefs That Will Affect Care: None Current Living Situation: Spouse current occupational status: unemployed How many Children do You have: 1 Feels Safe at Home: Yes Diet: regular caffeine: Yes Physical Activity Frequency: Daily Physical Activity Frequency Comment: Dog walks Assistive Devices: Glasses Physical Exam Vital Signs Vital Signs - 24 hr 03/29/25 18:37 03/29/25 19:29 03/29/25 19:30 Temperature 36.8 C 36.5 C Temperature Source Temporal Artery Scan Oral Pulse Rate 77 79 Pulse Rate [Finger] 74 Respiratory Rate 20 18 Blood Pressure 97/64 L Blood Pressure [Right Arm] 113/69 Blood Pressure Mean 75 Blood Pressure Mean [Right Arm] 83 Pulse Oximetry 100 98 Oxygen Delivery Method Room Air Room Air Oxygen Flow Rate Sepsis Recent Fever Within 48 Hours No Sepsis New/Unexplained Change in Mental Status N/A Sepsis Action Taken by Nursing No Action Required 03/29/25 19:30 03/29/25 20:00 Temperature 36.5 C 36.6 C Temperature Source Oral Pulse Rate 74 Pulse Rate [Finger] 71 Respiratory Rate 18 16 Blood Pressure 113/69 Blood Pressure [Right Arm] 117/78 Blood Pressure Mean Blood Pressure Mean [Right Arm] 91 Pulse Oximetry 98 100 Oxygen Delivery Method Room Air Room Air Oxygen Flow Rate 0 Sepsis Recent Fever Within 48 Hours Sepsis New/Unexplained Change in Mental Status Sepsis Action Taken by Nursing Primary Survey Airway: Intact Breathing: Normal, breath sounds equal bilaterally Circulation: Skin warm, distal pulses 2+, capillary refill less than 2 seconds Disability Pupils: Equal and reactive to light, 2 mm, brisk GCS: 15, E = 4 V=5 M= 6 Motor Function: Moves all extremities. Sensory: No deficits Secondary Survey GEN: Well developed and well-nourished HEAD: Normocephallic atruamatic EYES: Pupils round reactive to light, conjunctiva clear, extraocular movements intact, no raccoons eyes ENT: no root's sign, nares patent, oropharynx clear NECK: No JVD, midline trachea, no cervical spine tenderness HEART: Regular rate and rhythm LUNGS: Clear to auscultation bilaterally. CHEST: Chest wall non-tender, no bruising/deformity ABD: soft, non-tender, no rebound or guarding, MUSC: Pelvis stable. No step offs or deformities, T-L spine non tender NEURO: CNII-XII grossly intact, no sensory deficits Course Course 1910: The patient was evaluated in room D3A. A complete history and physical exam was performed Cardiac monitoring: An order was placed for continuous cardiac monitoring. The monitor shows a rate of 70 with sinus rhythm interpreted by mo 2022: Vital signs stable. Labs show a creatinine of 2.38 up from baseline of 1.7. CK is 800. Troponin is negative. CT showed no acute traumatic injury. Patient will be admitted for RO and syncope. Discussed case with [place] hospitalist Dr. Zamora who evaluate the patient for admission. Administered Medications Sodium Chloride (Nss) 1,000 mls @ 999 mls/hr IV .Q1H1M ONE Stop: 03/29/25 20:37 Last Admin: 03/29/25 20:03 Dose: 999 mls/hr Documented By: GRUPO Medical Decision Making Laboratory Data Attestation: I reviewed the patient's lab results. 03/29/25 19:24 03/29/25 19:24 Lab Results 03/29/25 03/29/25 Range/Units 19:24 19:34 WBC 6.81 (4.8-10.8) K/ul RBC 4.19 L (4.20-5.40) M/uL Hgb 13.6 (12.0-16.0) g/dl POC Hgb 14.6 (12.0-16.0) g/dl Hct 39.0 (37.0-47.0) % POC Hct 43 (37-47) % MCV 93.1 (80.0-100.0) fL MCH 32.5 (25.0-34.0) pg MCHC 34.9 (32.0-36.0) g/dL RDW Std Deviation 43.8 (36.4-46.3) fL RDW Coeff of Emma 12.8 (11.5-14.5) % Plt Count 260 (130-400) K/uL MPV 10.1 (9.4-12.4) fL Immature Gran % (Auto) 0.1 % Neut % (Auto) 67.3 % Lymph % (Auto) 22.3 % Thayer % (Auto) 9.5 % Eos % (Auto) 0.4 % Baso % (Auto) 0.4 % Neut # (Auto) 4.57 (1.40-6.50) K/uL Lymph # (Auto) 1.52 (1.20-3.40) K/uL Thayer # (Auto) 0.65 H (0.11-0.59) K/uL Eos # (Auto) 0.03 (0.00-0.50) K/uL Baso # (Auto) 0.03 (0.00-0.20) K/uL Immature Gran # (Auto) 0.01 (0.01-0.20) K/uL PT 10.2 (9.0-12.0) Seconds INR 0.9 (0.9-1.1) APTT 28 (21-31) Seconds PTT Ratio 1.0 POC Sodium 138 (135-144) mmol/L Sodium 137 (136-145) mmol/L POC Potassium 3.6 (3.3-5.0) mmol/L Potassium TNP POC Chloride 103 (101-112) mmol/L Chloride 103 (98-107) mmol/L Carbon Dioxide 25 (21-32) mmol/L POC Total CO2 24 (24-31) mmol/L Anion Gap 9 (3-11) POC Anion Gap 16.0 (16-25) mmol/L POC BUN 31 H (7-18) mg/dl BUN 25 H (6-23) mg/dl Creatinine 2.38 H (0.6-1.2) mg/dl POC Creatinine 2.6 H (0.6-1.3) mg/dl Est Cr Clr Drug Dosing 21.8 ml/min eGFR 23.07 BUN/Creatinine Ratio 10.5 (10-20) Glucose 215 H (70-99(Fasting)) mg/dl POC Glucose (other) 210 H (70-99) mg/dl Calcium 9.8 (8.6-10.3) mg/dl POC Ioniz Calcium Donna 1.20 (1.12-1.32) mmol/l Total Bilirubin 0.5 (0.2-1.0) mg/dl AST TNP ALT 48 (7-52) U/L Alkaline Phosphatase 85 (34-104) U/L Total Creatine Kinase 800 H (26-192) U/L Troponin I High Sens 10.2 (0-14) pg/ml Total Protein 7.3 (6.0-8.3) gm/dl Albumin 4.2 (3.4-5.0) gm/dl Globulin 3.1 (2.5-4.0) gm/dl Albumin/Globulin Ratio 1.4 (0.9-2) Lipase 42 (11-82) U/L Imaging Data Attestation: I personally reviewed and interpreted this imaging study as follows: My Impression: Chest x-ray: Chest x-ray negative. Airway clear. No pneumothorax. No consolidation. No cardiomegaly or cephalization.. No free air under the diaphragm. No fractures of the skeletal structures. Pelvis x-ray: No acute fracture or dislocation Radiologist's Impression: Cervical Spine CT 03/29/25 19:16 Clinical history: Injury Technique: Axial computed tomography images were obtained of the cervical spine without intravenous contrast. Sagittal and coronal reconstructions were obtained Comparison is made to the MRI of the cervical spine dated 10/27/2018 Findings: No fracture is identified. No listhesis is seen. No focal osseous lesion is evident. There is atlantoaxial osteoarthritis At C2-3, there is a disc bulge without spinal stenosis. There is mild left neural foramen narrowing At C3-4, there is spinal stenosis due to a disc bulge and a central disc protrusion. There is left neural foramen narrowing that may affect the left C4 nerve root At C4-5, there is spinal stenosis due to a disc bulge and a broad-based central disc protrusion. The neural foramen are patent At C5-6, there is spinal stenosis due to a disc bulge and a right paracentral disc protrusion. The neural foramen are patent At C6-7, there is spinal stenosis due to a disc bulge and a left paracentral disc protrusion. There is left neural foramen narrowing that may affect the left C7 nerve root At C7-T1, there is a disc bulge without spinal stenosis. The neural foramen are patent There are apparent small thyroid nodules. No foreign body is seen Impression: 1. No definite cervical spine fracture 2. Spinal stenosis from C3-4 through C6-7 3. Left C3-4 and C6-7 neural foramen narrowing that may affect the exiting nerve roots 4. Indeterminate thyroid nodules. A follow-up thyroid ultrasound could be obtained ACT 112: Positive. There are findings on this exam that require communication between the performing entity and the patient following Patient Test Result Information Act ([place] ACT 112) guidelines. Electronically signed by Brad Dutta 03-29-2025 8:06 PM Chest X-Ray 03/29/25 19:16 Clinical History: Trauma Technique: A frontal view of the chest was obtained Comparison is made to the prior examination dated 03/30/2024 Findings: There are no confluent pulmonary infiltrates. The heart size is within normal limits. No pleural effusion or pneumothorax is seen. There is no definite pulmonary nodule. No fracture is noted. No foreign body is seen Impression: No active disease Electronically signed by Brad Dutta 03-29-2025 7:[address] 03/29/25 19:16 Clinical History: Injury. Technique: Axial computed tomography images were obtained of the brain from the vertex to the skull base without intravenous contrast. Findings: There is no sign of intracranial hemorrhage. There is normal wilkins-white matter differentiation with no sign of acute or old infarction. No midline shift or other form of herniation is identified. There is no hydrocephalus. No obvious mass lesion is seen on this noncontrast examination. The visualized portions of the orbits and paranasal sinuses appear unremarkable. The mastoid air cells appear clear Impression: Unremarkable noncontrast CT of the brain Electronically signed by Brad Dutta 03-29-2025 8:01 PM Pelvis X-Ray 03/29/25 19:16 Clinical History: Trauma One view of the pelvis is submitted for review. Findings: No fracture or dislocation is seen. No significant arthritic changes are noted. No other osseous abnormality is identified. There is a device projecting over the right iliac crest Impression: No definite pelvic fracture Electronically signed by Brad Dutta 03-29-2025 7:43 PM Abdomen/Pelvis CT 03/29/25 19:37 Clinical History: Trauma Technique: Axial computed tomography images were obtained of the abdomen and pelvis without intravenous contrast. Comparison is made to the prior CT dated 07/19/2024 Findings: The liver is overall of normal size, attenuation, and contour with no sign of cirrhosis or significant fatty infiltration. No definite liver mass lesion is seen on this noncontrast study. The gallbladder appears unremarkable. No bile duct dilatation is noted. The spleen is of normal size. No focal splenic lesion is evident. The pancreas appears normal with no sign of acute or chronic pancreatitis and no mass lesion noted. The pancreatic duct is of normal caliber. The adrenal glands appear unremarkable. No renal or proximal ureteral calculi are seen. There is no hydronephrosis or perinephric stranding. No definite renal mass lesion is identified. The right ureteral stent seen before has been removed The aorta is of normal caliber. No abdominal adenopathy is seen. The stomach appears normal. There is no sign of small bowel obstruction. The colon appears unremarkable. The appendix has been removed. No free intraperitoneal fluid or air is identified. There has been interval decrease in size of a thick-walled fluid collection right anterior to the urinary bladder. This measures 3.2 x 2.2 cm, previously 5.7 x 4.9 cm. There is mild adjacent soft tissue stranding No distal ureteral or bladder calculi are seen. No obvious bladder mass lesion is evident. The iliac arteries are of normal caliber. No pelvic adenopathy is noted. The lung bases appear clear. There is coronary atherosclerosis No fracture is identified. No focal osseous lesion is seen Impression: 1. No definite sign of abdominal organ injury after trauma 2. Interval decrease in size of a complex fluid collection adjacent to the urinary bladder, which may represent a resolving hematoma. No acute hemorrhage is seen Electronically signed by Brad Dutta 03-29-2025 8:09 PM ECG Data Attestation: I personally reviewed and interpreted this ECG as follows: Rate (beats per minute): 73 Rhythm: + normal sinus ECG Intervals/blocks: + Normal QRS, + Normal NC and + Normal QT-c ECG ST segments: + Normal ST segments Comparison ECG Date: from (March 2024) Change: no significant change [facility] Narrative 191: The patient was evaluated in room D3A. A complete history and physical exam was performed Cardiac monitoring: An order was placed for continuous cardiac monitoring. The monitor shows a rate of 70 with sinus rhythm interpreted by mo 2022: Vital signs stable. Labs show a creatinine of 2.38 up from baseline of 1.7. CK is 800. Troponin is negative. CT showed no acute traumatic injury. Patient will be admitted for RO and syncope. Discussed case with [place] hospitalist Dr. Zamora who evaluate the patient for admission. Impression & Plan Syncope, RO (acute kidney injury) Discharge Plan Visit Data Chief Complaint: Trauma Stated Complaint: LOW BP, FALL ED Provider: Klaus Nair Discharge Problem: Syncope, RO (acute kidney injury) Patient Disposition: Being Evaluated by Hospitalist Condition: Fair Forms Stand Alone Forms: My [facility] Prescriptions Prescriptions: No Action losartan 25 mg tablet 12.5 mg PO DAILY rosuvastatin 40 mg tablet 40 mg PO DAILY Ozempic 1 mg/dose (4 mg/3 mL) pen injector subcut estradiol 0.01 % (0.1 mg/gram) cream 1 appful vaginal DAILY Qty: 42.5 2RF Rx Instructions: Utilize once a night for 2 weeks, then decrease usage to twice weekly. fluoxetine 40 mg capsule 40 mg PO QPM lovastatin 40 mg tablet 40 mg PO QPM aspirin 81 mg Tablet,Delayed Release (Dr/Ec) 81 mg PO QPM dextroamphetamine-amphetamine 20 mg capsule,extended release 24hr 20 mg PO DAILY PRN (Reason: prn) insulin aspart U-100 [Novolog U-100 Insulin aspart] 100 unit/mL solution 0 unit subcut DIRECTED Rx Instructions: VIA PUMP albuterol sulfate 90 mcg/actuation HFA aerosol inhaler 2 puff INHALATION Q4 PRN (Reason: prn) Centrum Complete 18-400 mg-mcg Tablet 1 tab PO QPM Brilinta 90 mg Tablet 90 mg PO BID Qty: 60 0RF Referrals Referrals: Antonio Cristobal MD [Primary Care Provider] - Discharge Problem: Syncope Qualifiers: Syncope type: unspecified Qualified Code(s): R55 - Syncope and collapse
[2025-03-29 20:38] LABS: Potassium 3.7 mmol/L (3.5-5.1)
[2025-03-29] MEDS: SODIUM CHLORIDE 0.9% 1,000 ML IV SCH ×2 (21:07→22:48)
[2025-03-29] MEDS: ROSUVASTATIN CALCIUM 20 MG TAB PO STA (21:37)
[2025-03-29] MEDS: TICAGRELOR 90 MG TAB PO STA (21:39)
--- NOTE | 2025-03-29 21:51 | History & Physical Report ---
Date of Service March 29, 2025 Assessment & Plan (1) Syncope: Plan: 59-year-old female with past medical history significant for type 1 diabetes on insulin pump, diabetic nephropathy, CKD stage III, dyslipidemia, Graves' disease, history of hyperkalemia, moderate obstructive apnea, chronic rhinitis, non-ST elevated HI status post LAD stent, history of right-sided heart failure, hypertension, history of obstruction of both ureters, sciatica, anxiety, depr ession, history of ADHD, history of COVID, history of retroperitoneal hematoma, comes because of syncope and fall. Patient was in the kitchen and trying to reach her phone and next thing she remembered is her dog licking on her. She was on the ground. She thinks she may have hit her head because the back of the head was hurting some. Before falling she was doing fine. Patient does not know how long she laid down on the floor. When she woke up she was not confused. But she felt lightheaded and some shortness of breath and chest discomfort which resolved currently. She struggled to get up and went to the other room and called her . When her came and checked her blood pressure her systolic blood pressure was in 70s which concerned him and brought the patient to the hospital. Her oxygen saturations were okay. Patient currently resting comfortably and hemodynamic stable. Denies any blurred vision. No headache. No runny nose. No sore throat. No cough. No fevers. Eating and drinking okay. Currently no chest pain or shortness of breath. No nausea. No abdominal pain. No diarrhea or constipation. No blood in stools. Micturating okay. Patient has history of vertigo managed with Mayur maneuver. Syncope and fall CT head, cervical spine CT, chest x-ray, pelvis x-ray, CT abdomen pelvis no acute findings Labs okay except RO with creatinine of 2.3 and CPK 800. Troponin okay Patient was hypotensive at home when her checked Will continue with IV fluids Telemetry Follow repeat troponin and EKG and echocardiogram Orthostatics Cardiology consult in a.m. for further recommendations RO on CKD stage III Baseline creatinine around 1.4-1.5 Creatinine 2.3 today Will hold losartan Will avoid nephrotoxic agents Getting gentle fluids Will follow repeat labs Elevated cpk cpk 800 will follow repeat levels in am Type 1 diabetes Continue home insulin pump Hold Ozempic Will follow HbA1c levels History of CAD History of non-ST elevated HI in 02/2024 status post drug-eluting stent to the LAD. On aspirin, Brilinta and statin History of right ventricle dilatation moderate tricuspid regurgitation Status post right and left heart catheterization demonstrating normal pulmonary pressures, no intracardiac shunt Bilateral ureteral compression secondary to severe pelvic hematoma following non-ST elevated therapy and laparoscopic appendectomy causing mass effect on the bladder and right distal right ureter with associated hydronephrosis and ureteral stents implanted by urology with relief of obstruction Left stent was removed in April and right stent was removed in July 2024 with no recurrence of compression. CAT scan today shows resolving hematoma Follows with urology Hypertension Controlled Losartan was initiated for renal protection not hypertension . Losartan is held for now for RO Obstructive sleep apnea Patient still waiting for the new CPAP machine. She could not tolerate mask CPAP while in the hospital Depression On fluoxetine Cervical spinal stenosis On CAT scan today Follow-up DVT prophylaxis SCDs for now Disposition Telemetry Full code. History of Present Illness Chief Complaint: Syncope and fall Primary Care Provider: Antonio Cristobal MD 59-year-old female with past medical history significant for type 1 diabetes on insulin pump, diabetic nephropathy, CKD stage III, dyslipidemia, Graves' disease, history of hyperkalemia, moderate obstructive apnea, chronic rhinitis, non-ST elevated HI status post LAD stent, history of right-sided heart failure, hypertension, history of obstruction of both ureters, sciatica, anxiety, dep ression, history of ADHD, history of COVID, history of retroperitoneal hematoma, comes because of syncope and fall. Patient was in the kitchen and trying to reach her phone and next thing she remembered is her dog licking on her. She was on the ground. She thinks she may have hit her head because the back of the head was hurting some. Before falling she was doing fine. Patient does not know how long she laid down on the floor. When she woke up she was not confused. But she felt lightheaded and some shortness of breath and chest discomfort which resolved currently. She struggled to get up and went to the other room and called her . When her came and checked her blood pressure her systolic blood pressure was in 70s which concerned him and brought the patient to the hospital. Her oxygen saturations were okay. Patient currently resting comfortably and hemodynamic stable. Denies any blurred vision. No headache. No runny nose. No sore throat. No cough. No fevers. Eating and drinking okay. Currently no chest pain or shortness of breath. No nausea. No abdominal pain. No diarrhea or constipation. No blood in stools. Micturating okay. Patient has history of vertigo managed with Mayur maneuver. Past medical history as mentioned above. Past surgical history. Cardiac catheterization. . Cystoscopy. Injection of lumbosacral spine. Laparoscopic appendectomy. Ligation of oviduct. Laser surgery for leaking blood vessel. Cataracts. Social history. . No smoking. Alcohol rarely. No drug use. Family history. Brother had type 1 diabetes. Father had lung disorder. Allergies Allergy/AdvReac Type Severity Reaction Status Date / Time CHAPARRO Inhibitors Allergy Intermediate cough Verified 01/09/25 12:57 Penicillins Allergy Intermediate rash Verified 01/09/25 12:57 Home Medications Medication Instructions Recorded Confirmed Type albuterol sulfate 90 mcg/actuation 2 inh inhalation Q4H PRN Shortness 03/29/25 03/29/25 History aerosol inhaler Of Breath Or Wheezing aspirin 81 mg tablet,delayed 81 mg PO HS 03/29/25 03/29/25 History release fluoxetine 40 mg capsule 40 mg PO HS 03/29/25 03/29/25 History insulin aspart U-100 100 unit/mL 1 unit subcut UD 03/29/25 03/29/25 History subcutaneous solution (Novolog U-100 Insulin aspart) losartan 25 mg tablet 12.5 mg PO HS 03/29/25 03/29/25 History [id number]-qtdk 8 mg-folic 400 1 tab PO DAILY 03/29/25 03/29/25 History mcg-K 50 mcg-lutein 300 mcg tablet (Centrum Silver Women) rosuvastatin 40 mg tablet 40 mg PO HS 03/29/25 03/29/25 History semaglutide 1 mg/dose (4 mg/3 mL) 1 mg subcut WK 03/29/25 03/29/25 History subcutaneous pen injector (Ozempic) ticagrelor 90 mg tablet (Brilinta) 90 mg PO BID 03/29/25 03/29/25 History Past Med/Surg History Problem List (Updated 03/29/25 @ 20:28 by Klaus Nair MD) RO (acute kidney injury) (Acute) Syncope (Acute) Stage 3b chronic kidney disease Vitamin D deficiency Atrophic vaginitis (Acute) Urinary symptom or sign Urinary obstruction (Chronic) Anemia (Acute) Fever (Acute) Hypotension (Acute) Pelvic hematoma, female (Chronic) Hypotension Abdominal pain Bilateral pleural effusion Intra abdominal hemorrhage Acute blood loss anemia Status post insertion of drug-eluting stent into left anterior descending (LAD) artery Hematoma Hydronephrosis CAD (coronary artery disease) Hypertension Acute right-sided heart failure Pleural effusion Pulmonary hypertension Shock Type 1 diabetes mellitus (Acute) Non-ST elevation HI (NSTEMI) (Acute) Acute renal failure (Acute) Sepsis (Acute) UTI due to Klebsiella species Acute kidney injury COVID-19 (Acute) Intractable pain (Acute) Neck muscle spasm (Acute) Encounter for medication refill (Acute) Encounter for medication refill (Acute) Alcoholic intoxication (Acute) Medical History UTI (urinary tract infection) ARF (acute renal failure) Right ventricular dysfunction Acute respiratory failure 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 hypoxia 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 (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) use of 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/antiplatelets Brilinta History of recent hemorrhage (02/2024) intra abdominal, recent [facility] hospitalization, after appendectomy Pelvic hematoma, female History of sepsis (02/2024) History of pleural effusion 02/2024 Depression Anxiety Hypercholesteremia Sleep apnea no device History of non-ST elevation myocardial infarction (NSTEMI) (02/2024) stents 02/[address] Hoff, next appointment 05/07/2024 Interstitial lung disease patient denies CKD (chronic kidney disease) stage 3, GFR 30-59 ml/min Cervical radiculopathy DM (diabetes mellitus), type 1 insulin pump Surgical History S/P ureteral stent placement S/P ureteral stent placement History of appendectomy History of cataract surgery bilateral History of cardiac catheterization 02/2024 per records-status post right and left heart catheterization with two drug-eluting stents placed in the mid left anterior descending artery History of female sterilization History of carpal tunnel surgery bilateral Social History Smoking Status: Never smoker Second Hand Exposure: No; Do You Dip or Chew Tobacco: No; Hx Alcohol Use: Yes Alcohol type: hard liquor Hx Substance Use: No Preferred Language: [place] Communication Ability: Effective 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 ENT- oropharynx clear Neck- supple, no JVD. Lungs- clear to auscultation no wheezing or crackles Heart- regular rate and rhythm; no murmur, no gallop. Abdomen- normal bowel sounds, soft, nontender, no distension Extremities- no pretibial edema, no erythema seen Neuro- alert, oriented PERRL, no facial palsy; no dysarthria; motor 5/5 bilaterally. Results & Data Results & Data Vital Signs (Past 12 Hours) Vital Signs Temp Pulse Pulse Resp BP BP Pulse Ox 03/29/25 21:00 36.6 C 78 17 151/115 H 100 03/29/25 20:00 36.6 C 71 16 117/78 100 03/29/25 19:30 36.5 C 74 18 113/69 98 03/29/25 19:30 36.5 C 74 18 113/69 98 03/29/25 19:29 79 03/29/25 18:37 36.8 C 77 20 97/64 L 100 O2 Del Method O2 Flow Rate 03/29/25 21:00 Room Air 03/29/25 20:00 Room Air 03/29/25 19:30 Room Air 0 03/29/25 19:30 Room Air 03/29/25 19:29 03/29/25 18:37 Room Air Diagnostic Findings Laboratory Results WBC 6.81 K/ul (4.8-10.8) 03/29/25 19:24 RBC 4.19 M/uL (4.20-5.40) L 03/29/25 19:24 Hgb 13.6 g/dl (12.0-16.0) 03/29/25 19:24 POC Hgb 14.6 g/dl (12.0-16.0) 03/29/25 19:34 Hct 39.0 % (37.0-47.0) 03/29/25 19: POC Hct 43 % (37-47) 03/29/25 19: MCV 93.1 fL (80.0-100.0) 03/29/25 19: MCH 32.5 pg (25.0-34.0) 03/29/25 19: MCHC 34.9 g/dL (32.0-36.0) 03/29/25 19: RDW Std Deviation 43.8 fL (36.4-46.3) 03/29/25: RDW Coeff of Emma 12.8 % (11.5-14.5) 03/29/25: Plt Count 260 K/uL (130-400) 03/29/25: MPV 10.1 fL (9.4-12.4) 03/29/25: Immature Gran % (Auto) 0.1 % 03/29/25: Neut % (Auto) 67.3 % 03/29/25: Lymph % (Auto) 22.3 % 03/29/25: [place] % (Auto) 9.5 % 03/29/25: Eos % (Auto) 0.4 % 03/29/25: Baso % (Auto) 0.4 % 03/29/25: Neut # (Auto) 4.57 K/uL (1.40-6.50) 03/29/25: Lymph # (Auto) 1.52 K/uL (1.20-3.40) 03/29/25: [place] # (Auto) 0.65 K/uL (0.11-0.59) H 03/29/25: Eos # (Auto) 0.03 K/uL (0.00-0.50) 03/29/25: Baso # (Auto) 0.03 K/uL (0.00-0.20) 03/29/25: Immature Gran # (Auto) 0.01 K/uL (0.01-0.20) 03/29/25:24 PT 10.2 Seconds (9.0-12.0) 03/29/25 19:24 INR 0.9 (0.9-1.1) 03/29/25 19:24 APTT 28 Seconds (21-31) 03/29/25 19:24 PTT Ratio 1.0 03/29/25 19:24 POC Sodium 138 mmol/L (135-144) 03/29/25 19:34 Sodium 137 mmol/L (136-145) 03/29/25 19:24 POC Potassium 3.6 mmol/L (3.3-5.0) 03/29/25 19:34 Potassium 3.7 mmol/L (3.5-5.1) 03/29/25 20:12 POC Chloride 103 mmol/L (101-112) 03/29/25 19:34 Chloride 103 mmol/L (98-107) 03/29/25 19:24 Carbon Dioxide 25 mmol/L (21-32) 03/29/25 19:24 POC Total CO2 24 mmol/L (24-31) 03/29/25 19:34 Anion Gap 9 (3-11) 03/29/25 19:24 POC Anion Gap 16.0 mmol/L (16-25) 03/29/25 19:34 POC BUN 31 mg/dl (7-18) H 03/29/25 19:34 BUN 25 mg/dl (6-23) H 03/29/25 19:24 Creatinine 2.38 mg/dl (0.6-1.2) H 03/29/25 19:24 POC Creatinine 2.6 mg/dl (0.6-1.3) H 03/29/25 19:34 Est Cr Clr Drug Dosing 21.8 ml/min 03/29/25 19:24 eGFR 23.07 03/29/25 19:24 BUN/Creatinine Ratio 10.5 (10-20) 03/29/25 19:24 Glucose 215 mg/dl (70-99(Fasting)) H 03/29/25 19:24 POC Glucose (other) 210 mg/dl (70-99) H 03/29/25 19:34 Calcium 9.8 mg/dl (8.6-10.3) 03/29/25 19:24 POC Ioniz Calcium Donna 1.20 mmol/l (1.12-1.32) 03/29/25 19:34 Total Bilirubin 0.5 mg/dl (0.2-1.0) 03/29/25 19:24 AST 53 U/L (13-39) H 03/29/25 20:12 ALT 48 U/L (7-52) 03/29/25 19:24 Alkaline Phosphatase 85 U/L (34-104) 03/29/25 19:24 Total Creatine Kinase 800 U/L (26-192) H 03/29/25 19:24 Troponin I High Sens 10.2 pg/ml (0-14) 03/29/25 19:24 Total Protein 7.3 gm/dl (6.0-8.3) 03/29/25 19:24 Albumin 4.2 gm/dl (3.4-5.0) 03/29/25 19:24 Globulin 3.1 gm/dl (2.5-4.0) 03/29/25 19:24 Albumin/Globulin Ratio 1.4 (0.9-2) 03/29/25 19:24 Lipase 42 U/L (11-82) 03/29/25 19:24 Blood Type O Positive 03/29/25 19:27 Antibody Screen NEGATIVE 03/29/25 19:[address] 03/29/25 19:16 Clinical history: Injury Technique: Axial computed tomography images were obtained of the cervical spine without intravenous contrast. Sagittal and coronal reconstructions were obtained Comparison is made to the MRI of the cervical spine dated 10/27/2018 Findings: No fracture is identified. No listhesis is seen. No focal osseous lesion is evident. There is atlantoaxial osteoarthritis At C2-3, there is a disc bulge without spinal stenosis. There is mild left neural foramen narrowing At C3-4, there is spinal stenosis due to a disc bulge and a central disc protrusion. There is left neural foramen narrowing that may affect the left C4 nerve root At C4-5, there is spinal stenosis due to a disc bulge and a broad-based central disc protrusion. The neural foramen are patent At C5-6, there is spinal stenosis due to a disc bulge and a right paracentral disc protrusion. The neural foramen are patent At C6-7, there is spinal stenosis due to a disc bulge and a left paracentral disc protrusion. There is left neural foramen narrowing that may affect the left C7 nerve root At C7-T1, there is a disc bulge without spinal stenosis. The neural foramen are patent There are apparent small thyroid nodules. No foreign body is seen Impression: 1. No definite cervical spine fracture 2. Spinal stenosis from C3-4 through C6-7 3. Left C3-4 and C6-7 neural foramen narrowing that may affect the exiting nerve roots 4. Indeterminate thyroid nodules. A follow-up thyroid ultrasound could be obtained ACT 112: Positive. There are findings on this exam that require communication between the performing entity and the patient following Patient Test Result Information Act ([place] ACT 112) guidelines. Electronically signed by Brad Dutta 03-29-2025 8:06 PM Chest X-Ray 03/29/25 19:16 Clinical History: Trauma Technique: A frontal view of the chest was obtained Comparison is made to the prior examination dated 03/30/2024 Findings: There are no confluent pulmonary infiltrates. The heart size is within normal limits. No pleural effusion or pneumothorax is seen. There is no definite pulmonary nodule. No fracture is noted. No foreign body is seen Impression: No active disease Electronically signed by Brad Dutta 03-29-2025 7:[address] 03/29/25 19:16 Clinical History: Injury. Technique: Axial computed tomography images were obtained of the brain from the vertex to the skull base without intravenous contrast. Findings: There is no sign of intracranial hemorrhage. There is normal wilkins-white matter differentiation with no sign of acute or old infarction. No midline shift or other form of herniation is identified. There is no hydrocephalus. No obvious mass lesion is seen on this noncontrast examination. The visualized portions of the orbits and paranasal sinuses appear unremarkable. The mastoid air cells appear clear Impression: Unremarkable noncontrast CT of the brain Electronically signed by Brad Dutta 03-29-2025 8:01 PM Pelvis X-Ray 03/29/25 19:16 Clinical History: Trauma One view of the pelvis is submitted for review. Findings: No fracture or dislocation is seen. No significant arthritic changes are noted. No other osseous abnormality is identified. There is a device projecting over the right iliac crest Impression: No definite pelvic fracture Electronically signed by Brad Dutta 03-29-2025 7:43 PM Abdomen/Pelvis CT 03/29/25 19:37 Clinical History: Trauma Technique: Axial computed tomography images were obtained of the abdomen and pelvis without intravenous contrast. Comparison is made to the prior CT dated 07/19/2024 Findings: The liver is overall of normal size, attenuation, and contour with no sign of cirrhosis or significant fatty infiltration. No definite liver mass lesion is seen on this noncontrast study. The gallbladder appears unremarkable. No bile duct dilatation is noted. The spleen is of normal size. No focal splenic lesion is evident. The pancreas appears normal with no sign of acute or chronic pancreatitis and no mass lesion noted. The pancreatic duct is of normal caliber. The adrenal glands appear unremarkable. No renal or proximal ureteral calculi are seen. There is no hydronephrosis or perinephric stranding. No definite renal mass lesion is identified. The right ureteral stent seen before has been removed The aorta is of normal caliber. No abdominal adenopathy is seen. The stomach appears normal. There is no sign of small bowel obstruction. The colon appears unremarkable. The appendix has been removed. No free intraperitoneal fluid or air is identified. There has been interval decrease in size of a thick-walled fluid collection right anterior to the urinary bladder. This measures 3.2 x 2.2 cm, previously 5.7 x 4.9 cm. There is mild adjacent soft tissue stranding No distal ureteral or bladder calculi are seen. No obvious bladder mass lesion is evident. The iliac arteries are of normal caliber. No pelvic adenopathy is noted. The lung bases appear clear. There is coronary atherosclerosis No fracture is identified. No focal osseous lesion is seen Impression: 1. No definite sign of abdominal organ injury after trauma 2. Interval decrease in size of a complex fluid collection adjacent to the urinary bladder, which may represent a resolving hematoma. No acute hemorrhage is seen Electronically signed by Brad Dutta 03-29-2025 8:09 PM ECG Additional Comments: ECG. Normal sinus rhythm rate of 73. T wave inversions in anterior leads. QTc 464. Possible right ventricular conduction delay. Code Status & VTE Plan VTE Prophylaxis Plan VTE Prophylaxis will be ordered: Yes (1) Syncope Syncope type: unspecified Qualified Code(s): R55 - Syncope and collapse
[2025-03-29] MEDS ORDERED: ACETAMINOPHEN 325 MG TAB PO PRN (22:24)
[2025-03-29] MEDS ORDERED: GLUCOSE 40% GEL 15 GM TUBE PO PRN ×2 (22:24)
[2025-03-29] MEDS ORDERED: DEXTROSE 50% 50 ML SYRINGE IV PRN ×2 (22:24)
[2025-03-29] MEDS ORDERED: GLUCOSE 10 TAB/TUBE PO PRN ×2 (22:24)
[2025-03-29] MEDS ORDERED: ALBUTEROL HFA 8 GM INHALER INH PRN (22:24)
[2025-03-29] MEDS ORDERED: GLUCAGON FOR INJ 1 MG VIAL SQ PRN ×2 (22:24)
[2025-03-29] MEDS ORDERED: CARBOHYDRATES FOR HYPOGLYCEMIA PO PRN ×2 (22:24)
[2025-03-29] MEDS ORDERED: POLYETHYLENE (MIRALAX) 17 GM PACK PO PRN (22:24)
[2025-03-29 23:09] VITALS: RESP 18
[2025-03-30] MEDS ORDERED: GLUCOSE 40% GEL 15 GM TUBE PO PRN (01:00)
[2025-03-30] MEDS ORDERED: DEXTROSE 50% 50 ML SYRINGE IV PRN (01:00)
[2025-03-30] MEDS ORDERED: CARBOHYDRATES FOR HYPOGLYCEMIA PO PRN (01:00)
[2025-03-30] MEDS ORDERED: GLUCOSE 10 TAB/TUBE PO PRN (01:00)
[2025-03-30] MEDS ORDERED: GLUCAGON FOR INJ 1 MG VIAL SQ PRN (01:00)
[2025-03-30] MEDS ORDERED: INSULIN ASPART 100 UNITS/ML VIAL SC PRN (01:00)
[2025-03-30] MEDS: ASPIRIN 81 MG ECTAB PO STA (03:16)
[2025-03-30] MEDS: Continuous Glucose Monitor SCH (05:52)
[2025-03-30] MEDS: INSULIN, Rapid-Acting PUMP SC SCH (05:57)
[2025-03-30 06:12] LABS: Hematocrit (blood only) 35.7 % (37.0-47.0); Hemoglobin 11.7 g/dl (12.0-16.0); Immature Granulocytes # (auto) 0.01 K/uL (0.01-0.20); Immature Granulocytes % (auto) 0.1 %; Mean Corpuscular Hemoglobin 30.9 pg (25.0-34.0); Mean Corpuscular Volume 94.2 fL (80.0-100.0); Platelet Count 236 K/uL (130-400); RDW Standard Deviation 45.1 fL (36.4-46.3); Red Blood Count 3.79 M/uL (4.20-5.40); White Blood Count 6.69 K/ul (4.8-10.8)
[2025-03-30 06:31] LABS: Anion Gap 6.0 (3-11); Blood Urea Nitrogen 21.0 mg/dl (6-23); Calcium 8.8 mg/dl (8.6-10.3); Carbon Dioxide 25.0 mmol/L (21-32); Chloride 112.0 mmol/L (98-107); Creatine Kinase 707.0 U/L (26-192); Creatinine Clr Calc Pharmacy 23.4 ml/min; Glucose 110.0 mg/dl (70-99(Fasting)); Magnesium 2.2 mg/dl (1.7-2.4); Potassium 3.9 mmol/L (3.5-5.1); Sodium 143.0 mmol/L (136-145)
[2025-03-30 06:48] LABS: Appearance Urine Clear (Clear); Bacteria Urine Automated None Seen (None Seen); Glucose Urine UA Negative (Negative); RBC Urine Automated 0-2 /hpf (0-2); WBC Urine Automated 0-5 /hpf (0-5)
[2025-03-30 07:25] LABS: Hemoglobin A1C 7.8 % (4.5-5.6)
[2025-03-30] MEDS: TICAGRELOR 90 MG TAB PO SCH (08:22)
[2025-03-30] MEDS: CEROVITE ADV FORMULA TAB PO SCH (08:22)
--- NOTE | 2025-03-30 11:13 | Cardiology Consultation ---
<Statement entered by Evelyn Fernández, DO - 03/30/25 15:31> I have reviewed the advanced practitioner's documentation and agree with the plan of care. I accept the responsibility for the associated risk. Pt seen in cardiology consultation due to syncope which sounds to be due to orthostatic hypotension. Pt BP is on the low side while here in the hospital. She has been ambulating and feels ok. Her kidney function is down from admission but still not back to baseline. Her echo today revealed preserved EF and the RV is back to normal function and size and there is no significant TR as there was seen a year ago at the time of her GA. She is ok to be discharged home today from a cardiac perspective she follows with [facility]-would consider if able a continuous BP monitoring through them would stop losartan for now I discussed the case and my recommendations with the hospitalist over the phone and he agreed with my plan My nurse practitioner and I together spent a total of [90] minutes coordinating, documenting, and providing care for this patient excluding time spent in the performance of separately billed services or time spent by another provider/QHP. Date of Consultation March 30, 2025 Assessment & Plan (1) Syncope: (2) RO (acute kidney injury): (3) Stage 3b chronic kidney disease: (4) CAD (coronary artery disease): Plan -HR and BP currently well controlled -was hypotensive on presentation with also RO noted on lab work -may have had orthostasis resulting in the syncopal event -renal function improved with IV fluids -no arrhythmias or bradycardia noted on telemetry -continue ASA, Brilinta, and Rosuvastain -losartan on hold given the hypotension, would stop this altogether at d/c -stay well hydrated -no acute findings on echo and the RV appears improved from last year -no additional cardiac work up needed, stable for discharge from a cardiac perspective Case discussed with Dr. Fernández. Please see attestation for additional recommendations. JONH Zavala Department of Cardiology, [facility] This chart was completed in part utilizing Speech Voice Recognition Software. Grammatical errors, random word insertions, pronoun errors, and incomplete sentences are an occasional consequence of this system due to software limitations, ambient noise, and hardware issues. Any formal questions or concerns about the content, text, or information contained within the body of this dictation should be directly addressed to the provider for clarification. History of Present Illness Reason for Consultation: Syncope Requesting Physician: Hospitalist Attending Physician: Quinn Oden MD History of Present Illness 59-year-old female seen in consultation today in regard to syncope. She was sitting at home yesterday got up and walked across the room to reach her phone and the next thing she remembers was the dog licking her face. She came to on the ground is not sure how long she was held for and had been feeling completely fine up until the event. She called her to come check on her and when he checked her blood pressure systolically it was in the 70s so she is subsequently came to the hospital for further evaluation. She has a known past medical history of type 1 diabetes, diabetic nephropathy, CKD III, hyperlipidemia, Graves' disease, VAHE, CAD, dilated RV, hypertension, anxiety, depression. Allergies Allergy/AdvReac Type Severity Reaction Status Date / Time CHAPARRO Inhibitors Allergy Intermediate cough Verified 01/09/25 12:57 Penicillins Allergy Intermediate rash Verified 01/09/25 12:57 Home Medications Medication Instructions Recorded Confirmed Type albuterol sulfate 90 mcg/actuation 2 inh inhalation Q4H PRN Shortness 03/29/25 03/29/25 History aerosol inhaler Of Breath Or Wheezing aspirin 81 mg tablet,delayed 81 mg PO HS 03/29/25 03/29/25 History release fluoxetine 40 mg capsule 40 mg PO HS 03/29/25 03/29/25 History insulin aspart U-100 100 unit/mL 1 unit subcut UD 03/29/25 03/29/25 History subcutaneous solution (Novolog U-100 Insulin aspart) losartan 25 mg tablet 12.5 mg PO HS 03/29/25 03/29/25 History otqbrgnz-babd-hfna 8 mg-folic 400 1 tab PO DAILY 03/29/25 03/29/25 History mcg-K 50 mcg-lutein 300 mcg tablet (Centrum Silver Women) rosuvastatin 40 mg tablet 40 mg PO HS 03/29/25 03/29/25 History semaglutide 1 mg/dose (4 mg/3 mL) 1 mg subcut WK 03/29/25 03/29/25 History subcutaneous pen injector (Ozempic) ticagrelor 90 mg tablet (Brilinta) 90 mg PO BID 03/29/25 03/29/25 History Patient History Medical History UTI (urinary tract infection) ARF (acute renal failure) Right ventricular dysfunction 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/antiplatelets Brilinta History of recent hemorrhage (02/2024) intra abdominal, recent [facility] hospitalization, after appendectomy Pelvic hematoma, female History of sepsis (02/2024) History of pleural effusion 02/2024 Depression Anxiety Hypercholesteremia Sleep apnea no device History of non-ST elevation myocardial infarction (NSTEMI) (02/2024) stents 02/[address] Hoff, next appointment 05/07/2024 Interstitial lung disease patient denies CKD (chronic kidney disease) stage 3, GFR 30-59 ml/min Cervical radiculopathy DM (diabetes mellitus), type 1 insulin pump Surgical History S/P ureteral stent placement S/P ureteral stent placement History of appendectomy History of cataract surgery bilateral History of cardiac catheterization 02/2024 per records-status post right and left heart catheterization with two drug-eluting stents placed in the mid left anterior descending artery History of female sterilization History of carpal tunnel surgery bilateral Social History Smoking Status: Never smoker Second Hand Exposure: No; Do You Dip or Chew Tobacco: No; Hx Alcohol Use: Yes Alcohol type: hard liquor Hx Substance Use: No Preferred Language: Cuban Communication Ability: Effective News Content Specialist Required: No Beliefs That Will Affect Care: None Current Living Situation: Spouse current occupational status: unemployed How many Children do You have: 1 Feels Safe at Home: Yes Safety Concerns: Feels Safe At This Time Diet: regular caffeine: Yes Physical Activity Frequency: Daily Physical Activity Frequency Comment: Dog walks Assistive Devices: Glasses Assistive Devices Comment: continuous glucose monitoring device Review of Systems Constitutional: no fever and no chills Respiratory: no cough and no dyspnea Cardiovascular: + syncope; no chest pain, no palpitation s, no lightheadedness and no edema Gastrointestinal: no abdominal pain, no nausea and no vomiting Physical Exam Constitutional: WD/WN, vitals as above well developed, well nourished and + acute distress Eyes: PERRL, conjunctivae normal, anicteric sclerae ENMT: external ear and nose normal, oropharynx normal Neck: trachea midline, no thyromegaly Respiratory: normal respiratory effort, lungs clear to auscultation Cardiovascular: Rate/Rhythm: regular rate and regular rhythm Heart Sounds: normal S1 and normal S2; no murmur Vessels: no JVD and no carotid bruit Gastrointestinal (Abdomen): normal bowel sounds, soft, nontender, no hepatosplenomegaly Musculoskeletal: no cyanosis or clubbing, extremities motor strength 5/5 Skin: no rashes, warm and dry Psychiatric: A+Ox3, euthymic affect Results & Data Vital Signs (Past 12 Hours) Vital Signs Temp Pulse Resp BP Pulse Ox O2 Del Method 03/30/25 10:57 36.7 C 72 18 124/76 98 Room Air 03/30/25 07:04 36.5 C 71 18 120/66 99 Room Air 03/30/25 02:37 36.6 C 73 18 119/67 99 Room Air Laboratory Results Cardiac Enzymes 03/29/25 03/29/25 03/30/25 Range/Units 19:24 20:12 05:37 AST TNP 53 H Troponin I High Sens 10.2 13.7 (0-14) pg/ml Coagulation 03/29/25 Range/Units 19:24 PT 10.2 (9.0-12.0) Seconds APTT 28 (21-31) Seconds CBC 03/29/25 03/30/25 Range/Units 19:24 05:37 WBC 6.81 6.69 (4.8-10.8) K/ul RBC 4.19 L 3.79 L (4.20-5.40) M/uL Hgb 13.6 11.7 L (12.0-16.0) g/dl Hct 39.0 35.7 L (37.0-47.0) % Plt Count 260 236 (130-400) K/uL Neut # (Auto) 4.57 3.63 (1.40-6.50) K/uL Lymph # (Auto) 1.52 2.21 (1.20-3.40) K/uL Gray # (Auto) 0.65 H 0.71 H (0.11-0.59) K/uL Eos # (Auto) 0.03 0.10 (0.00-0.50) K/uL Baso # (Auto) 0.03 0.03 (0.00-0.20) K/uL Comprehensive Metabolic Panel 03/29/25 03/29/25 03/30/25 Range/Units 19:24 20:12 05:37 Sodium 137 143 (136-145) mmol/L Potassium TNP 3.7 3.9 Chloride 103 112 H (98-107) mmol/L Carbon Dioxide 25 25 (21-32) mmol/L BUN 25 H 21 (6-23) mg/dl Creatinine 2.38 H 2.17 H (0.6-1.2) mg/dl Glucose 215 H 110 H (70-99(Fasting)) mg/dl Calcium 9.8 8.8 (8.6-10.3) mg/dl AST TNP 53 H ALT 48 (7-52) U/L Alkaline Phosphatase 85 (34-104) U/L Total Protein 7.3 (6.0-8.3) gm/dl Albumin 4.2 (3.4-5.0) gm/dl Intake and Output 03/29/25 03/30/25 03/30/25 22:59 06:59 14:59 Intake Total 1999 956.667 / 956.667 Balance 1999 956.667 / 956.667 Intake: IV 1999 956.667 / 956.667 Sodium Chloride 0.9% 1,000 ml @ 1999 956.667 / 956.667 100 mls/hr IV .Q10H KANDI Rx#: [id number] Oral 0 Other: # Unmeasured Voids 1 Weight 59.6 kg 59.6 kg Weight Measurement Method Built in [facility] Built in [facility] Diagnostic Findings Laboratory Results WBC 6.69 K/ul (4.8-10.8) 03/30/25 05:37 RBC 3.79 M/uL (4.20-5.40) L 03/30/25 05:37 Hgb 11.7 g/dl (12.0-16.0) L 03/30/25 05:37 POC Hgb 14.6 g/dl (12.0-16.0) 03/29/25 19:34 Hct 35.7 % (37.0-47.0) L 03/30/25 05:37 POC Hct 43 % (37-47) 03/29/25 19:34 MCV 94.2 fL (80.0-100.0) 03/30/25 05:37 MCH 30.9 pg (25.0-34.0) 03/30/25 05:37 MCHC 32.8 g/dL (32.0-36.0) 03/30/25 05:37 RDW Std Deviation 45.1 fL (36.4-46.3) 03/30/25 05:37 RDW Coeff of Emma 13.1 % (11.5-14.5) 03/30/25 05:37 Plt Count 236 K/uL (130-400) 03/30/25 05:37 MPV 9.9 fL (9.4-12.4) 03/30/25 05:37 Immature Gran % (Auto) 0.1 % 03/30/25 05:37 Neut % (Auto) 54.4 % 03/30/25 05:37 Lymph % (Auto) 33.0 % 03/30/25 05:37 Gray % (Auto) 10.6 % 03/30/25 05:37 Eos % (Auto) 1.5 % 03/30/25 05:37 Baso % (Auto) 0.4 % 03/30/25 05:37 Neut # (Auto) 3.63 K/uL (1.40-6.50) 03/30/25 05:37 Lymph # (Auto) 2.21 K/uL (1.20-3.40) 03/30/25 05:37 Gray # (Auto) 0.71 K/uL (0.11-0.59) H 03/30/25 05:37 Eos # (Auto) 0.10 K/uL (0.00-0.50) 03/30/25 05:37 Baso # (Auto) 0.03 K/uL (0.00-0.20) 03/30/25 05:37 Immature Gran # (Auto) 0.01 K/uL (0.01-0.20) 03/30/25 05:37 PT 10.2 Seconds (9.0-12.0) 03/29/25 19:24 INR 0.9 (0.9-1.1) 03/29/25 19:24 APTT 28 Seconds (21-31) 03/29/25 19:24 PTT Ratio 1.0 03/29/25 19:24 POC Sodium 138 mmol/L (135-144) 03/29/25 19:34 Sodium 143 mmol/L (136-145) 03/30/25 05:37 POC Potassium 3.6 mmol/L (3.3-5.0) 03/29/25 19:34 Potassium 3.9 mmol/L (3.5-5.1) 03/30/25 05:37 POC Chloride 103 mmol/L (101-112) 03/29/25 19:34 Chloride 112 mmol/L (98-107) H 03/30/25 05:37 Carbon Dioxide 25 mmol/L (21-32) 03/30/25 05:37 POC Total CO2 24 mmol/L (24-31) 03/29/25 19:34 Anion Gap 6 (3-11) 03/30/25 05:37 POC Anion Gap 16.0 mmol/L (16-25) 03/29/25 19:34 POC BUN 31 mg/dl (7-18) H 03/29/25 19:34 BUN 21 mg/dl (6-23) 03/30/25 05:37 Creatinine 2.17 mg/dl (0.6-1.2) H 03/30/25 05:37 POC Creatinine 2.6 mg/dl (0.6-1.3) H 03/29/25 19:34 Est Cr Clr Drug Dosing 23.4 ml/min 03/30/25 05:37 eGFR 25.77 03/30/25 05:37 BUN/Creatinine Ratio 9.7 (10-20) L 03/30/25 05:37 Glucose 110 mg/dl (70-99(Fasting)) H 03/30/25 05:37 POC Glucose 120 mg/dl (70-99) H 03/30/25 05:51 POC Glucose (other) 210 mg/dl (70-99) H 03/29/25 19:34 Estimat Average Glucose 177 mg/dl 03/30/25 05:37 Hemoglobin A1c 7.8 % (4.5-5.6) H 03/30/25 05:37 Calcium 8.8 mg/dl (8.6-10.3) 03/30/25 05:37 POC Ioniz Calcium Donna 1.20 mmol/l (1.12-1.32) 03/29/25 19:34 Magnesium 2.2 mg/dl (1.7-2.4) 03/30/25 05:37 Total Bilirubin 0.5 mg/dl (0.2-1.0) 03/29/25 19:24 AST 53 U/L (13-39) H 03/29/25 20:12 ALT 48 U/L (7-52) 03/29/25 19:24 Alkaline Phosphatase 85 U/L (34-104) 03/29/25 19:24 Total Creatine Kinase 707 U/L (26-192) H 03/30/25 05:37 Troponin I High Sens 13.7 pg/ml (0-14) 03/30/25 05:37 Total Protein 7.3 gm/dl (6.0-8.3) 03/29/25 19:24 Albumin 4.2 gm/dl (3.4-5.0) 03/29/25 19:24 Globulin 3.1 gm/dl (2.5-4.0) 03/29/25 19:24 Albumin/Globulin Ratio 1.4 (0.9-2) 03/29/25 19:24 Lipase 42 U/L (11-82) 03/29/25 19:24 Urine Color Yellow 03/30/25 06:26 Urine Appearance Clear (Clear) 03/30/25 06:26 Urine pH 5.0 (4.5-7.5) 03/30/25 06:26 Ur Specific Rice 1.010 (1.000-1.030) 03/30/25 06:26 Urine Protein 1+ (Negative) H 03/30/25 06:26 Urine Glucose (UA) Negative (Negative) 03/30/25 06:26 Urine Ketones Negative (Negative) 03/30/25 06:26 Urine Blood 2+ (Negative) H 03/30/25 06:26 Urine Nitrite Negative (Negative) 03/30/25 06:26 Urine Bilirubin Negative (Negative) 03/30/25 06:26 Urine Urobilinogen Negative (Negative) 03/30/25 06:26 Ur Leukocyte Esterase Negative (Negative) 03/30/25 06:26 Urine WBC (Auto) 0-5 /hpf (0-5) 03/30/25 06:26 Urine RBC (Auto) 0-2 /hpf (0-2) 03/30/25 06:26 U Hyaline Cast (Auto) 11-20 /lpf (0-2) H 03/30/25 06:26 U Epithel Cells (Auto) 3-5 /hpf (0-2) H 03/30/25 06:26 Urine Bacteria (Auto) None Seen (None Seen) 03/30/25 06:26 Urine Comment 03/30/25 06:26 Blood Type O Positive 03/29/25 19:27 Antibody Screen NEGATIVE 03/29/25 19:[address] 03/29/25 19:16 Clinical history: Injury Technique: Axial computed tomography images were obtained of the cervical spine without intravenous contrast. Sagittal and coronal reconstructions were obtained Comparison is made to the MRI of the cervical spine dated 10/27/2018 Findings: No fracture is identified. No listhesis is seen. No focal osseous lesion is evident. There is atlantoaxial osteoarthritis At C2-3, there is a disc bulge without spinal stenosis. There is mild left neural foramen narrowing At C3-4, there is spinal stenosis due to a disc bulge and a central disc protrusion. There is left neural foramen narrowing that may affect the left C4 nerve root At C4-5, there is spinal stenosis due to a disc bulge and a broad-based central disc protrusion. The neural foramen are patent At C5-6, there is spinal stenosis due to a disc bulge and a right paracentral disc protrusion. The neural foramen are patent At C6-7, there is spinal stenosis due to a disc bulge and a left paracentral disc protrusion. There is left neural foramen narrowing that may affect the left C7 nerve root At C7-T1, there is a disc bulge without spinal stenosis. The neural foramen are patent There are apparent small thyroid nodules. No foreign body is seen Impression: 1. No definite cervical spine fracture 2. Spinal stenosis from C3-4 through C6-7 3. Left C3-4 and C6-7 neural foramen narrowing that may affect the exiting nerve roots 4. Indeterminate thyroid nodules. A follow-up thyroid ultrasound could be obtained ACT 112: Positive. There are findings on this exam that require communication between the performing entity and the patient following Patient Test Result Information Act ([place] ACT 112) guidelines. Electronically signed by Brad Dutta 03-29-2025 8:06 PM Chest X-Ray 03/29/25 19:16 Clinical History: Trauma Technique: A frontal view of the chest was obtained Comparison is made to the prior examination dated 03/30/2024 Findings: There are no confluent pulmonary infiltrates. The heart size is within normal limits. No pleural effusion or pneumothorax is seen. There is no definite pulmonary nodule. No fracture is noted. No foreign body is seen Impression: No active disease Electronically signed by Brad Dutta 03-29-2025 7:[address] 03/29/25 19:16 Clinical History: Injury. Technique: Axial computed tomography images were obtained of the brain from the vertex to the skull base without intravenous contrast. Findings: There is no sign of intracranial hemorrhage. There is normal wilkins-white matter differentiation with no sign of acute or old infarction. No midline shift or other form of herniation is identified. There is no hydrocephalus. No obvious mass lesion is seen on this noncontrast examination. The visualized portions of the orbits and paranasal sinuses appear unremarkable. The mastoid air cells appear clear Impression: Unremarkable noncontrast CT of the brain Electronically signed by Brad Dutta 03-29-2025 8:01 PM Pelvis X-Ray 03/29/25 19:16 Clinical History: Trauma One view of the pelvis is submitted for review. Findings: No fracture or dislocation is seen. No significant arthritic changes are noted. No other osseous abnormality is identified. There is a device projecting over the right iliac crest Impression: No definite pelvic fracture Electronically signed by Brad Dutta 03-29-2025 7:43 PM Abdomen/Pelvis CT 03/29/25 19:37 Clinical History: Trauma Technique: Axial computed tomography images were obtained of the abdomen and pelvis without intravenous contrast. Comparison is made to the prior CT dated 07/19/2024 Findings: The liver is overall of normal size, attenuation, and contour with no sign of cirrhosis or significant fatty infiltration. No definite liver mass lesion is seen on this noncontrast study. The gallbladder appears unremarkable. No bile duct dilatation is noted. The spleen is of normal size. No focal splenic lesion is evident. The pancreas appears normal with no sign of acute or chronic pancreatitis and no mass lesion noted. The pancreatic duct is of normal caliber. The adrenal glands appear unremarkable. No renal or proximal ureteral calculi are seen. There is no hydronephrosis or perinephric stranding. No definite renal mass lesion is identified. The right ureteral stent seen before has been removed The aorta is of normal caliber. No abdominal adenopathy is seen. The stomach appears normal. There is no sign of small bowel obstruction. The colon appears unremarkable. The appendix has been removed. No free intraperitoneal fluid or air is identified. There has been interval decrease in size of a thick-walled fluid collection right anterior to the urinary bladder. This measures 3.2 x 2.2 cm, previously 5.7 x 4.9 cm. There is mild adjacent soft tissue stranding No distal ureteral or bladder calculi are seen. No obvious bladder mass lesion is evident. The iliac arteries are of normal caliber. No pelvic adenopathy is noted. The lung bases appear clear. There is coronary atherosclerosis No fracture is identified. No focal osseous lesion is seen Impression: 1. No definite sign of abdominal organ injury after trauma 2. Interval decrease in size of a complex fluid collection adjacent to the urinary bladder, which may represent a resolving hematoma. No acute hemorrhage is seen Electronically signed by rBad Dutta 03-29-2025 8:09 PM Medications Administered Current Inpatient Medications Acetaminophen (Acetaminophen 325 Mg Tab) 650 mg PO Q4H PRN PRN Reason: Pain or Fever Stop: 04/28/25 22:23 Albuterol (Albuterol Hfa 8 Gm Inhaler) 2 puffs INH Q4H PRN PRN Reason: Shortness Of Breath Or Wheezin Stop: 04/28/25 22:23 Aspirin (Aspirin 81 Mg Ectab) 81 mg PO HS KANDI Stop: 04/29/25 20:59 Dextrose (Dextrose 50% 50 Ml Syringe) 25 - 50 ml IV UD PRN; Protocol PRN Reason: Hypoglycemia Protocol Stop: 04/28/25 22:23 Fluoxetine HCl (Fluoxetine Hcl 20 Mg Cap) 40 mg PO HS KANDI Stop: 04/29/25 20:59 Glucagon (Glucagon For Inj 1 Mg Vial) 1 mg SQ UD PRN; Protocol PRN Reason: Hypoglycemia Protocol Stop: 04/28/25 22:23 Glucose (Glucose 40% Gel 15 Gm Tube) 15 - 30 gm PO UD PRN; Protocol PRN Reason: Hypoglycemia Protocol Stop: 04/28/25 22:23 Glucose (Glucose 10 Tab/Tube) 4 - 8 tab PO UD PRN; Protocol PRN Reason: Hypoglycemia Protocol Stop: 04/28/25 22:23 Sodium Chloride (Nss) 1,000 mls @ 100 mls/hr IV .Q10H KANDI Stop: 03/30/25 18:23 Last Admin: 03/30/25 08:22 Dose: 100 mls/hr Insulin Aspart (Insulin, Rapid-Acting Pump) 0 each SC Q6 KANDI; Protocol Stop: 04/29/25 05:59 Last Admin: 03/30/25 05:57 Dose: Not Given Insulin Aspart (Insulin Aspart 100 Units/Ml Vial) 0 units SC PRN PRN PRN Reason: Insulin (Rapid-Acting) Pump Refill Stop: 04/29/25 00:59 Miscellaneous (Carbohydrates For Hypoglycemia ) 15 - 30 gm PO UD PRN PRN Reason: Hypoglycemia Protocol Stop: 04/28/25 22:23 Miscellaneous (Continuous Glucose Monitor) 0 each N/A Q6 KANDI Stop: 04/29/25 05:59 Last Admin: 03/30/25 05:52 Dose: Not Given Multivitamins/Minerals (Cerovite Adv Formula Tab) 1 tab PO DAILY KANDI Stop: 04/29/25 08:59 Last Admin: 03/30/25 08:22 Dose: 1 tab Polyethylene Glycol (Polyethylene (Miralax) 17 Gm Pack) 17 gm PO DAILY PRN PRN Reason: Constipation Stop: 04/28/25 22:23 Rosuvastatin Calcium (Rosuvastatin Calcium 20 Mg Tab) 40 mg PO HS KANDI Stop: 04/29/25 20:59 Ticagrelor (Ticagrelor 90 Mg Tab) 90 mg PO BID KANDI Stop: 04/29/25 08:59 Last Admin: 03/30/25 08:22 Dose: 90 mg PG Care Time/CCT Total # of Minutes Spent Total Time Spent with Patient: Total time spent is greater than 50% in coordination of care (as documented) at patient's floor/unit and/or counseling patient: [place] [address] IN/OBS CONSULT LVL 5,80M Patient Type New Medical Decision Making High Complexity Diagnoses Syncope R55 Syncope type: unspecified RO (acute kidney injury) N17.9 Stage 3b chronic kidney disease N18.32 CAD (coronary artery disease) I25.10 (1) Syncope Syncope type: unspecified Qualified Code(s): R55 - Syncope and collapse
--- NOTE | 2025-03-30 11:16 | Hospitalist Progress Note ---
Date of Service March 30, 2025 Assessment & Plan (1) Syncope: Plan: 59-year-old female with past medical history significant for type 1 diabetes on insulin pump, diabetic nephropathy, CKD stage III, dyslipidemia, Graves' disease, history of hyperkalemia, moderate obstructive apnea, chronic rhinitis, non-ST elevated CT status post LAD stent, history of right-sided heart failure, hypertension, history of obstruction of both ureters, sciatica, anxiety, depr ession, history of ADHD, history of COVID, history of retroperitoneal hematoma, comes because of syncope and fall. Patient was in the kitchen and trying to reach her phone and next thing she remembered is her dog licking on her. She was on the ground. She thinks she may have hit her head because the back of the head was hurting some. Before falling she was doing fine. Patient does not know how long she laid down on the floor. When she woke up she was not confused. But she felt lightheaded and some shortness of breath and chest discomfort which resolved currently. She struggled to get up and went to the other room and called her . When her came and checked her blood pressure her systolic blood pressure was in 70s which concerned him and brought the patient to the hospital. Syncope and fall RO on CKD Patient presented to the hospital with syncopal episode CT head, cervical spine CT, chest x-ray, pelvis x-ray, CT abdomen pelvis no acut e findings Found to have RO on CKD with creatinine of 2.3 on admission Patient reports symptoms suggestive of orthostatic hypotension; her blood pressure during the event was in SBP of 70s. Suspect hypotension likely the reason for the syncopal episode. Plan to continue IV fluids. Stop losartan. Orthostatic vitals every 8 hours PT OT eval Echocardiogram Telemonitoring Outpatient Zio patch Elevated cpk Mild Rhabdomyolysis cpk 800 downtrended with iv hydration Type 1 diabetes Continue home insulin pump Hold Ozempic Hba1c of 7.8% History of CAD History of non-ST elevated CT in 02/2024 status post drug-eluting stent to the LAD. On aspirin, Brilinta and statin-continue History of right ventricle dilatation moderate tricuspid regurgitation Status post right and left heart catheterization demonstrating normal pulmonary pressures, no intracardiac shunt Bilateral ureteral compression secondary to severe pelvic hematoma following non-ST elevated therapy and laparoscopic appendectomy causing mass effect on the bladder and right distal right ureter with associated hydronephrosis and ureteral stents implanted by urology with relief of obstruction Left stent was removed in April and right stent was removed in July 2024 with no recurrence of compression. CAT scan today shows resolving hematoma Follows with urology Hypertension Controlled Losartan was initiated for renal protection Given her hypertension, stop losartan Obstructive sleep apnea Patient still waiting for the new CPAP machine. She could not tolerate mask CPAP while in the hospital Depression On fluoxetine-continue Cervical spinal stenosis On CAT scan today Follow-up as outpatient DVT prophylaxis SCDs for now Disposition Telemetry Full code. Plan of care discussed with patient and patient's ; agree with the plan. Time spent evaluating patient, direct bedside care, chart review, placing orders, interpretation of diagnostic studies, discussion with consultants, patient, and family members, as well as other required patient management activities is 50 minutes Please note the above document was generated using voice recognition software. It may contain grammatical, syntax or spelling errors. Any formal questions or concerns about the content, text or information contained within the body of this dictation should be directly addressed to the provider for clarification Admission and Anticipated Discharge Date Admission Date: March 29, 2025 Subjective Patient seen and examined at bedside. She is lying in the bed comfortably. She is undergoing echocardiogram. Denies any dizziness at this time. Alert oriented x 3 and saturating well on room air. Review of Systems Review of Systems: All systems reviewed & are unremarkable except as noted in Subjective Physical Exam Physical Exam: Constitutional: WD/WN, vitals as above, NAD, sitting up in bed, pleasant, conversing easily Respiratory: normal respiratory effort, lungs clear to auscultation, no wheeze, rales, rhonchi. Normal insp/exp effort, no accessory muscle use Cardiovascular: RRR, no murmur, no edema Vessels: no JVD or carotid bruit Chest: normal inspection of chest Abdomen: normal bowel sounds, soft, nontender, no hepatosplenomegaly Musculoskeletal: no cyanosis or clubbing, extremities motor strength 5/5 Skin: no rashes, warm and dry normal turgor Neurologic: PERRL, EOMI, accommodation nl, no face palsy, no dysarthria CN's II- XI intact bilaterally and moves all extremities Psychiatric: A+Ox3, euthymic affect Results & Data Results & Data Vital Signs (Past 12 Hours) Vital Signs Temp Pulse Resp BP Pulse Ox O2 Del Method 03/30/25 10:57 36.7 C 72 18 124/76 98 Room Air 03/30/25 07:04 36.5 C 71 18 120/66 99 Room Air 03/30/25 02:37 36.6 C 73 18 119/67 99 Room Air (1) Syncope Syncope type: unspecified Qualified Code(s): R55 - Syncope and collapse
--- NOTE | 2025-03-30 13:59 | XCELERA ---
[id number]
[2025-03-30 14:52] VITALS: BP 123/64; PULSE 83; TEMP 97.9; O2SAT 95
--- NOTE | 2025-03-30 15:39 | Discharge Summary ---
Date of Service March 30, 2025 Admission HPI Per Admitting Provider 59-year-old female with past medical history significant for type 1 diabetes on insulin pump, diabetic nephropathy, CKD stage III, dyslipidemia, Graves' disease, history of hyperkalemia, moderate obstructive apnea, chronic rhinitis, non-ST elevated [place] status post LAD stent, history of right-sided heart failure, hypertension, history of obstruction of both ureters, sciatica, anxiety, depression, history of ADHD, history of COVID, history of retroperitoneal hematoma, comes because of syncope and fall. Patient was in the kitchen and trying to reach her phone and next thing she remembered is her dog licking on her. She was on the ground. She thinks she may have hit her head because the back of the head was hurting some. Before falling she was doing fine. Patient does not know how long she laid down on the floor. When she woke up she was not confused. But she felt lightheaded and some shortness of breath and chest discomfort which resolved currently. She struggled to get up and went to the other room and called her . When her came and checked her blood pressure her systolic blood pressure was in 70s which concerned him and brought the patient to the hospital. Her oxygen saturations were okay. Patient currently resting comfortably and hemodynamic stable. Denies any blurred vision. No headache. No runny nose. No sore throat. No cough. No fevers. Eating and drinking okay. Currently no chest pain or shortness of breath. No nausea. No abdominal pain. No diarrhea or constipation. No blood in stools. Micturating okay. Patient has history of vertigo managed with Mayur maneuver. Past medical history as mentioned above. Past surgical history. Cardiac catheterization. . Cystoscopy. Injection of lumbosacral spine. Laparoscopic appendectomy. Ligation of oviduct. Laser surgery for leaking blood vessel. Cataracts. Social history. . No smoking. Alcohol rarely. No drug use. Family history. Brother had type 1 diabetes. Father had lung disorder. Admission Exam Per Admitting Provider General- Not in distress Head- atraumatic Eyes- PERRL. ENT- oropharynx clear Neck- supple, no JVD. Lungs- clear to auscultation no wheezing or crackles Heart- regular rate and rhythm; no murmur, no gallop. Abdomen- normal bowel sounds, soft, nontender, no distension Extremities- no pretibial edema, no erythema seen Neuro- alert, oriented PERRL, no facial palsy; no dysarthria; motor 5/5 bilaterally. Principal Diagnosis Hypotension RO on CKD Discharge Exam Constitutional: WD/WN, vitals as above, NAD, sitting up in bed, pleasant, conversing easily Respiratory: normal respiratory effort, lungs clear to auscultation, no wheeze, rales, rhonchi. Normal insp/exp effort, no accessory muscle use Cardiovascular: RRR, no murmur, no edema Vessels: no JVD or carotid bruit Chest: normal inspection of chest Abdomen: normal bowel sounds, soft, nontender, no hepatosplenomegaly Musculoskeletal: no cyanosis or clubbing, extremities motor strength 5/5 Skin: no rashes, warm and dry normal turgor Neurologic: PERRL, EOMI, accommodation nl, no face palsy, no dysarthria CN's II- XI intact bilaterally and moves all extremities Psychiatric: A+Ox3, euthymic affect Discharge Data Allergies Allergy/AdvReac Type Severity Reaction Status Date / Time CHAPARRO Inhibitors Allergy Intermediate cough Verified 01/09/25 12:57 Penicillins Allergy Intermediate rash Verified 01/09/25 12:57 Consultations 03/29/25 20:13 ED Decision to Admit Stat 03/30/25 08:00 Consult Cardiology Routine Ordered Studies 03/29/25 19:16 CT cervical spine wo con Stat CT head/brain wo con Stat 03/29/25 19:37 CT abd pelvis wo con Stat Hospital Course (1) Syncope: 59-year-old female with past medical history significant for type 1 diabetes on insulin pump, diabetic nephropathy, CKD stage III, dyslipidemia, Graves' disease, history of hyperkalemia, moderate obstructive apnea, chronic rhinitis, non-ST elevated FL status post LAD stent, history of right-sided heart failure, hypertension, history of obstruction of both ureters, sciatica, anxiety, depression, history of ADHD, history of COVID, history of retroperitoneal hematoma, comes because of syncope and fall. Patient was in the kitchen and trying to reach her phone and next thing she remembered is her dog licking on her. She was on the ground. She thinks she may have hit her head because the back of the head was hurting some. Before falling she was doing fine. Patient does not know how long she laid down on the floor. When she woke up she was not confused. But she felt lightheaded and some shortness of breath and chest discomfort which resolved currently. She struggled to get up and went to the other room and called her . When her came and checked her blood pressure her systolic blood pressure was in 70s which concerned him and brought the patient to the hospital. Syncope and fall RO on CKD Patient presented to the hospital with syncopal episode CT head, cervical spine CT, chest x-ray, pelvis x-ray, CT abdomen pelvis no acute findings Found to have RO on CKD with creatinine of 2.3 on admission Patient reports symptoms suggestive of orthostatic hypotension; her blood pressure during the event was in SBP of 70s. Suspect hypotension likely the reason for the syncopal episode. Patient was treated with IV fluids with improvement in her kidney function. Cardiology was consulted for comanagement and she underwent echocardiogram which showed normal EF. Her losartan was stopped due to low blood pressure. Patient was discharged home with instruction to follow-up with PCP and obtain BMP to monitor her kidney function, as well as undergo Zio patch cardiac monitoring as outpatient. Please note the above document was generated using voice recognition software. It may contain grammatical, syntax or spelling errors. Any formal questions or concerns about the content, text or information contained within the body of this dictation should be directly addressed to the provider for clarification Total Time Total Time Spent Total Time Spent (In Minutes): 45 Total Time Includes: Examination of the Patient, Discharge Planning, Medication Reconciliation, Communication With Other Providers and Other Discharge Plan Discharge Items Patient Disposition: Home - Self-Care Reason For Visit: SYNCOPE, RO Discharge Diagnosis: Syncopal episode RO on CKD Condition on Discharge: Fair Activity: Resume your previous activity Non-emergency contact: Primary Care Provider Call non-emergency contact if: you have any medication questions and your symptoms worsen Follow-up/Referrals: Antonio Cristobal MD [Primary Care Provider] - Diet: Regular Addtl Attending Provider Instructions: You were admitted to the hospital with a syncopal episode. The likely cause is hypotension. You were treated with iv fluids. Please stop taking Losartan. Use compression stocking Follow up with your PCP as schedule for zio-patch ( heart monitor) and repeat BMP ( to check on your kidney function and electrolytes) Pending Studies at Discharge: No Stand-Alone Forms: [facility], Smoking Cessation Medications and DC Order Prescriptions: Continued fluoxetine 40 mg capsule 40 mg PO HS aspirin 81 mg tablet,delayed release (DR/EC) 81 mg PO HS insulin aspart U-100 [Novolog U-100 Insulin aspart] 100 unit/mL solution 1 unit subcut UD Rx Instructions: INSULIN PUMP albuterol sulfate 90 mcg/actuation HFA aerosol inhaler 2 inh INHALATION Q4H PRN (Reason: Shortness Of Breath Or Wheezing) rosuvastatin 40 mg tablet 40 mg PO HS ticagrelor [Brilinta] 90 mg tablet 90 mg PO BID Ozempic 1 mg/dose (4 mg/3 mL) pen injector 1 mg SUBCUT WK Centrum Silver Women 8 mg iron-400 mcg-50 mcg Tablet 1 tab PO DAILY Discontinued losartan 25 mg tablet 12.5 mg PO HS Discharge Orders: Discharge Order (Routine); Ordered 03/30/25 Ordered By: Quinn Branch/Other Patient Handouts: Managing Type 1 Diabetes Admission Data Admit Date/Time: 03/29/25 21:15 Attending Provider: Quinn Oden Admit Provider: Rashi Zamora Primary Care Provider: Antonio Cristobal Other Providers: Rashi Zamora; Sukhwinder Hoff
[2025-03-30] MEDS ORDERED: ROSUVASTATIN CALCIUM 20 MG TAB PO SCH (21:00)
[2025-03-30] MEDS ORDERED: ASPIRIN 81 MG ECTAB PO SCH (21:00)
--- NOTE | 2025-04-01 13:03 | Electrocardiogram Report ---
Test Reason : Blood Pressure : */* mmHG Vent. Rate : 73 BPM Atrial Rate : 73 BPM P-R Int : 140 ms QRS Dur : 96 ms QT Int : 422 ms P-R-T Axes : 32 38 53 degrees QTcB Int : 464 ms Normal sinus rhythm Low voltage QRS RSR' or QR pattern in V1 suggests right ventricular conduction delay T wave abnormality, consider anterior ischemia Abnormal ECG When compared with ECG of 30-Mar-2024 15:52, No significant change Confirmed by Dwain Phelps ([id number]) on 04/01/2025 1:02:58 PM Referred By: REFERRED SELF Confirmed By: Dwain Phelps
--- NOTE | 2025-04-01 13:14 | Electrocardiogram Report ---
Test Reason : Blood Pressure : */* mmHG Vent. Rate : 70 BPM Atrial Rate : 70 BPM P-R Int : 168 ms QRS Dur : 102 ms QT Int : 430 ms P-R-T Axes : 65 67 60 degrees QTcB Int : 464 ms Poor data quality, interpretation may be adversely affected Normal sinus rhythm Low voltage QRS Incomplete right bundle branch block Nonspecific ST and T wave abnormality Abnormal ECG When compared with ECG of 29-Mar-2025 20:21, (unconfirmed) No significant change Confirmed by Dwain Phelps ([id number]) on 04/01/2025 1:14:09 PM Referred By: REFERRED SELF Confirmed By: Dwain Phelps
== END 2025-03-30 16:15 | disposition home or self-care (01) | DRG 312 ==
LOC: ED 18:35 → 2E 21:15